=== PATIENT | female | born 2000 | race Caucasian/White ===

== ENCOUNTER 2023-05-11 11:00 | Outpatient (OUT) | payer OTHER, BC, SELFPAY ==
[2023-05-11 11:33] LABS: Basophils Percent Auto 0.6 % (0.2-2.0); Eosinophils Absolute Auto 0.1 10^3/uL (0.0-0.7); Eosinophils Percent Auto 1.7 % (0.9-7.0); Hematocrit 38.8 % (36.0-48.0); Hemoglobin 13.2 g/dL (12.0-16.0); Immature Granulocytes Abs Auto 0.01 10^3/uL (0.00-0.03); Immature Granulocytes Pct Auto 0.2 % (0.0-0.5); Lymphocytes Absolute Auto 1.8 10^3/uL (1.2-3.8); Lymphocytes Percent Auto 38.5 % (20.5-60.0); Mean Corpuscular Hemoglobin 29.9 pg (26.7-34.0); Mean Corpuscular Volume 87.8 fL (81.0-99.0); Mean Platelet Volume 8.4 fL (9.5-13.5); Monocytes Absolute Auto 0.3 10^3/uL (0.3-0.8); Monocytes Percent Auto 5.8 % (1.7-12.0); Neutrophils Absolute Auto 2.5 10^3/uL (1.4-6.5); Neutrophils Percent Auto 53.2 % (43.0-75.0); Platelet Count 237 10^3/uL (150-450); Red Blood Count 4.42 10^6/uL (4.20-5.40); Red Cell Distribution Width 11.5 % (11.0-15.0); White Blood Count 4.7 10^3/uL (4.0-11.0)
[2023-05-11 12:10] LABS: Alanine Aminotransferase 40 U/L (14-59); Albumin Globulin Ratio 0.9; Albumin Level 3.6 g/dL (3.4-5.0); Alkaline Phosphatase 73 U/L (46-116); Anion Gap 13.2; Aspartate Amino Transferase 28 U/L (15-37); BUN Creatinine Ratio 9.3; Bilirubin Total 0.3 mg/dL (0.2-1.0); Calcium 8.6 mg/dL (8.5-10.1); Carbon Dioxide 25.7 mmol/L (21.0-32.0); Chloride 104 mmol/L (98-107); Chol HDL Ratio 5.1; Cholesterol 197 mg/dL (<=200); Estimated GFR (African America >60 (>=60); Estimated GFR (Non-African Ame >60 (>=60); Free T3 3.16 pg/mL (2.18-3.98); Globulin 3.8 g/dL; Glucose 89 mg/dL (74-106); HDL Cholesterol 39 mg/dL (40-60); Potassium 3.9 mmol/L (3.5-5.1); Sodium 139 mmol/L (136-145); Thyroid Stimulating Hormone 2.091 uIU/mL (0.358-3.740); Total Protein 7.4 g/dL (6.4-8.2); Triglycerides 143 mg/dL (<=150); VLDL CHOLESTEROL 28.6 mg/dL
[2023-05-11 12:35] LABS: Free T4 0.89 ng/dL (0.76-1.46)
[2023-05-11 19:24] LABS: Estimated Average Glucose 100 mg/dL; Glycohemoglobin A1C 5.1 % (4.5-6.2)
[2023-05-12 11:08] LABS: Insulin 26.6 uIU/mL (2.6-24.9)
[2023-05-12 13:09] LABS: Thyroglobulin Antibody <1.0 IU/mL (0.0-0.9); Thyroid Peroxidase (TPO) Ab 14 IU/mL (0-34)
[2023-05-12 14:09] LABS: ANA Direct Negative (Negative)
[2023-05-15 00:07] LABS: Free Testosterone(Direct) 3.9 pg/mL (0.0-4.2); Testosterone 58 ng/dL (13-71)
== END 2023-05-11 11:01 | disposition home or self-care (01) ==
LOC: LAB 11:06
PROVIDERS: PCP Nurse Practitioner; Visit Provider Nurse Practitioner
DX: F41.9 Anxiety disorder, unspecified (principal); L65.9 Nonscarring hair loss, unspecified; G47.00 Insomnia, unspecified; E66.01 Morbid (severe) obesity due to excess calories; Z68.41 Body mass index [BMI] 40.0-44.9, adult
CPT/HCPCS: 36415; 80053; 80061; 82627; 82728; 83036; 83525; 84402; 84403; 84439; 84443; 84481; 85025; 86038; 86376; 86800

== ENCOUNTER 2023-05-17 20:42 | Emergency (ER) | payer OTHER, BC, SELFPAY ==
[2023-05-17 20:46] VITALS: BP 131/95; PULSE 114; RESP 18; TEMP 36.7; O2SAT 99; BMI 40.2
--- NOTE | 2023-05-17 21:10 | ED.GENADUL1 ---
Documented by User: Flower Grier 05/17/23 21:31 HPI - General Adult General Chief complaint: OB/Uterine Contractions Stated complaint: spotting Time Seen by Provider: 05/17/23 20:54 Mode of arrival: walk-in History of Present Illness HPI narrative: 22-year-old female presents with chief complaint of vaginal bleeding. She states she had one positive test at home. She's been spotting for the last 2-3 days. She is otherwise healthy no acute distress. She denies a history of in the past.Patient has not had a missed cycle. She is zero. Related Data Home Medications Medication Instructions Recorded Confirmed aripiprazole 10 mg tablet mg 05/17/23 mirtazapine 15 mg tablet mg 05/17/23 venlafaxine 37.5 mg mg PO 05/17/23 capsule,extended release 24 hr Allergies Allergy/AdvReac Type Severity Reaction Status Date / Time No Known Drug Allergies Allergy Verified 05/17/23 20:51 Review of Systems ROS Narrative All Systems are negative except as noted/marked.All systems reviewed and otherwise negative PFSH PFSH Social History Smoking status: Never smoker Exam Narrative Exam Narrative: Nurses note and vital signs reviewed and patient is not hypoxic. General: The patient appears well and in no apparent distress. Patient is resting comfortably on cart. Skin: Warm, dry, no pallor noted. There is no rash noted. Head: Normocephalic, atraumatic Eye: Normal conjunctiva, no drainage, EOMI. PERRL Ears, Nose, Mouth, and Throat: oral mucosa is moist. Nares patent. Mouth without vesicles. Ear canals patent. Tm's without Erythema Cardiovascular: Regular Rate and Rhythm Respiratory: Patient is in no distress, no accessory muscle use, lungs are clear to auscultation, no wheezing, rales or rhonchi Back: non-tender, no CVA tenderness bilaterally to percussion. Musculoskeletal: The patient has no evidence of calf tenderness, no pitting edema, symmetrical pulses noted bilaterally Neurological: A&O x4, normal speech Psychiatric: Cooperative Constitutional Vital Signs, click to edit/add: Last Vital Signs Temp 98.1 F 05/17/23 20:46 Pulse 114 H 05/17/23 20:46 Resp 18 05/17/23 20:46 BP 131/95 H 05/17/23 20:46 Pulse Ox 99 05/17/23 20:46 O2 Del Method Room Air 05/17/23 20:46 Course Vital Signs Vital signs: Vital Signs Temperature 98.1 F 05/17/23 20:46 Pulse Rate 114 H 05/17/23 20:46 Respiratory Rate 18 05/17/23 20:46 Blood Pressure 131/95 H 05/17/23 20:46 Pulse Oximetry 99 05/17/23 20:46 Oxygen Delivery Method Room Air 05/17/23 20:46 Temperature 98.1 F 05/17/23 20:46 Pulse Rate 114 H 05/17/23 20:46 Respiratory Rate 18 05/17/23 20:46 Blood Pressure 131/95 H 05/17/23 20:46 Pulse Oximetry 99 05/17/23 20:46 Oxygen Delivery Method Room Air 05/17/23 20:46 Medical Decision Making MDM Narrative Medical decision making narrative: Patient presented here with chief complaint of vaginal bleeding she states she had a positive presents to test at home she has not yet had a missed menses. She states she has spotting three days ago and again after having intercourse. Patient transfer care to Dr. Longoria. Patient be of be discharged home once labwork on her back. I did discuss results pending with patient. She will follow-up with Dr. Hui. Medical Records Medical records reviewed: Yes I reviewed the patient's medical records Lab Data Labs: Lab Results 05/17/23 05/17/23 Range/Units 21:05 21:27 HCG, Quant 22 mIU/mL Urine HCG, Qual Positive A (NEGATIVE) Blood Type A Positive Discharge Plan Discharge Chief Complaint: OB/Uterine Contractions Clinical Impression: Miscarriage, threatened, early Patient Disposition: Home, Self-Care Prescriptions / Home Meds: No Action venlafaxine 37.5 mg capsule,extended release 24hr PO mirtazapine 15 mg tablet aripiprazole 10 mg tablet Instructions: Threatened Miscarriage (ED) Stand Alone Forms: Portal Instructions Referrals: Ying Reid NP [Primary Care Provider] - 1 week Documented by User: Gabino Longoria MD 05/17/23 22:07 HPI - General Adult General Chief complaint: OB/Uterine Contractions Stated complaint: spotting Time Seen by Provider: 05/17/23 20:54 Related Data Home Medications Medication Instructions Recorded Confirmed aripiprazole 10 mg tablet mg 05/17/23 mirtazapine 15 mg tablet mg 05/17/23 venlafaxine 37.5 mg mg PO 05/17/23 capsule,extended release 24 hr Allergies Allergy/AdvReac Type Severity Reaction Status Date / Time No Known Drug Allergies Allergy Verified 05/17/23 20:51 PFSH PFSH Social History Smoking status: Never smoker Exam Constitutional Vital Signs, click to edit/add: Last Vital Signs Temp 98.1 F 05/17/23 20:46 Pulse 114 H 05/17/23 20:46 Resp 18 05/17/23 20:46 BP 131/95 H 05/17/23 20:46 Pulse Ox 99 05/17/23 20:46 O2 Del Method Room Air 05/17/23 20:46 Course Vital Signs Vital signs: Vital Signs Temperature 98.1 F 05/17/23 20:46 Pulse Rate 114 H 05/17/23 20:46 Respiratory Rate 18 05/17/23 20:46 Blood Pressure 131/95 H 05/17/23 20:46 Pulse Oximetry 99 05/17/23 20:46 Oxygen Delivery Method Room Air 05/17/23 20:46 Temperature 98.1 F 05/17/23 20:46 Pulse Rate 114 H 05/17/23 20:46 Respiratory Rate 18 05/17/23 20:46 Blood Pressure 131/95 H 05/17/23 20:46 Pulse Oximetry 99 05/17/23 20:46 Oxygen Delivery Method Room Air 05/17/23 20:46 Medical Decision Making MDM Narrative Medical decision making narrative: Patient presented here with chief complaint of vaginal bleeding she states she had a positive presents to test at home she has not yet had a missed menses. She states she has spotting three days ago and again after having intercourse. Patient transfer care to Dr. Longoria. Patient be of be discharged home once labwork on her back. I did discuss results pending with patient. She will follow-up with Dr. uHi. care transferred at change of shift. labs returned with positive . Patient advised of the working diagnosis of bleeding early or threatened miscarriage. 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
[2023-05-17 21:33] LABS: HCG Quantitative 22 mIU/mL
[2023-05-17 21:35] LABS: HCG Qualitative Urine* POSITIVE (NEGATIVE)
== END 2023-05-17 22:21 | disposition home or self-care (01) ==
PROVIDERS: Physician Assistant; Emergency Provider Internal Medicine; PCP Nurse Practitioner
DX: O20.0 Threatened abortion (principal); Z3A.00 Weeks of gestation of pregnancy not specified; Z79.899 Other long term (current) drug therapy
CPT/HCPCS: 36415; 84702; 84703; 86900; 86901; 99283

== ENCOUNTER 2023-05-19 15:05 | Outpatient (OUT) | payer OTHER, BC, SELFPAY ==
[2023-05-19 15:45] LABS: HCG Quantitative 47 mIU/mL
== END 2023-05-19 15:06 | disposition home or self-care (01) ==
PROVIDERS: PCP Nurse Practitioner; Visit Provider Nurse Practitioner
DX: Z32.01 Encounter for pregnancy test, result positive (principal)
CPT/HCPCS: 36415; 84702

== ENCOUNTER 2023-05-25 06:36 | Outpatient (OUT) | payer OTHER, BC, SELFPAY ==
[2023-05-25 07:43] LABS: HCG Quantitative 143 mIU/mL
== END 2023-05-25 06:37 | disposition home or self-care (01) ==
LOC: LAB 06:38
PROVIDERS: PCP Nurse Practitioner; Visit Provider Nurse Practitioner
DX: Z32.01 Encounter for pregnancy test, result positive (principal)
CPT/HCPCS: 36415; 84702

== ENCOUNTER 2023-06-01 20:52 | Emergency (ER) | payer OTHER, BC, SELFPAY ==
[2023-06-01 20:58] VITALS: BP 133/100; PULSE 91; RESP 16; TEMP 37.3; O2SAT 99; BMI 40.2
--- NOTE | 2023-06-01 21:22 | ED_ITS ---
HPI - Female Genitourinary General Chief complaint: OB/Uterine Contractions Stated complaint: 7WKS , CRAMPING, BLEEDING, FEVER Time Seen by Provider: 06/01/23 21:00 Source: patient Mode of arrival: walk-in History of Present Illness HPI Narrative: This 22-year-old female presents for evaluation of lower abdominal cramping With a small amount of spotting. The patient has been seen here recently and was told she was . She has had several beta quantitative hCGs done. She states she has had intermittent spotting since finding out that she was but today it became more red and pink. She states it is less than a menstrual period. She is also having some lower abdominal cramping. She was seen for a nurse visit at Dr. Hui office earlier today, this is her EDUCATIONAL SPECIALIST in [place]. She is scheduled for an ultrasound next week. She denies any passage of tissues. She is not having any back pain. She states she is not certain how far along she is in her because she had a menstrual period in April and then in May. She and her boyfriend then had sex and she was told that she was . This is her 1st test. She had a quantitative hCG done earlier today in [place]. Related Data Home Medications Medication Instructions Recorded Confirmed aripiprazole 10 mg tablet mg 05/17/23 mirtazapine 15 mg tablet mg 05/17/23 venlafaxine 37.5 mg mg PO 05/17/23 capsule,extended release 24 hr Allergies Allergy/AdvReac Type Severity Reaction Status Date / Time No Known Drug Allergies Allergy Verified 06/01/23 21:02 Review of Systems ROS Status of ROS 10 or more systems reviewed and unremarkable except as noted in history and below [facility] Social History Smoking status: Never smoker Exam Narrative Exam Narrative: Nurses note and vital signs reviewed and patient is not hypoxic. Blood pressure noted to be elevated at 133/100 General: The patient appears well and in no apparent distress. Patient is resting comfortably on cart. Skin: Warm, dry, no pallor noted. There is no rash noted. Head: Normocephalic, atraumatic Eye: Normal conjunctiva, no drainage, EOMI. PERRL Ears, Nose, Mouth, and Throat: oral mucosa is moist. Cardiovascular: Regular Rate and Rhythm S1S2, no murmurs, rubs or gallops Respiratory: Patient is in no distress, no accessory muscle use, lungs are clear to auscultation, no wheezing, rales or rhonchi Back: non-tender, no CVA tenderness bilaterally to percussion. GI: Obese, soft, non-distended, no rebound , guarding or rigidity - pt declines exam Musculoskeletal: The patient has no evidence of calf tenderness, no pitting edema, symmetrical pulses noted bilaterally Neurological: A&O x4, normal speech Psychiatric: Cooperative Constitutional Vital Signs, click to edit/add: Last Vital Signs Temp 99.1 F 06/01/23 20:58 Pulse 91 H 06/01/23 20:58 Resp 16 06/01/23 20:58 BP 133/100 H 06/01/23 20:58 Pulse Ox 99 06/01/23 20:58 O2 Del Method Room Air 06/01/23 20:58 Course Reevaluation(s) Reevaluation #1: Pts blood type is A+ Vital Signs Vital signs: Vital Signs Temperature 99.1 F 06/01/23 20:58 Pulse Rate 91 H 06/01/23 20:58 Respiratory Rate 16 06/01/23 20:58 Blood Pressure 133/100 H 06/01/23 20:58 Pulse Oximetry 99 06/01/23 20:58 Oxygen Delivery Method Room Air 06/01/23 20:58 Temperature 99.1 F 06/01/23 20:58 Pulse Rate 91 H 06/01/23 20:58 Respiratory Rate 16 06/01/23 20:58 Blood Pressure 133/100 H 06/01/23 20:58 Pulse Oximetry 99 06/01/23 20:58 Oxygen Delivery Method Room Air 06/01/23 20:58 MDM - Female Genitourinary MDM Narrative Medical decision making narrative: This 22-year-old female whose last menstrual period was either in April or May presents for evaluation of lower abdominal cramping and light va ginal bleeding/spotting. Been having these symptoms throughout her entire and has been told that she is at risk for a miscarriage. She has not had any passage of any tissue. She was seen yesterday at her EDUCATIONAL SPECIALIST's office by a nurse and had a beta quantitative hCG done. We were unable to get the results of the hCG and ordered one from the emergency department. Her number today is 129. This is decreased from a previous quantitative hCG that she had approximately one week ago. Her blood type is A positive. She is hemodynamically stable in emergency department. She declined a pelvic exam and we do not have any. since we do not have any ultrasound available at night she was offered an ultrasound tomorrow and will come to the hospital for a follow up US at 7am. She was encouraged to not empty her bladder when she gets up and come to registration around 6:30 for the US appointment at 7am. Clinically, as I explained to her, she is still considered to have a threatened miscarriage. Lab Data Labs: Lab Results 06/01/23 Range/Units 21:45 HCG, Quant 129 mIU/mL Discharge Plan Discharge Chief Complaint: OB/Uterine Contractions Clinical Impression: Miscarriage, threatened, early Time of Disposition Decision: 22:36 Condition: Good Prescriptions / Home Meds: No Action venlafaxine 37.5 mg capsule,extended release 24hr PO Hold Instructions: mirtazapine 15 mg tablet Hold Instructions: aripiprazole 10 mg tablet Hold Instructions: Doctor's Order Instructions: Threatened Miscarriage (ED) Additional Instructions: Follow-up tomorrow for your ultrasound at 7 AM. Please keep your bladder full prior to the ultrasound. Return to the emergency department for severe abdominal pain, heavy vaginal bleeding or other concerns. Stand Alone Forms: Portal Instructions Referrals: Ying Reid NP [Primary Care Provider] - 1 week
[2023-06-01] MEDS: ACETAMINOPHEN 325 MG TABLET 650 MG PO (21:47)
[2023-06-01 22:14] LABS: HCG Quantitative 129 mIU/mL
[2023-06-01 22:30] LABS: Bilirubin Urine NEGATIVE (NEGATIVE); Blood Urine LARGE (NEGATIVE); Clarity Urine CLEAR (CLEAR); Color Urine LT. YELLOW (YELLOW); Glucose Urine UA NEGATIVE (NEGATIVE); Ketones Urine NEGATIVE (NEGATIVE); Leukocyte Esterase Urine NEGATIVE (NEGATIVE); Nitrite Urine NEGATIVE (NEGATIVE); Protein Urine NEGATIVE (NEG/TRACE); Specific Gravity Urine >=1.030 (1.005-1.025); Urobilinogen Urine 0.2 EU/dL (0.2-1.0)
[2023-06-01 22:37] LABS: Bacteria Urine LARGE #/HPF (NONE SEEN); Cast Seen? NONE SEEN #/LPF (NONE SEEN); Crystals Seen? None Seen #/HPF (None Seen); Mucus Urine LARGE (NONE SEEN); Squamous Epithelial Cell Urine MANY #/LPF (NONE/RARE)
== END 2023-06-01 22:46 | disposition home or self-care (01) ==
PROVIDERS: Emergency Provider Emergency Medicine; PCP Nurse Practitioner
DX: O20.0 Threatened abortion (principal); Z3A.01 Less than 8 weeks gestation of pregnancy
CPT/HCPCS: 36415; 81001; 84702; 99284

== ENCOUNTER 2023-06-02 06:29 | Outpatient (OUT) | payer OTHER, BC, SELFPAY ==
--- NOTE | 2023-06-02 | US_ITS ---
[place] [id number] Patient Name: LETICIA NUGENT MRN: [id number] date: 2000 Sex: F Assigned Patient Location: RAD Current Patient Location: RAD Accession/Order Number: [id number] Exam Date: 06/02/2023 07:01 Report Date: 06/02/2023 08:06 At the request of: NON-STAFF PHYSICIAN Procedure: US OB transvaginal EXAMINATION: US OB transvaginal HISTORY: preg., vag bleeding COMPARISON: No relevant comparison available. FINDINGS: GESTATIONAL SAC: Absent YOLK SAC: Absent POLE: Absent CARDIAC: Absent UTERUS: Normal size and appearance; endometrium is homogeneous and 6 mm in thickness. OVARIES: Right: Contains 2 prominent slightly complex cysts, 4.7 cm and 3.8 cm respectively. Left: Contains a 2.4 cm slightly complex cyst. CERVIX: 3.1 cm in length and closed. CUL-DE-SAC: Normal. OTHER: None. AGE BY LMP: 8 weeks 1 day KAPIL BY LMP: 01/11/[birth year]24 AGE BY US CRL: Not applicable KAPIL BY US CRL: US/US OB transvaginal IMPRESSION: 1. No intrauterine . 2. Thin endometrium and no overtly suspicious adnexal findings to suggest ectopic . 3. Prominent bilateral ovarian cysts; consider follow-up imaging in 6 weeks to document regression. Electronically authenticated by: GISELL BARBER Date: 06/02/2023 08:06
== END 2023-06-02 06:30 | disposition home or self-care (01) ==
LOC: RAD 06:32
PROVIDERS: PCP Nurse Practitioner
DX: O20.9 Hemorrhage in early pregnancy, unspecified (principal); Z3A.08 8 weeks gestation of pregnancy
CPT/HCPCS: 76817

== ENCOUNTER 2023-09-08 00:56 | Emergency (ER) | payer OTHER, BC, SELFPAY ==
[2023-09-08 01:00] VITALS: BP 159/95; PULSE 88; RESP 16; TEMP 36.8; O2SAT 99; BMI 42.1
--- OUTSIDE RECORDS SUMMARY | 2023-09-08 01:03 | XMS_ITS | CCD ---
Author Name Unknown Address [address] [place] [address] Organization [facility] Care Team Providers Care Pulp Grinder Feeder Name Role Phone IRFAN, DHRUV Unavailable Unavailable ARCELIA FLETCHER () Unavailable Unavaila ARCELIA Baeza) Unavailable Unavaila ARCELIA Baeza) Unavailable Unavaila ble ARCELIA FLETCHER) Unavailable Unavaila ble ARCELIA FLETCHER) Unavailable Unavaila ble CARLOS OCHOA E Unavailable Unavailable IRFAN, DHRUV Unavailable Unavailable IRFAN, DHRUV Unavailable Unavailable IRFAN, DHRUV Unavailable Unavailable IRFAN, DHRUV Unavailable Unavailable Esther Beal Unavailable Crys Truong Unavailable Mitzi Obregon Unavailable KATHY RIED Attending Unavailable KATHY REID Consulting Unavailable KATHY REID Primary Care Unavailable KATHY REID Admitting Unavailable Lei Salmeron MD Primary Care Provider Jeanette DRIVER LICENSE TECHNICIAN, Ying Unavailable KELSY WALKER Attending Unavailable KELSY WALKER Referring Unavailable KELSY WALKER Attending Unavailable YING REID Attending Unavailable Medications Current Medications Medication Drug Class(es) Dates Sig (Normalized) Sig (Original) aspirin 81 mg chewable tablet (3 sources) Platelet Aggregation Inhibitor, Nonsteroidal Anti-inflammatory Drug Start: 07-16-2023 End: 07-15-2024 aspirin 81 MG chewable tablet Indications: Miscarriage Chew 1 tablet (81 mg) in the morning. 30 tablet 11 07/16/2023 07/15/2024 Active azithromycin 250 mg oral tablet (2 sources) Macrolide Antimicrobial Start: 08-18-2023 azithromycin (Zithromax) 250 MG tablet Indications: Laryngitis 2 pills day #1, 1 pill day #2-#5 6 tablet 0 08/18/2023 Active Start: 08-18-2023 azithromycin ( Zithromax) 250 MG tablet Indications: Laryngitis 2 pills day #1, 1 pill day #2-#5 6 tablet 0 08/18/2023 Active olopatadine 2 mg/ml ophthalmic solution (1 source) Histamine-1 Receptor Inhibitor Start: 12-09-2021 take 1 drop(s) into the eye(s) once daily Pataday 0.2 % 1 drop into affected eye Ophthalmic Once a day Dec, Active Completed/Discontinued Medications Medication Drug Class(es) Dates Sig (Normalized) Sig (Original) Biotin (3 sources) Biotin Not-Takin g Complete (3 sources) Complet e Not-Taking Problems Active Problems Problem Classification Problem Date Documented Da te Episodic/Chronic Adjustment disorders (3 sources) Adjustment disorder with depressed mood; Translations: [Adjustment disorder with depressed mood] Onset: 08-18-2023 08-18-2023 Chronic Anxiety disorders (3 sources) Mixed anxiety and depressive disorder; Translations: [Anxiety disorder, unspecified] Onset: 08-18-2023 08-18-2023 Chronic Disorders of teeth and jaw (3 sources) Torus palatinus; 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] Onset: 08-18-2023 08-18-2023 Episodic Menstrual disorders (3 sources) Break-through bleeding; Translations: [Excessive and frequent menstruation with irregular cycle] Onset: 08-18-2023 08-18-2023 Chronic Miscellaneous mental health disorders (1 source) Primary insomnia; Translations: [PRIMARY INSOMNIA] Onset: 08-07-2022 Chronic Mood disorders (3 sources) Mood disorder; Translations: [Unspecified mood [affective] disorder] Onset: 08-18-2023 08-18-2023 Chronic Other endocrine disorders (3 sources) Hyperinsulinism; Translations: [Other hypoglycemia] Onset: 08-18-2023 08-18-2023 Chronic Other endocrine disorders (3 sources) Polycystic ovary syndrome; Translations: [Polycystic ovarian syndrome] Onset: 08-18-2023 08-18-2023 Chronic Other nutritional; endocrine; and metabolic disorders (5 sources) Body mass index 40+ - severely obese; Translations: [Morbid (severe) obesity due to excess calories] Onset: 08-18-2023 08-18-2023 Chronic Other skin disorders (3 sources) Alopecia; Translations: [Nonscarring hair loss, unspecified] Onset: 08-18-2023 08-18-2023 Episodic Other upper respiratory disease (1 source) Allergic rhinitis, unspecified Onset: 12-09-2021 Resolved: 12-09-2021 Chronic Other upper respiratory disease (3 sources) Allergic rhinitis; Translations: [Allergic rhinitis, unspecified] Onset: 08-18-2023 08-18-2023 Chronic Other upper respiratory infections (4 sources) Laryngitis; Translations: [Acute laryngitis] Onset: 08-18-2023 08-18-2023 Episodic Residual codes; unclassified (4 sources) Obstructive sleep apnea (adult) (pediatric); Translations: [OBSTRUCTIVE SLEEP APNEA] Onset: 08-05-2022 Chronic Residual codes; unclassified (3 sources) Insomnia; Translations: [Insomnia, unspecified] Onset: 08-18-2023 08-18-2023 Episodic Unclassified (1 source) Unknown / UNK(Unknown) Onset: 01-02-2017 Viral infection (4 sources) COVID-19; Translations: [Other specified viral infection] Onset: 06-19-2022 08-18-2023 Episodic Past or Other Problems Problem Classification Problem Date Documented Da te Episodic/Chronic Immunizations and screening for infectious disease (3 sources) Contact with and (suspected) exposure to other viral communicable diseases; Translations: [Encounter for screening for other viral diseases] Onset: 05-16-2021 Resolved: 12-09-2021 Episodic Inflammation; infection of eye (except that caused by tuberculosis or sexually transmitteddisease) (1 source) Acute atopic conjunctivitis, right eye Onset: 12-09-2021 Resolved: 12-09-2021 Episodic Viral infection (1 source) COVID-19 Onset: 05-16-2021 Resolved: 05-16-2021 Results Test Name Value Interpretation Reference Range Facility COVID Quick Testingon 2021 Result Negative [facility] Other Quick Fluon 12-09-2021 FLUAV Ab CF (S) [Titer] Negative [facility] Other FLUBV Ab CF (S) [Titer] Negative [facility] Other COVID Quick Testingon 2021 Result Negative [facility] Other COVID Quick Testingon 2020 Result Positive [facility] Other CNOVon 07-24-2017 CNOV Office Visit (DERMMN) -JOVANNASHANEKA ALBERTS ([id number]) 4 FDate Time Provider Department07/24/17 2:25 PM DHRUV DICKERSON DERMMN During your visit today, we recorded the following information about you: Blood pressure Weight 112/60 86.7 kgMapablito Dickerson MD, MD 07/24/2017 9:00 PM SignedHistory of Present Illness:Shaneka Nugent is a 17 year old female seen today for follow-up evaluationof alopecia. Here today with mom and sibling.Interim Course: slight improvement/regrowthAreas of hair loss: scalpPattern: patchyAssociated Symptoms: Pruritis and Poor self esteem, pain after injections,scabs after injectionsCurrent Treatments: ILK injection, Biotin, Minoxidil, clobetasolAlopecia Medication Compliance: Not using topical and systemic medications asprescribed at last visitSide effects from Treatments: pain and scabbing after injectionsInterim Test Results: noneALLERGIESNo Known AllergiesCurrent Outpatient Prescriptions:cholecalciferol (VITAMIN D3) 5,000 unit tab Take 5,000 Units by mouth oncedaily. Disp: Rfl:triamcinolone acetonide (KENALOG 10) 10 mg/mL injection Intralesional kenalog 5mg/ml up to 3 ml to areas of hair loss. May repeat every 4-6 weeks. Disp: 3 mLRfl: 4spironolactone (ALDACTONE) 50 mg tablet Take 1 tablet by mouth once daily.Disp: 30 tablet Rfl: 5PNV NO.115/IRON FUMARATE/FA ( #277-[id number] ACID ORAL) Take 1 tabletby mouth once daily. Disp: Rfl:Clobetasol Propionate (TEMOVATE) 0.05 % external solution Apply 8-10 dropsdaily to the scalp Disp: 1 Bottle Rfl: 1biotin 5,000 mcg ODT Take 2 capsules by mouth once daily. Disp: Rfl:Minoxidil 5 % soln Apply once daily to scalp Disp: 1 Bottle Rfl: 2No current facility-administered medications for this visit.Review of systems:GENERAL: No fevers or irritability.Normal sleep, appetite and activitySKIN: See HPIPhysical Exam:Wt 86.7 kg (191 lb 3.2 oz) BMI 34.74 kg/r2Jjtncvq appearance: well appearing, alert, in no acute distressMood/Affect:PleasantS calp:Over the frontal hairline, vertex and crown is a patch of diffusealopecia with hairs of several different lengths withinAdditional Diagnostic Testing performed during Exam: NoneImpression and Plan:Trichotillomania- Mother does not think patient is causing the hair loss herself but thepatient has some insight into this- We at length discussed the things in her life causing her stress: fatheralways working, grandmother relationship, school friends, school work. Shanekais seeing a psychologist and has seen her twice so far. She will continueworking on this- Continue multivtamin, vit D, biotin forte- Restart clobetasol solution once dailyPatient Education: 60 minutes of total visit spent face to face with patientand family. Greater than 50% of the time was spent on counseling andcoordination of care, discussing diagnosis, typical progression, treatmentoptions, side effects and recommendations.Follow-up: 3 monthsCLARK Philippe spent 45 minutes in the visit, with more than 50% of the total fowr-lo-xlxggwin of the visit in counseling / coordination of care.I have seen and examined Ms. Nugent. I have discussed the case and themanagement of this patient's care with the Resident.I also have reviewed and agree with the assessment and plan as stated above andagree with all of its relevant components.There were no procedures performed during this patient?s visit.Antony Alaniz MD 07/24/2017 3:33 PM Signed- Retart Clobetasol Propionate (TEMOVATE) 0.05 % external solution; Apply8-10 drops daily to the scalp- Continue multivtamin, Vitamin D, and biotin forte- Cont counselingReferring Provider: DHRUV DICKERSON [[id number]]Allergies As of Date: 07/24/2017(No Known Allergies)Date Reviewed: 06/25/2017Reviewed by: Rosa Fair LPN - Fully AssessedReason for Visit: Hair Loss [933]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]Prescriptions as of 07/24/2017 Sig: CHOLECALCIFEROL (VITAMIN D3) * Take 5,000 Units by mouth onc* TRIAMCINOLONE ACETONIDE 10 MG* Intralesional kenalog 5 mg/ml* SPIRONOLACTONE 50 MG TABLET Take 1 tablet by mouth once d* #605-NAUB-DFAQO ACID* Take 1 tablet by mouth once d* CLOBETASOL 0.05 % SCALP SOLUT* Apply 8-10 drops daily to the* BIOTIN 5,000 MCG DISINTEGRATI* Take 2 capsules by mouth once* MINOXIDIL 5 % TOPICAL SOLUTION Apply once daily to scalpMedication notes this encounter BIOTIN 5,000 MCG DISINTEGRATING TABLET >> Nora Gonzalez LPN 07/24/2017 2:18 PM >> NORA GONZALEZ LPN Fri Jul 24, 2017 2:18 PM Not takingProblem List As Of Date: 07/24/2017(None) Other instructions from your clinician: - Retart Clobetasol Propionate (TEMOVATE) 0.05 % external solution; Apply 8-10 drops daily to the scalp - Continue multivtamin, Vitamin D, and biotin forte - Cont counselingDisposition: Return in about 3 months (around 10/22/2017).Follow-up and Disposition History RecordedEncounter Number: [id number] Status:Closed by DHRUV DICKERSON MD on 07/24/17 Normal [facility] PROGRESSon 07-24-2017 PROGRESS HNO ID: [id number] thor: Yonis Alanizice: (none)Author Type: PhysicianType: Progress NotesFiled: 07/24/2017 9:00 PMNote Text:History of Present Illness:Shaneka Nugent is a 17 year old female seen today for follow-upevaluation of alopecia. Here today with mom and sibling.Interim Course: slight improvement/regrowthAreas of hair loss: scalpPattern: patchyAssociated Symptoms: Pruritis and Poor self esteem, pain after injections,scabs after injectionsCurrent Treatments: ILK injection, Biotin, Minoxidil, clobetasolAlopecia Medication Compliance: Not using topical and systemic medicationsas prescribed at last visitSide effects from Treatments: pain and scabbing after injectionsInterim Test Results: noneALLERGIESNo Known AllergiesCurrent Outpatient Prescriptions:cholecalciferol (VITAMIN D3) 5,000 unit tab Take 5,000 Units by mouth oncedaily. Disp: Rfl:triamcinolone acetonide (KENALOG 10) 10 mg/mL injection Intralesionalkenalog 5 mg/ml up to 3 ml to areas of hair loss. May repeat every 4-6weeks. Disp: 3 mL Rfl: 4spironolactone (ALDACTONE) 50 mg tablet Take 1 tablet by mouth once daily.Disp: 30 tablet Rfl: 5PNV NO.115/IRON FUMARATE/FA ( #388-BSKC-QZLAY ACID ORAL) Take 1tablet by mouth once daily. Disp: Rfl:Clobetasol Propionate (TEMOVATE) 0.05 % external solution Apply 8-10 dropsdaily to the scalp Disp: 1 Bottle Rfl: 1biotin 5,000 mcg ODT Take 2 capsules by mouth once daily. Disp: Rfl:Minoxidil 5 % soln Apply once daily to scalp Disp: 1 Bottle Rfl: 2No current facility-administered medications for this visit.Review of systems:GENERAL: No fevers or irritability.Normal sleep, appetite and activitySKIN: See HPIPhysical Exam:Wt 86.7 kg (191 lb 3.2 oz) BMI 34.74 kg/z2Vazdvhn appearance: well appearing, alert, in no acute distressMood/Affect:PleasantS calp:Over the frontal hairline, vertex and crown is a patch of diffusealopecia with hairs of several different lengths withinAdditional Diagnostic Testing performed during Exam: NoneImpression and Plan:Trichotillomania- Mother does not think patient is causing the hair loss herself but thepatient has some insight into this- We at length discussed the things in her life causing her stress: fatheralways working, grandmother relationship, school friends, school work.Shaneka is seeing a psychologist and has seen her twice so far. She willcontinue working on this- Continue multivtamin, vit D, biotin forte- Restart clobetasol solution once dailyPatient Education: 60 minutes of total visit spent face to face withpatient and family. Greater than 50% of the time was spent on counselingand coordination of care, discussing diagnosis, typical progression,treatment options, side effects and recommendations.Follow-up: 3 monthsCLARK Philippe spent 45 minutes in the visit, with more than 50% of the jcarvimjb-bo-rubt time of the visit in counseling / coordination of care.I have seen and examined Ms. Nugent. I have discussed the case and themanagement of this patient's care with the Resident.I also have reviewed and agree with the assessment and plan as statedabove and agree with all of its relevant components.There were no procedures performed during this patient?s visit.Dhruv Dickerson MD [facility] PROGRESS HNO ID: [id number] thor: Hilaria (Rd) SchneeService: (none)Author Type: Registered DietitianType: Progress NotesFiled: 08/23/2017 8:32 PMNote Text:REASSESSMENT VISITPEDIATRIC NUTRITIONSERVICE DATE: 07/24/2017SERVICE TIME: 1:45 PMDate of last nutrition encounter 04/24/17.Reason for reassessment: obesity as dx by Arcelia Fletcher MD on04/24/17Nutrition Assessment:Shaneka Nugent presents presents today with a weight gain of 4 kg overthe past 2 months which fails to meet weight loss goal. BMI/age remains >95th%ile, indicating obese status; z-score shows no evidence ofmalnutrition. BMI indicates Class II obesity as plotted on the Extreme BMIGrowth Charts at 120-140% of the 95th%ile. Current diet remains excessivein total energy intake, specifically from refined carbohydrates and addedsugars. Pt is mostly sedentary. Patient/parent agreeable torecommendations made for diet and lifestyle changes.Likelihood of Adherence: ModerateNutritional status: In the context of Chronic Illness based on:Z score: BMI for age above normative standardsWeight loss: no weight lossIntake: excessive energy intakeMUAC: deferred, pt well nourishedBody fat: adequate body fatMuscle mass: adequate muscle massFluid accumulation categorized as no fluid accumulationFunctional capacity no changeRECOMMEND DIAGNOSIS: NO MALNUTRITION IDENTIFIEDNutrition Diagnosis:Obesity related to excessive energy intake and inadequate physicalactivity as evidenced by BMI/age >95th%ile.Nutrition Interventions:1. Goal to have breakfast daily: Mix 1 cup milk (whole Is ok if that isall that is available at home) with carnation instant breakfast.2. Lunch: Look at school lunch menu and make a calendar marking what daysyou will not each school lunch.Ideally, goal to pack at least 3 days per week1 serving grain: 1 sl whole wheat bread, or 2 sl low calorie bread1 fruit: 1 small apple, 1/2 banana, 1 serving dried fruit1 veggie: celery, carrots, pepper, cucumbers1 protein: deli meat, 2 TBSP peanut butter, ecuadorean yogurt1 dairy: milk, string cheese, ecuadorean yogurt3. Dinner: Follow the healthy plate method at dinner: 1/2 platenon-starchy veggies, 1/4 plate protein, 1/4 plate starch (includes corn,peas, potatoes) Remember, protein and veggies should be the focus of the meal.If still hungry after first helping at dinner, wait 20 minutes, drink anentire glass of water, ask yourself: Am I really hungry? If yes, ok togo back for more protein or veggies.Nutrition Monitoring and Evaluation: weight loss no >2 lb/wk until BMI/age<85th%ile; adherence to nutrition related recommendationsCriteria: labs/vitals; patient and parent reportRD to follow up x 6-8 weeks months for attainment of goals. Shaneka Nugent is a 17 year old female, who presents with mother todayto discuss interval weight and nutritional intake changes since last visiton 04/24/17. Mother reports pt could be eating better and moving more, ptagrees.Previous Recommendations:1. Reinforced previous recommendations2. Goal to have a minimum of 1 vegetable each day + 1 fruit each day - notmet3. Continue the exercise - at least 30-60 minutes of walking each - notmet, weather and she would rather sleepNutrition Progression: Oral:Breakfast: sometimes - poptart (usually skips breakfast, she would rathersleep)AM Snacks: noneLunch: sometimes gets it at school, sometimes doesn't eat (doesn't likethe options or doesn't feel like eating)PM Snacks: salad w/ cheese + ranch OR a single serving bag of chipsDinner: chicken rcoio + broccoli + salad; spaghetti squash w/ meatballs+ salad; chicken (hernandez seared or baked) w/ ketchup + rice + broccoli Goes back for second helpings at dinner.HS Snacks: ice creamBeverages: water, vanilla milk at school, sometimes whole milk at homeSweets: 3-4 days per week, occ brownies/cake, cookies (mom tries to avoidbuying)Dining out: trying to cut back, now at 1-2 days per week - fast food,pizzaSupplements/Medicat ions: nonePhysical activity level: Sedentary (no activity outside of activities ofdaily living)Estimated needs:15-20 kcal/kg (EER and obesity coefficients)0.85 g pro/kg (DRI)Maintenance fluids: 2400+ ml/dayAnthropometrics: CDC growth chartWeight: 86.7 kg Percentile: > 97thZ score: 2.05Z score trends:1.95 (04/24/17)Previous Weight: 82.7 kg (04/24/17)Height: 158 cm Percentile: 27thZ score: -0.61Z score trends:-0.62 (04/24/17)Previous Height: 157.6cm (04/24/17)BMI/age: 34.73 kg/m2 Percentile: > 97thZ score: 2.21Z score trends:2.13 (04/24/17)Previous BMI/age: 33.29 kg/m2IBW/height @85th%ile: 59.9 kg%IBW/height: 145%Extreme BMI CDC growth chart: 120-130th%ile of the 95th%ileMUAC: deferred, pt visibly well nourishedNutrition Significant Lab Values: no new nutrition related labs for reviewNutrition Focused Physical Exam:Subcutaneous Fat Loss: Orbital:No fat loss Upper Body: No fat loss Lower Body: No fat lossMuscle Loss Locations:Temporalis: No muscle lossUpper Body: No muscle lossLower Body: No muscle lossAssessment of functional status: No functional impairment, normal with nolimitationsAscites: NoEdema: NoPotential micronutrient deficiency revealed in No deficiency identifiedPotential Signs of Inflammation: no identifiable sourcesEducation:READINESS TO LEARNCognitive Ability: Alert and orientedMotivation to Learn: EagerInterestedFamily Support: High - Very involved in pt careInstruction Provided to: Patient and MotherPatient Learns Best by: Unable to AssessFactors Affecting Learning: NonePhysical Limitations Affecting Learning: NoneSupplemental Material Provided to Patient: NoneFood related allergies: Review of patient's allergies indicates no knownallergies.Is the patient having any pain that is interfering with oral/enteralintake: NoTime Spent: 30 minutesSIGNATURE: Hilaria Gutierrez, MS, RD, CSP, LD PATIENT NAME: Shaneka Gannon LippertDATE: July 24, 2017 : 1:45 PM PAGER: [phone] Normal [facility] PROGRESSon 07-21-2017 PROGRESS HNO ID: [id number] thor: Rosa Fair LPNService: (none)Author Type: (none)Type: Progress NotesFiled: 07/21/2017 2:25 PMNote Text:>> Rosa Fair LPN 06/25/2017 3:58 PMKenalog given as prescribed. Dose count: 3 of 4Dose: 10mg/ml; Administered 5mg/ml to total 2 ml intralesional; Site:ScalpPatient tolerated well Normal [facility] CNOVon 06-25-2017 CNOV Office Visit (DERMIN) -JOVANNASHANEKA ([id number]) 4 FDate Time Provider Lecgycyptw64/21/17 2:20 PM NURSE DERM [facility] INDP DERMIN During your visit today, we recorded the following information about you:Rosa Fair LPN 07/21/2017 2:25 PM SignedANDgt;ANDgt; Rosa Fair LPN 06/25/2017 3:58 PMKenalog given as prescribed. Dose count: 3 of 4Dose: 10mg/ml; Administered 5mg/ml to total 2 ml intralesional; Site: ScalpPatient tolerated wellReferring Provider: DHRUV DICKERSON [[id number]]Allergies As of Date: 06/25/2017(No Known Allergies)Date Reviewed: 06/25/2017Reviewed by: Rosa Fair LPN - Fully AssessedReason for Visit: Hair Loss [933]Primary Visit Diagnosis:Alopecia areata [L63.9]Prescriptions as of 06/25/2017 Sig: CHOLECALCIFEROL (VITAMIN D3) * Take 5,000 Units by mouth onc* TRIAMCINOLONE ACETONIDE 10 MG* Intralesional kenalog 5 mg/ml* SPIRONOLACTONE 50 MG TABLET Take 1 tablet by mouth once d* BIOTIN 5,000 MCG DISINTEGRATI* Take 2 capsules by mouth once* #024-SSEI-FYFRV ACID* Take 1 tablet by mouth once d* MINOXIDIL 5 % TOPICAL SOLUTION Apply once daily to scalp CLOBETASOL 0.05 % SCALP SOLUT* Apply 8-10 drops daily to the*Problem List As Of Date: 06/25/2017(None) Status:Closed by ROSA FAIR LPN on 07/21/17 [facility] PROGRESSon 06-17-2017 PROGRESS HNO ID: [id number] thor: Rosa TOVARervice: (none)Author Type: (none)Type: Progress NotesFiled: 06/17/2017 1:30 PMNote Text:Kenalog given as prescribed. Dose count: 2 of 4Dose: 10mg/ml; Administered 5mg/ml to total 2 ml intralesional; Site:ScalpPatient tolerated wellRosa Fair LPN Normal [facility] 06-08-2017 [facility] Get Medical Advic e (DERMMN) -SHANEKA NUGENT ([id number]) 4 FDate Time Provider Vrjzzfqsqv66/4/17 DHRUV DICKERSON During your visit today, we recorded the following information about you:Rachid Arguello LPN 06/12/2017 4:31 PM SignedDrMoira Dickerson,Please read the letter below. ok to fax to the parent?To Whom it May Concern:Shaneka Nugent is diagnosis with Alopecia areata. This is a conditionassociated with hair loss and baldness. Please allow Shaneka to wear a hat tocover her head to avoid embarrassment and being questioned from her schoolmates. The hat gives Shaneka self- confidence. at school.Please call the office for any questions or concerns.Sincerely,Dr. Dhruv Arguello LPN 06/12/2017 5:11 PM SignedLetter generated and faxed to [phone] As of Date: 06/08/2017(No Known Allergies)Date Reviewed: 05/27/2017Reviewed by: Rosa Fair LPN - Fully AssessedPrescriptions as of 06/08/2017 Sig: CHOLECALCIFEROL (VITAMIN D3) * Take 5,000 Units by mouth onc* TRIAMCINOLONE ACETONIDE 10 MG* Intralesional kenalog 5 mg/ml* SPIRONOLACTONE 50 MG TABLET Take 1 tablet by mouth once d* BIOTIN 5,000 MCG DISINTEGRATI* Take 2 capsules by mouth once* #268-SIBG-SHRLV ACID* Take 1 tablet by mouth once d* MINOXIDIL 5 % TOPICAL SOLUTION Apply once daily to scalp CLOBETASOL 0.05 % SCALP SOLUT* Apply 8-10 drops daily to the*Problem List As Of Date: 06/08/2017(None)Letter TextDrMoira Ness [address] [phone] it May Concern:Shaneka Nugent is diagnosis with Alopecia areata. This is a conditionassociated with hair loss and baldness. Please allow Shaneka to wear a hatto cover her head to avoid embarrassment and being questioned from her schoolmates. The hat gives Shaneka self- confidence at school.Please call the office for any questions or concerns.Sincerely,Dr. Dhruv Yang Dhruv[address] [phone] 2016Whom it May Concern:Shaneka Nugent is diagnosis with Alopecia areata. This is a conditionassociated with hair loss and baldness. Please allow Shaneka to wear a hatto cover her head to avoid embarrassment and being questioned from her schoolmates. The hat gives Shaneka self- confidence at school.Please call the office for any questions or concerns.Sincerely,Electronic ally signedDhruv Dickerson MDEncounter Number: [id number] Status:Closed by RACHID ARGUELLO LPN on 06/12/17 [facility] CNOVon 05-27-2017 CNOV Office Visit (DERMIN) -SHANEKA NUGENT ([id number]) [facility] Vsyyojozsw89/22/17 1:00 PM NURSE DERM [facility] INDP DERMIN During your visit today, we recorded the following information about you:Rosa Fair LPN 06/17/2017 1:30 PM SignedKenalog given as prescribed. Dose count: 2 of 4Dose: 10mg/ml; Administered 5mg/ml to total 2 ml intralesional; Site: ScalpPatient tolerated wellRosa Fair LPNReferring Provider: DHRUV DICKERSON [[id number]]Allergies As of Date: 05/27/2017(No Known Allergies)Date Reviewed: 05/27/2017Reviewed by: Rosa Fair LPN - Fully AssessedPrimary Visit Diagnosis:Alopecia areata [L63.9]Prescriptions as of 05/27/2017 Sig: CHOLECALCIFEROL (VITAMIN D3) * Take 5,000 Units by mouth onc* TRIAMCINOLONE ACETONIDE 10 MG* Intralesional kenalog 5 mg/ml* SPIRONOLACTONE 50 MG TABLET Take 1 tablet by mouth once d* BIOTIN 5,000 MCG DISINTEGRATI* Take 2 capsules by mouth once* #[id number] ACID* Take 1 tablet by mouth once d* MINOXIDIL 5 % TOPICAL SOLUTION Apply once daily to scalp CLOBETASOL 0.05 % SCALP SOLUT* Apply 8-10 drops daily to the*Problem List As Of Date: 05/27/2017(None) Status:Closed by ROSA FAIR LPN on 06/17/17 [facility] Randa 05-22-2017 KATHY Telephone (DERMIN) -SHANEKA NUGENT ([id number]) 02 FDate Time Provider Qqwlfbmcsi17/17/17 DHRUV DICKERSON During your visit today, we recorded the following information about you:Maria De Jesus Johnston Psr 05/22/2017 2:33 PM SignedAppointment scheduled per below requestI spoke with Mother who agrees to an appointment on May 27 with the dermnurse for intralesional injections to the scalp at 1 pm.?Dr Dickerson patient.?Kashif Cruz RNFormerly [facility] Centerember 2016 2:16 PM?Rosa Fishers AIR CONTROL ELECTRONICS OPERATOR 05/22/2017 2:46 PM AddendumAllergies As of Date: 05/22/2017(No Known Allergies)Date Reviewed: 04/24/2017Reviewed by: Nora Gonzalez AIR CONTROL ELECTRONICS OPERATOR - Fully AssessedReason for Visit: intralesional kenalog [Other]Prescriptions as of 05/22/2017 Sig: CHOLECALCIFEROL (VITAMIN D3) * Take 5,000 Units by mouth onc* TRIAMCINOLONE ACETONIDE 10 MG* Intralesional kenalog 5 mg/ml* SPIRONOLACTONE 50 MG TABLET Take 1 tablet by mouth once d* BIOTIN 5,000 MCG DISINTEGRATI* Take 2 capsules by mouth once* #[id number] ACID* Take 1 tablet by mouth once d* MINOXIDIL 5 % TOPICAL SOLUTION Apply once daily to scalp CLOBETASOL 0.05 % SCALP SOLUT* Apply 8-10 drops daily to the*Problem List As Of Date: 05/22/2017(None) Status:Closed by KASHIF CRUZ RN on 05/26/17 Normal [facility] PROGRESSon 05-07-2017 PROGRESS HNO ID: [id number] thor: Arcelia Oliveros) NarasimhanService: (none)Author Type: PhysicianType: Progress NotesFiled: 05/07/2017 9:15 AMNote Text:[facility] SPRINGFIELDDivision of Pediatrics CLINIC NOTEPediatric and Adolescent EndocrinologyName: Shaneka LippertDate of Service: Apr 24, 2017Follow up for hair loss, PCOS.My final recommendations will be communicated back to the requestingphysician by way of shared Medical record or letter to requestingphysician via US mail.History of Present Illness :History Given By: Nico had the pleasure of seeing Shaneka, a 16 year old 10 month oldfemale, in our Pediatric Endocrinology Clinic for follow up. She was lastevaluated in December 2016.Growth charts, records and laboratory studies from [facility] labwere reviewed at this visit.Prior Hx: Shaneka is otherwise healthy female with hx of hairloss and breakage for the past two years now. Initially saw Jordyn Liu in September 2015, who diagnosed her with PCOS based on labs drawn inj2015. Treated with Metformin, Spironolactone and BCP. Pt followed upwith Endo there but not much effect from the meds. [facility] and injection starting today.Puberty: started breast development at 9-10 years of age, menarche at 12years of age. Periods have always been regular. Has no hx of facialhair/hair around the nipples.Weight: Has gained weight in the past two years. Has never seen adietician. Tries to get as much exercise as possible. 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 Being followed for alopecia areata. Prior labs were not c/wPCOS. She will meet with button spindler today. Continues on Spironolactone.Menses are regular. LMP 04/20/2017Had labs drawn recently.Shaneka denies headache, vision change, polyuria, polydipsia, nausea,vomiting, diarrhea, constipation, weakness, incoordination, swelling orredness of joints, change in skin or hair texture, heat or coldintolerance, change in pigmentation, or general appearance.Current Outpatient Prescriptions:cholecalciferol (VITAMIN D3) 5,000 unit tab Take 5,000 Units by mouth oncedaily. Disp: Rfl:spironolactone (ALDACTONE) 50 mg tablet Take 1 tablet by mouth once daily.Disp: 30 tablet Rfl: 5biotin 5,000 mcg ODT Take 2 capsules by mouth once daily. Disp: Rfl:PNV NO.115/IRON FUMARATE/FA ( #[id number] ACID ORAL) Take 1tablet by mouth once daily. Disp: Rfl:triamcinolone acetonide (KENALOG 10) 10 mg/mL injection Intralesionalkenalog 5 mg/ml up to 3 ml to areas of hair loss. May repeat every 4-6weeks. Disp: 3 mL Rfl: 4Minoxidil 5 % soln Apply once daily to scalp Disp: 1 Bottle Rfl: 2Clobetasol Propionate (TEMOVATE) 0.05 % external solution Apply 8-10 dropsdaily to the scalp Disp: 1 Bottle Rfl: 1No current facility-administered medications for this visit.No past medical history on file.No family history on file.Social History: Lives with momReview of [facility] CenterGENERAL: Negative for malaise, significant weight loss and feverNECK: Negative for lumps, goiter and painRESPIRATORY: Negative for cough, wheezing or shortness of breathCARDIOVASCULAR: Negative for chest pain and leg swellingGI: Negative for abdominal discomfort and change in bowel habitsGU: No history of dysuria or frequencyMUSCULOSKELETAL: Negative for joint pain or swellingSKIN: Negative for lesions and rashPSYCH: Negative for sleep disorder or mood disorderENDOCRINE: Negative for cold or heat intolerance, polyuria and polydipsiaPhysical ExaminationBP 100/60 Pulse 76 Ht 5' 2.047 (1.58m) Wt 182 lb 4.8 oz (82.7kg) LMP 04/20/2017 BMI 33.29 kg/(m2). Body surface area is 1.9 meterssquared.Last 2 Encounter Wt Readings: Date: Wt: 04/24/2017 82.7 kg (182 lb 4.8 oz) (97 %, Z= 1.95)* 01/02/2017 82.5 kg (181 lb 12.8 oz) (98 %, Z= 1.98)*General appearance: NAD, conversantEyes: anicteric sclerae, moist conjunctivae; no lid-lag; PERRLAHENT: Atraumatic; oropharynx clear with moist mucous membranes and nomucosal ulcerations; normal hard and soft palateNeck: Trachea midline; FROM, supple, no thyromegaly or lymphadenopathyLungs: CTA, with normal respiratory effort and no intercostal retractionsCV: RRR, no MRGsAbdomen: Soft, non-tender; no masses or HSMExtremities: No peripheral edema or extremity lymphadenopathySkin: Normal temperature, turgor and texture; no rash, alopecia notedPsych: Appropriate affect, alert and oriented to person, place and timePubertal Status:Pubic Hair- Dagoberto 5Axillary Hair: fully establishedAcne: noneGU: Normal female, dagoberto 5Laboratory Data 07/18/2015 at [facility]:Free T4: 1.08 ng/dl; TSH 3.53 uIU/mlFSH: 2.9 mIU/ml; LH 13.7 mIU/mlTestosterone 24 ng/dl; Free Testosterone 3.1 pg/mlLABS DONE [facility]ucose 98 mg/dlInsulin 27.7 uIU/mlLH 3.16 mIU/ml; FSH 2.1 mIU/mlTestosterone 38 ng/dlFree Testosterone 9.9 pg/ml; % Free Testosterone 2.6 %TSH 0.73 uIU/ml; Free T4 1.18 ng/xvVbR6D 4.8%LDL 116 mg/dlHDL 36 mg/dlImaging: n/aImpression: Shaneka is a 16 year 10 month old female with hx of hairloss, obesity. Hair loss most likely d/t alopecia areata. Labs are not c/wPCOS.Labs drawn prior to starting combination estrogen/progestin pills showNORMAL testosterone, elevated LH: FSH ratio. Her menses were regular andshe did not have significant acne/ hirsuitism.Labs done recently (04/20/2017) off BCPs reviewed with patient and parent.Not C/W PCOS.Discussed weight gain and the relationship between obesity, Insulinresistance and PCOS.Recc continue dietary and lifestyle changes to control weight.I would like to see Shaneka again in endocrine clinic in about 6 months- 1year.Thank you for the opportunity to participate in Shaneka's care. Pleasedon't hesitate to call with any questions or concerns.Sincerely,Arcelia Fletcher M.D.Pediatric and Adolescent EndocrinologyCC:Walker Avalos MD[address] [facility] [phone] The Parents of:Shaneka Hanleypert[address] [facility] [address] [facility] CNOVon 04-24-2017 CNOV Office Visit (DERMMN) -JOVANNASHANEKA ALBERTS ([id number]) 02 FDate Time Provider Uyuxlndjys97/20/17 1:20 PM CARLOS OCHOA During your visit today, we recorded the following information about you:Carlos Ochoa DO 04/25/2017 7:58 AM SignedHPI:Shaneka Nugent is a 16 year old year old female who presents today withMother.Patient presents with:Hair LossParent and/or pt feel pt has initially improved but past two week has becomeworse.All medications used for this condition: Rogaine , Biotin, Clobetasol, ILKinjectionHow long does it take for you to go through a tube? Still using originalprescriptionBath/Show er: Treseme soap: none moisturizer: Every day times per week.Location: scalpDuration: 2 yearsSeverity:10 being the worst:9/10 as reported by: momAssociated Symptoms:tendernessGoals for this appointment : Would like to pursue scalp injections-Patient returns for follow up of hair loss-Reports that the clobetasol and minoxidil hurt her scalp-ILK injections have helped significantly in the pastThere were no vitals taken for this visit.No prescriptions on file.Allergies:Review of patient's allergies indicates no known allergies.Past Medical History:No past medical history on file.No past surgical history on file.Review of Systems:GENERAL: No fevers or irritability.Normal sleep, appetite and activitySKIN: See HPIPhysical Examination:General appearance: well appearing, alert, in no acute distressMood/Affect:PleasantS calp: Over the frontal hairline, vertex and crown is a patch of diffusealopecia with hairs of several different lengths withinFace/Head: clearEyes: clearOral: clearEncounter Diagnosis ICD-10-CM1. 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 Dickerson in 3-4 months or sooner if any concernsHernan Daniel MDOctober 2016DERMATOLOGY STAFF NOTEI have seen and examined this patient. I have discussed the case and themanagement of this patient's care with the Resident, family and/or patient.I also have reviewed and agree with the assessment and plan as stated aboveandagree with all of its relevant components. The resident's note was annotated byme as needed to reflect my direct input .15 minutes in this visit, with more than 50% of the time devoted to patientcounseling.Hyacinth Harding MD 04/24/2017 2:17 PM SignedAssessment/Plan:(1) Alopecia- Intralesional kenalog injections in the office today- [facility] may be an option for you to follow with closer to homefor injections every 4-6 weeks- Follow up with Dr. Dickerson in 3-4 months or sooner if any concernsHernan Daniel MDApril 24, 2017Carlos Ochoa DO 04/25/2017 7:58 AM SignedNURSING CLINIC VISIT / HAIR LOSSVisit #: 1 of 4 PAIN ASSESSMENT:Is the patient having any pain? No 0 on a scale of 0 to 10 Vital Signs: LMP 04/20/2017S: Patient Responding fair to treatment. Some new areas of involvement notedby patient.As per patient, Responding fair to treatment. No new areas noted in any scalp.Response to previous injected areas noted as fair. Atrophy Not noted inpreviously treated scalp.New Stresses noted: No.Procedure:No applied topically prior to injections.ILK 5mg/cc injected to site(s): Total of 2cc's injected.Total injections: ANDlt;/= 7.Patient tolerated the procedure well. No complaints offered. All questions wereanswered.Plan: To return to clinic in 4-6 weeks with nurse for injectionsRosa Fair LPNReferring Provider: SELF [[id number]]Allergies As of Date: 04/24/2017(No Known Allergies)Date Reviewed: 04/24/2017Reviewed by: Nora Gonzalez LPN - Fully AssessedReason for Visit: Hair Loss [933]Visit Diagnosis:Alopecia areata [L63.9]Order(s):triamcinolone acetonide (KENALOG 10) 10 mg/mL injectionIntralesional kenalog 5 mg/ml up to 3 ml to areas of hair loss. May repeat every 4-6 weeks.Disp: 3 mLRfl: 4Prescriptions as of 04/24/2017 Sig: CHOLECALCIFEROL (VITAMIN D3) * Take 5,000 Units by mouth onc* SPIRONOLACTONE 50 MG TABLET Take 1 tablet by mouth once d* BIOTIN 5,000 MCG DISINTEGRATI* Take 2 capsules by mouth once* #284-[id number] ACID* Take 1 tablet by mouth once d* MINOXIDIL 5 % TOPICAL SOLUTION Apply once daily to scalp CLOBETASOL 0.05 % SCALP SOLUT* Apply 8-10 drops daily to the* TRIAMCINOLONE ACETONIDE 10 MG* Intralesional kenalog 5 mg/ml*Medication notes this encounter TRIAMCINOLONE ACETONIDE 10 MG/ML SUSPENSION FOR INJECTION >> Rosa Fair LPN 04/24/2017 2:46 PM >> ROSA FAIR LPN Fri Apr 24, 2017 2:46 PM Kenalog given as prescribed. Dose count: Single dose Dose: 10mg/ml; Administered intralesional; Site: Scalp Patient tolerated wellProblem List As Of Date: 04/24/2017(None) Other instructions from your clinician: Assessment/Plan: (1) Alopecia - Intralesional kenalog injections in the office today - [facility] may be an option for you to follow with closer to home for injections every 4-6 weeks - Follow up with Dr. Dickerson in 3-4 months or sooner if any concerns Hernan Daniel MD April 24, 2017Prescriptions ordered this encounter Disp Refills Start End TRIAMCINOLONE ACETONIDE 10 MG/ML DIEGO* 3 mL 2 04/24/2017 04/24/2017 Class: In Office Sig: Intralesional kenalog 5 mg/ml up to 3 ml to areas of hair loss. TRIAMCINOLONE ACETONIDE 10 MG/ML DIEGO* 3 mL 4 04/24/2017 Sig: Intralesional kenalog 5 mg/ml up to 3 ml to areas of hair loss. May repeat every 4-6 weeks.Medications Discontinued During This Encounter triamcinolone acetonide (KENALOG 10)* 3 mL 2 04/24/2017 04/24/2017 Class: In Office Sig: Intralesional kenalog 5 mg/ml up to 3 ml to areas of hair loss. Disc: Reason for discontinue is not on file.Disposition: Return in about 3 months (around 07/25/2017).Follow-up and Disposition History RecordedEncounter Number: [id number] Status:Closed by CARLOS OCHOA DO on 04/25/17 Normal [facility] CNOV Office Visit (PENDMN) -JOVANNASHANEKA ALBERTS Teressa ([id number]) 02 FDate Time Provider Dzjaumsxvt06/20/17 1:00 PM ARCELIA FLETCHER) PENDMN During your visit today, we recorded the following information about you: Pulse Blood pressure Weight Height 76/minute 100/60 82.7 kg 1.576 m Last Period 04/20/17Sushaun Fletcher MD 05/07/2017 9:15 AM SignedTHE [facility]ALTH SPRINGFIELDDivision of Pediatrics CLINIC NOTEPediatric and Adolescent EndocrinologyName: Shaneka DayanpertDate of Service: Apr 24, 2017Follow up for hair loss, PCOS.My final recommendations will be communicated back to the requesting physicianby way of shared Medical record or letter to requesting physician via [place] mail.History of Present Illness :History Given By: Nico had the pleasure of seeing Shaneka, a 16 year old 10 month old female,in our Pediatric Endocrinology Clinic for follow up. She was last evaluated inJ2016.Growth charts, records and laboratory studies from [facility] lab werereviewed at this visit.Prior Hx: Shaneka is otherwise healthy female with hx of hair lossand breakage for the past two years now. Initially saw Jordyn Barrios at [facility] inSeptember 2015, who diagnosed her with PCOS based on labs drawn in jul 2015.Treated with Metformin, Spironolactone and BCP. Pt followed up with Sophie therebut not much effect from the meds. Started seeing Derm at [facility], who recc topicalcreams and injection starting today.Puberty: started breast development at 9-10 years of age, menarche at 12 yearsof age. Periods have always been regular. Has no hx of facial hair/hair aroundthe nipples.Weight: Has gained weight in the past two years. Has never seen a button spindler.Tries to get as much exercise as possible. Is in [place] a week and plans [employer] starting end of January.Since last visit, she has met with dermatology and received scalp injections.Being followed for alopecia areata. Prior labs were not c/w PCOS. She will meetwith button spindler today. Continues on Spironolactone.Menses are regular. LMP 04/20/2017Had labs drawn recently.Shaneka denies headache, vision change, polyuria, polydipsia, nausea, vomiting,diarrhea, constipation, weakness, incoordination, swelling or redness ofjoints, change in skin or hair texture, heat or cold intolerance, change inpigmentation, or general appearance.Current Outpatient Prescriptions:cholecalciferol (VITAMIN D3) 5,000 unit tab Take 5,000 Units by mouth oncedaily. Disp: Rfl:spironolactone (ALDACTONE) 50 mg tablet Take 1 tablet by mouth once daily.Disp: 30 tablet Rfl: 5biotin 5,000 mcg ODT Take 2 capsules by mouth once daily. Disp: Rfl:PNV NO.115/IRON FUMARATE/FA ( #355-[id number] ACID ORAL) Take 1 tabletby mouth once daily. Disp: Rfl:triamcinolone acetonide (KENALOG 10) 10 mg/mL injection Intralesional kenalog 5mg/ml up to 3 ml to areas of hair loss. May repeat every 4-6 weeks. Disp: 3 mLRfl: 4Minoxidil 5 % soln Apply once daily to scalp Disp: 1 Bottle Rfl: 2Clobetasol Propionate (TEMOVATE) 0.05 % external solution Apply 8-10 dropsdaily to the scalp Disp: 1 Bottle Rfl: 1No current facility-administered medications for this visit.No past medical history on file.No family history on file.Social History: Lives with momReview of SystemsGENERAL: Negative for malaise, significant weight loss and feverNECK: Negative for lumps, goiter and painRESPIRATORY: Negative for cough, wheezing or shortness of breathCARDIOVASCULAR: Negative for chest pain and leg swellingGI: Negative for abdominal discomfort and change in bowel habitsGU: No history of dysuria or frequencyMUSCULOSKELETAL: Negative for joint pain or swellingSKIN: Negative for lesions and rashPSYCH: Negative for sleep disorder or mood disorderENDOCRINE: Negative for cold or heat intolerance, polyuria and polydipsiaPhysical ExaminationBP 100/60 Pulse 76 Ht 5' 2.047ANDquot; (1.58m) Wt 182 lb 4.8 oz (82.7kg) LMP 04/20/2017 BMI 33.29 kg/(m2). Body surface area is 1.9 meters squared.Last 2 Encounter Wt Readings: Date: Wt: 04/24/2017 82.7 kg (182 lb 4.8 oz) (97 %, Z= 1.95)* 01/02/2017 82.5 kg (181 lb 12.8 oz) (98 %, Z= 1.98)*General appearance: NAD, conversantEyes: anicteric sclerae, moist conjunctivae; no lid-lag; PERRLAHENT: Atraumatic; oropharynx clear with moist mucous membranes and no mucosalulcerations; normal hard and soft palateNeck: Trachea midline; FROM, supple, no thyromegaly or lymphadenopathyLungs: CTA, with normal respiratory effort and no intercostal retractionsCV: RRR, no MRGsAbdomen: Soft, non-tender; no masses or HSMExtremities: No peripheral edema or extremity lymphadenopathySkin: Normal temperature, turgor and texture; no rash, alopecia notedPsych: Appropriate affect, alert and oriented to person, place and timePubertal Status:Pubic Hair- Dagoberto 5Axillary Hair: fully establishedAcne: noneGU: Normal female, dagoberto 5Laboratory Data 07/18/2015 at [facility]:Free T4: 1.08 ng/dl; TSH 3.53 uIU/mlFSH: 2.9 mIU/ml; LH 13.7 mIU/mlTestosterone 24 ng/dl; Free Testosterone 3.1 pg/mlLABS DONE [facility]2017 [facility]Glucose 98 mg/dlInsulin 27.7 uIU/mlLH 3.16 mIU/ml; FSH 2.1 mIU/mlTestosterone 38 ng/dlFree Testosterone 9.9 pg/ml; % Free Testosterone 2.6 %TSH 0.73 uIU/ml; Free T4 1.18 ng/qwQgW5A 4.8%LDL 116 mg/dlHDL 36 mg/dlImaging: n/aImpression: Shaneka is a 16 year 10 month old female with hx of hair loss,obesity. Hair loss most likely d/t alopecia areata. Labs are not c/w PCOS.Labs drawn prior to starting combination estrogen/progestin pills show NORMALtestosterone, elevated LH: FSH ratio. Her menses were regular and she did nothave significant acne/ hirsuitism.Labs done recently (04/20/2017) off BCPs reviewed with patient and parent. NotC/W PCOS.Discussed weight gain and the relationship between obesity, Insulin resistanceand PCOS.Recc continue dietary and lifestyle changes to control weight.I would like to see Shaneka again in endocrine clinic in about 6 months- 1year.Thank you for the opportunity to participate in Shaneka's care. Please don'thesitate to call with any questions or concerns.Sincerely,Arcelia Fletcher M.D.Pediatric and Adolescent EndocrinologyCC:Walker Avalos MD[address] [facility] [phone] The Parents of:Shaneka Gannon Mgxlkwh[address] [facility] [place] [address]Ucxkaltoo Provider: ARCELIA FLETCHER) [[id number]]Allergies As of Date: 04/24/2017(No Known Allergies)Date Reviewed: 04/24/2017Reviewed by: Nora Gonzalez LPN - Fully AssessedReason for Visit: Follow Up [171]Primary Visit Diagnosis:Weight gain, abnormal [R63.5]Prescriptions as of 04/24/2017 Sig: CHOLECALCIFEROL (VITAMIN D3) * Take 5,000 Units by mouth onc* SPIRONOLACTONE 50 MG TABLET Take 1 tablet by mouth once d* BIOTIN 5,000 MCG DISINTEGRATI* Take 2 capsules by mouth once* #536-[id number] ACID* Take 1 tablet by mouth once d* MINOXIDIL 5 % TOPICAL SOLUTION Apply once daily to scalp CLOBETASOL 0.05 % SCALP SOLUT* Apply 8-10 drops daily to the*Medication notes this encounter MINOXIDIL 5 % TOPICAL SOLUTION >> Stacia Arita LPN, LPN 04/24/2017 11:27 AM >> STACIA ARITA ThuApr 24, 2017 11:27 AM rarely CLOBETASOL 0.05 % SCALP SOLUTION >> Stacia Arita LPN, LPN 04/24/2017 11:26 AM >> STACIA ARITA ThuApr 24, 2017 11:26 AM uses once in a whileProblem List As Of Date: 04/24/2017(None)Medications Discontinued During This Encounter cyanocobalamin (VITAMIN B-12) 500 mc* 04/24/2017 Class: Historical Med Route: ORAL Sig: Take 1 tablet by mouth once daily. Disc: Discontinued by Patient metFORMIN (GLUCOPHAGE) 500 mg tablet 04/24/2017 Class: Historical Med Route: ORAL Sig: Take 500 mg by mouth once daily. Disc: Discontinued by another Health Care Provider norgestimate 0.25 mg-ethinyl estradi* 04/24/2017 Class: Historical Med Route: ORAL Sig: Take 1 tablet by mouth once daily. Disc: Discontinued by another Health Care Provider triamcinolone acetonide (KENALOG 10)* 3 mL 2 01/02/2017 04/24/2017 Class: In Office Sig: Intralesional kenalog 5 mg/ml up to 3 ml to areas of hair loss. Disc: Course of therapy completed cholecalciferol (VITAMIN D) 1,000 un* 04/24/2017 Class: Historical Med Route: ORAL Sig: Take 2,000 Units by mouth once daily. Disc: Dosage adjustmentEncounter Number: [id number] Status:Closed by ARCELIA FLETCHER MD on 05/07/17 Normal [facility] CNOV Office Visit (PEDNTR) -SHANEKA NUGENT ([id number]) 02 FDate Time Provider Alpfajlbrp41/20/17 11:30 AM INLAYER A120 PEDS MAIN PEDNTR During your visit today, we recorded the following information about you: Weight Height 82.7 kg 1.576 Arianna Willoughby, RD 04/28/2017 12:56 PM Signed[facility] Children'sPediatric Nutrition Support TeamProgress NotePatient Name: Shaneka NugentMRN: [id number] Care Physician: MEGAN Chaseate of : 2000 Age: [age] year old Sex: femaleNutrition Progress: Weight has increased 0.6 lbs over the past 9.75 months,which fails to meet goal of weight loss. BMI/age continues to be ANDgt;95th%ile,indicating obesity.Nutrition update: Patient presents to visit with mother - mom reports trying tomake new things (spaghetti squash; heavy veg dishes), however Shaneka hasn'tbeen very agreeable with trying these new things. She is picking the salad barmore at school, otherwise there is no vegetable she will consistently eat.Previous Recommendations:1. Recommend a total overall daily intake of 6-8 servings grains with at leasthalf being whole, 2.5-3 servings vegetables, 1.5-2 servings fruits, 5 servingslean meats/proteins, 3 servings non fat dairy not met2. ANDquot;Healthy plateANDquot; at meals - 1/2 plate vegetables, 1/4 plate leanprotein, 1/4 plate whole grains partially met- decreasing starches some, but noveggies3. Recommend the following adjustments to meals: Breakfast -1 bowl of cereal (try cheerios, mini wheats,rice krispies, special K), then add a protein (hard boiled egg, meat roll ups,string cheese, small handful nuts or small spoon peanut butter) No sugar on cereal! Switch toStevia, but even wean off of this Lunch - swap out chips for veggies and fruit; add 1 cuppopcorn (Skinny pop or light butter) Dinner - reduce grains, always have handful of proteinand all the veggies you want.4. Avoid all beverages with sugar. Water is the best choice or low fat [place]k partially met - drinking chocolate milk5. Exercise: add 30 minutes of walking, baton twirling, dancing, etc most daysof the week mostly met?Exercise: walking home from school 3-4 x/week, 40 minute walk; majorettepracticeNutrition Diagnosis: Overweight/Obesity related to physical inactivity andexcessive energy intake as evidenced by BMI above normative standards for ageNutritional Intervention:1. Reinforced previous recommendations2. Goal to have a minimum of 1 vegetable each day + 1 fruit each day3. Continue the exercise - at least 30-60 minutes of walking each dayNutrition Monitoring and Evaluation: weight loss 0.5 lb/week; adherence tonutrition related recommendations;Criteria: labs/vitals; patient and parent report; Estimated needs:19 kcal/kg EER and obesity coefficients0.85 g pro/kg DRIMaintenance fluids: 2750 ml/day?Weight Status: 82.691 kgPrevious weight: 82.4 kg (01/02/17)Allergies: NKFAPain:Is the patient having any pain that is interfering with oral/enteral intake: NoTime: [address], CSP, LDPager: [id number] 201611:[address] 04/24/2017 12:05 PM AddendumHave a vegetable at both lunch and dinner each day. Veggies any time of the day!Try to have one fruit each day.?Breakfast -1 bowl of cereal (try cheerios, mini wheats, rice krispies, specialK), then add a protein (hard boiled egg, meat roll ups, string cheese, smallhandful nuts or small spoon peanut butter) No sugar on cereal! Switch to Stevia, but even wean offof this? Apple with a string cheese PB sandwich - make the night before?Dinner - reduce grains, always have handful of protein and all the veggies youwant.??Continue mostly sugar free drinks! Water is the best choice.?Healthy Snack Options:Veggies (cucumber, peppers, celery) and ranch dip yogurtPlain ecuadorean yogurt Add PB and 1/2 TBSP chocolate chips Vanilla extract + a few berriesDeli meat roll-ups with 1 piece cheeseGranola bars: look for less than 10 gm of sugarEdamameHummus + veggies or pretzels, crackers3 cups air popped popcornApple with 1 scoop of PBContinue the exercise - at least 30-60 minutes of walking each dayCheri Willoughby RD, CSP, [phone] Provider: ARCELIA FLETCHER) [[id number]]Allergies As of Date: 04/24/2017(No Known Allergies)Date Reviewed: 04/24/2017Reviewed by: Nora Gonzalez AIR CONTROL ELECTRONICS OPERATOR - Fully AssessedReason for Visit: Reassessment [674]Primary Visit Diagnosis:Symptoms concerning nutrition, metabolism, and development [R63.8] Other Visit Diagnoses:Body mass index, pediatric, greater than or equal to 95th percentile for age [Z68.54] Dietary counseling and surveillance [Z71.3]Prescriptions as of 04/24/2017 Sig: SPIRONOLACTONE 50 MG TABLET Take 1 tablet by mouth once d* BIOTIN 5,000 MCG DISINTEGRATI* Take 2 capsules by mouth once* #[id number] ACID* Take 1 tablet by mouth once d* MINOXIDIL 5 % TOPICAL SOLUTION Apply once daily to scalp CLOBETASOL 0.05 % SCALP SOLUT* Apply 8-10 drops daily to the*Problem List As Of Date: 04/24/2017(None) Other instructions from your clinician: Have a vegetable at both lunch and dinner each day. Veggies any time of the day! Try to have one fruit each day. ? Breakfast -1 bowl of cereal (try cheerios, mini wheats, rice krispies, special K), then add a protein (hard boiled egg, meat roll ups, string cheese, small handful nuts or small spoon peanut butter) No sugar on cereal! Switch to Stevia, but even wean off of this ? Apple with a string cheese PB sandwich - make the night before ? Dinner - reduce grains, always have handful of protein and all the veggies you want. ?? Continue mostly sugar free drinks! Water is the best choice. ? Healthy Snack Options: Veggies (cucumber, peppers, celery) and ranch dip yogurt Plain ecuadorean yogurt Add PB and 1/2 TBSP chocolate chips Vanilla extract + a few berries Deli meat roll-ups with 1 piece cheese Granola bars: look for less than 10 gm of sugar Edamame Hummus + veggies or pretzels, crackers 3 cups air popped popcorn Apple with 1 scoop of PB Continue the exercise - at least 30-60 minutes of walking each day Cheri Willoughby RD, [facility], [place] [phone] Number: [id number] Status:Closed by CHERI WILLOUGHBY on 04/28/17 [facility] PROGRESSon 04-24-2017 PROGRESS HNO ID: [id number] thor: Carlos Kitchenrvice: (none)Author Type: PhysicianType: Progress NotesFiled: 04/25/2017 7:58 AMNote Text:NURSING CLINIC VISIT / HAIR LOSSVisit #: 1 of 4 PAIN ASSESSMENT:Is the patient having any pain? No 0 on a scale of 0 to 10 Vital Signs: LMP 10/16/2017S: Patient Responding fair to treatment. Some new areas of involvementnoted by patient.As per patient, Responding fair to treatment. No new areas noted in anyscalp. Response to previous injected areas noted as fair. Atrophy Notnoted in previously treated scalp.New Stresses noted: No.Procedure:No applied topically prior to injections.ILK 5mg/cc injected to site(s): Total of 2cc's injected.Total injections: [facility] PROGRESS HNO ID: [id number] thor: Carlos Kitchenrvice: (none)Author Type: PhysicianType: Progress NotesFiled: 04/25/2017 7:58 AMNote Text:HPI:Shaneka Nugent is a 16 year old year old female who presents today withMother.Patient presents with:Hair LossParent and/or pt feel pt has initially improved but past two week hasbecome worse.All medications used for this condition: Rogaine , Biotin, Clobetasol, ILKinjectionHow long does it take for you to go through a tube? Still using originalprescriptionBath/Show er: Treseme soap: none moisturizer: Every day times per week.Location: scalpDuration: 2 yearsSeverity:10 being the worst:9/10 as reported by: momAssociated Symptoms:tendernessGoals for this appointment : Would like to pursue scalp injections-Patient returns for follow up of hair loss-Reports that the clobetasol and minoxidil hurt her scalp-ILK injections have helped significantly in the pastThere were no vitals taken for this visit.No prescriptions on file.Allergies:Review of patient's allergies indicates no known allergies.Past Medical History:No past medical history on file.No past surgical history on file.Review of Systems:GENERAL: No fevers or irritability.Normal sleep, appetite and activitySKIN: See HPIPhysical Examination:General appearance: well appearing, alert, in no acute distressMood/Affect:PleasantS calp: Over the frontal hairline, vertex and crown is a patch of diffusealopecia with hairs of several different lengths withinFace/Head: clearEyes: clearOral: clearEncounter Diagnosis ICD-10-CM1. 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 Dickerson in 3-4 months or sooner if any concernsHernan Daniel MDOctober 2016DERMATOLOGY STAFF NOTEI have seen and examined this patient. I have discussed the case and themanagement of this patient's care with the Resident, family and/orpatient.I also have reviewed and agree with the assessment and plan as statedaboveand agree with all of its relevant components. The resident's notewas annotated by me as needed to reflect my direct input .15 minutes in this visit, with more than 50% of the time devoted topatient counseling.Carlos Ochoa, DO Normal [facility] PROGRESS HNO ID: [id number] thor: Cheri (Joseph) aJmes: (none)Author Type: Registered DietitianType: Progress NotesFiled: 04/28/2017 12:56 PMNote Text:[facility] Children'sPediatric Nutrition Support TeamProgress NotePatient Name: Shaneka Gannon JovannaMRN: [id number] Care Physician: Walker Avalos MDDate of : 2000 Age: [age] year old Sex: femaleNutrition Progress: Weight has increased 0.6 lbs over the past 9.75months, which fails to meet goal of weight loss. BMI/age continues to be>95th%ile, indicating obesity.Nutrition update: Patient presents to visit with mother - mom reportstrying to make new things (spaghetti squash; heavy veg dishes), howeverMadison hasn't been very agreeable with trying these new things. She ispicking the salad bar more at school, otherwise there is no vegetable shewill consistently eat.Previous Recommendations:1. Recommend a total overall daily intake of 6-8 servings grains with atleast half being whole, 2.5-3 servings vegetables, 1.5-2 servings fruits,5 servings lean meats/proteins, 3 servings non fat dairy not met2. Healthy plate at meals - 1/2 plate vegetables, 1/4 plate leanprotein, 1/4 plate whole grains partially met- decreasing starches some,but no veggies3. Recommend the following adjustments to meals: Breakfast -1 bowl of cereal (try cheerios, miniwheats, rice krispies, special K), then add a protein (hard boiled egg,meat roll ups, string cheese, small handful nuts or small spoon peanutbutter) No sugar on cereal! Switch toStevia, but even wean off of this Lunch - swap out chips for veggies and fruit; add 1cup popcorn (Skinny pop or light butter) Dinner - reduce grains, always have handful ofprotein and all the veggies you want.4. Avoid all beverages with sugar. Water is the best choice or low fatwhite milk partially met - drinking chocolate milk5. Exercise: add 30 minutes of walking, baton twirling, dancing, etc mostdays of the week mostly met?Exercise: walking home from school 3-4 x/week, 40 minute walk; majorettepracticeNutrition Diagnosis: Overweight/Obesity related to physical inactivityand excessive energy intake as evidenced by BMI above normative standardsfor ageNutritional Intervention:1. Reinforced previous recommendations2. Goal to have a minimum of 1 vegetable each day + 1 fruit each day3. Continue the exercise - at least 30-60 minutes of walking each dayNutrition Monitoring and Evaluation: weight loss 0.5 lb/week; adherence tonutrition related recommendations;Criteria: labs/vitals; patient and parent report; Estimated needs:19 kcal/kg EER and obesity coefficients0.85 g pro/kg DRIMaintenance fluids: 2750 ml/day?Weight Status: 82.691 kgPrevious weight: 82.4 kg (01/02/17)Allergies: NKFAPain:Is the patient having any pain that is interfering with oral/enteralintake: NoTime: 15 minutesJennifer JOSEPH Willoughby, CSP, LDPager: [phone] 201611:53 AM Normal [facility] CNOVon 02-25-2017 CNOV Office Visit (DERMMN) -SHANEKA NUGENT ([id number]) 02 FDate Time Provider Department02/25/17 2:00 PM NURSE CLINICAL DERMMN During your visit today, we recorded the following information about you:Blane Ayala LPN, CONSTANCE 02/25/2017 2:29 PM SignedNURSING CLINIC VISIT / HAIR LOSSVisit #: 09/05 PAIN ASSESSMENT:Is the patient having any pain? No 0 on a scale of 0 to 10 Vital Signs: There were no vitals taken for this visit.S: Patient Responding fair to treatment. No new areas of involvement noted bypatient.O-As per patient, Responding fair to treatment. No new areas noted in any scalp.Response to previous injected areas noted as fair. Atrophy Not noted inpreviously treated scalp.New Stresses noted: No.Procedure:none applied topically prior to injections.ILK 5mg/cc injected to site(s): Total of 3.0cc's injected.Total injections: ANDgt;7.Patient tolerated the procedure well. No complaints offered. All questions wereanswered.Plan: To return to clinic to see physician for follow GENE Rowleyeferring Provider: SELF [200]Allergies As of Date: 02/25/2017(No Known Allergies)Date Reviewed: 02/25/2017Reviewed by: Blane Telles) CONSTANCE Ayala - Fully AssessedReason for Visit: Injection (Intralesional) [1129]Primary Visit Diagnosis:Alopecia areata [L63.9]Prescriptions as of 02/25/2017 Sig: TRIAMCINOLONE ACETONIDE 10 MG* Intralesional kenalog 5 mg/ml* BIOTIN 5,000 MCG DISINTEGRATI* Take 2 capsules by mouth once* NORGESTIMATE 0.25 MG-ETHINYL * Take 1 tablet by mouth once d* METFORMIN 500 MG TABLET Take 500 mg by mouth once eugenia* SPIRONOLACTONE 50 MG TABLET Take 50 mg by mouth once sabra* CHOLECALCIFEROL (VITAMIN D3) * Take 2,000 Units by mouth onc* CYANOCOBALAMIN (VIT B-12) 500* Take 1 tablet by mouth once d* #[id number] ACID* Take 1 tablet by mouth once d* MINOXIDIL 5 % TOPICAL SOLUTION Apply once daily to scalp CLOBETASOL 0.05 % SCALP SOLUT* Apply 8-10 drops daily to the*Medication notes this encounter TRIAMCINOLONE ACETONIDE 10 MG/ML SUSPENSION FOR INJECTION >> Blane Ayala LPN, LPN 02/25/2017 2:27 PM >> BLANE AYALA ThuFeb 25, 2017 2:27 PM Kenalog 5mg/cc given as prescribed. Dose count: 3 of 3 Dose: 3.0cc; Administered intralesional; Site: Scalp Patient tolerated wellProblem List As Of Date: 02/25/2017(None) Status:Closed by BLANE AYALA on 02/25/17 [facility] PROGRESSon 02-25-2017 PROGRESS HNO ID: [id number] thor: Blane (Constance) GUY Ayalaervice: (none)Author Type: LICENSED NURSEType: Progress NotesFiled: 02/25/2017 2:29 PMNote Text:NURSING CLINIC VISIT / HAIR LOSSVisit #: 09/05 PAIN ASSESSMENT:Is the patient having any pain? No 0 on a scale of 0 to 10 Vital Signs: There were no vitals taken for this visit.S: Patient Responding fair to treatment. No new areas of involvement notedby patient.O-As per patient, Responding fair to treatment. No new areas noted in anyscalp. Response to previous injected areas noted as fair. Atrophy Notnoted in previously treated scalp.New Stresses noted: No.Procedure:none applied topically prior to injections.ILK 5mg/cc injected to site(s): Total of 3.0cc's injected.Total injections: >7.Patient tolerated the procedure well. No complaints offered. All questionswere answered.Plan: To return to clinic to see physician for follow Leeann Ayala LPN [facility] Dru 01-28-2017 CELIA Office Visit (DERMMN) -SHANEKA NUGENT ([id number]) 02 FDate Time Provider Department01/28/17 2:00 PM NURSE CLINICAL DERMMN During your visit today, we recorded the following information about you:Nati Uribe LPN 01/28/2017 2:29 PM SignedNURSING CLINIC VISIT / HAIR LOSSVisit #: 1 of 3 PAIN ASSESSMENT:Is the patient having any pain? No 0 on a scale of 0 to 10 Vital Signs: LMP 01/01/2017S: Patient Responding well to treatment. No new areas of involvement noted bypatient.O-As per patient, Responding well to treatment. No new areas noted in scalp.Response to previous injected areas noted as good. Atrophy Not noted inpreviously treated scalp.New Stresses noted: No.Procedure:Nothing applied topically prior to injections.ILK 5mg/cc injected to site(s): Total of 3.0cc's injected.Total injections: ANDgt;7.Patient tolerated the procedure well. No complaints offered. All questions wereanswered.Plan: To return to clinic in 4-6 weeks with nurse for injectionsChanabell Uribe LPNReferring Provider: SELF [200]Allergies As of Date: 01/28/2017(No Known Allergies)Date Reviewed: 01/28/2017Reviewed by: Nati Uribe LPN - Fully AssessedReason for Visit: Hair Loss [933]Primary Visit Diagnosis:Alopecia areata [L63.9]Prescriptions as of 01/28/2017 Sig: TRIAMCINOLONE ACETONIDE 10 MG* Intralesional kenalog 5 mg/ml* BIOTIN 5,000 MCG DISINTEGRATI* Take 2 capsules by mouth once* SPIRONOLACTONE 50 MG TABLET Take 50 mg by mouth once sabra* CHOLECALCIFEROL (VITAMIN D3) * Take 2,000 Units by mouth onc* CYANOCOBALAMIN (VIT B-12) 500* Take 1 tablet by mouth once d* #[id number] ACID* Take 1 tablet by mouth once d* MINOXIDIL 5 % TOPICAL SOLUTION Apply once daily to scalp CLOBETASOL 0.05 % SCALP SOLUT* Apply 8-10 drops daily to the* NORGESTIMATE 0.25 MG-ETHINYL * Take 1 tablet by mouth once d* METFORMIN 500 MG TABLET Take 500 mg by mouth once eugenia*Medication notes this encounter TRIAMCINOLONE ACETONIDE 10 MG/ML SUSPENSION FOR INJECTION >> Nati Uribe LPN 01/28/2017 2:27 PM >> NATI URIBE LPN ThuJan 28, 2017 2:27 PM Kenalog given as prescribed. Dose count: 1 of 3 Dose: 5mg/ml a total of 3.0cc's; Administered intralesional; Site: Scalp Patient tolerated well NORGESTIMATE 0.25 MG-ETHINYL ESTRADIOL 35 MCG TABLET >> Nati Uribe LPN 01/28/2017 2:10 PM >> NATI URIBE LPN ThuJan 28, 2017 2:10 PM not using METFORMIN 500 MG TABLET >> Nati Uribe LPN 01/28/2017 2:10 PM >> NATI URIBE LPN ThuJan 28, 2017 2:10 PM stoppedProblem List As Of Date: 01/28/2017(None) Status:Closed by NATI URIBE LPN on 01/28/17 [facility] PROGRESSon 01-28-2017 PROGRESS HNO ID: [id number] thor: Nati TOVARervice: (none)Author Type: (none)Type: Progress NotesFiled: 01/28/2017 2:29 PMNote Text:NURSING CLINIC VISIT / HAIR LOSSVisit #: 1 of 3 PAIN ASSESSMENT:Is the patient having any pain? No 0 on a scale of 0 to 10 Vital Signs: LMP 01/01/2017S: Patient Responding well to treatment. No new areas of involvement notedby patient.O-As per patient, Responding well to treatment. No new areas noted inscalp. Response to previous injected areas noted as good. Atrophy Notnoted in previously treated scalp.New Stresses noted: No.Procedure:Nothing applied topically prior to injections.ILK 5mg/cc injected to site(s): Total of 3.0cc's injected.Total injections: >7.Patient tolerated the procedure well. No complaints offered. All questionswere answered.Plan: To return to clinic in 4-6 weeks with nurse for injectionsNati Uribe LPN Normal [facility] SURGICAL PATHOLOGYon 017 SURGICAL PATHOLOGY Specimen #: [id number]*Submitting Physician: DHRUV DICKERSON FINAL DIAGNOSISA. Skin, right upper scalp, punch biopsy ([id number], 06/14/15) -Pauciinflammatory non-scarring alopecia (see comment).MP/keegan/01/27/17 COMMENTSections reveal an overall decreased number of hair follicles withminiaturization. Two catagen hairs are noted. Trichomalacia and pigmentcasts are present within dilated follicular ostia. Peribulbar hemorrhage ispresent around one hair follicle, but damir-bulbar inflammation is notidentified. The overlying epidermis and stratum corneum are unremarkable. Overall, these findings are those of a pauciinflammatory non-scarringalopecia. The presence of increased catagen hairs, miniaturization,trichomalacia and pigment casts can be seen in alopecia areata andtrichotillomania. The presence of peribulbar hemorrhage suggests acomponent of trichotillomania. Clinical correlation is essential. Deborah Paulino M.D.(Electronic Signature) SPECIMEN SUBMITTEDA: 5 SLIDES ([id number]; 3, 5, 7, 9, 10) CLINICAL DATANone provided. of Report: 01/27/2017Date of Procedure: 01/27/2017Date of Receipt: 01/27/2017Submitted by: DHRUV DICKERSONLocation: D95Pstzzuecee interpretation performed at [facility], [address],[facility] [address]. Normal [facility] Comment on above: Performed By: #### PATHS ####[facility] [place], [place] [phone] CNOVon 01-02-2017 CNOV Office Visit (PENDMN) -SHANEKA NUGENT ([id number]) 4 FDate Time Provider Department01/02/17 11:30 AM ARCELIA FLETCHER) PENDMN During your visit today, we recorded the following information about you: Pulse Blood pressure Weight Height 76/minute 108/68 82.4 kg 1.573 m Last Period 01/01/17Stacia Arita LPN, CONSTANCE 01/02/2017 11:52 AM SignedPatient is here with mother today. Time required to prepare patient andparent/s for examination greater than 5 mins.Arcelia Fletcher MD 01/08/2017 11:56 AM SignedTHE KET[facility] HEALTH SPRINGFIELDDivision of Pediatrics CLINIC NOTEPediatric and Adolescent EndocrinologyName: Shaneka NugentDate of Service: January 02, 2017Consultation requested by mom for an opinion regarding hair loss, r/o PCOS. Myfinal recommendations will be communicated back to the requesting physician byway of shared Medical record or letter to requesting physician via US mail.History of Present Illness :History Given By: Nico had the pleasure of [facility] Shaneka, a 16 year old 6 month [facility] female[facility]. The consultation wasrequested by mom.Growth charts, records and laboratory studies provided by Walker Avalos MDwere reviewed at this visit.Shaneka is otherwise healthy female with hx of hair loss and breakagefor the past two years now. Initially saw Jordyn Barrios at [facility] in September 2015, whodiagnosed her with PCOS based on labs drawn in jul 2015. Treated withMetformin, Spironolactone and BCP. Pt followed up with Sophie there but not mucheffect from the meds. Started seeing Derm at [facility], who recc topical creams andinjection starting today.Puberty: started breast development at 9-10 years of age, menarche at 12 yearsof age. Periods have always been regular. Has no hx of facial hair/hair aroundthe nipples.Weight: Has gained weight in the past two years. Has never seen a button spindler.Tries to get as much exercise as possible. 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 Disp: 3 mL Rfl: 2biotin 5,000 mcg ODT Take 2 capsules by mouth once daily. Disp: Rfl:norgestimate 0.25 mg-ethinyl estradiol 35 mcg (MONO-LINYAH) 0.25-35 mg-mcg pertablet Take 1 tablet by mouth once daily. Disp: Rfl:metFORMIN (GLUCOPHAGE) 500 mg tablet Take 500 mg by mouth once daily. Disp:Rfl:spironolactone (ALDACTONE) 50 mg tablet Take 50 mg by mouth once daily. Disp:Rfl:cholecalciferol (VITAMIN D) 1,000 unit tab tablet Take 2,000 Units by mouthonce daily. Disp: Rfl:cyanocobalamin (VITAMIN B-12) 500 mcg tab Take 1 tablet by mouth once daily.Disp: Rfl:PNV NO.115/IRON FUMARATE/FA ( #[id number] ACID ORAL) Take 1 tabletby mouth once daily. Disp: Rfl:Minoxidil 5 % soln Apply once daily to scalp Disp: 1 Bottle Rfl: 2Clobetasol Propionate (TEMOVATE) 0.05 % external solution Apply 8-10 dropsdaily to the scalp Disp: 1 Bottle Rfl: 1No current facility-administered medications for this visit.No past medical history on file.No family history on file.Social History: Lives with momReview of SystemsGENERAL: Negative for malaise, significant weight loss and feverNECK: Negative for lumps, goiter and painRESPIRATORY: Negative for cough, wheezing or shortness of breathCARDIOVASCULAR: Negative for chest pain and leg swellingGI: Negative for abdominal discomfort and change in bowel habitsGU: No history of dysuria or frequencyMUSCULOSKELETAL: Negative for joint pain or swellingSKIN: Negative for lesions and rashPSYCH: Negative for sleep disorder or mood disorderENDOCRINE: Negative for cold or heat intolerance, polyuria and polydipsiaPhysical ExaminationBP 108/68 Pulse 76 Ht 5' 1.929ANDquot; (1.57m) Wt 181 lb 10.5 oz (82.4kg) LMP 01/01/2017 BMI 33.30 kg/(m2). Body surface area is 1.9 meters squared.27 %ile (Z= -0.61) based on CDC 2-20 Years ebhxzua-aut-ugv data using vitalsfrom 01/02/2017.98 %ile (Z= 1.98) based on CDC 2-20 Years zyxszn-pcw-cjo data using vitals from01/02/2017.98 %ile (Z= 2.16) based on CDC 2-20 Years BMI-for-age data using vitals from01/02/2017.General appearance: NAD, conversantEyes: anicteric sclerae, moist conjunctivae; no lid-lag; PERRLAHENT: Atraumatic; oropharynx clear with moist mucous membranes and no mucosalulcerations; normal hard and soft palateNeck: Trachea midline; FROM, supple, no thyromegaly or lymphadenopathyLungs: CTA, with normal respiratory effort and no intercostal retractionsCV: RRR, no MRGsAbdomen: Soft, non-tender; no masses or HSMExtremities: No peripheral edema or extremity lymphadenopathySkin: Normal temperature, turgor and texture; no rash, alopecia notedPsych: Appropriate affect, alert and oriented to person, place and timePubertal Status:Pubic Hair- Dagoberto 5Axillary Hair: fully establishedAcne: noneGU: Normal female, dagoberto 5Laboratory Data reviewed with patient07/18/2015 at [facility]:Free T4: 1.08 ng/dl; TSH 3.53 uIU/mlFSH: 2.9 mIU/ml; LH 13.7 mIU/mlTestosterone 24 ng/dl; Free Testosterone 3.1 pg/mlImaging: n/aImpression: Shaneka is a 16 year old 6 month old female with hx of hair lossand question about PCOS.Labs drawn prior to starting combination estrogen/progestin pills show NORMALtestosterone, elevated LH: FSH ratio. Her menses were regular and she did nothave significant acne/ hirsuitism.I am not convinced she fits criteria for PCOS.I discussed PCOS diagnosis, criteria etc with mom and with patient today. Theywould like to re-address the treatment and try to manage with fewer medicationsif possible. She is having trouble tolerating the Metformin.Discussed weight gain and the relationship between obesity, Insulin resistanceand PCOS.Recc to stop Metformin and Spironolactone, continue with BCP for now. Institutediet and lifestyle changes. In 4-6 months, have labs done (fasting) to includeglucose, insulin, HbA1C, FSH, LH, Total and Free Testosterone levels.Review in 6 monthsI would like to see Shaneka again in endocrine clinic in about 6 months.Thank you for the opportunity to participate in Shaneka's care. Please don'thesitate to call with any questions or concerns.Sincerely,Arcelia Fletcher M.D.Pediatric and Adolescent EndocrinologyI spent 60 with this patient, more than 50% was on counseling and coordinationof care.CC:Walker Avalos MD433 [facility] [phone] The Parents of:Shaneka Gannon [address] [address]Ujdvxcshaun Fletcher MD 01/02/2017 1:05 PM Signed1. Stop Metformin and Control Pill2. Weight Loss efforts3. See me in 6 monthsReferring Provider: SELF [200]Allergies As of Date: 01/02/2017(No Known Allergies)Date Reviewed: 01/02/2017Reviewed by: Nora Gonzalez AIR CONTROL ELECTRONICS OPERATOR - Fully AssessedReason for Visit: Consult [502]Primary Visit Diagnosis:Weight gain, abnormal [R63.5] Other Visit Diagnosis:Alopecia [L65.9]Order(s):GLUCOSE FASTING BLD [SQGLF] Order #: [id number] FUTURE INSULIN ASSAY BLOOD [SQINSULN] Order #: [id number] FUTURE LIPID PANEL BASIC [SQLIPB] Order #: [id number] FUTURE HGB A1C [CGBCM7R] Order #: [id number] FUTURE T4 FREE/FREE THYROX [SQFT4] Order #: [id number] FUTURE TSH BLD [SQTSH] Order #: [id number] FUTURE TESTOSTERONE, FREE AND TOTAL [SQFTESTO] Order #: [id number] FUTURE LUTEINIZING HORMONE [SQLH] Order #: [id number] FUTURE FSH BLD [SQFSH] Order #: [id number] FUTUREPrescriptions as of 01/02/2017 Sig: TRIAMCINOLONE ACETONIDE 10 MG* Intralesional kenalog 5 mg/ml* BIOTIN 5,000 MCG DISINTEGRATI* Take 2 capsules by mouth once* NORGESTIMATE 0.25 MG-ETHINYL * Take 1 tablet by mouth once d* METFORMIN 500 MG TABLET Take 500 mg by mouth once eugenia* SPIRONOLACTONE 50 MG TABLET Take 50 mg by mouth once sabra* CHOLECALCIFEROL (VITAMIN D3) * Take 2,000 Units by mouth onc* CYANOCOBALAMIN (VIT B-12) 500* Take 1 tablet by mouth once d* #[id number] ACID* Take 1 tablet by mouth once d* MINOXIDIL 5 % TOPICAL SOLUTION Apply once daily to scalp CLOBETASOL 0.05 % SCALP SOLUT* Apply 8-10 drops daily to the*Problem List As Of Date: 01/02/2017(None) Other instructions from your clinician: 1. Stop Metformin and Control Pill 2. Weight Loss efforts 3. See me in 6 monthsVisit Notes:>> Stacia ([facility]) LylaCONSTANCE ThuJan 02, 2017 11:52 AM Status: SignedPatient is here with mother today. Time required to prepare patient andparent/s for examination greater than 5 mins.Medications Discontinued During This Encounter biotin 5 mg caspule 01/02/2017 Class: Historical Med Route: ORAL Sig: Take 5 mg by mouth once daily. Disc: Dosage adjustmentLetter Ezls9800 [facility]/[address] [address]Amwsyi: [phone] Dkwegnzwmcbc: [phone]/ [phone]-[phone]([id number])January 08, 2017Walker Avalos MD[address] [place], [place] [address]Rxrnk: [phone]: [phone]: Shaneka Gannon DayanpertDOB: 2000DATE OF SERVICE: 01/02/2017Dear Dr. Avalos:I had the pleasure of seeing your patient, Shaneka Nugent on 01/02/2017.Enclosed please find my encounter note.If you have any questions or concerns, please do not hesitate to contact [facility] [phone] .Very truly yours,Electronically signed by Arcelia Fletcher M.D.[place] for Pediatric EndocrinologyEncl (Encounter note)THE [facility] SPRINGFIELDDivision of PediatricsCLINIC NOTEPediatric and Adolescent EndocrinologyName: Shaneka DayanpertDate of Service: January 02, 2017Consultation requested by mom for an opinion regarding hair loss, r/o PCOS.My final recommendations will be communicated back to the requestingphysician by way of shared Medical record or letter to requesting physicianvia US mail.History of Present Illness :History Given By: Nico had the pleasure of seeing Shaneka, a 16 year old 6 month old female,in our Pediatric Endocrinology Clinic for possible PCOS. The consultation wasrequested by mom.Growth charts, records and laboratory studies provided by Walker Avalos MDwere reviewed at this visit.Shaneka is otherwise healthy female with hx of hair loss andbreakage for the past two years now. [facility] her with PCOS based on labs drawn in jul 2015.Treated with Metformin, Spironolactone and BCP. Pt followed up with Endothere but not much effect from the meds. Started seeing Derm at [facility], who recctopical creams and injection starting today.Puberty: started breast development at 9-10 years of age, menarche at 12years of age. Periods have always been regular. Has no hx of facial hair/hairaround the nipples.Weight: Has gained weight in the past two years. Has never seen a button spindler.Tries to get as much exercise as possible. 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 Disp: 3 mL Rfl: 2biotin 5,000 mcg ODT Take 2 capsules by mouth once daily. Disp:Rfl:norgestimate 0.25 mg-ethinyl estradiol 35 mcg (MONO-LINYAH) 0.25-35 mg-mcgper tablet Take 1 tablet by mouth once daily. Disp: Rfl:metFORMIN (GLUCOPHAGE) 500 mg tablet Take 500 mg by mouth once daily.Disp: Rfl:spironolactone (ALDACTONE) 50 mg tablet Take 50 mg by mouth once daily.Disp: Rfl:cholecalciferol (VITAMIN D) 1,000 unit tab tablet Take 2,000 Units bymouth once daily. Disp: Rfl:cyanocobalamin (VITAMIN B-12) 500 mcg tab Take 1 tablet by mouth oncedaily. Disp: Rfl:PNV NO.115/IRON FUMARATE/FA ( #[id number] ACID ORAL) Take 1tablet by mouth once daily. Disp: Rfl:Minoxidil 5 % soln Apply once daily to scalp Disp: 1 Bottle Rfl: 2Clobetasol Propionate (TEMOVATE) 0.05 % external solution Apply 8-10 dropsdaily to the scalp Disp: 1 Bottle Rfl: 1No current facility-administered medications for this visit.No past medical history on file.No family history on file.Social History: Lives with momReview of SystemsGENERAL: Negative for malaise, significant weight loss and feverNECK: Negative for lumps, goiter and painRESPIRATORY: Negative for cough, wheezing or shortness of breathCARDIOVASCULAR: Negative for chest pain and leg swellingGI: Negative for abdominal discomfort and change in bowel habitsGU: No history of dysuria or frequencyMUSCULOSKELETAL: Negative for joint pain or swellingSKIN: Negative for lesions and rashPSYCH: Negative for sleep disorder or mood disorderENDOCRINE: Negative for cold or heat intolerance, polyuria and polydipsiaPhysical ExaminationBP 108/68 Pulse 76 Ht 5' 1.929 (1.57m) Wt 181 lb 10.5 oz (82.4kg) LMP 01/01/2017 BMI 33.30 kg/(m2). Body surface area is 1.9 meters squared.27 %ile (Z= -0.61) based on [facility] 2-20 Years vnhndfc-nkj-msp data using vitalsfrom 01/02/2017.98 %ile (Z= 1.98) based on CDC 2-20 Years svkiim-tcu-tev data using vitalsfrom 01/02/2017.98 %ile (Z= 2.16) based on CDC 2-20 Years BMI-for-age data using vitals from01/02/2017.General appearance: NAD, conversantEyes: anicteric sclerae, moist conjunctivae; no lid-lag; PERRLAHENT: Atraumatic; oropharynx clear with moist mucous membranes and no mucosalulcerations; normal hard and soft palateNeck: Trachea midline; FROM, supple, no thyromegaly or lymphadenopathyLungs: CTA, with normal respiratory effort and no intercostal retractionsCV: RRR, no MRGsAbdomen: Soft, non-tender; no masses or HSMExtremities: No peripheral edema or extremity lymphadenopathySkin: Normal temperature, turgor and texture; no rash, alopecia notedPsych: Appropriate affect, alert and oriented to person, place and timePubertal Status:Pubic Hair- Dagoberto 5Axillary Hair: fully establishedAcne: noneGU: Normal female, dagoberto 5Laboratory Data reviewed with patient07/18/2015 at [facility]:Free T4: 1.08 ng/dl; TSH 3.53 uIU/mlFSH: 2.9 mIU/ml; LH 13.7 mIU/mlTestosterone 24 ng/dl; Free Testosterone 3.1 pg/mlImaging: n/aImpression: Shaneka is a 16 year old 6 month old female with hx of hairloss and question about PCOS.Labs drawn prior to starting combination estrogen/progestin pills show NORMALtestosterone, elevated LH: FSH ratio. Her menses were regular and she did nothave significant acne/ hirsuitism.I am not convinced she fits criteria for PCOS.I discussed PCOS diagnosis, criteria etc with mom and with patient today.They would like to re-address the treatment and try to manage with fewermedications if possible. She is having trouble tolerating the Metformin.Discussed weight gain and the relationship between obesity, Insulinresistance and PCOS.Recc to stop Metformin and Spironolactone, continue with BCP for now.Welches diet and lifestyle changes. In 4-6 months, have labs done (fasting)to include glucose, insulin, HbA1C, FSH, LH, Total and Free Testosteronelevels.Review in 6 monthsI would like to see Shaneka again in endocrine clinic in about 6 months.Thank you for the opportunity to participate in Shaneka's care. Please don'thesitate to call with any questions or concerns.Sincerely,Arcelia Fletcher M.D.Pediatric and Adolescent EndocrinologyI spent 60 with this patient, more than 50% was on counseling andcoordination of care.CC:Walker Avalos MD433 [facility] [phone] The Parents of:Shaneka Nugent[address] [address]Sxyguooji Number: [id number] Status:Closed by ARCELIA FLECTHER MD on 01/08/17 Normal [facility] CNOV Office Visit (PEDNTR) -SHANEKA NUGENT ([id number]) 02 FDate Time Provider Department01/02/17 11:00 AM INLAYER A120 PEDS MAIN PEDNTR During your visit today, we recorded the following information about you:Stacia Arita LPN, AIR CONTROL ELECTRONICS OPERATOR 01/02/2017 12:28 PM SignedIntake information documented in the prior visit with Dr. Fletcher today.Cheri Willoughby RD 01/02/2017 4:08 PM SignedINITIAL ASSESSMENT VISITPEDIATRIC NUTRITIONSERVICE DATE: 01/02/2017SERVICE TIME: 12:35 PMReason for visit/diagnosis: weight managementDiagnosed/Consulted by: Dr Monteroutrition Assessment:Shaneka Nugent presents today with a BMI/age ANDgt;95th%ile, indicatingobesity; z-score shows no evidence of malnutrition. BMI 120% of the 95th%ileon the extreme BMI growth charts, which is borderline Class II obesity.Current diet is excessive in total energy, primarily from carbohydates. Dietinadequate in lean protein and vegetables. Physical activity is inadequate tosupport weight loss. No labs to review. Patient/parent highly agreeable torecommendations made for diet and lifestyle changesLikelihood of Adherence: HighNutritional status: In the context of Chronic Illness based on:Z score: BMI for age Z score above normative standardsWeight loss: no weight lossIntake: adequate energy intake/excessiveMUAC: deferred, pt well nourishedBody fat: adequate body fat/excessiveMuscle mass: adequate muscle massFluid accumulation categorized as no fluid accumulationFunctional capacity no changeRECOMMEND DIAGNOSIS: NO MALNUTRITION IDENTIFIEDNutrition Diagnosis:Overweight/Obesity related to physical inactivity and excessive energy intakeas evidenced by BMI above normative standards for ageNutrition Interventions:1. Recommend a total overall daily intake of 6-8 servings grains with at leasthalf being whole, 2.5-3 servings vegetables, 1.5-2 servings fruits, 5 servingslean meats/proteins, 3 servings non fat dairy2. ANDquot;Healthy plateANDquot; at meals - 1/2 plate vegetables, 1/4 plate leanprotein, 1/4 plate whole grains3. Recommend the following adjustments to meals: Breakfast -1 bowl of cereal (try cheerios, mini wheats, rice krispies, specialK), then add a protein (hard boiled egg, meat roll ups, string cheese, smallhandful nuts or small spoon peanut butter) No sugar on cereal! Switch to Stevia, but even wean off of this Lunch - swap out chips for veggies and fruit; add 1 cup popcorn (Skinny pop orlight butter) Dinner - reduce grains, always have handful of protein and all the veggies youwant.4. Avoid all beverages with sugar. Water is the best choice or low fat whitemilk5. Exercise: add 30 minutes of walking, baton twirling, dancing, etc most daysof the weekNutrition Monitoring and Evaluation: weight loss 0.5 lb/week; adherence tonutrition related recommendations;Criteria: labs/vitals; patient and parent report;RD to follow up x 2 months for attainment of goals. Shaneka Gannon Jovanna is a 16 year old female, who presents with mother today forweight management. Patient seeing endocrinology today for second opinion onPCOS. Patient has never met with a dietitian before.Nutrition Progress: Oral:Breakfast: cereal (cinnamon toast crunch) with milk, eats multiple bowlsSnack am: noneLunch: sandwich (ham/cheese) + chips OR can spaghettios and chipsSnack pm: noneDinner: tuna helper and broccoli; a lot of pasta - not into meat (onlyhamburger, some chicken, tuna occ) Not always vegetableSnack hs: popsicleBeverages: crystal light pure, water, occ Sprite, occ milk, occ juiceSupplements/Medications: , biotin, vitamin B12, vitamin DPhysical activity level: Sedentary (no activity outside of activities of dailyliving) - Low Active. Baton twirling once per week, will start band campEstimated needs:19 kcal/kg EER and obesity coefficients0.85 g pro/kg DRIMaintenance fluids: 2750 ml/dayAnthropometrics: CDC growth chartWeight: 82.4 kg Percentile: ANDgt; 97thZ score: 1.98Height: 157.3 cm Percentile: 27%Z score: -0.61BMI/age: 33.3 kg/m2 Percentile: ANDgt; 97thZ score: 2.16IBW/height BMI 85th%ile: 58.9 kg%IBW/height: 140%MUAC: deferred, pt visibly well nourishedNutrition Significant Lab Values: None to assessNutrition Focused Physical Exam:Subcutaneous Fat Loss: Orbital: No fat loss Upper body: No fat loss Lower body: No fat lossMuscle Loss Locations:Temporalis: No muscle lossUpper body: No muscle lossLower body: No muscle lossAssessment of functional status: No functional impairment, normal with nolimitationsAscites: NoEdema: NoPotential micronutrient deficiency revealed in no deficiency identifiedPotential Signs of Inflammation: no identifiable sourcesEDUCATIONREADINESS TO LEARNCognitive Ability: Alert and orientedMotivation to Learn: InterestedFamily Support: High - Very involved in pt careInstruction Provided to: Patient and MotherPatient Learns Best by: Multiple MethodsFactors Affecting Learning: NonePhysical Limitations Affecting Learning: NoneSupplemental Material Provided to Patient: General Healthy Eating for Kids andHealthy PlateFood related allergies: Review of patient's allergies indicates no knownallergies.Is the patient having any pain that is interfering with oral/enteral intake: NoTime Spent: 30 minutesSIGNATURE: Cheri Willoughby RD, CSP, LD PATIENT NAME: Shaneka Gannon LippertDATE: January 02, 2017 : 12:35 PM PAGER: [phone] Willoughby RD 01/02/2017 12:58 PM SignedHave a vegetable at both lunch and dinner each day. Veggies any time of the day!Try to have one fruit each day.Breakfast -1 bowl of cereal (try cheerios, mini wheats, rice krispies, specialK), then add a protein (hard boiled egg, meat roll ups, string cheese, smallhandful nuts or small spoon peanut butter) No sugar on cereal! Switch to Stevia, but even wean off of thisLunch - swap out chips for veggies and fruit; add 1 cup popcorn (Skinny pop orlight butter)Dinner - reduce grains, always have handful of protein and all the veggies youwant.Continue mostly sugar free drinks! Water is the best choice.Exercise: add 30 minutes of walking, baton twirling, dancing, etc most days ofthe weekCheri Willoughby RD, [facility], [phone] Provider: ARCELIA FLETCHER) [[id number]]Allergies As of Date: 01/02/2017(No Known Allergies)Date Reviewed: 01/02/2017Reviewed by: Nora Gonzalez LPN - Fully AssessedReason for Visit: Nutrition Assessment [1591]Primary Visit Diagnosis:Obesity, unspecified obesity severity, unspecified obesity type [E66.9] Other Visit Diagnoses:Body mass index, pediatric, greater than or equal to 95th percentile for age [Z68.54] Dietary counseling and surveillance [Z71.3]Prescriptions as of 01/02/2017 Sig: TRIAMCINOLONE ACETONIDE 10 MG* Intralesional kenalog 5 mg/ml* BIOTIN 5,000 MCG DISINTEGRATI* Take 2 capsules by mouth once* NORGESTIMATE 0.25 MG-ETHINYL * Take 1 tablet by mouth once d* METFORMIN 500 MG TABLET Take 500 mg by mouth once eugenia* SPIRONOLACTONE 50 MG TABLET Take 50 mg by mouth once sabra* CHOLECALCIFEROL (VITAMIN D3) * Take 2,000 Units by mouth onc* CYANOCOBALAMIN (VIT B-12) 500* Take 1 tablet by mouth once d* #763-[id number] ACID* Take 1 tablet by mouth once d* MINOXIDIL 5 % TOPICAL SOLUTION Apply once daily to scalp CLOBETASOL 0.05 % SCALP SOLUT* Apply 8-10 drops daily to the*Problem List As Of Date: 01/02/2017(None) Other instructions from your clinician: Have a vegetable at both lunch and dinner each day. Veggies any time of the day! Try to have one fruit each day. Breakfast -1 bowl of cereal (try cheerios, mini wheats, rice krispies, special K), then add a protein (hard boiled egg, meat roll ups, string cheese, small handful nuts or small spoon peanut butter) No sugar on cereal! Switch to Stevia, but even wean off of this Lunch - swap out chips for veggies and fruit; add 1 cup popcorn (Skinny pop or light butter) Dinner - reduce grains, always have handful of protein and all the veggies you want. Continue mostly sugar free drinks! Water is the best choice. Exercise: add 30 minutes of walking, baton twirling, dancing, etc most days of the week Cheri Willoughby, RD, CSP, LD [phone] Notes:>> Stacia (Constance) CONSTANCE Arita ThuJan 02, 2017 12:28 PM Status: SignedIntake information documented in the prior visit with Dr. Augustin. Status:Closed by CHERI WILLOUGHBY on 01/02/17 [facility] CNOV Office Visit (DERMMN) -JOVANNASHANEKA Gannon ([id number]) 02 [facility] Time Provider Department01/02/17 10:20 AM DHRUV DICKERSON DERMMN During your visit today, we recorded the following information about you: Weight 82.5 kgDhruv Dickerson MD, 01/02/2017 4:06 PM SignedHistory of Present Illness:Shaneka Nugent is a 16 year old female seen today for follow-up evaluationof alopecia, likely alopecia areata. Here today with mom.Interim Course: Stable- Every few months patches of hair fall out; despite using both therapies- Noticing that frontal scalp hair does not grow past a certain length -compared to occipital/back of head hair which needs cutting- Left scalp patch improvedAreas of hair loss: scalpPattern: diffuseAssociated Symptoms: Pain and Poor self esteemCurrent Treatments:minoxidil 5%clobetasol 0.05% to scalpBiotin 5mg BID- also on medication for PCOS (OCPs, metformin)Alopecia Medication Compliance: Using all topical and systemic medications asprescribed at last visitSide effects from Treatments: noneInterim Test Results: noneALLERGIESNo Known AllergiesCurrent Outpatient Prescriptions:norgestimate 0.25 mg-ethinyl estradiol 35 mcg (MONO-LINYAH) 0.25-35 mg-mcg pertablet Take 1 tablet by mouth once daily. Disp: Rfl:metFORMIN (GLUCOPHAGE) 500 mg tablet Take 500 mg by mouth twice daily withmeals. Disp: Rfl:spironolactone (ALDACTONE) 50 mg tablet Take 50 mg by mouth once daily. Disp:Rfl:cholecalciferol (VITAMIN D) 1,000 unit tab tablet Take 1,000 Units by mouthonce daily. Disp: Rfl:biotin 5 mg caspule Take 5 mg by mouth once daily. Disp: Rfl:cyanocobalamin (VITAMIN B-12) 500 mcg tab Take by mouth once daily. Disp:Rfl:PNV NO.115/IRON FUMARATE/FA ( #[id number] ACID ORAL) Take bymouth. Disp: Rfl:Minoxidil 5 % soln Apply once daily to scalp Disp: 1 Bottle Rfl: 2Clobetasol Propionate (TEMOVATE) 0.05 % external solution Apply 8-10 dropsdaily to the scalp Disp: 1 Bottle Rfl: 1No current facility-administered medications for this visit.Review of systems:GENERAL: No fevers or irritability.Normal sleep, appetite and activitySKIN: See HPIPhysical Exam:Wt 82.5 kg (181 lb 12.8 oz)General appearance: well appearing, alert, in no acute distressMood/Affect:PleasantS calp:- Areas of thinning hair in crown region especially left and right parietalareas (RANDgt;L). [place] hair distribution very thin with small excoriated lesionseen. Larger alopecic patches on left parietal scalp and right temporo-parietalscalp both with regrowthFace/Head: thinning lateral eyebrows bilaterallyEyes: clearOral: not examinedNeck: clearTrunk/Chest: not examinedBack: not examinedButtock/Groin/Genital ia: not examinedRUE: not examinedLUE: not examinedRLE: not examinedLLE: not examinedNAILS: clear, no pittingAdditional Diagnostic Testing performed during Exam: NoneImpression and Plan:Shaneka was seen today for hair loss.Diagnoses and all orders for this visit:Alopecia areata- Triamcinolone acetonide (KENALOG 10) 10 mg/mL injection; Intralesionalkenalog 5 mg/ml up to 3 ml to areas of hair loss. WIll do this q4-6 weeks for 3total injections- Repeat ILK every 4 to 6 weeks for 3 total injections- Consent for release signed by patient/parent [facility]- Continue topical minoxidil ANDamp; clobetasol daily; biotin 5mg dailyFollow-up: 3 monthsPRABHJOT Bluntediatric Resident PGY-2CSt. [facility]'s11:22 AM, 01/02/17I have seen and examined Ms. Nugent. I have discussed the case and themanagement of this patient's care with the Resident.I also have reviewed and agree with the assessment and plan as stated above andagree with all of its relevant components.There were no procedures performed during this patient?s visit.Eugene Alaniz Provider: SELF [200]Allergies As of Date: 01/02/2017(No Known Allergies)Date Reviewed: 01/02/2017Reviewed by: Nora Gonzalez LPN - Fully AssessedReason for Visit: Hair Loss [933]Primary Visit Diagnosis:Alopecia areata [L63.9]Order(s):triamcinolone acetonide (KENALOG 10) 10 mg/mL injectionIntralesional kenalog 5 mg/ml up to 3 ml to areas of hair loss.Disp: 3 mLRfl: 2Prescriptions as of 01/02/2017 Sig: NORGESTIMATE 0.25 MG-ETHINYL * Take 1 tablet by mouth once d* METFORMIN 500 MG TABLET Take 500 mg by mouth once eugenia* SPIRONOLACTONE 50 MG TABLET Take 50 mg by mouth once sabra* CHOLECALCIFEROL (VITAMIN D3) * Take 2,000 Units by mouth onc* CYANOCOBALAMIN (VIT B-12) 500* Take 1 tablet by mouth once d* #296-MEKI-EQVLX ACID* Take 1 tablet by mouth once d* MINOXIDIL 5 % TOPICAL SOLUTION Apply once daily to scalp CLOBETASOL 0.05 % SCALP SOLUT* Apply 8-10 drops daily to the*X BIOTIN 5 MG CAPSULE Take 5 mg by mouth once daily. TRIAMCINOLONE ACETONIDE 10 MG* Intralesional kenalog 5 mg/ml*Problem List As Of Date: 01/02/2017(None)Prescriptions ordered this encounter Disp Refills Start End TRIAMCINOLONE ACETONIDE 10 MG/ML DIEGO* 3 mL 2 01/02/2017 Class: In Office Sig: Intralesional kenalog 5 mg/ml up to 3 ml to areas of hair loss. Status:Closed by DHRUV DICKERSON MD on 01/02/17 Normal [facility] PROGRESSon 01-02-2017 PROGRESS HNO ID: [id number] thor: Cheri (Joseph) WilloughbyService: (none)Author Type: Registered DietitianType: Progress NotesFiled: 01/02/2017 4:08 PMNote Text:INITIAL ASSESSMENT VISITPEDIATRIC NUTRITIONSERVICE DATE: 01/02/2017SERVICE TIME: 12:35 PMReason for visit/diagnosis: weight managementDiagnosed/Consulted by: Dr Monteroutrition Assessment:Shaneka Nugent presents today with a BMI/age >95th%ile, indicatingobesity; z-score shows no evidence of malnutrition. BMI 120% of mde97ao%ile on the extreme BMI growth charts, which is borderline Class IIobesity. Current diet is excessive in total energy, primarily fromcarbohydates. Diet inadequate in lean protein and vegetables. Physicalactivity is inadequate to support weight loss. No labs to review.Patient/parent highly agreeable to recommendations made for diet andlifestyle changesLikelihood of Adherence: HighNutritional status: In the context of Chronic Illness based on:Z score: BMI for age Z score above normative standardsWeight loss: no weight lossIntake: adequate energy intake/excessiveMUAC: deferred, pt well nourishedBody fat: adequate body fat/excessiveMuscle mass: adequate muscle massFluid accumulation categorized as no fluid accumulationFunctional capacity no changeRECOMMEND DIAGNOSIS: NO MALNUTRITION IDENTIFIEDNutrition Diagnosis:Overweight/Obesity related to physical inactivity and excessive energyintake as evidenced by BMI above normative standards for ageNutrition Interventions:1. Recommend a total overall daily intake of 6-8 servings grains with atleast half being whole, 2.5-3 servings vegetables, 1.5-2 servings fruits,5 servings lean meats/proteins, 3 servings non fat dairy2. Healthy plate at meals - 1/2 plate vegetables, 1/4 plate leanprotein, 1/4 plate whole grains3. Recommend the following adjustments to meals: Breakfast -1 bowl of cereal (try cheerios, mini wheats, rice krispies,special K), then add a protein (hard boiled egg, meat roll ups, stringcheese, small handful nuts or small spoon peanut butter) No sugar on cereal! Switch to Stevia, but even wean off of this Lunch - swap out chips for veggies and fruit; add 1 cup popcorn (Skinnypop or light butter) Dinner - reduce grains, always have handful of protein and all theveggies you want.4. Avoid all beverages with sugar. Water is the best choice or low fatwhite milk5. Exercise: add 30 minutes of walking, baton twirling, dancing, etc mostdays of the weekNutrition Monitoring and Evaluation: weight loss 0.5 lb/week; adherence tonutrition related recommendations;Criteria: labs/vitals; patient and parent report;RD to follow up x 2 months for attainment of goals. Shaneka Teressa Nugent is a 16 year old female, who presents with mother todayfor weight management. Patient seeing endocrinology today for secondopinion on PCOS. Patient has never met with a dietitian before.Nutrition Progress: Oral:Breakfast: cereal (cinnamon toast crunch) with milk, eats multiple bowlsSnack am: noneLunch: sandwich (ham/cheese) + chips OR can spaghettios and chipsSnack pm: noneDinner: tuna helper and broccoli; a lot of pasta - not into meat (onlyhamburger, some chicken, tuna occ) Not always vegetableSnack hs: popsicleBeverages: crystal light pure, water, occ Sprite, occ milk, occ juiceSupplements/Medications: , biotin, vitamin B12, vitamin DPhysical activity level: Sedentary (no activity outside of activities ofdaily living) - Low Active. Baton twirling once per week, will start bandcampEstimated needs:19 kcal/kg EER and obesity coefficients0.85 g pro/kg DRIMaintenance fluids: 2750 ml/dayAnthropometrics: CDC growth chartWeight: 82.4 kg Percentile: > 97thZ score: 1.98Height: 157.3 cm Percentile: 27%Z score: -0.61BMI/age: 33.3 kg/m2 Percentile: > 97thZ score: 2.16IBW/height BMI 85th%ile: 58.9 kg%IBW/height: 140%MUAC: deferred, pt visibly well nourishedNutrition Significant Lab Values: None to assessNutrition Focused Physical Exam:Subcutaneous Fat Loss: Orbital: No fat loss Upper body: No fat loss Lower body: No fat lossMuscle Loss Locations:Temporalis: No muscle lossUpper body: No muscle lossLower body: No muscle lossAssessment of functional status: No functional impairment, normal with nolimitationsAscites: NoEdema: NoPotential micronutrient deficiency revealed in no deficiency identifiedPotential Signs of Inflammation: no identifiable sourcesEDUCATIONREADINESS TO LEARNCognitive Ability: Alert and orientedMotivation to Learn: InterestedFamily Support: High - Very involved in pt careInstruction Provided to: Patient and MotherPatient Learns Best by: Multiple MethodsFactors Affecting Learning: NonePhysical Limitations Affecting Learning: NoneSupplemental Material Provided to Patient: General Healthy Eating for Kidsand Healthy PlateFood related allergies: Review of patient's allergies indicates no knownallergies.Is the patient having any pain that is interfering with oral/enteralintake: NoTime Spent: 30 minutesSIGNATURE: Cheri Willoughby RD, CSP, LD PATIENT NAME: Shaneka CurryertDATE: January 02, 2017 : 12:35 PM PAGER: [phone] Normal [facility] PROGRESS HNO ID: [id number] thor: Arcelia Oliveros) RadhamesasimhanService: (none)Author Type: PhysicianType: Progress NotesFiled: 01/08/2017 11:56 AMNote Text:[facility] SPRINGFIELDDivision of Pediatrics CLINIC NOTEPediatric and Adolescent EndocrinologyName: Shaneka LippertDate of Service: January 02, 2017Consultation requested by mom for an opinion regarding hair loss, r/oPCOS. My final recommendations will be communicated back to therequesting physician by way of shared Medical record or letter torequesting physician via US mail.History of Present Illness :History Given By: momMaico had the pleasure of seeing Shaneka, a 16 year old 6 month old female, in our Pediatric Endocrinology Clinic for possible PCOS. The consultationwas requested by mom.Growth charts, records and laboratory studies provided by Walker Avalos MD were reviewed at this visit.Shaneka is otherwise healthy female with hx of hair loss andbreakage for the past two years now. [facility] her with [facility] based on labs drawn in jul 2015.Treated with Metformin, Spironolactone and BCP. Pt followed up with Endothere but not much effect from the meds. [facility].Puberty: started breast development at 9-10 years of age, menarche at 12years of age. Periods have always been regular. Has no hx of facialhair/hair around the nipples.Weight: Has gained weight in the past two years. Has never seen adietician. Tries to get as much exercise as possible. 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 Disp: 3 mL Rfl: 2biotin 5,000 mcg ODT Take 2 capsules by mouth once daily. Disp: Rfl:norgestimate 0.25 mg-ethinyl estradiol 35 mcg (MONO-LINYAH) 0.25-35 mg-mcgper tablet Take 1 tablet by mouth once daily. Disp: Rfl:metFORMIN (GLUCOPHAGE) 500 mg tablet Take 500 mg by mouth once daily.Disp: Rfl:spironolactone (ALDACTONE) 50 mg tablet Take 50 mg by mouth once daily.Disp: Rfl:cholecalciferol (VITAMIN D) 1,000 unit tab tablet Take 2,000 Units bymouth once daily. Disp: Rfl:cyanocobalamin (VITAMIN B-12) 500 mcg tab Take 1 tablet by mouth oncedaily. Disp: Rfl:PNV NO.115/IRON FUMARATE/FA ( #186-HWSL-GELOV ACID ORAL) Take 1tablet by mouth once daily. Disp: Rfl:Minoxidil 5 % soln Apply once daily to scalp Disp: 1 Bottle Rfl: 2Clobetasol Propionate (TEMOVATE) 0.05 % external solution Apply 8-10 dropsdaily to the scalp Disp: 1 Bottle Rfl: 1No current facility-administered medications for this visit.No past medical history on file.No family history on file.Social History: Lives with momReview of SystemsGENERAL: Negative for malaise, significant weight loss and feverNECK: Negative for lumps, goiter and painRESPIRATORY: Negative for cough, wheezing or shortness of breathCARDIOVASCULAR: Negative for chest pain and leg swellingGI: Negative for abdominal discomfort and change in bowel habitsGU: No history of dysuria or frequencyMUSCULOSKELETAL: Negative for joint pain or swellingSKIN: Negative for lesions and rashPSYCH: Negative for sleep disorder or mood disorderENDOCRINE: Negative for cold or heat intolerance, polyuria and polydipsiaPhysical ExaminationBP 108/68 Pulse 76 Ht 5' 1.929 (1.57m) Wt 181 lb 10.5 oz (82.4kg) LMP 01/01/2017 BMI 33.30 kg/(m2). Body surface area is 1.9 meterssquared.27 %ile (Z= -0.61) based on CDC 2-20 Years qatnmxp-itt-oad data usingvitals from 01/02/2017.98 %ile (Z= 1.98) based on CDC 2-20 Years yyjavi-enj-pfl data using vitalsfrom 01/02/2017.98 %ile (Z= 2.16) based on CDC 2-20 Years BMI-for-age data using vitalsfrom 01/02/2017.General appearance: NAD, conversantEyes: anicteric sclerae, moist conjunctivae; no lid-lag; PERRLAHENT: Atraumatic; oropharynx clear with moist mucous membranes and nomucosal ulcerations; normal hard and soft palateNeck: Trachea midline; FROM, supple, no thyromegaly or lymphadenopathyLungs: CTA, with normal respiratory effort and no intercostal retractionsCV: RRR, no MRGsAbdomen: Soft, non-tender; no masses or HSMExtremities: No peripheral edema or extremity lymphadenopathySkin: Normal temperature, turgor and texture; no rash, alopecia notedPsych: Appropriate affect, alert and oriented to person, place and timePubertal Status:Pubic Hair- Dagoberto 5Axillary Hair: fully establishedAcne: noneGU: Normal female, dagoberto 5Laboratory Data reviewed with patient07/18/2015 at [facility]:Free T4: 1.08 ng/dl; TSH 3.53 uIU/mlFSH: 2.9 mIU/ml; LH 13.7 mIU/mlTestosterone 24 ng/dl; Free Testosterone 3.1 pg/mlImaging: n/aImpression: Shaneka is a 16 year old 6 month old female with hx of hairloss and question about PCOS.Labs drawn prior to starting combination estrogen/progestin pills showNORMAL testosterone, elevated LH: FSH ratio. Her menses were regular andshe did not have significant acne/ hirsuitism.I am not convinced she fits criteria for PCOS.I discussed PCOS diagnosis, criteria etc with mom and with patient today.They would like to re-address the treatment and try to manage with fewermedications if possible. She is having trouble tolerating the Metformin.Discussed weight gain and the relationship between obesity, Insulinresistance and PCOS.Recc to stop Metformin and Spironolactone, continue with BCP for now.Welches diet and lifestyle changes. In 4-6 months, have labs done(fasting) to include glucose, insulin, HbA1C, FSH, LH, Total and FreeTestosterone levels.Review in 6 monthsI would like to see Shaneka again in endocrine clinic in about 6 months.Thank you for the opportunity to participate in Shaneka's care. Pleasedon't hesitate to call with any questions or concerns.Sincerely,Arcelia Fletcher M.D.Pediatric and Adolescent EndocrinologyI spent 60 with this patient, more than 50% was on counseling andcoordination of care.CC:Walker Avalos MD[address] [facility] [phone] The Parents of:Shaneka Nugent[address] [place] [id number] Normal [facility] PROGRESS HNO ID: [id number] thor: KEVIN Alanizervice: (none)Author Type: PhysicianType: Progress NotesFiled: 01/02/2017 4:06 PMNote Text:History of Present Illness:Shaneka Nugent is a 16 year old female seen today for follow-upevaluation of alopecia, likely alopecia areata. Here today with mom.Interim Course: Stable- Every few months patches of hair fall out; despite using both therapies- Noticing that frontal scalp hair does not grow past a certain length -compared to occipital/back of head hair which needs cutting- Left scalp patch improvedAreas of hair loss: scalpPattern: diffuseAssociated Symptoms: Pain and Poor self esteemCurrent Treatments:minoxidil 5%clobetasol 0.05% to scalpBiotin 5mg BID- also on medication for PCOS (OCPs, metformin)Alopecia Medication Compliance: Using all topical and systemic medicationsas prescribed at last visitSide effects from Treatments: noneInterim Test Results: noneALLERGIESNo Known AllergiesCurrent Outpatient Prescriptions:norgestimate 0.25 mg-ethinyl estradiol 35 mcg (MONO-LINYAH) 0.25-35 mg-mcgper tablet Take 1 tablet by mouth once daily. Disp: Rfl:metFORMIN (GLUCOPHAGE) 500 mg tablet Take 500 mg by mouth twice daily withmeals. Disp: Rfl:spironolactone (ALDACTONE) 50 mg tablet Take 50 mg by mouth once daily.Disp: Rfl:cholecalciferol (VITAMIN D) 1,000 unit tab tablet Take 1,000 Units bymouth once daily. Disp: Rfl:biotin 5 mg caspule Take 5 mg by mouth once daily. Disp: Rfl:cyanocobalamin (VITAMIN B-12) 500 mcg tab Take by mouth once daily. Disp: Rfl:PNV NO.115/IRON FUMARATE/FA ( #524-TCVM-SUORF ACID ORAL) Take bymouth. Disp: Rfl:Minoxidil 5 % soln Apply once daily to scalp Disp: 1 Bottle Rfl: 2Clobetasol Propionate (TEMOVATE) 0.05 % external solution Apply 8-10 dropsdaily to the scalp Disp: 1 Bottle Rfl: 1No current facility-administered medications for this visit.Review of systems:GENERAL: No fevers or irritability.Normal sleep, appetite and activitySKIN: See HPIPhysical Exam:Wt 82.5 kg (181 lb 12.8 oz)General appearance: well appearing, alert, in no acute distressMood/Affect:PleasantS calp:- Areas of thinning hair in crown region especially left and rightparietal areas (R>L). [place] hair distribution very thin with smallexcoriated lesion seen. Larger alopecic patches on left parietal scalp andright temporo-parietal scalp both with regrowthFace/Head: thinning lateral eyebrows bilaterallyEyes: clearOral: not examinedNeck: clearTrunk/Chest: not examinedBack: not examinedButtock/Groin/Genital ia: not examinedRUE: not examinedLUE: not examinedRLE: not examinedLLE: not examinedNAILS: clear, no pittingAdditional Diagnostic Testing performed during Exam: NoneImpression and Plan:Shaneka was seen today for hair loss.Diagnoses and all orders for this visit:Alopecia areata- Triamcinolone acetonide (KENALOG 10) 10 mg/mL injection; Intralesionalkenalog 5 mg/ml up to 3 ml to areas of hair loss. WIll do this q4-6 weeksfor 3 total injections- Repeat ILK every 4 to 6 weeks for 3 total injections- Consent for release signed by patient/parent [facility]- Continue topical minoxidil AND clobetasol daily; biotin 5mg dailyFollow-up: 3 monthsPRABHJOT Bluntediatric Resident PGY-2CSt. [facility]11:22 AM, 01/02/17I have seen and examined Ms. Nugent. I have discussed the case and themanagement of this patient's care with the Resident.I also have reviewed and agree with the assessment and plan as statedabove and agree with all of its relevant components.There were no procedures performed during this patient?s visit.Dhruv Dickerson MD [facility] Vital Signs Date Time Vital Sign Value Performing Clinician Facility 08-18-2023 09:25-0500 Body height 157.5 cm Yingel Whiteholz DRIVER LICENSE TECHNICIAN Work Phone: [facility] 08-18-2023 09:25-0500 Body mass index (BMI) [Ratio] 44.34 kg/m2 Ying Aichholz DRIVER LICENSE TECHNICIAN Work Phone: [facility] 08-18-2023 09:25-0500 Body temperature 97.5 [degF] Ying Aichholz DRIVER LICENSE TECHNICIAN Work Phone: [facility] 08-18-2023 09:25-0500 Body weight 109.95 kg Ying Aichholz DRIVER LICENSE TECHNICIAN Work Phone: [facility] 08-18-2023 09:25-0500 Diastolic blood pressure 86 mm[Hg] Ying Aichholz DRIVER LICENSE TECHNICIAN Work Phone: [facility] 08-18-2023 09:25-0500 Heart rate 103 /min Ying Aichholz DRIVER LICENSE TECHNICIAN Work Phone: [facility] 08-18-2023 09:25-0500 Respiratory rate 19 /min Ying Aichholz DRIVER LICENSE TECHNICIAN Work Phone: [facility] 08-18-2023 09:25-0500 SaO2% (BldA) [Mass fraction] 98 % Ying Aichholz DRIVER LICENSE TECHNICIAN Work Phone: [facility] 08-18-2023 09:25-0500 Systolic blood pressure 122 mm[Hg] Ying Aichholz DRIVER LICENSE TECHNICIAN Work Phone: [facility] 12-09-2021 18:25-0400 Body height 157.48 cm Mitzi Obregon Other [facility] Other 12-09-2021 18:25-0400 Body mass index (BMI) [Ratio] 40.23 kg/m2 Mitzi Obregon Other [facility] Other 12-09-2021 18:25-0400 Body temperature 98 [degF] Mitzi Obregon Other [facility] Other 12-09-2021 18:25-0400 Body weight 99.79 kg Mitzi Obregon Other [facility] Other 12-09-2021 18:25-0400 Respiratory rate 18 /min Mitzi Obregon Other [facility] Other 12-09-2021 18:25-0400 SaO2% (BldA) [Mass fraction] 98 % Mitzi Obregon Other [facility] Other 05-16-2021 15:45-0500 Body height 185.42 cm Esther Ginty Other [facility] Other 05-16-2021 15:45-0500 Body mass index (BMI) [Ratio] 23.09 kg/m2 Esther Ginty Other [facility] Other 05-16-2021 15:45-0500 Body temperature 98.7 [degF] Esther Ginty Other [facility] Other 05-16-2021 15:45-0500 Body weight 79.38 kg Esther Ginty Other [facility] Other 05-16-2021 15:45-0500 Respiratory rate 18 /min Esther Ginty Other [facility] Other 05-16-2021 15:45-0500 SaO2% (BldA) [Mass fraction] 96 % Esther Lian Other [facility] Other Encounters Encounter Date Encounter Type Care Provider Facility Start: 08-18-2023 Bamboo flowsheet Ying Reid DRIVER LICENSE TECHNICIAN Work Phone: [facility] Start: 08-18-2023 Bamboo flowsheet Ying Whiterasalfonso DRIVER LICENSE TECHNICIAN Work Phone: [facility] Start: 08-18-2023 End: 08-18-2023 ambulatory YING WHITERASAlfonso Not Available Start: 08-18-2023 End: 08-18-2023 Office outpatient visit 15 minutes Ying Whiterasalfonso DRIVER LICENSE TECHNICIAN Work Phone: [facility] Comment on above: Laryngitis (Primary Dx); Morbid obesity with BMI of 40.0-44.9, adult (CMS/[facility]); COVID-19 virus detected Start: 07-16-2023 End: 07-16-2023 ambulatory PENOLA P WALKER Not Available Start: 07-09-2023 End: 07-09-2023 ambulatory PENOLA P WALKER Not Available Start: 06-01-2023 End: 06-01-2023 ambulatory PENOLA WALKER Not Available Start: 08-05-2022 End: 08-06-2022 ambulatory BINDERY CUTTER OPERATOR YING BAYLEECarleyOMERO Facility: Start: 12-09-2021 End: 12-09-2021 ambulatory Mitzi Obregon Other [facility] Other Start: 12-09-2021 Office outpatient visit 15 minutes Mitzi Obregon [facility] Start: 07-15-2021 End: 07-15-2021 ambulatory Crys Truong Other [facility] Other Start: 07-15-2021 Office outpatient visit 5 minutes Crys Truong [facility] Start: 05-16-2021 End: 05-16-2021 ambulatory Esther Beal Other [facility] [employer] Other Start: 05-16-2021 Office outpatient visit 15 minutes Esther Beal [facility] Start: 07-24-2017 End: 07-24-2017 Ambulatory [facility] Start: 06-25-2017 End: 06-25-2017 Ambulatory [facility] Start: 05-27-2017 End: 05-27-2017 Ambulatory [facility] Start: 04-24-2017 End: 04-24-2017 Ambulatory CARLOS OCHOA [facility] Start: 04-24-2017 End: 04-24-2017 [facility]: 02-25-2017 End: 02-25-2017 Ambulatory [facility] Start: 01-28-2017 End: 01-28-2017 Ambulatory [facility] Start: 01-02-2017 End: 01-02-2017 [facility] Start: 01-02-2017 End: 01-07-2017 Ambulatory [facility] Plan of Treatment Date Care Activity Detail Author Start: 08-18-2023 End: 08-18-2023 Patient encounter procedure 08/18/2023 9:20 AM EST Office Visit [facility] [address] [place] [address] Ying Reid NP [address] [place] [address] Arrived [facility] Comment on above: Arrived Start: 03-06-2023 Influenza vaccination [facility] Immunization Date Immunization Notes Care Provider Fa cility 04-06-2019 hepatitis A vaccine, pediatric/adolescent dosage, 2 dose schedule Ying Reid DRIVER LICENSE TECHNICIAN Work Phone: [facility] 11-04-2018 meningococcal B vacc ine, fully recombinant Ying Reid DRIVER LICENSE TECHNICIAN Work Phone: [facility] 10-05-2018 hepatitis A vaccine, pediatric/adolescent dosage, 2 dose schedule Ying Jeanette DRIVER LICENSE TECHNICIAN Work Phone: [facility] 10-05-2018 meningococcal B vacc ine, fully recombinant Ying Jeanette DRIVER LICENSE TECHNICIAN Work Phone: [facility] 10-05-2018 meningococcal polysaccharide (groups A, C, Y and W-135) diphtheria toxoid conjugate vaccine (MCV4P) Ying Jeanette DRIVER LICENSE TECHNICIAN Work Phone: [facility] 02-08-2015 diphtheria, tetanus toxoids and acellular pertussis vaccine Ying Jeanette DRIVER LICENSE TECHNICIAN Work Phone: [facility] 02-24-2008 diphtheria, tetanus toxoids and acellular pertussis vaccine Ying Jeanette DRIVER LICENSE TECHNICIAN Work Phone: [facility] 02-24-2008 measles, mumps and r ubella virus vaccine Ying Jeanette DRIVER LICENSE TECHNICIAN Work Phone: [facility] 02-24-2008 poliovirus vaccine, inactivated Ying Jeanette DRIVER LICENSE TECHNICIAN Work Phone: [facility] 02-24-2008 varicella virus vaccine Ying Jeanette DRIVER LICENSE TECHNICIAN Work Phone: [facility] 10-30-2003 varicella virus vaccine Ying Jeanette DRIVER LICENSE TECHNICIAN Work Phone: [facility] 07-14-2003 measles, mumps and r ubella virus vaccine Ying Jeanette DRIVER LICENSE TECHNICIAN Work Phone: [facility] 03-01-2003 diphtheria, tetanus toxoids and acellular pertussis vaccine Ying Jeanette DRIVER LICENSE TECHNICIAN Work Phone: [facility] 03-01-2003 haemophilus influenz ae type b vaccine, PRP-OMP conjugate Ying Reid DRIVER LICENSE TECHNICIAN Work Phone: [facility] 03-01-2003 hepatitis B vaccine, adult dosage Ying Reid DRIVER LICENSE TECHNICIAN Work Phone: [facility] 03-01-2003 pneumococcal conjuga te vaccine, 13 valent Ying Aichholz DRIVER LICENSE TECHNICIAN Work Phone: [facility] 03-01-2003 poliovirus vaccine, inactivated Ying Aichholz DRIVER LICENSE TECHNICIAN Work Phone: [facility] 2002 diphtheria, tetanus toxoids and acellular pertussis vaccine Ying Aichholz DRIVER LICENSE TECHNICIAN Work Phone: [facility] 2002 haemophilus influenz ae type b vaccine, PRP-OMP conjugate Ying Aichholz DRIVER LICENSE TECHNICIAN Work Phone: [facility] 2002 hepatitis B vaccine, adult dosage Ying Aichholz DRIVER LICENSE TECHNICIAN Work Phone: [facility] 2002 pneumococcal conjuga te vaccine, 13 valent Ying Aichholz DRIVER LICENSE TECHNICIAN Work Phone: [facility] 2002 poliovirus vaccine, inactivated Ying Aichholz DRIVER LICENSE TECHNICIAN Work Phone: [facility] 2002 diphtheria, tetanus toxoids and acellular pertussis vaccine Ying Aichholz DRIVER LICENSE TECHNICIAN Work Phone: [facility] 2002 haemophilus influenz ae type b vaccine, PRP-OMP conjugate Ying Aichholz DRIVER LICENSE TECHNICIAN Work Phone: [facility] 2002 hepatitis B vaccine, adult dosage Ying Aichholz DRIVER LICENSE TECHNICIAN Work Phone: [facility] 2002 pneumococcal conjuga te vaccine, 13 valent Ying Aichholz DRIVER LICENSE TECHNICIAN Work Phone: [facility] 2002 poliovirus vaccine, inactivated Ying Aichholz DRIVER LICENSE TECHNICIAN Work Phone: [facility] Payers Date Payer Category Payer Private Health Insurance [id number] 2022 Unknown BCBS BCBS [id number] 2022-[facility] [phone] [address] [place] [address] [id number] 2002 Unknown [id number] 2002 Unknown [id number] 2002 Unknown [id number] 2002 Unknown [id number] 2002 Unknown [id number] 2002 Unknown [id number] 1959 Unknown [id number] Private Health Insurance [id number] Unknown [id number] Social History Date Type Detail Facility Start: 08-04-2023 End: 08-18-2023 Sex Assigned At [facility] Start: 11-26-2022 Tobacco smoking status [facility] Never sm oked tobacco [facility] Start: 11-26-2022 Tobacco use and exposure Smoke less tobacco non-user [facility] Start: 08-18-2023 Alcohol intake Lifetime non-d lorena (finding) [facility] Start: 08-04-2023 End: 08-18-2023 [facility] Within the last year , have you been afraid of your partner or ex-partner? No [facility] Are you now , , , , never or living with a partner? Living with partner [facility] How often to you hav e a drink containing alcohol? 2-4 times a month [facility] How many standard dr inks containing alcohol do you have on a typical day? 1 or 2 [facility] How often do you hav e 6 or more drinks on 1 occasion? Less than monthly [facility] How hard is it for y ou to pay for the very basics like food, housing, medical care, and heating Very hard [facility] Do you feel stress - tense, restless, nervous, or anxious, or unable to sleep at night because your mind is troubled all the time - these days [OSQ] To some extent [facility] (I/We) worried wheth er (my/our) food would run out before (I/we) got money to buy more. Often true [facility] In the past 12 month s, has lack of transportation kept you from medical appointments or from getting medications? No [facility] Start: 06-27-2023 Alcohol Comment caffeine intak e: occasional [facility] Start: 2000 Sex Assigned At Female [facility] Start: 11-19-2022 Gender identity Identifies as female gender (finding) [facility] Start: 11-19-2022 Sexual orientation Heterosexual (fin yayo) [facility] History of Present illness Narrative 08-18-2023 Ying Reid NP - 08/18/2023 9:53 AM Bonny Reid NP - 08/18/2023 9:52 AM HEMANTH MORALES - 08/18/2023 9:20 AM Bonny Reid NP - 08/18/2023 9:20 AM EST Note Date & Type Note Facility 08-18-2023 History of Presen t illness Narrative Associated Problem(s): Laryngitis Tylenol, motrin prn Warm salt water gargles Add zithromax Fu if not better Associated Problem(s): COVID-19 virus detected + at home test in last 14 days Feeling better still with laryngitis Pt had covid 2 weeks ago. Has dry cough. Lost voice about 1 1/2 weeks ago. Pt is having a little bit of SOB Images from the original note were not included. Shaneka Nugent is a 23 y.o. female presents with chief complaint of No chief complaint on file. HPI: Had COVID about 10-12 days ago, 5 days in developed laryngitis, still persisting, mild sore throat, no sinus congestion, no ear pain No fever, chills SUBJECTIVE: MEDICATIONS: Current Outpatient Medications Medication Instructions aspirin 81 mg, Oral, Daily azithromycin (Zithromax) 250 MG tablet 2 pills day #1, 1 pill day #2-#5 ALLERGIES: No Known Allergies REVIEW OF SYMPTOMS: Review of Systems Constitutional: Negative for appetite change, chills and fever. HENT: Negative for congestion, ear pain and sore throat. Laryngitis Eyes: Negative for pain, discharge, redness and visual disturbance. Respiratory: Negative for cough, shortness of breath and wheezing. Cardiovascular: Negative for chest pain, palpitations and leg swelling. Gastrointestinal: Negative for abdominal pain, blood in stool, constipation, diarrhea, nausea and vomiting. Genitourinary: Negative for difficulty urinating, dysuria and frequency. Musculoskeletal: Negative for arthralgias, back pain, joint swelling and myalgias. Skin: Negative for rash and wound. Neurological: Negative for dizziness, tremors, seizures, syncope and headaches. Psychiatric/Behavioral: Negative for behavioral problems, self-injury and suicidal ideas. The patient is not nervous/anxious. Hematological: Does not bruise/bleed easily. Endocrine: Negative for polydipsia, polyphagia and polyuria. Allergic/Immunologic: Negative for environmental allergies and food allergies. PAST MEDICAL HISTORY Past Medical History: Diagnosis Date Allergic rhinitis 08/18/2023 Alopecia 08/18/2023 Anxiety and depression (CMS/HCC) 08/18/2023 meds in the past: sertraline, fluoxetine, trazodone, abilify Breakthrough bleeding on Nexplanon COVID-19 virus detected 06/19/2022 tested positive Depression (CMS/HCC) 08/18/2023 Hyperinsulinemia Insomnia Mood disorder (CMS/HCC) Morbid obesity with BMI of 40.0-44.9, adult (CMS/HCC) Polycystic ovary syndrome Torus palatinus Polycystic Ovarian Disease; pt had seen durability engineer and not a confirmed dx at this time. Past Surgical History: Procedure Laterality Date NO PAST SURGERIES OTHER SURGICAL HISTORY 08/2019 Nexplanon inserted (Dr Houston) family history includes Hypertension in her mother; No Known Problems in her father, maternal grandfather, paternal grandfather, paternal grandmother, and sister; Ovarian cancer in her maternal grandmother; blood clots in an other family member. OBJECTIVE: Visit Vitals BP 122/86 (BP Location: Left arm, Patient Position: Sitting, BP Cuff Size: Large adult long) Pulse 103 Temp 97.5 F (Temporal) Resp 19 Ht 5' 2 Wt 242 lb 6.4 oz SpO2 98% BMI 44.34 kg/m OB Status Recent Smoking Status Never BSA 2.19 m Physical Exam Vitals reviewed. Constitutional: General: She is not in acute distress. Appearance: Normal appearance. HENT: Head: Normocephalic and atraumatic. Right Ear: Tympanic membrane, ear canal and external ear normal. Left Ear: Tympanic membrane, ear canal and external ear normal. Nose: Nose normal. Mouth/Throat: Mouth: Mucous membranes are moist. Pharynx: No oropharyngeal exudate or posterior oropharyngeal erythema. Eyes: Extraocular Movements: Extraocular movements intact. Conjunctiva/sclera: Conjunctivae normal. Cardiovascular: Rate and Rhythm: Normal rate and regular rhythm. Pulses: Normal pulses. Heart sounds: Normal heart sounds. Pulmonary: Effort: Pulmonary effort is normal. Breath sounds: Normal breath sounds. Abdominal: General: Bowel sounds are normal. There is no distension. Palpations: Abdomen is soft. There is no mass. Tenderness: There is no abdominal tenderness. Musculoskeletal: General: Normal range of motion. Cervical back: Normal range of motion and neck supple. Skin: General: Skin is warm and dry. Capillary Refill: Capillary refill takes 2 to 3 seconds. Findings: No rash. Neurological: General: No focal deficit present. Mental Status: She is alert and oriented to person, place, and time. Psychiatric: Mood and Affect: Mood normal. Behavior: Behavior normal. Thought Content: Thought content normal. Judgment: Judgment normal. ASSESSMENT AND PLAN: No follow-ups on file. Problem List Items Addressed This Visit Morbid obesity with BMI of 40.0-44.9, adult (CMS/HCC) COVID-19 virus detected + at home test in last 14 days Feeling better still with laryngitis Laryngitis - Primary Tylenol, motrin prn Warm salt water gargles Add zithromax Fu if not better Relevant Medications azithromycin (Zithromax) 250 MG tablet documented in this encounter [facility] Evaluation note 12-09-2021 Note Date & Type Note Facility 12-09-2021 Evaluation note Encounter Date Diagnosis Assessment Notes Dec, Contact with and (suspected) exposure to other viral communicable diseases (ICD-10 - Z20.828) Dec, Allergic conjunctivitis of right eye (ICD-10 - H10.11) Use the eyedrops as prescribed until your symptoms improve. Continue take Zyrtec and DayQuil for your symptoms. Follow-up with your family physician if no improvement in 2 to 3 days. Dec, Allergic rhinitis, unspecified (ICD-10 - J30.9) Dec, Other Additional time spent conducting pre-visit phone call, screening for symptoms, instructions on social distancing, application and removal of PPE, and cleaning of examination room, equipment and supplies was preformed. Patient education given for testing methodology and results. Patient care instructions given in writting by [facility] document. [facility] Other Evaluation note 07-15-2021 Note Date & Type Note Facility 07-15-2021 Evaluation note Encounter Date Diagnosis Assessment Notes Jul, Encounter for screening for other viral diseases (ICD-10 - Z11.59) Jul, Other Additional time spent conducting pre-visit phone call, screening for symptoms, instructions on social distancing, application and removal of PPE, and cleaning of examination room, equipment and supplies was preformed. Patient education given for testing methodology and results. Patient care instructions given in writting by [facility] document. Additional time spent conducting pre-visit phone call, screening for symptoms, instructions on social distancing, application and removal of PPE, and cleaning of examination room, equipment and supplies was preformed. Patient education given for testing methodology and results. Patient care instructions given in writting by [facility] document. [facility] Other Evaluation note 05-16-2021 Note Date & Type Note Facility 05-16-2021 Evaluation note Encounter Date Diagnosis Assessment Notes May, Contact with and (suspected) exposure to other viral communicable diseases (ICD-10 - Z20.828) May, COVID-19 (ICD-10 - U07.1) Rapid COVID test performed in office today. Advised patient that test was positive. Instructed patient to isolate per CDC guidelines for 10 days from symptom onset. May return to work/activities outside home after isolation period as long as symptoms are improving and has been afebrile for 24 hours without use of antipyretic. Advised patient that health dept. will be in contact as results are reported to them. Advised patient that treatment of COVID is with viral supportive care. OTC cold medications as directed, Offered rx to help with cough, patient declines at this time. May call into UC if she changes her mind for rx. Tylenol/Motrin as needed for body aches/fever. Increase fluids and rest. Encouraged use of cool mist humidifier. Follow-up with PCP to advise of positive result and further management need. Immediate eval for SOB, difficulty, chest pain, fevers that do not break with antipyretic or any other concerning symptoms as reviewed on patient education handout. Patient verbalizes understanding and is agreeable to treatment plan. Patient left in stable condition May, Other Additional time spent conducting pre-visit phone call, screening for symptoms, instructions on social distancing, application and removal of PPE, and cleaning of examination room, equipment and supplies was preformed. Patient education given for testing methodology and results. Patient care instructions given in writting by [facility] document [facility] Other Evaluation note Note Date & Type Note Facility Evaluation note Diagnosis Laryngitis- Primary Acute laryngitis, without mention of obstruction Morbid obesity with BMI of 40.0-44.9, adult ([facility]) COVID-19 virus detected documented in this encounter [facility] History general Narrative - Reported Note Date & Type Note Facility History general Narrative - Reported Type Medical History PCOS (polycystic ovarian syndrom e) Surgical History wisdom teeth extract 2020 [facility] Other Summary Purpose Family History No Family History Records FoundNo Family History Records FoundNo Family History Records Found Advance Directives No Advanced Directives Records FoundNo Advanced Directives Records FoundNo Advanced Directives Records Found Additional Source Comments INFORMATION SOURCE (unrecogn ized section and content) DATE CREATED AUTHOR 12/25/2017 [facility] DATE CREATED AUTHOR AUTHOR'S ORGANIZ ATION 09/26/2022 [facility] DATE CREATED AUTHOR AUTHOR'S ORGANIZ ATION 08/19/2023 [facility] EPIC REASON FOR VISIT (unrecogniz ed section and content) #24 loss of taste and smell, sore throat, cough#7 ORANGE DODGE DART, EXPOSED, COVID Nurse Visit- Self PayB.LUE AVENGER, SINUS CONGESTION, COUGH, EYE IRRITATION Care Teams (unrecognized sec tion and content) Pulp Grinder Feeder Relationship Specialty Start Date End Date Lei Salmeron MD [address] [place] [phone] PCP - General Family Medicine 08/18/23 Ying Reid NP [address] [place] [phone] Nurse Practitioner Family Medicine 08/18/23 Pulp Grinder Feeder Relationship Specialty Start Date End Date Lei Salmeron MD [address] [place] [phone] PCP - General Family Medicine 08/18/23 Ying Reid NP [address] [place] [phone] Nurse Practitioner Family Medicine 08/18/23 FOR RECORDS PERTAINING TO PATIENTS WHO ARE OR HAVE BEEN ENROLLED IN A CHEMICAL DEPENDENCY/SUBSTANCEABUSE PROGRAM, SOME INFORMATION MAY BE OMITTED. This clinical summary was aggregated from multiple sources. Caution should be exercised in using it in the provision of clinical care. This summary normalizes information from multiple sources, and as a consequence, information in this document may materially change the coding, format and clinical context of patient data. In addition, data may be omitted in some cases. CLINICAL DECISIONS SHOULD BE BASED ON THE PRIMARY CLINICAL RECORDS. [facility]. provides no warranty or guarantee of the accuracy or completeness of information in this document.
[2023-09-08 01:49] LABS: Bilirubin Urine NEGATIVE (NEGATIVE); Blood Urine MODERATE (NEGATIVE); Clarity Urine CLEAR (CLEAR); Color Urine LT. YELLOW (YELLOW); Glucose Urine UA NEGATIVE (NEGATIVE); Ketones Urine NEGATIVE (NEGATIVE); Leukocyte Esterase Urine NEGATIVE (NEGATIVE); Nitrite Urine NEGATIVE (NEGATIVE); Protein Urine NEGATIVE (NEG/TRACE); Specific Gravity Urine <=1.005 (1.005-1.025); Urobilinogen Urine 0.2 EU/dL (0.2-1.0)
[2023-09-08 01:50] LABS: HCG Qualitative Urine* NEGATIVE (NEGATIVE)
[2023-09-08 02:00] LABS: Bacteria Urine NONE SEEN #/HPF (NONE SEEN); RBC Urine 0-2 #/HPF (0-2); WBC Urine 0-2 #/HPF (NONE SEEN)
[2023-09-08 02:01] LABS: Cast Seen? NONE SEEN #/LPF (NONE SEEN); Crystals Seen? Seen #/HPF (None Seen); Mucus Urine NONE SEEN (NONE SEEN); Squamous Epithelial Cell Urine FEW #/LPF (NONE/RARE); Uric Acid Crystals Urine FEW
--- NOTE | 2023-09-08 02:07 | ED_ITS ---
HPI - Abdominal Pain General Chief Complaint: Abdominal Pain Stated Complaint: CRAMPING Time Seen by Provider: 09/08/23 01:09 Source: patient Mode of arrival: walk-in Limitations: no limitations History of Present Illness HPI narrative: This 23-year-old female who had a miscarriage Last May presents for evaluation of lower abdominal/pelvic pain and cramping. She states she is lightly spotting. She started having cramping in her lower abdomen left greater than right earlier this evening. It has subsided somewhat at this point. She took an ibuprofen before coming to the emergency department. She doubts the possibility of . Her MAGNET MAKER is Dr. Hui. I reviewed her ultrasound from last May and it showed ovarian cyst with recommendation for close follow-up to resolution. He denies any heavy no bleeding. She is not having any dysuria. She is not on any control. Related Data Allergies Allergy/AdvReac Type Severity Reaction Status Date / Time No Known Drug Allergies Allergy Verified 09/08/23 01:03 Review of Systems ROS Status of ROS 10 or more systems reviewed and unremark able except as noted in history and below PFSH PFS Social History Smoking status: Never smoker Exam Narrative Exam Narrative: Nurses note and vital signs reviewed and patient is not hypoxic. Blood pressure is noted to be elevated 159/95 General: Overweight female resting comes when the stretcher, no respiratory distress she appears comfortable Skin: Warm, dry, no pallor noted. There is no rash noted. Head: Normocephalic, atraumatic Eye: Normal conjunctiva, no drainage, EOMI. PERRL Cardiovascular: Regular Rate and Rhythm S1S2, pulses are brisk and equal bilaterally Respiratory: Patient is in no distress, no accessory muscle use, lungs are clear to auscultation, no wheezing, rales or rhonchi Back: non-tender, no CVA tenderness bilaterally to percussion. GI: Obese, soft, nondistended, no reproducible tenderness in the right lower quadrant, over the bladder or in the left lower quadrant Musculoskeletal: The patient has no evidence of calf tenderness, no pitting edema, symmetrical pulses noted bilaterally Neurological: A&O x4, normal speech Psychiatric: Cooperative Constitutional Vital Signs, click to edit/add: Last Vital Signs Temp 98.2 F 09/08/23 01:00 Pulse 88 09/08/23 01:00 Resp 16 09/08/23 01:00 BP 159/95 H 09/08/23 01:00 Pulse Ox 99 09/08/23 01:00 O2 Del Method Room Air 09/08/23 01:00 Course Vital Signs Vital signs: Vital Signs Temperature 98.2 F 09/08/23 01:00 Pulse Rate 88 09/08/23 01:00 Respiratory Rate 16 09/08/23 01:00 Blood Pressure 159/95 H 09/08/23 01:00 Pulse Oximetry 99 09/08/23 01:00 Oxygen Delivery Method Room Air 09/08/23 01:00 Temperature 98.2 F 09/08/23 01:00 Pulse Rate 88 09/08/23 01:00 Respiratory Rate 16 09/08/23 01:00 Blood Pressure 159/95 H 09/08/23 01:00 Pulse Oximetry 99 09/08/23 01:00 Oxygen Delivery Method Room Air 09/08/23 01:00 MDM - Abdominal Pain MDM Narrative Medical decision making narrative: This 23-year-old female with a history of polycystic ovarian syndrome who was noted to have ovarian cysts and an ultrasound last May when she had a miscarriage presents for evaluation of lower abdominal cramping/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 She started her menstrual period with some light spotting earlier today. She denies any nausea or vomiting. She took an ibuprofen prior to coming emergency department and feels less pain. She states when she is having the pain it is greatest on the left side. She doubts the possibility of however to be certain prior to giving her medications a urine test was ordered and is negative. She was medicated in emergency department with IM Toradol, Zofran and 1 [place]. Due to her history of ovarian cysts and this pain she will be referred for an ultrasound later this morning. She has agreed to come back to the hospital around 7 AM for a follow-up ultrasound. The requisition recommends referral back to the emergency department for any sign of ovarian torsion or ovarian cyst. Patient and her boyfriend are in agreement with this plan. She was medicated wish to be discharged home so she could get a few hours asleep prior to coming back to the hospital for the ultrasound. Lab Data Attestation: I reviewed the patient's lab results. Labs: Lab Results 09/08/23 Range/Units 01:33 Urine Color Lt. yellow (YELLOW) Urine Clarity Clear (CLEAR) Urine pH 6.0 (5.0-9.0) Ur Specific [place] <=1.005 A (1.005-1.025) Urine Protein Negative (NEG/TRACE) mg/dL Urine Glucose (UA) Negative (NEGATIVE) mg/dL Urine Ketones Negative (NEGATIVE) mg/dL Urine Occult Blood Moderate A (NEGATIVE) Urine Nitrite Negative (NEGATIVE) Urine Bilirubin Negative (NEGATIVE) Urine Urobilinogen 0.2 (0.2-1.0) EU/dL Ur Leukocyte Esterase Negative (NEGATIVE) Urine RBC 0-2 (0-2) #/HPF Urine WBC 0-2 A (NONE SEEN) #/HPF Ur Squamous Epith Cells Few A (NONE/RARE) #/LPF Urine Crystals Seen A (None Seen) #/HPF Uric Acid Crystals Few Urine Bacteria None seen (NONE SEEN) #/HPF Urine Casts None seen (NONE SEEN) #/LPF Urine Mucus None seen (NONE SEEN) Urine HCG, Qual Negative (NEGATIVE) Discharge Plan Discharge Chief Complaint: Abdominal Pain Clinical Impression: Ovarian cyst, Dysmenorrhea Patient Disposition: Home, Self-Care Time of Disposition Decision: 01:59 Condition: Good Instructions: Ovarian Cyst (ED), Pelvic Pain (ED) Additional Instructions: Follow-up later this morning at 7 AM for an ultrasound. Drink plenty of fluids and do not empty her bladder prior to coming in for the ultrasound. Referrals: Ying Reid NP [Primary Care Provider] - 1 week Stand Alone Forms: Portal Instructions
[2023-09-08] MEDS: HYDROCODONE/ACET 5-325 MG TABLET 1 TAB PO (02:11)
[2023-09-08] MEDS: KETOROLAC TROMETHAMINE 60 MG/2 ML VIAL IM (02:11)
[2023-09-08] MEDS: ONDANSETRON 4 MG RAPDIS TABLET SL (02:11)
[2023-09-08 02:16] VITALS: BP 131/88; PULSE 92; RESP 18; O2SAT 98
== END 2023-09-08 02:16 | disposition home or self-care (01) ==
PROVIDERS: Emergency Provider Emergency Medicine; PCP Nurse Practitioner
DX: Z87.898 Personal history of other specified conditions (principal); N83.01 Follicular cyst of right ovary; N83.02 Follicular cyst of left ovary; N94.6 Dysmenorrhea, unspecified
CPT/HCPCS: 76830; 81001; 84703; 93975; 96372; 99284

== ENCOUNTER 2023-09-08 12:48 | Outpatient (OUT) | payer BC, SELFPAY ==
--- NOTE | 2023-09-08 12:53 | US_ITS ---
[place] [id number] Patient Name: LETICIA NUGENT MRN: [id number] date: 2000 Sex: F Assigned Patient Location: [facility] Current Patient Location: [facility] Accession/Order Number: [id number] Exam Date: 09/08/2023 13:00 Report Date: 09/08/2023 13:53 At the request of: KELLE MARKER Procedure: US pelvis transvaginal EXAMINATION: US pelvis transvaginal, US vas organ single comp HISTORY: Ovarian Cyst COMPARISON: No relevant comparison available. FINDINGS: The uterus is normal in size, contour and echotexture measuring 7.9 x 4.9 x 3.0 cm. Normal color Doppler flow. The uterus is anteflexed. Endometrium measures 6.8 mm, normal. The right ovary is normal measuring 3.0 x 2.1 1.8 cm. Normal color and Doppler flow. Multiple peripheral subcentimeter follicles The left ovary is normal in size, contour and echotexture measuring 2.7 x 1.8 x 1.4 cm. Normal color Doppler flow. Multiple peripheral subcentimeter follicles No free fluid US/US pelvis transvaginal IMPRESSION: Bilateral peripheral subcentimeter follicles, consider polycystic ovarian morphology Electronically authenticated by: PRAVIN ZHENG Date: 09/08/2023 13:53
--- NOTE | 2023-09-08 13:00 | US_ITS ---
[place] [id number] Patient Name: LETICIA NUGENT MRN: [id number] date: 2000 Sex: F Assigned Patient Location: [facility] Current Patient Location: [facility] Accession/Order Number: [id number] Exam Date: 09/08/2023 13:00 Report Date: 09/08/2023 13:53 At the request of: KELLE MARKER Procedure: US vas organ single comp EXAMINATION: US pelvis transvaginal, US vas organ single comp HISTORY: Ovarian Cyst COMPARISON: No relevant comparison available. FINDINGS: The uterus is normal in size, contour and echotexture measuring 7.9 x 4.9 x 3.0 cm. Normal color Doppler flow. The uterus is anteflexed. Endometrium measures 6.8 mm, normal. The right ovary is normal measuring 3.0 x 2.1 1.8 cm. Normal color and Doppler flow. Multiple peripheral subcentimeter follicles The left ovary is normal in size, contour and echotexture measuring 2.7 x 1.8 x 1.4 cm. Normal color Doppler flow. Multiple peripheral subcentimeter follicles No free fluid US/US vas organ single comp IMPRESSION: Bilateral peripheral subcentimeter follicles, consider polycystic ovarian morphology Electronically authenticated by: PRAVIN ZHENG Date: 09/08/2023 13:53
--- OUTSIDE RECORDS SUMMARY | 2023-09-08 13:07 | XMS_ITS | CCD ---
Author Name Unknown Address [address] [place] [address] Organization [facility] Care Team Providers Care Machine Setter Name Role Phone IRFAN, DHRUV Unavailable Unavailable ARCELIA FLETCHER () Unavailable Unavaila ARCELIA Baeza) Unavailable Unavaila ARCELIA Baeza) Unavailable Unavaila ble ARCELIA FLETCHER) Unavailable Unavaila ble ARCELIA FLETCHER) Unavailable Unavaila ble CARLOS OCHOA E Unavailable Unavailable IRFAN, DHRUV Unavailable Unavailable IRFAN, DHRUV Unavailable Unavailable IRFAN, DHRUV Unavailable Unavailable IRFAN, DHRUV Unavailable Unavailable Esther Beal Unavailable Crys Truong Unavailable Mitzi Obregon Unavailable KATHY REID Attending Unavailable KATHY REID Consulting Unavailable KATHY REID Primary Care Unavailable KATHY REID Admitting Unavailable Lei Salmeron MD Primary Care Provider [phone] Jeanette DOG RACES MANAGER, Ying Unavailable KELSY WALKER Attending Unavailable KELSY [...] Facility COVID Quick Testingon 2021 Result Negative [facility] Other Quick Fluon 12-09-2021 FLUAV Ab CF (S) [Titer] Negative [facility] Other FLUBV Ab CF (S) [Titer] Negative [facility] Other COVID Quick Testingon 2021 Result Negative [facility] Other COVID Quick Testingon 2020 Result Positive [facility] Other CNOVon 07-24-2017 CNOV Office Visit (DERMMN) -JOVANNASHANEKA ALBERTS ([id number]) 4 FDate Time Provider Department07/24/17 2:25 PM [...] 30 tablet Rfl: 5PNV NO.115/IRON FUMARATE/FA ( #040-RUMG-WRSWW ACID ORAL) Take 1 tabletby mouth once [...] kg (191 lb 3.2 oz) BMI 34.74 kg/b1Wrwwimd appearance: well appearing, alert, in no acute [...] with more than 50% of the total xoku-bm-cwdwgtbl of the visit in counseling / coordination [...] biotin forte- Cont counselingReferring Provider: DHRUV DICKERSON [[id number]]Allergies As of Date: 07/24/2017(No Known Allergies)Date Reviewed: 06/25/2017Reviewed by: Rosa Fair LPN - Fully AssessedReason for Visit: Hair Loss [933]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]Prescriptions as of 07/24/2017 Sig: CHOLECALCIFEROL (VITAMIN D3) * Take 5,000 Units by mouth onc* TRIAMCINOLONE ACETONIDE 10 MG* Intralesional kenalog 5 mg/ml* SPIRONOLACTONE 50 MG TABLET Take 1 tablet by mouth once d* #272-AHDU-GUZHU ACID* Take 1 tablet by mouth once [...] (around 10/22/2017).Follow-up and Disposition History RecordedEncounter Number: [id number] Status:Closed by DHRUV DICKERSON MD on 07/24/17 Normal [facility] PROGRESSon 07-24-2017 PROGRESS HNO ID: [id number] thor: Yonis Alanizice: (none)Author Type: PhysicianType: Progress [...] 30 tablet Rfl: 5PNV NO.115/IRON FUMARATE/FA ( #730-VTPB-ONRUY ACID ORAL) Take 1tablet by mouth once [...] kg (191 lb 3.2 oz) BMI 34.74 kg/f3Gcnglvp appearance: well appearing, alert, in no acute [...] visit, with more than 50% of the fbluazvhf-kr-tmhd time of the visit in counseling / coordination of care.I have seen and examined Ms. Nugent. I have discussed the case and themanagement of this patient's care with the Resident.I also have reviewed and agree with the assessment and plan as statedabove and agree with all of its relevant components.There were no procedures performed during this patient?s visit.Dhruv Dicekrson MD [facility] PROGRESS HNO ID: [id number] thor: Hilaria (Rd) SchneeService: (none)Author Type: Registered [...] protein: deli meat, 2 TBSP peanut butter, ivorian yogurt1 dairy: milk, string cheese, ivorian yogurt3. Dinner: Follow the healthy plate method [...] a single serving bag of chipsDinner: chicken rocio + broccoli + salad; spaghetti squash w/ [...] July 24, 2017 : 1:45 PM PAGER: [phone] Normal [facility] PROGRESSon 07-21-2017 PROGRESS HNO ID: [id number] thor: Rosa Fair LPNService: (none)Author Type: (none)Type: Progress NotesFiled: 07/21/2017 2:25 PMNote Text:>> Rosa Fair LPN 06/25/2017 3:58 PMKenalog given as prescribed. Dose count: 3 of 4Dose: 10mg/ml; Administered 5mg/ml to total 2 ml intralesional; Site:ScalpPatient tolerated well Normal [facility] CNOVon 06-25-2017 CNOV Office Visit (DERMIN) -JOVANNASHANEKA ([id number]) 02 FDate Time Provider Fxpcihvzsa43/21/17 2:20 PM NURSE DERM [facility] INDP DERMIN During your visit today, we recorded the following information about you:Rosa Fair LPN 07/21/2017 2:25 PM SignedANDgt;ANDgt; Rosa Fair LPN 06/25/2017 3:58 PMKenalog given as prescribed. Dose count: 3 of 4Dose: 10mg/ml; Administered 5mg/ml to total 2 ml intralesional; Site: ScalpPatient tolerated wellReferring Provider: DHRUV DICKERSON [[id number]]Allergies As of Date: 06/25/2017(No Known Allergies)Date Reviewed: [...] DISINTEGRATI* Take 2 capsules by mouth once* #149-WFCJ-KRCZD ACID* Take 1 tablet by mouth once d* MINOXIDIL 5 % TOPICAL SOLUTION Apply once daily to scalp CLOBETASOL 0.05 % SCALP SOLUT* Apply 8-10 drops daily to the*Problem List As Of Date: 06/25/2017(None) Status:Closed by ROSA FAIR LPN on 07/21/17 [facility] PROGRESSon 06-17-2017 PROGRESS HNO ID: [id number] thor: Rosa TOVARervice: (none)Author Type: (none)Type: Progress NotesFiled: 06/17/2017 1:30 PMNote Text:Kenalog given as prescribed. Dose count: 2 of 4Dose: 10mg/ml; Administered 5mg/ml to total 2 ml intralesional; Site:ScalpPatient tolerated wellRosa Fair LPN Normal [facility] 06-08-2017 [facility] Get Medical Advic e (DERMMN) -SHANEKA NUGENT ([id number]) 02 FDate Time Provider Ecgquwzjuw45/4/17 DHRUV DICKERSON During your visit today, we [...] 5:11 PM SignedLetter generated and faxed to [phone] As of Date: 06/08/2017(No Known Allergies)Date Reviewed: 05/27/2017Reviewed by: Rosa Fair LPN - Fully AssessedPrescriptions as of 06/08/2017 Sig: CHOLECALCIFEROL (VITAMIN D3) * Take 5,000 Units by mouth onc* TRIAMCINOLONE ACETONIDE 10 MG* Intralesional kenalog 5 mg/ml* SPIRONOLACTONE 50 MG TABLET Take 1 tablet by mouth once d* BIOTIN 5,000 MCG DISINTEGRATI* Take 2 capsules by mouth once* #983-RCON-KUIMY ACID* Take 1 tablet by mouth once d* MINOXIDIL 5 % TOPICAL SOLUTION Apply once daily to scalp CLOBETASOL 0.05 % SCALP SOLUT* Apply 8-10 drops daily to the*Problem List As Of Date: 06/08/2017(None)Letter TextDrMoira Ness [address] [phone] it May Concern:Shaneka Nugent is diagnosis with Alopecia areata. This is a conditionassociated with hair loss and baldness. Please allow Shaneka to wear a hatto cover her head to avoid embarrassment and being questioned from her schoolmates. The hat gives Shaneka self- confidence at school.Please call the office for any questions or concerns.Sincerely,Dr. Dhruv Yang Dhruv[address] [phone] 2016Whom it May Concern:Shaneka Nugent is diagnosis with Alopecia areata. This is a conditionassociated with hair loss and baldness. Please allow Shaneka to wear a hatto cover her head to avoid embarrassment and being questioned from her schoolmates. The hat gives Shaneka self- confidence at school.Please call the office for any questions or concerns.Sincerely,Electronic ally signedDhruv Dickerson MDEncounter Number: [id number] Status:Closed by RACHID ARGUELLO LPN on 06/12/17 [facility] CNOVon 05-27-2017 CNOV Office Visit (DERMIN) -SHANEKA NUGENT ([id number]) [facility] Ylbovtwdal00/22/17 1:00 PM NURSE DERM [facility] INDP DERMIN During your visit today, we recorded the following information about you:Rosa Fair LPN 06/17/2017 1:30 PM SignedKenalog given as prescribed. Dose count: 2 of 4Dose: 10mg/ml; Administered 5mg/ml to total 2 ml intralesional; Site: ScalpPatient tolerated wellRosa Fair LPNReferring Provider: DHRUV DIKCERSON [[id number]]Allergies As of Date: 05/27/2017(No Known Allergies)Date Reviewed: 05/27/2017Reviewed by: Rosa Fair LPN - Fully AssessedPrimary Visit Diagnosis:Alopecia areata [L63.9]Prescriptions as of 05/27/2017 Sig: CHOLECALCIFEROL (VITAMIN D3) * Take 5,000 Units by mouth onc* TRIAMCINOLONE ACETONIDE 10 MG* Intralesional kenalog 5 mg/ml* SPIRONOLACTONE 50 MG TABLET Take 1 tablet by mouth once d* BIOTIN 5,000 MCG DISINTEGRATI* Take 2 capsules by mouth once* #940-GOKV-HECSX ACID* Take 1 tablet by mouth once d* MINOXIDIL 5 % TOPICAL SOLUTION Apply once daily to scalp CLOBETASOL 0.05 % SCALP SOLUT* Apply 8-10 drops daily to the*Problem List As Of Date: 05/27/2017(None) Status:Closed by ROSA FAIR LPN on 06/17/17 [facility] Randa 05-22-2017 KATHY Telephone (DERMIN) -SHANEKA NUGENT ([id number]) 02 FDate Time Provider Hyuojuqdbu86/17/17 DHRUV DICKERSON During your visit today, we recorded the following information about you:Maria De Jesus Johnston Psr 05/22/2017 2:33 PM SignedAppointment scheduled per below requestI spoke with Mother who agrees to an appointment on May 27 with the dermnurse for intralesional injections to the scalp at 1 pm.?Dr Dickerson patient.?Kashif Cruz RNNovant Health Thomas[facility] Medical Centerember 2016 2:16 PM?Rosa Fishers INSTRUCTIONAL DESIGN SPECIALIST 05/22/2017 2:46 PM AddendumAllergies As of Date: 05/22/2017(No Known Allergies)Date Reviewed: 04/24/2017Reviewed by: Nora Gonzalez INSTRUCTIONAL DESIGN SPECIALIST - Fully AssessedReason for Visit: intralesional kenalog [Other]Prescriptions as of 05/22/2017 Sig: CHOLECALCIFEROL (VITAMIN D3) * Take 5,000 Units by mouth onc* TRIAMCINOLONE ACETONIDE 10 MG* Intralesional kenalog 5 mg/ml* SPIRONOLACTONE 50 MG TABLET Take 1 tablet by mouth once d* BIOTIN 5,000 MCG DISINTEGRATI* Take 2 capsules by mouth once* #387-WTKB-KVJQZ ACID* Take 1 tablet by mouth once d* MINOXIDIL 5 % TOPICAL SOLUTION Apply once daily to scalp CLOBETASOL 0.05 % SCALP SOLUT* Apply 8-10 drops daily to the*Problem List As Of Date: 05/22/2017(None) Status:Closed by KASHIF CRUZ RN on 05/26/17 Normal [facility] PROGRESSon 05-07-2017 PROGRESS HNO ID: [id number] thor: Arcelia Oliveros) NarasimhanService: (none)Author Type: PhysicianType: Progress NotesFiled: 05/07/2017 9:15 AMNote Text:[facility]CARE SYSTEMDivision of Pediatrics CLINIC NOTEPediatric and Adolescent EndocrinologyName: [...] 2016.Growth charts, records and laboratory studies from [facility] labwere reviewed at this visit.Prior [...] were not c/wPCOS. She will meet with family resource coordinator today. Continues on Spironolactone.Menses are regular. LMP [...] once daily. Disp: Rfl:PNV NO.115/IRON FUMARATE/FA ( #899-RKHL-MFHBF ACID ORAL) Take 1tablet by mouth once [...] on file.Social History: Lives with momReview of [place] HealthGENERAL: Negative for malaise, significant weight loss and [...] Normal female, dagoberto 5Laboratory Data 07/18/2015 at [facility]:Free T4: 1.08 ng/dl; TSH 3.53 uIU/mlFSH: 2.9 mIU/ml; LH 13.7 mIU/mlTestosterone 24 ng/dl; Free Testosterone 3.1 pg/mlLABS DONE [facility]/2017 [facility] 98 mg/dlInsulin 27.7 uIU/mlLH 3.16 mIU/ml; FSH 2.1 mIU/mlTestosterone 38 ng/dlFree Testosterone 9.9 pg/ml; % Free Testosterone 2.6 %TSH 0.73 uIU/ml; Free T4 1.18 ng/qqGpI3X 4.8%LDL 116 mg/dlHDL 36 mg/dlImaging: n/aImpression: Shaneka [...] Fletcher M.D.Pediatric and Adolescent EndocrinologyCC:Walker Avalos MD[address] [facility] [phone] The Parents of:Shaneka Hanleypert12[address] [facility] [address] [facility] CNOVon 04-24-2017 CNOV Office Visit (DERMMN) -JOVANNASHANEKA ALBERTS ([id number]) 02 FDate Time Provider Vlsxqdxjew98/20/17 1:20 PM CARLOS OCHOA During your visit [...] DISINTEGRATI* Take 2 capsules by mouth once* #328-EAEJ-JXYXM ACID* Take 1 tablet by mouth once [...] (around 07/25/2017).Follow-up and Disposition History RecordedEncounter Number: [id number] Status:Closed by CARLOS OCHOA DO on 04/25/17 Normal [facility] CNOV Office Visit (PENDMN) -JOVANNASHANEKA ALBERTS Teressa ([id number]) 02 FDate Time Provider Wzwxcxaucf49/20/17 1:00 PM ARCELIA FLETCHER) PENDMN During your visit today, we recorded the following information about you: Pulse Blood pressure Weight Height 76/minute 100/60 82.7 kg 1.576 m Last Period 04/20/17Sushaun Fletcher MD 05/07/2017 9:15 AM SignedTHE [facility] HEALTHCARE SYSTEMDivision of Pediatrics CLINIC NOTEPediatric and Adolescent EndocrinologyName: [...] inJ2016.Growth charts, records and laboratory studies from [facility] lab werereviewed at this visit.Prior Hx: Shaneka is otherwise healthy female with hx of hair lossand breakage for the past two years now. Initially saw Jordyn Barrios at [facility] inSeptember 2015, who diagnosed her with PCOS based on labs drawn in jul 2015.Treated with Metformin, Spironolactone and BCP. Pt followed up with Sophie therebut not much effect from the meds. Started seeing Derm at [facility], who recc topicalcreams and injection starting today.Puberty: started breast development at 9-10 years of age, menarche at 12 yearsof age. Periods have always been regular. Has no hx of facial hair/hair aroundthe nipples.Weight: Has gained weight in the past two years. Has never seen a family resource coordinator.Tries to get as much exercise as possible. [place] and plans [employer] starting end of January.Since last visit, she has met with dermatology and received scalp injections.Being followed for alopecia areata. Prior labs were not c/w PCOS. She will meetwith family resource coordinator today. Continues on Spironolactone.Menses are regular. LMP [...] once daily. Disp: Rfl:PNV NO.115/IRON FUMARATE/FA ( #286-EKKA-HEDDJ ACID ORAL) Take 1 tabletby mouth once [...] Normal female, dagoberto 5Laboratory Data 07/18/2015 at [facility]:Free T4: 1.08 ng/dl; TSH 3.53 uIU/mlFSH: 2.9 mIU/ml; LH 13.7 mIU/mlTestosterone 24 ng/dl; Free Testosterone 3.1 pg/mlLABS DONE 04/20/2017 [facility] 98 mg/dlInsulin 27.7 uIU/mlLH 3.16 mIU/ml; FSH 2.1 mIU/mlTestosterone 38 ng/dlFree Testosterone 9.9 pg/ml; % Free Testosterone 2.6 %TSH 0.73 uIU/ml; Free T4 1.18 ng/lkYoS4O 4.8%LDL 116 mg/dlHDL 36 mg/dlImaging: n/aImpression: Shaneka [...] Fletcher M.D.Pediatric and Adolescent EndocrinologyCC:Walker Avalos MD[address] [facility] [phone] The Parents of:Shaneka Gannon Xbceejt[address] [facility] [place] [address]Voiijxnzt Provider: ARCELIA FLETCHER) [[id number]]Allergies As of Date: 04/24/2017(No Known Allergies)Date Reviewed: 04/24/2017Reviewed by: Nora Gonzalez LPN - Fully AssessedReason for Visit: Follow Up [171]Primary Visit Diagnosis:Weight gain, abnormal [R63.5]Prescriptions as of 04/24/2017 Sig: CHOLECALCIFEROL (VITAMIN D3) * Take 5,000 Units by mouth onc* SPIRONOLACTONE 50 MG TABLET Take 1 tablet by mouth once d* BIOTIN 5,000 MCG DISINTEGRATI* Take 2 capsules by mouth once* #413-YKQN-JGDHC ACID* Take 1 tablet by mouth once [...] mouth once daily. Disc: Dosage adjustmentEncounter Number: [id number] Status:Closed by ARCELIA FLETCHER MD on 05/07/17 Normal [facility] CNOV Office Visit (PEDNTR) -SHANEKA NUGENT ([id number]) 02 FDate Time Provider Inquveyeff36/20/17 11:30 AM ARCHITECTURAL ENGINEERING TEACHER A120 PEDS MAIN PEDNTR During your visit today, we recorded the following information about you: Weight Height 82.7 kg 1.576 Arianna Willoughby, RD 04/28/2017 12:56 PM SignedTr[facility]ull [facility] Children'sPediatric Nutrition Support TeamProgress NotePatient Name: Shaneka NugentMRN: [id number] Care Physician: MEGAN Chaseate of : 2000 [...] NoTime: [address], CSP, LDPager: [phone] 201611:[address] 04/24/2017 12:05 PM [...] (cucumber, peppers, celery) and ranch dip yogurtPlain ivorian yogurt Add PB and 1/2 TBSP chocolate chips Vanilla extract + a few berriesDeli meat roll-ups with 1 piece cheeseGranola bars: look for less than 10 gm of sugarEdamameHummus + veggies or pretzels, crackers3 cups air popped popcornApple with 1 scoop of PBContinue the exercise - at least 30-60 minutes of walking each dayCheri Willoughby RD, CSP, [phone] Provider: ARCELIA FLETCHER) [[id number]]Allergies As of Date: 04/24/2017(No Known Allergies)Date Reviewed: 04/24/2017Reviewed by: Nora Gonzalez INSTRUCTIONAL DESIGN SPECIALIST - Fully AssessedReason for Visit: Reassessment [674]Primary Visit Diagnosis:Symptoms concerning nutrition, metabolism, and development [R63.8] Other Visit Diagnoses:Body mass index, pediatric, 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 PROGRESSon 04-24-2017 PROGRESS HNO ID: [id number] thor: Carlos Kitchenrvice: (none)Author Type: PhysicianType: Progress [...] site(s): Total of 2cc's injected.Total injections: [facility] PROGRESS HNO ID: [id number] thor: Carlos Kitchenrvice: (none)Author Type: PhysicianType: Progress [...] time devoted topatient counseling.Carlos Ochoa, DO Normal [facility] PROGRESS HNO ID: [id number] thor: Cheri (Joseph) James: (none)Author Type: Registered DietitianType: Progress NotesFiled: 04/28/2017 12:56 PMNote Text:[facility] Children'sPediatric Nutrition Support TeamProgress NotePatient Name: Shaneka Gannon JovannaMRN: [id number] Care Physician: Walker Avalos MDDate of : [...] NoTime: 15 minutesJennifer JOSEPH Willoughby, CSP, LDPager: [phone] 201611:53 AM Normal [facility] CNOVon 02-25-2017 CNOV Office Visit (DERMMN) -SHANEKA NUGENT ([id number]) 02 FDate Time Provider Department02/25/17 2:00 PM [...] Take 1 tablet by mouth once d* #856-RJPV-NNMOI ACID* Take 1 tablet by mouth once [...] 02/25/2017(None) Status:Closed by BLANE AYALA on 02/25/17 [facility] PROGRESSon 02-25-2017 PROGRESS HNO ID: [id number] thor: Blane (Constance) GUY Ayalaervice: (none)Author Type: [...] see physician for follow Leeann Ayala LPN [facility] Dru 01-28-2017 CELIA Office Visit (DERMMN) -SHANEKA NUGENT ([id number]) 02 FDate Time Provider Department01/28/17 2:00 PM [...] Take 1 tablet by mouth once d* #392-CSVF-WQBFW ACID* Take 1 tablet by mouth once [...] Status:Closed by NATI URIBE LPN on 01/28/17 [facility] PROGRESSon 01-28-2017 PROGRESS HNO ID: [id number] thor: Nati TOVARervice: (none)Author Type: (none)Type: Progress [...] with nurse for injectionsNati Uribe LPN Normal [facility] SURGICAL PATHOLOGYon 017 SURGICAL PATHOLOGY Specimen #: [id number]*Submitting Physician: DHRUV DICKERSON FINAL DIAGNOSISA. Skin, right upper scalp, punch biopsy ([id number], 06/14/15) -Pauciinflammatory non-scarring alopecia (see comment).MP/keegan/01/27/17 COMMENTSections [...] Paulino M.D.(Electronic Signature) SPECIMEN SUBMITTEDA: 5 SLIDES ([id number]; 3, 5, 7, 9, 10) CLINICAL DATANone provided. of Report: 01/27/2017Date of Procedure: 01/27/2017Date of Receipt: 01/27/2017Submitted by: DHRUV DICKERSONLocation: W47Lcpzcbpsup interpretation performed at [facility], [address],[facility] [address]. Normal [facility] Comment on above: Performed By: #### PATHS ####[facility] [place], [place] [phone] CNOVon 01-02-2017 CNOV Office Visit (PENDMN) -SHANEKA NUGENT ([id number]) 02 FDate Time Provider Department01/02/17 11:30 AM [...] mins.Arcelia Fletcher MD 01/08/2017 11:56 AM SignedTHE [facility]ALTHCARE SYSTEMDivision of Pediatrics CLINIC NOTEPediatric and Adolescent EndocrinologyName: [...] 16 year old 6 month old female, [facility] for possible PCOS. The consultation wasrequested by mom.Growth charts, records and laboratory studies provided by Walker Avalos MDwere reviewed at this visit.Shaneka is otherwise healthy female with hx of hair loss and breakagefor the past two years now. Initially saw Jordyn Barrios at [facility] in September 2015, whodiagnosed her with PCOS based on labs drawn in jul 2015. Treated withMetformin, Spironolactone and BCP. Pt followed up with Sophie there but not mucheffect from the meds. Started seeing Derm at [facility], who recc topical creams andinjection starting today.Puberty: started breast development at 9-10 years of age, menarche at 12 yearsof age. Periods have always been regular. Has no hx of facial hair/hair aroundthe nipples.Weight: Has gained weight in the past two years. Has never seen a family resource coordinator.Tries to get as much exercise as possible. [...] mouth once daily.Disp: Rfl:PNV NO.115/IRON FUMARATE/FA ( #623-LLHT-MJYPN ACID ORAL) Take 1 tabletby mouth once [...] (Z= -0.61) based on CDC 2-20 Years licgkym-zzv-hvz data using vitalsfrom 01/02/2017.98 %ile (Z= 1.98) based on CDC 2-20 Years ldwswi-lrr-eax data using vitals from01/02/2017.98 %ile (Z= 2.16) [...] dagoberto 5Laboratory Data reviewed with patient07/18/2015 at [facility]:Free T4: 1.08 ng/dl; TSH 3.53 [...] on counseling and coordinationof care.CC:Walker Avalos MD[address] [facility] [phone] The Parents of:Shaneka Gannon Bhjvemk23[address] [address]Ezvpuwshaun Fletcher MD 01/02/2017 1:05 PM Signed1. Stop Metformin and Control Pill2. Weight Loss efforts3. See me in 6 monthsReferring Provider: SELF [[id number]]Allergies As of Date: 01/02/2017(No Known Allergies)Date Reviewed: 01/02/2017Reviewed by: Nora Gonzalez INSTRUCTIONAL DESIGN SPECIALIST - Fully AssessedReason for Visit: Consult [502]Primary Visit Diagnosis:Weight gain, abnormal [R63.5] Other Visit Diagnosis:Alopecia [L65.9]Order(s):GLUCOSE FASTING BLD [SQGLF] Order #: [id number] FUTURE INSULIN ASSAY BLOOD [SQINSULN] Order #: [id number] FUTURE LIPID PANEL BASIC [SQLIPB] Order #: [id number] FUTURE HGB A1C [MXEMC7C] Order #: [id number] FUTURE T4 FREE/FREE THYROX [SQFT4] Order #: [id number] FUTURE TSH BLD [SQTSH] Order #: [id number] FUTURE TESTOSTERONE, FREE AND TOTAL [SQFTESTO] Order #: [id number] FUTURE LUTEINIZING HORMONE [SQLH] Order #: [id number] FUTURE FSH BLD [SQFSH] Order #: [id number] FUTUREPrescriptions as of 01/02/2017 Sig: TRIAMCINOLONE ACETONIDE [...] Take 1 tablet by mouth once d* #856-YWGH-FSPUQ ACID* Take 1 tablet by mouth once d* MINOXIDIL 5 % TOPICAL SOLUTION Apply once daily to scalp CLOBETASOL 0.05 % SCALP SOLUT* Apply 8-10 drops daily to the*Problem List As Of Date: 01/02/2017(None) Other instructions from your clinician: 1. Stop Metformin and Control Pill 2. Weight Loss efforts 3. See me in 6 monthsVisit Notes:>> Stacia (Organ Recovery Coordinator) LylaCNOSTANCE ThuJan 02, 2017 11:52 AM Status: SignedPatient is here with mother today. Time required to prepare patient andparent/s for examination greater than 5 mins.Medications Discontinued During This Encounter biotin 5 mg caspule 01/02/2017 Class: Historical Med Route: ORAL Sig: Take 5 mg by mouth once daily. Disc: Dosage adjustmentLetter Jtli[address] [facility]/[address] [address]Rsjgrk: [phone] Ynpkoxzjyhxh: 850/ 373-KIDS(0120)January 08, 2017Walker Avalos MD[address] [place], [place] [address]Jebbx: [phone]: [phone]: Shaneka Gannon DayanpertDOB: 2000DATE OF SERVICE: 01/02/2017Dear Dr. Avalos:I had the pleasure of seeing your patient, Shaneka Nugent on 01/02/2017.Enclosed please find my encounter note.If you have any questions or concerns, please do not hesitate to contact [facility] [phone] .Very truly yours,Electronically signed by Arcelia Fletcher M.D.[place] for Pediatric EndocrinologyEncl (Encounter note)THE [facility]ALTHCARE SYSTEMDivision of PediatricsCLINIC NOTEPediatric and Adolescent EndocrinologyName: Shaneka [...] years now. [facility], who diagnosed her with PCOS based on labs drawn in jul 2015.Treated with Metformin, Spironolactone and BCP. Pt followed up with Endothere but not much effect from the meds. Started seeing Derm at [facility], who recctopical creams and injection starting today.Puberty: started breast development at 9-10 years of age, menarche at 12years of age. Periods have always been regular. Has no hx of facial hair/hairaround the nipples.Weight: Has gained weight in the past two years. Has never seen a family resource coordinator.Tries to get as much exercise as possible. [...] mouth oncedaily. Disp: Rfl:PNV NO.115/IRON FUMARATE/FA ( #907-DOIQ-LHZBQ ACID ORAL) Take 1tablet by mouth once [...] meters squared.27 %ile (Z= -0.61) based on [facility] NAMED [facility] 2-20 Years ozewvuq-wyu-rdk data using vitalsfrom 01/02/2017.98 %ile (Z= 1.98) based on CDC 2-20 Years rddznj-pbt-peu data using vitalsfrom 01/02/2017.98 %ile (Z= 2.16) [...] dagoberto 5Laboratory Data reviewed with patient07/18/2015 at [facility]:Free T4: 1.08 ng/dl; TSH 3.53 [...] Metformin and Spironolactone, continue with BCP for now.[place] diet and lifestyle changes. In 4-6 months, [...] on counseling andcoordination of care.CC:Walker Avalos MD433 [facility] [place] [phone] The Parents of:Shaneka Nugent[address] Che BrownCentral [facility] Medical Centerjon [place] [address]Mpudkqqnp Number: [id number] Status:Closed by ARCELIA FLETCHER MD on 01/08/17 Normal [facility] CNOV Office Visit (PEDNTR) -SHANEKA NUGENT ([id number]) 02 FDate Time Provider Department01/02/17 11:00 AM ARCHITECTURAL ENGINEERING TEACHER A120 PEDS MAIN PEDNTR During your visit today, we recorded the following information about you:Stacia Arita LPN, INSTRUCTIONAL DESIGN SPECIALIST 01/02/2017 12:28 PM SignedIntake information documented in [...] January 02, 2017 : 12:35 PM PAGER: [phone] 01/02/2017 12:58 PM SignedHave a [...] etc most days ofthe weekCheri Willoughby RD, [facility], [phone] Provider: ARCELIA FLETCHER) [[id number]]Allergies As of Date: 01/02/2017(No Known Allergies)Date Reviewed: [...] Take 1 tablet by mouth once d* #025-CNDM-MBWKT ACID* Take 1 tablet by mouth once [...] the week Cheri Willoughby, RD, CSP, LD [phone] Notes:>> Stacia (Constance) CONSTANCE Arita ThuJan 02, 2017 12:28 PM Status: SignedIntake information documented in the prior visit with Dr. Augustin. Status:Closed by CHERI WILLOUGHBY on 01/02/17 [facility] CNOV Office Visit (DERMMN) -JOVANNASHANEKA Gannon ([id number]) 02 [facility] Time Provider Department01/02/17 10:20 AM DHRUV DICKERSON [...] mouth once daily. Disp:Rfl:PNV NO.115/IRON FUMARATE/FA ( #247-JEVJ-AIMRU ACID ORAL) Take bymouth. Disp: Rfl:Minoxidil 5 [...] region especially left and right parietalareas (RANDgt;L). Whately hair distribution very thin with small excoriated [...] signed by patient/parent to [facility] Senior Brand Manager- Continue topical minoxidil ANDamp; clobetasol daily; biotin 5mg dailyFollow-up: 3 monthsPRABHJOT Bluntediatric Resident PGY-2CSouthern [facility]11:22 AM, 01/02/17I have seen [...] Take 1 tablet by mouth once d* #965-LKGM-GBGYL ACID* Take 1 tablet by mouth once [...] by DHRUV DICKERSON MD on 01/02/17 Normal [facility] PROGRESSon 01-02-2017 PROGRESS HNO ID: [id number] thor: Cheri (Joseph) WilloughbyService: (none)Author Type: Registered DietitianType: Progress NotesFiled: 01/02/2017 4:08 PMNote Text:INITIAL ASSESSMENT VISITPEDIATRIC NUTRITIONSERVICE DATE: 01/02/2017SERVICE TIME: 12:35 PMReason for visit/diagnosis: weight managementDiagnosed/Consulted by: Dr Monteroutrition Assessment:Shaneka Nugent presents today with a BMI/age >95th%ile, indicatingobesity; z-score shows no evidence of malnutrition. BMI 120% of deo08hy%ile on the extreme BMI growth charts, which [...] January 02, 2017 : 12:35 PM PAGER: [phone] Normal [facility] PROGRESS HNO ID: [id number] thor: Arcelia Oliveros) RadhamesasimhanService: (none)Author Type: PhysicianType: Progress NotesFiled: 01/08/2017 11:56 AMNote Text:THE [facility]ALTHCARE SYSTEMDivision of Pediatrics CLINIC NOTEPediatric and Adolescent EndocrinologyName: [...] years now. [facility], who diagnosed her with PCOS based on labs drawn in jul 2015.Treated with Metformin, Spironolactone and BCP. Pt followed up with Endothere but not much effect from the meds. Started seeing Derm at [facility] topical creams and injection starting today.Puberty: [...] mouth oncedaily. Disp: Rfl:PNV NO.115/IRON FUMARATE/FA ( #741-PJAR-WWONU ACID ORAL) Take 1tablet by mouth once [...] (Z= -0.61) based on CDC 2-20 Years elqlijx-wnh-ihi data usingvitals from 01/02/2017.98 %ile (Z= 1.98) based on CDC 2-20 Years znklan-llc-eca data using vitalsfrom 01/02/2017.98 %ile (Z= 2.16) [...] dagoberto 5Laboratory Data reviewed with patient07/18/2015 at [facility]:Free T4: 1.08 ng/dl; TSH 3.53 [...] Metformin and Spironolactone, continue with BCP for now.[place] diet and lifestyle changes. In 4-6 months, [...] on counseling andcoordination of care.CC:Walker Avalos MD433 [facility] [phone] The Parents of:Shaneka Nug[address] [place] [address] Normal [facility] PROGRESS HNO ID: [id number] thor: KEVIN Alanizervice: (none)Author Type: PhysicianType: Progress [...] once daily. Disp: Rfl:PNV NO.115/IRON FUMARATE/FA ( #141-ZYMK-LWPEZ ACID ORAL) Take bymouth. Disp: Rfl:Minoxidil 5 [...] region especially left and rightparietal areas (R>L). Whately hair distribution very thin with smallexcoriated lesion [...] signed by patient/parent to [facility] Senior Brand Manager- Continue topical minoxidil AND clobetasol daily; biotin 5mg dailyFollow-up: 3 monthsPRABHJOT Bluntediatric Resident PGY-2CSouthern [facility] Children[facility]11:22 AM, 01/02/17I have seen and examined Ms. Nugent. I have discussed the case and themanagement of this patient's care with the Resident.I also have reviewed and agree with the assessment and plan as statedabove and agree with all of its relevant components.There were no procedures performed during this patient?s visit.Dhruv Dickerson MD [facility] Vital Signs Date Time Vital Sign Value Performing Clinician Facility 08-18-2023 09:25-0500 Body height 157.5 cm Yingel Whiteholz DOG RACES MANAGER Work Phone: [facility] 08-18-2023 09:25-0500 Body mass index (BMI) [Ratio] 44.34 kg/m2 Ying Aichholz DOG RACES MANAGER Work Phone: [facility] 08-18-2023 09:25-0500 Body temperature 97.5 [degF] Ying Aichholz DOG RACES MANAGER Work Phone: [facility] 08-18-2023 09:25-0500 Body weight 109.95 kg Ying Aichholz DOG RACES MANAGER Work Phone: [facility] 08-18-2023 09:25-0500 Diastolic blood pressure 86 mm[Hg] Ying Aichholz DOG RACES MANAGER Work Phone: [facility] 08-18-2023 09:25-0500 Heart rate 103 /min Ying Aichholz DOG RACES MANAGER Work Phone: [facility] 08-18-2023 09:25-0500 Respiratory rate 19 /min Ying Aichholz DOG RACES MANAGER Work Phone: [facility] 08-18-2023 09:25-0500 SaO2% (BldA) [Mass fraction] 98 % Ying Aichholz DOG RACES MANAGER Work Phone: [facility] 08-18-2023 09:25-0500 Systolic blood pressure 122 mm[Hg] Ying Aichholz DOG RACES MANAGER Work Phone: [facility] 12-09-2021 18:25-0400 Body height 157.48 cm Mitzi Obregon Other [facility] Other 12-09-2021 18:25-0400 Body mass index (BMI) [Ratio] 40.23 kg/m2 Mitzi Obregon Other [facility] Other 12-09-2021 18:25-0400 Body temperature 98 [degF] Mitzi Obregon Other [facility] Other 12-09-2021 18:25-0400 Body weight 99.79 kg Mitzi Obregon Other [facility] Other 12-09-2021 18:25-0400 Respiratory rate 18 /min Mitzi Obregon Other [facility] [employer] Other 12-09-2021 18:25-0400 SaO2% (BldA) [Mass fraction] 98 % Mitzi Obregon Other [facility] Other 05-16-2021 15:45-0500 Body height 185.42 cm Esther Ginty Other [facility] Other 05-16-2021 15:45-0500 Body mass index (BMI) [Ratio] 23.09 kg/m2 Esther Ginty Other [facility] Other 05-16-2021 15:45-0500 Body temperature 98.7 [degF] Esther Ginty Other [facility] Other 05-16-2021 15:45-0500 Body weight 79.38 kg Esther Ginty Other [facility] Other 05-16-2021 15:45-0500 Respiratory rate 18 /min Esther Ginty Other [facility] Other 05-16-2021 15:45-0500 SaO2% (BldA) [Mass fraction] 96 % Esther Lian Other [facility] [employer] Other Encounters Encounter Date Encounter Type Care Provider Facility Start: 08-18-2023 Bamboo flowsheet Ying Reid DOG RACES MANAGER Work Phone: [facility] Start: 08-18-2023 Bamboo flowsheet Ying Whiterasalfonso DOG RACES MANAGER Work Phone: [facility] Start: 08-18-2023 End: 08-18-2023 ambulatory YING WHITERASAlfonso Not Available Start: 08-18-2023 End: 08-18-2023 Office outpatient visit 15 minutes Ying Whiterasalfonso DOG RACES MANAGER Work Phone: [facility] Comment on above: Laryngitis (Primary Dx); Morbid obesity with BMI of 40.0-44.9, adult (CMS/[facility]); COVID-19 virus detected Start: 07-16-2023 End: 07-16-2023 ambulatory PENOLA P WALKER Not Available Start: 07-09-2023 End: 07-09-2023 ambulatory PENOLA P WALKER Not Available Start: 06-01-2023 End: 06-01-2023 ambulatory PENOLA WALKER Not Available Start: 08-05-2022 End: 08-06-2022 ambulatory LEAD QUALITY TECHNICIAN YING BAYLEECarleyOMERO Facility: Start: 12-09-2021 End: 12-09-2021 ambulatory Mitzi Obregon Other [employer] Other Start: 12-09-2021 Office outpatient visit 15 minutes Mitzi Obregon [facility] Start: 07-15-2021 End: 07-15-2021 ambulatory Crys Truong Other [employer] Other Start: 07-15-2021 Office outpatient visit 5 minutes Crys Truong [facility] Start: 05-16-2021 End: 05-16-2021 ambulatory Esther Beal Other [facility] [employer] Other Start: 05-16-2021 Office outpatient visit 15 minutes Esther Beal [facility] Start: 07-24-2017 End: 07-24-2017 Ambulatory [facility] Start: 06-25-2017 End: 06-25-2017 Ambulatory [facility] Start: 05-27-2017 End: 05-27-2017 Ambulatory [facility] Start: 04-24-2017 End: 04-24-2017 Ambulatory CARLOS OCHOA [facility] Start: 04-24-2017 End: 04-24-2017 [facility] Start: 02-25-2017 End: 02-25-2017 Ambulatory [facility] Start: 01-28-2017 End: 01-28-2017 Ambulatory [facility] Start: 01-02-2017 End: 01-02-2017 [facility] Start: 01-02-2017 End: 01-07-2017 Ambulatory [facility] Plan of Treatment Date Care Activity Detail Author Start: 08-18-2023 End: 08-18-2023 Patient encounter procedure 08/18/2023 9:20 AM EST Office Visit [facility] [address] [place] [address] Ying Reid NP [address] [place] [address] Arrived [facility] Comment on above: Arrived Start: 03-06-2023 Influenza [facility] Immunization Date Immunization Notes Care Provider Fa cility 04-06-2019 hepatitis A vaccine, pediatric/adolescent dosage, 2 dose schedule Ying Reid DOG RACES MANAGER Work Phone: [facility] 11-04-2018 meningococcal B vacc ine, fully recombinant Ying Reid DOG RACES MANAGER Work Phone: [facility] 10-05-2018 hepatitis A vaccine, pediatric/adolescent dosage, 2 dose schedule Ying Jeanette DOG RACES MANAGER Work Phone: [facility] 10-05-2018 meningococcal B vacc ine, fully recombinant Ying Jeanette DOG RACES MANAGER Work Phone: [facility] 10-05-2018 meningococcal polysaccharide (groups A, C, Y and W-135) diphtheria toxoid conjugate vaccine (MCV4P) Ying Jeanette DOG RACES MANAGER Work Phone: [facility] 02-08-2015 diphtheria, tetanus toxoids and acellular pertussis vaccine Ying Jeanette DOG RACES MANAGER Work Phone: [facility] 02-24-2008 diphtheria, tetanus toxoids and acellular pertussis vaccine Ying Jeanette DOG RACES MANAGER Work Phone: [facility] 02-24-2008 measles, mumps and r ubella virus vaccine Ying Jeanette DOG RACES MANAGER Work Phone: [facility] 02-24-2008 poliovirus vaccine, inactivated Ying Jeanette DOG RACES MANAGER Work Phone: [facility] 02-24-2008 varicella virus vaccine Ying Jeanette DOG RACES MANAGER Work Phone: [facility] 10-30-2003 varicella virus vaccine Ying Jeanette DOG RACES MANAGER Work Phone: [facility] 07-14-2003 measles, mumps and r ubella virus vaccine Ying Jeanette DOG RACES MANAGER Work Phone: [facility] 03-01-2003 diphtheria, tetanus toxoids and acellular pertussis vaccine Ying Jeanette DOG RACES MANAGER Work Phone: [facility] 03-01-2003 haemophilus influenz ae type b vaccine, PRP-OMP conjugate Ying Reid DOG RACES MANAGER Work Phone: [facility] 03-01-2003 hepatitis B vaccine, adult dosage Ying Reid DOG RACES MANAGER Work Phone: [facility] 03-01-2003 pneumococcal conjuga te vaccine, 13 valent Ying Aichholz DOG RACES MANAGER Work Phone: [facility] 03-01-2003 poliovirus vaccine, inactivated Ying Aichholz DOG RACES MANAGER Work Phone: [facility] 2002 diphtheria, tetanus toxoids and acellular pertussis vaccine Ying Aichholz DOG RACES MANAGER Work Phone: [facility] 2002 haemophilus influenz ae type b vaccine, PRP-OMP conjugate Ying Aichholz DOG RACES MANAGER Work Phone: [facility] 2002 hepatitis B vaccine, adult dosage Ying Aichholz DOG RACES MANAGER Work Phone: [facility] 2002 pneumococcal conjuga te vaccine, 13 valent Ying Aichholz DOG RACES MANAGER Work Phone: [facility] 2002 poliovirus vaccine, inactivated Ying Aichholz DOG RACES MANAGER Work Phone: [facility] 2002 diphtheria, tetanus toxoids and acellular pertussis vaccine Ying Aichholz DOG RACES MANAGER Work Phone: [facility] 2002 haemophilus influenz ae type b vaccine, PRP-OMP conjugate Ying Aichholz DOG RACES MANAGER Work Phone: [facility] 2002 hepatitis B vaccine, adult dosage Ying Aichholz DOG RACES MANAGER Work Phone: [facility] 2002 pneumococcal conjuga te vaccine, 13 valent Ying Aichholz DOG RACES MANAGER Work Phone: [facility] 2002 poliovirus vaccine, inactivated Ying Aichholz DOG RACES MANAGER Work Phone: [facility] Payers Date Payer Category Payer Private Health Insurance [id number] 2022 Unknown BCBS BCBS [id number] 2022-[facility] [phone] [address] [place] [address] [id number] 2002 Unknown [id number] 2002 Unknown [id number] .1259 2002 Unknown [id number] .1259 2002 Unknown [id number] .1259 2002 Unknown [id number] .1259 2002 Unknown [id number] .1259 1959 Unknown [id number] Private Health Insurance [id number] Unknown [id number] Social History Date Type Detail Facility Start: 08-04-2023 End: 08-18-2023 Sex Assigned At [facility] Start: 11-26-2022 Tobacco smoking status [facility] Never sm oked tobacco [facility] Start: [...] palatinus Polycystic Ovarian Disease; pt had seen tortilla maker and not a confirmed dx at this [...] 250 MG tablet documented in this encounter [facility] Evaluation note 12-09-2021 Note Date [...] Patient care instructions given in writting by [employer] [facility] document. [employer] Other Evaluation note 07-15-2021 Note Date & [...] Patient care instructions given in writting by [employer] [facility] document. Additional time spent conducting pre-visit phone call, screening for symptoms, instructions on social distancing, application and removal of PPE, and cleaning of examination room, equipment and supplies was preformed. Patient education given for testing methodology and results. Patient care instructions given in writting by [employer] [facility] document. [employer] Other Evaluation note 05-16-2021 Note Date & [...] Patient care instructions given in writting by [facility] Care At Home document [employer] Other Evaluation note Note Date & Type Note Facility Evaluation note Diagnosis Laryngitis- Primary Acute laryngitis, without mention of obstruction Morbid obesity with BMI of 40.0-44.9, adult ([facility]) COVID-19 virus detected documented in this encounter [facility] History general Narrative - Reported Note Date & Type Note Facility History general Narrative - Reported Type Medical History PCOS (polycystic ovarian syndrom e) Surgical History wisdom teeth extract 2020 [employer] Other Summary Purpose Family History No Family History Records FoundNo Family History Records FoundNo Family History Records Found Advance Directives No Advanced Directives Records FoundNo Advanced Directives Records FoundNo Advanced Directives Records Found Additional Source Comments INFORMATION SOURCE (unrecogn ized section and content) DATE CREATED AUTHOR 12/25/2017 [facility] DATE CREATED AUTHOR AUTHOR'S ORGANIZ ATION 09/26/2022 [facility] DATE CREATED AUTHOR AUTHOR'S ORGANIZ ATION 08/19/2023 [facility]ists EPIC REASON FOR VISIT (unrecogniz ed section and content) #24 loss of taste and smell, sore throat, cough#7 ORANGE DODGE DART, EXPOSED, COVID Nurse Visit- Self PayB.LUE AVENGER, SINUS CONGESTION, COUGH, EYE IRRITATION Care Teams (unrecognized sec tion and content) Machine Setter Relationship Specialty Start Date End Date Lei Salmeron MD [address] [place] [phone] PCP - General Family Medicine 08/18/23 Ying Reid NP [address] [place] [phone] Nurse Practitioner Family Medicine 08/18/23 Machine Setter Relationship Specialty Start Date End Date Lei Salmeron MD [address] [place] [phone] PCP - General Family Medicine 08/18/23 Ying Reid NP [address] [place] [phone] Nurse Practitioner Family Medicine 08/18/23 FOR RECORDS [...] BE BASED ON THE PRIMARY CLINICAL RECORDS. [facility]. provides no warranty or guarantee of the accuracy or completeness of information in this document.
== END 2023-09-08 12:49 | disposition home or self-care (01) ==
LOC: RAD 12:49
PROVIDERS: PCP Nurse Practitioner; Visit Provider Emergency Medicine
DX: Z87.898 Personal history of other specified conditions (principal); N83.01 Follicular cyst of right ovary; N83.02 Follicular cyst of left ovary
CPT/HCPCS: 76830; 93975

== ENCOUNTER 2023-11-20 10:53 | Emergency (ER) | payer OTHER, BC, MEDICAID, SELFPAY ==
[2023-11-20 10:58] VITALS: BP 137/98; PULSE 81; TEMP 36.8; O2SAT 98; BMI 40.2
--- NOTE | 2023-11-20 13:09 | ED.EAR1 ---
HPI - Ear Problem General Chief complaint: Ear Stated complaint: EAR PAIN Time Seen by Provider: 11/20/23 13:05 Source: patient Mode of arrival: walk-in Limitations: no limitations History of Present Illness HPI Narrative: Patient is a 23-year-old female presents to the ER with concerns of bilateral ear fullness, itching that has been present for several weeks. Patient notes when she bends forward she feels lightheaded dizzy and is lately felt nauseous. Patient is seeing a wood processing worker for an androgen condition. States her periods are irregular and she has been experiencing urinary frequency but took a negative test yesterday. She reports no fever or chills, no nasal congestion or sore throat. Patient has not tried any [id number] medication other than Zyrtec which provided no relief. Patient appears nontoxic in no acute distress. MD Complaint: Denies ear pain (Denies Pain notes fullness. ) Location: bilateral Associated symptoms ear: Denies fever, decreased hearing or tinnitus Related Data Home Medications ?Medication ?Instructions ?Recorded ?Confirmed No Known Home Medications 11/20/23 11/20/23 Previous Rx's ?Medication ?Instructions ?Recorded fluticasone propionate 50 2 spray intranasal DAILY 14 days 11/20/23 mcg/actuation nasal #16 grams spray,suspension (Flonase Allergy Relief) loratadine 5 mg-pseudoephedrine ER 1 tab PO DAILY PRN allergy 11/20/23 120 mg tablet,extended symptoms #14 tabs release,12hr (Claritin-D 12 Hour) ondansetron HCl 4 mg tablet 4 mg PO Q6H PRN nausea and 11/20/23 vomiting #12 tabs Allergies Allergy/AdvReac Type Severity Reaction Status Date / Time No Known Drug Allergies Allergy Verified 09/08/23 01:03 Review of Systems ROS Constitutional Denies: fever or chills Eyes Denies: change in vision Ears, nose, mouth, and throat Denies: throat pain or neck pain Cardiovascular Denies: chest pain or palpitations Respiratory Denies: shortness of breath or cough Gastrointestinal Reports: nausea; Denies: abdominal pain or vomiting Genitourinary Reports: urinary frequency and urinary urgency; Denies: painful urination Musculoskeletal Denies: back pain, neck pain, extremity pain or extremity swelling Integumentary/Breast Denies: rash Neurological Denies: headache or numbness in extremities Psychiatric Denies: anxiety PFSH PFS Social History Smoking status: Never smoker Exam Narrative Exam Narrative: Nurses notes and vital signs reviewed and patient is not hypoxic. General: The patient appears well and in no apparent distress. Patient is resting comfortably on cart. Skin: Warm, dry, no pallor noted. no evidence of rash. Head: Normocephalic, atraumatic Neck: Supple, trachea mid-line, no tenderness, no lymphadenopathy Eye: Pupils are equal, round and reactive to light, EOMI Ears, Nose, Mouth, and Throat: TM are clear, normal light reflex, oral mucosa is moist, + congestion noted in turbinates. breathes easily both nares. no posterior oropharynx erythema or hypertrophy, uvula is mid-line Cardiovascular: Regular Rate and Rhythm Respiratory: Patient is in no distress, no accessory muscle use, lungs are clear to auscultation, no wheezing, rales or rhonchi. Chest Wall: no tenderness Musculoskeletal: normal ROM, no tenderness, no swelling GI: Normal bowel sounds, no tenderness to palpation, no masses appreciated. No rebound, guarding, or rigidity noted. Neurological: A&O x4 Psychiatric: Cooperative Constitutional Vital Signs, click to edit/add: Last Vital Signs Temp 98.3 F 11/20/23 10:58 Pulse 81 11/20/23 10:58 Resp 18 11/20/23 10:58 BP 137/98 H 11/20/23 10:58 Pulse Ox 98 11/20/23 10:58 O2 Del Method Room Air 11/20/23 10:58 Course Vital Signs Vital signs: Vital Signs Temperature 98.3 F 11/20/23 10:58 Pulse Rate 81 11/20/23 10:58 Respiratory Rate 18 11/20/23 10:58 Blood Pressure 137/98 H 11/20/23 10:58 Pulse Oximetry 98 11/20/23 10:58 Oxygen Delivery Method Room Air 11/20/23 10:58 Temperature 98.3 F 11/20/23 10:58 Pulse Rate 81 11/20/23 10:58 Respiratory Rate 18 11/20/23 10:58 Blood Pressure 137/98 H 11/20/23 10:58 Pulse Oximetry 98 11/20/23 10:58 Oxygen Delivery Method Room Air 11/20/23 10:58 Medical Decision Making MDM Narrative Medical decision making narrative: Patient without evidence of infection, we discussed likely eustachian tube dysfunction. She has no headache or visual disturbance. She was given Zofran for nausea, urinalysis obtained with urgency and frequency, given irregular periods will check for as well. We discussed trialing Flonase nasal spray, allergy medication with decongestant for symptoms and follow-up to family doctor for reevaluation. Patient educated on the use of Flonase and that it may take several days before she gets relief. Patient denies any room spinning for dizziness and does not appear to be having any vertigo like symptoms, and no tinnitus. The patient is to followup with primary care physician in next 2-3 days or to return to the emergency department should any of the signs or symptoms worsen or new symptoms develop. Patient had questions answered. The patient agrees with the following Diagnosis and Treatment plan and the patient will be discharged home. Lab Data Lab results reviewed: Yes I reviewed the patient's lab results Lab results narrative: test negative, urinalysis unremarkable. Discharge Plan Discharge Stand Alone Forms: Portal Instructions Chief Complaint: Ear Clinical Impression: Ear fullness, Eustachian tube dysfunction Patient Disposition: Home, Self-Care Time of Disposition Decision: 13:48 Condition: Good Prescriptions / Home Meds: New fluticasone propionate [Flonase Allergy Relief] 50 mcg/actuation spray,suspension 2 spray intranasal DAILY 14 Days Qty: 16 0RF Rx Instructions: administer into each nostril Claritin-D 12 Hour 5-120 mg tablet extended release 12 hr 1 tab PO DAILY PRN (Reason: allergy symptoms) Qty: 14 0RF ondansetron HCl 4 mg tablet 4 mg PO Q6H PRN (Reason: nausea and vomiting) Qty: 12 0RF No Action No Known Home Medications Print Language: Romanian Instructions: Earache (ED) Additional Instructions: If not improving, ask PCP about referral to ENT. Referrals: Ivana Quijano MD [Physician] - As needed Ying Reid NP [Primary Care Provider] - 1 week Discharge Date/Time: 11/20/23 14:02
[2023-11-20 13:40] LABS: Bilirubin Urine NEGATIVE (NEGATIVE); Blood Urine NEGATIVE (NEGATIVE); Clarity Urine CLEAR (CLEAR); Color Urine LT. YELLOW (YELLOW); Glucose Urine UA NEGATIVE (NEGATIVE); Ketones Urine NEGATIVE (NEGATIVE); Leukocyte Esterase Urine NEGATIVE (NEGATIVE); Nitrite Urine NEGATIVE (NEGATIVE); Protein Urine NEGATIVE (NEG/TRACE); Urobilinogen Urine 0.2 EU/dL (0.2-1.0)
[2023-11-20 13:41] LABS: Urine Microscopic Indicated NO
[2023-11-20 13:42] LABS: HCG Qualitative Urine* NEGATIVE (NEGATIVE)
[2023-11-20] MEDS: ONDANSETRON 4 MG RAPDIS TABLET SL (13:57)
== END 2023-11-20 14:02 | disposition home or self-care (01) ==
PROVIDERS: Personal Emergency Response Attendant; Emergency Provider Emergency Medicine; PCP Nurse Practitioner
DX: H93.8X3 Other specified disorders of ear, bilateral (principal); H69.83 Other specified disorders of Eustachian tube, bilateral
CPT/HCPCS: 81003; 84703; 99283

== ENCOUNTER 2023-12-04 23:26 | Emergency (ER) | payer BC, MEDICAID, SELFPAY ==
[2023-12-04 23:31] VITALS: BP 130/97; PULSE 92; TEMP 37.2; O2SAT 99; BMI 43.9
[2023-12-04 23:34] VITALS: PULSE 83
--- NOTE | 2023-12-04 23:43 | XR_ITS ---
[facility] [place] [id number] Patient Name: LETICIA NUGENT MRN: [id number] date: 2000 Sex: F Assigned Patient Location: ER Current Patient Location: ER Accession/Order Number: [id number] Exam Date: 12/04/2023 23:58 Report Date: 12/05/2023 00:55 At the request of: STEPHEN CHAVEZ Procedure: XR chest 1V CXR - 1 VIEW HISTORY: Shortness of breath COMPARISON: None. TECHNIQUE: Single frontal view of the chest is submitted for review. FINDINGS: Interstitial opacities in the lungs. The lungs are adequately expanded without evidence of acute infiltrate or effusion. The cardiac silhouette measures within normal. Pulmonary vascularity is mildly prominent Osseous structures are within normal limits for age. XR/XR chest 1V IMPRESSION: Interstitial opacities in the lungs. Please correlate for viral etiology versus early fluid overload. Electronically authenticated by: CHUCKY CAMERON Date: 12/05/2023 00:55
--- NOTE | 2023-12-04 23:43 | ECG_ITS ---
[facility] Test Date: 2023-12-04 Pat Name: LETICIA NUGENT Department: Room: - Gender: Female [place] Hand: : 2000 Requested By: NE DOUGLAS Order Number: [id number] Reading MD: PATRICIO MANZANARES Measurements Intervals [place] Rate: 83 P: 32 [place]: 174 QRS: 84 QRSD: 78 T: 29 QT: 362 QTc: 401 Interpretive Statements 1100 Sinus rhythm 9110 normal ECG No previous ECG available for comparison Electronically Signed On 12-06-2023 8:08:08 EDT by PATRICIO MANZANARES
--- NOTE | 2023-12-04 23:50 | ED_ITS ---
HPI - Chest Pain General Chief Complaint: Chest Pain Stated Complaint: CHEST PAIN, SOB Time Seen by Provider: 12/04/23 23:39 Source: patient Mode of arrival: Wheelchair Limitations: no limitations History of Present Illness HPI narrative: 23-year-old female presents for chest pain and shortness of breath. This started this afternoon when she was climbing a small incline after fishing. She did not fall and there was no injury. She does not have a history of asthma or other breathing issues. It has been continuous since then. She does not complain of back pain or radiation. Related Data Home Medications ?Medication ?Instructions ?Recorded ?Confirmed lamotrigine 25 mg tablet mg 12/04/23 metformin 500 mg tablet mg 12/04/23 Allergies Allergy/AdvReac Type Severity Reaction Status Date / Time No Known Drug Allergies Allergy Verified 12/04/23 23:31 Review of Systems ROS Narrative A ten point review of systems is negative except as noted above. PFSH PFSH Social History Smoking status: Never smoker Exam Narrative Exam Narrative: Nurses note and vital signs reviewed and patient is not hypoxic. General: The patient appears well and in no apparent distress. Patient is resting comfortably on cart. Skin: Warm, dry, no pallor noted. There is no rash noted. Head: Normocephalic, atraumatic Eye: Normal conjunctiva, no drainage Ears, Nose, Mouth, and Throat: oral mucosa is moist. Nares patent. Cardiovascular: Regular Rate and Rhythm Respiratory: Patient is in no distress, no accessory muscle use, lungs are clear to auscultation, no wheezing, rales or rhonchi Back: non-tender GI: Soft and nontender Musculoskeletal: The patient has no evidence of calf tenderness, no pitting edema, symmetrical pulses noted bilaterally Neurological: A&O, normal speech Psychiatric: Cooperative Constitutional Vital Signs, click to edit/add: Last Vital Signs Temp 98.9 F 12/04/23 23:31 Pulse 92 H 12/05/23 00:28 Resp 22 H 12/05/23 00:28 BP 155/98 H 12/05/23 00:28 Pulse Ox 97 12/05/23 00:28 O2 Del Method Room Air 12/05/23 00:28 Course Vital Signs Vital signs: Vital Signs Temperature 98.9 F 12/04/23 23:31 Pulse Rate 92 H 05/31/24 23:31 Respiratory Rate 18 12/04/23 23:31 Blood Pressure 130/97 H 12/04/23 23:31 Pulse Oximetry 99 12/04/23 23:31 Oxygen Delivery Method Room Air 12/04/23 23:31 Temperature 98.9 F 12/04/23 23:31 Pulse Rate 92 H 12/05/23 00:28 Respiratory Rate 22 H 12/05/23 00:28 Blood Pressure 155/98 H 12/05/23 00:28 Pulse Oximetry 97 12/05/23 00:28 Oxygen Delivery Method Room Air 12/05/23 00:28 MDM - Chest Pain MDM Narrative Medical decision making narrative: Her workup is essentially negative. Troponin and D-dimer are negative. Chest x-ray per radiologist suggested some opacities. She has no respiratory symptoms. No fever or cough and she is not short of breath and her vital signs including her pulse ox are normal. She did have COVID twice previously and this finding could be a result of that issue. Nonetheless she is able to be discharged home and she will have her blood pressure rechecked this week by her PCP. Treatment diagnosis and follow-up were discussed with the patient. I have no clinical suspicion of fluid overload Differential Diagnosis Differential diagnosis: Likely pneumothorax, unstable angina pectoris, atypical chest pain, st elevation myocardial infarction, costochondritis and chest pain Lab Data Attestation: I reviewed the patient's lab results. Labs: Lab Results 12/04/23 Range/Units 23:58 WBC 7.0 (4.0-11.0) 10^3/uL RBC 4.48 (4.20-5.40) 10^6/uL Hgb 13.4 (12.0-16.0) g/dL Hct 39.0 (36.0-48.0) % MCV 87.1 (81.0-99.0) fL MCH 29.9 (26.7-34.0) pg MCHC 34.4 (29.9-35.2) g/dL RDW 11.7 (11.0-15.0) % Plt Count 277 (150-450) 10^3/uL MPV 8.5 L (9.5-13.5) fL Neut % (Auto) 50.6 (43.0-75.0) % Lymph % (Auto) 36.0 (20.5-60.0) % [place] % (Auto) 8.9 (1.7-12.0) % Eos % (Auto) 4.0 (0.9-7.0) % Baso % (Auto) 0.4 (0.2-2.0) % Neut # (Auto) 3.5 (1.4-6.5) 10^3/uL Lymph # (Auto) 2.5 (1.2-3.8) 10^3/uL [place] # (Auto) 0.6 (0.3-0.8) 10^3/uL Eos # (Auto) 0.3 (0.0-0.7) 10^3/uL Baso # (Auto) 0.0 (0.0-0.1) 10^3/uL Abs Immat Gran (auto) 0.01 (0.00-0.03) 10^3/uL Imm/Tot Granulo (auto) 0.1 (0.0-0.5) % D-Dimer 0.26 (<=0.59) mg/L FEU Sodium 137 (136-145) mmol/L Potassium 3.8 (3.5-5.1) mmol/L Chloride 101 (98-107) mmol/L Carbon Dioxide 27.7 (21.0-32.0) mmol/L Anion Gap 12.1 BUN 11.0 (7.0-18.0) mg/dL Creatinine 0.77 (0.55-1.02) mg/dL Est GFR ( Amer) >60 (>=60) Est GFR (Non-Af Amer) >60 (>=60) BUN/Creatinine Ratio 14.3 Glucose 101 (74-106) mg/dL Calcium 9.3 (8.5-10.1) mg/dL Troponin I High Sens <4.0 L (4.0-51.3) pg/mL ECG Data Attestation: I personally reviewed and interpreted this ECG as follows: (EKG on my interpretation shows normal sinus rhythm without acute change) Heart Score History: Slightly/Non-Suspicious ECG: Normal Age: <45 years Risk Factors: No Risk Factors Troponin: <Normal Limit Total Heart Score Recommendations & Risks:: 0 Discharge Plan Discharge Stand Alone Forms: Portal Instructions Chief Complaint: Chest Pain Clinical Impression: Chest pain Patient Disposition: Home, Self-Care Time of Disposition Decision: :04 Condition: Good Mode of Transportation: Private Vehicle Prescriptions / Home Meds: No Action metformin 500 mg tablet lamotrigine 25 mg tablet Print Language: Mohawk Instructions: Chest Pain (ED) Referrals: Ying Reid NP [Primary Care Provider] - 1 week
[2023-12-05 00:04] LABS: Basophils Percent Auto 0.4 % (0.2-2.0); Eosinophils Absolute Auto 0.3 10^3/uL (0.0-0.7); Hemoglobin 13.4 g/dL (12.0-16.0); Immature Granulocytes Abs Auto 0.01 10^3/uL (0.00-0.03); Immature Granulocytes Pct Auto 0.1 % (0.0-0.5); Lymphocytes Absolute Auto 2.5 10^3/uL (1.2-3.8); Mean Corpuscular HGB Conc 34.4 g/dL (29.9-35.2); Mean Corpuscular Hemoglobin 29.9 pg (26.7-34.0); Mean Corpuscular Volume 87.1 fL (81.0-99.0); Mean Platelet Volume 8.5 fL (9.5-13.5); Monocytes Absolute Auto 0.6 10^3/uL (0.3-0.8); Monocytes Percent Auto 8.9 % (1.7-12.0); Neutrophils Absolute Auto 3.5 10^3/uL (1.4-6.5); Neutrophils Percent Auto 50.6 % (43.0-75.0); Platelet Count 277 10^3/uL (150-450); Red Blood Count 4.48 10^6/uL (4.20-5.40); Red Cell Distribution Width 11.7 % (11.0-15.0)
[2023-12-05 00:22] LABS: Anion Gap 12.1; BUN Creatinine Ratio 14.3; Calcium 9.3 mg/dL (8.5-10.1); Carbon Dioxide 27.7 mmol/L (21.0-32.0); Chloride 101 mmol/L (98-107); Estimated GFR (African America >60 (>=60); Estimated GFR (Non-African Ame >60 (>=60); Glucose 101 mg/dL (74-106); Potassium 3.8 mmol/L (3.5-5.1); Sodium 137 mmol/L (136-145); Troponin I High Sensitivity <4.0 pg/mL (4.0-51.3)
[2023-12-05 00:28] VITALS: BP 155/98; PULSE 92; O2SAT 97
[2023-12-05 00:45] LABS: D Dimer 0.26 mg/L FEU (<=0.59)
[2023-12-05 01:11] VITALS: BP 142/91; PULSE 90; O2SAT 99
== END 2023-12-05 01:14 | disposition home or self-care (01) ==
PROVIDERS: Emergency Provider Emergency Medicine; PCP Nurse Practitioner
DX: R07.9 Chest pain, unspecified (principal); Z86.16 Personal history of COVID-19
CPT/HCPCS: 36415; 71045; 80048; 84484; 85025; 85378; 93005; 99285

== ENCOUNTER 2025-06-04 00:03 | Emergency (ER) | payer OTHER, MEDICAID, SELFPAY ==
--- OUTSIDE RECORDS SUMMARY | 2025-04-27 07:36 | XMS_ITS | Continuity of Care Document ---
Author Organization [facility] Address [address] [place] [address] Phone Care Team Providers Care Bond Analyst Name Role Phone Loretta Hernandez DDS Unavailable Unavailable Allergies, Adverse Reactions, Alerts Substance Reaction Status Criticality lamotrigine Active No Information Medications Medication Instructions Dosage Effective Dates (start - stop) Status Comments Eulexin 125 mg capsule take 2 capsule by oral route every 8 hours 250 MG - Active Aplenzin 174 mg tablet,extended release take 1 tablet by oral route every day in the morning 174 MG - Active Lotrexone 1.5 mg capsule - Active Altace 1.25 mg capsule take 1 capsule by oral route every day 1.25 MG - Active prednisolone 15 mg/5 mL oral solution take 5 milliliter by oral route every day with food 15 MG - Active Procedures Procedure Date Oral Hygiene Instruction Limited Oral Eval Oral Hygiene Instruction Resin Composite 2s; Posterior Oral Hygiene Instruction Removal Of Impacted Tooth - Soft Tissue Extraction Surgical/erupt Tooth 021 Removal Of Impacted Tooth - Soft Tissue Removal Of Impacted Tooth - Soft Tissue Nutrit Couns For Control Of Ralph Dis Mar Oral Hygiene Instruction Panoramic Film Limited Oral Eval Nutrit Couns For Control Of Ralph Dis Feb Oral Hygiene Instruction Resin Composite 2s; Posterior 1 Resin Composite 2s; Posterior 1 Oral Hygiene Instruction Resin Composite 2s; Posterior 1 Resin Composite 2s; Posterior 1 Oral Hygiene Instruction Resin Composite 2s; Posterior 1 Resin Composite 1s; Posterior 1 Prophylaxis Adult Oral Hygiene Instruction Nutrit Couns For Control Of Ralph Dis Oct Comp Oral Eval New/estab Patient 2020 [employer] Advance Directives Directive Yes / No Effective Date File Name No Information Encounters Encounter Description Practice Location Reason(s) For Visit Diagnoses Date Provider Providers Copied on Encounter [facility], [address] [place] [address], [id number], [place] tel:[phone] Dental Clinic dl (chief complaint) Encounter for screening for dental disorders aMry Burgos. . tel:[phone] [facility], [address] [place] [address], [id number], [place] tel:[phone] Dental Clinic Fill (chief complaint) Encounter for screening for dental disorders Demetrio Rea. [address] [place] [address], [id number], [place]. tel:[phone] [facility], [address] [place] [address], [id number], [place] tel:[phone] Dental Clinic extraction (chief complaint) Encounter for screening for dental disorders Demetrio Rea. [address] [place], [place], [id number], [place]. tel:[phone] [facility], [address] [place] [address], [id number], [place] tel:[phone] Dental Clinic Filling (chief complaint) Encounter for screening for dental disorders Demetrio Rea. [address] [place] [address], [id number], [place]. tel:[phone] [facility], [address], [place], [id number], [place] tel:[phone] Dental Clinic Filling (chief complaint) Encounter for screening for dental disorders Demetrio Rea. [address], [place], [id number], [place]. tel:[phone] [facility], [address], [place], [id number], [place] tel:[phone] Dental Clinic filling (chief complaint) Encounter for screening for dental disorders Demetrio Rea. [address], [place], [id number], [place]. tel:[phone] [facility], [address], [place], [id number], [place] tel:[phone] Dental Clinic filling (chief complaint) Encounter for screening for dental disorders Demetrio Rea. [address], [place], [id number], [place]. tel:[phone] [facility], [address] [place] [address], [id number], [place] tel:[phone] Dental Clinic prophy (chief complaint) Encounter for screening for dental disorders Demetrio Rea. [address], [place], [id number], [place]. tel:[phone] [facility], [address], [place], [id number], [place] tel:[phone] Dental Clinic DN (chief complaint) Encounter for screening for dental disorders Demetrio Rea. [address], [place], [id number], [place]. tel:[phone] Family History Family Member Type Diagnosis Age At Onset Mother Problem Alive and well Father Problem Alive and well Payers Payer name Insurance type Covered libertarian ID Lanette parekh(s) D [facility] CI [id number] D Anthem Medicaid [employer] [facility] [id number] D Medicaid [facility] [id number] Social History Type Description Quantity Date Captured Comments Alcohol Use Details Unknown Caffeine Use Details Unknown Tobacco Use Status Current non-smoker Smoking Status Never smoker Sex Female Sexual Orientation Straight or heterosexual Gender Identity Female Chief Complaint And Reason For Visit From encounter dated '04/27/2025 12:36'. dl (chief complaint). Description: dl Reason For Referral Reason For Referral No Information Plan Of Treatment Date Type Action Status Goal RLP. Due on due Goal Influenza vaccine. Due on Oc due Goal Tdap. Due on due Goal Depression screening. Due on due Goal Hep A. Due on du e Goal PRAPARE ASSESSMENT. Due on O ct due Goal Hepatitis C screening. Due o n due Goal PAP. Due on due Goal Unhealthy drug use screening . Due on due Goal Tdap Vaccine. Due on 2024 due History Of Present Illness Encounter Date Complaint History Of Prese nt Illness dl dl Fill extraction Continue with tr eatment Filling Filling Filling Filling filling filling filling filling prophy prophy DN DN Functional Status Date Functional Assessmen t No Information Instructions Date Instruction Additional Infor mation No Information Assessments Type Assessment Date No Information Patient Care Teams Name Effective Dates (start - stop) Status Members No Information
--- OUTSIDE RECORDS SUMMARY | 2025-05-31 10:02 | XMS_ITS | Continuity of Care Document ---
Author Organization [facility] Address [address] [place] [address] Phone Care Team Providers Care Water Pollution Control Inspector Name Role Phone Ying Reid PARTS FACILITATOR-C Primary Care Provider Ying Reid PARTS FACILITATOR-C Attending Provider Esther Harris APRN Attending Provider Care Teams Patient Care Team Team Status: Active Member Role/Relationship Status Dates Ying Reid , PARTS FACILITATOR-C Primary Care Provider Active Visit Care Team Team Status: Inactive Member Role/Relationship Status Dates Ying Reid , PARTS FACILITATOR-C Primary Care Provider Active Start: March 22, 2025 End: March 22, 2025Ying Reid PARTS FACILITATOR-CAttending ProviderActiveStart: March 22, 2025 End: March 22, 2025 Visit Care Team Team Status: Inactive Member Role/Relationship Status Dates Ying Reid PARTS FACILITATOR-C Primary Care Provider Active Start: April 18, 2025 End: April 18Shorty Carbajal ProviderActiveStart: April 18, 2025 End: April 18, 2025 Visit Care Team Team Status: Inactive Member Role/Relationship Status Dates Ying Reid , PARTS FACILITATOR-C Primary Care Provider Active Start: April 20, 2025 End: April 20, 2025Ying Reid PARTS FACILITATOR-CAttending ProviderActiveStart: April 20, 2025 End: April 20, 2025 Patient Care Team Team Status: Inactive Member Role/Relationship Status Dates Ying AIDA HarringtonC Primary Care Provider Active Start: May 31, 2025 End: May 31, 2025Ying Reid NP-CAttending ProviderActiveStart: May 31, 2025 End: May 31, 2025 Chief Complaint and Reason for Visit Chief Complaint Admit Date Established Patient March 22, 2025 5:58pm lower back pain April 18, 2025 4 :05pm Meds not agreeing with her April 20, 2025 3:20pm 6W May 31, 2025 1:58pm Reason for Visit Admit Date ANGEL (generalized anxiety disorder) Patience mber 2024 5:58pm Major depression, recurrent March 222024 5:58pm Obesity, morbid, BMI 40.0-49.9 March 22, 2025 5:58pm Strain of lumbar region April 18 4:05pm Anxiety and depression April 20 3:20pm Insomnia April 20, 2025 3 :20pm Obesity, morbid, BMI 40.0-49.9 April 052024 3:20pm Anxiety and depression May 31 1:58pm Insomnia May 31, 2025 1:58pm Obesity, morbid, BMI 40.0-49.9 May 31, 2025 1:58pm Allergies, Adverse Reactions, Alerts Allergen Type Severity Reaction Last Updated Verified Status lamotrigine Allergy Unknown rash April 18, 2025 3:07pm Ye s Active lomitapide Allergy Unknown Rash April 18, 2025 3:07pm Yes Active Social History Smoking Status Status Start Date End Date Date of Observa tion Never smoked tobacco (finding) January 01, 2025 6:57am Observation Status Observation Response Date of Response Legal Sex Female (finding) [facility] Family History Relationship Condition Age at Onset Recorded Date/T orion Not Specified No pertinent family history Unknown fatherAcute Crohn's diseaseUnknown Problems Active Problems Problem Diagnosis/Recorded Date Onset Date Stat us Breakthrough bleeding on Nexplanon March 21 12:35pm Unknown Active Hyperinsulinemia March 21, 2025 12:36pm Unknown Active Tetrahydrocannabinol (THC) dependence March 21, 2025 12:34pm Unknown Active Major depression, recurrent March 21, 2025 12:35 pm Unknown Active Insomnia March 21, 2025 12:36pm Unknown Active ANGEL (generalized anxiety disorder) March 21 12:34pm Unknown Active anemia January 03, 2025 10:53am Unknown Active Mood disorder March 21, 2025 12:36pm Unknown Active Paresthesia of foot, bilateral March 21, 2025 12 :36pm Unknown Active Anxiety and depression March 21, 2025 12:35pm Un known Active 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, 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 Unknown Active Obesity, morbid, BMI 40.0-49.9 March 21, 2025 12 :36pm Unknown Active Allergic rhinitis March 21, 2025 12:35pm Unknown Active Contact dermatitis February 03, 2025 11:11am Unknown Active Inactive/Resolved Problems Problem Diagnosis/Recorded Date Onset Date Stat us UTI (urinary tract infection) August 29, 2024 4:03 am Unknown Resolved Vaginal discharge August 29, 2024 4:03am Unknown Resolved Status post vaginal delivery January 02, 2025 9:08am Un known Resolved Medications Medication Status Dose Units Route Directions Qty Days Refills S tart Date Stop Date End Date Reason(s) Instructions Adherence Venlafaxine (Effexor Xr) 37. 5 mg capsule,extended release 24hr Discontinued 75 MG PO Daily 60 1Sept2024 7:45pmSept2024 12:59pmGeneralized anxiety disorder Recurrent major depressive disorder Generalized anxiety disorder Major depressive disorder, recurrent, unspecified1 pill daily for 7 days, then increase to 2pills dailyVenlafaxine (Effexor Xr) 37.5 mg capsule,extended release 61waYbjgyekgvxyr09ERNHDvdjn435Wotwfbteh 29th, 2025 12:59pmOctober 2024 3:31pmGeneralized anxiety disorder Recurrent major depressive disorder Generalized anxiety disorder Major depressive disorder, recurrent, unspecifiedTrazodone 50 mg tablet Htdgdrrretlo64VMUXUpppk at mdykgja844Cboyvpdz2024 4:17pmMay 15, 2025 4:41pmInsomnia Insomnia, unspecifiedTrazodone 50 mg gldqtqTtrsbx95LXQKYamaa at zdwpgsa622 May 15, 2025 4:41pmInsomnia Insomnia, unspecifiedUnknownFluoxetine 20 mg vjomocxTiqmps05BRESJwmzk808Gnpyfjpq 2024 1:02pmAnxiety and depression Anxiety disorder, unspecified Depression, unspecifiedUnknownCephalexin 500 mg chjqvukEonpvitfanlh083ZDZXGnmvf amwhz1938Jxscgmhp 2024 12:00amMay 2024 11:51pmFerrous Sulfate 325 mg (65 mg iron) nrrjetLvbipz255WCZKMgosi50065Lxvv 2024 11:00pmUnknownDocusate Sodium (Colace) 100 mg tjhssnwCwzilyjfyfqv731BMKXNgxuz553Tlwf 2024 11:00pm February 03, 2025 9:52amIbuprofen 600 mg pceoxrFuaxgmbhncaz874EZLFYdbua 6 hours as needed for tzis897Tnuf 2024 11:00pmAugust 2024 9:52amdo not exceed 4 doses in a 24 hour periodLamotrigine (Lamictal) 25 mg vcgazuGuxfnyiizipd16BFCF DailyMay 2023 11:00pmMay 2024 11:51pmMetformin 500 mg tablet Szglgdsxsjsx746DCYGZhltu dailyMay 2023 11:00pmMay 2024 11:51pm Magnesium Oxide 400 mg (241.3 mg magnesium) asoudrZmcxwwxlhfbx716EJOHEyezpMhv 2024 11:00pmJuly 2024 10:51amAspirin 81 mg tablet,chewable Ozlnsvoelvhh6JCAFOCasjwKzp 19th, 2025 11:00pmJuly 2024 10:51am Docosahexaenoic Acid ( Dha) 200 mg lpdsalrHvmbkdvjjleb302MMLWWwjvpIrf 2024 11:00pmAugust 2024 9:52amCephalexin 500 mg capsuleDiscontinued 500MGPOFour times dailyJune 2024 11:00pmJune 2024 9:25amMagnesium Oxide 400 mg (241.3 mg magnesium) tabletDiscontinuedMGPOJuly 2024 11:00pm February 03, 2025 9:52amAspirin 81 mg tablet,chewableDiscontinuedPOJuly 2024 11:00pmAugust 2024 9:52amPrednisone 20 mg xuleleWywgfbxnufyp29VVVG .WIVUVSM590Pree 2024 11:00pmSept2024 7:18amTake 3 tabs po daily x 3 days, then take 2 tabs po daily x 3 days, then take 1 tab po daily x 3 days.Bupropion Hcl 100 mg zrwfamDjhhnxwmufru305DGJVAwuom dailySept2024 11:00pmSept2024 5:39pmVenlafaxine (Effexor Xr) 37.5 mg capsule,extended release 22daDecwptvdegva63.8OKJOJwhpv720Ntmgqcbrh 2024 11:00pmSept2024 7:46pmGeneralized anxiety disorder Recurrent major depressive disorder Generalized anxiety disorder Major depressive disorder, recurrent, unspecified1 pill daily for 7 days, then increase to 2pills dailyFluoxetine 20 mg dtgzxehUwfggtmdtlam84SPKYJarkqErekase 2024 11:00pmOctbreckinridge memorial hospital 2024 3:32pmFluoxetine 20 mg capsuleDiscontinued 92BPBUYvxan662Ysbbqmg 2024 3:31pmNovember 2024 1:02pmAnxiety and depression Anxiety disorder, unspecified Depression, unspecifiedTrazodone 50 mg exxgwbRjuqoedxhlcs13ETXULabff at bedtime 301October 2024 11:00pmNov2024 4:17pmInsomnia Insomnia, unspecifiedLevonorgestrel-Ethinyl Estrad (Altavera (28)) 0.15-0.03 mg tabletActiveTABPOOctober 2024 11:00pmUnknownBupropion Hcl 100 mg tablet DiscontinuedMGPOOctbreckinridge memorial hospital 2024 11:00pmOctbreckinridge memorial hospital 2024 3:12pm Cyclobenzaprine 10 mg iwkmjdWirbno61YVUGAbbfk times tncvo5630Sqjjrfk 2024 11:00pmUnknownPrednisone 20 mg sroemmAauwzincczby16VKFHVaxmt ndhen0215Qjiyhjk 2024 11:00pmNov2024 6:47am Vital Signs Vital Reading Result Reference Range Collection Date/Time Height 61 [in_i] March 22, 2025 5:88rbKztwdb508.62 kgSeptember 2024 5:08pmBody Unlvmfohfte72.1 [degF]97.6-99.0Sept2024 5:08pmHeart Rate99 /min 60-100Sept2024 5:08pmRespiratory rate18 /jnt36-10Iyfepbckd 17th, 2025 5:08pmOxygen saturation by Pulse thvnqhut93 %95-100Sept2024 5:08pmBP Fdszqbyt225 mm[Hg]100-140Sept2024 5:08pmBP Vxhhwfoyj21 mm[Hg]60-100Sept2024 5:08pmBMI (Body Mass Index)42.7 kg/z6Yopsniriv2024 5:50keLzygnt86 [in_i]April 18, 2025 3:42lhKcajie296.05 kgOctbreckinridge memorial hospital 2024 3:12pmBody Hhlfanuwixz02.5 [degF]97.6-99.0Octbreckinridge memorial hospital 2024 3:12pm Heart Rate84 /hmg08-957SdklpoxApril 18, 2025 3:12pmRespiratory rate18 /vdl17-99 April 18, 2025 3:12pmOxygen saturation by Pulse ahyezjeu43 %95-100Octbreckinridge memorial hospital 2024 3:12pmBP Simjhufe732 mm[Hg]100-140Oct2024 3:12pmBP Yiwhlunyw48 mm[Hg]60-100October 2024 3:12pmBMI (Body Mass Index)41.1 kg/m2 April 18, 2025 3:30pmJqajhk43 [in_i]April 20, 2025 2:60zaAkuxcm128.51 kg April 20, 2025 2:42pmBody Entugnavzgd21.1 [degF]97.6-99.0October 2024 2:42pmHeart Xelz739 /tzf59-462AefcxsgApril 20, 2025 2:42pmRespiratory rate18 /min 12-24Oct2024 2:42pmOxygen saturation by Pulse cfnkerbm96 %95-100 April 20, 2025 2:42pmBP Duztitgp090 mm[Hg]100-140[facility] 2024 2:42pmBP Ryvaejqup25 mm[Hg]60-100Octbreckinridge memorial hospital 2024 2:42pmBMI (Body Mass Index)41.3 kg/b9Bulzulg 2024 2:14gyXfpphj45 [in_i]May 31, 2025 2:19pmWeight 101.71 [facility] 2024 2:19pmBody Yatbunkivcf99.3 [degF]97.6-99.0[facility] 2024 2:19pmHeart Rate83 /gzd20-962Gbfyitbr 2024 2:19pmRespiratory rate16 /oif94-49Npnldxlq 26th, 2025 2:19pmOxygen saturation by Pulse %95-100[facility] 2024 2:19pmBP Aohsjebf293 mm[Hg]100-140[facility] 2024 2:19pmBP Hilliflbu55 mm[Hg]60-100[facility] 2024 2:19pmBMI (Body Mass Index)41.0 kg/n3Cvaeumob 2024 2:19pm Advance Directives Advance Directive Response Recorded Date/ Time Advance Directives No December 03 10:02pm Insurance Providers Guarantor Shaneka Jones Address [address] [place] [id number] Info.Home Phone: Coverage Status Update:2024 Payer Group Member ID Coverage Type Subscriber Relationship to Subscriber Effective Date Expiration Date MMO Id: [id number] R Lippert Id: [id number] [address] [place] [id number] Home Phone: Email: [email or web address] ALONSO/BS Id: [id number] R Lippert Id: [id number] [address] [place] [id number] Home Phone: Email: Encounters Encounter Location(s) Arrival/Admit Date Discharge/Departure Date Discharge/Departure Disposition Provider(s) Departed Physician/ Provider Office Visit -[facility] March 22, 2025 5:58pm March 22, 2025 6:37pm Discharged to home care or self care (routine discharge) ANNABELLE Amanda Departed Physician/ Provider Office Visit -[facility] [place] April 18, 2025 4:05pm April 18, 2025 4:33pm Discharged to home care or self care (routine discharge) Esther Harirs APRN Departed Physician/ Provider Office Visit -[facility] April 20, 2025 3:20pm April 20, 2025 4:19pm Discharged to home care or self care (routine discharge) ANNABELLE Amanda Departed Physician/ Provider Office Visit -[facility] May 31, 2025 1:58pm May 31, 2025 3:01pm Discharged to home care or self care (routine discharge) ANNABELLE Amanda Recent Diagnosis Onset Date Admit Date ANGEL (generalized anxiety disorder) Unknown March 22, 2025 5:58pm Major depression, recurrent Unknown Mar 5:58pm Obesity, morbid, BMI 40.0-49.9 Unknown S eptember 2024 5:58pm Strain of lumbar region Unknown April 18, 2025 4:05pm Anxiety and depression Unknown April 052024 3:20pm Insomnia Unknown April 20 3:20pm Obesity, morbid, BMI 40.0-49.9 Unknown O ctober 2024 3:20pm Anxiety and depression Unknown May 31, 2025 1:58pm Insomnia Unknown May 31 1:58pm Obesity, morbid, BMI 40.0-49.9 Unknown N ovember 2024 1:58pm Assessments Diagnosis Onset Date Resolution Status Admit Date ANGEL (generalized anxiety disorder) acuteSeptember 2024 5:58pmMajor depression, recurrentacuteSeptember 2024 5:58pmObesity, morbid, BMI 40.0-49.9acuteSeptember 2024 5:58pmStrain of lumbar regionnoneactiveOctober 2024 4:05pmAnxiety and depressionacute October 2024 3:20pmInsomniaacuteOctober 2024 3:20pmObesity, morbid, BMI 40.0-49.9acuteOctober 2024 3:20pmAnxiety and depressionacuteNovember 2024 1:58pmInsomniaacuteNovember 2024 1:58pmObesity, morbid, BMI 40.0-49.9acuteNovember 2024 1:58pm Plan of Treatment Author Ying Reid [facility] CenterAuthoredSeptember 2024 5:45pmlast appt started on wellbutrin now is not helping, in the past has trialed: sertraline, fluoxetine, effexor, abilify, remeron sounds like effexor did help will start with effexor xr 37.5mg daily for 7 days, then increase to 2 pills daily while doing this she is instructed to cut buproprion down to 1 daily for 5 days, then every other day for 5 doses then stop fu in 6 weeks Take medication only as directed. This medication will take approximately 4-6 weeks to become effective. If any suicidal thoughts, thoughts of hurting others, or hallucinations contact the office or proceed to the Emergency Room for mental health evaluation. This medication can cause dry mouth, dizziness, and in some cases worsening in depression symptoms. Please contact the office if these occur. Discussed with patient their BMI (actual vs recommended). We have discussed lifestyle modifications: attempts to perform phsyical activity as chronic conditions allow, monitor dietary intake: increasing protein/fruits/veggies and lowering carb intake (unless contraindicated). Limit sodas, juices, sugary drinks, as well as alcohol consumption. last appt started on wellbutrin now is not helping, in the past has trialed: sertraline, fluoxetine, effexor, abilify, remeron sounds like effexor did help will start with effexor xr 37.5mg daily for 7 days, then increase to 2 pills daily while doing this she is instructed to cut buproprion down to 1 daily for 5 days, then every other day for 5 doses then stop fu in 6 weeks Take medication only as directed. This medication will take approximately 4-6 weeks to become effective. If any suicidal thoughts, thoughts of hurting others, or hallucinations contact the office or proceed to the Emergency Room for mental health evaluation. This medication can cause dry mouth, dizziness, and in some cases worsening in depression symptoms. Please contact the office if these occur. Author Ying [facility]meagan [facility] HospitalhoredNovb[facility] rehabilitation [facility] 2024 2:42pmcurrent meds: fluoxetine 04/20/25: ANGEL 7=7 PHQ 9= 10 05/31/25 ANGEL 7=13 PHQ 9= 6 Discussed with patient their BMI (actual vs recommended). We have discussed lifestyle modifications: attempts to perform phsyical activity as chronic conditions allow, monitor dietary intake: increasing protein/fruits/veggies and lowering carb intake (unless contraindicated). Limit sodas, juices, sugary drinks, as well as alcohol consumption. trazodone Author Ying [facility] healthcaremeagan [facility] 2024 3:35pmDiscussed with patient their BMI (actual vs recommended). We have discussed lifestyle modifications: attempts to perform phsyical activity as chronic conditions allow, monitor dietary intake: increasing protein/fruits/veggies and lowering carb intake (unless contraindicated). Limit sodas, juices, sugary drinks, as well as alcohol consumption. current meds: effexor xr, will wean off effexor: start with 37.5mg pill every day for 5 days, then every other day for 5 doses, then every 3rd day for 3 doses then stop. also while doing this she is to start her fluoxetine 20mg daily. she is also starting on buproprion an naltraxone with endo Take medication only as directed. This medication will take approximately 4-6 weeks to become effective. If any suicidal thoughts, thoughts of hurting others, or hallucinations contact the office or proceed to the Emergency Room for mental health evaluation. This medication can cause dry mouth, dizziness, and in some cases worsening in depression symptoms. Please contact the office if these occur. will provide trazodone for sleep Author Esther Harris [facility] HospitalOct[facility] 2024 4:18pmDiscussed diagnosis with patient. Patient is not currently . Advised patient to take medications as directed. Use muscle relaxer at night time as it may cause drowsiness. May use OTC Tylenol and icy hot application for additional relief. Encouraged warm compresses, light stretches, and massage may also help with pain. Avoid strenuous activity, perform activity as tolerated, do not stay stationary for long periods of time as it might make symptoms worse. Follow up with PCP in 1 week if symptoms do not improve. Immediate eval for??chest pain, shortness of breath, fever, numbness or tingling, loss of bowel or bladder control, pain becomes severe, difficulty moving neck, back, arms or legs, dizziness, headache, or if any other new or concerning symptoms arise. Patient verbalizes understanding and is agreeable to treatment plan. Future Tests Future scheduled test information is unavailable Pending Tests Pending diagnostic test information is unavailable Future Visits Future appointment information is unavailable Future Procedures Future procedure information is unavailable Future Medications Future medication information is unavailable Patient Instructions Patient instructions are unavailable
[2025-06-04 00:05] VITALS: BP 133/90; PULSE 91; TEMP 36.9; O2SAT 97; BMI 41.2
--- OUTSIDE RECORDS SUMMARY | 2025-06-04 00:21 | XMS_ITS | Clinical Summary ---
Author Organization [employer] s tem Address [id number] [address] [place] [address] Care Team Providers Care Heater [place] Name Role Phone Unavailable Primary Care Provider Unavailabl e Allergies Active AllergyReactionsCriticalityNoted KmkpWhnzmibsYtgxkvyusaiQlrkGka09/21/2025 Medications MedicationSigDispense QuantityRefillsLast FilledStart DateEnd DateStatus CEPHalexin (KEFLEX) 500 mg capsule Take 1 capsule (500 mg total) by mouth in the morning and 1 capsule (500 mg total) at noon and 1 capsule (500 mg total) in the evening and 1 capsule (500 mg total) before bedtime.Active progesterone (ENDOMETRIN) 100 mg vaginal insert Insert 2 tablets (200 mg total) into the vagina in the morning and 2 tablets (200 mg total) before bedtime.Active Active Problems ProblemNoted DateDiagnosed DatePolyhydramnios affecting efijhfawn93/21/2025 Obesity affecting , /21/5526Dofkpscokiulsilj62/21/2025 Immunizations ImmunizationAdministration DatesNext UstWDxG7902/08/2015,02/24/2008,03/01/2003, 2002,2002Hep A, 2 Dose04/06/2019,10/05/2018Hepatitis B003/01/2003, 2002,2002Hib (PRP-OMP)03/01/2003,2002,2002IPV02/24/2008, 03/01/2003,2002,2002MMR02/24/2008,07/14/2003Meningococcal B, Jjtzbqtcfnn82/02/2019,10/05/2018Meningococcal FVR1E4510/05/2018Pneumococcal Conjugate 13-Zzcoie7203/01/2003,2002,09/16/20025553Vzmjwgktk36/21/2008, 10/30/2003 Family History Medical HistoryRelationNameCommentsCrohn's diseaseFatherDepressionFatherCancer Maternal GrandmotherGoutMotherHypertensionMotherDepressionPaternal GrandmotherNo Known ProblemsSisterRelationNameStatusCommentsFatherAliveMaternal Grandmother MotherAlivePaternal GrandmotherSisterAlive Social History Tobacco UseTypesPacks/DayYears UsedDateSmoking Tobacco: NeverSmokeless Tobacco: NeverChildcareAnswerDate WkqvkqqiZnhrzalbfHblntnq84/12/2019EmploymentAnswerDate VufilxhvCpuwsnfxkxZhfgwrx44/12/2019Purpose - LifeAnswerDate RecordedPurpose and direction in xabqBsczmwl43/11/2021CommentsNoSex and Gender Information ValueDate RecordedSex Assigned at BirthNot on fileLegal FmuYmmhqd71/06/2015 12:05 PM EDTGender IdentityNot on fileSexual OrientationNot on file Last Filed Vital Signs Vital SignReadingTime TakenCommentsBlood Imbmrlct596/60010/19/2018 10:39 AM EDT Lhndk262010/19/2018 10:39 AM YJALodlpkgjkbi84.9 ??C (98.4 ??F)10/19/2018 10:39 AM EDTRespiratory Hcef351610/19/2018 10:39 AM EDTOxygen Saturation--Inhaled Oxygen Concentration--Zbvnky42.2 kg (207 lb 9.6 oz)10/19/2018 10:39 AM TTGSmdcti891.1 cm (5' 2.25 )10/05/2018 8:44 AM EDTBody Mass Index-- Plan of Treatment Health MaintenanceDue DateLast DoneCommentsDepression Zuktnehbk51/24/2014Tobacco Eemnpjwny21/24/2014Adult BMI Wthnezdfa34/24/2020Pap Smear3DTaP,Tdap and Td Vaccines (6 - Tdap)/12/2014, 02/08/2015, 02/24/2008, Additional history existsInfluenza Euwltpk8103/06/2025 Medical Devices Not on file Insurance
--- OUTSIDE RECORDS SUMMARY | 2025-06-04 00:21 | XMS_ITS | CCD ---
Author Organization [facility] Care Team Providers Care Supervisor Yard Name Role Phone Esther Beal Unavailable DionneCrys Unavailable Mitzi Obregon Unavailable KATHY REID Attending Unavailable KATHY REID Consulting Unavailable KATHY REID Primary Care Unavailable KATHY REID YING Admitting Unavailable Lei Salmeron MD Primary Care Provider [phone] Jeanette COAL BRIQUETTE MACHINE OPERATOR, Ying Unavailable Ying Reid Primary Care Provider DO Milo Pineda Emergency Provider Nicole Fraga Primary Care Provider [phone] Jeanette YARD ASSOCIATE, Ying [place] Unavailable NICOLE FRAGA Primary Care Unavaila KAMERON Loyola Referring Unavailable Flakito CAMPO, Nicole Ang Primary Care Provider Jeanette COAL BRIQUETTE MACHINE OPERATOR, Ying Unavailable Jeanette COAL BRIQUETTE MACHINE OPERATOR, Ying Unavailable Dea-Nossek CAN OPERATOR-FUEL STORAGE TECHNICIAN, Emerald M Unavailable Ying Reid Primary Care Provider [phone] Willam Martinez DO Emergency Provider Brock Garrido MD Attending Provider Shyay Juan DO Attending Provider Yayo CAMPO, Unique Primary Care Provider Ying Reid Primary Care Provider Megan Walker MD Attending Provider [phone] NON STAFF Primary Care Provider UnavailBrock Lunsford MD Admit Provider Brock Trejo MD Attending Provider [phone] Yojana Schaeffer MD Attending Provider Ying Reid Primary Care Unavailable Walker, Penola P Admitting Unavailable Walker, Penola P Attending Unavailable Denise, Penola P Referring Unavailable Sylwia, Brock Admitting Unavailable Sylwia Brock Attending Unavailable NON STAFF Primary Care Unavailable Rinkes Shayy Attending Unavailable NON STAFF Primary Care Unavailable Rinkes, Shayy Admitting Unavailable Printmelida, Brock Admitting Unavailable Brock Trejo Attending Unavailable Ying Reid Primary Care Unavailable Ying Reid Primary Care Unavailable Denise, Penola P Attending Unavailable Denise Penola P Admitting Unavailable Ying Reid Primary Care Unavailable Walker, Penola P Attending Unavailable Walker, Penola P Admitting Unavailable Yessica Shayy Attending Unavailable Ying Reid Primary Care Unavailable Rinkes, Shayy Admitting Unavailable Yessica, Shayy Attending Unavailable Ying Reid Primary Care Unavailable Rinkes, Shayy Admitting Unavailable NON STAFF Primary Care Unavailable Walker, Penola P Attending Unavailable Denise, Penola P Admitting Unavailable Ying Reid Primary Care Unavailable Willam Martinez Admitting Unavailable Willam Martinez Attending Unavailable Walker, Penola P Attending Unavailable Walker, Penola P Admitting Unavailable NON STAFF Primary Care Unavailable Laury, Yojana Admitting Unavailable Laury, Yojana Attending Unavailable Laury, Yojana Attending Unavailable NON STAFF Primary Care Unavailable Laury, Yojana Admitting Unavailable Charly KATHY Noemi CHAVEZ Unavailable Unavaila ble Ying Reid Primary Care Provider Shayy Juan DO Attending Provider [phone] Rosa Lal APRN Attending Provider Nicole Fraga MD Primary Care Provider Yessica ROSA Shayy Attending Provider Megan Walker MD Attending Provider Jeanette COAL BRIQUETTE MACHINE OPERATOR-C, Ying Gannon Primary Care Provider Jeanette COAL BRIQUETTE MACHINE OPERATOR-C, Ying Gannon Attending Provider [phone] MALDONAL, BRANDON Attending Unavailable MALGERDAE, BRANDON Referring Unavailable FLAKITO, TEMPLE GRICEL Primary Care Unavaila ble MALSHSergio, BRANDON Attending Unavailable PROVIDER, INSULATION MANAGER TRANSCRIBE Referring Unav ailable FLAKITO, TEMPLE GRICEL Primary Care Unavaila ble BOBULA, DARNELL Attending Unavailable BRANDI, BETH Referring Unavailable FLAKITO, TEMPLE GRICEL Primary Care Unavaila ble FLAKITO, TEMPLE GRICEL Primary Care Unavaila ble BINDUKUMARI SURESHKARASH, CAROLE Attending Unavailable FLAKITO, TEMPLE GRICEL Primary Care Unavaila ble FLAKITO, TEMPLE GRICEL Primary Care Unavaila ble BINDUKUMARI SURESHKUMAR, CAROLE Attending Unavailable FLAKITO, TEMPLE GRICEL Primary Care Unavaila ble Steven CAN OPERATOREsther Ballard L Attending Provider Mary ESPINAL, Loretta Attending Unavailable Lei Salmeron MD Primary Care Provider [phone] Jeanette COAL BRIQUETTE MACHINE OPERATOR, Ying Unavailable Jeanette COAL BRIQUETTE MACHINE OPERATOR, Ying Unavailable [facility], Liudmila L Unavailable DENISE, MEGAN P Attending Unavailable DENISE, PENOLA P Attending Unavailable WALKER, PENOLA P Attending Unavailable WALKER, PENOLA P Attending Unavailable WALKER, PENOLA P Attending Unavailable WALKER, PENOLA P Attending Unavailable WALKER, PENOLA P Attending Unavailable WALKER, PENOLA P Attending Unavailable WALKER, PENOLA P Attending Unavailable DENISE, PENOLA P Attending Unavailable DENISE, PENOLA P Attending Unavailable YING REID Attending Unavailable DENISE, PENOLA P Attending Unavailable JOSE BARROW Attending Unavaildomingo e YING REID Attending Unavailable DENISE, PENOLA P Attending Unavailable Mary ESPINAL, Loretta Unavailable Unavailable Allergies Allergy ClassificationReported Allergen(s)Allergy TypeDate of OnsetReaction(s) Facility (17 sources)lamoTRIgine; Translations: [LAMOTRIGINE]Drug Xktfdih54-81-8269[facility] (20 sources)LamotriginePropensity to adverse adjvtvctd15-15-8351VtxrZOPV [facility] Work Phone: (20 sources)lomitapideDrug Mkszigo20-94-3493VzuugUGWA [facility] (1 source)lomitapideDrug Kubquom65-37-0421OqifdkrtzC[facility] (3 sources)metFORMIN; Translations: [METFORMIN]Drug Zwvfleo47-56-0664Tgvdyknf [facility] Medications Current Medications MedicationDrug Class(es)DatesSig (Normalized)Sig (Original)azithromycin 500 mg oral tablet (13 sources)Macrolide AntimicrobialStart: 12-10-2024 End: 47-05-9232xnqh 1 tablet by mouth once dailyazithromycin (Zithromax) 500 MG tablet Indications: Acute vaginitis Take 1 tablet (500 mg) by mouthDaily for 10 days 10 tablet 1 12/10/2024 12/20/2024 ActiveStart: 09-15-2024 End: 02-92-5214zuzd 1 tablet by mouth once dailyazithromycin (Zithromax) 500 MG tablet Indications: Acute vaginitis Take 1 tablet (500 mg) by mouthDaily for 10 days 10 tablet 1 09/15/2024 09/25/2024 ActiveStart: 05-48-7127ovviijmjvfdb (Zithromax) 250 MG tablet Indications: Laryngitis 2 pills day #1, 1 pill day #2- #5 6 tablet 0 08/18/2023 ActiveStart: 70-62-7555cucyblmllnea (Zithromax) 250 MG tablet Indications: Laryngitis 2 pills day #1, 1 pill day #2-#5 6 tablet 0 08/18/2023 Activecyclobenzaprine hydrochloride 10 mg oral tablet (2 sources)Muscle RelaxantStart: 16-07-0751iogp 1 tablet by mouth three times dailydexamethasone 1 mg oral tablet (1 source)CorticosteroidStart: 02-02-2024 End: 00-08-0273qyjBIQBCplmlx (DECADRON) 1 mg tablet Indications: Elevated testosterone level Take 1 tablet by mouth one time only for 1 dose. At 11:00pm, then get blood test the next morning at 8:00am 1 tablet 0 02/02/2024 02/02/2024 ActiveLevonorgestrel-Ethinyl Estrad (6 sources)Progestin, Estrogen, Progestin-containing Intrauterine DeviceStart: 06-01-3595Dirux: 19-66-9667Wrdsekpsszutaf-Ethinyl Estrad (Altavera (28)) 0.15- 0.03 mg tablet Active TAB PO April 18, 2025 12:00am Complies with drug therapyStart: 10-04-4503bbke 1 tablet by mouth once dailylevonorgestrel-ethinyl estradiol 0.15-0.03 mg per tab Take 1 tablet by mouth once daily. 84 tablet 1 03/01/2025 Activelevonorgestrel-ethinyl estradiol (Nordette) 0.15-30 MG-MCG tablet Take 1 tablet by mouth Daily Activeferrous sulfate 325 mg delayed release oral tablet (17 sources)Start: 01-03-2025 End: 76-88-4738bure 1 tablet by mouth at mealtimeferrous sulfate (Fe Tabs) 325 (65 Fe) MG EC tablet Indications: Iron deficiency anemia, unspecifiediron deficiency anemia type Take 1 tablet (325 mg) by mouth in the morning. Take with meals. Do notcrush, chew, or split. 30 tablet 11 01/30/2025 01/30/2026 Active Start: 39-06-2807knle 1 tablet by mouth once dailyFLUoxetine 20 mg oral capsule (2 sources)Serotonin Reuptake Inhibitortake 1 capsule by mouth once daily FLUoxetine (PROzac) 20 MG capsule Take 20 mg by mouth Daily Activeflutamide 125 mg oral capsule (1 source)Androgen Receptor Inhibitortake 2 capsules by mouth every eight hours Eulexin 125 mg capsule take 2 capsule by oral route every 8 hours 250 MG - Activeiv contrast (will be provided with radiology test) (1 source)Start: 02-02-2024 End: 02-91-0137qw contrast (will be provided with radiology test) Indications: Elevated testosterone level CT Adrenal/Pel WO/W Inject, intravenously, once for 1 dose.No IV access, insert saline lock prior to the beginning of sedation, infusion, injection of imaging exam. Discontinue saline lock post exam. If Pt. h as a central line or IVAD, may access for administration according to line specific nursing protocol. Once exam is complete flush line and de-access according to line specific nursing protocol in theCT contrast administration guidelines link 1 Each 0 02/02/2024 02/03/2024 ActiveMagnesium (11 sources)Start: 08-17-2024 End: 30-37-6453haps 1 capsule by mouth at bedtimeMagnesium 400 MG capsule Indications: Nonintractable headache, unspecified chronicity pattern, unspe cified headache type Take 1 capsule by mouth at bedtime 30 capsule 11 08/17/2024 09/16/2024 Activenaltrexone hydrochloride 50 mg oral tablet (13 sources)Opioid AntagonistStart: 05-10-2024 End: 99-63-3086adnxudmbpi 50 mg tablet Indications: Obesity, Class III, BMI 40- 49.9 (morbid obesity) (HCC) Take 1/2 tablet twice daily 30 tablet 2 05/10/2024 ActiveStart: 04-14-2024 End: 32-26-3844tkjfojmfsp 50 mg tablet Indications: Obesity, Class III, BMI 40- 49.9 (morbid obesity) (HCC) Take 1/4 tablet every night for 7 days, then increase to 1/2 tablet every night 15 tablet 2 04/14/2024 05/10/2024 DiscontinuedLotrexone 1.5 mg capsule - Activenaproxen 500 mg oral tablet (3 sources)Nonsteroidal Anti-inflammatory DrugStart: 05-17-2024 End: 00-98-7305rmbi 1 tablet by mouth in the morningnaproxen (Naprosyn) 500 MG tablet Indications: Strain of thoracic back region Take 1 tablet (500 mg) by mouth in the morning and 1 tablet (500 mg) before bedtime. Do all this for 15 days. Take with food. 30 tablet 05/17/2024 06/06/2024 DiscontinuedNIFEdipine 30 mg osmotic 24 hr extended release oral tablet (20 sources)Dihydropyridine Calcium Channel BlockerStart: 12-22-2024 End: 68-05-3564uxvr 1 tablet by mouth once dailyNIFEdipine XL (Procardia XL) 30 MG 24 hr tablet Indications: Uterine contractions (HHS-HCC) Take 1 tablet (30 mg) by mouth Daily Do not crush, chew, or split. 5 tablet 12/22/2024 12/22/2025 Activeolopatadine 2 mg/ml ophthalmic solution (1 source)Histamine-1 Receptor InhibitorStart: 31-94-9317jsey 1 drop(s) into the eye(s) once dailyPataday 0.2 % 1 drop into affected eye Ophthalmic Once a day Dec, Activeondansetron 4 mg oral tablet (13 sources)Serotonin-3 Receptor AntagonistStart: 11-20-2023 End: 02-56-2534yhjf 1 tablet by mouth every six hours as needed for nausea and vomitingondansetron (Zofran) 4 MG tablet Take 4 mg by mouth every 6 (six) hours if needed for nausea or vomiting 11/20/2023 06/06/2024 Discontinuedpramoxine hydrochloride 10 mg/ml rectal foam (5 sources)Start: 09-07-2024 End: 32-45-8606rveoccpgh (Proctofoam) 1 % foam Indications: Hemorrhoids, unspecified hemorrhoid type Insert into the rectum every 2 (two) hours if needed for hemorrhoids for up to 10 days 15 g 09/07/2024 5ActiveprednisoLONE 3 mg/ml oral solution (1 source)Corticosteroidtake 5 mL by mouth once daily at mealtimeprednisolone 15 mg/5 mL oral solution take 5 milliliter by oral route every day with food 15 MG - ActivepredniSONE 20 mg oral tablet (8 sources)Start: 76-27-5435tvbl 1 tablet by mouth twice dailyStart: 02-03-2025 take 1 tablet by mouth twice dailypredniSONE (DELTASONE) 20 mg tablet Take 20 mg by mouth two times a day. 02/03/2025 ActiveStart: 02-03-2025 End: 55-28-3787gnhx 3 tablets by mouth once daily, then take 2 tablets by mouth once daily, then take 1 tablet by mouth once dailyPrednisone 20 mg tablet Discontinued 20 MG PO .COMPLEX 18 February 03, 2025 12:00am March 22, 2025 8:18am Take 3 tabs po daily x 3 days, then take 2 tabs po daily x 3 days, then take 1 tab po daily x 3 days.progesterone 100 mg vaginal insert (1 source)Progesteroneprogesterone (ENDOMETRIN) 100 mg vaginal insert Insert 2 tablets (200 mg total) into the vagina in the morning and 2 tablets (200 mg total) before bedtime. ActiveProgesterone 200 MG suppository (20 sources)Start: 89-98-4674Zlkycadhfakl 200 MG suppository Indications: Miscarriage ([facility]) Insert 200 mg into the vagina atbedtime 30 suppository 2 05/19/2024 ActiveStart: 35-64-2732Sttjlrldougx 200 MG suppository Indications: Miscarriage Insert 200 mg into the vagina at bedtime 30 suppository 2 05/19/2024 Activeramipril 1.25 mg oral capsule (1 source)Angiotensin Converting Enzyme Inhibitortake 1 capsule by mouth once dailyAltace 1.25 mg capsule take 1 capsule by oral route every day 1.25 MG - Activesemaglutide, weight loss, (WEGOVY) 0.25 mg/0.5 mL pen injector (3 sources)Start: 56-51-4297undzny 0.25 mg by subcutaneous injection every week semaglutide, weight loss, (WEGOVY) 0.25 mg/0.5 mL pen injector Inject 0.25 mg subcutaneously one time a week. 2 mL 1 03/01/2025 ActiveStart: 04-08-2024 End: 79-61-3668xrcthx 0.5 mL by subcutaneous injection every weeksemaglutide, weight loss, (WEGOVY) 0.25 mg/0.5 mL pen injector Indications: Obesity, Class III, RHU14-51.9 (morbid obesity) ([facility]) Inject 0.5 mL subcutaneously one time a week for 28 days. 2 mL 04/08/2024 05/06/2024 Activesemaglutide, weight loss, (WEGOVY) 0.5 mg/0.5 mL pen injector (1 source)Start: 05-09-2024 End: 01-67-0188bgxxhmpoess, weight loss, (WEGOVY) 0.5 mg/0.5 mL pen injector Indications: Obesity, Class III, BMI 40-49.9 (morbid obesity) ([facility]) Inject 0.5 mL subcutaneously one time a week. Start after completing 0.25mg dose. Patient should start on May 09, 2024. 2 mL 2 05/09/2024 08/01/2024 Active tirzepatide, weight loss (ZEPBOUND) 5 mg/0.5 mL pen injector (3 sources)Start: 05-09-2024 End: 40-76-9557kdjvwqnssmb, weight loss (ZEPBOUND) 5 mg/0.5 mL pen injector Indications: Obesity, Class III, BMI 40-49.9 (morbid obesity) ([facility]) Inject 5 mg subcutaneously one time a week. Start after completing 2.5mg dose. Patient should start on May 09, 2024. 2 mL 2 05/09/2024 04/08/2024 Discontinued (Cost of medication)tiZANidine 4 mg oral tablet (3 sources)Central alpha-2 Adrenergic AgonistStart: 05-17-2024 End: 83-58-6274yvQOBwvklb (Zanaflex) 4 MG tablet Indications: Strain of thoracic back region Take 1 tablet (4 mg) by mouth as needed at bedtime for muscle spasms for up to 7 days 7 tablet 05/17/2024 06/06/2024 DiscontinuedtraZODone hydrochloride 50 mg oral tablet (2 sources)Serotonin Reuptake Inhibitortake 1 tablet by mouth at bedtime traZODone (Desyrel) 50 MG tablet Take 50 mg by mouth at bedtime Active Completed/Discontinued Medications MedicationDrug Class(es)DatesSig (Normalized)Sig (Original)aspirin 81 mg chewable tablet (20 sources)Platelet Aggregation Inhibitor, Nonsteroidal Anti-inflammatory Drug Start: 02-03-2025 End: 24-15-3563Qqmbyxx 81 mg tablet,chewable Discontinued PO February 03, 2025 12:00am February 03, 2025 10:52amStart: 07-16-2023 End: 43-96-3975fetakzk 81 MG chewable tablet Indications: Miscarriage (HHS-HCC) Chew 1 tablet (81 mg) Daily 30 tablet 11 05/18/2024 05/18/2025 Activebiotin 5 mg disintegrating oral tablet (4 sources) End: 16-33-2241kxut 2 capsules by mouth once dailybiotin 5,000 mcg ODT Take 2 capsules by mouth once daily. 0 01/28/2024 DiscontinuedBiotin Not-Taking buPROPion hydrochloride 100 mg oral tablet (20 sources)AminoketoneStart: 04-18-2025 End: 35-66-0290Arybyyueh Hcl 100 mg tablet Discontinued MG PO April 18, 2025 12:00am April 18, 2025 4:12pmStart: 02-13-2025 End: 92-47-6308nprt 1 tablet by mouth twice dailyBupropion Hcl 100 mg tablet Discontinued 100 MG PO Twice daily March 22, 2025 12:00am March 22, 2025 6:39pmStart: 02-13-2025 End: 02-48-9487uonu 1 tablet by mouth three times dailybuPROPion (WELLBUTRIN) 100 mg tablet Take 100 mg by mouth three times a day. 02/13/2025 ActiveStart: 04-14-2024 End: 58-46-0532mqKVRZgyc (WELLBUTRIN) 75 mg tablet Indications: Obesity, Class III, BMI 40-49.9 (morbid obesity) (HCC) Take one tablet one daily for 7 days, then increase to one tablet twice daily. 60 tablet 2 04/14/2024 Activetake 1 tablet by mouth once daily in the morningAplenzin 174 mg tablet,extended release take 1 tablet by oral route every day in the morning 174 MG- Activecephalexin 500 mg oral capsule (20 sources)Cephalosporin AntibacterialStart: 12-22-2024 End: 19-55-0375ahay 1 capsule by mouth four times dailyCephalexin 500 mg capsule Discontinued 500 MG PO Four times daily December 27, 2024 12:00am December 31, 2024 10:25amStart: 08-29-2024 End: 36-51-5712birz 1 capsule by mouth twice dailyCephalexin 500 mg capsule Discontinued 500 MG PO Twice daily 14 7 August 29, 2024 1:00am November 22, 2024 12:51amcholecalciferol 0.125 mg oral tablet (1 source)Vitamin D End: 64-61-2904pezo 1 tablet by mouth once dailycholecalciferol (VITAMIN D3) 5,000 unit tab Take 5,000 Units by mouth once daily. 0 01/28/2024 Discontinued clobetasol propionate 0.5 mg/ml topical solution (1 source)CorticosteroidStart: 10-02-2016 End: 24-73-6268Pivfcawmeb Propionate (TEMOVATE) 0.05 % external solution Indications: Alopecia areata Apply 8-10 drops daily to the scalp 1 Bottle 1 10/02/2016 01/28/2024 Discontinueddocosahexaenoic acid 200 mg oral capsule (7 sources)Start: 11-22-2024 End: 90-17-4485cerm 1 capsule by mouth once dailyDocosahexaenoic Acid ( Dha) 200 mg capsule Discontinued 200 MG PO Daily November 22, 2024 12:00am February 03, 2025 10:52amdocusate sodium 100 mg oral capsule (7 sources)Start: 01-03-2025 End: 79-17-9149wiiy 1 capsule by mouth once dailyDocusate Sodium (Colace) 100 mg capsule Discontinued 100 MG PO Daily January 03, 2025 12:00am February 03, 2025 10:52amibuprofen 600 mg oral tablet (7 sources)Nonsteroidal Anti-inflammatory DrugStart: 01-03-2025 End: 87-98-0316quwg 4 tablets by mouth every twenty-four hours for painIbuprofen 600 mg tablet Discontinued 600 MG PO Every 6 hours as needed for pain January 03, 2025 12:00am February 03, 2025 10:52am do not exceed 4 doses in a 24 hour periodlamoTRIgine 25 mg oral tablet (11 sources)Mood Stabilizer, Anti-epileptic AgentStart: 12-04-2023 End: 19-40-8807erbn 1 tablet by mouth once dailyLamotrigine (Lamictal) 25 mg tablet Discontinued 25 MG PO Daily December 04, 2023 12:00am November 22, 2024 12:51am magnesium oxide 400 mg oral tablet (20 sources)Start: 02-03-2025 End: 31-82-1102Udjxmbymj Oxide 400 mg (241.3 mg magnesium) tablet Discontinued MG PO February 03, 2025 12:00am February 03, 2025 10:52amStart: 10-12-2024 End: 79-83-3290carq 1 tablet by mouth at bedtimemagnesium oxide (Mag-Ox) 400 (240 Mg) MG tablet Take 400 mg by mouth at bedtime 11/10/2024 Aifycu21 hr metFORMIN hydrochloride 500 mg extended release oral tablet (20 sources)BiguanideStart: 01-28-2024 End: 20-92-8905kepi 1 tablet by mouth every twenty-four hours in the morning metFORMIN XR (Glucophage-XR) 500 MG 24 hr tablet Take 1,000 mg by mouth in the morning and 1,000 mgin the evening. Take with meals. 01/28/2024 05/17/2024 Discontinued (Side effects)Start: 01-28-2024 End: 75-73-5233zqkk 2 tablets by mouth twice daily at mealtimemetFORMIN ER (GLUCOPHAGE XR) 500 mg 24 hr tablet Indications: Irregular periods Take 2 tablets by mouth two times a day with meals. 120 tablet 11 01/28/2024 04/10/2024 Discontinued (Side Effects)Start: 12-04-2023 End: 94-60-4180tieu 1 tablet by mouth twice dailyMetformin 500 mg tablet Discontinued 500 MG PO Twice daily December 04, 2023 12:00am November 22, 2024 12:51am minoxidil 50 mg/ml topical spray (1 source)Arteriolar VasodilatorStart: 10-02-2016 End: 48-39-3220Dxcwwpvif 5 % soln Indications: Alopecia areata Apply once daily to scalp 1 Bottle 2 10/02/2016 01/28/2024 DiscontinuedPNV NO.115/IRON FUMARATE/FA ( #[id number] ACID ORAL) (1 source) End: 23-06-2781ywku 1 tablet by mouth once dailyPNV NO.115/IRON FUMARATE/FA ( #[id number] ACID ORAL) Indications: Alopecia areata Take 1 tablet by mouth once daily. 0 01/28/2024 DiscontinuedPrenatal Complete (3 sources) Complete Not-Takingsertraline 50 mg oral tablet (9 sources)Serotonin Reuptake InhibitorStart: 02-25-2024 End: 70-65-6990nami 1 tablet by mouth once dailysertraline (Zoloft) 50 MG tablet Indications: Moderate episode of recurrent major depressive disorder (CMS/HCC) Take 1 tablet (50 mg) by mouth Daily 90 tablet 03/18/2024 05/17/2024 Discontinued (Therapy completed)spironolactone 50 mg oral tablet (1 source)Aldosterone AntagonistStart: 02-26-2017 End: 51-24-3783uehi 1 tablet by mouth once dailyspironolactone (ALDACTONE) 50 mg tablet Indications: Alopecia areata Take 1 tablet by mouth once daily. 30 tablet 5 02/26/2017 01/28/2024 Discontinuedtirzepatide, weight loss (ZEPBOUND) 2.5 mg/0.5 mL pen injector (3 sources)Start: 04-08-2024 End: 67-12-2726zcsicg 2.5 mg by subcutaneous injection every weektirzepatide, weight loss (ZEPBOUND) 2.5 mg/0.5 mL pen injector Indications: Obesity, Class III, JWB63-95.9 (morbid obesity) (HCC) Inject 2.5 mg subcutaneously one time a week. 2 mL 04/08/2024 04/08/2024 Discontinued (Cost of medication)triamcinolone acetonide 10 mg/ml injectable suspension (1 source)CorticosteroidStart: 04-24-2017 End: 58-23-1431nzvmzczujzvtz acetonide (KENALOG 10) 10 mg/mL injection Indications: Alopecia areata Intralesional kenalog 5 mg/ml up to 3 ml to areas of hair loss. May repeat every 4-6 weeks. 3 mL 4 04/24/2017 01/28/2024 Pnkxsdvtjprp75 hr venlafaxine 37.5 mg extended release oral capsule (6 sources)Serotonin and Norepinephrine Reuptake InhibitorStart: 03-22-2025 End: 37-66-4709smut 1 capsule by mouth once daily, then take 2 capsules by mouth once dailyVenlafaxine (Effexor Xr) 37.5 mg capsule,extended release 24hr Discontinued 75 MG PO Daily 60 March 23, 2025 8:45pm April 03, 2025 1:59pm 1 pill daily for 7 days, then increase to 2pills daily Problems Active Problems Problem ClassificationProblemDateDocumented DateEpisodic/ChronicAdjustment disorders (3 sources)Adjustment disorder with depressed mood; Translations: [Adjustment disorder with depressed mood]Onset: 186728-97-4370Vvwiazz Administrative/social admission (4 sources)Patient encounter status; Translations: [Dietary counseling and surveillance]52-45-7451EvovnmyhPytrotax reactions (6 sources)Contact dermatitis; Translations: [Unspecified contact dermatitis, unspecified cause]28-41-7131WgqjwbdvZfwhfro disorders (20 sources)Mixed anxiety and depressive disorder; Translations: [Anxiety disorder, unspecified]Onset: 500396-66-9511YmuxlalAmfowa of cervix (2 sources)Cervical intraepithelial neoplasia grade 1; Translations: [Low grade squamous intraepithelial lesion on cytologic smear of cervix (LGSIL)]07-14-2024 EpisodicDeficiency and other anemia (1 source)Iron deficiency anemia; Translations: [Iron deficiency anemia, unspecified]22-36-2877TcmksfvsNleyzipi mellitus without complication (1 source)Impaired fasting glycemia; Translations: [Impaired fasting glucose] 18-40-4710TczqpgvzIidck or threatened labor (6 sources)Uterine contractions present; Translations: [False labor, unspecified]Onset: 629386-33-1999QnfoxlzmUahqzbujyvdkt symptoms and ill- defined conditions (2 sources)Leukocytes in urine; Translations: [Other abnormal findings in urine] 91-58-7523KpktfkvfQmwytscg; including migraine (18 sources)Headache; Translations: [Nonintractable headache, unspecified chronicity pattern, unspecified headache type]39-17-7466PqtcxueqYegjhmmutrd (18 sources)Hemorrhoids; Translations: [Unspecified hemorrhoids]09-07-2024 EpisodicImmunizations and screening for infectious disease (5 sources)Contact with and (suspected) exposure to other viral communicable diseases; Translations: [Encounter for screening for other viral diseases]Onset: 05-16-2021 Resolved: 59-63-4605RpwrqtczSbhigzzsrjyl diseases of female pelvic organs (2 sources)Acute vaginitis; Translations: [Acute vaginitis]53-42-5691Zpshwwgt Menstrual disorders (20 sources)Break-through bleeding; Translations: [Excessive and frequent menstruation with irregular cycle]Onset: hronic Miscellaneous mental health disorders (1 source)Primary insomnia; Translations: [PRIMARY INSOMNIA]Onset: 08-07-2022 ChronicMood disorders (20 sources)Mood disorder; Translations: [Unspecified mood [affective] disorder] Onset: 566436-53-9501KqdejfvLbfgq complications of ; puerperium affecting management of mother (12 sources)Anemia during the puerperium; Translations: [Anemia of the puerperium]29-58-1035FydrpqnWyxti complications of (1 source)Maternal obesity complicating , childbirth and the puerperium, antepartum; Translations: [Obesity complicating , unspecified trimester]Onset: 525754-00-5462BogaekpImjkj complications of (10 sources)Low maternal weight gain; Translations: [Low weight gain in , second trimester]57-80-1130IgejtzwmCuovk complications of (1 source)Maternal care for abnormalities of the heart rate or rhythm, third trimester, not applicable or unspecified; Translations: [Maternal care for abnormalities of the heart rate or rhythm, third trimester, not applicable or unspecified]Onset: 57-48-4876NikfyipzDlequ connective tissue disease (2 sources)Pain in left foot; Translations: [Pain in left foot]05-04-2025 EpisodicOther endocrine disorders (20 sources)Hyperinsulinism; Translations: [Other hypoglycemia]Onset: 08-18-2023 48-28-8262AkifonbSnmlj endocrine disorders (20 sources)Polycystic ovary syndrome; Translations: [Polycystic ovarian syndrome]Onset: 765417-92-7033JfpghtxKvzhi endocrine disorders (3 sources)Polycystic ovarian syndrome; Translations: [PCOS (polycystic ovarian syndrome)]Onset: 52-74-7826GjwpudtSezxw female genital disorders (12 sources)Vaginal discharge; Translations: [Other specified noninflammatory disorders of vagina]57-10-8606AmdhluukBbiys nutritional; endocrine; and metabolic disorders (20 sources)Body mass index 40+ - severely obese; Translations: [Morbid (severe) obesity due to excess calories]Onset: 503720-35-1611AkyniupIadtq nutritional; endocrine; and metabolic disorders (1 source)Severe obesity; Translations: [Morbid (severe) obesity due to excess calories]56-04-5565PgqrgerVlcer nutritional; endocrine; and metabolic disorders (1 source)Morbid (severe) obesity due to excess calories; Translations: [Obesity, Class III, BMI 40-49.9 (morbid obesity) ([facility])]Onset: 00-51-6915Mppxnoi Other nutritional; endocrine; and metabolic disorders (20 sources)Abnormal weight loss; Translations: [Abnormal weight loss]08-18-2024 EpisodicOther and delivery including normal (20 sources)Normal ; Translations: [Encounter for supervision of normal first , first trimester]Onset: 988416-76-4290HjkmacziEqwrg screening for suspected conditions (not mental disorders or infectious disease) (17 sources)Increased testosterone level; Translations: [Other specified abnormal findings of blood chemistry]Onset: 625300-18-5900CoepshpcDvymf skin disorders (2 sources)Ingrowing toenail; Translations: [Ingrowing nail]28-04-6026Lizzpuvj Other upper respiratory disease (1 source)Allergic rhinitis, unspecifiedOnset: 12-09-2021 Resolved: 90-14-0502IeexskfYpeax upper respiratory disease (20 sources)Allergic rhinitis; Translations: [Allergic rhinitis, unspecified] Onset: 926393-94-9914JcrxuisPspwcnxq codes; unclassified (4 sources)Obstructive sleep apnea (adult) (pediatric); Translations: [OBSTRUCTIVE SLEEP APNEA]Onset: 67-65-6344DnahuctWczfgkzq codes; unclassified (2 sources)Insomnia; Translations: [Other insomnia]20-13-8707BlipkkuCozxcnky codes; unclassified (1 source)Disturbance in sleep behavior; Translations: [Sleep disorder, unspecified]89-44-1586NbpbnxokVucpomcx codes; unclassified (2 sources)Gestation period, 12 weeks; Translations: [12 weeks gestation of ]22-34-7618ZbmxhrfsJhahyzid codes; unclassified (2 sources)Gestation period, 17 weeks; Translations: [17 weeks gestation of ]66-45-2362EbgjxxhpHqfwgbmw codes; unclassified (2 sources)Gestation period, 19 weeks; Translations: [19 weeks gestation of ]84-34-2752RffoygrzBgwubqdu codes; unclassified (4 sources)Gestation period, 20 weeks; Translations: [20 weeks gestation of ]72-57-0214SkpopnpkKqzhmams codes; unclassified (2 sources)Gestation period, 24 weeks; Translations: [24 weeks gestation of ]33-29-4654VithwrfqUhphfkpy codes; unclassified (2 sources)Gestation period, 25 weeks; Translations: [25 weeks gestation of ]88-88-4795ZqzqwsglCxpcywje codes; unclassified (2 sources)Gestation period, 29 weeks; Translations: [29 weeks gestation of ]21-05-6952XnajtnugMpxpwyez codes; unclassified (2 sources)Gestation period, 32 weeks; Translations: [32 weeks gestation of ]07-37-3183PbaljyfvVnriuror codes; unclassified (2 sources)Gestation period, 33 weeks; Translations: [33 weeks gestation of ]93-41-5635JowlqjqoLutblaay codes; unclassified (3 sources)Gestation period, 34 weeks; Translations: [34 weeks gestation of ]79-11-8904FuolkoisTpitnfjs codes; unclassified (3 sources)Gestation period, 35 weeks; Translations: [35 weeks gestation of ]96-17-9078AqgjpnerNyipywxm codes; unclassified (3 sources)Gestation period, 36 weeks; Translations: [36 weeks gestation of ]38-57-0711PzktlopkWzniwmrs codes; unclassified (12 sources)History of past delivery; Translations: [Personal history of other genital system and obstetric disorders]52-90-4174UneiitbuPmxnlrhfk-related disorders (20 sources)Cannabis abuse; Translations: [Cannabis abuse, uncomplicated]Onset: 381034-55-7266PqlnkpqUownwgjdfzgl (6 sources)Keep MFM appointment. 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] Onset: 007719-68-6213KkegmevrLdbyjzsntcjf; infection of eye (except that caused by tuberculosis or sexually transmitteddisease) (1 source)Acute atopic conjunctivitis, right eyeOnset: 12-09-2021 Resolved: 36-85-7054VgjlrzigYgtj disorders (20 sources)Mood disordersOnset: 663533-14-4398Nmsbotgfdzi chest pain (20 sources)Chest pain; Translations: [Other chest pain]Onset: 12-10-2023 64-06-2519YyubycitUdgom complications of (1 source)Decreased movements, second trimester, not applicable or unspecified; Translations: [Decreased movements, second trimester, not applicable or unspecified]Onset: 20-17-7933FuiqyfdyUrwty complications of (1 source)Other specified related conditions, second trimester; Translations: [Other specified related conditions, second trimester] Onset: 53-86-4810GmzqkjziUjwpi nervous system disorders (20 sources)Paresthesia of foot ; Translations: [Paresthesia of skin]Onset: 501277-03-6256CeepjpcfTeueq skin disorders (20 sources)Alopecia; Translations: [Nonscarring hair loss, unspecified]Onset: 449217-31-5672SovwbhvpVsoqn skin disorders (20 sources)Eruption; Translations: [Rash and other nonspecific skin eruption] Onset: 188733-13-8271TgahqrvcIujfi upper respiratory disease (20 sources)Bleeding from nose; Translations: [Epistaxis]Onset: 11-24-2023 60-27-1149OxgwjtveQokgh upper respiratory infections (20 sources)Laryngitis; Translations: [Acute laryngitis]Onset: 08-18-2023 88-73-5058ScuoxsywYgraxyozfrxrcm and other problems of amniotic cavity (19 sources)Polyhydramnios; Translations: [Polyhydramnios, second trimester, not applicable or unspecified]Onset: 599079-83-8732PsldatkeNjpavrqc codes; unclassified (20 sources)Insomnia; Translations: [Insomnia, unspecified]Onset: 08-18-2023 07-28-4933CrjoqhvvOgxjfdt and strains (20 sources)Strain of thoracic region; Translations: [Strain of muscle and tendon of back wall of thorax, initial encounter]Onset: 677884-32-0954 EpisodicUnclassified (1 source)dl (chief complaint)Onset: 31-01-0741Hwdec infection (20 sources)COVID-19; Translations: [Other specified viral infection]Onset: 016735-74-2250HmgbxjpwEjbxj infection (1 source)COVID-19Onset: 05-16-2021 Resolved: 33-25-8531KTFVCRU: Highlighted row has been ruled out!Unclassified (3 sources)No known active -05-3528 Results Test NameValueInterpretationReference RangeFacilityGLUCOSE 1 HOURon 04-10-2025 Glucose 1 Hr post Unsp challenge [Mass/Vol]112 mg/dLNormalSee CommentOhioHealth Shelby Hospital on above:Order Comment: Specimen Type: BLOOD SPECIMEN Ordering Facility: [facility] Address: [address] [place], [place] [id number] Comment: A diagnostic cutoff for this time point is not established, and should be clinically determined. [place] [employer] guidelines state a diabetes mellitus diagnosis is preliminarily made when the fasting plasma glucose meets or exceeds 126 mg/dL and/or the 2 hr glucose tolerance meets or exceeds 200 mg/dL. In the absence of unequivocal hyperglycemia, results should be confirmed with repeat testing. Patients are at increased risk for diabetes mellitus (prediabetes) when the fasting glucose is 100 to 125 mg/dL or the 2 hr glucose tolerance result is 140 to 199 mg/dL.Performed By: #### GLU60 #### [facility] CLIA [id number] [address] [place] [address] STATES OF AMERICAGLUCOSE, 0 HOURon 04-10-2025 Glucose baseline [Mass/Vol]95 mg/rHOkrtjv34-26RkombsbspOhioHealth Shelby Hospital on above:Order Comment: Specimen Type: BLOOD SPECIMEN Ordering Facility: [facility] Address: [address] [place], [place] [id number] Comment: [place] [employer] guidelines state a diabetes mellitus diagnosis is preliminarily made when the fasting plasma glucose meets or exceeds 126 mg/dL and/or the 2 hr glucose tolerance meets or exceeds 200 mg/dL. In the absence of unequivocal hyperglycemia, results should be confirmed with repeat testing. Patients are at increased risk for diabetes mellitus (prediabetes) when the fasting glucose is 100 to 125 mg/dL or the 2 hr glucose tolerance result is 140 to 199 mg/dL. Performed By: #### GT0 #### [facility] CLIA [id number] [address] [place] [address] [place] AMERICAGLUCOSE, 2 HOURon 04-10-2025 Glucose 2 Hr post Unsp challenge [Mass/Vol]90 mg/eTXisqnt34-571HfmpgsledOhioHealth Shelby Hospital on above:Order Comment: Specimen Type: BLOOD SPECIMEN Ordering Facility: [facility] Address: [address] [place], [place] [address]Result Comment: [place] [employer] guidelines state a diabetes mellitus diagnosis is preliminarily made when the fasting plasma glucose meets or exceeds 126 mg/dL and/or the 2 hr glucose tolerance meets or exceeds 200 mg/dL. In the absence of unequivocal hyperglycemia, results should be confirmed with repeat testing. Patients are at increased risk for diabetes mellitus (prediabetes) when the fasting glucose is 100 to 125 mg/dL or the 2 hr glucose tolerance result is 140 to 199 mg/dL. Performed By: #### GT2 #### [facility] CLIA [id number] [address] [place] [address] STATES OF AMERICACNPNon 31-48-5965GWER Telephone (EMQ) SHANEKA NUGENT ([id number]) 4 F Date Time Provider Department 03/13/25 [facility] During your visit today, we recorded the following information about you: Nadeem Saeed 03/13/2025 11:32 AM Signed Wegovy 0.25mg- NDC Not Payable Allergies As of Date: 03/13/2025 Noted Allergy Reaction METFORMIN 02/06/2025 6 - Diarrhea LAMOTRIGINE 01/12/2024 2 - Rash Date Reviewed: 02/06/2025 Reviewed by: Juany Larsen MA - Fully Assessed Reason for Visit: Medication Preauthorization [914] Cmt: Wegovy 0.25mg- Not covered Prescriptions as of 03/13/2025 - buPROPion (WELLBUTRIN) 100 mg tablet Take 100 mg by mouth three times a day. - levonorgestrel-ethinyl estradiol 0.15-0.03 mg per tab Take 1 tablet by mouth once daily. - semaglutide, weight loss, (WEGOVY) 0.25 mg/0.5 mL pen injector Inject 0.25 mg subcutaneously one time a week. - predniSONE (DELTASONE) 20 mg tablet Take 20 mg by mouth two times a day. - ferrous sulfate 325 mg (65 mg iron) EC tablet Take 325 mg by mouth once daily. - aspirin 81 mg chewable tablet chew 1 tablet (81 mg) daily - magnesium oxide (MAG-OX) 400 mg (241.3 mg magnesium) tablet Take 1 tablet by mouth daily at bedtime. - naltrexone 50 mg tablet Take 1/2 tablet twice daily - buPROPion (WELLBUTRIN) 75 mg tablet Take one tablet one daily for 7 days, then increase to one tablet twice daily. Problem List As Of Date: 03/13/2025 (None) Encounter Status:Closed by NADEEM SAEED on 03/13/25[facility] [id number] Visit (ENDOMN) SHANEKA NUGENT ([id number]) 4 F Date Time Provider Department 03/01/25 2:00 PM [facility] ROLLINS During your visit today, we recorded the following information about you: Pulse Blood pressure Weight 102/minute 114/79 101.2 kg Carole Rollins MD 03/01/2025 2:57 PM Addendum - Begin a combined oral contraceptive pill (1 tablet daily) to manage your PCOS and provide effective contraception. - After you have taken the pill for 1 month, we will plan to start spironolactone 25 mg daily; have your potassium checked before you begin. - Continue your bupropion (Wellbutrin); contact the provider who prescribed it to confirm you should be taking 100 mg three times a day (300 mg total) as intended. - Initiate once-weekly semaglutide (Wegovy) injections at 0.25 mg; your prescription has been sent to [facility]. Plan to increase the dose every 4 weeks as tolerated to enhance weight-loss effects. . - Gradually increase your physical activity at home with walking and light resistance exercises. - Plan a virtual follow-up in 1 month to review your contraceptive use and begin spironolactone. - Arrange a brief virtual check-in in about 1 week to discuss insurance approval for the weight-loss medication and determine next steps. Thank you for choosing the [facility] Department of Endocrinology, Diabetes and Metabolism. Did you know that you need to call 48 hours in advance of your scheduled visit, if you are unable to make your appointment? The End[facility]inology and Metabolism [place] thanks you for your commitment, because patients not showing to their appointment results in a lost opportunity for patients to receive world class health care at the [facility]. To Cancel an appointment, please choose one of the following: - Call the Appointment Call Center at [phone] - From [employer], Go to Appointments - Cancel Appts If cancelling, consider your need to reschedule to prevent further delays in your care. To Schedule an appointment, please choose one of the following: - Call the Appointment Call Center at [phone] - From [employer], Go to Appointments - Request an Appt Nakul Ruby MD 03/02/2025 4:48 AM Signed [facility] POLY[facility] OVARIAN SYNDROME FOLLOW UP NOTE HPI: Shaneka Nugent is a 24 year old female presenting for follow up of PCOS. PRO: 02/06/25 Endocrine history: (copied from prior notes and updated) - Diagnosed with PCOS at age 15; diagnosis was later retracted and then confirmed again around 2022. - Menarche at age 11; initially regular menses, became irregular around age 14-15. - Reports oligomenorrhea, with 9-10 periods per year during adolescence- - Experienced amenorrhea for up to 3 months at a time after age 20. - Reports alopecia with phases of thinning and thickening hair. - Hirsutism-minimal mustache and abdominal hair. - Infertility- Difficulty conceiving; took 2 years to conceive child. h/o miscarriage in May 2023. Current child- approx 7 weeks NIH Criteria oligo/arovulation: yes, no evidence of hyperandrogenism: hirsutism and established biochemical evidence of hyperandrogenism other causes excluded: yes Weight Gain: - Significant weight gain over the past 4-5 years. - High school weight: 180-190 lbs; highest weight: 245 lbs. - Current weight: 221 lbs. - Lost 20 lbs between February and April of last year. - Weight fluctuated during ; lowest weight during was 210 lbs, highest was 230 lbs. - Reports weight gain after decreased milk production. - Tried various diets and increased physical activity with minimal success in weight loss. - Previously took Wellbutrin and naltrexone for weight loss with good results; stopped taking them after becoming . Interval history: - Previously attempted but switched to formula feeding recently - Expresses interest in starting oral contraceptive pills; previously used an unknown brand during teenage years. - Also expressed interest in starting weight loss medications, and spironolactone. - Recently diagnosed with depression and was started on Wellbutrin 100 BD ROS: No chest pain, palpitations History: PAST MEDICAL HISTORY: No past medical history on file. PAST SURGICAL HISTORY: No past surgical history on file. FAMILY HISTORY: No family history on file. SOCIAL HISTORY: Social History Tobacco Use Smoking status: Never MEDICATIONS: Current Outpatient Medications on File Prior to Visit Medication Sig aspirin 81 mg chewable tablet chew 1 tablet (81 mg) daily magnesium oxide (MAG-OX) 400 mg (241.3 mg magnesium) tablet Take 1 tablet by mouth daily at bedtime. naltrexone 50 mg tablet Take 1/2 tablet twice daily buPROPion (WELLBUTRIN) 75 (more content not included)...NormalUniversity Hospitals St. [facility] 15-46-7333GJOW-S [Mass/Vol]452.2 ug/vBQxbs073.0-407.0 [facility] on above:Order Comment: Specimen Type: BLOOD SPECIMEN Ordering Facility: [facility] Address: [address] [place], [place] [id number] Comment: Reference ranges are age and gender specific. For additional information, referencerange tables can be found in the laboratory test directory. The normal values are based on the following source: Dehydroepiandrosterone sulfate (DHEA S) [package insert V 17.0 [place]ese]. [facility], [place], [place]: February 2013.Performed By: #### 3016-3, DHEAS #### [facility] CLIA [id number] [address] [place] [address] [place] CWFERFZZbK2c (Bld)on 02-14-2025 Average glucose Estimated from glycated hemoglobin (Bld) [Mass/Vol]88 mg/dL NormalOhioHealth Shelby Hospital on above:Order Comment: Specimen Type: BLOOD SPECIMEN Ordering Facility: [facility] Address: [address] [place] [id number] Comment: eAG: (Estimated average glucose) is a calculated value from HgbA1c and is corporate sales representative of the average blood glucose level in the last 2-3 month period.Performed By: #### 3016-3, DHEAS #### [facility] CLIA [id number] [address] [place] [address] [place] OF YPMZFDKCnH3i (Bld) [Mass fraction] 4.7 %Normal4.3-5.6CK[facility] on above:Order Comment: Specimen Type: BLOOD SPECIMEN Ordering Facility: [facility] Address: [address] [place] [id number] Comment: [place] [employer] guidelines indicate that patients with HgbA1c in the range 5.7-6.4% are at increased risk for development of diabetes, and intervention by lifestyle modification may be beneficial. HgbA1c greater or equal to 6.5% is considered diagnostic of diabetes.Performed By: #### 3016-3, DHEAS #### [facility] CLIA [id number] [address] [place] [address] STATES OF [facility] YOUNGSTOWNTESTOSTERONE, FREE AND TOTAL, BY EQUILIBRIUM DIALYSIS AND MASS SPECTROMETRYon 03-43-5583Mbgadtrvdypj [Mass/Vol]20.2 ng/dLNormal8.0-60.0[facility] on above: Order Comment: Specimen Type: BLOOD SPECIMEN Ordering Facility: [facility] Address: [address] [place], [place] [address]Result Comment: Testing performed by Liquid Chromatography-Tandem Mass Spectrometry (LC-MS/MS). This test was developed, and its performance characteristics determined by the [facility] Department of Pathology and Laboratory Medicine. It has not been cleared or approved by the FDA. The [facility] Pathology and Laboratory Medicine is regulated under CLIA as qualified to perform high-complexity testing. This test is used for clinical purposes. It should not be regarded as investigational or for research.Performed By: #### 3016-3, DHEAS #### [facility] CLIA [id number] [address] [place] [address] STATES OF [facility] YOUNGSTOWNTestosterone Free [Mass/Vol] 0.20 ng/dLNormal<=0.43[facility] on above:Order Comment: Specimen Type: BLOOD SPECIMEN Ordering Facility: [facility] Address: [address] [place], [place] [address]Result Comment: Testing performed by equilibrium dialysis (ED) and Liquid Chromatography-Tandem Mass Spectrometry (LC-MS/MS). This test was developed, and its performance characteristics determined by the [facility] Department of Pathology and Laboratory Medicine. It has not been cleared or approved by the FDA. The [facility] of Pathology and Laboratory Medicine is regulated under CLIA as qualified to perform high-complexity testing. This test is used for clinical purposes. It should not be regarded as investigational or for research.Performed By: #### 3016-3, DHEAS #### [facility] CLIA [id number] [address] [place] [address] OF [facility] YOUNGSTOWNTS SerPl-aCncon 02-14-2025 TSH Qn1.210 m[IU]/LNormal0.270-4.200[facility] on above: Order Comment: Specimen Type: BLOOD SPECIMEN Ordering Facility: [facility] Address: [address] [place], [place] [id number] Comment: If the patient is , TSH reference range varies by gestational period: First Trimester (weeks 9-12): 0.180-2.990 mIU/L Second Trimester: 0.110-3.980 mIU/L Third Trimester: 0.480-4.710 mIU/L Andrae Brice et al. A Practical Approach for the Verifications and Determination of Site- and Trimester-Specific Reference Intervals for Thyroid Function tests in . Thyroid, 2019:29:3:412-420.Anthony E, et al. 2017 Guidelines of the [place] Thy[employer] Association for the Diagnosis and Management of Thyroid Disease during and the . Thyroid, 2017:27:3:315-389. Performed By: #### 3016-3, DHEAS #### [facility] CLIA [id number] [address] [place] [address] OF [facility] YOUNGSTOWNCNOVon 15-77-8001QTSTXbrofk Visit (ENDOMN) SHANEKA NUGENT ([id number]) 4 F Date Time Provider Department 02/06/25 11:00 AM [facility] ROLLINS During your visit today, we recorded the following information about you: Pulse Blood pressure Weight 85/minute 120/83 100.6 kg Carole Rollins MD 02/06/2025 11:52 AM Addendum - Obtain the following blood tests before your next visit, using the enclosed lab orders: fasting total, free testosterone, DHEA-S (dehydroepiandrosterone sulfate), thyroid-stimulating hormone (TSH), and hemoglobin A1c. You may take these orders to the [facility] or another facility of your choice--please bring the results with you. - A referral to our endocrine dietitian has been placed. Contact their office to schedule a video or in-person visit for personalized dietary and lifestyle guidance. - Plan to return for an endocrinology follow-up at the end of March to review your lab results and discuss weight management strategies, including potential medication options once you?ve decided on how long you wish to breastfeed. - Continue routine and follow-up with your reimbursement spec as needed for milk-production support. Thank you for choosing the [facility] [facility] Department of Endocrinology, Diabetes and Metabolism. Did you know that you need to call 48 hours in advance of your scheduled visit, if you are unable to make your appointment? The [facility]inology [facility] Metabolism [place] thanks you for your commitment, because patients not showing to their appointment results in a lost opportunity for patients to receive [facility] care at the [facility]. To Cancel an appointment, please choose one of the following: - Call the Appointment Call Center at [phone] - From [employer], Go to Appointments - Cancel Appts If cancelling, consider your need to reschedule to prevent further delays in your care. To Schedule an appointment, please choose one of the following: - Call the Appointment Call Center at [phone] - From [employer], Go to Appointments - Request an Appt Carole Rollins MD 02/06/2025 12:25 PM Addendum [facility] POLYCYSTIC OVARIAN SYNDROME INITIAL CONSULT Consultation requested by Beth Alilson APRN.YARD ASSOCIATE HPI: Shaneka Nugent is a 24 year old female presenting as a new patient to me for evaluation of hyperandrogenism. Elevated Testosterone and DHEAS: - Last blood work was last year. - Elevated testosterone and DHEAS levels noted. - Denies significant hirsutism; minimal mustache and abdominal hair. - No significant acne. - Family history of thyroid cancer (maternal aunt) and ovarian cancer (maternal grandmother). PCOS: - Diagnosed with PCOS at age 15; diagnosis was later retracted and then confirmed again within the last 2 years. - Menarche at age 11; initially regular menses, became irregular around age 14-15. - Reports oligomenorrhea, with 9-10 periods per year during adolescence- - Experienced amenorrhea for up to 3 months at a time after age 20. - No ultrasounds performed for PCOS diagnosis as per patient - Reports alopecia with phases of thinning and thickening hair. - History of using oral contraceptive pills and Nexplanon for control; currently not using any contraception. - Denies current desire for another . Infertility: - Difficulty conceiving; took 2 years to conceive current child. - One miscarriage in May 2023. - Conceived naturally. Recent and : - Gave 5 weeks ago. - Initially had good milk production, now producing less than 1 oz every 2 hours. Weight Gain: - Significant weight gain over the past 4-5 years. - High school weight: 180-190 lbs; highest weight: 245 lbs. - Current weight: 221 lbs. - Lost 20 lbs between February and April of last year. - Weight fluctuated during ; lowest weight during was 210 lbs, highest was 230 lbs. - Reports weight gain after decreased milk production. - Tried various diets and increased physical activity with minimal success in weight loss. - Previously took Wellbutrin and naltrexone for weight loss with good results; stopped taking them after becoming . - Planning to join a gym and lose weight through lifestyle changes and medication if necessary. NIH Criteria oligo/arovulation: yes, no evidence of hyperandrogenism: hirsutism and established biochemical evidence of hyperandrogenism other causes excluded: yes ROS: Core Review of Systems (Submitted on 02/04/2025) Fever : No Night sweats: No Recent unintentional weight change: No Nasal Congestion: No Hearing Loss: No Vision Disturbance: No A cough: No Difficulty Breathing?: No Chest pain: No Irregular heartbeat: No Leg Swelling: No Nausea: No (more content not included)...NormalTrinity Health System East CampusRPR W/RFX TO QUANT & TP ABS ([facility])on 11-59-9219GFN INTERPRETATIONComment.NOMS HealthcareComment on above:Syphilis: RPR with Reflex to RPR Titer and Treponemal Antibodies, Traditional Screening and Diagnosis Algorithm Treponemal RPR RPR, Qn Ab Final Interpretation -------- --------- Non N/A N/A No laboratory evidence Reactive of syphilis. Retest in 2-4 weeks if recent exposure is suspected. -------- --------- Reactive >/=1:1 Non Nontreponemal antibodies Reactive detected. Syphilis unlikely; biological false positive possible. Retest in 2-4 weeks if recent exposure is suspected. -------- --------- Reactive >/=1:1 Reactive Treponemal and nontreponemal antibodies detected. Consistent with past or current (potential early) syphilis. Performed at: [facility] Lab[address] [id number] Psychiatric Social Worker Supervisor: Terrance Valdez PhD, Phone: [phone] RPR, RFX QUANT RPRNon-ReactiveNon ReactiveNOMS HealthcareNOMS Healthcare Basophils [#/volume] in Blood by Automated countOrdered By: BROCK TREJO on 39-34-8851Gnwbervhl (Bld) [#/Vol]0.0 10*3/uL0.0-0.2FBethesda North HospitalComment on above:Order Comment: Comment Draw at 630 amResult Comment: PERFORMED BY: [facility] [address] [place] [address] PATHOLOGIST CLOTH BALE HEADER MOLLY TAYLOR M.D.Performed By: #### AMOL BUTCHER #### [place] [address] USABasophils/100 leukocytes in Blood by Automated count Ordered By: BROCK TREJO on 00-70-7607Zmpmzvjvu/100 WBC (Bld)0.1 %.[facility]st HospitalComment on above:Order Comment: Comment Draw at 630 am Performed By: #### AMOL BUTCHER #### [facility] [address] [place] [id number] [facility] W Auto Differential panel (Bld)on 31-51-0382Uwnzcdsee (Bld) [#/Vol]0 10*3/uL0.0 - 0.2 10*3/uLNOMS HealthcareBasophils/100 WBC Manual cnt (Syn fld)0.1 %.[facility] HealthcareEosinophils (Bld) [#/Vol]0.1 10*3/uL0.0 - 0.45 10*3/uLNOMS HealthcareEosinophils/100 WBC Manual cnt (Syn fld)0.8 %.[facility] HealthcareErythrocyte distribution width (RBC) [Ratio]12.5 %11.9 - 15.3 %[facility] HealthcareHematocrit (Bld) [Volume fraction]30.6 %Low34.0 - 46.4 %[facility] HealthcareHemoglobin (Bld) [Mass/Vol]10.4 g/dLLow11.8 - 15.4 g/dLThree Rivers Healthcare Interpretation and review of laboratory resultsAbnormalThree Rivers Healthcare Lymphocytes (Bld) [#/Vol]1.7 10*3/uL1.00 - 4.8 10*3/uLNOMS Healthcare Lymphocytes/100 WBC Manual cnt (Syn fld)12.8 %.[facility] CenterH (RBC) [Entitic mass]30.2 pg24.7 - 34.3 pgSaint Francis Medical CenterHC (RBC) [Mass/Vol]33.9 g/dL32.0 - 35.0 g/dLSaint Francis Medical CenterV (RBC) [Entitic vol]88.9 fL80 - 100 fLCEDAR CITY HOSPITAL Healthcare Monocytes (Bld) [#/Vol]1 10*3/uLHigh0.0 - 0.8 10*3/uLNOMS Healthcare Monocytes+Macrophages/100 WBC Manual cnt (Syn fld)7.5 %.[facility] Neutrophils (Bld) [#/Vol]10.6 10*3/uLHigh1.8 - 7.7 10*3/uLNOMS Healthcare Neutrophils/100 WBC Manual cnt (Syn fld)78.8 %.NOMS HealthcareNRBC0 /100{WBC}0 - 0.5 /100{WBC}NOMS HealthcarePlatelet mean volume (Bld) [Entitic vol]8.4 fL6.3 - 10.7 fLNOMS HealthcarePlatelets (Bld) [#/Vol]188 10*3/uL150 - 450 10*3/uLNOMS HealthcareRBC LM.HPF (Urine sed) [#/Area]3.44 10*6/uLLow3.60 - 5.00 10*6/uLNOMS HealthcareWBC (Bld) [#/Vol]13.5 10*3/uLHigh3.8 - 11.6 10*3/uLNOMS HealthcareWBC LM.HPF (Urine sed) [#/Area]13.5 [CFU]/mLHigh3.8 - 11.6 [CFU]/mLNOMS Healthcare Comment Draw at 630 [facility] N[facility] ValleyComplete Blood Count Auto Diffon 24-11-3363Rfqk Corpuscular HGB Conc33.9 g/rEGmltwz91.0-35.0The [facility] Physician GroupComment on above:Order Comment: Comment Draw at 630 amPerformed By: #### HADLEY, CUU #### [facility] [address] [place] [address] USANRBC%0.0 /100{WBC}Normal0-0.5The [facility] Physician Group Comment on above:Order Comment: Comment Draw at 630 amPerformed By: #### HADLEY, CUU #### [facility] [address] [place] [id number] USAWhite Blood Count13.5 [CFU]/mLHigh3.8-11.6The [facility] Physician GroupComment on above:Order Comment: Comment Draw at 630 amPerformed By: #### ERISPLUS, CUU #### [facility] [address] [place] [address] USAEosinophils [#/volume] in Blood by Automated countOrdered By: BROCK TREJO on 12-67-8549Kxfugkcubzq (Bld) [#/Vol]0.1 10*3/uL0.0-0.45 [facility] HospitalComment on above:Order Comment: Comment Draw at 630 amPerformed By: #### ADDONUAPLUS, CUU #### [place] [id number] USAEosinophils/100 leukocytes in Blood by Automated count Ordered By: BROCK TREJO on 87-10-5052Odoeuexyyvu/100 WBC (Bld)0.8 %.[facility] HospitalComment on above:Order Comment: Comment Draw at 630 am Performed By: #### ADDONUAPLUS, CUU #### [place] [id number] USAErythrocyte distribution width [Ratio] by Automated count Ordered By: BROCK TREJO on 82-34-4300Aqtejsgakwd distribution width (RBC) [Ratio]12.5 %11.9-15.3FBethesda North HospitalComment on above:Order Comment: Comment Draw at 630 amPerformed By: #### ADDONUAPLUS, CUU #### [place] [id number] USAErythrocytes [#/volume] in Blood by Automated countOrdered By: BROCK TREJO on 65-57-8921UWZ (Bld) [#/Vol]3.44 10*6/uLLow3.60-5.00 [facility] HospitalComment on above:Order Comment: Comment Draw at 630 amPerformed By: #### ADDONUAPLUS, CUU #### [place] [id number] USAHematocrit [Volume Fraction] of Blood by Automated count Ordered By: BROCK TREJO on 51-14-0392Ssawrjfyid (Bld) [Volume fraction]30.6 % Low34.0-46.4FBethesda North HospitalComment on above:Order Comment: Comment Draw at 630 amPerformed By: #### ADDONUAPLUS, CUU #### [place] [id number] USAHemoglobin [Mass/volume] in BloodOrdered By: BROCK TREJO on 75-07-1882Emgbfwgbcr (Bld) [Mass/Vol]10.4 g/dLLow11.8-15.4FBethesda North HospitalComment on above:Order Comment: Comment Draw at 630 amPerformed By: #### AMOL BUTCHER #### [facility] [address] [place] [address] [facility] 01-01-2025 Specimen: [id number] Received: 01/02/25 Status: MICK Francisarabella Num: [id number] Spec Type: Surgical Subm Dr: BROCK TREJO MD Tissues: A Placenta - 3rd Trimester (Greater than 28 weeks) (PLACENTA) Procedures: Marjorie POSEY/Enedina Gunderson Age/ Patient Sex Location Account Attending Physician Shaneka Nugent 24/ [id number] BROCK TREJO MD SPEC NUM: [id number] RECD: 01/02/25 STATUS: MICK ARREOLA NUM: [id number] BEATRIZ: 01/01/25-[address] [facility] [address]: BROCK TREJO MD ENTERED: 01/02/25 [facility] DR: CATALINO TYPE: Surgical DEPT: S ENTERED BY: [id number] RECV BY: [id number] ORDERED: HE/3, Gross/Micro L5 ORDERED: HE/3, Gross/Micro L5 Pathological Diagnosis A. Placenta (vaginal delivery): Large for gestational age placenta (greater than 75th percentile by weight and dates) Term third trimester placenta and three-vessel umbilical cord Clinical Information 36w 5d vaginal delivery, poly Gross Description A. The specimen is received in a formalin filled container labeled with the patient's name, date of and designated as placenta . It consists of a hudson placenta with attached membranes and umbilical cord measuring 16.9 x 16.1 x 2.6 cm and weighing 576.6 g (formalin fixed). The marginally inserted damon-pink, glistening and opaque membranes are ruptured eccentrically. The 36.6 cm in length by 1.0 cm in diameter umbilical cord is eccentrically inserted, 6.8 cm from the nearest disc edge, displays a segmented pattern and 3 vessels upon sectioning. The surface is blue-montanez, smooth, glistening with a uniform and radial distribution of vessels. The maternal surface is comprised of complete and intact red-brown cotyledons. No areas of hemorrhage or calcification are identified. Sectioning demonstrates spongy red-brown cut surfaces with no nodules or areas of hemorrhage or abnormality identified. Breakfast Attendant sections are submitted in cassettes A1?A3 as follows: A1: Membrane roll, proximal and distal umbilical cord A2?A3: Random full-thickness placenta (3, representatively submitted, ) Specimen: [id number] Received: 01/02/25 Status: XIOMARAAdolfo Arreola Num: [id number] Spec Type: Surgical Subm Dr: BROCK TREJO MD Tissues: A Placenta - 3rd Trimester (Greater than 28 weeks) (PLACENTA) Procedures: GIGI/Shar, Gross/Micro L5 Patient: Shaneka Nugent [id number] (Continued) Specimen: Received: 01/02/25 (Continued) Signed (signature on file) Nelson Prajapati Jr., MD 01/05/25 1539 Specimen: [id number] Received: 01/02/25 Status: XIOMARAAdolfo Arreola Num: [id number] Spec Type: Surgical Subm Dr: BROCK TREJO MD Tissues: A Placenta - 3rd Trimester (Greater than 28 weeks) (PLACENTA) Procedures: HE/3, Gross/Micro L5 Patient: Shaneka Nugent Teressa [id number] (Continued) Specimen: [id number] Received: 01/02/25 (Continued) CPT Codes 34365 Specimen: [id number] Received: 01/02/25 Status: MICK Arreola Num: [id number] Spec Type: Surgical Subm Dr: BROCK TREJO MD Tissues: A Placenta - 3rd Trimester (Greater than 28 weeks) (PLACENTA) Procedures: Gross/Micro L5 Patient: Shaneka Nugent [id number] (Continued) Signed (signature on file) Nelson Prajapati Jr., MD 01/05/[address] [place] [address] Physician GroupLeukocytes [#/volume] corrected for nucleated erythrocytes in Blood by Automated counOrdered By: BROCK TREJO on 24-56-8695TGH corrected for nucl RBC Auto (Bld) [#/Vol]13.5 10*3/uLHigh3.8-11.6 [facility] HospitalLeukocytes [#/volume] in Blood by Automated countOrdered By: BROCK TREJO on 67-68-0503KGD (Bld) [#/Vol]13.5 10*3/uLHigh 3.8-11.6FBethesda North HospitalComment on above:Order Comment: Comment Draw at 630 amPerformed By: #### HADLEY, CUU #### [facility] [address] [place] [address] USALymphocytes [#/volume] in Blood by Automated countOrdered By: BROCK TREJO on 26-05-5633Hoipolysumj (Bld) [#/Vol]1.7 10*3/uL1.00-4.8 [facility] HospitalComment on above:Order Comment: Comment Draw at 630 amPerformed By: #### HADLEY, CUU #### [facility] [address] [place] [address] USALymphocytes/100 leukocytes in Blood by Automated count Ordered By: BROCK TREJO on 20-10-0626Kmqxlisxmdd/100 WBC (Bld)12.8 %.[facility] HospitalComment on above:Order Comment: Comment Draw at 630 am Performed By: #### HADLEY, CUU #### [facility] [address] [place] [id number] [facility] [Entitic mass] by Automated countOrdered By: BROCK TREJO on 71-85-7689CSE (RBC) [Entitic mass]30.2 pg24.7-34.3FBethesda North HospitalComment on above:Order Comment: Comment Draw at 630 amPerformed By: #### HADLEY, CUU #### [place] [id number] [facility] Auto (RBC) [Mass/Vol]Ordered By: BROCK TREJO on 33-05-0625RDEV (RBC) [Mass/Vol]33.9 g/dL32.0-35.0[facility] HospitalMCV [Entitic volume] by Automated countOrdered By: BROCK TREJO on 20-66-9318MPM (RBC) [Entitic vol]88.9 eC49-994FhinsuhlyCleveland Clinic Hillcrest Hospital Comment on above:Order Comment: Comment Draw at 630 amPerformed By: #### HADLEY CUU #### [facility] [address] [place] [id number] USAMonocytes [#/volume] in Blood by Automated countOrdered By: BROCK TREJO on 74-19-1792Jclpmbmtz (Bld) [#/Vol]1.0 10*3/uLHigh0.0-0.8 [facility] HospitalComment on above:Order Comment: Comment Draw at 630 amPerformed By: #### HADLEY, CUU #### [address] [address] USAMonocytes/100 leukocytes in Blood by Automated count Ordered By: BROCK TREJO on 92-85-0808Lpzsahqxq/100 WBC (Bld)7.5 %.[facility] HospitalComment on above:Order Comment: Comment Draw at 630 am Performed By: #### HADLEY, CUU #### [facility] [address] [place] [address] USANeutrophils [#/volume] in Blood by Automated countOrdered By: BROCK TREJO on 49-48-6481Dpvpvgzwdjn (Bld) [#/Vol]10.6 10*3/uLHigh1.8-7.7 [facility] HospitalComcorewell health gerber hospital on above:Order Comment: Comment Draw at 630 amPerformed By: #### HADLEY, CUU #### [facility] [address] [place] [id number] USANeutrophils/100 leukocytes in Blood by Automated count Ordered By: BROCK TREJO on 32-01-3498Lepnvllvfms/100 WBC (Bld)78.8 %.[facility] HospitalComment on above:Order Comment: Comment Draw at 630 am Performed By: #### HADLEY, CUU #### [facility] [address] [place], [place] [address] USANucleated erythrocytes [Presence] in Blood by Automated countOrdered By: BROCK TREJO on 69-66-5985Ouhrbnuuf RBC Auto Ql (Bld)0.0 /100{WBC}0-0.5FBethesda North HospitalPlatelet mean volume [Entitic volume] in Blood by Automated countOrdered By: BROCK TREJO on 01-01-2025 Platelet mean volume (Bld) [Entitic vol]8.4 fL6.3-10.7FBethesda North HospitalComment on above:Order Comment: Comment Draw at 630 amPerformed By: #### LACIONUAPLUS, CUU #### [facility] [address] [place] [id number] USAPlatelets [#/volume] in Blood by Automated countOrdered By: BROCK TREJO on 14-20-2095Lldfbwaxm (Bld) [#/Vol]188 10*3/eW484-431IeocbnbnnCleveland Clinic Hillcrest HospitalComment on above:Order Comment: Comment Draw at 630 am Performed By: #### LACIONUAPLUS, CUU #### [facility] [address] [place] [address] USAABO/Rh Retypeon 03-39-2989LLU/RH Recheck ResultPositive NormalThe [facility] Physician GroupComment on above:Result Comment: PERFORMED BY: [address] [address] PATHOLOGIST CLOTH BALE HEADER MOLLY TYALOR M.D.AMNISURE(PAMG-1)on 21-57-5038IRFRMUWPVtbsugzjZmujsplmATVU HealthcareComment For suspected repture of membranesFIRELANDSNOAL Healthcare Amnisure(Pamg-1)on 49-70-2169UzvigrtnNrpbziopGgqhiaDpjddizvWut [facility] Physician GroupComment on above:Order Comment: Comment For suspected repture of membranesResult Comment: PERFORMED BY: [address] [address] PATHOLOGIST CLOTH BALE HEADER MOLLY TAYLOR M.D.Performed By: #### HADLEY, CUU #### [facility] [address] [place] [address] USAAmphetamine Screen Ql (U)Ordered By: BROCK TREJO on 05-87-8778Wxcaxvdmvilt Ql (U)[facility] Appearance of UrineOrdered By: BROCK TREJO on 77-18-2184Mxywrmnmtc (U)Cloudy AbnormalCleSouthwest General Health CenterComment on above:Order Comment: Comment c/o urinary symptoms or increased blood pressure Name Collection Type:: Clean-Voided MidstreamPerformed By: #### CUU, ADDONUAPLUS, AMNISURE- #### [facility] [address] [place] [address] USABacteria [Presence] in Urine by AutomatedOrdered By: BROCK TREJO on 25-84-3752Vkkhdzmo Auto Ql (U)Rare [HPF]None SeenCleveland Clinic Hillcrest HospitalBarbiturates [Presence] in Urine by Screen methodOrdered By: BROCK TREJO on 54-41-3064Wkkbpsjxkipn Screen Ql (U)NegativeNegKindred Hospital LimaBenzodiazepines Screen Ql (U)Ordered By: BROCK TREJO on 51-30-7713Qtruxpltimxdpbd Ql (U)NegativeNegKindred Hospital LimaBenzoylecgonine [Presence] in Urine by Screen methodOrdered By: BROCK TREJO on 34-28-8889Uyvajrylkktvdzs Screen Ql (U)NegativeNegKindred Hospital LimaBilirubin Test strip Ql (U)Ordered By: BROCK TREJO on 80-62-0970Gngmfwbwk Ql (U)NegativeNegKindred Hospital LimaCBC W Auto Differential panel (Bld)on 48-92-7133Kbepfpjqu (Bld) [#/Vol]0 10*3/uL0.0 - 0.2 10*3/uLNOMS HealthcareBasophils/100 WBC Manual cnt (Syn fld)0.3 %.NOMS HealthcareEosinophils (Bld) [#/Vol]0.1 10*3/uL0.0 - 0.45 10*3/uLNOMS Healthcare Eosinophils/100 WBC Manual cnt (Syn fld)1 %.NOMS HealthcareErythrocyte distribution width (RBC) [Ratio]12.4 %11.9 - 15.3 %NOMS HealthcareHematocrit (Bld) [Volume fraction]33.6 %Low34.0 - 46.4 %NOMS HealthcareHemoglobin (Bld) [Mass/Vol]11.5 g/dLLow11.8 - 15.4 g/dLNOMS HealthcareInterpretation and review of laboratory resultsAbnormalNOAL HealthcareLymphocytes (Bld) [#/Vol]1.7 10*3/uL 1.00 - 4.8 10*3/uLNOMS HealthcareLymphocytes/100 WBC Manual cnt (Syn fld)17.8 %. NOMS HealthcareMCH (RBC) [Entitic mass]30.2 pg24.7 - 34.3 pgNOMS HealthcareMCHC (RBC) [Mass/Vol]34.2 g/dL32.0 - 35.0 g/dLNOBarnes-Jewish Saint Peters HospitalMCV (RBC) [Entitic vol] 88.3 fL80 - 100 fLNOAL HealthcareMonocytes (Bld) [#/Vol]0.6 10*3/uL0.0 - 0.8 10*3/uLNOMS HealthcareMonocytes+Macrophages/100 WBC Manual cnt (Syn fld)6.4 %. NOMS HealthcareNeutrophils (Bld) [#/Vol]7 10*3/uL1.8 - 7.7 10*3/uLNOMS HealthcareNeutrophils/100 WBC Manual cnt (Syn fld)74.5 %.NOMS HealthcareNRBC0.1 /100{WBC}0 - 0.5 /100{WBC}NOMS HealthcarePlatelet mean volume (Bld) [Entitic vol]8.4 fL6.3 - 10.7 fLNOMS HealthcarePlatelets (Bld) [#/Vol]205 10*3/uL150 - 450 10*3/uLNOMS HealthcareRBC LM.HPF (Urine sed) [#/Area]3.81 10*6/uL3.60 - 5.00 10*6/uLNOMS HealthcareWBC (Bld) [#/Vol]9.4 10*3/uL3.8 - 11.6 10*3/uLNOMS HealthcareWBC LM.HPF (Urine sed) [#/Area]9.4 [CFU]/mL3.8 - 11.6 [CFU]/mLNOMS HealthcareNOMS HealthcareColor of Urine by AutoOrdered By: BROCK TREJO on 98-83-0012Fqmvu (U)Light-yellowMcCullough-Hyde Memorial HospitalComment on above:Order Comment: Comment c/o urinary symptoms or increased blood pressure Name Collection Type:: Clean-Voided MidstreamPerformed By: #### CUU, ADDONUAPLUS, AMNISURE- #### [place] [address] USAComplete Blood Count Auto Diffon 46-07-6418Rntpqexid (Bld) [#/Vol]0.0 10*3/uLNormal0.0-0.2The [facility] Physician GroupComment on above: Result Comment: PERFORMED BY: [place] [address] PATHOLOGIST CLOTH BALE HEADER MOLLY TAYLOR M.D.Performed By: #### ADDONUAPLUS, CUU #### [place] [address] USABasophils/100 WBC (Bld)0.3 %Normal.The [facility] Physician GroupComment on above:Performed By: #### ADDONUAPLUS, CUU #### [place] [address] USAEosinophils (Bld) [#/Vol]0.1 10*3/uLNormal0.0-0.45The [facility] Physician GroupComment on above:Performed By: #### ADDONUAPLUS, CUU #### [place] [address] USAEosinophils/100 WBC (Bld)1.0 %Normal.The [facility] Physician GroupComment on above:Performed By: #### ADDONUAPLUS, CUU #### [place] [address] USAErythrocyte distribution width (RBC) [Ratio]12.4 %Normal 11.9-15.3The [facility] Physician GroupComment on above:Performed By: #### ADDONUAPLUS, CUU #### [place] [address] USAHematocrit (Bld) [Volume fraction]33.6 %Low34.0-46.4The [facility] Physician GroupComment on above:Performed By: #### ADDONUAPLUS, CUU #### [place] [address] USAHemoglobin (Bld) [Mass/Vol]11.5 g/dLLow11.8-15.4The [facility] Physician GroupComment on above:Performed By: #### ADDONUAPLUS, CUU #### [place] [address] USALymphocytes (Bld) [#/Vol]1.7 10*3/uLNormal1.00-4.8The [facility] Physician GroupComment on above:Performed By: #### ADDONUAPLUS, CUU #### [place] [id number] USALymphocytes/100 WBC (Bld)17.8 %Normal.The [facility] Physician GroupComment on above:Performed By: #### HADLEY, CUU #### [place] [address] USAH (RBC) [Entitic mass]30.2 ibEbozqh95.7-34.3The [facility] Physician GroupComment on above:Performed By: #### ERISPLUS, CUU #### [place] [address] USAV (RBC) [Entitic vol]88.3 wNDiydba59-122Mak [facility] Physician GroupComment on above:Performed By: #### HADLEY, CUU #### [place] [address] USAMean Corpuscular HGB Conc34.2 g/jSSjnmjx73.0-35.0The [facility] Physician GroupComment on above:Performed By: #### ADDONUAPLUS, CUU #### [facility] [address] [place] [address] USAMonocytes (Bld) [#/Vol]0.6 10*3/uLNormal0.0-0.8The [facility] Physician GroupComment on above:Performed By: #### ADDONUAPLUS, CUU #### [place] [address] USAMonocytes/100 WBC (Bld)6.4 %Normal.The [facility] Physician GroupComment on above:Performed By: #### ADDONUAPLUS, CUU #### [place] [address] USANeutrophils (Bld) [#/Vol]7.0 10*3/uLNormal1.8-7.7The [facility] Physician GroupComment on above:Performed By: #### ADDONUAPLUS, CUU #### [place] [address] USANeutrophils/100 WBC (Bld)74.5 %Normal.The [facility] Physician GroupComment on above:Performed By: #### HADLEY CUU #### [facility] [address] [place] [address] USANRBC%0.1 /100{WBC}Normal0-0.5The [facility] Comment on above:Performed By: #### HADLEY CUU #### [place] [address] USAPlatelet mean volume (Bld) [Entitic vol]8.4 fLNormal 6.3-10.7The [facility] Physician GroupComment on above:Performed By: #### HADLEY CUU #### [place] [address] USAPlatelets (Bld) [#/Vol]205 10*3/rNCabjvr979-910Vqo [facility] GroupComment on above:Performed By: #### HADLEY CUU #### [place] [address] USARBC (Bld) [#/Vol]3.81 10*6/uLNormal3.60-5.00The [facility]ician GroupComment on above:Performed By: #### HADLEY CUU #### [place] [address] USAWBC (Bld) [#/Vol]9.4 10*3/uLNormal3.8-11.6The [facility] GroupComment on above:Performed By: #### HADLEY CUU #### [place] [address] USAWhite Blood Count9.4 [CFU]/mLNormal3.8-11.6The [facility] Physician GroupComment on above:Performed By: #### HADLEY, CUU #### [place] [address] USACrystals.amorphous [Presence] in Urine by Computer assisted methodOrdered By: BROCK TREJO on 80-17-5896Rgspocfp.amorphous Computer assisted Ql (U)1+ [HPF][facility]st HospitalDipstick and Microscopicon 16-46-1614Mgcpmkexj Crystal,Urine1+ [HPF]NormalBroward Health Medical Center Physician GroupComment on above:Order Comment: Comment c/o urinary symptoms or increased blood pressure Name Collection Type:: Clean-Voided MidstreamPerformed By: #### CUU, ADDONUAPLUS, AMNISURE- #### [place] [address] USABacteria,UrineRareNormalNone SeenThe [facility] Physician GroupComment on above:Order Comment: Comment c/o urinary symptoms or increased blood pressure Name Collection Type:: Clean-Voided MidstreamPerformed By: #### CUU, ADDONUAPLUS, AMNISURE- #### [place] [address] USABilirubin,UrineNegativeNormalNegativeBroward Health Medical Center Physician GroupComment on above:Order Comment: Comment c/o urinary symptoms or increased blood pressure Name Collection Type:: Clean-Voided MidstreamPerformed By: #### CUU, ADDONUAPLUS, AMNISURE- #### [place] [address] USAGlucose Ql (U)NormalNormalNormalThe [facility]ician GroupComment on above:Order Comment: Comment c/o urinary symptoms or increased blood pressure Name Collection Type:: Clean-Voided MidstreamPerformed By: #### CUU, ADDONUAPLUS, AMNISURE- #### [place] [address] USAHyaline Casts,UrineNoneNormal0-8The [facility]ician GroupComment on above:Order Comment: Comment c/o urinary symptoms or increased blood pressure Name Collection Type:: Clean-Voided MidstreamResult Comment: PERFORMED BY: [place] [address] PATHOLOGIST CLOTH BALE HEADER MOLLY TAYLOR M.D.Performed By: #### CUU, ADDONUAPLUS, AMNISURE- #### [place] [address] USANitrite,UrineNegativeNormalNegativeThe [facility]ician GroupComment on above:Order Comment: Comment c/o urinary symptoms or increased blood pressure Name Collection Type:: Clean-Voided MidstreamPerformed By: #### CUU, ADDONUAPLUS, AMNISURE- #### [place] [address] USAOccult Blood,Urine1+NormalNegativeThe [facility] GroupComment on above:Order Comment: Comment c/o urinary symptoms or increased blood pressure Name Collection Type:: Clean-Voided MidstreamResult Comment: PERFORMED BY: [place] [address] PATHOLOGIST CLOTH BALE HEADER MOLLY TAYLOR M.D.Performed By: #### CUU, ADDONUAPLUS, AMNISURE- #### [place] [address] USARBC,Xuppn79-44Uokktm8-7Kaj [facility] Comment on above:Order Comment: Comment c/o urinary symptoms or increased blood pressure Name Collection Type:: Clean-Voided MidstreamPerformed By: #### CUU, ADDONUAPLUS, AMNISURE- #### [place] [address] USASpecificy [place],Urine1.768Pysyhd5.001-1.030The [facility]ician GroupComment on above:Order Comment: Comment c/o urinary symptoms or increased blood pressure Name Collection Type:: Clean-Voided MidstreamPerformed By: #### CUU, ADDONUAPLUS, AMNISURE- #### [place] [address] USASquamous Epithelial Cell,Qijgz32-02Gonnbw5-0Ayt [facility] GroupComment on above:Order Comment: Comment c/o urinary symptoms or increased blood pressure Name Collection Type:: Clean-Voided MidstreamPerformed By: #### CUU, ADDONUAPLUS, AMNISURE- #### [place] [address] USAUrobilinogen,UrineNormalNormalNormalThe [facility] GroupComment on above:Order Comment: Comment c/o urinary symptoms or increased blood pressure Name Collection Type:: Clean-Voided MidstreamPerformed By: #### CUU, ADDONUAPLUS, AMNISURE- #### [facility] [address] [place] [address] USAWBC,Zlvoj75-80Pdjdrn9-2Rlr [facility] Comment on above:Order Comment: Comment c/o urinary symptoms or increased blood pressure Name Collection Type:: Clean-Voided MidstreamPerformed By: #### CUU, ADDONUAPLUS, AMNISURE- #### [facility] [address] [place] [address] USAEpithelial cells.squamous [#/area] in Urine sediment by Automated countOrdered By: BROCK TREJO on 18-90-9672Gizxelohbp cells.squamous Auto (Urine sed) [#/Area]20-49 [HPF]High0-2FBethesda North Hospital Erythrocytes [#/area] in Urine sediment by Automated countOrdered By: BROCK TREJO on 35-32-5264GOR Auto (Urine sed) [#/Area]20-49 [HPF]High0-4FBethesda North HospitalGlucose [Mass/volume] in Urine by Test stripOrdered By: BROCK TREJO on 99-00-3075Swadzjm Test strip (U) [Mass/Vol]Normal mg/dLNormal [facility] HospitalHemoglobin Test strip Ql (U)Ordered By: BROCK TREJO on 66-09-9177Fmdskzgsdf Ql (U)1+HighNegKindred Hospital LimaHyaline casts [#/area] in Urine sediment by Automated countOrdered By: BROCK TREJO on 08-66-3116Ykxeakc casts Auto (Urine sed) [#/Area]None [LPF]0-8 [facility] HospitalKetones [Presence] in Urine by Test strip Ordered By: BROCK TREJO on 39-41-3626Vsoakpw Ql (U)NegativeNegKindred Hospital LimaComment on above:Order Comment: Comment c/o urinary symptoms or increased blood pressure Name Collection Type:: Clean-Voided MidstreamPerformed By: #### CUU, ADDONUAPLUS, AMNISURE- #### [facility] [address] [place] [address] USALeukoReduced RBCon 37-58-6470LlgpxChdeljs RBCREADYNormal The [facility]ician GroupLeukocyte esterase [Presence] in Urine by Test stripOrdered By: BROCK TREJO on 85-74-6030Faiacuagm esterase Test strip Ql (U) NegativeNegKindred Hospital LimaComment on above:Order Comment: Comment c/o urinary symptoms or increased blood pressure Name Collection Type:: Clean-Voided MidstreamPerformed By: #### CUU, ADDONUAPLUS, AMNISURE- #### [facility] [address] [place] [address] USALeukocytes [#/area] in Urine sediment by Automated count Ordered By: BROCK TREJO on 69-21-9230TUL Auto (Urine sed) [#/Area]10-19 [HPF] High0-4FBethesda North HospitalNitrite Test strip Ql (U)Ordered By: BROCK TREJO on 16-32-8769Sycppsa Ql (U)NegativeNegKindred Hospital LimaNo Panel InformationOrdered By: BROCK TREJO on 51-73-2360Jnmqhdua InterpretationComment.[facility] HospitalComment on above: Syphilis: RPR with Reflex to RPR Titer and Treponemal Antibodies, Traditional Screening and Diagnosis Algorithm TreponemalRPR RPR, Qn Ab Final Interpretation-------- --------- Non N/A N/A No laboratory evidenceReactive of syphilis. Retest in 2-4 weeks if recent exposure is suspected.-------- --------- -- -------- Reactive >/=1:1 Non Nontreponemal antibodies Reactive detected.Syphilis unlikely; biological false positive possible. Retest in 2-4 weeks if recent exposure is suspected.-------- --------- Reactive >/=1:1 Reactive Treponemaland nontreponemal antibodies detected. Consistent with past or current (potential early) syphilis.Performed at: - [facility] [id number] Director: Terrance Valdez PhD, Phone: [phone] Membranes Rupture (PAMG-1)PositiveHighNegativeCleveland Clinic Hillcrest HospitalOB URINE DRUG SCREEN (NO THC)on 64-90-3781GDBSEXAOYXI SCREEN,URINENegativeNegativeNOMS HealthcareBARBITURATE SCREEN,URINENegativeNegativeNOMS HealthcareBENZODIAZEPINES SCREEN,URINENegativeNegativeNOMS HealthcareCOCAINE SCREEN,URINENegativeNegative NOMS HealthcareOPIATE SCREEN,URINENegativeNegativeNOMS HealthcarePHENCYCLIDINE SCREEN, URINENegativeNegativeNOMS HealthcareComment on above:These are unconfirmed results and should not be used for legal purposes. Drug Cut-Off Concentration: AMPH 1000 ng/mL VERO 200 ng/mL KALE 200 ng/mL COCM 300 ng/mL OP 300 ng/mL PCP 25 ng/mL NOMS HealthcareOB Urine Drug Screen (NO THC)on 56-81-9637Nmoevwlxbrs Screen,UrineNegativeNormalNegativeBroward Health Medical Center Physician GroupComment on above: Performed By: #### ADDONUAPLUS, CUU #### [facility] [address] [place] [address] USABarbiturate Screen,UrineNegativeNormalNegativeBroward Health Medical Center Physician GroupComment on above:Performed By: #### ADDONUAPLUS, CUU #### [facility] [address] [place] [address] USABenzodiazepines Screen,UrineNegativeNormalNegativeBroward Health Medical Center Physician GroupComment on above:Performed By: #### ADDONUAPLUS, CUU #### [facility] [address] [place] [address] USACocaine Screen,UrineNegativeNormalNegativeThe [facility]ician GroupComment on above:Performed By: #### BRENTUAPLUS, CUU #### [facility] [address] [place] [address] USAOpiate Screen,UrineNegativeNormalNegativeThe [facility]ician GroupComment on above:Performed By: #### LACIONUAPLUS, CUU #### [place] [address] USAPhencyclidine Screen, UrineNegativeNormalNegativeBroward Health Medical Center Physician GroupComment on above:Result Comment: These are unconfirmed results and should not be used for legal purposes. Drug Cut-Off Concentration: AMPH 1000 ng/mL VERO 200 ng/mL KALE 200 ng/mL COCM 300 ng/mL OP 300 ng/mL PCP 25 ng/mL PERFORMED BY: [place] [address] PATHOLOGIST CLOTH BALE HEADER OMLLY TAYLOR M.D.Performed By: #### HADLEY, CUU #### [place] [address] USAOpiates [Presence] in Urine by Screen methodOrdered By: BROCK TREJO on 83-05-1081Rqjubqr Screen Ql (U)NegativeNegKindred Hospital LimaPhencyclidine Screen Ql (U)Ordered By: BROCK TREJO on 39-67-2017Wmkdvpquyppiq Ql (U)NegativeNegKindred Hospital Lima Comment on above:These are unconfirmed results and should not be used for legal purposes. Drug Cut-Off Concentration: AMPH 1000 ng/mL VERO 200 ng/mL KALE 200 ng/mL COCM 300 ng/mL OP 300 ng/mL PCP 25 ng/mLProtein [Mass/volume] in Urine by Test stripOrdered By: BROCK TREJO on 57-79-7472Pztotxa (U) [Mass/Vol]100 mg/dL HighBucyrus Community HospitalComment on above:Order Comment: Comment c/o urinary symptoms or increased blood pressure Name Collection Type:: Clean-Voided MidstreamPerformed By: #### CUU, ADDONUAPLUS, AMNISURE- #### [facility] [address] [place] [address] USARPR w/rfx to Quant TP Abson 01-88-0092EJK Interpretation CommentNormal.The [facility] GroupComment on above:Result Comment: Syphilis: RPR with Reflex to RPR Titer and Treponemal Antibodies, Traditional Screening and Diagnosis Algorithm Treponemal RPR RPR, Qn Ab Final Interpretation -------- --------- Non N/A N/A No laboratory evidence Reactive of syphilis. Retest in 2-4 weeks if recent exposure is suspected. -------- --------- Reactive >/=1:1 Non Nontreponemal antibodies Reactive detected. Syphilis unlikely; biological false positive possible. Retest in 2-4 weeks if recent exposure is suspected. -------- --------- Reactive >/=1:1 Reactive Treponemal and nontreponemal antibodies detected. Consistent with past or current (potential early) syphilis. Performed at: [facility] [address] [id number] Psychiatric Social Worker Supervisor: Terrance Valdez PhD, Phone: [phone] PERFORMED BY: [facility] [address] [place] [address] PATHOLOGIST CLOTH BALE HEADER MOLLY TAYLOR M.D.Performed By: #### HADLEY, CUU #### [facility] [address] [place] [id number] USARPR, Rfx Quant RPRNon-ReactiveNormalNon ReactiveThe [facility] HospitalComment on above:Performed By: #### HADLEY, CUU #### [facility] [address] [place] [id number] USASerum RPR testOrdered By: BROCK TREJO on 56-07-3710Sozzkj Ab RPR Ql (S)Non-ReactiveNon ReactiveDayton Children's Hospitalpecific gravity Test strip (U) [Rel density]Ordered By: BROCK TREJO on 12-31-2024 Specific gravity (U) [Rel density]1.0071.001-1.030[facility] HospitalType and Screenon 80-87-2441VFV and Rh group Nom (Bld)Blood group A Rh(D) positiveNoParkview Healthe [facility] Physician GroupComment on above:Result Comment: PERFORMED BY: [place] [address] PATHOLOGIST CLOTH BALE HEADER MOLLY TAYLOR M.D.Urinalysis complete panel (U)on 55-28-9000Mkvgataycj (U) CloudyCritically abnormalClearNOMS HealthcareBILIRUBIN,URINENegativeNegativeNOMS HealthcareColor (U)Light-YellowYellowNOMS HealthcareGlucose Ql (U)NormalNormal mg/dLNOAL HealthcareInterpretation and review of laboratory resultsAbnormalNOMS HealthcareKetones Ql (U)NegativeNegativeNOMS HealthcareLeukocyte esterase Test strip Ql (U)NegativeNegativeNOMS HealthcareNITRITE,URINENegativeNegativeNOMS HealthcareOCCULT BLOOD,URINE1+NegativeNOMS HealthcarepH (U)7.5 [pH]5.0 - 9.0NOMS HealthcareProtein (U) [Mass/Vol]100 mg/dLNegativeNOMS HealthcareSPECIFICY GRAVITY,URINE1.0071.001 - 1.030NOMS HealthcareUROBILINOGEN,URINENormalNormal mg/dLNOMS HealthcareComment c/o urinary symptoms or increased blood pressure Name Collection Type:: Clean-Voided MidstreamMercy Health Perrysburg Hospital Urobilinogen Test strip (U) [Mass/Vol]Ordered By: BROCK TREJO on 12-31-2024 Urobilinogen (U) [Mass/Vol]Normal mg/dLNormSt. John of God HospitalpH of Urine by Test stripOrdered By: BROCK TREJO on 16-94-6933bM (U)7.5 [pH] 5.0-9.0[facility] HospitalComment on above:Order Comment: Comment c/o urinary symptoms or increased blood pressure Name Collection Type:: Clean-Voided MidstreamPerformed By: #### CUU, ADDONUAPLUS, AMNISURE- #### [place] [address] USAUS OB biophysical profileon 09-75-5403AT OB biophysical profileADENA PIKE [facility] [address] [place] [address] Ultrasound Report Signed Patient: Shaneka Nugent MR#: [id number] : 2000 Acct:[id number] Age/Sex: 24 / F ADM Date: 12/27/24 Loc: E3 Room: Type: [facility] Attending Dr: Megan Walker MD Ordering Provider: GAYATRI Leger Date of Service: 12/27/24 US/US OB biophysical profile: non-reactive NST at officec Copies to: GAYATRI Leger US OB biophysical profile 12/27/2024 1:01 PM SIGNS AND SYMPTOMS: S.br non-reactive NST at officec COMPARISON: None. TECHNIQUE: Limited pelvic ultrasound using transvesical sonography. FINDINGS: An intrauterine is identified. The visualized pole has an estimated gestational age of 36 weeks and 2 days. A heart rate is identified at 156 bpm. A normal amount of amniotic fluid is present. There is no evidence for placenta previa or subchorionic hemorrhage. Estimated weight is 6 lbs. 5 oz. Biophysical profile: tone: 2/2 Gross body movements: 2/2 breathing movements: 2/2 Amniotic fluid volume: 2/2 Pelvic survey reveals no gross abnormalities. US/ OB biophysical profile IMPRESSION: Single live IUP with an estimated gestational age of 36w2d weeks/days with an estimated date of delivery of 01/22/2025 and normal heart rate. Biophysical profile score: 8/8 Impression dictated by: Walker Lieberman M.D. 12/27/2024 1:21 PM Dictation Location: [place] [address] Tech: Meghna Amy Transcribed By: ARIA 12/27/24 1321 Dictated By: Walker Lieberman II, MD 12/27/24 1319 Signed By: 12/27/24 1321[facility] Physician GroupUrinalysis macro (dipstick) panel (U)Ordered By: Rosangela Keys on 18-31-5956Qdwogwjky, UANegativeNegative - 4(70) +++ mg/dLNOMS HealthcareBlood, UANegativeNegative - 50 Reji/mcLNOMS HealthcareClarity, UAClearNOMS HealthcareColor, UAYellowNOMS HealthcareGlucose, UANegativeNegative - 2000(110) ++++ mg/dLNOMS HealthcareInterpretation and review of laboratory resultsNormalNOMS HealthcareKetones, UANegativeNegative - 160(16) ++++ mg/dLNOMS HealthcareLeukocytes, UANegativeNegative - 500+++ Sal/mcL NOMS HealthcareNitrite, UANegativeNegative - PositiveNOMS HealthcarepH, UA55 - 9 NOMS HealthcareProtein, UANegativeNegative - 2000(20) ++++ mg/dLNOMS Healthcare Spec Grav, UA11 - 1.03NOMS HealthcareUrobilinogen, UA0.20.2 - 12 mg/dLNOMS HealthcareNOMS HealthcareAmphetamine Screen Ql (U)Ordered By: Shayy Juan on 93-64-6249Gfmrnohbzamo Ql (U)NegativeNegativeCleveland Clinic Hillcrest Hospital Appearance of Urineon 66-68-9284Dlfkptluvh (U)CloudyAbnormalClearNOAL Healthcare Comment on above:Order Comment: Comment c/o urinary symptoms or increased blood pressure Name Collection Type:: Clean-Voided MidstreamPerformed By: #### CUU, ADDONUAPLUS, AMNISURE- #### [facility] [address] [place] [address] USABacteria [Presence] in Urine by AutomatedOrdered By: Shayypooja uJan on 15-18-3392Dlsekuiu Auto Ql (U)2+ [HPF]HighNone SeenCleveland Clinic Hillcrest HospitalBarbiturates [Presence] in Urine by Screen methodOrdered By: Shayy Yessica on 00-90-3271Vswzxtncnobw Screen Ql (U)NegativeNegative [facility] HospitalBenzodiazepines Screen Ql (U)Ordered By: Shayy Juan on 60-74-2547Qhltmwykmnjmjvr Ql (U)NegativeNegKindred Hospital LimaBenzoylecgonine [Presence] in Urine by Screen method Ordered By: Shayy Yessica on 38-96-8879Tgnkjytllbtjovj Screen Ql (U)Negative NegativeCleveland Clinic Hillcrest HospitalBilirubin Test strip Ql (U)Ordered By: Shayypooja Juan on 67-15-0644Oaazvrzmh Ql (U)NegativeNegKindred Hospital LimaColor of Urine by Autoon 97-49-0139Dhslq (U)YellowYellowNOMS HealthcareComment on above:Order Comment: Comment c/o urinary symptoms or increased blood pressure Name Collection Type:: Clean-Voided MidstreamPerformed By: #### CUU, ADDONUAPLUS, AMNISURE- #### [place] [address] USADipstick and Microscopicon 08-47-3352UXUYEFAVG,URINE NegativeNormalNegativeNOMS HealthcareComment on above:Order Comment: Comment c/o urinary symptoms or increased blood pressure Name Collection Type:: Clean-Voided MidstreamPerformed By: #### CUU, ADDONUAPLUS, AMNISURE- #### [place] [address] USAGlucose Ql (U)NormalNormalNormalNOMS HealthcareComment on above:Order Comment: Comment c/o urinary symptoms or increased blood pressure Name Collection Type:: Clean-Voided MidstreamPerformed By: #### CUU, ADDONUAPLUS, AMNISURE- #### [place] [address] USANITRITE,URINENegativeNormalNegativeNOMS HealthcareComment on above:Order Comment: Comment c/o urinary symptoms or increased blood pressure Name Collection Type:: Clean-Voided MidstreamPerformed By: #### CUU, ADDONUAPLUS, AMNISURE- #### [place] [address] USAOCCULT BLOOD,URINETraceNormalNegativeNOMS Healthcare Comment on above:Order Comment: Comment c/o urinary symptoms or increased blood pressure Name Collection Type:: Clean-Voided MidstreamResult Comment: PERFORMED BY: [place] [address] PATHOLOGIST CLOTH BALE HEADER MOLLY TAYLOR M.D.Performed By: #### CUU, ADDONUAPLUS, AMNISURE- #### [place] [address] USASPECIFICY GRAVITY,URINE1.013Qlgctk6.001-1.030NOMS HealthcareComment on above:Order Comment: Comment c/o urinary symptoms or increased blood pressure Name Collection Type:: Clean-Voided MidstreamPerformed By: #### CUU, ADDONUAPLUS, AMNISURE- #### [place] [address] USAUROBILINOGEN,URINE2 mg/dLNormalNormalNOMS Healthcare Comment on above:Order Comment: Comment c/o urinary symptoms or increased blood pressure Name Collection Type:: Clean-Voided MidstreamPerformed By: #### CUU, ADDONUAPLUS, AMNISURE- #### [place] [address] USABacteria,Urine2+ [HPF]NormalNone SeenThe [facility] Physician GroupComment on above:Order Comment: Comment c/o urinary symptoms or increased blood pressure Name Collection Type:: Clean-Voided MidstreamPerformed By: #### CUU, ADDONUAPLUS, AMNISURE- #### [place] [address] USAHyaline Casts,Hearv9-9Llzsmp3-2Kpi [facility] Physician GroupComment on above:Order Comment: Comment c/o urinary symptoms or increased blood pressure Name Collection Type:: Clean-Voided MidstreamPerformed By: #### CUU, ADDONUAPLUS, AMNISURE- #### [address] [address] USAMucus,Urine3+ [LPF]Critically abnormalThe [facility] Physician GroupComment on above:Order Comment: Comment c/o urinary symptoms or increased blood pressure Name Collection Type:: Clean-Voided MidstreamResult Comment: PERFORMED BY: [place] [address] PATHOLOGIST CLOTH BALE HEADER MOLLY TAYLOR M.D.Performed By: #### CUU, ADDONUAPLUS, AMNISURE- #### [place] [address] USARBC,Ruvfw23-68Afjmvw5-4Zoq [facility] Comment on above:Order Comment: Comment c/o urinary symptoms or increased blood pressure Name Collection Type:: Clean-Voided MidstreamPerformed By: #### CUU, ADDONUAPLUS, AMNISURE- #### [place] [id number] USASquamous Epithelial Cell,Pzecy2-9Teizab9-9Vak [facility] Physician GroupComment on above:Order Comment: Comment c/o urinary symptoms or increased blood pressure Name Collection Type:: Clean-Voided MidstreamPerformed By: #### CUU, ADDONUAPLUS, AMNISURE- #### [address] [address] USAWBC,Dhbot40-89Ffahjn5-5Gfr [facility] Comment on above:Order Comment: Comment c/o urinary symptoms or increased blood pressure Name Collection Type:: Clean-Voided MidstreamPerformed By: #### CUU, ADDONUAPLUS, AMNISURE- #### [address] [address] USAEpithelial cells.squamous [#/area] in Urine sediment by Automated countOrdered By: Shayy Juan on 57-17-1846Yxfwlfckxw cells.squamous Auto (Urine sed) [#/Area]5-9 [HPF]High0-2FBethesda North HospitalErythrocytes [#/area] in Urine sediment by Automated countOrdered By: Shayypooja Juan on 66-09-4703AAV Auto (Urine sed) [#/Area]10-19 [HPF]High0-4 [facility] HospitalGlucose [Mass/volume] in Urine by Test strip Ordered By: Shayy Juan on 72-17-4794Mxtrfwr Test strip (U) [Mass/Vol]Normal mg/dLNormSt. John of God HospitalHemoglobin Test strip Ql (U)Ordered By: Shayy Juan on 55-96-4784Iavidnldrw Ql (U)TraceHighNegKindred Hospital LimaHyaline casts [#/area] in Urine sediment by Automated countOrdered By: Shayy Juan on 94-24-1515Gsqerum casts Auto (Urine sed) [#/Area]0-8 [LPF]0-8[facility] HospitalKetones [Presence] in Urine by Test stripon 72-74-1628Lbungkh Ql (U)TraceHighNegativeNOMS HealthcareComment on above:Order Comment: Comment c/o urinary symptoms or increased blood pressure Name Collection Type:: Clean-Voided MidstreamPerformed By: #### CUU, ADDONUAPLUS, AMNISURE- #### [facility] [address] [place] [address] USALeukocyte esterase [Presence] in Urine by Test stripon 50-46-8466Eragkrejn esterase Test strip Ql (U)1+HighNegativeNOMS Healthcare Comment on above:Order Comment: Comment c/o urinary symptoms or increased blood pressure Name Collection Type:: Clean-Voided MidstreamPerformed By: #### CUU, ADDONUAPLUS, AMNISURE- #### [facility] [address] [place] [id number] USALeukocytes [#/area] in Urine sediment by Automated count Ordered By: Shayy Juan on 61-06-3240AUJ Auto (Urine sed) [#/Area]10-19 [HPF]High0-4FBethesda North HospitalMucus [Presence] in Urine by AutomatedOrdered By: Shayy Juan on 08-10-7461Vbmpx Auto Ql (U)3+ [LPF] AbnormalCleveland Clinic Hillcrest HospitalNitrite Test strip Ql (U)Ordered By: Shayy Juan on 22-04-0880Gfgohcp Ql (U)NegativeNegativeCleveland Clinic Hillcrest HospitalOB URINE DRUG SCREEN (NO THC)on 70-22-3887Voeoszs s/s of acute impairmentMercy Health Perrysburg HospitalOB Urine Drug Screen (NO THC)on 12-22-2024 AMPHETAMINE SCREEN,URINENegativeNormalNegativeNOMS HealthcareComment on above: Order Comment: Comment c/o urinary symptoms or increased blood pressure Name Collection Type:: Clean-Voided MidstreamPerformed By: #### CUU, ADDONUAPLUS, AMNISURE- #### [place] [address] USABARBITURATE SCREEN,URINENegativeNormalNegativeNOMS HealthcareComment on above:Order Comment: Comment c/o urinary symptoms or increased blood pressure Name Collection Type:: Clean-Voided MidstreamPerformed By: #### CUU, ADDONUAPLUS, AMNISURE- #### [place] [address] USABENZODIAZEPINES SCREEN,URINENegativeNormalNegativeNOMS HealthcareComment on above:Order Comment: Comment c/o urinary symptoms or increased blood pressure Name Collection Type:: Clean-Voided MidstreamPerformed By: #### CUU, ADDONUAPLUS, AMNISURE- #### [place] [id number] USACOCAINE SCREEN,URINENegativeNormalNegativeNOMS Healthcare Comment on above:Order Comment: Comment c/o urinary symptoms or increased blood pressure Name Collection Type:: Clean-Voided MidstreamPerformed By: #### CUU, ADDONUAPLUS, AMNISURE- #### [place] [address] USAOPIATE SCREEN,URINENegativeNormalNegativeNOMS Healthcare Comment on above:Order Comment: Comment c/o urinary symptoms or increased blood pressure Name Collection Type:: Clean-Voided MidstreamPerformed By: #### CUU, ADDONUAPLUS, AMNISURE- #### [facility] [address] [place] [id number] USAPHENCYCLIDINE SCREEN, URINENegativeNormalNegativeNOMS HealthcareComment on above:These are unconfirmed results and should not be used for legal purposes. Drug Cut-Off Concentration: AMPH 1000 ng/mL VERO 200 ng/mL KALE 200 ng/mL COCM 300 ng/mL OP 300 ng/mL PCP 25 ng/mL Order Comment: Comment c/o urinary symptoms or increased blood pressure Name Collection Type:: Clean-Voided MidstreamResult Comment: These are unconfirmed results and should not be used for legal purposes. Drug Cut-Off Concentration: AMPH 1000 ng/mL VERO 200 ng/mL KALE 200 ng/mL COCM 300 ng/mL OP 300 ng/mL PCP 25 ng/mL PERFORMED BY: [place] [address] PATHOLOGIST CLOTH BALE HEADER MOLLY TAYLOR M.D.Performed By: #### CUU, ADDONUAPLUS, AMNISURE- #### [place] [id number] USAOpiates [Presence] in Urine by Screen methodOrdered By: Shayy Juan on 12-94-0539Vzlugxc Screen Ql (U)NegativeNegKindred Hospital LimaPhencyclidine Screen Ql (U)Ordered By: Shayy Juan on 78-00-1832Trtwbkybueeqw Ql (U)NegativeBucyrus Community Hospital Comment on above:These are unconfirmed results and should not be used for legal purposes. Drug Cut-Off Concentration: AMPH 1000 ng/mL VERO 200 ng/mL KALE 200 ng/mL COCM 300 ng/mL OP 300 ng/mL PCP 25 ng/mLProtein [Mass/volume] in Urine by Test stripon 37-00-7031Qfxheje (U) [Mass/Vol]30 mg/dLHighNegativeNOMS Healthcare Comment on above:Order Comment: Comment c/o urinary symptoms or increased blood pressure Name Collection Type:: Clean-Voided MidstreamPerformed By: #### CUU, ADDONUAPLUS, AMNISURE- #### [facility] [address] [place] [address] USASpecific gravity Test strip (U) [Rel density]Ordered By: Shayy Juan on 72-72-6802Lrrrjkwb gravity (U) [Rel density]1.0281.001-1.030 [facility] HospitalUrinalysis complete panel (U)on 12-22-2024 Interpretation and review of laboratory resultsAbnormalNOMS HealthcarepH (U)6 [pH]5.0 - 9.0NOMS HealthcareComment c/o urinary symptoms or increased blood pressure Name Collection Type:: Clean-Voided MidstreamFIRBryn Mawr Rehabilitation HospitalUrinalysis macro (dipstick) panel (U)Ordered By: Rosangela Keys on 14-01-8211Ttaejqmyg, UA NegativeNegative - 4(70) +++ mg/dLNOMS HealthcareBlood, UANegativeNegative - 50 Reji/mcLNOMS HealthcareClarity, UAClearNOMS HealthcareColor, UAYellowNOMS HealthcareGlucose, UA1+Negative - 2000(110) ++++ mg/dLNOMS Healthcare Interpretation and review of laboratory resultsAbnormalNOAL HealthcareKetones, UANegativeNegative - 160(16) ++++ mg/dLNOMS HealthcareLeukocytes, UA1+Negative - 500+++ Sal/mcLNOMS HealthcareNitrite, UANegativeNegative - PositiveNOMS HealthcarepH, UA65 - 9NOMS HealthcareProtein, UANegativeNegative - 2000(20) ++++ mg/dLNOMS HealthcareSpec Grav, UA11 - 1.03NOMS HealthcareUrobilinogen, UA0.20.2 - 12 mg/dLNOMS HealthcareNOMS HealthcareUrine Cultureon 71-66-2274Ookpdmpz identified Cx Nom (U)No Growth 2 Days PERFORMED BY: [address]Mo[address] [place] [id number] PATHOLOGIST CLOTH BALE HEADER MOLLY TAYLOR M.D.NormalThe [facility] Physician GroupComment on above: Performed By: #### CUU, ADDONUAPLUS, AMNISURE- #### [facility] [address] [place] [id number] USAUrine cultureOrdered By: Shayy Juan on 12-22-2024 Bacteria identified Cx Nom (U)No Growth 2 DaysC[facility] Urobilinogen Test strip (U) [Mass/Vol]Ordered By: Shayy Juan on 12-22-2024 Urobilinogen (U) [Mass/Vol]2 mg/dLTeays Valley Cancer CenterNoOhioHealth Nelsonville Health CenterpH of Urine by Test stripOrdered By: Shayy Juan on 33-94-2202mR (U)6.0 [pH] 5.0-9.0[facility] HospitalComment on above:Order Comment: Comment c/o urinary symptoms or increased blood pressure Name Collection Type:: Clean-Voided MidstreamPerformed By: #### CUU ADDONUAPLUS, AMNISURE- #### [facility]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 PERFORMED BY: [place] [address] PATHOLOGIST CLOTH BALE HEADER JACKI MINOR M.D.NormalThe [facility] Physician GroupComment on above: Performed By: #### CUU, ADDONUAPLUS, AMNISURE- #### [place] [address] USAUrine cultureOrdered By: Shayy Juan on 11-22-2024 Bacteria identified Cx Nom (U)2 DaysC[facility] Clinic Hillcrest Hospital Urobilinogen Test strip (U) [Mass/Vol]Ordered By: Shayy Juan on 11-22-2024 Urobilinogen (U) [Mass/Vol]Normal mg/dLNormSt. John of God Hospital Yeast.budding [Presence] in Urine by Computer assisted methodOrdered By: Shayy Juan on 46-98-5926Ebwfq.budding Computer assisted Ql (U)1+ [HPF]High None SeenCleveland Clinic Hillcrest HospitalpH of Urine by Test stripOrdered By: Shayy Juan on 11-57-0953qN (U)6.0 [pH]5.0-9.0[facility] HospitalComment on above:Order Comment: Comment c/o urinary symptoms or increased blood pressure Name Collection Type:: Clean-Voided MidstreamPerformed By: #### CUU, ADDONUAPLUS, AMNISURE- #### [facility] [address] [place] [address] USAUrinalysis macro (dipstick) panel (U)Ordered By: Rosangela Keys on 46-46-2014Letwpai, UANegativeNegative - 1999(110) ++++ mg/dLNOMS HealthcareInterpretation and review of laboratory resultsNormalNOBarnes-Jewish Saint [facility] Hospital Protein, UANegativeNegative - 1999(20) ++++ mg/dLNOAL HealthcareNOAL Healthcare Examination level ultrasoundon 10-17-2024 Indication Detailed anatomic survey. Maternal obesity, BMI >30 Impression The patient is referred for a detailed anatomic survey. - Single, live, intrauterine . - biometry is consistent with the established gestational age. - No malformations were visualized on a detailed anatomic survey, although some anatomical structures were suboptimally seen as detailed below. - The amniotic fluid volume is normal amount. - stomach was visualized - The placenta is anterior. - The Transabdominal cervical length measures 42.3 mm with no evidence of funneling or other dynamic changes. - Not all structural malformations can be detected by ultrasound examination. Recommendations Consider follow up growth in 4-5w Maternal Assessment Height 160 cm Height (ft) 5 ft Height (in) 3 in Physical Exam Initial weight (lb) 223 lb Initial BMI 39.50 kg/m Method Transabdominal ultrasound examination. View: Suboptimal view: limited by position. Suboptimal view: limited by maternal body habitus [place] . Number of fetuses: 1 Dating GA by prior assessment 25 w + 6 d KAPIL by prior assessment: 01/24/2025 Ultrasound examination on: 10/17/2024 GA by U/S based upon: AC, BPD, Femur, HC GA by U/S 27 w + 1 d KAPIL by U/S: 01/15/2025 Assigned: based on stated KAPIL, selected on 10/17/2024 Assigned GA 25 w + 6 d Assigned KAPIL: 01/24/2025 General Evaluation Cardiac activity present. FHR 159 bpm. movements: present. Presentation: cephalic Placenta: Placental site: anterior Umbilical cord: Cord vessels: 3 vessel cord Amniotic fluid: Amount of AF: normal amount. MVP 6.7 cm. LILO 22.7 cm. Q1 6.0 cm, Q2 6.0 cm, Q3 6.7 cm, Q4 4.1 cm Growth Overview Exam date GA BPD (mm) HC (mm) AC (mm) FL (mm) HL (mm) EFW (g) 10/17/2024 25w 6d 67.8 85% 246.1 65% 237.9 94% 49.3 86% 40.6 10% 1066 93% Biometry Standard BPD 67.8 mm 27w 2d 85% Hadlock OFD 84.5 mm 25w 3d 47% Nicolaides HC 246.1 mm 26w 3d 65% Tim Cerebellum tr 29.1 mm 25w 3d 38% Hill AC 237.9 mm 28w 1d 94% Hadlock Femur 49.3 mm 26w 5d 86% Tim Humerus 40.6 mm 24w 4d 10% Tim EFW 1,066 g 27w 0d 93% Hadlock EFW (lb) 2 lb EFW (oz) 6 oz EFW by: Hadlock (HC-AC-FL) Extended Assistant Athletic Trainer 5.3 mm CM 2.7 mm <1% Nicolaides Extremities / Bony Struc FL / HC 0.20 Other Structures FHR 159 bpm Anatomy Cranium: normal Lateral ventricles: normal Choroid plexus: normal Midline falx: normal Cavum septi pellucidi: normal Cerebellum: normal Cisterna magna: normal Head / Neck Vermis: normal Neck: suboptimally visualized Nuchal fold: normal Lips: normal Profile: suboptimally visualized Nose: normal Face Maxilla: suboptimally visualized Mandible: suboptimally visualized Orbits: normal Lens: normal 4-chamber view: normal RVOT view: suboptimally visualized LVOT view: suboptimally visualized 3-vessel view: suboptimally visualized 4-iszqwk-elpsizh view: normal Heart / Thorax Situs: situs solitus (normal) Aortic arch view: suboptimally visualized SVC: normal IVC: normal Cardiac axis: normal Rt lung: normal Lt lung: normal Diaphragm: normal Cord insertion: normal Stomach: normal Kidneys: normal Bladder: normal Genitals: visualized Abdomen Abdom. wall: normal Cervical spine: normal Thoracic spine: normal Lumbar spine: normal Sacral spine: suboptimally visualized Arms: normal Legs: normal Rt upper arm: normal Rt forearm: normal Rt hand: normal Rt fingers: normal Lt upper arm: normal Lt forearm: normal Lt hand: normal Lt fingers: normal Rt upper leg: normal Rt lower leg: normal Rt foot: normal Lt upper leg: normal Lt lower leg: normal Lt foot: normal sex: male sex: normal Wants to know sex: yes Maternal Structures Uterus / Cervix Uterus: Visualized Cervix: Visualized Approach: Transabdominal Cervical length 42.3 mm Other: Patient declined transvaginal ultrasound for cervical length. Ovaries / Tubes / Adnexa Rt ovary: Not visualized Lt ovary: Not visualized Performed By: Jackie Garcia RDMS Read By: Brandon Amos M.D.MATERNAL MEDICINESelect Medical [facility]health Rehabilitation HospitalRadiology Study observation (narrative)[facility] HospitalCNPNon [id number] (OBGYF2) SHANEKA NUGENT ([id number]) 4 F Date Time Provider Department 10/12/24 OB [facility] OBGYF2 During your visit today, we recorded the following information about you: Rosa Jefferson MA 10/12/2024 12:05 PM Signed Called pt regarding referral from [facility]. Verified name and . Referral for polyhydramnios: amount of AF: mildly increased - 23.1 cm . Pt had missed AB No h/o HTN. 1hr GTT WNL at 105. Meds: asa, magnesium, pnv ZdxvapwA73 WNL Pt offered and accepted appts at 345 on 10/17 starting with anatomy at 2 pm and followed by consult at 3 pm. No questions/concerns at this time. Instructions on how to get to office given. Rosa Jefferson MA Allergies As of Date: 10/12/2024 Noted Allergy Reaction LAMOTRIGINE 01/12/2024 2 - Rash Date Reviewed: 04/08/2024 Reviewed by: Beth Allison APRN.YARD ASSOCIATE - Fully Assessed Reason for Visit: Appointment [186] Prescriptions as of 10/12/2024 - naltrexone 50 mg tablet Take 1/2 tablet twice daily - buPROPion (WELLBUTRIN) 75 mg tablet Take one tablet one daily for 7 days, then increase to one tablet twice daily. Problem List As Of Date: 10/12/2024 (None) Encounter Status:Closed by ROSA JEFFERSON on 10/12/24[facility] HospitalGlucose tolerance, 1 houron 16-48-0791Wkygdyu 1 Hr post 50 g glucose PO [Mass/Vol]105 mg/dL70 - 139 mg/dLNOMS HealthcareComment on above:According to ADA, a glucose threshold of >139 mg/dL after 50-gram load identifies approximately 80% of women with gestational diabetes mellitus, while the sensitivity is further increased to approximately 90% by a threshold of >129 mg/dL. Performed at: [facility] LabAlan [place] [id number] Psychiatric Social Worker Supervisor: Terrance Valdez PhD, Phone: [phone] Langone Orthopedic Hospital Urinalysis macro (dipstick) panel (U)Ordered By: Rosangela Keys on 10-10-2024 Glucose, UANegativeNegative - 1999(110) ++++ mg/dLNOMS HealthcareInterpretation and review of laboratory resultsNormalNOAL HealthcareProtein, UANegativeNegative - 1999(20) ++++ mg/dLNOMS HealthcareNOMS HealthcareAMNISURE(PAMG-1)on 72-30-9926YEXJMSCQElkvnlikHjvduvthOLRQ HealthcareComment For suspected repture of membranesFIRELANDSNOMS HealthcareAmnisure(Pamg-1)on 54-64-2270Digklgzv NegativeNormalNegativeThe [facility] Physician GroupComment on above:Order Comment: Comment For suspected repture of membranesResult Comment: PERFORMED BY: [place] [address] [place] [address] PATHOLOGIST CLOTH BALE HEADER JACKI MINOR M.D.Performed By: #### AMNISURE-, ADDONUAPLUS, CUU, OBUDS #### [facility] [address] [place] [address] USAAmphetamine Screen Ql (U)Ordered By: BROCK TREJO on 95-48-9077Wldipytgeybf Ql (U)Amphetamines screenNegKindred Hospital LimaAppearance of UrineOrdered By: BROCK TREJO on 09-28-2024 Appearance (U)Urine appearanceAbnormalClearCleveland Clinic Hillcrest Hospital Bacteria [Presence] in Urine by AutomatedOrdered By: BROCK TREJO on 09-28-2024 Bacteria Auto Ql (U)Bacteria [Presence] in Urine by AutomatedHighNone Seen [facility] HospitalBarbiturates [Presence] in Urine by Screen methodOrdered By: BROCK TREJO on 35-94-2357Nswxfyitmddi Screen Ql (U) Barbiturates [Presence] in Urine by Screen methodNegKindred Hospital LimaBenzodiazepines Screen Ql (U)Ordered By: BROCK TREJO on 00-87-6713Wxmvvmwuebivkxk Ql (U)Benzodiazepines [Presence] in Urine by Screen methodNegKindred Hospital LimaBenzoylecgonine [Presence] in Urine by Screen methodOrdered By: BROCK TREJO on 34-31-6780Klzkrnhcmnhmmtq Screen Ql (U)Benzoylecgonine [Presence] in Urine by Screen methodNegative [facility] HospitalBilirubin Test strip Ql (U)Ordered By: BROCK TREJO on 52-44-5705Mijdaridd Ql (U)Bilirubin.total [Presence] in Urine by Test stripNegativeCleveland Clinic Hillcrest HospitalColor Auto (U)Ordered By: BROCK TREJO on 71-45-3710Jlbkt (U)Color of Urine by AutoYellowCleveland Clinic Hillcrest HospitalDipstick and Microscopicon 96-15-2443Hznzxstbdu (U)Cloudy Critically abnormalClearThe [facility] Physician GroupComment on above:Order Comment: Comment c/o urinary symptoms or increased blood pressure Name Collection Type:: Clean-Voided MidstreamPerformed By: #### AMNISURE-, ADDONUAPLUS, CUU, OBUDS #### [facility] [address] [place] [address] USABacteria,Urine2+HighNone SeenBroward Health Medical Center Physician Group Comment on above:Order Comment: Comment c/o urinary symptoms or increased blood pressure Name Collection Type:: Clean-Voided MidstreamPerformed By: #### AMNISURE-, ADDONUAPLUS, CUU, OBUDS #### [facility] [address] [place] [address] USABilirubin,UrineNegativeNormalNegativeBroward Health Medical Center Physician GroupComment on above:Order Comment: Comment c/o urinary symptoms or increased blood pressure Name Collection Type:: Clean-Voided MidstreamPerformed By: #### AMNISURE-, ADDONUAPLUS, CUU, OBUDS #### [facility] [address] [place] [address] USAColor (U)Light-YellowNormalYellowThe [facility] Physician GroupComment on above:Order Comment: Comment c/o urinary symptoms or increased blood pressure Name Collection Type:: Clean-Voided MidstreamPerformed By: #### AMNISURE-, ADDONUAPLUS, CUU, OBUDS #### [facility] [address] [place] [address] USAGlucose Ql (U)NormalNormalNormalThe [facility] Physician GroupComment on above:Order Comment: Comment c/o urinary symptoms or increased blood pressure Name Collection Type:: Clean-Voided MidstreamPerformed By: #### AMNISURE-, ADDONUAPLUS, CUU, OBUDS #### [facility] [address] [place], [place] [address] USAHyaline Casts,Hyizp9-9Pzxvun2-2Byr [facility] Physician GroupComment on above:Order Comment: Comment c/o urinary symptoms or increased blood pressure Name Collection Type:: Clean-Voided MidstreamPerformed By: #### AMNISURE-, ADDONUAPLUS, CUU, OBUDS #### [facility] [address] [place], [place] [address] USAKetones Ql (U)NegativeNormalNegativeThe [facility] Physician GroupComment on above:Order Comment: Comment c/o urinary symptoms or increased blood pressure Name Collection Type:: Clean-Voided MidstreamPerformed By: #### AMNISURE-, ADDONUAPLUS, CUU, OBUDS #### [place] [address] USALeukocyte esterase Test strip Ql (U)2+HighNegativeThe [facility] Physician GroupComment on above:Order Comment: Comment c/o urinary symptoms or increased blood pressure Name Collection Type:: Clean-Voided MidstreamPerformed By: #### AMNISURE-, ADDONUAPLUS, CUU, OBUDS #### [place] [address] USAMucus,UrineRareNormalThe [facility] Physician GroupComment on above:Order Comment: Comment c/o urinary symptoms or increased blood pressure Name Collection Type:: Clean-Voided MidstreamResult Comment: PERFORMED BY: [place] [address] PATHOLOGIST CLOTH BALE HEADER JACKI MINOR M.D.Performed By: #### AMNISURE-, ADDONUAPLUS, CUU, OBUDS #### [place] [address] USANitrite,UrineNegativeNormalNegativeThe [facility] Physician GroupComment on above:Order Comment: Comment c/o urinary symptoms or increased blood pressure Name Collection Type:: Clean-Voided MidstreamPerformed By: #### AMNISURE-, ADDONUAPLUS, CUU, OBUDS #### [facility] [address] [place] [address] USAOccult Blood,UrineNegativeNormalNegativeThe [facility] Physician GroupComment on above:Order Comment: Comment c/o urinary symptoms or increased blood pressure Name Collection Type:: Clean-Voided MidstreamResult Comment: PERFORMED BY: [place] [address] PATHOLOGIST CLOTH BALE HEADER JACKI MINOR M.D.Performed By: #### AMNISURE-, ADDONUAPLUS, CUU, OBUDS #### [place] [address] USApH (U)6.5 [pH]Normal5.0-9.0The [facility] Comment on above:Order Comment: Comment c/o urinary symptoms or increased blood pressure Name Collection Type:: Clean-Voided MidstreamPerformed By: #### AMNISURE-, ADDONUAPLUS, CUU, OBUDS #### [place] [address] USAProtein,UrineTraceHighNegativeThe [facility] Physician GroupComment on above:Order Comment: Comment c/o urinary symptoms or increased blood pressure Name Collection Type:: Clean-Voided MidstreamPerformed By: #### AMNISURE-, ADDONUAPLUS, CUU, OBUDS #### [place] [address] USARBC,Bknhq5-6Xzqeuz3-1Kxg [facility] Physician GroupComment on above:Order Comment: Comment c/o urinary symptoms or increased blood pressure Name Collection Type:: Clean-Voided MidstreamPerformed By: #### AMNISURE-, ADDONUAPLUS, CUU, OBUDS #### [place] [address] USASpecificy [place],Urine1.364Xtebdu5.001-1.030The [facility] Physician GroupComment on above:Order Comment: Comment c/o urinary symptoms or increased blood pressure Name Collection Type:: Clean-Voided MidstreamPerformed By: #### AMNISURE-, ADDONUAPLUS, CUU, OBUDS #### [place] [address] USASquamous Epithelial Cell,Wexvg68-82Jgoi4-1Hpj [facility] Physician GroupComment on above:Order Comment: Comment c/o urinary symptoms or increased blood pressure Name Collection Type:: Clean-Voided MidstreamPerformed By: #### AMNISURE-, ADDONUAPLUS, CUU, OBUDS #### [place] [address] USAUrobilinogen,UrineNormalNormalNormalThe [facility] Physician GroupComment on above:Order Comment: Comment c/o urinary symptoms or increased blood pressure Name Collection Type:: Clean-Voided MidstreamPerformed By: #### AMNISURE-, ADDONUAPLUS, CUU, OBUDS #### [facility] [address] [place] [address] USAWBC,Ogydu8-0Tedj4-6Szc [facility] Physician GroupComment on above:Order Comment: Comment c/o urinary symptoms or increased blood pressure Name Collection Type:: Clean-Voided MidstreamPerformed By: #### AMNISURE-, ADDONUAPLUS, CUU, OBUDS #### [facility] [address] [place] [address] USAEpithelial cells.squamous [#/area] in Urine sediment by Automated countOrdered By: BROCK TREJO on 39-60-5673Kvwhcsonic cells.squamous Auto (Urine sed) [#/Area]Epithelial cells.squamous [#/area] in Urine sediment by Automated countHigh02FBethesda North HospitalErythrocytes [#/area] in Urine sediment by Automated countOrdered By: BROCK TREJO on 46-13-4985CEG Auto (Urine sed) [#/Area]Erythrocytes [#/area] in Urine sediment by Automated count 04FBethesda North HospitalGlucose [Mass/volume] in Urine by Test strip Ordered By: BROCK TREJO on 33-43-9876Omirpyb Test strip (U) [Mass/Vol]Glucose [Mass/volume] in Urine by Test stripNormSt. John of God Hospital Hemoglobin Test strip Ql (U)Ordered By: BROCK TREJO on 97-47-5807Xqscpnhixa Ql (U)Hemoglobin [Presence] in Urine by Test stripNegativeCleveland Clinic Hillcrest HospitalHyaline casts [#/area] in Urine sediment by Automated countOrdered By: BROCK TREJO on 40-88-3708Okgbjkv casts Auto (Urine sed) [#/Area]Hyaline casts [#/area] in Urine sediment by Automated count0-8[facility] Hillcrest HospitalKetones Test strip Ql (U)Ordered By: BROCK TREJO on 44-31-5914Skafrus Ql (U)Ketones [Presence] in Urine by Test stripNegKindred Hospital LimaLeukocyte esterase [Presence] in Urine by Test stripOrdered By: BROCK TREJO on 73-57-7736Rzzyovdke esterase Test strip Ql (U)Leukocyte esterase [Presence] in Urine by Test stripHighNegKindred Hospital Lima Leukocytes [#/area] in Urine sediment by Automated countOrdered By: BROCK TREJO on 34-66-7316DQM Auto (Urine sed) [#/Area]Leukocytes [#/area] in Urine sediment by Automated countTeays Valley Cancer Center002 Estrada StreetMucus [Presence] in Urine by AutomatedOrdered By: BROCK TREJO on 42-29-8635Nsaeo Auto Ql (U)Mucus [Presence] in Urine by AutomatedCleveland Clinic Hillcrest HospitalNitrite Test strip Ql (U)Ordered By: BROCK TREJO on 95-83-3157Lphpteu Ql (U)Nitrite [Presence] in Urine by Test stripNegKindred Hospital LimaNo Panel InformationOrdered By: BROCK TREJO on 11-59-9510Jqqfp Membranes Rupture (PAMG-1)NegativeNegKindred Hospital LimaOB URINE DRUG SCREEN (NO THC)on 62-26-1829VMXDSOMZHYC SCREEN,URINENegativeNegativeNOMS Healthcare BARBITURATE SCREEN,URINENegativeNegativeNOMS HealthcareBENZODIAZEPINES SCREEN,URINENegativeNegativeNOMS HealthcareCOCAINE SCREEN,URINENegativeNegative NOMS HealthcareOPIATE SCREEN,URINENegativeNegativeNOMS HealthcarePHENCYCLIDINE SCREEN, URINENegativeNegativeNOMS HealthcareComment on above:These are unconfirmed results and should not be used for legal purposes. Drug Cut-Off Concentration: AMPH 1000 ng/mL VERO 200 ng/mL KALE 200 ng/mL COCM 300 ng/mL OP 300 ng/mL PCP 25 ng/mL Comment s/s of acute impairmentFIRWORCESTER CITY HOSPITAL HealthcareOB Urine Drug Screen (NO THC)on 35-71-0420Dyqxsvnzmwk Screen,UrineNegativeNormalNegativeBroward Health Medical Center Physician GroupComment on above:Order Comment: Comment s/s of acute impairment Performed By: #### AMNISURE-, ADDONUAPLUS, CUU, OBUDS #### [facility] [address] [place] [address] USABarbiturate Screen,UrineNegativeNormalNegativeThe [facility] Physician GroupComment on above:Order Comment: Comment s/s of acute impairmentPerformed By: #### AMNISURE-, ADDONUAPLUS, CUU, OBUDS #### [place] [address] USABenzodiazepines Screen,UrineNegativeNormalNegativeThe [facility] Physician GroupComment on above:Order Comment: Comment s/s of acute impairmentPerformed By: #### AMNISURE-, ADDONUAPLUS, CUU, OBUDS #### [place] [address] USACocaine Screen,UrineNegativeNormalNegativeThe [facility] Physician GroupComment on above:Order Comment: Comment s/s of acute impairment Performed By: #### AMNISURE-, ADDONUAPLUS, CUU, OBUDS #### [place] [address] USAOpiate Screen,UrineNegativeNormalNegativeThe [facility] Physician GroupComment on above:Order Comment: Comment s/s of acute impairment Performed By: #### AMNISURE-, ADDONUAPLUS, CUU, OBUDS #### [place] [address] USAPhencyclidine Screen, UrineNegativeNormalNegativeThe [facility] Physician GroupComment on above:Order Comment: Comment s/s of acute impairmentResult Comment: These are unconfirmed results and should not be used for legal purposes. Drug Cut-Off Concentration: AMPH 1000 ng/mL VERO 200 ng/mL KALE 200 ng/mL COCM 300 ng/mL OP 300 ng/mL PCP 25 ng/mL PERFORMED BY: [place] [address] PATHOLOGIST CLOTH BALE HEADER JACKI MINOR M.D.Performed By: #### AMNISURE-, ADDONUAPLUS, CUU, OBUDS #### [address] [place] [address] USAOpiates [Presence] in Urine by Screen methodOrdered By: BROCK TREJO on 46-84-4369Jrqraoq Screen Ql (U)Opiates [Presence] in Urine by Screen methodNegKindred Hospital LimaPhencyclidine Screen Ql (U)Ordered By: BROCK TREJO on 62-55-4827Pmnjcenyumekv Ql (U)Phencyclidine [Presence] in Urine by Screen methodNegKindred Hospital Lima Comment on above:These are unconfirmed results and should not be used for legal purposes. Drug Cut-Off Concentration: AMPH 1000 ng/mL VERO 200 ng/mL KALE 200 ng/mL COCM 300 ng/mL OP 300 ng/mL PCP 25 ng/mLProtein Test strip (U) [Mass/Vol] Ordered By: BROCK TREJO on 46-16-3052Zrytyup (U) [Mass/Vol]Protein [Mass/volume] in Urine by Test stripTeays Valley Cancer CenterNegProtestant Deaconess Hospitalpecific gravity Test strip (U) [Rel density]Ordered By: BROCK TREJO on 53-10-2938Lajgurie gravity (U) [Rel density]Specific gravity of Urine by Test strip1.001-1.030[facility]st HospitalUrinalysis complete panel (U)on 92-81-7358Lhxaprgevy (U)CloudyCritically abnormalClearNOMS Healthcare BILIRUBIN,URINENegativeNegativeNOMS HealthcareColor (U)Light-YellowYellowNOMS HealthcareGlucose Ql (U)NormalNormalNOMS HealthcareInterpretation and review of laboratory resultsAbnormalNOMS HealthcareKetones Ql (U)NegativeNegativeNOMS HealthcareLeukocyte esterase Test strip Ql (U)2+HighNegativeNOMS Healthcare NITRITE,URINENegativeNegativeNOMS HealthcareOCCULT BLOOD,URINENegativeNegative NOMS HealthcarepH (U)6.5 [pH]5.0 - 9.0NOMS HealthcarePROTEIN,URINETraceHigh NegativeNOMS HealthcareSPECIFICY GRAVITY,URINE1.0181.001 - 1.030[facility] UROBILINOGEN,URINENormalNormalNOMS HealthcareComment c/o urinary symptoms or increased blood pressure Name Collection Type:: Clean-Voided MidstreamATRIUM HEALTH STEELE CREEKELANDSNOMS HealthcareUrine Cultureon 55-88-0997Sdjyonzs identified Cx Nom (U)20,000 colonies/ml mixed bacterial skin contaminants 2 Days PERFORMED BY: [facility] [address] [place] [address] PATHOLOGIST CLOTH BALE HEADER JACKI MINOR M.D.NormalBroward Health Medical Center Physician GroupComment on above: Performed By: #### AMNISURE-, ADDONUAPLUS, CUU, OBUDS #### [place] [address] USAUrine cultureOrdered By: BROCK TREJO on 09-28-2024 Bacteria identified Cx Nom (U)Urine cultureCleveland Clinic Hillcrest Hospital Urobilinogen Test strip (U) [Mass/Vol]Ordered By: BROCK TREJO on 09-28-2024 Urobilinogen (U) [Mass/Vol]Urobilinogen [Mass/volume] in Urine by Test strip NormalCleveland Clinic Hillcrest HospitalpH Test strip (U)Ordered By: BROCK TREJO on 42-98-8364lK (U)pH of Urine by Test strip5.0-9.0[facility] HospitalUrinalysis macro (dipstick) panel (U)Ordered By: Winifred Reyes on 25-34-3885Rlwvilbcv, UANegativeNegative - 4(70) +++ mg/dLNOMS HealthcareBlood, UANegativeNegative - 50 Reji/mcLNOMS HealthcareClarity, UAClearNOMS Healthcare Color, UAYellowNOMS HealthcareGlucose, UANegativeNegative - 2000(110) ++++ mg/dL NOMS HealthcareInterpretation and review of laboratory resultsNormalNOMS HealthcareKetones, UANegativeNegative - 160(16) ++++ mg/dLNOMS Healthcare Leukocytes, UANegativeNegative - 500+++ Sal/mcLNOMS HealthcareNitrite, UA NegativeNegative - PositiveNOMS HealthcarepH, UA75 - 9NOMS HealthcareProtein, UA NegativeNegative - 2000(20) ++++ mg/dLNOMS HealthcareSpec Grav, UA1.0151 - 1.03 NOMS HealthcareUrobilinogen, UA1.00.2 - 12 mg/dLNOMS HealthcareNOMS Healthcare Urinalysis macro (dipstick) panel (U)Ordered By: Winifred Reyes on 09-07-2024 Bilirubin, UANegativeNegative - 4(70) +++ mg/dLNOMS HealthcareBlood, UANegative Negative - 50 Reji/mcLNOMS HealthcareClarity, UAClearNOMS HealthcareColor, UA YellowNOMS HealthcareGlucose, UANegativeNegative - 2000(110) ++++ mg/dLNOAL HealthcareInterpretation and review of laboratory resultsNormalNOAL Healthcare Ketones, UANegativeNegative - 160(16) ++++ mg/dLNOAL HealthcareLeukocytes, UA NegativeNegative - 500+++ Sal/mcLNOMS HealthcareNitrite, UANegativeNegative - PositiveNOMS HealthcarepH, UA75 - 9NOMS HealthcareProtein, UANegativeNegative - 2000(20) ++++ mg/dLNOAL HealthcareSpec Grav, UA1.0151 - 1.03NOAL Healthcare Urobilinogen, UA1.00.2 - 12 mg/dLNOAL HealthcareNOAL HealthcareAmnisure(Pamg-1) on 12-59-5287WerydjatZejurlsaBdbeltVbpidsuxFxl [facility] Physician GroupComment on above:Result Comment: PERFORMED BY: [place] [address] PATHOLOGIST CLOTH BALE HEADER JACKI MINOR M.D.Performed By: #### HADLEY, CUU #### [facility] [address] [place] [id number] USABand form neutrophils/100 WBC Manual cnt (Bld)Ordered By: Willam Martinez on 39-50-3931Ujvh form neutrophils/100 WBC (Bld)Peripheral white blood cell differential % bands, microscopic exam0-5FBethesda North HospitalBasic Metabolic Panelon 33-85-6040Hmwqq gap [Moles/Vol]10.6 mmol/L Normal6.0-15.0The [facility] Physician GroupComment on above:Performed By: #### CUU, ADDONUAPLUS, AMNISURE- #### [facility] [address] [id number] USACalcium [Mass/Vol]9.4 mg/dLNormal8.6-10.3The [facility] Physician GroupComment on above:Performed By: #### CULeyla ADDONUAPLUS, AMNISURE- #### [facility] [address] [place] [address] USAChloride [Moles/Vol]104 mmol/DQscvzr47-683Zxi [facility] Physician GroupComment on above:Performed By: #### CULeyla, ADDONUAPLUS, AMNISURE- #### [facility] [address] [place] [address] USACO2 [Moles/Vol]23.1 mmol/QLaiqiu69.0-31.0The [facility] Physician GroupComment on above:Performed By: #### AMOL ADDONUAPLUS, AMNISURE- #### [place] [address] USACreatinine [Mass/Vol]0.44 mg/dLLow0.60-1.20The [facility] Physician GroupComment on above:Performed By: #### AMOL, ADDONUAPLUS, AMNISURE- #### [place] [address] USACreatinine Clr Calc Jmhcxsac703.71NormalThe [facility] Physician GroupComment on above:Result Comment: PERFORMED BY: [place] [address] PATHOLOGIST CLOTH BALE HEADER JACKI MINOR M.D.Performed By: #### CULeyla, ADDONUAPLUS, AMNISURE- #### [place] [address] USAGFR/1.73 sq M.predicted MDRD (S/P/Bld) [Vol rate/Area] mL/min/{1.73_m2}NormalThe [facility] Physician GroupComment on above:Performed By: #### CUU, ADDONUAPLUS, AMNISURE- #### [facility] [address] [place] [address] USAGlucose [Mass/Vol]89 mg/pMRtholp79-483Gay [facility] Physician GroupComment on above:Result Comment: Random Glucose Reference Range is dependent on time and content of last meal. Glucose of more than 200 mg/dL in a nonstressed, ambulatory subject supports the diagnosis of Diabetes Mellitus. ADA recommended reference rangePerformed By: #### CUU, ADDONUAPLUS, AMNISURE- #### [facility] [address] [place] [address] USAPotassium [Moles/Vol]3.7 mmol/LNormal3.5-5.1The [facility] Physician GroupComment on above:Performed By: #### CUU, ADDONUAPLUS, AMNISURE- #### [facility] [address] [place] [address] USASodium [Moles/Vol]134 mmol/FWkz993-539Ohs [facility] Physician GroupComment on above:Performed By: #### CUU, ADDONUAPLUS, AMNISURE- #### [facility] [address] [place] [address] USAUrea nitrogen [Mass/Vol]7 mg/dLNormal7-25The [facility] Physician GroupComment on above:Performed By: #### CUU, ADDONUAPLUS, AMNISURE- #### [facility] [address] [place] [address] USABasophils Auto (Bld) [#/Vol]Ordered By: Willam Martinez on 36-01-0242Hqmspvjpw (Bld) [#/Vol]Automated basophil countCleveland Clinic Hillcrest HospitalBasophils/100 WBC Auto (Bld)Ordered By: Willam Martinez on 44-90-9246Vnpgfbzra/100 WBC (Bld)Automated basophil %[facility] HospitalBlood toxic granulation detection by light microscopyOrdered By: Willam Martinez on 65-44-7773Yfbvg granules LM Ql (Bld)Blood toxic granulation detection by light microscopyCleveland Clinic Hillcrest HospitalCalcium [Mass/volume] in Serum or PlasmaOrdered By: Willam Martinez on 08-29-2024 Calcium [Mass/Vol]Calcium [Mass/volume] in Serum or Plasma8.6-10.3FBethesda North HospitalCarbon dioxide, total [Moles/volume] in Serum or Plasma Ordered By: Willam Martinez on 49-55-1439FX3 [Moles/Vol]Carbon dioxide, total [Moles/volume] in Serum or Atovnd26.0-31.0[facility] Chlamydia/GC Amplificationon 58-79-7660Tovgvsrtf Trachomotis, NAANegativeNormal NegativeThe [facility] Physician GroupComment on above:Order Comment: Comment c/o urinary symptoms or increased blood pressure Name Collection Type:: Clean-Voided MidstreamPerformed By: #### CUU, ADDONUAPLUS, AMNISURE- #### [facility] [address] [place] [address] USANeisseria Gonorrhoeae, NAANegativeNormalNegativeThe [facility] Physician GroupComment on above:Order Comment: Comment c/o urinary symptoms or increased blood pressure Name Collection Type:: Clean-Voided MidstreamResult Comment: Performed at: =[facility] [id number] Psychiatric Social Worker Supervisor: Alba Bahena MD, Phone: [phone] PERFORMED BY: [facility] [address] [facility] [place] [address] PATHOLOGIST CLOTH BALE HEADER JACKI MINOR M.D.Performed By: #### CUU, ADDONUAPLUS, AMNISURE- #### [facility] [address] [place] [address] USAChloride [Moles/volume] in Serum or PlasmaOrdered By: Willam Martinez on 01-42-4106Xbgalseb [Moles/Vol]Chloride [Moles/volume] in Serum or Vzcnzr35-665DcvngodklCleveland Clinic Hillcrest HospitalCreatinine [Mass/volume] in Serum or PlasmaOrdered By: Willam Martinez on 25-19-1819Arqeljieaz [Mass/Vol]Creatinine [Mass/volume] in Serum or PlasmaLow0.60-1.20[facility] HospitalDiff and CBCon 74-46-5491Dlnt form neutrophils/100 WBC (Bld)1 %Normal0-5The [facility] Physician GroupComment on above:Performed By: #### CUU, ADDONUAPLUS, AMNISURE- #### [place] [address] USAEosinophils/100 WBC (Bld)1 %Normal1-3The [facility] Physician GroupComment on above:Performed By: #### CUU, ADDONUAPLUS, AMNISURE- #### [place] [address] USAErythrocyte distribution width (RBC) [Ratio]12.7 %Normal 11.9-15.3The [facility] Physician GroupComment on above:Performed By: #### CUU, ADDONUAPLUS, AMNISURE- #### [place] [address] USAGiant Platelet Tally1 /100{WBC}NormalThe [facility] Physician GroupComment on above:Result Comment: PERFORMED BY: [place] [address] PATHOLOGIST CLOTH BALE HEADER JACKI MINOR M.D.Performed By: #### CUU, ADDONUAPLUS, AMNISURE- #### [place] [address] USAHematocrit (Bld) [Volume fraction]34.4 %Kyontd50.0-46.4The [facility] Physician GroupComment on above:Performed By: #### CUU, ADDONUAPLUS, AMNISURE- #### [place] [address] USAHemoglobin (Bld) [Mass/Vol]11.9 g/oPIkytsw58.8-15.4The [facility] Physician GroupComment on above:Performed By: #### CUU, ADDONUAPLUS, AMNISURE- #### [place] [address] USALymphocytes/100 WBC (Bld)22 %Llhwik89-15Jud [facility] Physician GroupComment on above:Performed By: #### CUU, ADDONUAPLUS, AMNISURE- #### [place] [address] USAMCH (RBC) [Entitic mass]30.4 pzXqgsnt27.7-34.3The [facility] Physician GroupComment on above:Performed By: #### CULeyla ADDONUAPLUS, AMNISURE- #### [place] [address] USAMCV (RBC) [Entitic vol]87.7 pWFezkrd28-467Clp [facility] Physician GroupComment on above:Performed By: #### CULeyla ADDONUAPLUS, AMNISURE- #### [place] [address] USAMean Corpuscular HGB Conc34.7 g/sMXcreji68.0-35.0The [facility] Physician GroupComment on above:Performed By: #### AMOL ADDONUAPLUS, AMNISURE- #### [place] [address] USAMonocytes/100 WBC (Bld)26.45 %High0.00-20.00The [facility] Physician GroupComment on above:Result Comment: For adults in ED, MDW > 20.0 may be associated with a higher risk of sepsis during the first 12 hrs of hospital admission The predictive value of MDW for identifying sepsis in patients with hematological abnormalities has not been establishedPerformed By: #### AMOL ADDONUAPLUS, AMNISURE- #### [place] [address] USAMonocytes/100 WBC (Bld)7 %Normal2-11The [facility] Physician GroupComment on above:Performed By: #### CULeyla ADDONUAPLUS, AMNISURE- #### [place] [address] USAPlatelet EstimateNormalNormalNormalThe [facility] Physician GroupComment on above:Performed By: #### CULeyla ADDONUAPLUS, AMNISURE- #### [place] [address] USAPlatelet mean volume (Bld) [Entitic vol]7.0 fLNormal 6.3-10.7The [facility] Physician GroupComment on above:Performed By: #### CUU, ADDONUAPLUS, AMNISURE- #### [place] [address] USAPlatelet MorphologyNormalNormHCA Florida [facility]ied[facility] Physician GroupComment on above:Result Comment: PERFORMED BY: [place] [address] PATHOLOGIST CLOTH BALE HEADER JACKI MINOR M.D.Performed By: #### CUU, ADDONUAPLUS, AMNISURE- #### [place] [address] USAPlatelets (Bld) [#/Vol]257 10*3/bOPvchvs345-368Zdf [facility] Physician GroupComment on above:Performed By: #### CUU, ADDONUAPLUS, AMNISURE- #### [place] [address] USARBC (Bld) [#/Vol]3.92 10*6/uLNormal3.60-5.00The [facility] Physician GroupComment on above:Performed By: #### CUU, ADDONUAPLUS, AMNISURE- #### [place] [address] USARBC morphology finding Nom (Bld)NormalJackson Memorial Hospital Physician GroupComment on above:Performed By: #### CUU, ADDONUAPLUS, AMNISURE- #### [place] [address] USASegmented neutrophils/100 WBC (Bld)69 %Jbrmji04-18Umf [facility] Physician GroupComment on above:Performed By: #### CUU, ADDONUAPLUS, AMNISURE- #### [place] [address] USAToxic GranulationSlightNoCount includes the [facility] Physician Group Comment on above:Performed By: #### CUU, ADDONUAPLUS, AMNISURE- #### [place] [address] USAWBC (Bld) [#/Vol]11.2 10*3/uLNormal3.8-11.6The [facility] Physician GroupComment on above:Performed By: #### CUU, ADDONUAPLUS, AMNISURE- #### [facility] [address] [place] [address] USAEosinophils Auto (Bld) [#/Vol]Ordered By: Willam Martinez on 71-20-0150Tdwplbrhqpl (Bld) [#/Vol]Automated eosinophil countCleveland Clinic Hillcrest HospitalEosinophils/100 WBC Auto (Bld)Ordered By: Willam Martinez on 00-16-2634Nibrpeiamze/100 WBC (Bld)Automated eosinophil %[facility] HospitalEosinophils/100 WBC Manual cnt (Bld)Ordered By: Willam Martinez on 90-64-6615Qwkczxkknvi/100 WBC (Bld)Eosinophils/100 leukocytes in Blood by Manual count1-3FBethesda North HospitalErythrocyte distribution width Auto (RBC) [Ratio]Ordered By: Willam Martinez on 08-29-2024 Erythrocyte distribution width (RBC) [Ratio]Erythrocyte distribution width [Ratio] by Automated count11.9-15.3FBethesda North HospitalErythrocyte morphology finding [Identifier] in BloodOrdered By: Willam Martinez on 64-35-8566VTQ morphology finding Nom (Bld)RBC morphologyNormalCleveland Clinic Hillcrest HospitalFungal Smearon 23-63-3754Vgtnwz SmearFungus Smear Results No Yeast Like Elements Seen Trichomonas Screen No Trichomonas Seen Trich Reference Reference range = None Seen PERFORMED BY: [place] [address] PATHOLOGIST CLOTH BALE HEADER JACKI MINOR M.D.NormalThe [facility] Physician GroupComment on above: Performed By: #### CUU, ADDONUAPLUS, AMNISURE- #### [facility] [address] [place] [address] [place] [address] USAFungal smearOrdered By: Willam Martinez on 08-29-2024 Fungus identified Fungus stain Nom (Unsp spec)Fungal smearCleveland Clinic Hillcrest HospitalGenital Cultureon 07-74-2379Aoqswyw CultureGenital Results Light Normal Urogenital Lorri 2 Days No More GC Specimen not tested for Neisseria gonorrheae PERFORMED BY: [address] [place] [address] PATHOLOGIST CLOTH BALE HEADER JACKI MINOR M.D.NormalBroward Health Medical Center Physician GroupComment on above: Performed By: #### CUGEN #### [facility] [address] [place], [place] [id number] USAGenital specimen bacteria identification by aerobic cultureOrdered By: Willam Martinez on 93-09-4211Bgkdoonx identified Aer cx Nom (Genital specimen)Genital specimen bacteria identification by aerobic culture [facility] HospitalGiant platelets/100 leukocytes [Ratio] in Blood by Manual countOrdered By: Willam Martinez on 74-62-1817Novwy platelets/100 WBC Manual cnt (Bld) [Ratio]Giant platelets/100 leukocytes [Ratio] in Blood by Manual countCleveland Clinic Hillcrest HospitalGlucose [Mass/volume] in Serum or PlasmaOrdered By: Willam Martinez on 97-53-1512Woidobu [Mass/Vol]Glucose [Mass/volume] in Serum or Nlsyag87-764CyiudyqpgCleveland Clinic Hillcrest HospitalComment on above:ADA recommended reference rangeRandom Glucose Reference Range is dependent on time and content of last meal. Glucose of more than 200 mg/dL in a nonstressed, ambulatory subject supports the diagnosisof Diabetes Mellitus. Hematocrit Auto (Bld) [Volume fraction]Ordered By: Willam Martinez on 36-76-6296Hdpdczqjkh (Bld) [Volume fraction]Hematocrit [Volume Fraction] of Blood by Automated count34.0-46.4FBethesda North HospitalHemoglobin [Mass/volume] in BloodOrdered By: Willam Martinez on 50-97-0065Zsfgfrdbdk (Bld) [Mass/Vol]Hemoglobin [Mass/volume] in Blood11.8-15.4FBethesda North HospitalLaboratory - Microbiology and Antimicrobial susceptibilityOrdered By: Willam Martinez on 08-29-2024. trachomatis DNA EDDIE+probe Ql (Unsp spec) NegativeNegativeCleveland Clinic Hillcrest HospitalN. gonorrhoeae DNA EDDIE+probe Ql (Unsp spec)NegativeNegativeCleveland Clinic Hillcrest HospitalComment on above: Performed at: =[facility]co[address] [id number] Director: Alba Bahena MD, Phone: [phone] [#/volume] corrected for nucleated erythrocytes in Blood by Automated counOrdered By: Willam Martinez on 66-91-0923QMF corrected for nucl RBC Auto (Bld) [#/Vol] Leukocytes [#/volume] corrected for nucleated erythrocytes in Blood by Automated coun3.8-11.6FBethesda North HospitalLymphocytes Auto (Bld) [#/Vol] Ordered By: Willam Martinez on 12-23-9976Hzxiiipwvvf (Bld) [#/Vol]Lymphocytes [#/volume] in Blood by Automated countCleveland Clinic Hillcrest Hospital Lymphocytes/100 WBC Auto (Bld)Ordered By: Willam Martinez on 08-29-2024 Lymphocytes/100 WBC (Bld)Lymphocytes/100 leukocytes in Blood by Automated count [facility] HospitalLymphocytes/100 WBC Manual cnt (Bld)Ordered By: Willam Martinez on 39-32-9648Bexgmbubosv/100 WBC (Bld)Lymphocytes/100 leukocytes in Blood by Manual ixtrn59-42TcmcxgkloAdams County Regional Medical Center Auto (RBC) [Entitic mass]Ordered By: Willam Martinez on 31-21-4356YOH (RBC) [Entitic mass]MCH [Entitic mass] by Automated count24.7-34.3FBethesda North HospitalMCHC Auto (RBC) [Mass/Vol]Ordered By: Willam Martinez on 28-55-5007PHXE (RBC) [Mass/Vol]MCHC [Mass/volume] by Automated count32.0-35.0 [facility] HospitalMCV Auto (RBC) [Entitic vol]Ordered By: Willam Martinez on 73-72-8395RKH (RBC) [Entitic vol]MCV [Entitic volume] by Automated uqadu46-148ZpevzhfvrCleveland Clinic Hillcrest HospitalMonocyte distribution width [Entitic volume] in Blood by AutomatedOrdered By: Willam Martinez on 45-74-8036Orfljkjq distribution width Auto (Bld) [Entitic vol]Monocyte distribution width [Entitic volume] in Blood by AutomatedHigh0.00-20.00[facility] Comment on above:For adults in ED, MDW > 20.0 may be associated with a higher risk of sepsis during the first 12 hrs of hospital admissionThe predictive value of MDW for identifying sepsis in patients with hematological abnormalities has not been establishedMonocytes Auto (Bld) [#/Vol]Ordered By: Willam Martinez on 75-93-9456Duxbnmanr (Bld) [#/Vol]Automated blood monocyte countCleveland Clinic Hillcrest HospitalMonocytes/100 WBC Auto (Bld)Ordered By: Willam Martinez on 60-33-9619Wfsvlbwpy/100 WBC (Bld)Automated monocyte %[facility] HospitalMonocytes/100 WBC Manual cnt (Bld)Ordered By: Willam Martinez on 50-92-3004Lqkvrbuby/100 WBC (Bld)Monocytes/100 leukocytes in Blood by Manual count2-11[facility]crest HospitalNeutrophils Auto (Bld) [#/Vol]Ordered By: Willam Martinez on 71-35-0924Goxlgeapilm (Bld) [#/Vol]Neutrophils [#/volume] in Blood by Automated countCleveland Clinic Hillcrest Hospital Neutrophils/100 WBC Auto (Bld)Ordered By: Willam Martinez on 08-29-2024 Neutrophils/100 WBC (Bld)Automated neutrophil %[facility] No Panel InformationOrdered By: Willam Martinez on 72-84-7631Ggywf Membranes Rupture (PAMG-1)NegativeNegativeCleveland Clinic Hillcrest HospitalEstimated GFR (CKD-EPI)> 60.0 mL/MinCleveland Clinic Hillcrest HospitalPharmacy Creatinine Clearance (Gbtv784.71[facility] HospitalNucleated erythrocytes [Presence] in Blood by Automated countOrdered By: Willam Martinez on 08-29-2024 Nucleated RBC Auto Ql (Bld)Nucleated erythrocytes [Presence] in Blood by Automated countCleveland Clinic Hillcrest HospitalPlatelet adequacy [Presence] in Blood by Light microscopyOrdered By: Willam Martinez on 48-85-7838Yleuntifx LM Ql (Bld)Platelet adequacy [Presence] in Blood by Light microscopyNoOhioHealth Nelsonville Health CenterPlatelet mean volume Auto (Bld) [Entitic vol]Ordered By: Willam Martinez on 05-63-8064Uizziadj mean volume (Bld) [Entitic vol]Platelet mean volume [Entitic volume] in Blood by Automated count6.3-10.7FBethesda North HospitalPlatelet morphology finding [Identifier] in BloodOrdered By: Willam Martinez on 80-26-3335Lbkcwnmu morphology finding Nom (Bld)Platelet morphology finding [Identifier] in BloodNoOhioHealth Nelsonville Health Center Platelets Auto (Bld) [#/Vol]Ordered By: Willam Martinez on 35-28-9196Fvkbucoat (Bld) [#/Vol]Platelets [#/volume] in Blood by Automated wwouz261-626SvmtutwgxCleveland Clinic Hillcrest HospitalPotassium [Moles/volume] in Serum or PlasmaOrdered By: Willam Martinez on 34-06-7126Qyuxsjxhi [Moles/Vol]Potassium [Moles/volume] in Serum or Plasma3.5-5.1FBethesda North HospitalRBC Auto (Bld) [#/Vol] Ordered By: Willam Martinez on 48-96-1758XNH (Bld) [#/Vol]Erythrocytes [#/volume] in Blood by Automated count3.60-5.00[facility] Segmented neutrophils/100 WBC Manual cnt (Bld)Ordered By: Willam Martinez on 76-77-1878Qhrufmjrx neutrophils/100 WBC (Bld)Manual blood segmented neutrophils/100 -23FlipkzezcDayton Children's Hospitalerum or plasma anion gap determinationOrdered By: Willam Martinez on 61-96-6763Gtfhq gap [Moles/Vol]Serum or plasma anion gap determination6.0-15.0Dayton Children's Hospitalodium [Moles/volume] in Serum or PlasmaOrdered By: Willam Martinez on 46-09-6992Pnmjuu [Moles/Vol]Sodium [Moles/volume] in Serum or Plasma Cmr382-969YcaptbxcmCleveland Clinic Hillcrest HospitalTrichomonas vaginalis detection by wet preparationOrdered By: Willam Martinez on 08-29-2024T. vaginalis Wet prep Ql (Unsp spec)Trichomonas vaginalis detection by wet preparationCleveland Clinic Hillcrest HospitalUS OB limitedon 78-16-5216MW OB limitedADENA PIKE [place] [address] Ultrasound Report Signed Patient: Shaneka Nugent MR#: [id number] : 2000 Acct:[id number] Age/Sex: 24 / F ADM Date: 08/28/24 Loc: ER Room: Type: [facility] ER Attending Dr: Ordering Provider: Willam Martinez DO Date of Service: 08/29/24 US/US OB limited: green vaginal discharge, 18 weeks preg, abd pain Copies to: Willam Martinez DO US OB limited 08/29/2024 1:01 AM SIGNS AND SYMPTOMS: green vaginal discharge, 18 weeks preg, abd pain COMPARISON: 06/13/2024 TECHNIQUE: Limited pelvic ultrasound using transvesical sonography. FINDINGS: An intrauterine is identified. The visualized fetus has an estimated gestational age of 19 weeks and 0 days . A heart rate is identified at 152 bpm. A normal amount of amniotic fluid is present. There is no evidence for placenta previa or subchorionic hemorrhage. Estimated weight is 0 lbs. 9 oz. Pelvic survey reveals no gross abnormalities. The cervix measures 4 cm in length. US/US OB limited IMPRESSION: Single live IUP with an estimated gestational age of 19w0d weeks/days with an estimated date of delivery of 01/23/2025 and normal heart rate. Impression dictated by: Walker Lieberman M.D.08/29/2024 9:15 AM Dictation Location: [place] [address] Tech: Cheri Umanzor Transcribed By: ARIA 08/29/24 0915 Dictated By: Walker Lieberman II, MD 08/29/24 0914 Signed By: 08/29/24 0915[facility] Medical CenterUrea nitrogen [Mass/volume] in Serum or PlasmaOrdered By: Willam Martinez on 64-34-3810Ckkw nitrogen [Mass/Vol]Urea nitrogen [Mass/volume] in Serum or Plasma01-27[facility] HospitalWBC Auto (Bld) [#/Vol]Ordered By: Willam Martinez on 08-29-2024 WBC (Bld) [#/Vol]Leukocytes [#/volume] in Blood by Automated count3.8-11.6 [facility] HospitalAppearance of UrineOrdered By: PROVIDER TEMP on 84-14-6667Xvsnvpdbiv (U)Urine appearanceAbnormalClearCleveland Clinic Hillcrest HospitalBacteria [Presence] in Urine by AutomatedOrdered By: PROVIDER TEMP on 55-92-0307Vgdxzugl Auto Ql (U)Bacteria [Presence] in Urine by AutomatedParkwood HospitalBilirubin Test strip Ql (U)Ordered By: PROVIDER TEMP on 98-11-7456Lgjrwwlce Ql (U)Bilirubin.total [Presence] in Urine by Test stripNegativeCleveland Clinic Hillcrest HospitalCasts [Presence] in Urine by AutomatedOrdered By: PROVIDER TEMP on 36-36-1158Gfaup Auto Ql (U)Casts [Presence] in Urine by AutomatedParkwood Hospital Color Auto (U)Ordered By: PROVIDER TEMP on 84-35-8655Mciqf (U)Color of Urine by AutoYellowCleveland Clinic Hillcrest HospitalCrystals [Presence] in Urine by AutomatedOrdered By: PROVIDER TEMP on 81-01-2476Cgciadhx Auto Ql (U)Crystals [Presence] in Urine by AutomatedCleveland Clinic Hillcrest HospitalDipstick and Microscopicon 27-07-5422Qgefktihsj (U)CloudyCritically abnormalClearThe [facility] Physician GroupComment on above:Order Comment: Name Collection Type:: VoidedPerformed By: #### ADDONUAPLUS, CUU #### [facility] [address] [place] [address] USABacteria,Urine4+HighNone SeenBroward Health Medical Center Physician Group Comment on above:Order Comment: Name Collection Type:: VoidedPerformed By: #### ADDONUAPLUS, CUU #### [facility] [address] [place] [address] USABilirubin,UrineNegativeNormalNegativeBroward Health Medical Center Physician GroupComment on above:Order Comment: Name Collection Type:: Voided Performed By: #### ADDONUAPLUS, CUU #### [facility] [address] [place] [address] USAColor (U)YellowNormalYellowThe [facility]ician Group Comment on above:Order Comment: Name Collection Type:: VoidedPerformed By: #### ADDONUAPLUS, CUU #### [place] [id number] USAGlucose Ql (U)NormalNormalNormalThBoise Veterans Affairs Medical Center Physician GroupComment on above:Order Comment: Name Collection Type:: VoidedPerformed By: #### ADDONUAPLUS, CUU #### [place] [address] USAHyaline Casts,Hdkka8-0Bxphdb6-8Nfw [facility] Physician GroupComment on above:Order Comment: Name Collection Type:: VoidedPerformed By: #### ADDONUAPLUS, CUU #### [place] [id number] USAKetones Ql (U)TraceHighNegativeThe [facility] Physician GroupComment on above:Order Comment: Name Collection Type:: VoidedPerformed By: #### ADDONUAPLUS, CUU #### [facility] [address] [place], [place] [address] USALeukocyte esterase Test strip Ql (U)NegativeNormalNegative [facility] Physician GroupComment on above:Order Comment: Name Collection Type:: VoidedPerformed By: #### ADDONUAPLUS, CUU #### [place] [id number] USAMucus,Urine3+Critically abnormalThe [facility] Physician GroupComment on above:Order Comment: Name Collection Type:: VoidedPerformed By: #### ADDONUAPLUS, CUU #### [place] [id number] USANitrite,UrineNegativeNormalNegativeThe [facility] Physician GroupComment on above:Order Comment: Name Collection Type:: VoidedPerformed By: #### ADDONUAPLUS, CUU #### [place] [address] USAOccult Blood,UrineNegativeNormalNegativeThe [facility] Physician GroupComment on above:Order Comment: Name Collection Type:: Voided Result Comment: PERFORMED BY: [place] [address] PATHOLOGIST CLOTH BALE HEADER JACKI MINOR M.D.Performed By: #### ADDONUAPLUS, CUU #### [place] [address] USAOthe Crystals,Urine4+NormalThe [facility] Group Comment on above:Order Comment: Name Collection Type:: VoidedPerformed By: #### ADDONUAPLUS, CUU #### [place] [address] USAOther Casts,Urine1-2HighNone SeenThe [facility] Physician GroupComment on above:Order Comment: Name Collection Type:: VoidedPerformed By: #### ADDONUAPLUS, CUU #### [place] [address] USApH (U)6.0 [pH]Normal5.0-9.0The [facility] Physician Group Comment on above:Order Comment: Name Collection Type:: VoidedPerformed By: #### ADDONUAPLUS, CUU #### [place] [address] USAProtein (U) [Mass/Vol]30 mg/dLHighNegativeThe [facility] Physician GroupComment on above:Order Comment: Name Collection Type:: Voided Performed By: #### ADDONUAPLUS, CUU #### [place] [address] USARBC,Wyulo4-1Epycfr9-2Zqm [facility] Physician GroupComment on above:Order Comment: Name Collection Type:: VoidedPerformed By: #### ADDONUAPLUS, CUU #### [place] [address] USASpecificy [place],Urine1.947Gbob2.001-1.030The [facility] Physician GroupComment on above:Order Comment: Name Collection Type:: Voided Performed By: #### ADDTHA, CUU #### [place] [address] USASperm,Nlxks1-8Wqopxo9-5Bxn [facility] Physician Group Comment on above:Order Comment: Name Collection Type:: VoidedResult Comment: PERFORMED BY: [place] [address] PATHOLOGIST CLOTH BALE HEADER JACKI MINOR M.D.Performed By: #### HADLEY, CUU #### [place] [address] USASquamous Epithelial Cell,Oapje8-6Mnoa2-0Pwc [facility] Physician GroupComment on above:Order Comment: Name Collection Type:: Voided Performed By: #### HADLEY, CUU #### [place] [address] USAUrobilinogen,Urine2 mg/dLHighNormalThe [facility] Physician GroupComment on above:Order Comment: Name Collection Type:: VoidedPerformed By: #### HADLEY, CUU #### [place] [address] USAWBC CLUMP, UrineModerateHighNone SeenThe [facility] Physician GroupComment on above:Order Comment: Name Collection Type:: Voided Performed By: #### ADDQUINNPLUS, CUU #### [place] [address] USAWBC,Btkrk48-08Fchl8-2Wki [facility] Physician GroupComment on above:Order Comment: Name Collection Type:: VoidedPerformed By: #### ADDTRISTANUAPLUS, CUU #### [place] [address] USAEpithelial cells.squamous [#/area] in Urine sediment by Automated countOrdered By: PROVIDER TEMP on 24-01-4620Gkjujzhtxa cells.squamous Auto (Urine sed) [#/Area]Epithelial cells.squamous [#/area] in Urine sediment by Automated countTeays Valley Cancer Center02FBethesda North HospitalErythrocytes [#/area] in Urine sediment by Automated countOrdered By: PROVIDER TEMP on 80-14-2504OSS Auto (Urine sed) [#/Area]Erythrocytes [#/area] in Urine sediment by Automated count04FBethesda North HospitalGlucose [Mass/volume] in Urine by Test stripOrdered By: PROVIDER TEMP on 32-24-8117Japehjf Test strip (U) [Mass/Vol] Glucose [Mass/volume] in Urine by Test stripOhioHealth Grant Medical CenterHemoglobin Test strip Ql (U)Ordered By: PROVIDER TEMP on 08-28-2024 Hemoglobin Ql (U)Hemoglobin [Presence] in Urine by Test stripNegKindred Hospital LimaHyaline casts [#/area] in Urine sediment by Automated countOrdered By: PROVIDER TEMP on 41-90-1424Dvelnui casts Auto (Urine sed) [#/Area]Hyaline casts [#/area] in Urine sediment by Automated count0-[address] [place], [place] [address]Ketones Test strip Ql (U)Ordered By: PROVIDER TEMP on 42-61-6166Uvghztc Ql (U)Ketones [Presence] in Urine by Test stripTeays Valley Cancer CenterNegChildren's Hospital for RehabilitationLeukocyte clumps [Presence] in Urine by AutomatedOrdered By: PROVIDER TEMP on 11-98-9049Lsptylkcy clumps Auto Ql (U) Leukocyte clumps [Presence] in Urine by AutomatedParkwood HospitalLeukocyte esterase [Presence] in Urine by Test stripOrdered By: PROVIDER TEMP on 15-51-0063Txlcfihwx esterase Test strip Ql (U)Leukocyte esterase [Presence] in Urine by Test stripNegKindred Hospital LimaLeukocytes [#/area] in Urine sediment by Automated countOrdered By: PROVIDER TEMP on 24-13-2232DOD Auto (Urine sed) [#/Area]Leukocytes [#/area] in Urine sediment by Automated countTeays Valley Cancer Center04FBethesda North HospitalMucus [Presence] in Urine by AutomatedOrdered By: PROVIDER TEMP on 87-01-8178Jsyly Auto Ql (U)Mucus [Presence] in Urine by AutomatedAbMemorial Health System Selby General HospitalNitrite Test strip Ql (U)Ordered By: PROVIDER TEMP on 08-28-2024 Nitrite Ql (U)Nitrite [Presence] in Urine by Test stripNegKindred Hospital LimaProtein Test strip (U) [Mass/Vol]Ordered By: PROVIDER TEMP on 69-97-4411Ihknaok (U) [Mass/Vol]Protein [Mass/volume] in Urine by Test stripHighNegProtestant Deaconess Hospitalpecific gravity Test strip (U) [Rel density]Ordered By: PROVIDER TEMP on 33-02-2637Uxtiazib gravity (U) [Rel density]Specific gravity of Urine by Test stripHigh1.001-1.030Dayton Children's Hospitalpermatozoa [#/area] in Urine sediment by Automated count Ordered By: PROVIDER TEMP on 28-85-5559Smqjtosjosv Auto (Urine sed) [#/Area] Spermatozoa [#/area] in Urine sediment by Automated count0-2FBethesda North HospitalUrobilinogen Test strip (U) [Mass/Vol]Ordered By: PROVIDER TEMP on 82-14-4010Xivoaunprcxb (U) [Mass/Vol]Urobilinogen [Mass/volume] in Urine by Test stripMercy Health Kings Mills HospitalpH Test strip (U)Ordered By: PROVIDER TEM on 48-14-4853fV (U)pH of Urine by Test strip5.0-9.0[facility] HospitalLaboratory - Cytologyon 02-23-4047Dvzhijdccq Cyto stain Nom (Cvx/Vag) [ID]CommentNOAL HealthcareComment on above:Asia Meraz, Braid Folder (ASCP)Cytology report Cyto stain Doc (Cvx/Vag)CommentNOAL HealthcareComment on above:NEGATIVE FOR INTRAEPITHELIAL LESION OR MALIGNANCY. Cytology report Cyto stain.thin prep Doc (Cvx/Vag)CommentNOAL HealthcareComment on above:This liquid based ThinPrep(R) pap test was screened with the use of an image guided system. Statement of adequacy Cyto stain (Cvx/Vag) [Interp]CommentNOAL HealthcareComment on above:Satisfactory for evaluation. Endocervical and/or squamous metaplastic cells (endocervical component) are present. Laboratory - Microbiology and Antimicrobial susceptibilityon 63-35-0941MVT 16+18+31+33+35+39+45+51+52+56+58+59+66+68 DNA Probe+sig amp Ql (Cvx)Negative NegativeNOAL HealthcareComment on above:This nucleic acid amplification test detects fourteen high-risk HPV types (16,18,31,33,35,39,45,51,52,56,58,59,66,68) without differentiation. Microscopic observation Other stain Nom (Unsp spec).NOMS HealthcareNo Panel Informationon 57-24-5621Bindvebsr ICD code [Identifier]CommentNOBarnes-[facility] Comment on above:R87.612 Z12.4 Note:CommentNOBarnes-Jewish Saint Peters HospitalComment on above:The Pap smear is a screening test designed to aid in the detection of premalignant and malignant conditions of the uterine cervix. It is not a diagnostic procedure and should not be used as the sole means of detecting cervical cancer. Both false-positive and false-negative reports do occur. Performed at: 01 - [address] [id number] Psychiatric Social Worker Supervisor: Alba Bahena MD, Phone: [phone] Performed at: 02 - [address] [id number] Psychiatric Social Worker Supervisor: Alba Bahena MD, Phone: [phone] Specimen Comment: No. of containers..01 ThinPrep VialLABPelham Medical Center Laboratory - Specimen informationon 60-46-3249Tispcexd type Nom (Spec)swabThree Rivers HealthcareNo Panel Informationon 00-58-2718XXNIUZWNOHG DNA(PCR)NegativeNegatvie [facility] HealthcareInterpretation and review of laboratory resultsNormWilkes-Barre General [facility] HealthcareUrinalysis macro (dipstick) panel (U)Ordered By: Winifred Reyes on 13-11-1797Yregxizcy, UANegativeNegative - 4(70) +++ mg/dLNOAL HealthcareBlood, UANegativeNegative - 50 Reji/mcLNOAL HealthcareClarity, UAClear [facility] HealthcareColor, UAYellowNOAL HealthcareGlucose, UANegativeNegative - 2000(110) ++++ mg/dLCEDAR CITY HOSPITAL HealthcareInterpretation and review of laboratory resultsNormalNOMS HealthcareKetones, UANegativeNegative - 160(16) ++++ mg/dLNOMS HealthcareLeukocytes, UANegativeNegative - 500+++ Sal/mcLNOMS Healthcare Nitrite, UANegativeNegative - PositiveNOMS HealthcarepH, UA75 - 9N[facility]S Healthcare Protein, UANegativeNegative - 2000(20) ++++ mg/dLNOMS HealthcareSpec Grav, UA 1.0151 - 1.03NOMS HealthcareUrobilinogen, UA1.00.2 - 12 mg/dLNOMS HealthcareNOMS HealthcareUS OB <= 14 weeks fetuson 85-46-3673TR OB <= 14 weeks [facility] [place] [address] [place] [address] Ultrasound Report Signed Patient: Shaneka Nugent MR#: [id number] : 2000 Acct:[id number] Age/Sex: 23 / F ADM Date: 06/13/24 Loc: Room: Type: [facility] Attending Dr: Megan Walker MD Ordering Provider: GAYATRI Leger Date of Service: 06/13/24 US/US OB <= 14 weeks fetus: Z34.01 Copies to: GAYATRI Leger OB ultrasound. Reason for exam:Dating ultrasound Comparison:None Technique: Transabdominal imaging of the gravid uterus was obtained. Findings: Single live intrauterine measuring 7 weeks 1 day by CRL KAPIL 01/29/2025. heart rate 156 bpm. Small subchorionic hemorrhage is noted. Normal ovaries. No free fluid. US/US OB <= 14 weeks fetus Impression: Single live intrauterine 7 weeks 1 day by CRL, KAPIL 01/29/2025. Impression dictated by: Fabian Wakefield Jr., D.OMoira06/13/2024 3:36 PM Dictation Location: [facility] Tech: Courtney Ulloa Transcribed By: ARIA 06/13/24 1536 Dictated By: Fabian Wakefield Jr, DO 06/13/24 1535 Signed By: 06/13/24 1536[facility] Physician GroupCT ADRENAL/PELVIS WO/W IVCONon 18-99-2905VE ADRENAL/PELVIS WO/W IVCON* * *Final Report* * * DATE OF EXAM: Feb 16 2024 8:25AM [facility] 0537 - CT ADRENAL/PELVIS WO/W IVCON / PROCEDURE REASON: Elevated testosterone level * * * * Physician Interpretation * * * * EXAMINATION: CT ABDOMEN / ADRENAL GLANDS WITHOUT AND WITH IV CONTRAST CT PELVIS WITH CONTRAST CLINICAL HISTORY: Elevated testosterone TECHNIQUE: Thin section spiral imaging through the adrenal glands was performed without and with contrast using washout technique. Venous phase imaging was continued through the pelvis. Oral contrast is not administered per protocol. M: CTAdPW_2 Contrast: IV: 150 ml of Omnipaque 300 Oral Contrast: None CT Radiation dose: Integrated dose-length product (DLP) for this visit = 2860.58 mGy*cm. CT Dose Reduction Employed: Automated exposure control(AEC) and iterative recon COMPARISON: None. RESULT: Adrenal glands: Right adrenal gland: No nodules, masses or thickening. Left adrenal gland: No nodules, masses or thickening. Abdomen / Pelvis: Liver: No mass. Diffuse hypoenhancement of the liver compared to the spleen suggesting steatosis. Biliary System: No bile duct dilation. Spleen: No mass. No splenomegaly. Pancreas: No mass or duct dilation. Kidneys: Symmetric nephrograms. No hydronephrosis or nephrolithiasis. GI Tract: No dilation or wall thickening. Appendix is normal. Lymph Nodes: Several small lymph nodes present. The bowel mesentery and a few mildly prominent lymph nodes in the mesentery right lower quadrant measuring up to 1.0 cm, nonspecific. No retroperitoneal lymphadenopathy. Mesentery/Peritoneum: No ascites or mass. Vasculature: - Abdominal aorta and iliac arteries: Patent, no aneurysm. - Celiac and SMA: Patent - Portal venous system (SMV, splenic vein, portal vein and branches): Patent. - Hepatic veins: Patent. - Other: None Pelvis: No mass, ascites or fluid collection. A 1.4 cm enhancing lesion in the right adnexa likely represents a dominant follicle. Uterus and adnexa are unremarkable. Bones/Soft Tissues: No significant finding. A 0.3 cm sclerotic focus in the right pubic symphysis. The central pulmonary nodule. Lower Thorax: No consolidation or pleural effusion. Sulphate Tester (topogram) images: No additional findings. IMPRESSION: No adrenal lesion. Hepatic steatosis. No acute intra-abdominal or pelvic findings. Map Maker: RUDI Transcribe Date/Time: Feb 18 2024 1:21P Dictated by : JENARO BILLINGSLEY MD This examination was interpreted and the report reviewed and electronically signed by: JENARO BILLINGSLEY MD on Feb 18 2024 1:29PM EST [id number] Light Mayo HospitalNo Panel Information Ordered By: Radiologist Radiology on 12-29-9149WG[facility] Work Phone: No Panel Informationon 58-63-7786Wmniumsub Study observation (narrative)NOMS HealthcareUS PELVIS TRANSVAGINALon 08-71-8999[place]wx[place] [id number] Ultrasound Report Signed Patient: SHANEKA NUGENT MR#: [id number] : 2000 Acct:[id number] Age/Sex: 23 / F ADM Date: 09/08/23 Loc: RAD Attending Dr: Deborah Read M.D. Ordering Physician: Deborah Read Date of Service: 09/08/23 Procedure(s): US pelvis transvaginal Accession Number(s): [id number] cc: Ying Reid COAL BRIQUETTE MACHINE OPERATOR; Deborah Read [address] [address] Patient Name: SHANEKA NUGENT MRN: [id number] date: 2000 Sex: F Assigned Patient Location: [facility] Current Patient Location: RAD Accession/Order Number: [id number] Exam Date: 09/08/2023 13:00 Report Date: 09/08/2023 13:53 At the request of: DEBORAH READ Procedure: US pelvis transvaginal EXAMINATION: US pelvis transvaginal, US vas organ single comp HISTORY: Ovarian Cyst COMPARISON: No relevant comparison available. FINDINGS: The uterus is normal in size, contour and echotexture measuring 7.9 x 4.9 x 3.0 cm. Normal color Doppler flow. The uterus is anteflexed. Endometrium measures 6.8 mm, normal. The right ovary is normal measuring 3.0 x 2.1 1.8 cm. Normal color and Doppler flow. Multiple peripheral subcentimeter follicles The left ovary is normal in size, contour and echotexture measuring 2.7 x 1.8 x 1.4 cm. Normal color Doppler flow. Multiple peripheral subcentimeter follicles No free fluid US/US pelvis transvaginal IMPRESSION: Bilateral peripheral subcentimeter follicles, consider polycystic ovarian morphology Electronically authenticated by: PRAVIN RANDOLPH Date: 09/08/2023 13:53 Dictated By: Pravin Randolph M.D. Signed By: 09/08/23 1355 DD/ 1358 TD/TT: Map Maker:TBHRadiology, Radiologist, - 09/08/2023 [place] [address] Ultrasound Report Signed Patient: SHANEKA NUGENT MR#: [id number] : 2000 Acct:[id number] Age/Sex: 23 / F ADM Date: 09/08/23 Loc: RAD Attending Dr: Deborah Read M.D. Ordering Physician: Deborah Read Date of Service: 09/08/23 Procedure(s): US pelvis transvaginal Accession Number(s): [id number] cc: Ying Redi NP; Deborah Read [place] [id number] Patient Name: SHANEKA NUGENT MRN: [id number] date: 2000 Sex: F Assigned Patient Location: [facility] Current Patient Location: [facility] Accession/Order Number: [id number] Exam Date: 09/08/2023 13:00 Report Date: 09/08/2023 13:53 At the request of: DEBORAH READ Procedure: US pelvis transvaginal EXAMINATION: US pelvis transvaginal, US vas organ single comp HISTORY: Ovarian Cyst COMPARISON: No relevant comparison available. FINDINGS: The uterus is normal in size, contour and echotexture measuring 7.9 x 4.9 x 3.0 cm. Normal color Doppler flow. The uterus is anteflexed. Endometrium measures 6.8 mm, normal. The right ovary is normal measuring 3.0 x 2.1 1.8 cm. Normal color and Doppler flow. Multiple peripheral subcentimeter follicles The left ovary is normal in size, contour and echotexture measuring 2.7 x 1.8 x 1.4 cm. Normal color Doppler flow. Multiple peripheral subcentimeter follicles No free fluid US/US pelvis transvaginal IMPRESSION: Bilateral peripheral subcentimeter follicles, consider polycystic ovarian morphology Electronically authenticated by: PRAVIN RANDOLPH Date: 09/08/2023 13:53 Dictated By: Pravin Randolph M.D. Signed By: 09/08/23 1353 DD/ 1353 TD/TT: Map Maker: RANDA Jarrett Pelvis transvaginalon 38-11-6174[place] [address] Ultrasound Report Signed Patient: SHANEKA NUGENT MR#: [id number] : 2000 Acct:[id number] Age/Sex: 23 / F ADM Date: 09/08/23 Loc: RAD Attending Dr: Deborah Read M.D. Ordering Physician: Deborah Read Date of Service: 09/08/23 Procedure(s): US vas organ single comp Accession Number(s): [id number] cc: Ying Reid NP; Deborah Read [address] [address] Patient Name: SHANEKA NUGENT MRN: [id number] date: 2000 Sex: F Assigned Patient Location: [facility] Current Patient Location: [facility] Accession/Order Number: [id number] Exam Date: 09/08/2023 13:00 Report Date: 09/08/2023 13:53 At the request of: DEBORAH READ Procedure: US vas organ single comp EXAMINATION: US pelvis transvaginal, US vas organ single comp HISTORY: Ovarian Cyst COMPARISON: No relevant comparison available. FINDINGS: The uterus is normal in size, contour and echotexture measuring 7.9 x 4.9 x 3.0 cm. Normal color Doppler flow. The uterus is anteflexed. Endometrium measures 6.8 mm, normal. The right ovary is normal measuring 3.0 x 2.1 1.8 cm. Normal color and Doppler flow. Multiple peripheral subcentimeter follicles The left ovary is normal in size, contour and echotexture measuring 2.7 x 1.8 x 1.4 cm. Normal color Doppler flow. Multiple peripheral subcentimeter follicles No free fluid US/US vas organ single comp IMPRESSION: Bilateral peripheral subcentimeter follicles, consider polycystic ovarian morphology Electronically authenticated by: PRAVIN RANDOLPH Date: 09/08/2023 13:53 Dictated By: Pravin Randolph M.D. Signed By: 09/08/23 1268 DD/ 1043 TD/TT: Map Maker:TBHRadiology, Radiologist, MD - 09/09/2023 [place] [address] Ultrasound Report Signed Patient: SHANEKA NUGENT MR#: [id number] : 2000 Acct:[id number] Age/Sex: 23 / F ADM Date: 09/08/23 Loc: RAD Attending Dr: Deborah Read M.D. Ordering Physician: Deborah Read Date of Service: 09/08/23 Procedure(s): US vas organ single comp Accession Number(s): [id number] cc: Ying Reid COAL BRIQUETTE MACHINE OPERATOR; Deborah Read The [address] [address] Patient Name: SHANEKA NUGENT MRN: [id number] date: 2000 Sex: F Assigned Patient Location: [facility] Current Patient Location: [facility] Accession/Order Number: [id number] Exam Date: 09/08/2023 13:00 Report Date: 09/08/2023 13:53 At the request of: DEBORAH READ Procedure: US vas organ single comp EXAMINATION: US pelvis transvaginal, US vas organ single comp HISTORY: Ovarian Cyst COMPARISON: No relevant comparison available. FINDINGS: The uterus is normal in size, contour and echotexture measuring 7.9 x 4.9 x 3.0 cm. Normal color Doppler flow. The uterus is anteflexed. Endometrium measures 6.8 mm, normal. The right ovary is normal measuring 3.0 x 2.1 1.8 cm. Normal color and Doppler flow. Multiple peripheral subcentimeter follicles The left ovary is normal in size, contour and echotexture measuring 2.7 x 1.8 x 1.4 cm. Normal color Doppler flow. Multiple peripheral subcentimeter follicles No free fluid US/US vas organ single comp IMPRESSION: Bilateral peripheral subcentimeter follicles, consider polycystic ovarian morphology Electronically authenticated by: PRAVIN RANDOLPH Date: 09/08/2023 13:53 Dictated By: Pravin Randolph M.D. Signed By: 09/08/23 9304 DD/ 1352 TD/TT: Map Maker: RANDA HealthcareCOVID Quick Testingon 92-98-5728DewykaAltpzvzfTfvqc [place] [employer] Other Quick Fluon 88-10-3835EFPQX Ab CF (S) [Titer]Negative [place] [employer] Other FLUBV Ab CF (S) [Titer]NegativeSiletz [employer] Other COVID Quick Testingon 32-14-4894MmwrbnIhjtlzyrOvpkm [employer] Other COVID Quick Testingon 75-10-9814KnzcpqVvfzympiAcucb [employer] Other Vital Signs Date TimeVital SignValuePerforming IvptgctyeVlzwlmsu24-18-9670 15:42-0400Body mhblum564.48 cmLisa Aichholz COAL BRIQUETTE MACHINE OPERATOR-C Work Phone: [facility]10-16-2025 15:42-0400 Body mass index (BMI) [Ratio]41.3 kg/m2Lisa Aichholz CO[employer]QUET[employer] MACHINE OPERATOR-C Work Phone: [facility]10-16-2025 15:42-0400 Body vhtihmfcrpu18.1 [degF]Ying Larahholz CO[employer] B[employer]QUETTE MACHINE OPERATOR-C Work Phone: [facility]10-16-2025 15:42-0400 Body hnzihj548.51 kgLisa Larahholz CO[employer] BRIQUETTE MACHINE OPERATOR-C Work Phone: [facility]10-16-2025 15:42-0400 Diastolic blood cpmqxhev78 mm[Hg]Ying Aichholz COAL BRIQUETTE MACHINE OPERATOR-C Work Phone: 1(590)[address]10-16-2025 15:42-0400 Heart khhl715 /minLisa Aichholz CO[employer]QUETTE MACHINE OPERATOR-C Work Phone: 1(410)[address]10-16-2025 15:42-0400 Respiratory rate18 /minLisa Aichholz COAL BRIQUETTE MACHINE OPERATOR-C Work Phone: [phone])[address]10-16-2025 15:42-0400 SaO2% (BldA) [Mass fraction]99 %Ying Aichholz [employer]QUETTE MACHINE OPERATOR-C Work Phone: 1(228)[address]10-16-2025 15:42-0400 Systolic blood xucnzqsd334 mm[Hg]Ying Aichholz CO[employer] B[employer]QUETTE MACHINE OPERATOR-C Work Phone: 1(484)[address]10-14-2025 16:12-0400 Body fndejv590.48 cmLisa Aichholz CO[employer] BRIQUETTE MACHINE OPERATOR-C Work Phone: 1(375)[address]10-14-2025 16:12-0400 Body mass index (BMI) [Ratio]41.1 kg/m2Lisa Aichholz CO[employer] B[employer]QUETTE MACHINE OPERATOR-C Work Phone: 1(256)[address]10-14-2025 16:12-0400 Body jekpfprohuq70.5 [degF]Ying Aichholz CO[employer] BRIQUETTE MACHINE OPERATOR-C Work Phone: 1(290)[address]10-14-2025 16:12-0400 Body .05 kgLisa Aichholz CO[employer] B[employer]QUETTE MACHINE OPERATOR-C Work Phone: 1(258)726-[address] [place], [place] 4655010-14-2025 16:12-0400 Diastolic blood wzdiaicl39 mm[Hg]Ying Aichholz COAL BRIQUETTE MACHINE OPERATOR-C Work Phone: 1(396)009-[address] [place], [place] 4655010-14-2025 16:12-0400 Heart rate84 /minLisa Aichholz COAL BRIQUETTE MACHINE OPERATOR-C Work Phone: [facility]10-14-2025 16:12-0400 Respiratory rate18 /Melissa Reid COAL BRIQUETTE MACHINE OPERATOR-C Work Phone: [facility]10-14-2025 16:12-0400 SaO2% (BldA) [Mass fraction]99 %Ying Reid COAL BRIQUETTE MACHINE OPERATOR-C Work Phone: [facility]10-14-2025 16:12-0400 Systolic blood mm[Hg]Ying Reid [employer] BRIQUETTE MACHINE OPERATOR-C Work Phone: [facility]09-17-2025 18:08-0400 Body puggtb856.94 cmC[facility]09-17-2025 18:08-0400Body mass index (BMI) [Ratio]42.7 kg/y5WgdiuaxvjC[facility] Clinic [facility]09-17-2025 18:08-0400Body beajcbocfgg79.1 [degF][facility]09-17-2025 18:08-0400Body .62 kgC[facility]09-17-2025 18:08-0400Diastolic blood flrwexun72 mm[Hg][facility] 03-22-2025 18:08-0400Heart rate99 /[facility] 03-22-2025 18:08-0400Respiratory rate18 /[facility] 03-22-2025 18:08-1398RcU3% (BldA) [Mass fraction]99 %[facility]09-17-2025 18:08-0400Systolic blood knjbxaii399 mm[Hg][facility]08-27-2025 13:57-0400Body mass index (BMI) [Ratio]39.48 kg/m2 Carole Gaston MD Work Phone: [facility]08-27-2025 13:57-0400Body .2 kgCarole Gaston MD Work Phone: [facility]08-27-2025 13:57-0400Diastolic blood whpfafxc50 mm[Hg]Carole Gaston MD Work Phone: [facility]08-27-2025 13:57-0400Heart iojb372 /minCarole Gaston MD Work Phone: [facility]08-27-2025 13:57-0400Systolic blood phtaiqso166 mm[Hg]Carole Gaston MD Work Phone: [facility]08-12-2025 10:32-0400Body mass index (BMI) [Ratio]36.95 kg/p7KaqyyuMegan Walker MD Work Phone: [place] [address]Wosgsxmnxl28-64-1225 10:32-0400Body nycnyr17.63 kgMegan Walker MD Work Phone: [place] [address]Asbwlekpwe23-53-8326 10:32-0400Diastolic blood yqhypoek29 mm[Hg]Megan Walker MD Work Phone: [place] [address]Mmnxpzzzyc54-26-0704 10:32-0400Systolic blood buxchrif560 mm[Hg]Megan Walker MD Work Phone: [place] [address]Dtlmfuuswa61-88-4642 16:46-0400Body mass index (BMI) [Ratio]40.57 kg/m2Ying Reid COAL BRIQUETTE MACHINE OPERATOR Work Phone: [facility]Tzomheufpb09-89-3859 16:46-0400Body temperature 98.6 [degF]Ying Reid COAL BRIQUETTE MACHINE OPERATOR Work Phone: [place] [address]Zpxbrdxhpu86-97-3425 16:46-0400Body xorgcz961.61 kgYing Reid COAL BRIQUETTE MACHINE OPERATOR Work Phone: [place] [address]Bzmgdxggaa17-02-4351 16:46-0400Diastolic blood wzgwfaqa99 mm[Hg]Ying Reid COAL BRIQUETTE MACHINE OPERATOR Work Phone: [place] [address]Khygsuksbi43-85-6681 16:46-0400Heart rate94 /min Ying Reid COAL BRIQUETTE MACHINE OPERATOR Work Phone: [facility] HealthcareEmihvablhi86-31-9996 16:46-0400Respiratory rate18 /minLisa Aichholz COAL BRIQUETTE MACHINE OPERATOR Work Phone: [phone] HealthcareWqqwtubmoc30-83-4413 16:46-3082KoB0% (BldA) [Mass fraction]96 %Ying Aichholz COAL BRIQUETTE MACHINE OPERATOR Work Phone: [facility] HealthcareAzvxvjlsrg42-42-8291 16:46-0400Systolic blood ntainjin238 mm[Hg]Ying Aichholz COAL BRIQUETTE MACHINE OPERATOR Work Phone: [phone] HealthcareCznpmaamhx60-21-2307 10:53-0400Body ilulyp507.94 cmLisa Aichholz Work Phone: 1(295)[address]08-01-2025 10:53-0400 Body mass index (BMI) [Ratio]41.1 kg/m2Lisa Aichholz Work Phone: 1(532)[address]08-01-2025 10:53-0400 Body wdcrmgqskyk21 [degF]Ying Aichholz Work Phone: 1(317)[address]08-01-2025 10:53-0400 Body kkhkij91.88 kgLisa Aichholz Work Phone: 1(306)[address]08-01-2025 10:53-0400 Diastolic blood lfbydzlt79 mm[Hg]Ying Aichholz Work Phone: 1(242)0-[address] [place], [place] 465[address]8-01-2025 10:53-0400 Heart rate80 /minLisa Aichholz Work Phone: 1(311)[address]08-01-2025 10:53-0400 Respiratory rate18 /minLisa Aichholz Work Phone: 1(201)[address]08-01-2025 10:53-0400 SaO2% (BldA) [Mass fraction]98 %Ying Aichholz Work Phone: 1(197)[address]08-01-2025 10:53-0400 Systolic blood zuzdmyjm053 mm[Hg]Ying Aichholz Work Phone: 1(751)629-[address] [place], [place] 4655007-01-2025 09:07-0400 Body xarvotrbben58 [degF]Ying Aichholz Work Phone: 1(861)[address]07-01-2025 09:07-0400 Diastolic blood okjixaeh40 mm[Hg]Ying Aichholz Work Phone: 1(110)[address]07-01-2025 09:07-0400 Heart rate83 /minLisa Aichholz Work Phone: 1(801)[address]07-01-2025 09:07-0400 Respiratory rate18 /minLisa Aichholz Work Phone: 1(473)[address]07-01-2025 09:07-0400 SaO2% (BldA) [Mass fraction]99 %Ying Aichholz Work Phone: 1(893)[address]07-01-2025 09:07-0400 Systolic blood iyrkzvrg162 mm[Hg]Ying Aichholz Work Phone: 1(257)508-[facility]2025 10:25-0400 Body yqbisc773.48 cmLisa Aichholz Work Phone: [facility]2025 10:25-0400 Body obkqef593.77 kgLisa Aichholz Work Phone: 1(636)[address]06-24-2025 13:13-0400 Diastolic blood vdymfuss63 mm[Hg]Ying Aichholz Work Phone: 1(906)981-[facility]06-24-2025 13:13-0400 Systolic blood wtuilmxk348 mm[Hg]Ying Aichholz Work Phone: [facility]06-24-2025 12:30-0400 Body njxovm189.48 cmLisa Aichholz Work Phone: [facility]06-24-2025 12:30-0400 Body awgzzi724.59 kgLisa Aichholz Work Phone: 1(274)345-[address] [place], [place] [address]6-24-2025 11:33-0400 Body mass index (BMI) [Ratio]43.06 kg/p2EyblkrMegan Walker MD Work Phone: [facility] HealthcareCclhzaxhhk91-52-0766 11:33-0400Body .78 kgMegan Walker MD Work Phone: [facility] HealthcareNrtrafblua78-25-4179 11:33-0400Diastolic blood rnhrsyat18 mm[Hg]Megan Walker MD Work Phone: [facility] HealthcareQljuuotveg90-83-2395 11:33-0400Systolic blood tbauqrky274 mm[Hg]Megan Walker MD Work Phone: [facility] HealthcareSyhjwfuauz22-83-7179 20:33-0400Diastolic blood qgwpbuye59 mm[Hg]Ying Aichholz Work Phone: 1(216)[address]06-19-2025 20:33-0400 Heart wpsz489 /minLisa Aichholz Work Phone: 3(275)873-[address] [place], [place] 465[address]6-19-2025 20:33-0400 Respiratory rate16 /minLisa Aichholz Work Phone: 1(037)594-[address] [place], [place] 5312806-19-2025 20:33-0400 Systolic blood yclxktxe149 mm[Hg]Ying Aichholz Work Phone: 1(432)852-[address] [place], [place] 4655006-19-2025 20:20-0400 Body .48 cmLisa Aichholz Work Phone: 4(253)708-[address] [place], [place] 4655006-19-2025 20:20-0400 Body mvdwey666.77 kgLisa Aichholz Work Phone: 0(964)226-[facility]06-19-2025 19:59-0400 Body jwbxdbookbk16.9 [degF]Ying Aichholz Work Phone: [facility]06-19-2025 19:59-0400 SaO2% (BldA) [Mass fraction]99 %Ying Aichholz Work Phone: 1(869)842-[address] [place], [place] 465[address]6-16-2025 13:50-0400 Diastolic blood sdxscimv76 mm[Hg]Ying Aichholz Work Phone: 1(215)021-[address] [place], [place] 465[address]6-16-2025 13:50-0400 Heart rate96 /minLisa Aichholz Work Phone: 1(629)160-[address] [place], [place] 465[address]6-16-2025 13:50-0400 Respiratory rate16 /minLisa Aichholz Work Phone: 1(355)251-[address] [place], [place] 465[address]6-16-2025 13:50-0400 Systolic blood qihdgvxp653 mm[Hg]Ying Aichholz Work Phone: 1(919)909-[address] [place], [place] 4655006-16-2025 13:26-0400 SaO2% (BldA) [Mass fraction]98 %Ying Larahholz Work Phone: 1(586)867-[address] [place], [place] 465[address]6-16-2025 13:25-0400 Body eedhvjvefye14.5 [degF]Ying Larahholz Work Phone: 1(906)[address]06-16-2025 13:21-0400 Body .48 cmLisa Christopherholz Work Phone: 1(971)346-[address] [place], [place] 465[address]6-16-2025 13:21-0400 Body ficuzy693.77 kgLisa Larahholz Work Phone: 1(266)144-[address] [place], [place] 465[address]6-16-2025 11:15-0400 Body mass index (BMI) [Ratio]42.25 kg/n0ObwzuqMegan Walker MD Work Phone: [facility] HealthcarePbvjzniurn02-00-0422 11:15-0400Body guvipw881.78 kgMegan Walker MD Work Phone: [facility] HealthcareRdzfntoeue71-47-8440 11:15-0400Diastolic blood bbggedcw38 mm[Hg]Megan Walker MD Work Phone: [facility] HealthcareNyulyywwio79-07-3658 11:15-0400Systolic blood mm[Hg]Megan Walker MD Work Phone: [facility] HealthcareTwmrgwrwym96-84-1800 18:48-0400Respiratory rate18 /minLisa Aichholz Work Phone: 1(722)712-[address] [place], [place] 465[address]6-12-2025 17:00-0400 Diastolic blood xzszhidr32 mm[Hg]Ying Aichholz Work Phone: 1(347)[address]06-12-2025 17:00-0400 Heart rate92 /minLisa Aichholz Work Phone: 1(430)[address]06-12-2025 17:00-0400 SaO2% (BldA) [Mass fraction]98 %Ying Aichholz Work Phone: 1(316)495-[address] [place], [place] [address]6-12-2025 17:00-0400 Systolic blood otdnmpyc886 mm[Hg]Ying Aichholz Work Phone: 1(355)355-[address] [place], [place] 465[address]6-12-2025 15:00-0400 Body qlpoyucwoeo74.1 [degF]Ying Aichholz Work Phone: 1(704)[address]06-12-2025 14:35-0400 Body .48 cmLisa Aichholz Work Phone: 1(828)209-[address] [place], [place] 4655006-12-2025 14:35-0400 Body llfucu219.77 kgLisa Aichholz Work Phone: 1(904)790-[address] [place], [place] 4655006-09-2025 14:13-0400 Body mass index (BMI) [Ratio]42.25 kg/b8VtswljMegan Walker MD Work Phone: [facility] HealthcareUksnlydtzy74-43-2969 14:13-0400Body sijhax438.78 kgMegan Walker MD Work Phone: 1(419)625-[address] [place], [place] [address]Tdfskcgttg48-54-4421 14:13-0400Diastolic blood eshsknyq11 mm[Hg]Megan Walker MD Work Phone: 1(051)185-[facility] HealthcarePowoaohkcz01-36-3612 14:13-0400Systolic blood nowniwwn878 mm[Hg]Megan Walker MD Work Phone: 1(227)[facility] HealthcareAjgmdfqaxm31-99-6131 12:47-0400Body mass index (BMI) [Ratio]42.07 kg/s8MjkycvMegan Walker MD Work Phone: 1(497)[facility] [place], [place] [address]Zkxtgkaltz27-26-7350 12:47-0400Body zhhiul724.33 kgMegan Walker MD Work Phone: 1(752)[facility] [place], [place] [address]Bgmocvhzmq45-60-4156 12:47-0400Diastolic blood ddwowhgw59 mm[Hg]Megan Walker MD Work Phone: 1(121)522-[facility] HealthcareMvkhtducya01-91-1436 12:47-0400Systolic blood fyqwtkoy361 mm[Hg]Megan Walker MD Work Phone: 1(163)[facility] [place], [place] [address]Jgcyeilkhb52-78-5716 02:37-0400Diastolic blood sttefztk67 mm[Hg]Ying Jeanette Work Phone: 1(310)463-[address] [place], [place] 4655005-20-2025 02:37-0400 Heart rate87 /minLisa Aichholz Work Phone: 1(423)696-[address] [place], [place] 4655005-20-2025 02:37-0400 Respiratory rate15 /minLisa Aichholz Work Phone: 1(302)504-[address] [place], [place] 4655005-20-2025 02:37-0400 Systolic blood mrajmetq333 mm[Hg]Ying Aichholz Work Phone: 1(781)301-[address] [place], [place] 4655005-20-2025 00:48-0400 Body bzqgwftgdru97.9 [degF]Ying Larahholz Work Phone: 1(467)764-[address] [place], [place] 4655005-20-2025 00:48-0400 SaO2% (BldA) [Mass fraction]98 %Ying Larahholmeagan Work Phone: [facility]05-12-2025 12:43-0400 Body mass index (BMI) [Ratio]41.88 kg/c5NdfeveMegan Walker MD Work Phone: [facility] HealthcareQlfbyxwuuy16-34-3168 12:43-0400Body .87 kgMegan Walker MD Work Phone: [facility] HealthcareOamylkfwau34-90-0278 12:43-0400Diastolic blood vzlgcuxg41 mm[Hg]Megan Walker MD Work Phone: [facility] HealthcareJwznfouisa37-94-1486 12:43-0400Systolic blood idaszqia107 mm[Hg]Megan Walker MD Work Phone: [facility] HealthcarePxnvxdehfu40-91-2549 15:02-0400Body .1 Pinky Amos MD Work Phone: [facility]04-14-2025 15:02-0400Body mass index (BMI) [Ratio]40.3 kg/m2Brandon Amos MD Work Phone: [facility]04-14-2025 15:02-0400Body .3 kgBrandon Amos MD Work Phone: [facility]04-14-2025 15:02-0400Diastolic blood mm[Hg]Brandon Amos MD Work Phone: [facility]04-14-2025 15:02-0400Heart vmpm206 /minAmol Samir CAMPO Work Phone: [facility]04-14-2025 15:02-0400Systolic blood oooktvgg485 mm[Hg]Brandon Amos MD Work Phone: [facility]04-12-2025 14:48-0400Respiratory rate 16 /minLisa Jeanette Work Phone: [facility]04-12-2025 14:11-0400 Diastolic blood sjsteoem71 mm[Hg]Ying Jeanette Work Phone: 1(419)547-[address] [place], [place] 5312804-12-2025 14:11-0400 Heart zzxi667 /minLisa Aichholz Work Phone: 1(624)449-[address] [place], [place] 4655004-12-2025 14:11-0400 SaO2% (BldA) [Mass fraction]96 %Ying Aichholz Work Phone: [facility]04-12-2025 14:11-0400 Systolic blood opseqkhm280 mm[Hg]Ying Aichholz Work Phone: 1(105)966-[address] [place], [place] 4655004-07-2025 10:24-0400 Body mass index (BMI) [Ratio]40.79 kg/q1QyfjzoMegan Walker MD Work Phone: [facility] HealthcareLaxmrnoytr75-72-4243 10:24-0400Body .15 kgMegan Walker MD Work Phone: [facility] HealthcareKbctrlumvm03-24-3112 10:24-0400Diastolic blood yyqhjywl99 mm[Hg]Megan Walker MD Work Phone: [facility] HealthcareYpnbxdhdbq06-85-8718 10:24-0400Systolic blood ffjvywjm480 mm[Hg]Megan Walker MD Work Phone: [facility] HealthcareJoyjkmakko03-39-5023 22:13-0400Diastolic blood yxhadije73 mm[Hg]Ying Aichholz Work Phone: 1(253)342-[address] [place], [place] 4655003-26-2025 22:13-0400 Heart rate92 /minLisa Aichholz Work Phone: 1(341)192-[address] [place], [place] 4655003-26-2025 22:13-0400 Respiratory rate18 /minLisa Aichholz Work Phone: 1(328)906-[address] [place], [place] 4655003-26-2025 22:13-0400 SaO2% (BldA) [Mass fraction]97 %Ying Aichholz Work Phone: 1(487)429-[address] [place], [place] 4655003-26-2025 22:13-0400 Systolic blood mm[Hg]Ying Aichholz Work Phone: [facility]03-11-2025 13:51-0400 Body obwmvo222.48 cmLisa [facility] Work Phone: [facility]03-11-2025 13:51-0400 Body mass index (BMI) [Ratio]40.8 kg/m2Lisa [facility] Work Phone: [facility]03-11-2025 13:51-0400 Body zwqohg921.3 kgLisa [facility] Work Phone: [facility]03-10-2025 09:13-0400 Body mass index (BMI) [Ratio]40.6 kg/a7ZhjydvMegan Walker MD Work Phone: 6(904)529-[facility] HealthcareAjnqouuaqr70-06-6451 09:13-0400Body upkvtk092.7 kgMegan Walker MD Work Phone: 7(079)425-[facility] HealthcareEkhotbrvls74-93-9968 09:13-0400Diastolic blood jyvvhasw38 mm[Hg]Megan Walker MD Work Phone: 2(398)998-[facility] HealthcareLkquxzepwx45-85-0454 09:13-0400Systolic blood mm[Hg]Megan Walker MD Work Phone: 8(433)752-[facility] HealthcareIuzeozukxt47-93-6084 14:00-0500Body mass index (BMI) [Ratio]40.6 kg/e9SziwjtMegan Walker MD Work Phone: 0(277)257-[facility] HealthcareQibjeocvan61-83-0087 14:00-0500Body suwlnl240.7 kgMegan Walker MD Work Phone: [facility] HealthcareHnvpehoxnw26-71-8654 14:00-0500Diastolic blood flwmtbya24 mm[Hg]Megan Walker MD Work Phone: 0(769)398-[facility] HealthcareZleplrcxew03-48-4180 14:00-0500Systolic blood mhshacdm725 mm[Hg]Megan Walker MD Work Phone: 8(099)672-[facility] HealthcareXpwwzkbesz34-72-6691 15:33-0500Body mass index (BMI) [Ratio]40.79 kg/y2BaqlaaMegan Walker MD Work Phone: [facility] HealthcareEtfsfsxgzw99-61-1139 15:33-0500Body etwygk879.15 kgMegan Walker MD Work Phone: [facility] HealthcareQjufmvyfxt65-01-1934 15:33-0500Diastolic blood tmaschye71 mm[Hg]Megan Walker MD Work Phone: [facility] HealthcareYckqzaeguu56-07-5551 15:33-0500Systolic blood mm[Hg]Megan Walker MD Work Phone: [facility] HealthcareMlqtzvqvlm20-73-6097 03:11-0500Diastolic blood dhsodgsz31 mm[Hg]Ying Aichholz Work Phone: 1(138)[address]02-24-2025 03:11-0500 Heart rate83 /minLisa Aichholz Work Phone: 1(588)[address]02-24-2025 03:11-0500 Respiratory rate16 /minLisa Aichholz Work Phone: 1(402)249-[address] [place], [place] 4655002-24-2025 03:11-0500 SaO2% (BldA) [Mass fraction]98 %Ying Aichholz Work Phone: 1(179)824-[address] [place], [place] 4655002-24-2025 03:11-0500 Systolic blood txnkrejl801 mm[Hg]Ying Aichholz Work Phone: 1(515)756-[address] [place], [place] 4655002-23-2025 23:27-0500 Body nshubh600.48 cmLisa Aichholz Work Phone: [phone] [place], [place] 4655002-23-2025 23:27-0500 Body hmjpvzfbixp61.2 [degF]Ying Aichholz Work Phone: [phone] [place], [place] 4655002-23-2025 23:27-0500 Body .5 kgLisa Aichholz Work Phone: [phone] [place], [place] 4655002-12-2025 15:15-0500 Body mass index (BMI) [Ratio]40.79 kg/d6RonkefMegan Walker MD Work Phone: [facility]mywcqlfwq51[facility]47-9455 15:15-0500Body pqquxb653.15 Ayush Walker MD Work Phone: [facility] HealthcareLlvwyxtsbl46-62-9143 15:15-0500Diastolic blood jozdhgnw68 mm[Hg]Megan Walker MD Work Phone: [phone])779-[facility] HealthcareOnbhyipzta76-96-7165 15:15-0500Systolic blood pjfyrhxl445 mm[Hg]Megan Walker MD Work Phone: [phone])166-[facility] HealthcareIijjnpqulu81-60-1171 09:41-0500Body mass index (BMI) [Ratio]40.97 kg/h5WcnijsMegan Walker MD Work Phone: [phone] [place], [place] [address]Ofbxopxsjz93-91-2701 09:41-0500Body jmsgov083.61 kgMegan Walker MD Work Phone: [phone]-[facility] HealthcareNtqfzfggro66-70-8712 09:41-0500Diastolic blood rizdphkq90 mm[Hg]Megan Walker MD Work Phone: [facility] HealthcareBdzttospre74-73-2398 09:41-0500Systolic blood ujunrrzc523 mm[Hg]Megan Walker MD Work Phone: [facility] HealthcareWhnpldptku32-30-9369 09:38-0500Body mass index (BMI) [Ratio]42.18 kg/m2Ying Reid [employer] Work Phone: [facility] HealthcareRtbxcdlnnt23-77-6564 09:38-0500Body temperature 97.81 [degF]Ying Reid [employer] Work Phone: [facility] HealthcareLfsqxcnckr28-06-1425 09:38-0500Body rjbozu748.6 kgYing Reid [employer] OPERATOR Work Phone: [facility] HealthcareOwxsaqnjhu25-62-8928 09:38-0500Diastolic blood xvabfxng57 mm[Hg]Ying Reid COAL BRIQUETTE MACHINE OPERATOR Work Phone: [facility] HealthcareXcdrysylgx23-41-5722 09:38-0500Heart rate84 /min Ying Reid COAL BRIQUETTE MACHINE OPERATOR Work Phone: [facility] HealthcareKsutrbztaz86-97-2972 09:38-0500Respiratory rate18 /minYing Reid COAL BRIQUETTE MACHINE OPERATOR Work Phone: [facility] HealthcareGvpmxlxfab22-87-3819 09:38-9135AsD9% (BldA) [Mass fraction]99 %Ying Reid COAL BRIQUETTE MACHINE OPERATOR Work Phone: [facility] HealthcareFbzoqeousy39-02-5851 09:38-0500Systolic blood mm[Hg]Ying Reid COAL BRIQUETTE MACHINE OPERATOR Work Phone: [facility] HealthcareAquyactsnw92-51-3994 14:26-0400Body lguhfm267.1 Nelda Allison CAN OPERATOR.YARD ASSOCIATE Work Phone: [facility]10-04-2024 14:26-0400Body mass index (BMI) [Ratio]42.23 kg/m7PclhiBeth Allison APRN.YARD ASSOCIATE Work Phone: [facility]10-04-2024 14:26-0400Body paiuye138.25 kgBeth Allison APRN.YARD ASSOCIATE Work Phone: [facility]10-04-2024 14:26-0400Diastolic blood prqtdscy61 mm[Hg]Beth Allison APRN.YARD ASSOCIATE Work Phone: [facility]10-04-2024 14:26-0400Heart ldfp625 /minBeth Allison APRN.YARD ASSOCIATE Work Phone: [facility]10-04-2024 14:26-0400Systolic blood ibcfqxtp417 mm[Hg]Beth Allison APRN.YARD ASSOCIATE Work Phone: [facility]09-04-2024 14:33-0400Body mass index (BMI) [Ratio]43.71 kg/g9Kdsijqzjanell Malin-Katya CAN OPERATOR-FUEL STORAGE TECHNICIAN Work Phone: [facility] HealthcareXnviwywavo28-04-7727 14:33-0400Body uvigwi371.41 kgFelicglenn Hernandezor-Nossek CAN OPERATOR-FUEL STORAGE TECHNICIAN Work Phone: 1(419)[address] [place], [place] 3046709-04-2024 14:33-0400Diastolic blood nutdhjqd06 mm[Hg]Emerald Dea-Nossek CAN OPERATOR-FUEL STORAGE TECHNICIAN Work Phone: 1(441)[address] [place], [place] 3046709-04-2024 14:33-0400Heart rate98 /min Emerald Dea-Nossek CAN OPERATOR-FUEL STORAGE TECHNICIAN Work Phone: 1(892)[address] [place], [place] 3046709-04-2024 14:33-0400Systolic blood eiwlqzyu056 mm[Hg]Emerald Dea-Nossek CAN OPERATOR-FUEL STORAGE TECHNICIAN Work Phone: 1(725)[address] [place], [place] 3046708-22-2024 09:30-0400Body mass index (BMI) [Ratio]44.08 kg/z1Oqicsum Dea-Nossek CAN OPERATOR-FUEL STORAGE TECHNICIAN Work Phone: 1(275)[address] [place], [place] 3046708-22-2024 09:30-0400Body rwlaor196.32 kgFelicia Dea-Nossek CAN OPERATOR-FUEL STORAGE TECHNICIAN Work Phone: 1(478)[address] [place], [place] 3046708-22-2024 09:30-0400Diastolic blood skceoxts70 mm[Hg]Emerald Dea-Nossek CAN OPERATOR-FUEL STORAGE TECHNICIAN Work Phone: 1(226)[address] [place], [place] 3046708-22-2024 09:30-0400Heart rate76 /min Emerald Dea-Nossek CAN OPERATOR-FUEL STORAGE TECHNICIAN Work Phone: 1(119)[address] [place], [place] 3046708-22-2024 09:30-0400Systolic blood ahpzfseq480 mm[Hg]Emerald Dea-Nossek CAN OPERATOR-FUEL STORAGE TECHNICIAN Work Phone: 1(508)[address] [place], [place] 3046707-25-2024 12:43-0400Body zmydgc526.5 Blanca White MD Work Phone: [facility]07-25-2024 12:43-0400Body mass index (BMI) [Ratio]44.7 kg/j7WdjtqKameron White MD Work Phone: [facility]07-25-2024 12:43-0400Body cehzrd682.85 kgKameron White MD Work Phone: [facility]07-25-2024 12:43-0400Diastolic blood ikqlzfcw03 mm[Hg]Kameron White MD Work Phone: [facility]07-25-2024 12:43-0400Heart rate96 /min Kameron White MD Work Phone: [facility]07-25-2024 12:43-0400Systolic blood vbtugkyq715 mm[Hg]Kameron White MD Work Phone: [facility]05-31-2024 22:49-0400Heart rate96 /min Ying Reid Work Phone: 1(955)[address]05-31-2024 21:55-0400 Body vxiwtp808.48 cmLisa Larahrasz Work Phone: 1(468)[address]05-31-2024 21:55-0400 Body vsvbjxgvydu18.8 [degF]Ying Aichholz Work Phone: 1(391)[address]05-31-2024 21:55-0400 Body jaeslb370.86 kgLisa Aichholz Work Phone: 1(466)[address]05-31-2024 21:55-0400 Diastolic blood coyippug839 mm[Hg]Ying Aichholz Work Phone: 1(542)[address]05-31-2024 21:55-0400 Respiratory rate18 /minLisa Aichholz Work Phone: 1(744)[address]05-31-2024 21:55-0400 SaO2% (BldA) [Mass fraction]100 %Ying Aichholz Work Phone: 1(304)[address]05-31-2024 21:55-0400 Systolic blood zduecdnc286 mm[Hg]Ying Aichholz Work Phone: 1(318)[address]02-13-2024 09:25-0500 Body xcdfie422.5 cmLisa Aichholz COAL BRIQUETTE MACHINE OPERATOR Work Phone: [facility] HealthcareVnfolclige99-51-5262 09:25-0500Body mass index (BMI) [Ratio]44.34 kg/m2Ying Reid COAL BRIQUETTE MACHINE OPERATOR Work Phone: [facility] HealthcareVljxqrlmwc49-66-6927 09:25-0500Body temperature 97.5 [degF]Ying eRid COAL BRIQUETTE MACHINE OPERATOR Work Phone: [facility] HealthcareOjyimlsapn33-61-3943 09:25-0500Body .95 kgYing Reid COAL BRIQUETTE MACHINE OPERATOR Work Phone: [facility] HealthcareAdlubvbrlt84-52-8308 09:25-0500Diastolic blood qxaqqjwo36 mm[Hg]Ying Reid COAL BRIQUETTE MACHINE OPERATOR Work Phone: [facility] HealthcareRohhaahvff99-96-1644 09:25-0500Heart lksq319 /min Ying Reid COAL BRIQUETTE MACHINE OPERATOR Work Phone: [facility] HealthcareKdvcwtswqw21-51-3684 09:25-0500Respiratory rate19 /minLisa Reid COAL BRIQUETTE MACHINE OPERATOR Work Phone: [facility] HealthcareOlgyickwsd41-96-2530 09:25-3365AgO4% (BldA) [Mass fraction]98 %Ying Reid COAL BRIQUETTE MACHINE OPERATOR Work Phone: [facility]Barn[facility] HospitalQnxhadzuei82-53-9568 09:25-0500Systolic blood iwhylweg474 mm[Hg]Ying Reid COAL BRIQUETTE MACHINE OPERATOR Work Phone: [facility] HealthcareItpbcjwqbe25-93-6366 18:25-0400Body npyhqv181.48 Malinda Obregon Other [employer] Other 06-06-2022 18:25-0400Body mass index (BMI) [Ratio] 40.23 kg/m4FkrdfwMitzi Obregon Other [employer] Other 06-06-2022 18:25-0400Body gmyzrlnmugd56 [degF]Mitzi Obregon Other [employer] Other 06-06-2022 18:25-0400Body cciywx96.79 kgMitzi Obregon Other [employer] Other 06-06-2022 18:25-0400Respiratory rate18 /minMitzi Obregon Other [employer] Other 06-06-2022 18:25-5140LeQ2% (BldA) [Mass fraction]98 % Mitzi Obregon Other [employer] Other 11-11-2021 15:45-0500Body pyaefx276.42 cmAmber Ginty Other [employer] Other 11-11-2021 15:45-0500Body mass index (BMI) [Ratio] 23.09 kg/r5Rinhg Ginty Other [employer] Other 11-11-2021 15:45-0500Body plwfxoyxihg54.7 [degF]Esther Ginty Other [employer] Other 11-11-2021 15:45-0500Body zmaifl88.38 kgAmber Ginty Other [employer] Other 11-11-2021 15:45-0500Respiratory rate18 /minAmber Ginty Other [employer] Other 11-11-2021 15:45-7129AnP9% (BldA) [Mass fraction]96 % Esther Ginty Other [employer] Other Encounters Encounter DateEncounter TypeCare ProviderFacilityStart: 05-04-2025 End: 88-27-1029Nvxsoe outpatient new 30 minutesMoella Barrow DPM Work Phone: NOTG Julio PodiatryComment on above:Ingrown toenail (Primary Dx); Left foot painStart: 05-04-2025 End: 13-51-1331bscdrpprztUVGJUJ MACLEAN-BERANNot AvailableStart: 04-27-2025 End: 61-90-9859Sdlvcownw identifierMnjudi Hernandez DDS Work Phone: [facility] ClinicStart: 04-27-2025 End: 94-65-4900svpqpbc oral evaluation - problem focusedHutchings Psychiatric Centerel ChenHubbard Regional HospitalS Work Phone: [facility] DistrictStart: 04-27-2025 ambulatoryHutchings Psychiatric Centerel Hernandez [facility] DEPARTMENTStart: 04-20-2025 End: 90-55-5933ythkiglnbkDxrb J Aichholz COAL BRIQUETTE MACHINE OPERATOR-C Work Phone: [facility] Work Phone: Start: 04-20-2025 End: 63-58-3638Wormtyg encounter procedureYing Reid COAL BRIQUETTE MACHINE OPERATOR-C-[facility] Work Phone: Start: 04-18-2025 End: 78-54-8131hqwbracwngKgcf J Aichholz COAL BRIQUETTE MACHINE OPERATOR-C Work Phone: [facility] Work Phone: Start: 04-18-2025 End: 14-59-3147Hqhzjsl encounter procedureEsther Harris CAN OPERATOR-[facility] Work Phone: Start: 04-10-2025 End: 02-30-1499ctjyumikehBVSJRGUAS ARTHUR MEADEFacility:[facility] Hospitaltart: 03-22-2025 End: 72-94-2936btjfnlomqzWKV [facility] Work Phone: Start: 03-22-2025 End: 02-87-8430Lkeraqi encounter Terra Reid COAL BRIQUETTE MACHINE OPERATOR-C-[facility] Work Phone: Start: 03-13-2025 End: 01-49-8195Zgxjpizdx encounterCarole Gaston MD Work Phone: [facility] Metabolic InstituteComment on above: Medication Preauthorization (Wegovy 0.25mg- Not covered)Start: 03-01-2025 End: 01-38-1166Nhzieog encounter Fabrizio Gaston MD Work Phone: EndocrinologyComment on above:Polycystic ovarian syndromeStart: 03-01-2025 End: 50-61-6078efrhdvnkofLMIVPWQWCAROLE GASTONFacility:[facility] Hospitaltart: 02-14-2025 End: 75-05-0867krrkmdmmokIEOVAZEVD GRICEL MEAFARHATFacility:[facility] Hospitaltart: 02-14-2025 End: 26-96-5542Zgdgqwpcre care visitMegan Walker MD Work Phone: noms [place] OBGYNComment on above: care following vaginal delivery ([facility])Start: 02-13-2025 End: 03-36-7974Qesbms outpatient visit 15 Tamika Reid COAL BRIQUETTE MACHINE OPERATOR Work Phone: noMS CWM FMComment on above:Mild episode of recurrent major depressive disorder (Primary Dx); Obesity, morbid, BMI 40.0-49.9 [place]Start: 02-13-2025 End: 80-53-9914clepncwvayMRSS AICHHOLZNot AvailableStart: 02-13-2025 End: 83-12-4128Lhxupq flowsheetYing Reid COAL BRIQUETTE MACHINE OPERATOR Work Phone: noms CWM FMStart: 02-13-2025 End: 91-24-2665Qlbwbz sailajaheetYing Reid COAL BRIQUETTE MACHINE OPERATOR Work Phone: noms CWM FMStart: 02-06-2025 End: 71-90-0582akeowoqvlaJXBYONFEZahraa GASTONFacility:[facility] Hospitaltart: 02-03-2025 End: 91-13-3378kfnaszteoeZwxr J Aichholz Work Phone: [facility] Work Phone: Start: 02-03-2025 End: 13-34-9643Gwpxbon encounter procedureRosa Villarreal APRN-[facility] Work Phone: Start: 01-30-2025 End: 42-10-7192Zhacty Chava Walker MD Work Phone: [facility] [place] OBGYNComment on above:Iron deficiency anemia, unspecified iron deficiency anemia type (Primary Dx)Start: 01-16-2025 End: 84-91-4065Ooovmzvfl Cesiadiann Deana Parks [facility] Work Phone: [facility]: 01-07-2025 End: 08-25-5295dadvkdwuwvBxhy J Aichholz Work Phone: [facility] Work Phone: Start: 01-07-2025 End: 56-68-9627Bfaggln encounter procedureYojana Schaeffer MD- Visit Work Phone: Start: 01-06-2025 End: 54-52-8627ehyxpzuybkSmfk J Aichholz Work Phone: [facility] Work Phone: Start: 01-06-2025 End: 04-12-1110Mkdftrx encounter procedureYojana Schaeffer MD- Visit Work Phone: Start: 01-01-2025 End: 30-03-0017Ujvrhbhr Result EncounterBrian J Printy MD Work Phone: noms External Department UnsolicitedStart: 01-01-2025 End: 44-43-3525Ykuhyqoq Result EncounterBrock Trejo MD Work Phone: noms External Department UnsolicitedStart: 12-31-2024 End: 36-04-6736Kntvrlzs Result EncounterBrock Trejo MD Work Phone: noms External Department UnsolicitedStart: 12-31-2024 End: 37-74-6317Tjxawjfr Result EncounterBrock Trejo MD Work Phone: noms External Department UnsolicitedStart: 12-31-2024 End: 09-12-3252Pndpgtezam and management of inpatientBROCK TREJO MD-3 [facility] Work Phone: Start: 12-27-2024 End: 68-55-1531Mikmpe flowsJordi Walker MD Work Phone: noms [facility] OBStart: 12-27-2024 End: 62-94-3063Lgylrp Cece Walker MD Work Phone: noms [facility] OBStart: 12-27-2024 End: 49-85-5500Yumrjww encounter procedureMD-[facility] Megan Walker-3 [facility] Labor - O/PStart: 12-27-2024 End: 12-59-5704nzhtydxfdkXZK STAFFFacility:[facility] Start: 12-27-2024 End: 58-20-0915Yxorilsw flow Ermelinda Walker MD Work Phone: noms [facility] OBComment on above:Third trimester (HHS-HCC); 36 weeks gestation of (HHS-HCC); Hemorrhoids, unspecified hemorrhoid type; Weight loss, abnormal; Polyhydramnios affecting in third trimester (HHS-HCC); Uterine contractions (HHS-HCC); Urinary tract infection without hematuria, site unspecifiedStart: 12-27-2024 End: 00-61-6375ssvuskmpclHCSDFK P JONESNot AvailableStart: 12-27-2024 End: 66-18-5056Azekzif encounter procedureNoms Sws Ob NurseNOMS SWS OBComment on above:36 weeks gestation of (HHS-HCC); Polyhydramnios affecting in third trimester (HHS-HCC)Start: 12-22-2024 End: 28-22-2018Gttgcfx encounter procedureKatpooja Juan DO-3 [facility] Labor - O/PStart: 12-22-2024 End: 27-18-6632dfbhzodmtiZoyujzez RinkesFacility:[facility] Hospitaltart: 12-22-2024 End: 99-48-8252Sdnkibcx Result EncounterKathleen E Yessica DO Work Phone: noms External Department UnsolicitedStart: 12-22-2024 End: 09-90-9965Bruxuncn Result EncounterKathleen E Yessica DO Work Phone: noAL External Department UnsolicitedStart: 12-22-2024 End: 93-62-2395cvvsjnqoboEDSHHP P JONESNot AvailableStart: 12-22-2024 End: 60-19-1307Sdtwvdg encounter procedureNoms Sws Ob NurseNOMS SWS OBComment on above:Polyhydramnios affecting in third trimester (HHS-HCC); 35 weeks gestation of (HHS-HCC)Uterine contractions (HHS-HCC) (Primary Dx); Third trimester (HHS-HCC); 35 weeks gestation of (HHS-HCC); Hemorrhoids, unspecified hemorrhoid type; Weight loss, abnormal; Polyhydramnios affecting in third trimester (HHS-HCC); Urinary tract infection without hematuria, site unspecifiedStart: 12-22-2024 End: 92-19-9379kaclpafcarKZONXH JONESNot AvailableStart: 12-19-2024 End: 41-13-3688Mfxcdh Cece Walker MD Work Phone: NOMS SWS OBStart: 12-19-2024 End: 19-19-7792Isrfxy Cece Walker MD Work Phone: NOM[facility] OBStart: 12-19-2024 End: 11-04-5050Apgmout encounter procedureGAYATRI Garcia3 [facility] Labor - O/PStart: 12-19-2024 End: 38-90-4902vwtwzlvmbhKeeu J Aicsurgical specialty center at coordinated healthmeaganFacility:[facility] Hospitaltart: 12-19-2024 End: 40-29-2243Nfusequq ReferredGAYATRI Walker-Lab [facility] Work Phone: Start: 12-19-2024 End: 79-56-3177Wckxvgll flow Ermelinda Walker MD Work Phone: noms [facility] OBComment on above: screening for streptococcus B ([facility]-HCC); Third trimester ([facility]-HCC); 34 weeks gestation of ([facility]); Hemorrhoids, unspecified hemorrhoid type; Weight loss, abnormal; Polyhydramnios affecting in third trimester ([facility]-HCC)Start: 12-19-2024 End: 25-85-0785cghedrdbxnHwtmuf P JonesFacility:[facility] Hospitaltart: 12-19-2024 End: 37-35-4352Rnosomm encounter procedureNoms Sws Ob NurseNOMS [facility] OBComment on above:Polyhydramnios affecting in third trimester ([facility]-HCC); 34 weeks gestation of ([facility])Start: 12-15-2024 End: 82-25-6203Fptsqyr encounter procedureGAYATRI Walker-3 [facility] Labor - O/PStart: 12-15-2024 End: 20-66-9451awiwthvcxdZxba J Aicsurgical specialty center at coordinated healthmeaganFacility:[facility] Hospitaltart: 12-15-2024 End: 74-32-6781Lgxpsklq Result Robert Walker MD Work Phone: noms External Department UnsolicitedStart: 12-15-2024 End: 30-10-3409Wvsgreak Result Robert Walker MD Work Phone: noms External Department UnsolicitedStart: 12-12-2024 End: 09-85-7137Mwknkrlf flow Ermelinda Walker MD Work Phone: noms [facility] OBComment on above:Third trimester ([facility]-HCC); 33 weeks gestation of ([facility]); Nonintractable headache, unspecified chronicity pattern, unspecified headache type; Poor weight gain of , second trimester (HHS-HCC); Hemorrhoids, unspecified hemorrhoid type; Weight loss, abnormal; Polyhydramnios affecting in third trimester ([facility]-HCC); Urinary tract infection without hematuria, site unspecifiedStart: 12-12-2024 End: 54-34-3254qdzdzwqzdkQBRAFW P JONESNot AvailableStart: 12-10-2024 End: 81-57-1037Uddgcu Chava Walker MD Work Phone: noms [facility] OBComment on above:Acute vaginitis (Primary Dx)Start: 12-05-2024 End: 92-60-4023Juvado Cece Walker MD Work Phone: noms [facility] OBStart: 12-05-2024 End: 70-38-1802Zrzgnn Cece Walker MD Work Phone: noms [facility] OBStart: 12-05-2024 End: 53-36-9481Itkfvtax flow Ermelinda Walker MD Work Phone: noms [facility] OBComment on above:Third trimester ; 32 weeks gestation of ; Nonintractable headache, unspecified chronicity pattern, unspecified headache type; Hemorrhoids, unspecified hemorrhoid type; Poor weight gain of , second trimester; Weight loss, abnormal; Polyhydramnios affecting in third trimesterStart: 12-05-2024 End: 88-79-5820zkohvommsvGMZOAQ P JONESNot AvailableStart: 11-23-2024 End: 93-40-1091Hsixqaanh Robert Walker MD Work Phone: noms [facility] OBStart: 11-22-2024 End: 12-67-7812Grsarfys Result EncounterKathldaquan E Rinkes DO Work Phone: noms External Department UnsolicitedStart: 11-22-2024 End: 80-50-9384Kjftaouk Result EncounterKathleen E Rinkes DO Work Phone: noms External Department UnsolicitedStart: 11-22-2024 End: 12-40-3634Kcobgha encounter procedureShayy Juan DO-3 [facility] - O/PStart: 11-22-2024 End: 19-02-5512yvawtudibwFxrodtdn RinkesMulticare [facility]tart: 11-14-2024 End: 88-23-1884Yimxzslg flow sheetMegan Walker MD Work Phone: [facility] OBComment on above:Third trimester ; 29 weeks gestation of ; Nonintractable headache, unspecified chronicity pattern, unspecified headache type; Hemorrhoids, unspecified hemorrhoid type; Poor weight gain of , second trimester; Weight loss, abnormal; Polyhydramnios affecting in third trimesterStart: 11-14-2024 End: 21-13-1722evwaiqdxgdVLIWOQ P JONESNot AvailableStart: 10-24-2024 End: 34-58-3280Yfcgl abstractingScanning Provider ExternalMaternal- Medicine at [facility] Centertart: 10-17-2024 End: 45-45-5750pfuzzgttmnIYLU MALEFacility:[facility] Hospitaltart: 10-17-2024 End: 49-68-2284Ffgsddo encounter procedureBrandon Amos MD Work Phone: Maternal MedicineComment on above:Suspected anomaly not found (Primary Dx); Encounter for anatomic survey (HCC); 25 weeks gestation of (HCC)Suspected anomaly not found (Primary Dx); 25 weeks gestation of (HCC)Start: 10-15-2024 End: 76-17-0129Ucoeked encounter procedureYing Reid Work Phone: [facility]-3 [facility] Labor - O/P Start: 10-15-2024 End: 02-14-9336dtsoqtvcnjTgbt J Aichholz Work Phone: [facility] Work Phone: Start: 10-12-2024 End: 29-02-7691Nxkzblfia encounterFv Ob Mfm Work Phone: Maternal MedicineComment on above:Appointment Start: 10-11-2024 End: 10-64-2076Xirmeb Chava Walker MD Work Phone: noms External Department UnsolicitedStart: 10-11-2024 End: 11-93-3834Wchxersdop OrdersOb Industrial Relations Worker Transcribe ProviderMaternal MedicineStart: 10-10-2024 End: 72-65-3595Pglfsjxj flow sheetMegan Walker MD Work Phone: noms [facility] OBComment on above:Polyhydramnios in second trimester, single or unspecified fetus (Primary Dx); Second trimester ; Nonintractable headache, unspecified chronicity pattern, unspecified headache type; Hemorrhoids, unspecified hemorrhoid type; Poor weight gain of , second trimester; Weight loss, abnormal; 24 weeks gestation of pregnancyStart: 10-10-2024 End: 65-25-5481vlacucdjwlZVAFOH P JONESNot AvailableStart: 09-28-2024 End: 07-61-8642Erxqohr encounter procedureYing Reid Work Phone: [facility]-3 [facility] Labor - O/P Start: 09-28-2024 End: 50-87-6427vcnnaclcyeImfk J Aichholz Work Phone: [facility] Work Phone: Start: 09-28-2024 End: 33-43-2259Xkozdjbp Result EncounterBrock Trejo MD Work Phone: noms External Department UnsolicitedStart: 09-28-2024 End: 35-46-8139Fpukbomw Result EncounterBrock Trejo MD Work Phone: noms External Department UnsolicitedStart: 09-15-2024 End: 52-08-3358Ubunky Chava Walker MD Work Phone: noms SWS OBComment on above:Acute vaginitis (Primary Dx)Start: 09-13-2024 End: 01-14-8522rnbmzfmqwfQywe J Aichholz Work Phone: [facility] Work Phone: Start: 09-13-2024 End: 36-61-9624Limwhtl encounter procedureYing Reid Work Phone: [facility] Work Phone: Start: 09-12-2024 End: 63-45-4755Ishmnyij flow Ermelinda Walker MD Work Phone: noms [facility] OBComment on above:Poor weight gain of , second trimester (Primary Dx); 20 weeks gestation of ; Second trimester ; Weight loss, abnormal; Nonintractable headache, unspecified chronicity pattern, unspecified headache type; Hemorrhoids, unspecified hemorrhoid typeStart: 09-12-2024 End: 48-85-9722skhzqqsrskKYULYF P JONESNot AvailableStart: 09-07-2024 End: 64-29-9667Xhhesl Cece Walker MD Work Phone: noms [facility] OBStart: 09-07-2024 End: 91-74-4932Cvaflu Cece Walker MD Work Phone: noms [facility] OBStart: 09-07-2024 End: 39-47-2231Bylqtsxh flow Ermelinda Walker MD Work Phone: noms [facility] OBComment on above:Hemorrhoids, unspecified hemorrhoid type (Primary Dx); 20 weeks gestation of ; Second trimester ; Weight loss, abnormal; Nonintractable headache, unspecified chronicity pattern, unspecified headache typeStart: 09-07-2024 End: 06-84-4949cbzhyefdrtLDQWXQ P JONESNot AvailableStart: 09-05-2024 End: 02-81-1299rbyuauupbaGXRQSR JONESNot AvailableStart: 08-31-2024 End: 96-69-7003Junkhhrd manny Walker MD Work Phone: noms [facility] OBComment on above:19 weeks gestation of ; Second trimester ; Weight loss, abnormal; Nonintractable headache, unspecified chronicity pattern, unspecified headache type; Leukocytes in urine; Vaginal dischargeStart: 08-31-2024 End: 91-96-8120mwcqcwwuikFJPOWT P JONESNot AvailableStart: 08-29-2024 End: 09-43-2340Kkxwbdwvo Robert Walker MD Work Phone: NOMS SWS OBStart: 08-28-2024 End: 83-49-1009Npkofjtsh department patient visitYing Bermudezsurgical specialty center at coordinated healthmeagan Work Phone: [facility] Work Phone: Start: 08-17-2024 End: 33-72-2317ajxnqdmfzqGIAVSR P JONESNot AvailableStart: 08-17-2024 End: 14-28-0386Uqujmgcd flow Ermelinda Walker MD Work Phone: [facility] OBComment on above:Weight loss, abnormal (Primary Dx); 17 weeks gestation of ; Second trimester ; Nonintractable headache, unspecified chronicity pattern, unspecified headache typeStart: 08-17-2024 End: 01-27-9976Iiyjaj Cece Walker MD Work Phone: NOMS SWS OBStart: 08-17-2024 End: 52-71-0697Svuaqx Cece Walker MD Work Phone: [facility] SWS OBStart: 07-25-2024 End: 82-01-0684qbbwqbmliiHRWZYH JONESNot AvailableStart: 07-14-2024 End: 48-18-1158Dathkw Cece Walker MD Work Phone: [facility] SWS OBStart: 07-14-2024 End: 85-22-7848Lxbukl Cece Walker MD Work Phone: [facility] SWS OBStart: 07-14-2024 End: 30-25-0493Jakcedik flow Ermelinda Walker MD Work Phone: N[facility] OBComment on above:GA: 66q4vPlocw: 07-14-2024 End: 71-61-1123zwqavjiintOQLJGP P JONESNot AvailableStart: 06-13-2024 End: 14-57-6216lovmyfoaqzMmgx J AichholzFacility:[facility] Hospitaltart: 06-06-2024 End: 68-16-6132rgkfygjkqpAGGOFR JONESNot AvailableStart: 06-06-2024 End: 18-70-4030Bgxdtadg flow sheetNoms Sws Ob NurseNOMS SWS OBComment on above: GA: [id number]: 05-17-2024 End: 84-31-1563Obxasa flowsheetLisa Aichholz [employer] MACHINE OPERATOR Work Phone: [facility] FMStart: 05-17-2024 End: 54-85-4208Flvmgg flowsheetLisa Aichholz [employer] MACHINE OPERATOR Work Phone: [facility] FMStart: 05-17-2024 End: 96-91-9680Briifx outpatient visit 15 minutesLisa Jeanette COAL BRIQUETTE MACHINE OPERATOR Work Phone: noms CWM FMComment on above:Obesity, morbid, BMI 40.0- 49.9 (CMS/HCC) (Primary Dx); Strain of thoracic back regionStart: 05-17-2024 End: 85-32-4856hdiyeekenuUFRY AICHHOLZNot AvailableStart: 05-09-2024 End: 42-45-3491qamjcrlvytWtjth Schmid APRN.CNP Work Phone: [facility] HospitalCComment on above: MedicationStart: 04-27-2024 End: 53-43-7322bfcqzikccfJmxuc Rajesh RUIZ Work Phone: diSur[facility] Hospitals of America FHCComment on above:Obesity, Class III, BMI 40-49.9 (morbid obesity) (HCC) (Primary Dx)Start: 04-27-2024 End: 96-32-6407Zznuiwnxvuhd consultation with Vicente Mena RD Work Phone: diSur[facility] FHCStart: 04-08-2024 End: 35-54-6728Jgxacjk encounter procedureBeth Allison APRN.CNP Work Phone: [facility] HospitalCComment on above: Obesity, Class III, BMI 40-49.9 (morbid obesity) (HCC) (Primary Dx); Anxiety and depression; IFG (impaired fasting glucose); Medication management; Dietary counseling; Exercise counseling; Disturbance in sleep behaviorStart: 04-08-2024 End: 94-52-8270ytwenhrxswZjort Schmid APRN.YARD ASSOCIATE Work Phone: [facility] HospitalCComment on above: Denied medicationStart: 04-08-2024 End: 19-48-2250Udzmrkcjz encounterBeth Allison APRN.YARD ASSOCIATE Work Phone: [facility] HospitalCComment on above: Zepbound PAStart: 03-31-2024 End: 15-98-0404fblywcyczbShalp Adrien White MD Work Phone: Endadair county health systemogyComment on above:MedicationStart: 03-10-2024 End: 35-51-5334Xqoxeurpb encounterMegan Walker MD Work Phone: noms SWS OBStart: 03-09-2024 End: 12-84-8206Cndwri outpatient visit 15 minutesFelicia Phil Hernandezor-Nosseping CAN OPERATOR-FUEL STORAGE TECHNICIAN Work Phone: NOMS CI BHComment on above:Other insomnia; Moderate episode of recurrent major depressive disorder (HCC) (CMS/HCC)Start: 03-09-2024 End: 71-33-7879Hvhhad flowsheetFelicia Phil Dea-Nossek CAN OPERATOR-FUEL STORAGE TECHNICIAN Work Phone: NOMS CI BHStart: 03-09-2024 End: 56-71-6786Utckso flowsheetFelicia Phil Dea-Nossek CAN OPERATOR-FUEL STORAGE TECHNICIAN Work Phone: NOMS CI BHStart: 03-02-2024 End: 96-53-7365Sbgnty Jeanmarie Hadley [facility] Work Phone: noms SWS BHComment on above:Mood disorder (CMS/HCC) Start: 03-02-2024 End: 82-13-9777Yzccbw Adelina Hadley [facility] Work Phone: noms SWS BHStart: 03-02-2024 End: 47-08-2594Ibzsss Adelina Hadley [facility] Work Phone: noms SWS BHStart: 02-25-2024 End: 73-89-1087Tpbyvx flowsheetFelicia Phil Dea-Nossek CAN OPERATOR-FUEL STORAGE TECHNICIAN Work Phone: noMS CI BHStart: 02-25-2024 End: 63-25-1207Cdmxmi flowsheetFelicia Phil Dea-Nossek CAN OPERATOR-FUEL STORAGE TECHNICIAN Work Phone: noms CI BHStart: 02-25-2024 End: 27-62-9457Ylnczy outpatient new 60 minutesFelicia Phil Dea-Nossek CAN OPERATOR-FUEL STORAGE TECHNICIAN Work Phone: noms CI BHComment on above:Mood disorder (CMS/HCC); Moderate episode of recurrent major depressive disorder (HCC) (CMS/HCC)Start: 52-57-2762gsdwkdnuuwWWPZMOYUP GRICEL MEADEFacility:[facility] HospitalStart: 02-16-2024 End: 08-19-9063Zvcctobenv hospital visit by physicianCt [facility] Work Phone: [facility] LODI HOSPComment on above:Elevated testosterone level [R79.89]Start: 51-27-9109vqqiqepzkbZueve Arvind Patel MD Work Phone: EndocrinologyComment on above:labsStart: 66-82-8796Z- mail encounter from caregiverKameron White MD Work Phone: EndocrinologyStart: 01-28-2024 End: 22-70-4489Arkotiw encounter procedureKameron White MD Work Phone: EndocrinologyComment on above:Irregular periods (Primary Dx); Class 3 severe obesity with body mass index (BMI) of 40.0 to 44.9 in adult, unspecified obesity type, unspecified whether serious comorbidity present ([facility]) Start: 12-04-2023 End: 73-41-8788Btilqlins department patient visitYing Reid Work Phone: [facility] Work Phone: Start: 09-08-2023 End: 32-44-3750Jkfziovce Result EncounterGeneric External Data ProviderNOMS External Department UnsolicitedStart: 09-08-2023 End: 95-95-0468Jgptfrirl Result EncounterGeneric External Data ProviderNOMS External Department UnsolicitedStart: 89-90-1462Qqogwi flowsheetYing Reid COAL BRIQUETTE MACHINE OPERATOR Work Phone: noms CWM FMStart: 62-13-2321Hgrlgj flowsheetYing Reid COAL BRIQUETTE MACHINE OPERATOR Work Phone: noms CWM FMStart: 08-18-2023 End: 96-51-4415Vhogvi outpatient visit 15 minutesLisa Reid COAL BRIQUETTE MACHINE OPERATOR Work Phone: noms CWM FMComment on above:Laryngitis (Primary Dx); Morbid obesity with BMI of 40.0-44.9, adult ([facility]); COVID-19 virus detectedStart: 08-05-2022 End: 57-26-6651vzbbwiitknXDB YING REIDFacility:O5Zouch: 12-09-2021 End: 87-22-4349qllhnyqmyyNolrrn Dymond [facility] [place] Other Start: 23-70-0608Dtgeqm outpatient visit 15 minutes Mitzi ObregonFPG Urgent Care ClydeStart: 07-15-2021 End: 66-45-8541klbjmjnjpxQjzdlaivd Breault Other [facility] [place] Other Start: 50-38-0514Wfmwhq outpatient visit 5 minutes Crys TruongFPCk Urgent Care ClydeStart: 05-16-2021 End: 41-71-5895dsobsdjeexSqbsl Lian Other Nort [place] Other Start: 56-47-2176Xjejau outpatient visit 15 minutes Esther ZeeyFPG Urgent Care Tien Procedures DateProcedureProcedure DetailPerforming ClinicianStart: 04-27-2025 End: 36-11-9301zaju hygiene instructionsLoretta Hernandez DDS Work Phone: Start: 01-16-2025 End: 68-41-7925Zgyhvcms procedureSusadiann Parks WHCNP Work Phone: Start: 44-42-0194Ymkxhkos blood count with white cell differential, automatedBrock Trejo MD Work Phone: start: 91-24-5129Idlrepip screenLisa AichholzComment on above:Result Comment: PERFORMED BY: [place] [address] [place] [address] PATHOLOGIST CLOTH BALE HEADER MOLLY TAYLOR M.D.Start: 76-96-5646Qtsldkho blood count with white cell differential, automatedBrock Trejo MD Work Phone: start: 11-86-8294PIM W/RFX TO QUANT & TP ABS ([facility]) Brock Trejo MD Work Phone: start: 09-71-6246HTCETPAH(PAMG-1)Brock Trejo MD Work Phone: start: 41-55-4035XU URINE DRUG SCREEN (NO THC)Brock Trejo MD Work Phone: start: 75-50-4607Dclaq dip stick/tablet rgnt auto w/o microscopyBrock Trejo MD Work Phone: start: 60-67-2674Iesci dip stick/tablet rgnt non-auto w/o micrscpPamol Walker MD Work Phone: start: 58-31-9341Ktrmsmtftgafdpx for antepartum monitoring of fetusLisa [facility] Work Phone: Start: 37-41-3015Zhhcvkl bacterial quanttative colony count urineKataleksandareen E Rinsada DO Work Phone: start: 05-21-0473JI URINE DRUG SCREEN (NO THC)Shayy Juan DO Work Phone: start: 12-22-2024 End: 06-38-8791Myswh dip stick/tablet rgnt auto w/o microscopyKathleen E Rinsada DO Work Phone: start: 44-48-2088Fkjmq cultureLisa [facility] Work Phone: Start: 19-26-2650Wscpbxpmkiykd agalactiae cultureLisa [facility] Work Phone: Start: 88-47-5505Kwyse dip stick/tablet rgnt non-auto w/o Celina Walker MD Work Phone: start: 89-66-3666Eelwkambyr scan - obstetricLisa [facility] Work Phone: Start: 19-37-5634Fgu fibronectin cervicovag secretions semi-quanMegan Walker MD Work Phone: start: 38-97-5924Lutcexz bacterial quanttative colony count Madhav Walker MD Work Phone: start: 33-07-8873Tafhp dip stick/tablet rgnt auto w/o microscopyMegan Walker MD Work Phone: start: 25-91-6977Blzkb cultureLisa [facility] Work Phone: Start: 21-96-1470Yovys dip stick/tablet rgnt non-auto w/o micrscSanaz Walker MD Work Phone: start: 79-72-3534Czlcj dip stick/tablet rgnt non-auto w/o Celina Walker MD Work Phone: start: 68-20-5070Okaod cultureLisa Aichholz Work Phone: Start: 26-89-5674EILWYNLY(PAMG-1)Shayy Hill Rinkes DO Work Phone: start: 62-72-3078Fvoxukk bacterial quanttative colony count urineKathleen E Rinkes DO Work Phone: start: 82-49-6469Uuebf dip stick/tablet rgnt auto w/o microscopyKathleen E Rinkes DO Work Phone: start: 06-38-0888Sjnro dip stick/tablet rgnt non-auto w/o Celina Walker MD Work Phone: start: 02-87-4455Po preg uterus after 1st trimest 07/06 gestationOb Industrial Relations Worker Transcribe ProviderStart: 98-91-2389Oewixybqcht of glucose 1 hour after glucose challenge for glucose tolerance testMegan Walker MD Work Phone: start: 10-75-3676Gcfbx dip stick/tablet rgnt non-auto w/o Celina Walker MD Work Phone: start: 16-09-7256NZONNDRY(PAMG-1)Brock Trejo MD Work Phone: start: 13-20-0440Msumhph bacterial quanttative colony count urineBrock Trejo MD Work Phone: start: 81-23-9278UX URINE DRUG SCREEN (NO THC)Brock Trejo MD Work Phone: start: 18-52-7920Knsrp dip stick/tablet rgnt auto w/o microscopyBrock Trejo MD Work Phone: start: 44-58-7643Nrqvx cultureLisa Aichholz Work Phone: Start: 05-37-5064Ovcur dip stick/tablet rgnt non-auto w/o Celina Walker MD Work Phone: start: 37-81-5477Jjpfq dip stick/tablet rgnt non-auto w/o micrscpPamol Walker MD Work Phone: start: 28-46-9756Injnsmpq identification testLiSamaritan Healthcare Work Phone: Start: 91-71-2229Ocubvylinhbxy of growth of fungiLiSamaritan Healthcare Work Phone: Start: 57-81-9483Mpwxpcexjod vaginalis detectionLiSamaritan Healthcare Work Phone: Start: 81-52-8283Hskrogdahl scan - obstetricLiSamaritan Healthcare Work Phone: Start: 94-68-8191Tmdlppbgj cultureMegan Walker MD Work Phone: start: 73-04-6514Wnhsb chlamydia trachomatis amplified probe tqMegan Walker MD Work Phone: start: 12-06-2350Vgbqs dip stick/tablet rgnt non-auto w/o micrscpPamol Walker MD Work Phone: start: 99-91-9964HXU, APT HPV,RFX 16/18,45Megan Walker MD Work Phone: start: 50-06-5736HQ PELVIS TRANSVAGINALGeneric External Data ProviderStart: 64-13-0665Nv transvaginalGeneric External Data Provider Plan of Treatment DateCare ActivityDetailAuthorStart: 07-17-2025 End: 76-77-6202Wkskqgd encounter bggndunhk68/12/2026 10:00 AM EST Office Visit RANDA ANGEL [address] [place] [address] Megan Walker MD [address] [place] [address] NOMBrigido LOWENStart: 05-04-2025 End: 03-46-5791Oufwebb encounter fdsnqlkum79/30/2025 8:00 AM EDT Office Visit [facility] [address] [place] [address] Jose Barrow DPM [address] [place] [address] NOMS [facility] PodiatryStart: 97-77-1100[facility] Work Phone: Start: 04-05-2025 End: 10-71-2368hdmsvbxhvv89/01/2025 3:00 PM EDT [facility] [address] [place], [place] [id number] Carole Rollins MD [address] [place] [address] 4 wks virtualEndocrinologyComment on above:4 wks virtualStart: 03-22-2025 End: 26-25-1709Ulehiqo encounter ekmdpqijb59/17/2025 6:00 PM EDT Office Visit [facility] CWPhil [facility] [address] [place] [address] Ying Reid NP [address] [place] [address] NOMS CWM FMStart: 46-49-4389Ymtwexqou vaccinationProMedica Health SystemStart: 02-14-2025 End: 38-75-3091gpcfxiiteeNXPH SWS OBComment on above: care following vaginal delivery ([facility])Start: 02-13-2025 End: 62-43-2160Lqnjcis encounter rxfmddquw27/11/2025 4:15 PM EDT Office Visit N[facility] CWM FM [address] [place] [address] Ying Reid, CRISTINA [address] [place] [address] ArrivedNOTULSA CENTER FOR BE[facility] [place] FMComment on above:ArrivedStart: 02-08-2025 DTaP,Tdap and Td Vaccines (6 - Tdap)DTaP,Tdap and Td Vaccines (6 - Tdap) [facility] DrDoctor SystemStart: 02-54-9038Qzwee microalbumin profileDTaP,Tdap,Td Vaccine (6 - Tdap)[facility] Hospitaltart: 01-30-2025 End: 50-41-6696TZG panel - Blood by Automated countCBC Lab Routine Iron deficiency anemia, unspecified iron deficiency anemia type Expected: 01/30/2025 (Approximate), Expires: 01/30/2026NOBarn[facility] Work Phone: comment on above:Expected: 01/30/2025 (Approximate), Expires: 01/30/2026Start: 00-03-5931GyoyKeefe [facility] Hospital Work Phone: Start: 01-04-2025 End: 40-40-5567Pjrslpz encounter procedureNOMS SWS OBStart: 18-39-7199QflzuxseaDayton Children's Hospitaltart: 79-65-8279Zjyrvfdo admissionDayton Children's Hospitaltart: 97-41-4933Ufrtrtcv of Products of Conception, External ApproachDelivery of Products of Conception, External ApproachDayton Children's Hospitaltart: 27-74-8660Cwkvhproubiu of Other Therapeutic Substance into Female Reproductive, Via Natural or Artificial OpeningIntroduction of Other Therapeutic Substance into Female Reproductive, Via Natural or Artificial Open ingDayton Children's Hospitaltart: 93-77-5644Dehcjk Perineum Muscle, Open ApproachRepair Perineum Muscle, Open ApproachWvumedicine Harrison Community Hospital CenterStart: 75-87-4752UzjixtirnWvumedicine Harrison Community Hospital CenterStart: 12-31-2024 Hospital admissionDayton Children's Hospitaltart: 50-86-5673IkqrogdsjDayton Children's Hospitaltart: 12-27-2024 End: 60-52-2781Hbzdszi encounter procedureNOMS SWS OBComment on above:Third trimester (HHS-HCC); 36 weeks gestation of (HHS-HCC); Hemorrhoids, unspecified hemorrhoid type; Weight loss, abnormal; Polyhydramnios affecting in third trimester (HHS-HCC); Uterine contractions ([facility]); Urinary tract infection without hematuria, site unspecifiedStart: 12-22-2024 [facility] Hospitaltart: 83-37-0783FsbulqfxSumma Health Barberton Campustart: 12-22-2024 End: 97-73-2036Opcsdvy encounter jacmpyqbo54/19/2025 11:30 AM EDT Office Visit NOM[facility] [address] [place] [address] PCQD [facility] OBStart: 57-45-9855VomquxmebDayton Children's Hospitaltart: 12-19-2024 End: 60-62-5549Uyrgobg encounter procedureNOMS [facility] OBComment on above: screening for streptococcus B ([facility]-HCC); Third trimester ([facility]); 34 weeks gestation of ([facility]); Nonintractable headache, unspecified chronicity pattern, unspecified headache type; Poor weight gain of , second trimester (HHS-HCC); Hemorrhoids, unspecified hemorrhoid type; Weight loss, abnormal; Polyhydramnios affecting in third trimester (HHS-HCC)Start: 12-15-2024 [facility] Hospitaltart: 62-32-3556TgftpveuSumma Health Barberton Campustart: 12-12-2024 End: 70-87-1614Wwsyvpc encounter /09/2025 2:00 PM EDT Routine NOMS [facility] OB [address] [place] [phone] Megan Walker MD [address] [place] [address] NOMS SWS OBStart: 12-12-2024 End: 90-00-6193Urexcsqnoggr / ancillary services ykuxckpoqn04/09/2025 1:15 PM EDT Ancillary Procedure [facility] SWS OB [address] [place] [address] [phone] [facility] OBStart: 12-08-2024 End: 94-89-1231Syiswgh encounter cqbrqblyf16/11/2024 4:40 PM EDT [facility] Neurology Headache [facility] [address] [place] [address] [place] [address] [place] [address] consult for headaches referral in scan docsNeurology Headache [place] FHCComment on above:consult for headaches referral in scan docsStart: 12-05-2024 End: 28-88-1018Qqsspyz encounter vowifajvs30/02/2025 12:30 PM EDT Routine [facility]OM[facility] SWS OB [address] [place] [address] Megan Walker MD [address] [facility] [address] [place] [address] Third trimester ; 32 weeks gestation of ; Nonintractable headache, unspecified chronicity pattern, unspecified headache type; Hemorrhoids, unspecified hemorrhoid type; Poor weight gain of , second trimester; Weight loss, abnormal; Polyhydramnios affecting in third trimesterNOMS SWS OBComment on above:Third trimester ; 32 weeks gestation of ; Nonintractable headache, unspecified chronicity pattern, unspecified headache type; Hemorrhoids, unspecified hemorrhoid type; Poor weight gain of , second trimester; Weight loss, abnormal; Polyhydramnios affecting in third trimesterStart: 11-29-2024 End: 57-18-7507Itexvdj encounter znryyymkr15/27/2025 10:15 AM EDT Routine [facility] SWS OB [address] [place] [address] Megan Walker MD [address] [facility] [address] [place] [address] NOMS SWS OBStart: 76-34-6520WktwmrgkdDayton Children's Hospitaltart: 88-59-0548Lnfbjjnw admissionDayton Children's Hospitaltart: 11-21-2024 End: 11-40-7254Vldjxrq encounter /19/2025 12:30 PM EDT Routine [facility] SWS OB [address] [place] [address] Megan Walker MD [address] [place] [address] NOMS SWS OBStart: 11-21-2024 End: 67-88-2069Tioqboknpqrc / ancillary services nbqvmaveoz15/19/2025 11:45 AM EDT Ancillary Procedure [facility] SWS OB [address] [place] [address] FETK SWS OBStart: 10-17-2024 End: 88-42-7895Yalcegu encounter procedureMaternal MedicineComment on above:anatomyconsultStart: 87-46-6705Zdvaivoa admissionDayton Children's Hospitaltart: 10-15-2024 End: 21-00-3262NtoaenwsdDayton Children's Hospitaltart: 10-10-2024 End: 93-48-6714Udkcrmx encounter ydrpfjncz57/07/2025 10:00 AM EDT Routine [facility] OB [address] [place] [address] Megan Walker MD [address] [place] [address] NOMS SWS OBStart: 10-10-2024 End: 37-89-4710Ixrdfgqjhapl / ancillary services rxlozutkdo54/07/2025 9:30 AM EDT Ancillary Procedure [facility] SWS OB [address] [place] [address] LTVG [facility] OBStart: 17-47-2713RsyvqeeofDayton Children's Hospitaltart: 85-58-9557LefumOhioHealth Nelsonville Health Centertart: 56-36-2088Ucoqbvry admissionDayton Children's Hospitaltart: 09-28-2024 [facility] Hospitaltart: 64-20-4368Mmnfrjbg identified in Urine by [facility] Hospitaltart: 09-12-2024 End: 46-85-3870Ozqesoo encounter ydnaeiehj20/10/2025 8:45 AM EDT Routine [facility] SWS OB [address] [place] [phone] Megan Walker MD [address] [place] [address] NOMS SWS OBStart: 09-12-2024 End: 77-04-9251Gbgjjacmuemk / ancillary services rrogiywhfx25/10/2025 8:00 AM EDT Ancillary Procedure [facility] OB [address] [place] [address] TNDT SWS OBStart: 09-07-2024 End: 81-85-1823Alkegmp encounter procedureNOMS SWS OBComment on above:20 weeks gestation of ; Second trimester ; Weight loss, abnormal; Nonintractable headache, unspecified chronicity pattern, unspecified headache typeStart: 09-05-2024 End: 81-60-5240Daxqblrojvlu / ancillary services vanegnskdf86/03/2025 1:15 PM EST Ancillary Procedure [facility] SWS OB [address] [place] [address] IVAG [facility] OBStart: 08-11-2024 End: 57-09-9680Dvlocpj encounter cwsyllgkm55/06/2025 10:00 AM EST Routine [facility] S[facility] OB [address] [facility] [address] [place] [address] Megan Walker MD [address] [facility] [address] [place] [address] NOMS SWS OBStart: 07-27-2024 End: 28-58-2207Xqpypn-up kldpjhaox72/22/2025 3:00 PM EST Distance Health Diabetic Education [facility] [address] [place] [address] [place] [address] [place] [address] virtual MNT follow upDiabetic Education [facility] Rehabilitation Centeromment on above:virtual MNT follow upStart: 07-18-2024 End: 46-87-1393Mfgyckv encounter xiouvsmvc51/13/2025 3:30 PM EST Office Visit Endocrinology [facility] [address] [place] [address] Beth Allison APRN.YARD ASSOCIATE [address] [place], [place] [phone] (Work) Return in about 3 months (around 07/09/2024) for weight management.Endocrinology [facility] Centeromment on above:Return in about 3 months (around 07/09/2024) for weight management.Start: 07-14-2024 End: 62-79-5979Abtaxvbdko(R) Core PanelInheritest(R) Core Panel Lab Routine care, subsequent in first trimester Screening for genetic disease carrier status Expected: 07/14/2024 (Approximate), Expires: 07/14/2025 [facility] Work Phone: comment on above:Expected: 07/14/2024 (Approximate), Expires: 07/14/2025Start: 07-14-2024 End: 09-64-6212Qrpcvtxhp 21Maternity 21 Lab Routine care, subsequent in first trimester Screening for genetic disease carrier status Expected: 07/14/2024 (Approximate), Expires: 07/14/2025NOAL HealthcareComment on above:Expected: 07/14/2024 (Approximate), Expires: 07/14/2025Start: 07-14-2024 End: 95-28-4597vststnktolQFKJ SWS OBComment on above:12 weeks gestation of ; Encounter for supervision of normal first in first trimester; LGSIL of cervix of undetermined significance; Encounter for screening for cervical cancer; care, subsequent in first trimester; Screening for genetic disease carrier statusStart: 06-06-2024 End: 79-65-9239Yxqpfsji identified in Urine by CultureUrine culture Microbiology Routine Encounter for supervision of normal first in first trimester Expected: 06/06/2024 (Approximate), Expires: 06/06/2025[facility] HealthcareComment on above:Expected: 06/06/2024 (Approximate), Expires: 06/06/2025Start: 06-06-2024 End: 24-12-1753Evpkd type and Indirect antibody screen panel - BloodType and screen Lab Routine Encounter for supervision of normal first in first trimester Expected: 06/06/2024 (Approximate), Expires: 06/06/2025[facility] Healthcare Comment on above:Expected: 06/06/2024 (Approximate), Expires: 06/06/2025Start: 06-06-2024 End: 75-94-2577ARU W Auto Differential panel - BloodCBC and differential Lab Routine Encounter for supervision of normal first in first trimester Expected: 06/06/2024 (Approximate), Expires: 06/06/2025[facility] HealthcareComment on above:Expected: 06/06/2024 (Approximate), Expires: 06/06/2025Start: 06-06-2024 End: 09-86-9291Btrqqhaev B virus surface Ag [Presence] in Serum or Plasma by ImmunoassayHepatitis B surface antigen Lab Routine Encounter for supervision of normal first in first trimester Expected: 06/06/2024 (Approximate), Expires: 06/06/2025[facility] HealthcareComment on above:Expected: 06/06/2024 (Approximate), Expires: 06/06/2025Start: 06-06-2024 End: 54-04-5681Khclxlacq C virus Ab [Presence] in Serum or Plasma by Immunoassay Hepatitis C antibody Lab Routine Encounter for supervision of normal first in first trimester Expected: 06/06/2024 (Approximate), Expires: 06/06/2025[facility] HealthcareComment on above:Expected: 06/06/2024 (Approximate), Expires: 06/06/2025Start: 06-06-2024 End: 36-78-5564RFK-1/HIV-2 antigen/antibody combination immunoassayHIV-1 and HIV-2 antibodies Lab Routine Encounter for supervision of normal first in firsttrimester Expected: 06/06/2024 (Approximate), Expires: 06/06/2025[facility] HealthcareComment on above:Expected: 06/06/2024 (Approximate), Expires: 06/06/2025Start: 06-06-2024 End: 11-21-5885Yxtomq Ab [Presence] in Serum by RPRRPR Lab Routine Encounter for supervision of normal first in first trimester Expected: 06/06/2024 (Approximate), Expires: 06/06/2025[facility] HealthcareComment on above:Expected: 06/06/2024 (Approximate), Expires: 06/06/2025Start: 06-06-2024 End: 56-22-8185Bcndaly antibody, IgGRubella antibody, IgG Lab Routine Encounter for supervision of normal first in first trimester Expected: 06/06/2024 (Approximate), Expires: 06/06/2025[facility] HealthcareComment on above: Expected: 06/06/2024 (Approximate), Expires: 06/06/2025Start: 06-06-2024 End: 09-59-8582PPVNIEA TEST MISCELLANEOUS LABCORPSENDOUT TEST MISCELLANEOUS [facility] Lab Routine Encounter for supervision of normal first in first trimester Encounter for drug screening Expected: 06/06/2024 (Approximate), Expires: 06/06/2025[facility] HealthcareComment on above:Expected: 06/06/2024 (Approximate), Expires: 06/06/2025Start: 06-06-2024 End: 65-21-7919Fliamjghyp complete panel - UrineUrinalysis with microscopic Lab Routine Encounter for supervision of normal first in first trimester Expected: 06/06/2024 (Approximate), Expires: 06/06/2025[facility] Healthcare Work Phone: comment on above:Expected: 06/06/2024 (Approximate), Expires: 06/06/2025Start: 05-18-2024 End: 50-28-8575Exfvmax encounter /13/2024 4:30 PM EST Office Visit [facility] [address] [place] [address] Ying Reid NP [address] [place] [address] NOMS CWPhil FMStart: 04-27-2024 End: 79-39-4159tpxdcktwav89/23/2024 3:00 PM EDT [facility] Diabetic Education [facility] [address] [place], [place] [id number] [place] [address] [place], [place] [id number] Obesity, Class III, BMI 40-49.9 (morbid obesity) ([facility]) [E66.01]Diabetic Education [facility] Centeromment on above:Obesity, Class III, BMI 40-49.9 (morbid obesity) ([facility]) [E66.01]Start: 04-19-2024 End: 43-38-6249Uwlsfa Work04/19/2024 3:00 PM EDT Social Work NOMS [facility] [address] [place] [address] Liudmila Hadley, [facility] [address] [place] [address] NOMS [facility] BHStart: 04-13-2024 End: 35-42-0290Oahmbvx encounter laesdaaoc95/09/2024 2:45 PM EDT Office Visit NOMS [facility] OB [address] [place] [address] Megan Walker MD [address] [place] [address] NOMS SWS OBStart: 04-08-2024 End: 65-04-1805Tubfduk encounter procedureEndocrinology [facility] Comment on above:weight management fuanul1T/68 weight managementStart: 04-05-2024 End: 76-81-2938Hnnrkkb encounter procedureNOMS CI BHStart: 04-01-2024 End: 88-11-2103Lyiofkw encounter jwqjotlvs06/27/2024 10:40 AM EDT Office Visit Neurology [address] [place] [address] Dominguez Moreau Jr., [place] [address] [facility] [address] [place] [address] Paresthesia of foot, bilateralNeurologyComment on above:Paresthesia of foot, bilateralStart: 59-24-4551Ctpjw-19 Vaccine ( season)Covid-19 Vaccine ( season)[facility]: 39-66-2023Dnqnzrnur vaccinationInfluenza Vaccine (#1)[facility]: 03-02-2024 End: 12-12-3650Ueqqzz Work03/02/2024 3:00 PM EDT Social Work NOMS [facility] [address] [place] [address] Liudmila Hadley, [facility] [address] [place] [address] ArrivedNOMS SWS BHComment on above:ArrivedStart: 02-29-2024 End: 06-11-1421Xrwobok encounter dqlnxnbop49/26/2024 2:20 PM EDT Office Visit NOMS CWM FM [address] [place] [address] Ying Reid, CRISTINA [address] [place] [address] NOMS CWM FMStart: 02-25-2024 End: 82-70-2153Fzmwomx encounter /22/2024 9:30 AM EDT Office Visit NOMS CI BH [address] [place] [address] Emerald Cruz, CAN OPERATOR-FUEL STORAGE TECHNICIAN [address] [place] [address] Mood disorder (CMS/HCC)NOMS CI BHComment on above:Mood disorder (CMS/HCC)Start: 02-03-2024 End: 50-97-9950imyqcvejzv54/31/2024 8:15 AM EDT Results Only [facility] Laboratory [address] [place] [address] [facility] LaboratoryStart: 02-02-2024 End: 95-93-3816Qldqahla [Mass/volume] in Serum or Plasma --post dose dexamethasoneCORTISOL SUPRES POST Lab Routine Elevated testosterone level Expected: 02/02/2024, Expires: 05/03/2024leveland ClinicComment on above: Expected: 02/02/2024, Expires: 05/03/2024Start: 02-02-2024 End: 70-53-4734UCDENTOC BINDING GLOBULINCORTISOL BINDING GLOBULIN Lab Routine Elevated testosterone level Expected: 02/02/2024, Expires: 05/03/2024[facility] ClinicComment on above:Expected: 02/02/2024, Expires: 05/03/2024Start: 02-02-2024 End: 78-08-2653WVUMTZWGHKFZDOMJCRUODZTDZF Lab Routine Elevated testosterone level Expected: 02/02/2024, Expires: 05/03/2024[facility] ClinicComment on above: Expected: 02/02/2024, Expires: 05/03/2024Start: 02-01-2024 End: 36-62-9267owixojphmn83/29/2024 8:45 AM EDT Results Only [facility] [address] [place] [address] [facility]xWe[facility] LaboratoryStart: 01-28-2024 End: 67-05-4137Tzbit metabolic 2000 panel - Serum or PlasmaBASIC METABOLIC PANEL Lab Routine Irregular periods Expected: 01/28/2024, Expires: 01/27/2025 [facility] Work Phone: Comment on above:Expected: 01/28/2024, Expires: 01/27/2025Start: 01-28-2024 End: 37-30-9071Xbvfiulzgnnnp [Mass/volume] in PlasmaACTH BLD Lab Routine Irregular periods Expected: 01/28/2024, Expires: 04/28/2024[facility] Comment on above:Expected: 01/28/2024, Expires: 04/28/2024Start: 01-28-2024 End: 50-19-9080UMUH-S BLDDHEA-S BLD Lab Routine Irregular periods Expected: 01/28/2024, Expires: 01/27/2025[facility] ClinicComment on above:Expected: 01/28/2024, Expires: 01/27/2025Start: 01-28-2024 End: 92-93-7188Kgckkhwivk A1c in BloodHEMOGLOBIN A1C Lab Routine Irregular periods Expected: 01/28/2024, Expires: 01/27/2025[facility] ClinicComment on above:Expected: 01/28/2024, Expires: 01/27/2025Start: 01-28-2024 End: 76-70-7373Hkwaumlvc [Mass/volume] in Serum or PlasmaPROLACTIN Lab Routine Irregular periods Expected: 01/28/2024, Expires: 01/27/2025[facility] Comment on above:Expected: 01/28/2024, Expires: 01/27/2025Start: 01-28-2024 End: 62-06-7863Jcnmowyhttym [Mass/volume] in Serum or PlasmaTESTOSTERONE, TOTAL Lab Routine Irregular periods Expected: 01/28/2024, Expires: 01/27/2025[facility] ClinicComment on above:Expected: 01/28/2024, Expires: 01/27/2025Start: 27-78-9832Gypvd chest X-rayXR chest 2V*[facility]: 24-43-0598OlmwuqmamDayton Children's Hospitaltart: 08-18-2023 End: 30-24-3318Voljiae encounter lorjhkgzl21/13/2024 9:20 AM EST Office Visit NOMS OMID FM [address] [place] [address] Ying Reid NP [address] [place] [address] [facility] FMComment on above:ArrivedStart: 2023 Screening for malignant neoplasm of cervixGalion Community Hospitaltart: 03-06-2023 Covid-19 Vaccine ( season)Covid-19 Vaccine ( season) [facility]: 02-39-7746Frqaoshpa vaccinationInfluenza Vaccine (#1)[facility] HealthcareStart: 32-03-5435Bebul BMI ScreeningAdult BMI ScreeningUNC Health Blue Ridgetart: 42-93-1624Auzbfek ScreeningAnxiety ScreeningSelect Medical [facility] Start: 31-59-6209Sjeiimxmid ScreeningDepression ScreeningGalion Community Hospitaltart: 68-96-3220GP (Gonorrhea) Screening ()GC (Gonorrhea) Screening () [facility]: 82-59-9935Tmitoxguz C screeningHepatitis C Screening [facility]: 79-82-4971XGV screeningHIV ScreeningSelect Medical [facility]health Rehabilitation Hospital Start: 20-65-1114Ergztuaya for Chlamydia trachomatisChlamydia Screening () [facility]: 19-51-7713Tjbvltiuhhvdt B Vaccine (3 of 3 - Trumenba SCDM 3-Dose Series)Meningococcal B Vaccine (3 of 3 - Trumenba SCDM 3-Dose Series) [facility]: 57-15-1844Jgukhpngjmily B Vaccine: Consider Based On Risk (2 of 2 - Risk Trumenba 2-dose series)Meningococcal B Vaccine: Consider Based On Risk (2 of 2 - Risk Trumenba 2-dose series)[facility]: 2017 HPV Vaccine (1 - 3-dose series)HPV Vaccine (1 - 3-dose series)[facility] Start: 89-29-6825Amyo To Adult Transition Annual AssessmentPeds To Adult Transition Annual AssessmentGalion Community Hospitaltart: 22-48-5141Mgwhgsufit ScreeningDepression ScreeningUNC Health Blue Ridgetart: 09-79-2310Hdaz To Adult Transition Initial DiscussionPeds To Adult Transition Initial Discussion [facility]: 17-03-0495Biaruse ScreeningTobacco ScreeningCincinnati Children's Hospital Medical CenterAnion gap Shelby Memorial HospitalaPTT in Platelet poor plasma by Coagulation assayCleveland Clinic Hill[facility] Hospital Bacteria identified in Urine by CultureUrine culture Microbiology Routine 19 weeks gestation of Second trimester Leukocytes in urine Ordered: 08/31/2024[facility] [employer] Work Phone: comment on above:Ordered: 5Bacteria identified in Urine by CultureUrine culture Microbiology STAT 11/22/2024 12:50 AM [facility] [employer] Work Phone: bacteria identified in Urine by CultureUrine culture Microbiology STAT 12/15/2024 2:25 PM [facility] [employer] Work Phone: bacteria identified in Urine by CultureThree [facility] Healthcare Work Phone: comment on above:Ordered: 12/22/2024asophils [#/volume] in Blood by Automated [facility] Basophils/100 leukocytes in Blood by Automated [facility] End: 21-53-4653QS Adrenal gland WO and W contrast IVCT ADRENAL/PELVIS WO/W IVCON Radiology Routine Elevated testosterone level 1 Occurrences starting 02/02/2024 until 03/03/2025[facility] Work Phone: Comment on above:1 Occurrences starting 02/02/2024 until 03/03/2025T Adrenal gland WO and W contrast IVCT ADRENAL/PELVIS WO/W IVCON Radiology Routine Elevated testosterone level 02/16/2024 8:25 AM EDT [facility] Work Phone: Eosinophils/100 leukocytes in Blood by Automated count [facility]st HospitalErythrocyte distribution width [Ratio] by Automated [facility] HospitalErythrocytes [#/volume] in Blood [facility] Hill[facility]st HospitalGENITAL MYCOPLASMAS EDDIE, SWABGENITAL MYCOPLASMAS EDDIE, SWAB Pathology and Cytology Routine 19 weeks gestation of Secondtrimester Vaginal discharge Ordered: 08/31/2024[facility] HealthcareComment on above:Ordered: 08/31/2024GENITAL MYCOPLASMAS EDDIE, SWAB GENITAL MYCOPLASMAS EDDIE, SWAB Pathology and Cytology Routine 32 weeks gestation of Ordered: 12/05/2024[facility] HealthcareComment on above:Ordered: 12/05/2024Hematocrit [Volume Fraction] of BloodCleveland Clinic [facility] Hospital Hemoglobin [Mass/volume] in [facility] HospitalINR in Platelet poor plasma by Coagulation assayC[facility] Clinic Hillcrest Hospital Leukocytes [#/volume] corrected for nucleated erythrocytes in Blood by Automated counCleveland Clinic Hillcrest HospitalLeukocytes [#/volume] in BloodCleveland Clinic Hillcrest HospitalLymphocytes [#/volume] in Blood by Automated count [facility] HospitalLymphocytes/100 leukocytes in Blood by Automated countCleveland Clinic Hillcrest HospitalMCH [Entitic mass] by Automated countCleveland Clinic Hillcrest HospitalMCHC [Mass/volume] by Automated count [facility] HospitalMCV [Entitic volume] by Automated count [facility] HospitalMeasurement of glucose 1 hour after glucose challenge for glucose tolerance testGTT, 1 hour Lab Routine Second trimester 24 weeks gestation of Ordered: 10/10/2024[facility] Work Phone: comment on above:Ordered: 10/10/2024Monocytes [#/volume] in Blood by Automated countCleveland Clinic Hillcrest Hospital Monocytes/100 leukocytes in Blood by Automated [facility] HospitalNeutrophils [#/volume] in Blood by Automated [facility] HospitalNeutrophils/100 leukocytes in Blood by Automated [facility] HospitalNucleated erythrocytes [Presence] in Blood by Automated countCleveland Clinic Hillcrest HospitalNuSwab Vaginitis Plus (VG+)NuSwab Vaginitis Plus (VG+) Microbiology Routine 19 weeks gestation of Second trimester Vaginal discharge Ordered: 08/31/2024[facility] HealthcareComment on above:Ordered: 08/31/2024NuSwab Vaginitis Plus (VG+)NuSwab Vaginitis Plus (VG+) Microbiology Routine 32 weeks gestation of Ordered: 12/05/2024 [facility] Healthcare Work Phone: comment on above:Ordered: 12/05/2024Patient Education [facility] Work Phone: Patient referralUniversity Hospitals Geneva Medical Center Work Phone: Platelet mean volume [Entitic volume] in Blood by Automated [facility] HospitalPlatelets [#/volume] in Blood [facility] HospitalProthrombin time (PT)[facility]'s Hospitaltreptococcus pyogenes Ag [Presence] in Throat by Rapid immunoassayStrep B screen Microbiology Routine screening for streptococcus B ([facility]) Ordered: 12/19/2024[facility] Healthcare Work Phone: comment on above:Ordered: 12/19/2024 Immunizations Immunization DateImmunizationNotesCare AqikljybNqxrdawi61-26-8031bkkyjgvbn A vaccine, pediatric/adolescent dosage, 2 dose scheduleLisa Aichholz COAL BRIQUETTE MACHINE OPERATOR Work Phone: [facility] HealthcareCoydtjjekv60-80-1132ysmnndgxogsnd B vaccine, fully recombinantLisa Aichholz COAL BRIQUETTE MACHINE OPERATOR Work Phone: [facility] HealthcareMtvkhwrnbk50-45-6316ozifxupig A vaccine, pediatric/adolescent dosage, 2 dose scheduleLisa Aichholz COAL BRIQUETTE MACHINE OPERATOR Work Phone: [facility] HealthcareJhghurqtmt95-44-6110tlhskcaqmlwku B vaccine, fully recombinantLisa Aichholz COAL BRIQUETTE MACHINE OPERATOR Work Phone: [facility] HealthcareEkdgqaixyp71-35-0309yamzkkcoqeafn polysaccharide (groups A, C, Y and W-135) diphtheria toxoid conjugate vaccine (MCV4P)Ying Larahrasz COAL BRIQUETTE MACHINE OPERATOR Work Phone: [facility] HealthcareTeumcyjfru27-85-3052fxrbuekbfo, tetanus toxoids and acellular pertussis vaccineLisa Aichholz COAL BRIQUETTE MACHINE OPERATOR Work Phone: [facility] HealthcareHtfuokkxey70-40-9944sqrhpnwfno, tetanus toxoids and acellular pertussis vaccineLisa Aichholz COAL BRIQUETTE MACHINE OPERATOR Work Phone: [facility] HealthcareKrretawehj45-31-4415egmgfba, mumps and rubella virus vaccineLisa Aichholz COAL BRIQUETTE MACHINE OPERATOR Work Phone: [facility] HealthcareAvzsmpbbja18-33-1715nwcitonmlx vaccine, inactivatedLisa Aichholz COAL BRIQUETTE MACHINE OPERATOR Work Phone: [facility] HealthcareDjkaevkxje72-55-2096pvmjdiymh virus vaccineLisa Aichholz COAL BRIQUETTE MACHINE OPERATOR Work Phone: [facility] HealthcareTwibrbzmos60-93-2266kzoejaiko virus vaccineLisa Aichholz COAL BRIQUETTE MACHINE OPERATOR Work Phone: [facility] HealthcareKsctngrqby07-78-8901trevozl, mumps and rubella virus vaccineLisa Aichholz COAL BRIQUETTE MACHINE OPERATOR Work Phone: [facility] HealthcareWktycktdka48-44-5819blegcdpehf, tetanus toxoids and acellular pertussis vaccineLisa Aichholz COAL BRIQUETTE MACHINE OPERATOR Work Phone: [facility] HealthcareIzomxhhtda18-33-6943rpakzyjuguk influenzae type b vaccine, PRP-OMP conjugateLisa Aichholz COAL BRIQUETTE MACHINE OPERATOR Work Phone: [place] [address]Cazzydsfwa28-58-7830olghthcpi B vaccine, adult dosageLisa Aichholz COAL BRIQUETTE MACHINE OPERATOR Work Phone: [place] [address]Dtfvudbbtr48-66-6373upnjaiisw B vaccine, unspecified formulationFelicia Dea-Nossek CAN OPERATOR-FUEL STORAGE TECHNICIAN Work Phone: [place] [address]Ccnyibjmqr47-01-7185upseacxplivs conjugate vaccine, 13 valentLisa Aichholz COAL BRIQUETTE MACHINE OPERATOR Work Phone: [place] [address]Fkjlzkaezv99-59-6317auidhqmgxt vaccine, inactivatedLisa Aichholz COAL BRIQUETTE MACHINE OPERATOR Work Phone: [facility] HealthcareBtinwhaser84-47-1892trezhmuvmc, tetanus toxoids and acellular pertussis vaccineLisa Aichholz COAL BRIQUETTE MACHINE OPERATOR Work Phone: [facility] HealthcareBphafzjuqk13-01-6962bskouspbtdr influenzae type b vaccine, PRP-OMP conjugateLisa Aichholz COAL BRIQUETTE MACHINE OPERATOR Work Phone: [facility] HealthcareErqidggtac33-00-0687pcopgctxd B vaccine, adult dosageLisa Aichholz COAL BRIQUETTE MACHINE OPERATOR Work Phone: [facility] HealthcareCpllgvhmkp12-00-2890vpkzfdymm B vaccine, unspecified formulationFelicia Dea-Nossek CAN OPERATOR-FUEL STORAGE TECHNICIAN Work Phone: [facility] HealthcareQdxdgygiln42-93-1176cbyiyictijqk conjugate vaccine, 13 valentLisa Aichholz COAL BRIQUETTE MACHINE OPERATOR Work Phone: [facility] HealthcareQcwwixnbuq71-29-1530zobwkypteq vaccine, inactivatedLisa Aichholz COAL BRIQUETTE MACHINE OPERATOR Work Phone: [place] [address]Fcrkhulqkh49-87-0325huncenehkj, tetanus toxoids and acellular pertussis vaccineLisa Aichholz COAL BRIQUETTE MACHINE OPERATOR Work Phone: [facility] HealthcareWaifmxzwcg44-76-1403nfvdrmmcjed influenzae type b vaccine, PRP-OMP conjugateLisa Aichholz COAL BRIQUETTE MACHINE OPERATOR Work Phone: FTBarnes-Jewish Saint Peters HospitalOqxxgpghdg76-09-6936crqtzvecw B vaccine, adult dosageLisa Aichholz COAL BRIQUETTE MACHINE OPERATOR Work Phone: JQBarnes-Jewish Saint Peters HospitalCfxybxflyy89-83-2236uewwkruxx B vaccine, unspecified formulationFelicia Dea-Nossek CAN OPERATOR-FUEL STORAGE TECHNICIAN Work Phone: noBarnes-Jewish Saint Peters HospitalSbbtphcqar61-15-3878jmwyzkszgklc conjugate vaccine, 13 valentLisa Aichholz COAL BRIQUETTE MACHINE OPERATOR Work Phone: QMBarnes-Jewish Saint Peters HospitalAanpqchjbd78-34-3654xificfkabi vaccine, inactivatedLisa [facility] Hospitalholz COAL BRIQUETTE MACHINE OPERATOR Work Phone: [facility] Payers DatePayer CategoryPayerPolicy [id number] [id number] Managed Care - [employer] .[id number] Private Health [id number] [id number] [id number] 2024Self-pay2023[place] Blue Shield [id number].59849-82-2698Hrzwzov 1.2.840.690322.1.13.693.2.7.3.420817.93571-58-9177Evgv [facility] Managed Care - PPOANTHEM Member Subscriber Plan / Payer (Effective 2018-Present) Name: Shaneka Nugent Relation to Subscriber: Child Name: CRYSTAL NUGENT Date of : 1977 (Home) Address: [address] [place] [address] Payer ID: [id number] (NAIC) Type: Not on file Address: [facility] [address] [place] [id number] [id number] 2.0.1.437498.3.57[id number] 2.840.1.528066.3.57[id number] 2.0.1.525157.3.57[id number] 2.840.1.607206.3.57[id number] 2.840.1.566038.3.57[id number] 2.16.840.1.264175.3.57[id number] 2.16.840.1.023836.3.57[id number] 2.16.840.1.471612.3.57[id number] 2.16.840.1.952054.3.579.[id number] 2.16840.1.989552.3.57[id number] 2.16840.1.146497.3.57[id number] 2.16840.1.342669.3.57[id number] 2.16.840.1.620236.3.579.2.4[id number] 2.16840.1.657461.3.579.2.460008-96-5949Rgvqcgs4511306 2.16.840.1.592247.3.579.2.762012-93-1092Sfpnqzo0611264 2.16840.1.929247.3.579.2.384001-17-8003Ermrkud0199384 2.16.840.1.943536.3.57[id number] 2.16.840.1.868817.3.579.[id number] 2.16.840.1.590548.3.57[id number] 2.16.840.1.584708.3.579.[id number] 2..1.173328.3.579.2.590485-23-6471Osfaktz6775143 2..1.298510.3.57[id number] 2..1.160753.3.579.2.375932-83-1728Fmdejgc9625834 2..1.133243.3.579.2.514245-18-5113Wrushil6474138 2..1.707268.3.579.2.207702-46-0963Lajnplc0954206 2..1.276921.3.579.2.611790-04-6988Bgyoctb0809601 2..1.135085.3.579.2.766669-91-4799Gllqftg3087079 2..1.357850.3.579.2.766517-44-9687Nxluhgr0722227 2..1.476403.3.579.2.1259 1960UnknownAKH429M83217MedicaidParamount [id number] [id number]-[id number] Health [id number] 2..[id number] 2..1.994244.19 Hihozum92674270 2..1.552066.3.579.2.033Lpxferl52569365 2..1.6[id number] 2..1.760881.3.579.2.531 [id number] 2.16.840.1.2[id number] 2.16.840.1.4635[id number] 2.16.840.1.811477.3.579.2.531 [id number] 2.16.840.1.4[id number] 2.16.840.1.0[id number] 2.16.840.1.669679.3.579.2.531 [id number] 2.16.840.1.467898.3.579.2.870Tihnevd15536446 2.16.840.1.018527.3.579.2.021Rjbdual86971902 2.16840.1.661723.3.579.2.531 [id number] 2.16840.1.486159.3.579.2.531 Social History DateTypeDetailFacilityStart: 08-04-2023 End: 58-77-0745Vhu Assigned At BirthNOAL HealthcareStart: 11-26-2022 End: 87-95-3805Odrdqeu smoking status NHISNever smoked tobaccoNOMS Healthcare Start: 10-05-2018 End: 04-36-9256Jeiafqq use and exposureSmokeless tobacco non-userNOMS Healthcare Start: 66-71-6357Vczwuaq intakeLifetime non-drinker (finding)[facility] Start: 08-04-2023 End: 63-86-2676Ngqzfxb of Social functionNOMS HealthcareWithin the last year, have you been afraid of your partner or ex-partner?NoNOMS HealthcareAre you now , , , , never or living with a partner? Living with partnerNOMS HealthcareHow often to you have a drink containing alcohol?2-4 times a monthNOMS HealthcareHow many standard drinks containing alcohol do you have on a typical day?1 or 2NOMS HealthcareHow often do you have 6 or more drinks on 1 occasion?Less than monthlyNOMS HealthcareHow hard is it for you to pay for the very basics like food, housing, medical care, and heating Very hardNOMS HealthcareDo you feel stress - tense, restless, nervous, or anxious, or unable to sleep at night because yourmind is troubled all the time - these days [OSQ]To some extentNOMS Healthcare(I/We) worried whether (my/our) food would run out before (I/we) got money to buy more.Often trueNOMS Healthcare Start: 07-02-2015 End: 18-63-4533Fi the past 12 months, has lack of transportation kept you from medical appointments or from getting medications?NoNOMS HealthcareStart: 29-39-7686Gqoewff Commentcaffeine intake: occasionalNOMS HealthcareStart: 37-31-2571Eix Assigned At BirthFeCarney Hospital HealthcareStart: 68-61-3434Mfcwso identityIdentifies as female gender (finding)NOMS HealthcareStart: 11-19-2022 Sexual orientationHeterosexual (finding)NOMS HealthcareStart: 91-14-9494Ojw Assigned At BirthNot on fileGalion Community Hospitaltart: 02-25-2024 End: 90-85-1045Csioxbqyr beverage intakeCurrent drinker of alcohol (finding)NOMS HealthcareHow often to you have a drink containing alcohol?Monthly or lessNOMS HealthcareHow often do you have 6 or more drinks on 1 occasion?NeverNOMS HealthcareStart: 66-79-1604Yomdvej Commentcaffeine intake: daily either coffee or popNOMS HealthcareStart: 06-06-2024 End: 28-15-6126Mtzawyigp beverage intakeEx-drinker (finding)[facility] Start: 83-61-9936Zkkaqpk CommentCaffeine intake: 100 mg/dailyNOMS Healthcare Start: 63-26-2024OzdzbrpioZvvsysrtaDayton Children's Hospitaltart: 08-29-2024 Tobacco smoking status NHISSmoker (finding)[facility] Start: 02-08-2015 End: 15-28-6527JkiFzuafp (finding)[facility] Hospitaltart: 74-92-9669Infgqgl smoking status NHISUnknown if ever smokedRegional West Medical Centertart: 14-26-4528Qoncblb intakeAlcohol Use DetailsKeefe Memorial HospitalNEGATED: Highlighted rowStart: 93-93-9866Gjdxlew smoking status NHISUnknown if ever smokedKeefe Memorial HospitalNEGATED: Highlighted rowStart: 91-37-3139Zellkrx of tobacco useCurrent non-smokerKeefe Memorial Hospital Goals DatePatient GoalDesired Activity/State Functional Status NcmsYgucogqkmkRudseoIzpdnhxv63-92-8521Snqynehpjx statusPatient at Baseline [facility] Work Phone: [phone] score [AUDIT-C]1 02/25/2024 9:32 AM EDT Leslie Powers LPNNResearch Medical [id number] difficult have these problems made it for you to do your work, take care of things at home, or get along with other people?Not difficult at all 11/24/2023 10:04 AM EDT Thelma Gudino MA Not difficult at allThree Rivers [id number] Health Questionnaire 2 item (PHQ-2) [Reported][facility] Mental Status JfvyXbsliiufdkUuxmnzGyzrwzjh51-84-8243Wdjlziyxg functionCognitive Status [facility] at [facility]University [facility] Work Phone: Clinical Notes 05-16-2021 to 05-04-2025 Note Date & [id number] History of Present illness Narrative* Jose Barrow DPM - 05/04/2025 8:00 AM EDT [facility] VIS[facility] CC: Left great toe pain HPI:Shaneka Nugent is a 24 y.o. female who presents with complaint of left great toe pain of theleft foot. Patient states that pain has been present for a few weeks. Admits to increased pain withpressure to the area. + drainage and erythema noted to the area. Admits to history of ingrown toenail in the past. Denies any nausea, vomiting, fever, chills, shortness of breath, chest pain or calf pain noted. PCP: Lei Salmeron MD Medical History[1] Surgical History[2] Social History Tobacco Use Smoking status: Never Smokeless tobacco: Never Substance Use Topics Alcohol use: Not Currently Alcohol/week: 1.0 standard drink of alcohol Types: 1 Standard drinks or equivalent per week Comment: Caffeine intake: 100 mg/daily Family History[3] Current Medications[4] Lamictal [lamotrigine] Review of Systems: GENERAL: No weight loss, malaise or fevers. HEENT: Negative for frequent or significant headaches, vision changes, nose bleeds RESPIRATORY: Negative for cough, wheezing or shortness of breath. CARDIOVASCULAR: Negative for chest pain, leg swelling or palpitations. GI: Negative for abdominal discomfort, nausea, vomiting MUSCULOSKELETAL: +Left foot pain SKIN: +IGTN L Foot NEURO: Denies numbess, tingling or burning in feet Physical Exam: There were no vitals taken for this visit. Shaneka is a pleasant, cooperative, well developed 24 y.o. adult female. The patient is alert and oriented to time, place and person. She has normal affect and mood. Vascular: DP and PT pulses are palpable. CFT less than 3 seconds to all digits. Skin temperature iswarm to warm from proximal to distal. Hair growth is noted. Mild left hallux edema noted. No varicosities noted. Neuro: Light touch intact. Derm: Skin texture and turgor within normal limits. Incurvation noted to the lateral border of the 1st digit, left foot. There is serous drainage. There is no erythema beyond the immediate affected nail fold. No evidence of ascending cellulitis. Webspaces 1-4 clean, dry, intact. No rashes, subcutaneous nodules, or open lesions noted. Musculoskeletal/Orthopaedic: General foot morphology: Rectus. No gross digital deformity noted. Pain on palpation noted to the lateral border of the 1st digit, left foot. Assessment: Encounter Diagnoses Name Primary? Ingrown toenail Yes Left foot pain Plan: A comprehensive history and physical examination were performed. Patient was educated on clinical and radiographic findings, diagnosis and treatment plans. Patient states that she understands all that has been explained and all questions were answered to their apparent satisfaction. Patient was educated on possible treatment options for ingrown toenail. Patient was educated on temporary nail avulsion procedure to the left hallux lateral nail border. Patient was educated on details of procedure as well as medically reasonable risks, benefits and complications. Verbal consent was obtained. Patient elects to proceed. Please see procedure note below. Home going instructions were dispensed to patient. Follow up in 2 weeks. Jose Barrow DPM After a discussion of the options, the patient elects to proceed with a permanent nail avulsion procedure of the lateral border of the left hallux today under local digital block. The risks, benefits, potential complications, personnel present, and alternatives were discussed. The patient elected to proceed. Patient properly identified. Procedure site marked. A timeout was performed. A digital block of the left 1st digit was performed using a total of 6 cc of 1% Lidocaine plain. A tourniquet was then placed overlying the digit. After a betadine prep, a blunt elevator was used to free the offending nail border of the left 1st digit and a longitudinal sectioning was performed using an nail nipper. The offending portion of nail plate was avulsed. The nail border was then inspected to insure removal of entire offending nail plate and this was noted to be the case. Irrigation was then performed using copious amounts of alcohol. The tourniquet was then released and capillary refill to the digit was immediate. Bacitracin and dry sterile dressing was applied. Homegoing instructi ons were dispensed, including office and sheet rock installation helper contact numbers. [1] Past Medical History: Diagnosis Date Abnormal results of other endocrine function studies Allergic rhinitis 08/18/2023 Alopecia 08/18/2023 Anxiety Anxiety and depression 08/18/2023 meds in the past: sertraline, fluoxetine, trazodone, abilify Breakthrough bleeding on Nexplanon COVID-19 virus detected 06/19/2022 tested positive Depression 08/18/2023 Hirsutism Hyperinsulinemia Insomnia Mood disorder Morbid obesity with BMI of 40.0-44.9, adult ([facility]) Polycystic ovary syndrome Sleep difficulties Torus palatinus Polycystic Ovarian Disease; pt had seen home care and home health aides 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 Vitamin D deficiency [2] Past Surgical History: Procedure Laterality Date NO PAST SURGERIES OTHER SURGICAL HISTORY 08/2019 Nexplanon inserted (Dr Houston) [3] Family History Problem Relation Name Age of Onset Hypertension Mother Darby coreas Gout Mother Darby coreas Neuropathy Mother Darby coreas Depression Father J Luis Other (anxiety) Father J Luis Crohn's disease Father J Luis Hypotension Father J Luis No Known Problems Sister Ovarian cancer Maternal Grandmother Jacqui Cancer Maternal Grandmother Jacqui No Known Problems Maternal Grandfather Depression Paternal Grandmother Xena No Known Problems Paternal Grandfather Other (blood clots) Other paternal side [4] Current Outpatient Medications Medication Sig Dispense Refill buPROPion (Wellbutrin) 100 MG tablet Take 1 tablet (100 mg) by mouth in the morning and 1 tablet (100 mg) before bedtime. 60 tablet 1 FLUoxetine (PROzac) 20 MG capsule Take 20 mg by mouth Daily levonorgestrel-ethinyl estradiol (Nordette) 0.15-30 MG-MCG tablet Take 1 tablet by mouth Daily traZODone (Desyrel) 50 MG tablet Take 50 mg by mouth at bedtime aspirin 81 MG chewable tablet Chew 1 tablet (81 mg) Daily (Patient not taking: Reported on 05/04/2025) 30 tablet 11 ferrous sulfate (Fe Tabs) 325 (65 Fe) MG EC tablet Take 1 tablet (325 mg) by mouth in the morning. Take with meals. Do not crush, chew, or split. (Patient not taking: Reported on 05/04/2025) 30 tablet 11 magnesium oxide (Mag-Ox) 400 (240 Mg) MG tablet Take 400 mg by mouth at bedtime (Patient not taking: Reported on 05/04/2025) magnesium oxide (Mag-Ox) 400 MG tablet Take 1 tablet by mouth at bedtime (Patient not taking: Reported on 05/04/2025) NIFEdipine XL (Procardia XL) 30 MG 24 hr tablet Take 1 tablet (30 mg) by mouth Daily Do not crush, chew, or split. (Patient not taking: Reported on 05/04/2025) 5 tablet 0 Progesterone 200 MG suppository Insert 200 mg into the vagina at bedtime (Patient not taking: Reported on 05/04/2025) 30 suppository 2 No current facility-administered medications for this visit. documented in this [facility]10-30-2025 Instructions* Patient Instructions* Maria De Jesus Duarte MA - 05/04/2025 8:00 AM EDT POST-OPERATIVE NAIL AVULSION PATIENT INSTRUCTIONS Minimize your activity until the anesthesia wears off in about 2-8 hours. You may then increase your activity to tolerance. Avoid tight fitting shoes for the first 24-48 hours. Remove the bandage the day following surgery. If the bandage sticks to the operative site, soak the site in warm water. This should loosen the gauze and you may remove gently. Soak the operated toe in warm water and Epsom salts 2x/day for 15-20 minutes. Use 1-2 tablespoons of Epsom salts per quart of warm water. Soak daily until drainage stops. After soaking, apply antibiotic ointment to the operative area and cover with a cloth Band-Aid. If you experience pain, you may take Aspirin, Tylenol, Advil or Aleve providing that you have no allergies or intolerances to these medications. The operative toe is expected to have mild drainage and bleeding. The entire healing time varies for each patient. Average healing time is 2-4 weeks. If questions or problems arise, please call the office at [phone]. documented in this encounterThree Rivers [id number] History of Present illness Narrative* Encounter Date Complaint History Of Prese nt Illness dl dl [facility] Work Phone: [phone] Telephone encounter Note* Telephone Encounter - Nadeem Saeed - 03/13/2025 11:28 AM EDT Images from the original note were not included. Wegovy 0.25mg- NDC Not Payable [facility]09-08-2025 Miscellaneous Notes* Telephone Encounter - Nadeem Saeed - 03/13/2025 11:28 AM EDT Images from the original note were not included. Wegovy 0.25mg- NDC Not Payable documented in this encounter[facility] History of Present illness Narrative* Nakul Ruby MD - 03/01/2025 2:00 PM EDT Images from the original note were not included. [facility] POLY[facility] OVARIAN SYNDROME FOLLOW UP NOTE HPI: Shaneka Nugent is a 24 year old female presenting for follow up of PCOS. PRO: 02/06/25 Endocrine history: (copied from prior notes and updated) - Diagnosed with PCOS at age 15; diagnosis was later retracted and then confirmed again around 2022. - Menarche at age 11; initially regular menses, became irregular around age 14-15. - Reports oligomenorrhea, with 9-10 periods per year during adolescence- - Experienced amenorrhea for up to 3 months at a time after age 20. - Reports alopecia with phases of thinning and thickening hair. - Hirsutism-minimal mustache and abdominal hair. - Infertility- Difficulty conceiving; took 2 years to conceive child. h/o miscarriage in May 2023. Current child- approx 7 weeks NIH Criteria oligo/arovulation: yes, no evidence of hyperandrogenism: hirsutism and established biochemical evidence of hyperandrogenism other causes excluded: yes Weight Gain: - Significant weight gain over the past 4-5 years. - High school weight: 180-190 lbs; highest weight: 245 lbs. - Current weight: 221 lbs. - Lost 20 lbs between February and April of last year. - Weight fluctuated during ; lowest weight during was 210 lbs, highest was 230 lbs. - Reports weight gain after decreased milk production. - Tried various diets and increased physical activity with minimal success in weight loss. - Previously took Wellbutrin and naltrexone for weight loss with good results; stopped taking them after becoming . Interval history: - Previously attempted but switched to formula feeding recently - Expresses interest in starting oral contraceptive pills; previously used an unknown brand during teenage years. - Also expressed interest in starting weight loss medications, and spironolactone. - Recently diagnosed with depression and was started on Wellbutrin 100 BD ROS: No chest pain, palpitations History: PAST MEDICAL HISTORY: No past medical history on file. PAST SURGICAL HISTORY: No past surgical history on file. FAMILY HISTORY: No family history on file. SOCIAL HISTORY: Social History Tobacco Use Smoking status: Never MEDICATIONS: Current Outpatient Medications on File Prior to Visit Medication Sig aspirin 81 mg chewable tablet chew 1 tablet (81 mg) daily magnesium oxide (MAG-OX) 400 mg (241.3 mg magnesium) tablet Take 1 tablet by mouth daily at bedtime. naltrexone 50 mg tablet Take 1/2 tablet twice daily buPROPion (WELLBUTRIN) 75 mg tablet Take one tablet one daily for 7 days, then increase to one tablet twice daily. No current facility-administered medications on file prior to visit. ALLERGIES: ALLERGIES Allergen Reactions Metformin Diarrhea Lamotrigine Rash Metformin Physical Exam: [facility] 04/20/2017 03/01/25 1357 BP: 114/79 Pulse: 102 Weight: 101.2 kg (223 lb 1.7 oz) General: Awake, Alert, in no acute distress RS: No acute respi distress Neuro: AAOx3,no focal motor deficits or tremors Data: Diagnostic tests reviewed for today's visit: Latest Ref Rng 02/01/2024 Prolactin 4.5 - 26.8 ng/mL 23.8 Latest Ref Rn 02/01/2024 8.50 am Testosterone <40 ng/dL 75 (H) Latest Ref Rn 02/01/2024 DHEA-S 148.0 - 407.0 ug/dL 613.1 (H) Latest Ref Rng 02/01/2024 ACTH 7.2 - 63.3 pg/mL 31.1 Latest Ref Rng 02/03/2024 Cortisol,ON DEX,Post <1.8 ug/dL 0.4 Latest Ref Rng 02/03/2024 Dexamethasone ng/dL 315.4 Latest Ref Rng 02/03/2024 Cortisol Bind Glob, Serum 1.9 - 4.5 mg/dL 2.7 Component Ref Range & Units 10/05/18 TSH 0.37 - 6.00 uIU/mL 2.05 Resulting Agency [facility] 17-Hydroxyprogesterone (10/13/2023 3:04 PM EDT) Lab Results - 17-Hydroxyprogesterone (10/13/2023 3:04 PM EDT) 17-HYDROXYPROGESTERONE 33 ng/dL [facility] Imaging: Ct abd/pelvis 02/18/24 IMPRESSION: No adrenal lesion. Hepatic steatosis. No acute intra-abdominal or pelvic findings. Pelvis: No mass, ascites or fluid collection. A 1.4 cm enhancing lesion in the right adnexa likely represents a dominant follicle. Uterus and adnexa are unremarkable US pelvis/ transvaginal 09/08/23 FINDINGS: The uterus is normal in size, contour and echotexture measuring 7.9 x 4.9 x 3.0 cm. Normal color Doppler flow. The uterus is anteflexed. Endometrium measures 6.8 mm, normal. The right ovary is normal measuring 3.0 x 2.1 1.8 cm. Normal color and Doppler flow. Multiple peripheral subcentimeter follicles The left ovary is normal in size, contour and echotexture measuring 2.7 x 1.8 x 1.4 cm. Normal color Doppler flow. Multiple peripheral subcentimeter follicles Ferriman- Gallwey score Body Area Score (Dropdown: 0-4) Upper lip 2 Chin 0 Chest 0 Upper back 0 Lower back 0 Upper abdomen 0 Lower abdomen 2 Upper arms 0 Thighs 0 Total Score 4 Latest Reference Range & Units 02/14/25 11:26 Hemoglobin A1C 4.3 - 5.6 % 4.7 Estimated Average Glucose mg/dL 88 TSH 0.270 - 4.200 mIU/L 1.210 DHEA-S 148.0 - 407.0 ug/dL 452.2 (H) Testosterone, Total by MS 8.0 - 60.0 ng/dL 20.2 Testosterone, Free by ED-MS <=0.43 ng/dL 0.20 (H): Data is abnormally high Impression/Recommendations: Shaneka Nugent is a 24 year old female presenting today for follow up of PCOS 1. Polycystic ovarian syndrome (E28.2) - Diagnosis confirmed based on history of oligomenorrhea, hyperandrogenism (Ferriman-Gallwey score 4), elevated total testosterone (70 ng/dL). Also US findings of multiple ovarian follicles (images not reviewed), is consistent with this. Elevated DHEAS is most likely secondary to PCOS -Explained the multifaceted nature of PCOS and that, throughout a woman's life, each aspect needs to be addressed based on her concerns and goals. Her biggest concern was weight gain. - Discussed treatment options for hyperandrogenism (OCPs, spironolactone) and weight management; patient has h/o metformin intolerance. She would like to do pharmacological treatment for her weight management. Plan: - Start oral contraceptive pill to address unopposed estrogen and provide contraception. - Discussed prior use of spironolactone for hirsutism; advised to wait at least 1 month after starting OCP before resuming due to teratogenic risk. - Discussed weight management options: bupropion/naltrexone combination, phentermine/topiramate, and GLP-1 agonists (Wegovy, Zepbound); explained expected weight loss percentages, side effects. Not acandidate for phentermine/topiramate as this point as topiramate will worsen depression, and is teratogenic (will have to do double contraception if starting it). Recently started on Bupropion, so will wait before adding new medications. - Will start wegovy. No family h/o MEN or pancreatitis. - Will plan to get a glucose tolerance test to assess for prediabetes or diabetes at next visit. - Encouraged gradual increase in physical activity and continuation of healthy eating habits. RTC: Follow-up in 1 month to reassess and consider spironolactone initiation. Discussed with Attending Staff, Dr Elliott. Addendum to follow. Carole Gaston MD Clinical Fellow Endocrinology and Metabolism [place] [facility] STAFF PHYSICIAN NOTE OF PERSONAL INVOLVEMENT IN CARE I have reviewed the progress note obtained and documented by the fellow and I personally participated in the beverly components. I have discussed the case and management of the patient's care. The following comments revise or confirm relevant beverly components of their note. SIGNATURE: Nakul Pederson MD DATE of SERVICE: March 01, 2025 TIME of SERVICE: 2:47 PM documented in this encounter[facility]25 NoteHNO ID: [id number] Author: NAKUL RUBY MD Service: ? Author Type: Physician Type: Progress Notes Filed: 03/02/2025 04:48 Note Text: [facility] POLYCYST[facility] OVARIAN SYNDROME FOLLOW UP NOTE HPI: Shaneka Nugent is a 24 year old female presenting for follow up of PCOS. PRO: 02/06/25 Endocrine history: (copied from prior notes and updated) - Diagnosed with PCOS at age 15; diagnosis was later retracted and then confirmed again around 2022. - Menarche at age 11; initially regular menses, became irregular around age 14-15. - Reports oligomenorrhea, with 9-10 periods per year during adolescence- - Experienced amenorrhea for up to 3 months at a time after age 20. - Reports alopecia with phases of thinning and thickening hair. - Hirsutism-minimal mustache and abdominal hair. - Infertility- Difficulty conceiving; took 2 years to conceive child. h/o miscarriage in May 2023. Current child- approx 7 weeks NIH Criteria oligo/arovulation: yes, no evidence of hyperandrogenism: hirsutism and established biochemical evidence of hyperandrogenism other causes excluded: yes Weight Gain: - Significant weight gain over the past 4-5 years. - High school weight: 180-190 lbs; highest weight: 245 lbs. - Current weight: 221 lbs. - Lost 20 lbs between February and April of last year. - Weight fluctuated during ; lowest weight during was 210 lbs, highest was 230 lbs. - Reports weight gain after decreased milk production. - Tried various diets and increased physical activity with minimal success in weight loss. - Previously took Wellbutrin and naltrexone for weight loss with good results; stopped taking them after becoming . Interval history: - Previously attempted but switched to formula feeding recently - Expresses interest in starting oral contraceptive pills; previously used an unknown brand during teenage years. - Also expressed interest in starting weight loss medications, and spironolactone. - Recently diagnosed with depression and was started on Wellbutrin 100 BD ROS: No chest pain, palpitations History: PAST MEDICAL HISTORY: No past medical history on file. PAST SURGICAL HISTORY: No past surgical history on file. FAMILY HISTORY: No family history on file. SOCIAL HISTORY: Social History Tobacco Use Smoking status: Never MEDICATIONS: Current Outpatient Medications on File Prior to Visit Medication Sig aspirin 81 mg chewable tablet chew 1 tablet (81 mg) daily magnesium oxide (MAG-OX) 400 mg (241.3 mg magnesium) tablet Take 1 tablet by mouth daily at bedtime. naltrexone 50 mg tablet Take 1/2 tablet twice daily buPROPion (WELLBUTRIN) 75 mg tablet Take one tablet one daily for 7 days, then increase to one tablet twice daily. No current facility-administered medications on file prior to visit. ALLERGIES: ALLERGIES Allergen Reactions Metformin Diarrhea Lamotrigine Rash Metformin Physical Exam: LMP 04/20/2017 03/01/25 1357 BP: 114/79 Pulse: 102 Weight: 101.2 kg (223 lb 1.7 oz) General: Awake, Alert, in no acute distress RS: No acute respi distress Neuro: AAOx3,no focal motor deficits or tremors Data: Diagnostic tests reviewed for today's visit: Latest Ref Rng 02/01/2024 Prolactin 4.5 - 26.8 ng/mL 23.8 Latest Ref Rng 02/01/2024 8.50 am Testosterone <40 ng/dL 75 (H) Latest Ref Rng 02/01/2024 DHEA-S 148.0 - 407.0 ug/dL 613.1 (H) Latest Ref Rng 02/01/2024 ACTH 7.2 - 63.3 pg/mL 31.1 Latest Ref Rng 02/03/2024 Cortisol,ON DEX,Post <1.8 ug/dL 0.4 Latest Ref Rng 02/03/2024 Dexamethasone ng/dL 315.4 Latest Ref Rng 02/03/2024 Cortisol Bind Glob, Serum 1.9 - 4.5 mg/dL 2.7 Component Ref Range AND Units 10/05/18 TSH 0.37 - 6.00 uIU/mL 2.05 Resulting Agency [facility] 17-Hydroxyprogesterone (10/13/2023 3:04 PM EDT) Lab Results - 17-Hydroxyprogesterone (10/13/2023 3:04 PM EDT) 17-HYDROXYPROGESTERONE 33 ng/dL [facility] Imaging: Ct abd/pelvis 02/18/24 IMPRESSION: No adrenal lesion. Hepatic steatosis. No acute intra-abdominal or pelvic findings. Pelvis: No mass, ascites or fluid collection. A 1.4 cm enhancing lesion in the right adnexa likely represents a dominant follicle. Uterus and adnexa are unremarkable US pelvis/ transvaginal 09/08/23 FINDINGS: The uterus is normal in size, contour and echotexture measuring 7.9 x 4.9 x 3.0 cm. Normal color Doppler flow. The uterus is anteflexed. Endometrium measures 6.8 mm, normal. The right ovary is normal measuring 3.0 x 2.1 1.8 cm. Normal color and Doppler flow. Multiple peripheral subcentimeter follicles The left ovary is normal in size, contour and echotexture measuring 2.7 x 1.8 x 1.4 cm. Normal color Doppler flow. Multiple peripheral subcentimeter follicles Conrad (more content not included)...[facility]08-27-2025 Instructions* Patient Instructions* Carole Rollins MD - 03/01/2025 1:55 PM EDT - Begin a combined oral contraceptive pill (1 tablet daily) to manage your PCOS and provide effective contraception. - After you have taken the pill for 1 month, we will plan to start spironolactone 25 mg daily; haveyour potassium checked before you begin. - Continue your bupropion (Wellbutrin); contact the provider who prescribed it to confirm you should be taking 100 mg three times a day (300 mg total) as intended. - Initiate once-weekly semaglutide (Wegovy) injections at 0.25 mg; your prescription has been sent to [facility]. Plan to increase the dose every 4 weeks as tolerated to enhance weight-loss effects. . - Gradually increase your physical activity at home with walking and light resistance exercises. - Plan a virtual follow-up in 1 month to review your contraceptive use and begin spironolactone. - Arrange a brief virtual check-in in about 1 week to discuss insurance approval for the weight-loss medication and determine next steps. Thank you for choosing the [facility] Department of Endocrinology, Diabetes and Metabolism. Did you know that you need to call 48 hours in advance of your scheduled visit, if you are unable to make your appointment? The Endocrinology and Metabolism [place] thanks you for your commitment, because patients not showing to their appointment results in a lost opportunity for patients to receive world class health care at the [facility]. To Cancel an appointment, please choose one of the following: - Call the Appointment Call Center at [phone] - From [email or web address], Go to Appointments - Cancel Appts If cancelling, consider your need to reschedule to prevent further delays in your care. To Schedule an appointment, please choose one of the following: - Call the Appointment Call Center at [phone] - From [facility], Go to Appointments - Request an Appt documented in this encounter[facility]08-[facility]-2025 History of Present illness Narrative* Megan Walker MD - 02/14/2025 10:15 AM EDT Images from the original note were not included. Megan Walker MD Obstetrics and Gynecology Patient: Shaneka Nugent : 2000 (24 y.o.) Yearly Wellness Exam Date: 02/14/2025 Shaneka Nugent is a 24 y.o. female who presents for a visit. She is 6 weeks and 2 days following a spontaneous vaginal delivery. I have fully reviewed the and intrapartum course. The delivery was at 36 gestational weeks and 5 days. Anesthesia: epidural. Baby is feeding by bottle - neosure. Bleeding moderate lochia. Bowel function is normal. Bladder function is normal. Patient is not sexually active. Contraception method is none. depression screening: positive. Pap 07/2024 History of Present Illness History of Present Illness Karen is a patient who is currently six weeks and recently stopped due to stress. She presents for follow-up and discussion of control options. The patient reports stopping about a week ago due to stress. She mentions having a lot of stress at home, . This situation appears to be causing significant distress and may be contributing to her current mental health status. Her depression score is noted to be high, although she states, I'm okay. Regarding her medical history, the patient was previously taking bupropion and naltrexone to help with weight loss, which she reports worked well. She is currently not on any control and is awaiting blood work to check her hormone levels, particularly testosterone. The patient has a history of an abnormal Pap smear. The patient denies wanting to see a therapist at this time. She mentions an upcoming appointment with an home care and home health aides teacher. Gynecologic History Patient's last menstrual period was 04/19/2024. Contraception: none Last Pap: 07/14/24 Results: normal History of abnormal Pap smear: yes - LGSIL 09/14/23 Last Mammogram: No history /na Obstetric History : 2 Para: 1 AB: 1 1 LMP 04/19/2024 Review of Systems All other systems reviewed and are negative. Current Outpatient Medications: aspirin 81 MG chewable tablet, Chew 1 tablet (81 mg) Daily, Disp: 30 tablet, Rfl: 11 ferrous sulfate (Fe Tabs) 325 (65 Fe) MG EC tablet, Take 1 tablet (325 mg) by mouth in the morning.Take with meals. Do not crush, chew, or split., Disp: 30 tablet, Rfl: 11 magnesium oxide (Mag-Ox) 400 (240 Mg) MG tablet, Take 400 mg by mouth at bedtime, Disp: , Rfl: magnesium oxide (Mag-Ox) 400 MG tablet, Take 1 tablet by mouth at bedtime, Disp: , Rfl: NIFEdipine XL (Procardia XL) 30 MG 24 hr tablet, Take 1 tablet (30 mg) by mouth Daily Do not crush,chew, or split., Disp: 5 tablet, Rfl: 0 Progesterone 200 MG suppository, Insert 200 mg into the vagina at bedtime, Disp: 30 suppository, Rfl: 2 Allergies Allergen Reactions Lomitapide Other Lamictal [Lamotrigine] Rash Social History Tobacco Use Smoking Status Never Smokeless Tobacco Never Objective Physical Exam Constitutional: Appearance: Normal appearance. HENT: Head: Normocephalic and atraumatic. Neurological: Mental Status: She is alert and oriented to person, place, and time. Psychiatric: Mood and Affect: Mood normal. Behavior: Behavior normal. Assessment/Plan Diagnoses and all orders for this visit: care following vaginal delivery ([facility]) 44 day exam. Pap smear not done at today's visit. 1. Contraception: none per Endocrinology on 02/13 2. Endocrinology will Rx control and weight loss drug 3. Follow up in: 6 weeks or as needed. 1. Depression Assessment: Patient reports high stress levels at home, particularly related to clxzzk-hm-cek issues. Depression screening score is elevated, raising concerns about the severity of her depressive symptoms. Patient denies need for immediate intervention, attributing symptoms to current life stressors. Plan: - Offered referral to therapist, which patient declined at this time - Recommend close monitoring of depressive symptoms - Encourage patient to prioritize self-care 2. Contraception Assessment: Patient is 6 weeks and seeking control options. Currently menstruating, which may affect the timing of contraception initiation. Patient's weight (>200 lbs) impacts efficacy of certain methods. Previously used bupropion and naltrexone for weight loss with good results. Plan: - Discussed various contraceptive options: - Depo-Provera (noted potential for weight gain) - Contraceptive patch (less effective for patients >200 lbs) - Vaginal ring (monthly insertion) - Advised to start control while menstruating for immediate effectiveness - Will send additional contraceptive information via lightt - Defer final decision pending endocrinology consultation and hormone level results 3. Abnormal Pap Smear Assessment: Patient has a history of abnormal Pap smear, requiring follow-up. Plan: - Schedule follow-up Pap smear in July OC prescription per Endo Assessment & Plan documented in this encounterThree Rivers [id number] History of Present illness Narrative* Ying Reid NP - 02/13/2025 5:24 PM EDTAssociated Problem(s): Obesity, morbid, BMI 40.0-49.9 (CMS-HCC) Discussed with patient their BMI (actual, verses recommended). We have also discussed lifestyle modifications: attempts to perform physical activity as chronic conditions allow, also to monitor dietary intake: increasing protein/fruits/veggies and lowering carb intake (unless contraindicated). Limit sodas, juices, and sugary drinks. * Ying Reid NP - 02/13/2025 5:23 PM EDTAssociated Problem(s): Major depression, recurrent Hx of depression/anxiety, has been off meds for a bit Recent new born approx 6 weeks ago She denies SI/HI Feels she would like to get back on something, would like wellbutrin as she will be going back to endo to hopefully start contrave again Would like to start on wellbutrin Is no longer Take medication only as directed. This medication will take approximately 4-6 weeks to become effective. If any suicidal thoughts, thoughts of hurting others, or hallucinations contact the office or proceed to the Emergency Room for mental health evaluation. Medication may cause dry mouth, dizziness, and in some cases worsening in depression symptoms. Please contact the office if these occur. * THELMA GUDINO - 02/13/2025 4:15 PM EDT Itchiness in areas constantly fluctuating areas started about 3 days ago * Ying Reid NP - 02/13/2025 4:15 PM EDT Images from the original note were not included. Shaneka Nugent is a 24 y.o. female presents with chief complaint of Care (depression) HPI: Depression Visit Type: follow-up Patient presents with the following symptoms: anhedonia, depressed mood, excessive worry, fatigue, irritability and nervousness/anxiety. Patient is not experiencing: palpitations, shortness of breath, suicidal ideas, suicidal planning, thoughts of , weight gain and weight loss. Frequency of symptoms: most days Severity: moderate Sleep quality: fair SUBJECTIVE: MEDICATIONS: Current Outpatient Medications Medication Instructions aspirin 81 mg, Oral, Daily ferrous sulfate (FE TABS) 325 mg, Oral, Daily with breakfast, Do not crush, chew, or split. magnesium oxide (Mag-Ox) 400 MG tablet 1 tablet, Nightly magnesium oxide (MAG-OX) 400 mg, Nightly NIFEdipine XL (PROCARDIA XL) 30 mg, Oral, Daily, Do not crush, chew, or split. Progesterone 200 mg, Vaginal, Nightly ALLERGIES: Allergies Allergen Reactions Lomitapide Other Lamictal [Lamotrigine] Rash REVIEW OF SYMPTOMS: Review of Systems Constitutional: Positive for irritability. Negative for appetite change, chills, fever, weight gainand weight loss. HENT: Negative for congestion, ear pain and sore throat. Eyes: Negative for pain, discharge, redness and [...] dizziness, tremors, seizures, syncope and headaches. Psychiatric/Behavioral: Positive for depression. Negative for behavioral problems, self-injury and suicidal ideas. Agitation: depression.The patient is nervous/anxious. Hematological: Does not bruise/bleed easily. Endocrine: Negative for polydipsia, polyphagia and polyuria. Allergic/Immunologic: Negative for environmental allergies and food allergies. PAST MEDICAL HISTORY Past Medical History: Diagnosis Date Abnormal results of other endocrine function studies Allergic rhinitis 08/18/2023 Alopecia 08/18/2023 Anxiety Anxiety and depression 08/18/2023 meds in the past: sertraline, fluoxetine, trazodone, abilify Breakthrough bleeding on Nexplanon COVID-19 virus detected 06/19/2022 tested positive Depression 08/18/2023 Hirsutism Hyperinsulinemia Insomnia Mood disorder Morbid obesity with BMI of 40.0-44.9, adult ([facility]) Polycystic ovary syndrome Sleep difficulties Torus palatinus Polycystic Ovarian Disease; pt had seen home care and home health aides 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 Vitamin D deficiency Past Surgical History: Procedure Laterality Date NO PAST SURGERIES OTHER SURGICAL HISTORY 08/2019 Nexplanon inserted (Dr Houston) family history includes Cancer in her maternal grandmother; Crohn's disease in her father; Depression in her father and paternal grandmother; Gout in her mother; Hypertension in her mother; Hypotension in her father; Neuropathy in her mother; No Known Problems in her maternal grandfather, paternal grandfather, and sister; Ovarian cancer in her maternal grandmother; anxiety in her father; blood clots in an other family member. OBJECTIVE: Visit Vitals BP 118/88 (BP Location: Left arm, Patient Position: Sitting, BP Cuff Size: Adult long) Pulse 94 Temp 98.6 F (Temporal) Resp 18 Wt 221 lb 12.8 oz LMP 04/19/2024 SpO2 96% BMI 40.57 kg/m OB Status Smoking Status Never BSA 2.1 m Physical Exam Vitals and nursing note reviewed. Constitutional: General: She is not in acute distress. Appearance: Normal appearance. HENT: Head: Normocephalic and atraumatic. Right Ear: External ear normal. Left Ear: External ear normal. Nose: Nose normal. Mouth/Throat: Mouth: Mucous membranes are moist. Eyes: Extraocular Movements: Extraocular movements intact. Conjunctiva/sclera: [...] Normal range of motion and neck supple. Right lower leg: No edema. Left lower leg: No edema. Skin: General: Skin is warm and dry. [...] file. Problem List Items Addressed This Visit Obesity, morbid, BMI 40.0-49.9 ([facility]) Discussed with patient their BMI (actual, verses recommended). We have also discussed lifestyle modifications: attempts to perform physical activity as chronic conditions allow, also to monitor dietary intake: increasing protein/fruits/veggies and lowering carb intake (unless contraindicated). Limit sodas, juices, and sugary drinks. Major depression, recurrent - Primary Hx of depression/anxiety, has been off meds for a bit Recent new born approx 6 weeks ago She denies SI/HI Feels she would like to get back on something, would like wellbutrin as she will be going back to endo to hopefully start contrave again Would like to start on wellbutrin Is no longer Take medication only as directed. This medication will take approximately 4-6 weeks to become effective. If any suicidal thoughts, thoughts of hurting others, or hallucinations contact the office or proceed to the Emergency Room for mental health evaluation. Medication may cause dry mouth, dizziness, and in some cases worsening in depression symptoms. Please contact the office if these occur. Relevant Medications buPROPion (Wellbutrin) 100 MG tablet documented in this [facility]08-11-2025 Instructions* Patient Instructions* Ying Reid NP - 02/13/2025 4:15 PM EDT Start with buproprion 100mg twice a day Take medication only as directed. This medication will take approximately 4-6 weeks to become effective. If any suicidal thoughts, thoughts of hurting others, or hallucinations contact the office or proceed to the Emergency Room for mental health evaluation. Medication may cause dry mouth, dizziness, and in some cases worsening in depression symptoms. Please contact the office if these occur. documented in this [facility]08-04-2025 NoteHNO ID: [id number] Author: ALL BELL MD Service: ? Author Type: Fellow Type: Progress Notes Filed: 02/10/2025 12:57 Note Text: [facility] POLYCYSTIC OVARIAN SYNDROME INITIAL CONSULT Consultation requested by Beth Allison APRN.YARD ASSOCIATE HPI: Shaneka Nugent is a 24 year old female presenting as a new patient to me for evaluation of hyperandrogenism. Elevated Testosterone and DHEAS: - Last blood work was last year. - Elevated testosterone and DHEAS levels noted. - Denies significant hirsutism; minimal mustache and abdominal hair. - No significant acne. - Family history of thyroid cancer (maternal aunt) and ovarian cancer (maternal grandmother). PCOS: - Diagnosed with PCOS at age 15; diagnosis was later retracted and then confirmed again within the last 2 years. - Menarche at age 11; initially regular menses, became irregular around age 14-15. - Reports oligomenorrhea, with 9-10 periods per year during adolescence- - Experienced amenorrhea for up to 3 months at a time after age 20. - No ultrasounds performed for PCOS diagnosis as per patient - Reports alopecia with phases of thinning and thickening hair. - History of using oral contraceptive pills and Nexplanon for control; currently not using any contraception. - Denies current desire for another . Infertility: - Difficulty conceiving; took 2 years to conceive current child. - One miscarriage in May 2023. - Conceived naturally. Recent and : - Gave 5 weeks ago. - Initially had good milk production, now producing less than 1 oz every 2 hours. Weight Gain: - Significant weight gain over the past 4-5 years. - High school weight: 180-190 lbs; highest weight: 245 lbs. - Current weight: 221 lbs. - Lost 20 lbs between February and April of last year. - Weight fluctuated during ; lowest weight during was 210 lbs, highest was 230 lbs. - Reports weight gain after decreased milk production. - Tried various diets and increased physical activity with minimal success in weight loss. - Previously took Wellbutrin and naltrexone for weight loss with good results; stopped taking them after becoming . - Planning to join a gym and lose weight through lifestyle changes and medication if necessary. NIH Criteria oligo/arovulation: yes, no evidence of hyperandrogenism: hirsutism and established biochemical evidence of hyperandrogenism other causes excluded: yes ROS: Core Review of Systems (Submitted on 02/04/2025) Fever : No Night sweats: No Recent unintentional weight change: No Nasal Congestion: No Hearing Loss: No Vision Disturbance: No A cough: No Difficulty Breathing?: No Chest pain: No Irregular heartbeat: No Leg Swelling: No Nausea: No Diarrhea: No Black tarry stools: No Difficulty Urinating?: No Awaken at Night More Than Once to Urinate?: Yes Joint pain or stiffness: No Muscle aches: No Leg or Foot Discomfort at Night?: No A rash: No Dizziness: No Headaches: Yes Memory Loss: No Seizures: No History: PAST MEDICAL HISTORY: No past medical history on file. PAST SURGICAL HISTORY: No past surgical history on file. FAMILY HISTORY: No family history on file. SOCIAL HISTORY: Social History Tobacco Use Smoking status: Never MEDICATIONS: Current Outpatient Medications on File Prior to Visit Medication Sig aspirin 81 mg chewable tablet chew 1 tablet (81 mg) daily magnesium oxide (MAG-OX) 400 mg (241.3 mg magnesium) tablet Take 1 tablet by mouth daily at bedtime. naltrexone 50 mg tablet Take 1/2 tablet twice daily buPROPion (WELLBUTRIN) 75 mg tablet Take one tablet one daily for 7 days, then increase to one tablet twice daily. No current facility-administered medications on file prior to visit. ALLERGIES: ALLERGIES Allergen Reactions Metformin Diarrhea Lamotrigine Rash Metformin Physical Exam: BP 120/83 Pulse 85 Wt 100.6 kg (221 lb 12.5 oz) Unknown BMI 39.25 kg/m? General: Awake, Alert, in no acute distress RS: No acute respi distress Abdomen: no purplish striae >1 cm Neuro: AAOx3,no focal motor deficits or tremors Skin: warm to touch Data: Diagnostic tests reviewed for today's visit: Latest Ref Rng 02/01/2024 Prolactin 4.5 - 26.8 ng/mL 23.8 Latest Ref Rng 02/01/2024 8.50 am Testosterone <40 ng/dL 75 (H) Latest Ref Rn 02/01/2024 DHEA-S 148.0 - 407.0 ug/dL 613.1 (H) Latest Ref Rng 02/01/2024 ACTH 7.2 - 63.3 pg/mL 31.1 Latest Ref Rng 02/03/2024 Cortisol,ON DEX,Post <1.8 ug/dL 0.4 Latest Ref Rng 02/03/2024 Dexamethasone ng/dL 315.4 Latest Ref Rng 02/03/2024 Cortisol Bind Glob, Serum 1.9 - 4.5 mg/dL 2.7 Component Ref Range AND Units 10/05/18 TSH 0.37 - 6.00 uIU/mL 2.05 Resulting Agency [facility] 17-Hydroxyprogesterone (10/13/2023 3:04 PM EDT) Lab Results - 17-Hydroxyprogeste (more content not included)...[facility]08-01-2025 Evaluation note* Diagnosis Onset Date Resolution Status Admit Date Contact dermatitis acuteAugust 2024 10:34amGAD (generalized anxiety disorder)acuteSeptember 2024 5:58pmMajor depression, recurrentacuteSeptember 2024 5:58pm Obesity, morbid, BMI 40.0-49.9acuteSeptember 2024 5:58pm [facility] Work Phone: 1(673) 823-879908-01-2025 Evaluation note* Diagnosis Onset Date Resolution Status Admit Date Contact dermatitis acuteAugust 2024 10:34amGAD (generalized anxiety disorder)acuteSeptember 2024 5:58pmMajor depression, recurrentacuteSeptember 2024 5:58pm Obesity, morbid, BMI 40.0-49.9acuteSeptember 2024 5:58pmStrain of lumbar regionnoneactiveOctober 2024 4:05pmAnxiety and depressionacuteOctober 2024 3:20pmObesity, morbid, BMI 40.0-49.9acuteOctober 2024 3:20pm [facility] Work Phone: 1(538) 778-843407-28-2025 History of Present illness Narrative* Megan Walker MD - 01/30/2025 5:03 PM EDT Requests [id number] documented in this encounterThree Rivers [id number] [place] [address] GENETICS NURSE Progress Note Signed Patient: Shaneka Nugent MR#: [id number] : 2000 Acct:[id number] Age/Sex: 24 / F Adm Date: 5 Loc: Room: [address] [place] [address] Type: ADM IN Attending Dr: Brock Trejo MD Copies to: ~ Date of Service: 01/03/2025 OB - PN: Subj Subjective Post Delivery Day #: Day 2 Patient comments: no complaints [place] baby status: doing well feeding status: pumping and bottle feeding OB - PN: Obj Exam Physical Exam Vital signs: Vital Signs - 8 hr 01/03/25 09:07 Temperature 98.0 F Pulse Rate 83 Respiratory Rate 18 Blood Pressure 124/75 02 Sat by Pulse Oximetry 99 Oxygen Delivery Method Room Air Constitutional Constitutional: no acute distress and cooperative HEENT Exam Head: Present normocephalic and atraumatic ENT: Present mucous membranes moist Respiratory Exam Respiratory: Present CTA bilaterally; Absent accessory muscle use Cardiovascular Exam Cardiovascular: Present RRR, S1 and S2; Absent murmur Abdominal Exam Abdominal: Present soft; Absent distended or guarding Fundus: Present firm (U=0) Extremities Exam Extremities: Present edema (2+ lower extremity pitting edema bilaterally); Absent cyanosis, palpable cord or Obdulia's sign Skin Exam Skin: Present intact, dry and warm; Absent rash Neurological Exam Neurological: Present alert, oriented X3 and normal speech Psychiatric Exam Psychiatric: Present normal affect Urinary Catheter Management Urethral (Alvarado): Cath placed during this visit: no OB - PN: Obj Data Labs 01/01/25 07:07 Labs: 12/31/24 11:20: RPR w/Rflx to Titer Non reactive, Syphilis Interpret Comment Assessment/Plan Assessment (1) Status post vaginal delivery: Plan: See discharge instruction sheet (2) anemia: Plan: Rx ferrous sulfate 3 and 25 mg once daily along with her vitamin Plan day: 2 Vaginal delivery plan (if applicable): routine care, discharge home and follow up 6 weeks Documented By: Tevin Gregg DO 01/03/25 1152 Signed By: 01/03/25 1154 [facility]06-30-2025 Progress note Author Shayy Juan [facility] HospitalNote Date/TimeJune 2024 10:[address] [place] [address] GENETICS NURSE Progress Note Signed Patient: Shaneka Nugent MR#: [id number] : 2000 Acct:[id number] Age/Sex: 24 / F Adm Date: 5 Loc: Room: [address] [place] [address] Type: ADM IN Attending Dr: Brock Trejo MD Copies to: ~ Date of Service: 01/02/2025 OB - PN: Subj Subjective Post Delivery Day #: Day 1 Interval history: Patient doing well, no concerns. Bleeding slowing, pain minimal. Voiding withoutdifficulty. Patient comments: no complaints [place] baby status: doing well OB - PN: Obj Exam Constitutional Constitutional: no acute distress Respiratory Exam Respiratory: Absent accessory muscle use Cardiovascular Exam Cardiovascular: Present RRR Abdominal Exam Abdominal: Present soft; Absent tenderness, distended or rebound Fundus: Present firm Extremities Exam Extremities: Present full ROM; Absent cyanosis Urinary Catheter Management Urethral (Alvarado): Cath placed during this visit: no OB - PN: Obj Data Labs 01/01/25 07:07 Assessment/Plan Assessment (1) Status post vaginal delivery: Plan Continue care Plan day: 1 Vaginal delivery plan (if applicable): routine care Documented By: Shayy Juan DO 01/02/25 10 07 Signed By: <Electronically signed by Shayy Juan, DO> 01/02/[address] [place] [address] Work Phone: 1(338) 641-516406-30-2025 [place] [address] GENETICS NURSE Progress Note Signed Patient: Shaneka Nugent MR#: [id number] : 2000 Acct:[id number] Age/Sex: 24 / F Adm Date: 5 Loc: Room: [address] [place] [address] Type: ADM IN Attending Dr: Brock Trejo MD Copies to: ~ Date of Service: 01/02/2025 OB - PN: Subj Subjective Post Delivery Day #: Day 1 Interval history: Patient doing well, no concerns. Bleeding slowing, pain minimal. Voiding withoutdifficulty. Patient comments: no complaints [place] baby status: doing well OB - PN: Obj Exam Constitutional Constitutional: no acute distress Respiratory Exam Respiratory: Absent accessory muscle use Cardiovascular Exam Cardiovascular: Present RRR Abdominal Exam Abdominal: Present soft; Absent tenderness, distended or rebound Fundus: Present firm Extremities Exam Extremities: Present full ROM; Absent cyanosis Urinary Catheter Management Urethral (Alvarado): Cath placed during this visit: no OB - PN: Obj Data Labs 01/01/25 07:07 Assessment/Plan Assessment (1) Status post vaginal delivery: Plan Continue care Plan day: 1 Vaginal delivery plan (if applicable): routine care Documented By: Shayy Juan DO 01/02/25 10 07 Signed By: 01/02/[address] [place], [place] 6676206-29-2025 [place] [id number] OB Delivery Note Signed Patient: Shaneka Nugent MR#: [id number] : 2000 Acct:[id number] Age/Sex: 24 / F Adm Date: 5 Loc: 3E Room: 1A6973-0 Type: ADM IN Attending Dr: Brock Trejo MD Copies to: NON STAFF BROCK TREJO MD~ OB: Delivery DATE/TIME OF PROCEDURE Date of Service: 01/01/2025 Time of Service: 00:23 PRE OP DIAGNOSIS 36 week healthy primigravida PROM POST OP DIAGNOSIS same SURGEON Brock Trejo MD PROCEDURE PERFORMED Type of Delivery: Vaginal ANESTHESIA Anesthesia Type: Epidural EBL 300cc GROSS FINDINGS viable male PROCEDURE DISCUSSION 36 week healthy primigravida with PROM....cytotec ind of labor....pit aug....epidural.......2nddeg vag/perineal lac with repair....1st deg periurethral lac w/ repair....placenta spont/whole/intact Documented By: BROCK TREJO MD 01/01/2522 Signed By: 01/01/2524 [facility]2025 Evaluation note* Diagnosis Onset Date Resolution Status Admit Date anemia acuteJune 2024 10:17amStatus post vaginal deliveryacuteJune 2024 10:17am [facility] Work Phone: 1(711) 760-946206-28-2025 Evaluation note* Diagnosis Onset Date Resolution Status Admit Date anemia acuteJune 2024 10:17amStatus post vaginal deliveryresolvedJune 2024 10:17am [facility] Work Phone: 1(333) 439-377806-28-2025 Evaluation note* Diagnosis Onset Date Resolution Status Admit Date anemia acuteJune 2024 10:17amStatus post vaginal deliveryresolvedJune 2024 10:17amContact dermatitisacuteAugust 2024 10:34amMajor depression, recurrentacuteSeptember 2024 5:58pmObesity, morbid, BMI 40.0-49.9acute March 22, 2025 5:58pm [facility] Work Phone: 1(403) 554-741006-24-2025 History of Present illness Narrative* Megan Walker MD - 12/27/2024 10:45 AM EDT Subjective Shaneka Nugent is a 24 y.o. at 36w0d with a working estimated date of delivery of 01/24/2025, by Last Menstrual Period who presents for a routine visit. She denies vaginal bleeding, leakage of fluid, decreased movements, or contractions. Her is complicated by: VD Polyhydramnios History of Present Illness Objective Physical Exam: Expected Total Weight Gain: 11 lb-19 lb Pregravid BMI: 41.87 Labs Urine Dip: Lab Results Component Value Date KETONESU Negative 12/22/2024 PROTEINUR Negative 06/06/2024 GLUCOSEUR 1+ 12/22/2024 LEUKOCYTESUR 1+ 12/22/2024 Lab Results Component Value Date HGB 11.7 11/01/2024 HCT 34.7 11/01/2024 LABANTI Negative 06/06/2024 LABRPR Non Reactive 06/06/2024 HEPBSAG Negative 06/06/2024 RUBELLAIGGQT 5.65 06/06/2024 Assessment/Plan Diagnoses and all orders for this visit: Third trimester ([facility]) - POCT urinalysis dipstick manually resulted 36 weeks gestation of ([facility] [facility]) - POCT urinalysis dipstick manually resulted Polyhydramnios affecting in third trimester ([facility]) Urinary tract infection without hematuria, site unspecified Continue vitamin. LIG Expected mode of delivery VD Follow up in 1 week for a routine visit. GBS- NSTNR To L&D for BPP/NST Assessment & Plan documented in this encounterThree Rivers [id number] History of Present illness Narrative* Delia Olson MA - 12/27/2024 10:30 AM EDT Non-Stress Test heart variability: moderate Heart Rate decelerations: none acoustic stimulator: no Heart Rate accelerations: yes Baseline FHR: 145 per minute Non-stress Test: nonreactive Uterine irritability: yes Uterine contractions: none Diagnosis Plan 1. 36 weeks gestation of ([facility]) 2. Polyhydramnios affecting in third trimester ([facility]) documented in this encounterThree Rivers [id number] History of Present illness Narrative* Megan Walker MD - 12/22/2024 12:30 PM EDT Subjective Shaneka Nugent is a 24 y.o. at 35w2d with a working estimated date of delivery of 01/24/2025, by Last Menstrual Period who presents for a routine visit. She denies vaginal bleeding, leakage of fluid, decreased movements, or contractions. Her is complicated by: VD Polyhydramnios Weight loss GBS today History of Present Illness Objective Physical Exam: Expected Total Weight Gain: 11 lb-19 lb Pregravid BMI: 41.87 Labs Urine Dip: Lab Results Component Value Date KETONESU Negative 12/19/2024 PROTEINUR Negative 06/06/2024 GLUCOSEUR Negative 12/19/2024 LEUKOCYTESUR Negative 12/19/2024 Lab Results Component Value Date HGB 11.7 11/01/2024 HCT 34.7 11/01/2024 LABANTI Negative 06/06/2024 LABRPR Non Reactive 06/06/2024 HEPBSAG Negative 06/06/2024 RUBELLAIGGQT 5.65 06/06/2024 No results found for: PAPPA , AFP , HCG , ESTRIOL , INHBA No results found for: GLUF , GLUT1 , [id number] , [id number] Imaging The most recent ultrasound was performed on The most recent ultrasound study is not finalized with a study GA of The most recent ultrasound study is not finalized and EFW of The most recent ultrasound study is not finalized. The most recent ultrasound study is not finalized The most recent ultrasound study is not finalized Assessment/Plan Continue vitamin. Labs reviewed. GBS taken. Expected mode of delivery VD Follow up in 1 week for a routine visit. Assessment & Plan L&D * Megan Walker MD - 12/22/2024 12:30 PM EDT Breast and pelvic exam performed. Pap obtained. documented in this [facility]06-19-2025 History of Present illness Narrative* Delia Olson MA - 12/22/2024 11:30 AM EDT Non-Stress Test heart variability: moderate Heart Rate decelerations: variable acoustic stimulator: no Heart Rate accelerations: yes Baseline FHR: 150 per minute Non-stress Test: reactive Uterine irritability: yes Uterine contractions: irregular, every 3 -4.5 minutes Diagnosis Plan 1. Polyhydramnios affecting in third trimester ([facility]) 2. 35 weeks gestation of ([facility]) documented in this encounterThree Rivers [id number] History of Present illness Narrative* Megan Walker MD - 12/19/2024 11:00 AM EDT Subjective Shaneka Nugent is a 24 y.o. at 34w6d with a working estimated date of delivery of 01/24/2025, by Last Menstrual Period who presents for a routine visit. She denies vaginal bleeding, leakage of fluid, decreased movements, or contractions. NST nonreactive Her is complicated by: VD Polyhydramnios Weight loss GBS today History of Present Illness Objective Physical Exam: Expected Total Weight Gain: 11 lb-19 lb Pregravid BMI: 41.87 Labs Urine Dip: Lab Results Component Value Date KETONESU Negative 12/13/2024 PROTEINUR Negative 06/06/2024 GLUCOSEUR Negative 12/13/2024 LEUKOCYTESUR Negative 12/13/2024 Lab Results Component Value Date HGB 11.7 11/01/2024 HCT 34.7 11/01/2024 LABANTI Negative 06/06/2024 LABRPR Non Reactive 06/06/2024 HEPBSAG Negative 06/06/2024 RUBELLAIGGQT 5.65 06/06/2024 Assessment/Plan Diagnoses and all orders for this visit: screening for streptococcus B ([facility]) - Strep B screen Third trimester ([facility]) - POCT urinalysis dipstick manually resulted 34 weeks gestation of ([facility]) - POCT urinalysis dipstick manually resulted Nonintractable headache, unspecified chronicity pattern, unspecified headache type Poor weight gain of , second trimester ([facility]) Hemorrhoids, unspecified hemorrhoid type Weight loss, abnormal Polyhydramnios affecting in third trimester ([facility]) Continue vitamin. GBS today Expected mode of delivery VD Follow up in 1 week for a routine visit. NST/BPP tp at [facility] for NR NST [facility] Assessment & Plan documented in this [facility]06-16-2025 History of Present illness Narrative* Delia Olson MA - 12/19/2024 10:30 AM EDT Non-Stress Test heart variability: moderate Heart Rate decelerations: variable acoustic stimulator: yes Heart Rate accelerations: no Baseline FHR: 140 per minute Non-stress Test: nonreactive Uterine irritability: yes Uterine contractions: none Diagnosis Plan 1. Polyhydramnios affecting in third trimester ([facility]) 2. 34 weeks gestation of ([facility]) documented in this [facility]06-09-2025 History of Present illness Narrative* Megan Walker MD - 12/12/2024 2:00 PM EDT Subjective Shaneka Nugent is a 24 y.o. at 33w6d with a working estimated date of delivery of 01/24/2025, by Last Menstrual Period who presents for a routine visit. She denies vaginal bleeding, leakage of fluid, decreased movements, or contractions. Her is complicated by: VD Polyhydramnios Weight loss History of Present Illness The patient presents for evaluation of elevated amniotic fluid levels. She reports that her amniotic fluid level was recorded as 19 cms during her last visit. The patient, Shaneka, is and presents for a routine follow-up visit. She reports no significant complaints or concerns at this time. Shaneka is currently at 33 weeks gestation. Tiffanie denies any contractions, leakage of fluid, or vaginal bleeding. She states that if she is on her feet for extended periods, she experiences swelling. Her weight has increased by one pound since the last visit. The patient's amniotic fluid levels were reported as good during a recent assessment. She has been advised to monitor movement using an maci called [employer] to track daily kicks. Shaneka reports regular movement. The patient is scheduled for weekly NST (Non-Stress Test) and Biophysical Profile. She has been instructed to monitor kicks daily using the [employer] maci. In terms of social history, Shaneka mentions involvement in a bike league as a hobby. The review of systems is negative for vaginal bleeding and leakage of fluid. It is positive for swelling when the patient is on her feet for extended periods. Objective Physical Exam: Expected Total Weight Gain: 11 lb-19 lb Pregravid BMI: 41.87 Labs Urine Dip: Lab Results Component Value Date KETONESU Negative 12/05/2024 PROTEINUR Negative 06/06/2024 GLUCOSEUR Negative 12/05/2024 LEUKOCYTESUR Negative 12/05/2024 Lab Results Component Value Date HGB 11.7 11/01/2024 HCT 34.7 11/01/2024 LABANTI Negative 06/06/2024 LABRPR Non Reactive 06/06/2024 HEPBSAG Negative 06/06/2024 RUBELLAIGGQT 5.65 06/06/2024 Assessment/Plan Diagnoses and all orders for this visit: Third trimester ([facility]) - POCT urinalysis dipstick manually resulted 33 weeks gestation of ([facility]) - POCT urinalysis dipstick manually resulted Nonintractable headache, unspecified chronicity pattern, unspecified headache type Poor weight gain of , second trimester ([facility]) Hemorrhoids, unspecified hemorrhoid type Weight loss, abnormal Polyhydramnios affecting in third trimester ([facility]) Urinary tract infection without hematuria, site unspecified Continue vitamin. Labs reviewed. GBS taken. Expected mode of delivery VD Follow up in 1 week for a routine visit. Assessment & Plan 1. Elevated amniotic fluid levels.Nst reactive 1. with increased amniotic fluid: - Assessment: a) Elevated amniotic fluid levels noted last week (level 19) s good g) Patient has gained one pound since last visit - Plan: a) Continue weekly visits b) Perform weekly non-stress test (NST) and biophysical profile c) Conduct weekly ultrasound to assess amniotic fluid levels d) Monitor movement using [employer] maci daily e) Patient to report any contractions, leakage of fluid, or vaginal bleeding f) Follow-up in one week for next visit] documented in this [facility]06-07-2025 History of Present illness Narrative* Megan Walker MD - 12/10/2024 5:29 PM EDT Positive culture documented in this [facility]06-02-2025 History of Present illness Narrative* Megan Walker MD - 12/05/2024 12:30 PM EDT Subjective Shaneka Nugent is a 24 y.o. at 32w6d with a working estimated date of delivery of 01/24/2025, by Last Menstrual Period who presents for a routine visit. She denies vaginal bleeding, leakage of fluid, decreased movements, or contractions. Her is complicated by: VD History of Present Illness The patient is a woman presenting for a routine visit. She reports recent episodes of spotting and smoldering. The patient describes the spotting was mild. She mentions experiencingsome smoldering in her hands as well. The patient has been taking it easy, limiting her physical activity to only necessary walking. She denies any burning sensation on her nails or scratching. The patient's current is characterized by some spotting, and her cervix is closed. No specific details are provided about previous pregnancies. The patient reports fatigue and has limited her physical activity to necessary walking only. Objective Physical Exam: Expected Total Weight Gain: 11 lb-19 lb Pregravid BMI: 41.87 Labs Urine Dip: Lab Results Component Value Date KETONESU Negative 09/12/2024 PROTEINUR Negative 06/06/2024 GLUCOSEUR Negative 11/14/2024 LEUKOCYTESUR Negative 09/12/2024 Lab Results Component Value Date HGB 11.7 11/01/2024 HCT 34.7 11/01/2024 LABANTI Negative 06/06/2024 LABRPR Non Reactive 06/06/2024 HEPBSAG Negative 06/06/2024 RUBELLAIGGQT 5.65 06/06/2024 Assessment/Plan Diagnoses and all orders for this visit: Third trimester - POCT urinalysis dipstick manually resulted 32 weeks gestation of - POCT urinalysis dipstick manually resulted - NuSwab Vaginitis Plus (VG+) - GENITAL MYCOPLASMAS EDDIE, SWAB Nonintractable headache, unspecified chronicity pattern, unspecified headache type Hemorrhoids, unspecified hemorrhoid type Poor weight gain of , second trimester Weight loss, abnormal Polyhydramnios affecting in third trimester Continue vitamin. . Expected mode of delivery VD Follow up in 1 week for a routine visit. Assessment & Plan 1. Vaginal spotting during : - Assessment: Patient reports recent spotting. On examination, the cervix is closed, which is reassuring. However, given the presence of spotting, further evaluation is warranted to ensure well-being and rule out any placental issues. - Plan: a) Perform limited ultrasound to assess placental status and cervical length. b) Patient to return for follow-up appointment on Thursday. c) Instruct patient to go to labor and delivery or call if any more bleeding occurs, even if minimal. d) Weekly follow-ups to begin in 4 weeks. 2. Hand discomfort: - Assessment: Patient reports smoldering sensation in hands. This could be related to fluid retention or edema common in . - Plan: a) Advise patient to remove all rings to prevent constriction. b) Monitor symptoms. documented in this encounterThree Rivers [id number] Telephone encounter Note* Telephone Encounter - Megan Walker MD - 11/23/2024 7:53 AM EDT UTI Prescription sent [facility] [id number] Miscellaneous Notes* Telephone Encounter - Megan Walker MD - 11/23/2024 7:53 AM EDT UTI Prescription sent documented in this encounterNOBarnes-[facility] [id number] History of Present illness Narrative* Megan Walker MD - 11/14/2024 12:30 PM EDT Subjective Shaneka Nugent is a 24 y.o. at 29w6d with a working estimated date of delivery of 01/24/2025, by Last Menstrual Period who presents for a routine visit. She denies vaginal bleeding, leakage of fluid, decreased movements, or contractions. Her is complicated by: VD History of Present Illness The patient presents for evaluation of . She reports experiencing significant pressure, which she attributes to her . She is currently at 24 weeks' gestation and expresses concern about the possibility of polyhydramnios. She confirms that she can perceive movements. Additionally, she notes edema in her feet, which she manages by elevating them slightly. She also mentions that her hands are in a normal state. OBSTETRICAL HISTORY: 2, Para 1 Gestational age: 24 weeks The patient, who is , presents for a follow-up visit with concerns about pressure in the upper abdominal region. She reports experiencing a lot of pressure in the upper abdominal area, though she seems to have a relaxed attitude about it, stating I consider it's gonna do what it wants todo anyway. Objective Physical Exam: Expected Total Weight Gain: 11 lb-19 lb Pregravid BMI: 41.87 Labs Urine Dip: Lab Results Component Value Date KETONESU Negative 09/12/2024 PROTEINUR Negative 06/06/2024 GLUCOSEUR Negative 10/10/2024 LEUKOCYTESUR Negative 09/12/2024 Lab Results Component Value Date HGB 11.7 11/01/2024 HCT 34.7 11/01/2024 LABANTI Negative 06/06/2024 LABRPR Non Reactive 06/06/2024 HEPBSAG Negative 06/06/2024 RUBELLAIGGQT 5.65 06/06/2024 Assessment/Plan Diagnoses and all orders for this visit: Third trimester 29 weeks gestation of - POCT urinalysis dipstick manually resulted Nonintractable headache, unspecified chronicity pattern, unspecified headache type resolved Hemorrhoids, unspecified hemorrhoid type asymptomatic Poor weight gain of , second trimester resolved Weight loss, improved Polyhydramnios affecting in third trimester Assessment & Plan 1. . The ultrasound results were satisfactory, with the fetus exhibiting active movement. Weight has increased from the 66th percentile to the 69th percentile since 09/2024. Reports experiencing pressure and swelling in the feet, which improves with elevation. Advised to maintain adequate hydration to help with the swelling. A referral to a chiropractor in [place] will be provided via [employer]. A follow-up ultrasound is scheduled for 2 weeks from now. - Maintain adequate hydration - Referral to chiropractor in [place] via light - Follow-up ultrasound in 2 weeks Follow-up Follow up in 2 weeks. 1. Abdominal pressure: - Assessment: - Patient reports experiencing a lot of pressure in the upper abdominal region - Exact cause and duration not specified - Plan: a) Reassess in 2 weeks 2. -related concerns: - Assessment: - Patient is with concerns about potential complications - Clinician provided education on warning signs - Plan: a) Patient educated on warning signs: - Contractions more than 4 an hour - Bleeding greater than a typical menstrual period Leakage of fluid b) Follow-up as scheduled or sooner if warning signs occur documented in this encounterThree Rivers [id number] NoteHNO ID: [id number] Author: BRANDON AMOS MD Service: ? Author Type: Physician Type: Progress Notes Filed: 10/17/2024 16:00 Note Text: OBSTETRICS MATERNAL MEDICINE CONSULT SERVICE DATE: October 17, 2024 SERVICE TIME: 1400 REQUESTING PROVIDER: Dr. Megan Walker Subjective HISTORY OF THE PRESENT ILLNESS: Many thanks for referring Ms. Shaneka Nugent who is a 24 year old female, , who is at 25w6d with an KAPIL of 01/24/2025, by Ultrasound dating method who presents for suspected polyhydramnios HISTORY REVIEW PAST MEDICAL HISTORY No past medical history on file. PAST SURGICAL HISTORY No past surgical history on file. FAMILY HISTORY No family history on file. SOCIAL HISTORY Social History Tobacco Use Smoking status: Never Obstetric History T0 L0 SAB1 IAB0 Ectopic0 Multiple0 Live Births0 Name of Baby 1: Not recorded Date: 2022 GA: Not recorded Type: Not recorded Apgar1: Not recorded Apgar5: Not recorded Living: Not recorded Name of Baby 2: Not recorded Date: Not recorded GA: Not recorded Type: Not recorded Apgar1: Not recorded Apgar5: Not recorded Living: Not recorded There are no active non-hospital problems to display for this patient. ALLERGIES ALLERGIES Allergen Reactions Lamotrigine Rash PRIOR TO ADMISSION MEDICATIONS: Cannot display prior to admission medications because the patient has not been admitted in this contact. Objective LAST VITALS: Pulse BP Resp O2 Sat Temp Pain HT/WT/BMI: Height Weight BMI LABS Diagnostic tests reviewed for today's visit: Pertinent Labs Reviewed The patient is referred for a detailed anatomic survey. - Single, live, intrauterine . - biometry is consistent with the established gestational age. - No malformations were visualized on a detailed anatomic survey, although some anatomical structures were suboptimally seen as detailed below. - The amniotic fluid volume is normal amount. - stomach was visualized - The placenta is anterior. - The Transabdominal cervical length measures 42.3 mm with no evidence of funneling or other dynamic changes. - Not all structural malformations can be detected by ultrasound examination As per Moira Shaneka Gannon Karen her Glucose screen was negative Impression/Recommendations 24 year old EGA:25w6d. Problem List Amniotic Fluid Ms. Shaneka Nugent was referred for increased amniotic fluid. On today's imaging the amniotic fluid measures 22.7cm and is within normal parameters. The stomach is visualized. There is good movement. The EFW is at the 93% with AC 94%. But her glucose screen is within normal limits (as per Ms. Shaneka Gannon Karen). The results were discussed with Ms. Shaneka Nugent. I explained that the amniotic fluid was within normal parameters. I explained that the baby was measuring large but explained that this could be constitutional or could be undiagnosed gestational diabetes. Based on this I have recommended a follow up growth in 4-5w and repeating the glucose screen. Many thanks for this interesting consult. Consultation requested by Dr. Walker for an opinion regarding suspected polyhydramnios. My final recommendations will be communicated back to the requesting physician by way of shared Medical record or letter to requesting physician via US mail. Brandon Amos Staff Physician, Division of Maternal Medicine, [facility] I spent a total of 30 minutes on the date of the service which included preparing to see the patient, [id number] patient care, completing clinical documentation, counseling and educating the patient/family/caregiver, and communicating with other HCPs (not separately reported).[facility]04-14-2025 History of Present illness Narrative* Brandon Amos MD - 10/17/2024 3:59 PM EDT Images from the original note were not included. OBSTETRICS MATERNAL MEDICINE CONSULT SERVICE DATE: October 17, 2024 SERVICE TIME: 1400 REQUESTING PROVIDER: Dr. Megan Walker Subjective HISTORY OF THE PRESENT ILLNESS: Many thanks for referring Ms. Shaneka Nugent who is a 24 year old female, , who is at 25w6d with an KAPIL of 01/24/2025, by Ultrasound dating method who presents for suspected polyhydramnios HISTORY REVIEW PAST MEDICAL HISTORY No past medical history on file. PAST SURGICAL HISTORY No past surgical history on file. FAMILY HISTORY No family history on file. SOCIAL HISTORY Social History Tobacco Use Smoking status: Never Obstetric History T0 L0 SAB1 IAB0 Ectopic0 Multiple0 Live Births0 Name of Baby 1: Not recorded Date: 2022 GA: Not recorded Type: Not recorded Apgar1: Not recorded Apgar5: Not recorded Living: Not recorded Name of Baby 2: Not recorded Date: Not recorded GA: Not recorded Type: Not recorded Apgar1: Not recorded Apgar5: Not recorded Living: Not recorded There are no active non-hospital problems to display for this patient. ALLERGIES ALLERGIES Allergen Reactions Lamotrigine Rash PRIOR TO ADMISSION MEDICATIONS: Cannot display prior to admission medications because the patient has not been admitted in this contact. Objective LAST VITALS: Pulse BP Resp O2 Sat Temp Pain HT/WT/BMI: Height Weight BMI LABS Diagnostic tests reviewed for today's visit: Pertinent Labs Reviewed The patient is referred for a detailed anatomic survey. - Single, live, intrauterine . - biometry is consistent with the established gestational age. - No malformations were visualized on a detailed anatomic survey, although some anatomical structures were suboptimally seen as detailed below. - The amniotic fluid volume is normal amount. - stomach was visualized - The placenta is anterior. - The Transabdominal cervical length measures 42.3 mm with no evidence of funneling or other dynamic changes. - Not all structural malformations can be detected by ultrasound examination As per Ms. Shaneka Nugent her Glucose screen was negative Impression/Recommendations 24 year old EGA:25w6d. Problem List Amniotic Fluid Ms. Shaneka Nugent was referred for increased amniotic fluid. On today's imaging the amniotic fluid measures 22.7cm and is within normal parameters. The stomach is visualized. There is good movement. The EFW is at the 93% with AC 94%. But her glucose screen is within normal limits (as per Ms. Shaneka Nugent). The results were discussed with Ms. Shaneka Nugent. I explained that the amniotic fluid was within normal parameters. I explained that the baby was measuring large but explained that this could beconstitutional or could be undiagnosed gestational diabetes. Based on this I have recommended a follow up growth in 4-5w and repeating the glucose screen. Many thanks for this interesting consult. Consultation requested by Dr. Walker for an opinion regarding suspected polyhydramnios. My final recommendations will be communicated back to the requesting physician by way of shared Medical record or letter to requesting physician via US mail. Brandon Amos Staff Physician, Division of Maternal Medicine, [facility] I spent a total of 30 minutes on the date of the service which included preparing to see the patient, [id number] patient care, completing clinical documentation, counseling and educating the patient/family/caregiver, and communicating with other HCPs (not separately reported). documented in this encounter[facility]-20[facility] Telephone encounter Note * Telephone Encounter - Rosa Jefferson MA - 10/12/2024 12:00 PM EDT Called pt regarding referral from [facility]. Verified name and . Referral for polyhydramnios: amountof AF: mildly increased - 23.1 cm . Pt had missed AB No h/o HTN. 1hr GTT WNL at 105. Meds: asa, magnesium, pnv [id number] WNL Pt offered and accepted appts at [facility] on 10/17 starting with anatomy at 2 pm and followed by consult at 3 pm. No questions/concerns at this time. Instructions on how to get to office given. Rosa Jefferson MA [facility]04-09-2025 Miscellaneous Notes* Telephone Encounter - Rosa Jefferson MA - 10/12/2024 12:00 PM EDT Called pt regarding referral from [facility]. Verified name and . Referral for polyhydramnios: amountof AF: mildly increased - 23.1 cm . Pt had missed AB No h/o HTN. 1hr GTT WNL at 105. Meds: asa, magnesium, pnv [id number] WNL Pt offered and accepted appts at [facility] on 10/17 starting with anatomy at 2 pm and followed by consult at 3 pm. No questions/concerns at this time. Instructions on how to get to office given. Rosa Jefferson MA documented in this [facility] History of Present illness Narrative* Megna Walker MD - 10/10/2024 10:00 AM EDT Subjective Shaneka Nugent is a 24 y.o. at 24w2d with a working estimated date of delivery of 01/24/2025, by Last Menstrual Period who presents for a routine visit. She denies vaginal bleeding, leakage of fluid, decreased movements, or contractions. AUS normal Her is complicated by: VD Objective Physical Exam weight: 223 lb Expected Total Weight Gain: 11 lb-19 lb Pregravid BMI: 41.87 BP: 116/74 Labs Urine dip: Lab Results Component Value Date KETONESU Negative 09/12/2024 PROTEINUR Negative 06/06/2024 GLUCOSEUR Negative 10/10/2024 LEUKOCYTESUR Negative 09/12/2024 Lab Results Component Value Date HGB 13.9 06/06/2024 HCT 40.8 06/06/2024 LABANTI Negative 06/06/2024 LABRPR Non Reactive 06/06/2024 HEPBSAG Negative 06/06/2024 RUBELLAIGGQT 5.65 06/06/2024 Assessment/Plan Diagnoses and all orders for this visit: Polyhydramnios in second trimester, single or unspecified fetus Second trimester - GTT, 1 hour - POCT urinalysis dipstick manually resulted Nonintractable headache, unspecified chronicity pattern, unspecified headache type Hemorrhoids, unspecified hemorrhoid type Poor weight gain of , second trimester Weight loss, abnormal 24 weeks gestation of - GTT, 1 hour - POCT urinalysis dipstick manually resulted Continue vitamin. Labs reviewed. A+ GTT Order in. Assessment & Plan 1. Increased amniotic fluid. The ultrasound revealed a slight increase in amniotic fluid. This could be due to gestational diabetes or gastrointestinal issues affecting the baby's ability to process the fluid. A referral to a high-risk management consultant in [place] has been made for further evaluation. The patient will undergo a glucose tolerance test earlier than the standard 26-28 weeks due to the increased fluid. An ultrasound will be scheduled in 6 weeks, which can be canceled if the high-risk management consultant recommends more frequent ultrasounds. 2. Allergies. She is experiencing sneezing, runny nose, and watery eyes. She has been advised to continue taking Zyrtec for symptom relief. 3. Round ligament pain. She reports pain in the buttock area, likely due to round ligament pain. Tramadol has been recommended for pain management. 4. Breast leakage. She has been informed that early breast leakage can occur and is normal unless the fluid is bloody.She has been advised not to stimulate her breasts to avoid causing contractions. If the fluid is clear, she can collect and store it. Follow-up The patient will follow up in 4 weeks. Follow up in 4weeks for a routine visit. documented in this encounterThree Rivers [id number] History of Present illness Narrative* Megan Walker MD - 09/15/2024 12:16 PM EDT UP documented in this encounterThree Rivers [id number] History of Present illness Narrative* Megan Walker MD - 09/12/2024 8:45 AM EDT Subjective Shaneka Nugent is a 24 y.o. at 20w6d with a working estimated date of delivery of 01/24/2025, by Last Menstrual Period who presents for a routine visit. She denies vaginal bleeding, leakage of fluid, decreased movements, or contractions. Her is complicated by: VD The patient reports decreased appetite and difficulty maintaining adequate nutrition. She states she is just not hungry and has been struggling to consume protein drinks, even when trying various methods such as drinking them slowly or over ice. The patient mentions she has attempted to drink as many as she can, but sometimes experiences burping if she drinks them too quickly. The patient's weight has been a concern, with the baby reportedly The patient has been using scales at home, typically measuring her weight first thing in the She reports her weight has been consistently between 222 to 224 since July. The patient appears to have anxiety, as indicated by the statement she's a very anxious woman . Review of Systems: - Gastrointestinal: Not hungry, difficulty drinking protein drinks, burping when drinking too fast - Constitutional: Reports feeling anxious Objective Physical Exam weight: 222 lb Expected Total Weight Gain: 11 lb-19 lb Pregravid BMI: 41.87 BP: 110/70 Labs Urine dip: Lab Results Component Value Date KETONESU Negative 09/12/2024 PROTEINUR Negative 06/06/2024 GLUCOSEUR Negative 09/12/2024 LEUKOCYTESUR Negative 09/12/2024 Lab Results Component Value Date HGB 13.9 06/06/2024 HCT 40.8 06/06/2024 LABANTI Negative 06/06/2024 LABRPR Non Reactive 06/06/2024 HEPBSAG Negative 06/06/2024 RUBELLAIGGQT 5.65 06/06/2024 Assessment/Plan Diagnoses and all orders for this visit: 20 weeks gestation of - Urine dip Second trimester Weight loss, abnormal Nonintractable headache, unspecified chronicity pattern, unspecified headache type Hemorrhoids, unspecified hemorrhoid type Continue vitamin. Labs reviewed. Rhogam no---A positive GTT to be ordered at a later date. Follow up in 2 weeks for a routine visit. 1. with poor weight gain: - Patient reports: - Difficulty with appetite - Consuming adequate nutrition, including protein drinks - Feeling full quickly - Occasional nausea - Clinician concerned about potential impact on development - Plan: a) Refer to dispatch clerk for dietary counseling and support b) Schedule follow-up ultrasound in 4 weeks to assess growth c) Continue monitoring weight at home, particularly in the morning d) Encourage patient to attempt consuming protein drinks over ice or sipping slowly e) Schedule follow-up appointment to review dispatch clerk recommendations and ultrasound results documented in this encounterThree Rivers [id number] History of Present illness Narrative* Megan Walker MD - 09/07/2024 1:30 PM EST Subjective Shaneka Nugent is a 24 y.o. at 20w1d with a working estimated date of delivery of 01/24/2025, by Last Menstrual Period who presents for a routine visit. She denies vaginal bleeding, leakage of fluid, decreased movements, or contractions. Her is complicated by: VD Would like yo go over US done on 09/05/24. Leaking resolved lilo 13.2 Cervix 32.4 mm The patient is a 20-week woman who previously reported leaking fluid, but states this symptom has largely resolved. She denies current constipation but reports experiencing hemorrhoids. The patient was previously working but has recently stopped due to her boyfriend's mother moving in to help with the and household responsibilities. She is not currently spending significant time on her feet. The patient has a history of hemorrhoids. 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 Her living situation has changed with her boyfriend's mother moving in with the patient and her boyfriend. The boyfriend's mother is described assupportive and excited about the baby. In the review of systems, the patient reports hemorrhoids in the gastrointestinal system. Hyperventilation is mentioned in the respiratory system. Objective Physical Exam Expected Total Weight Gain: 11 lb-19 lb Pregravid BMI: 41.87 Labs Urine dip: Lab Results Component Value Date KETONESU Negative 07/14/2024 PROTEINUR Negative 06/06/2024 GLUCOSEUR Negative 07/14/2024 LEUKOCYTESUR Negative 07/14/2024 Lab Results Component Value Date HGB 13.9 06/06/2024 HCT 40.8 06/06/2024 LABANTI Negative 06/06/2024 LABRPR Non Reactive 06/06/2024 HEPBSAG Negative 06/06/2024 RUBELLAIGGQT 5.65 06/06/2024 Assessment/Plan Diagnoses and all orders for this visit: Hemorrhoids, unspecified hemorrhoid type - pramoxine (Proctofoam) 1 % foam; Insert into the rectum every 2 (two) hours if needed for hemorrhoids for up to 10 days 20 weeks gestation of - Urine dip Second trimester Weight loss, abnormal Nonintractable headache, unspecified chronicity pattern, unspecified headache type Continue vitamin. Labs reviewed. Rhogam A positive GTT to be ordered at a later date. Follow up in 2 weeks for a routine visit. 1. at 20 weeks gestation: - Ultrasound findings: a) Cervical length: 32.4 mm (good) b) Adequate amniotic fluid - Plan: a) Continue routine care b) No full blood work required at anatomy scan 2. Hemorrhoids: - Patient reports hemorrhoids - Denies constipation - Not currently working or standing for prolonged periods - Plan: a) Clinician to send prescription for hemorrhoid treatment 3. Neurology referral: - Previous referral to neurologist in [place] not pursued - Plan: a) Clinician to resend neurology consult to a specific provider as per patient's preference (patient to provide name) documented in this encounterThree Rivers [id number] History of Present illness Narrative* Megan Walker MD - 08/31/2024 3:30 PM EST Subjective Shaneka Nugent is a 24 y.o. at 19w1d with a working estimated date of delivery of 01/24/2025, by Last Menstrual Period who presents for a routine visit. She denies vaginal bleeding, leakage of fluid, decreased movements, or contractions. Her is complicated by: VD Patient was in the ER on 08/28/24 and was treated for a UTI, had complaints of vaginal discharge. Pt stating that last wed she noticed her underwear were super wet, and noticed 2 times she had green discharge, noticed fluid leaking when she is more active. Denies color or odor, went to ER due to leaking fluid, denies pain. Was concerned about the amount of fluid that was leaking. Was treated for a UTI, denies any symptoms, stating very minimal fluid leaking since she left hospital US 08/29 LILO normal by US and Amnisure - Slight leukocytes in urine, culture sent The patient presents with concerns about vaginal wetness. She reports noticing that her underwear becomes soaked, particularly when she is working or very active. The patient initially sought care atan after-hours clinic, where she was advised to go to the Emergency Room due to uncertainty about her condition. In the ER, she underwent an ultrasound, though the results were not communicated to her. The patient also underwent a pelvic examination, which she describes as painful, causing her to yell out. The examining physician had to repeat the exam as he did not perform a specific test duringthe initial examination. The patient is currently over 20 weeks . The patient reports wet underwear, especially when active or at work, as part of her genitourinary symptoms. She also experienced pain during the pelvic exam in the Emergency Room. Objective Physical Exam Expected Total Weight Gain: 11 lb-19 lb Pregravid BMI: 41.87 Nitrazine- Pool- Labs Urine dip: Lab Results Component Value Date KETONESU Negative 07/14/2024 PROTEINUR Negative 06/06/2024 GLUCOSEUR Negative 07/14/2024 LEUKOCYTESUR Negative 07/14/2024 Lab Results Component Value Date HGB 13.9 06/06/2024 HCT 40.8 06/06/2024 LABANTI Negative 06/06/2024 LABRPR Non Reactive 06/06/2024 HEPBSAG Negative 06/06/2024 RUBELLAIGGQT 5.65 06/06/2024 Assessment/Plan Diagnoses and all orders for this visit: 19 weeks gestation of - Urine culture Second trimester - Urine culture Weight loss, abnormal Nonintractable headache, unspecified chronicity pattern, unspecified headache type Leukocytes in urine - Urine culture Continue vitamin. Labs reviewed. A positive GTT to be ordered at a later date. Follow up in 2 weeks for a routine visit. 1. Possible amniotic fluid leakage: - Patient reports wet underwear, particularly noticeable when active or at work - Patient is over 20 weeks gestation - ER visit: a) Ultrasound performed, results unknown b) Physical exam conducted, patient found it painful in ER - Plan: a) Obtain results of previous ER ultrasound and other tests b) Schedule early ultrasound for further evaluation c) Instruct patient to go to Labor and Delivery if underwear becomes wet again, bringing the wet underwear for examination d) Follow-up ultrasound scheduled for September 12 documented in this encounterThree Rivers [id number] Telephone encounter Note* Telephone Encounter - Chhaya Schwarz - 08/30/2024 10:47 AM EST Yes, I'll send her a mychart message to get her scheduled! [facility] [id number] Miscellaneous Notes* Telephone Encounter - Chhaya Schwarz - 08/30/2024 10:47 AM EST Yes, I'll send her a mychart message to get her scheduled! * Telephone Encounter - Shaneka Canales RN - 08/30/2024 10:31 AM EST Patient returned call and lm. States she is at work and if easier to send mychart message that is fine. * Telephone Encounter - Megan Walker MD - 08/29/2024 1:46 PM EST yes * Telephone Encounter - Chhaya Schwarz - 08/29/2024 10:50 AM EST Patient called to make a follow up apt with . The patient was seen in the ER at [facility] last night for fluid discharge. The patient was told everything looks fine but she has an UTI and to follow up with her OB. documented in this encounterThree Rivers [id number] Telephone encounter Note* Telephone Encounter - Shaneka Canales RN - 08/30/2024 10:31 AM EST Patient returned call and lm. States she is at work and if easier to send Outbox message that is fine. [facility] [id number] Telephone encounter Note* Telephone Encounter - Megan Walker MD - 08/29/2024 1:46 PM EST yes [facility] [id number] Telephone encounter Note* Telephone Encounter - Chhaya Schwarz - 08/29/2024 10:50 AM EST Patient called to make a follow up apt with . The patient was seen in the ER at [facility] last night for fluid discharge. The patient was told everything looks fine but she has an UTI and to follow up with her OB. [facility] [id number] History of Present illness Narrative* Megan Walker MD - 08/17/2024 3:00 PM EST Subjective Shaneka Nugent is a 24 y.o. at 17w1d with a working estimated date of delivery of 01/24/2025, by Last Menstrual Period who presents for a routine visit. She denies vaginal bleeding, leakage of fluid, decreased movements, or contractions. Pt stating that she is waking up with headaches everyday and is having a hard time keeping them away. Her is complicated by: VD The patient reports weight loss of approximately 10 pounds since becoming . She states difficulty eating full meals and primarily consumes snacks. The patient expresses inability to eat much despite attempts. She inquires about using meal replacements and protein drinks to supplement her diet. The patient also mentions experiencing headaches, for which magnesium has been suggested. The patient is currently taking baby aspirin for BMI 40 Regarding her social history, the patient reports difficulty eating full meals and prefers snacks. She weighs herself daily upon waking. In the review of systems, the patient reports constitutional symptoms of weight loss, gastrointestinal issues including difficulty eating and being unable to eat much, and neurological symptoms of headaches. Objective Physical Exam Expected Total Weight Gain: 11 lb-19 lb Pregravid BMI: 41.87 Labs Urine dip: Lab Results Component Value Date KETONESU Negative 07/14/2024 PROTEINUR Negative 06/06/2024 GLUCOSEUR Negative 07/14/2024 LEUKOCYTESUR Negative 07/14/2024 Lab Results Component Value Date HGB 13.9 06/06/2024 HCT 40.8 06/06/2024 LABANTI Negative 06/06/2024 LABRPR Non Reactive 06/06/2024 HEPBSAG Negative 06/06/2024 RUBELLAIGGQT 5.65 06/06/2024 Assessment/Plan Diagnoses and all orders for this visit: 17 weeks gestation of Second trimester Continue vitamin. Labs reviewed. A positive GTT Glucose will be ordered to be completed around 27 weeks gestation.. Follow up in 2 weeks for a routine visit. 1. with weight loss: - Patient reports weight loss of approximately 10 pounds since becoming - Describes difficulty eating full meals and instead consumes frequent snacks - Plan: a) Schedule appointment with dispatch clerk for dietary counseling b) Patient to return in 10 days for weight check c) Regular visit in 3 weeks with anatomy scan ultrasound d) Recommend minimum caloric intake of 4418-8375 calories per day e) Consider meal replacement options such as protein drinks f) Explore possibility of prescribing Ensure or WIC nutritional supplements 2. Headaches: - Patient reports experiencing headaches - Plan: a) Trial of magnesium supplementation b) Referral to neurologist for evaluation 3. Routine care: - Patient is receiving routine care - Reports compliance with baby aspirin as prescribed - Plan: a) Early glucose screening test to be performed b) Anatomy scan ultrasound scheduled c) Continue baby aspirin documented in this encounterThree Rivers [id number] History of Present illness Narrative* Megan Walker MD - 07/14/2024 9:00 AM EST Subjective Shaneka Nugent is a 24 y.o. at 12w2d with a working estimated date of delivery of 01/24/2025, by Last Menstrual Period who presents for a routine visit. She denies vaginal bleeding, leakage of fluid, decreased movements, or contractions. The patient reports that nausea has improved and is no longer experiencing any issues with it. She mentions having tinnitus at home. The patient had a period of severe nausea and dry heaving for two weeks, but it has since resolved. She denies any current use of medications for vomiting. The patient has not experienced any vaginal bleeding or spotting and reports no other concerns or symptoms. She had an ultrasound done at a pharmacy, which revealed a subchorionic hemorrhage. The patient is considering genetic testing and has a due date of 01-24, as determined by the ultrasound. Objective Physical Exam weight: 224 lb Expected Total Weight Gain: Could not be calculated Pregravid BMI: Could not be calculated BP: 120/78 Labs Urine dip: Lab Results Component Value Date KETONESU Negative 07/14/2024 PROTEINUR Negative 06/06/2024 GLUCOSEUR Negative 07/14/2024 LEUKOCYTESUR Negative 07/14/2024 Lab Results Component Value Date HGB 13.9 06/06/2024 HCT 40.8 06/06/2024 LABANTI Negative 06/06/2024 LABRPR Non Reactive 06/06/2024 HEPBSAG Negative 06/06/2024 RUBELLAIGGQT 5.65 06/06/2024 Assessment/Plan Diagnoses and all orders for this visit: 12 weeks gestation of - Urine dip Encounter for supervision of normal first in first trimester LGSIL of cervix of undetermined significance - IGP, APT HPV,RFX 16/18,45 Encounter for screening for cervical cancer - IGP, APT HPV,RFX 16/18,45 care, subsequent in first trimester - Inheritest(R) Core Panel; Future - Maternity 21; Future Screening for genetic disease carrier status - Inheritest(R) Core Panel; Future - Maternity 21; Future Screen for STD (sexually transmitted disease) - CEPHEID CT/NG Continue vitamin. Follow up in 2 weeks for a routine visit. A positive Neg drug screen Immune Pap 09/14/23- LSIL Colpo 10/13/23 Genetic testing ordered and given to patient. 1. : - Gestational age: Approximately 12 weeks - Estimated due date: 01-24 - Weight gain: Advised to gain 15-25 pounds during - Plan: a) Continue care. b) Follow up in 4 weeks. c) Schedule 20-week ultrasound. 2. Nausea and vomiting in : - Resolved, no current treatment needed - Plan: a) Monitor symptoms. b) Patient to contact the provider if symptoms worsen or new concerns arise. 4. CMV virus prevention: - Plan: a) Wear gloves when changing diapers of adults with children. 5. Listeria prevention: - Plan: a) Heat cold cuts and hotdogs to 350 degrees. b) Avoid uncooked sushi, raw eggs, and unpasteurized milk. 6. Indigestion: - Plan: a) Tums as needed. 7. Subchorionic hemorrhage: - No current spotting - Plan: a) Monitor for vaginal bleeding or cramping. b) Patient to contact the provider if symptoms occur. 8. Genetic testing: - Maternity 21 chromosome test scheduled for next week - Plan: a) Follow up on test results. b) Discuss during the next appointment. 9. heart rate monitoring: - Plan: a) Patient may purchase a Doppler on [employer] for home monitoring. 10. Next appointment: - Plan: a) Follow up in 4 weeks. AUS 8 weeks b) Discuss ultrasound results and genetic testing. c) Address any new concerns or questions. documented in this encounterThree Rivers [id number] History of Present illness Narrative* Laureen Prakash RN - 06/06/2024 11:15 AM EST Name: Shaneka Nugent Date/Time of Service:06/06/2024 11:42 AM :2000 Age: 23 y.o. Chief Complaint Chief Complaint Patient presents with Initial Visit Shaneka Nugent is a 23 y.o. at 6w6d with a working estimated date of delivery of 01/24/2025, by Last Menstrual Period who presents for an initial visit. OB History Para Term AB Living 2 0 0 0 1 0 SAB IAB Ectopic Multiple Live Births 1 0 0 0 0 # Outcome Date GA Lbr Juarez/2nd Weight Sex Type Anes PTL Lv 2 Current 1 SAB 2022 Past Medical / Surgical History Past Medical History: Diagnosis Date Allergic rhinitis 08/18/2023 Alopecia 08/18/2023 Anxiety and depression (CMS/HCC) 08/18/2023 meds in the past: sertraline, fluoxetine, trazodone, abilify Breakthrough bleeding on Nexplanon COVID-19 virus detected 06/19/2022 tested positive Depression (CMS/HCC) 08/18/2023 Hyperinsulinemia Insomnia Mood disorder ([facility]) Morbid obesity with BMI of 40.0-44.9, adult (CMS/[facility]) Polycystic ovary syndrome Sleep difficulties Torus palatinus Polycystic Ovarian Disease; pt had seen home care and home health aides 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 Past Surgical History: Procedure Laterality Date NO PAST SURGERIES OTHER SURGICAL HISTORY 08/2019 Nexplanon inserted (Dr Houston) Family History Family History Problem Relation Name Age of Onset Hypertension Mother Darby lyudmila Depression Father J Luis Other (anxiety) Father J Luis Crohn's disease Father J Luis Hypotension Father J Luis No Known Problems Sister Ovarian cancer Maternal Grandmother Jacqui No Known Problems Maternal Grandfather Depression Paternal Grandmother Xena No Known Problems Paternal Grandfather Other (blood clots) Other paternal side Social History reports that she has never smoked. She has never used smokeless tobacco. She reports that she does not currently use alcohol after a past usage of about 1.0 standard drink of alcohol per week. She reports that she does not currently use drugs after having used the following drugs: Marijuana. Frequency: 1.00 time per week. Social History Tobacco Use Smoking Status Never Smokeless Tobacco Never MEDICATIONS: Current Outpatient Medications on File Prior to Visit Medication Sig Dispense Refill aspirin 81 MG chewable tablet Chew 1 tablet (81 mg) Daily 30 tablet 11 Progesterone 200 MG suppository Insert 200 mg into the vagina at bedtime 30 suppository 2 [DISCONTINUED] buPROPion (Wellbutrin) 75 MG tablet Take 75 mg by mouth in the morning and 75 mg in the evening and 75 mg before bedtime. [DISCONTINUED] naltrexone (Depade) 50 MG tablet Take 0.5 tablets by mouth in the morning and 0.5 tablets before bedtime. [DISCONTINUED] naproxen (Naprosyn) 500 MG tablet Take 1 tablet (500 mg) by mouth in the morning and1 tablet (500 mg) before bedtime. Do all this for 15 days. Take with food. 30 tablet 0 [DISCONTINUED] ondansetron (Zofran) 4 MG tablet Take 4 mg by mouth every 6 (six) hours if needed for nausea or vomiting [DISCONTINUED] tiZANidine (Zanaflex) 4 MG tablet Take 1 tablet (4 mg) by mouth as needed at bedtimefor muscle spasms for up to 7 days 7 tablet 0 No current facility-administered medications on file prior to visit. Allergies Allergies Allergen Reactions Lamictal [Lamotrigine] Rash Patient reports nausea and no vomiting. Discussed smaller meals, gianna products, OTC Vitamin B6 50mg BID and Unisom 25mg BID Patient reports taking daily vitamins. Genetic and Chromosomal testing discussed. Last PAP: 09/14/23 LSIL ASSESSMENT / PLAN Labs Ordered. Patient handed printed copy of orders to take with her to [facility] to have drawn today. Appointments scheduled for 07/14 with [facility] 06/06/2024 11:42 AM documented in this encounterThree Rivers [id number] History of Present illness Narrative* Ying Reid NP - 05/17/2024 10:14 AM ESTAssociated Problem(s): Strain of thoracic back region Ice to affected area 4 times daily for 20 minutes Add NSAID, and cont tylenol as well Fu if not better * THELMA GUDINO - 05/17/2024 9:40 AM EST Left shoulder blade pain- possibly pinch nerve. Pain started Thursday night after being rowdy wheredonal had slipped with her arms up and felt a tight pull on the left shoulder plain. She has been taking tylenol and using a rub on cooling salve on the area for some pain relief. Pt believes that this is what she could have had during the summer when she went to the er for chest pain. * Ying Reid NP - 05/17/2024 9:40 AM EST Images from the original note were not included. Shaneka Nugent is a 23 y.o. female presents with chief complaint of No chief complaint on file. HPI: Here for shoulder blade discomfort Had injury where she hyperextended, immediately after pain to left should blade: Sharp, intermittent, worse w certain movements, and w deep breath Tylenol helps some, tigerbalm some help as well SUBJECTIVE: MEDICATIONS: Current Outpatient Medications Medication Instructions buPROPion (WELLBUTRIN) 75 mg, 3 times daily naltrexone (Depade) 50 MG tablet 0.5 tablets, 2 times daily naproxen (NAPROSYN) 500 mg, Oral, 2 times daily, Take with food ondansetron (ZOFRAN) 4 mg, Every 6 hours PRN tiZANidine (ZANAFLEX) 4 mg, Oral, Nightly PRN ALLERGIES: Allergies Allergen Reactions Lamictal [Lamotrigine] Rash REVIEW OF SYMPTOMS: Review of Systems Constitutional: Negative for appetite change, chills and fever. HENT: Negative for congestion, ear pain and sore throat. Eyes: Negative for pain, discharge, redness and visual disturbance. Respiratory: Negative for cough, shortness of breath and wheezing. Cardiovascular: Negative for chest pain, palpitations and leg swelling. Gastrointestinal: Negative for abdominal pain, blood in stool, constipation, diarrhea, nausea and vomiting. Genitourinary: Negative for difficulty urinating, dysuria and frequency. Musculoskeletal: Negative for arthralgias, back pain, joint swelling and myalgias. Shoulder blade pain Skin: Negative for rash and wound. Neurological: [...] rhinitis 08/18/2023 Alopecia 08/18/2023 Anxiety and depression ([facility]/HCC) 08/18/2023 meds in the past: sertraline, fluoxetine, trazodone, abilify Breakthrough bleeding on Nexplanon COVID-19 virus detected 06/19/2022 tested positive Depression ([facility]/HCC) 08/18/2023 Hyperinsulinemia Insomnia Mood disorder ([facility]) Morbid obesity with BMI of 40.0-44.9, adult ([facility]) Polycystic ovary syndrome Sleep difficulties Torus palatinus Polycystic Ovarian Disease; pt had seen home care and home health aides 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 Past Surgical History: Procedure Laterality Date NO PAST SURGERIES OTHER SURGICAL HISTORY 08/2019 Nexplanon inserted (Dr Houston) family history includes Crohn's disease in her father; Depression in her father and paternal grandmother; Hypertension in her mother; No Known Problems in her maternal grandfather, paternal grandfather, and sister; Ovarian cancer in her maternal grandmother; anxiety in her father; blood clots in another family member. OBJECTIVE: Visit Vitals BP 118/82 (BP Location: Left arm, Patient Position: Sitting, BP Cuff Size: Adult long) Pulse 84 Temp 97.8 F (Temporal) Resp 18 Wt 230 lb 9.6 oz SpO2 99% BMI 42.18 kg/m OB Status Having periods Smoking Status Never BSA 2.14 m Physical Exam Vitals and nursing note reviewed. Constitutional: General: She is not in acute distress. Appearance: Normal appearance. HENT: Head: Normocephalic and atraumatic. Right Ear: External ear normal. Left Ear: External ear normal. Nose: Nose normal. Mouth/Throat: Mouth: Mucous membranes are moist. Eyes: Extraocular Movements: Extraocular movements intact. Conjunctiva/sclera: Conjunctivae normal. Cardiovascular: Rate and Rhythm: Normal rate and regular rhythm. Pulses: Normal pulses. Heart sounds: Normal heart sounds. Pulmonary: Effort: Pulmonary effort is normal. Breath sounds: Normal breath sounds. No wheezing or rales. Abdominal: General: Bowel sounds are normal. There is no distension. Palpations: Abdomen is soft. There is no mass. Tenderness: There is no abdominal tenderness. Musculoskeletal: Cervical back: Normal range of motion and neck supple. Right lower leg: No edema. Left lower leg: No edema. Comments: Tenderness to sub scapular region, no rash to suggest zoster No midline point tenderness to thoracic spine Left shoulder near full ROM, mild pain to shoulder blade region w cross arm abduction Neg empty can test, rotator cuff strength 5/5 bilat Left sub scapular pain with rotation of the thoracic spine to the right Skin: General: Skin is warm and dry. Capillary Refill: Capillary refill takes 2 to 3 seconds. Findings: No rash. Neurological: General: No focal deficit present. Mental Status: She is alert and oriented to person, place, and time. Psychiatric: Mood and Affect: Mood normal. Behavior: Behavior normal. Thought Content: Thought content normal. Judgment: Judgment normal. ASSESSMENT AND PLAN: Follow up if symptoms worsen or fail to improve. Problem List Items Addressed This Visit Obesity, morbid, BMI 40.0-49.9 (CMS/HCC) - Primary Strain of thoracic back region Ice to affected area 4 times daily for 20 minutes Add NSAID, and cont tylenol as well Fu if not better Relevant Medications naproxen (Naprosyn) 500 MG tablet tiZANidine (Zanaflex) 4 MG tablet documented in this [facility]11-12-2024 Instructions* Patient Instructions* Ying Reid NP - 05/17/2024 9:40 AM EST Ice to affected area 4 times daily for 20 minutes each Naproxen 500mg twice a day for up to 14 days, take with food: will help with inflammation Tizanidine 4mg may take 1/2 pill or 1 pill at bedtime for muscle relaxer, it may make you drowsy Follow up if not better documented in this [facility]11-05-2024 Telephone encounter Note* Telephone Encounter - Beth Allison APRN.CNP - 05/10/2024 12:32 PM EST The following approved medication requests have been transmitted electronically. Requested Prescriptions Signed Prescriptions Disp Refills naltrexone 50 mg tablet 30 tablet 2 Sig: Take 1/2 tablet twice daily Beth Allison APRN.CNP [facility]11-05-2024 Miscellaneous Notes* Telephone Encounter - Beth Allison APRN.CNP - 05/10/2024 12:32 PM EST The following approved medication requests have been transmitted electronically. Requested Prescriptions Signed Prescriptions Disp Refills naltrexone 50 mg tablet 30 tablet 2 Sig: Take 1/2 tablet twice daily Beth Allison APRN.CNP * Telephone Encounter - Kasey Bernal RN - 05/10/2024 10:37 AM EST PRO 04/08/2024 (Beth) 07/18/2024 (Beth) Patient taking bupropion 75mg twice a day and Naltrexone 25mg daily. C/O that medication are not doing what they should . I still feel very hungry and have cravings! Current weight 229.6lb (has lost 8.4lb since the last visit in 04/08/2024). Please advise [facility] Telephone encounter Note * Telephone Encounter - Kasey Bernal RN - 05/10/2024 10:37 AM EST PRO 04/08/2024 (Beth) 07/18/2024 (Beth) Patient taking bupropion 75mg twice a day and Naltrexone 25mg daily. C/O that medication are not doing what they should . I still feel very hungry and have cravings! Current weight 229.6lb (has lost 8.4lb since the last visit in 04/08/2024). Please advise [facility]10-23-2024 NoteHNO ID: [id number] Author: DARNELL MENA RD Service: ? Author Type: Registered Dietitian Type: Progress Notes Filed: 04/27/2024 15:36 Note Text: [facility] Medical Nutrition Therapy Visit Type: Virtual: I have discussed the nature of this visit with the patient which will occur via [facility] (Phone, Virtual Visit) and she agrees to proceed with this interaction . I have communicated my name and active licensure. The patient's identity and physical location were verified at the time of this visit. Either the patient or their legal corporate sales representative has been informed of the risks and benefits of -- and alternatives to -- treatment through a remote evaluation and consents to proceed with the evaluation remotely. Patient states reason for visit: Weight Management Initial DEMOGRAPHICS: Co-Morbidities: No past medical history on file. Activity: Do you do a regular exercise No Symptoms: Patient's symptoms are as follows: Weight Concerns: failure to lose weight How many hours of sleep on average? 2-3 hours on some nights d/t insomnia or 6-7 hours on a good night. Diet History: Work at [employer] 6 days/week (1 day/week work somewhere else and tend to not eat until getting home.) Breakfast: 10am: egg and cheese wake up wrap Drink coffee throughout the day (small to medium iced coffee with vanilla and butter pecan) Snack: 3pm: bite of leftovers or chips Dinner: 5-6pm: mostly made at home for the last 2 months; chunky chicken gravy and mashed potatoes and macaroni and cheese prior to that was a lot of restaurant food Snack: sometimes may have chips or fruit Yesterday only had one medium freeman from [employer] and that was the only food. Fluids: water (one large iced water 32 oz at work) 32 oz. Cup at home x2 home. Occasionally a sprite or HiC ETOH on occasion Dining/eating out? 1x/week for dinner, but daily at work Allergies: No Food Allergy Patient / Provider Comments: Wellbutrin 75 mg BID and Naltrexone 1/2 tablet at night - for 3-4 weeks Cannot eat for the last week. Nothing sounds good, but do physiologically feel hungry. Medications: Current Outpatient Medications Medication Sig buPROPion (WELLBUTRIN) 75 mg tablet Take one tablet one daily for 7 days, then increase to one tablet twice daily. naltrexone 50 mg tablet Take 1/4 tablet every night for 7 days, then increase to 1/2 tablet every night No current facility-administered medications for this visit. Labs: Lab Results Component Value Date HBA1C 4.8 02/01/2024 No results found for: CHOL , HDL , LDL , TG Glucose (mg/dL) Date Value 02/01/2024 104 Potassium (mmol/L) Date Value 02/01/2024 4.1 Sodium (mmol/L) Date Value 02/01/2024 143 Chloride (mmol/L) Date Value 02/01/2024 107 CO2 (mmol/L) Date Value 02/01/2024 24 Creatinine (mg/dL) Date Value 02/01/2024 0.76 BUN (mg/dL) Date Value 02/01/2024 10 Anion Gap (mmol/L) Date Value 02/01/2024 12 Calcium, Total (mg/dL) Date Value 02/01/2024 9.7 ANTHROPOMETRICS Height: Last 1 Encounter Ht Readings: Date: Ht: 04/08/2024 160.1 cm (5' 3.03 ) Current weight: Last 3 Encounter Wt Readings: Date: Wt: 04/08/2024 108.3 kg (238 lb 10.4 oz) 01/28/2024 110.9 kg (244 lb 6.1 oz) 07/24/2017 86.7 kg (191 lb 2.2 oz) (98%, Z= 2.05)* BMI: 42.23 5% -10% Weight loss: 12-23 lbs. Last Wt 04/08/24 : 108.3 kg (238 lb 10.4 oz) 5% weight loss = 227 lbs, 10% weight loss = 215 lbs READINESS TO LEARN Cognitive ability: Alert and oriented Motivation to learn: Interested Family support: Unable to assess - Family not present Instruction provided to: Patient Patient learns best by: Multiple Methods Factors affecting learning: None Physical limitations affecting learning: None Stage of Change: Precontemplation Nutrition Diagnosis: Overweight Obesity, related to; disordered eating pattern, as evidenced by BMI above normative standard for age and gender Calories Needed for Current Weight: Resting Metabolic Rate: 1817 Nutrition Intervention: Discussed the following nutrition topics today at the appointment: --importance of adequate caloric consumption and meal timing for healthy metabolism --carbohydrate and protein sources and effect on weight management, blood sugar regulation and metabolism --concepts of the Mediterranean diet for healthy carb choices --reviewed a sample carb controlled Mediterranean style menu --benefits of fiber in foods and effect on satiety --increase fruit/vegetable carbohydrates --portion sizes for commonly eaten carbohydrate foods --avoiding regular soda, juice, and sugary beverages --Plate Method: at least 1/2 plate filled with low carb vegetables, 1/4 plate with a protein food that is not fried, 1/4 plate high fiber starch/carb --Encouraged increased water/fluid consumption to promote healthy hydration to decrease food cravings Education Mater (more content not included)...[facility] 04-27-2024 History of Present illness Narrative* BrandinDarnell jackson, RD - 04/27/2024 2:56 PM EDT [facility] Medical Nutrition Therapy Visit Type: Virtual: I have discussed the nature of this visit with the patient which will occur via [facility] (Phone, Virtual Visit) and she agrees to proceed with this interaction . I have communicated my name and active licensure. The patient's identity and physical location wereverified at the time of this visit. Either the patient or their legal corporate sales representative has been informed of the risks and benefits of -- and alternatives to -- treatment through a remote evaluation andconsents to proceed with the evaluation remotely. Patient states reason for visit: Weight Management Initial DEMOGRAPHICS: Co-Morbidities: No past medical history on file. Activity: Do you do a regular exercise No Symptoms: Patient's symptoms are as follows: Weight Concerns: failure to lose weight How many hours of sleep on average? 2-3 hours on some nights d/t insomnia or 6-7 hours on a good night. Diet History: Work at [employer] 6 days/week (1 day/week work somewhere else and tend to not eat until gettinghome.) Breakfast: 10am: egg and cheese wake up wrap Drink coffee throughout the day (small to medium iced coffee with vanilla and butter pecan) Snack: 3pm: bite of leftovers or chips Dinner: 5-6pm: mostly made at home for the last 2 months; chunky chicken gravy and mashed potatoes and macaroni and cheese prior to that was a lot of restaurant food Snack: sometimes may have chips or fruit Yesterday only had one medium freeman from [employer] and that was the only food. Fluids: water (one large iced water 32 oz at work) 32 oz. Cup at home x2 home. Occasionally a sprite or [employer] ETOH on occasion Dining/eating out? 1x/week for dinner, but daily at work Allergies: No Food Allergy Patient / Provider Comments: Wellbutrin 75 mg BID and Naltrexone 1/2 tablet at night - for 3-4 weeks Cannot eat for the last week. Nothing sounds good, but do physiologically feel hungry. Medications: Current Outpatient Medications Medication Sig buPROPion (WELLBUTRIN) 75 mg tablet Take one tablet one daily for 7 days, then increase to one tablet twice daily. naltrexone 50 mg tablet Take 1/4 tablet every night for 7 days, then increase to 1/2 tablet every night No current facility-administered medications for this visit. Labs: Lab Results Component Value Date HBA1C 4.8 02/01/2024 No results found for: CHOL , HDL , LDL , TG Glucose (mg/dL) Date Value 02/01/2024 104 Potassium (mmol/L) Date Value 02/01/2024 4.1 Sodium (mmol/L) Date Value 02/01/2024 143 Chloride (mmol/L) Date Value 02/01/2024 107 CO2 (mmol/L) Date Value 02/01/2024 24 Creatinine (mg/dL) Date Value 02/01/2024 0.76 BUN (mg/dL) Date Value 02/01/2024 10 Anion Gap (mmol/L) Date Value 02/01/2024 12 Calcium, Total (mg/dL) Date Value 02/01/2024 9.7 ANTHROPOMETRICS Height: Last 1 Encounter Ht Readings: Date: Ht: 04/08/2024 160.1 cm (5' 3.03 ) Current weight: Last 3 Encounter Wt Readings: Date: Wt: 04/08/2024 108.3 kg (238 lb 10.4 oz) 01/28/2024 110.9 kg (244 lb 6.1 oz) 07/24/2017 86.7 kg (191 lb 2.2 oz) (98%, Z= 2.05)* BMI: 42.23 5% -10% Weight loss: 12-23 lbs. Last Wt 04/08/24 : 108.3 kg (238 lb 10.4 oz) 5% weight loss = 227 lbs, 10% weight loss = 215 lbs READINESS TO LEARN Cognitive ability: Alert and oriented Motivation to learn: Interested Family support: Unable to assess - Family not present Instruction provided to: Patient Patient learns best by: Multiple Methods Factors affecting learning: None Physical limitations affecting learning: None Stage of Change: Precontemplation Nutrition Diagnosis: Overweight Obesity, related to; disordered eating pattern, as evidenced by BMIabove normative standard for age and gender Calories Needed for Current Weight: Resting Metabolic Rate: 1817 Nutrition Intervention: Discussed the following nutrition topics today at the appointment: --importance of adequate caloric consumption and meal timing for healthy metabolism --carbohydrate and protein sources and effect on weight management, blood sugar regulation and metabolism --concepts of the Mediterranean diet for healthy carb choices --reviewed a sample carb controlled Mediterranean style menu --benefits of fiber in foods and effect on satiety --increase fruit/vegetable carbohydrates --portion sizes for commonly eaten carbohydrate foods --avoiding regular soda, juice, and sugary beverages --Plate Method: at least 1/2 plate filled with low carb vegetables, 1/4 plate with a protein food that is not fried, 1/4 plate high fiber starch/carb --Encouraged increased water/fluid consumption to promote healthy hydration to decrease food cravings Education Materials: Thriving with the Mediterranean Lifestyle Nutrition Monitoring & Evaluation: Dietitian Goals: Weight Reduction of 5-10% within 6 months Criteria: Weight Patient Stated Goals at today's visit: Add protein shake into coffee at work Try to consume a carb and protein snack in the afternoon Increase vegetables at the dinner meal Adherence Potential to Goals: Good Need for Follow up: f/u with RDN Referred by: Beth Allison APRN.YARD ASSOCIATE Darnell Mena RD Consult Billing Type/Increments: Initial Assessment/15 minutes, 2 increment(s), 30 minutes Start time: 3:00pm End time: 3:34pm My final report will be communicated back to the requesting physician by way of shared medical record. Signed by: Darnell Mena RD documented in this encounterCleveland [id number] Telephone encounter Note * Telephone Encounter - Kasey Bernal RN - 04/08/2024 4:24 PM EDT Zepbound is not covered. [facility]10-04-2024 Miscellaneous Notes* Telephone Encounter - Kasey Bernal RN - 04/08/2024 4:24 PM EDT Zepbound is not covered. [facility] this [facility] Telephone encounter Note * Telephone Encounter - Kasey Bernal RN - 04/08/2024 4:17 PM EDT Zepbound CoverMyMeds [place]: [id number] This request cannot be processed due to the medication is not covered by the plan. [facility]10-04-2024 Miscellaneous Notes* Telephone Encounter - Kasey Bernal RN - 04/08/2024 4:17 PM EDT Zepbound CoverMyMeds [place]: [id number] This request cannot be processed due to the medication is not covered by the plan. documented in this [facility]10-04-2024 Instructions* Patient Instructions* Beth Allison APRN.KATHY - 04/08/2024 3:23 PM EDT Start Zepbound 2.5 mg once weekly x 4 weeks, then increase to 5 mg once weekly - Notify the office if you have side effects such as nausea, vomiting, bloating, diarrhea, or abdominal pain that does not subside. When you feel full, just stop eating, or you may get sick. - Zepbound can decrease efficacy of control when initiating medication and with subsequent dose increases. If sexually active and there is a chance of , it is recommended to use a backup form of contraception for the first month after starting and for a month after every dose increase. Zepbound should not be used when . - Will help with prandial control, improve insulin resistance, and aid weight loss - We discussed the side effects (GI upset, N/V/D, & abdominal bloating). They deny any personalhistory of pancreatitis or any personal or family history of medullary thyroid cancer or multiple endocrine neoplasia type 2. For more information on the medication, including instructions on how to administer the medication,visit [employer] Follow up in 3 months Recommend appointment with dietitian, endocrine psychology, and sleep clinic Appointment Center: [phone] Please call this number to make your follow up appointment Dietitian: [phone], option # 3 Please call this number to make your appointment. You can be see one of our providers in person or virtually. Psychology (Dr. Christianson or Dr. Nicolas)-Please call or [phone] to schedule this appointment. If you are having any difficulty scheduling, tell them you want to schedule an appointment with the ENDOCRINE psychologist. Sleep Clinic: [phone] Recommend starting probiotic to help promote healthy gut microbiome -- PB8 is an example of one on [employer] General recommendations: - Healthy diet, routine exercise, good sleep hygiene and stress management are all important for weight loss, in addition to any medications that may be prescribed. - Recommend a daily probiotic (such as Culturelle or Align, or similar) for healthy gut biome - Weigh yourself at least once per week to keep track of progress - Recommend diet/nutrition trackers (food log, MyFitnessPal) and activity trackers (smart watch, etc) - Adequate, good quality sleep is an important part of weight management. We recommend 7-8 hours ofsleep nightly and routine sleep schedules when possible. - For females of child-bearing age: it is not recommended to become while taking medications for weight loss. Please contact our office if you become . *If you are scheduled for a virtual appointment, please have current weight, blood pressure and heart rate available. Blood pressure cuffs can typically be obtained over the counter at any retail pharmacy ([facility], [facility], etc.). Mediterranean Diet: (more than a diet - a lifestyle) Has been shown to reduce arthrosclerotic cardiovascular disease risk and aid weight loss. A Mediterranean diet has been shown to improve glycemic control when compared with control diets (low fat, nonrestricted calorie, low carbohydrate, high carbohydrate, usual diet). Focus on: - olive oil as main source of fat - vegetables, fruits, legumes, whole grains, nuts, and seeds - moderate consumption of seafood, fermented dairy products (less sugar italian yogurt and cheese), poultry, and eggs - moderate intake of red wine Limit / Avoid: - High amounts of red meat, meat products - Ultra processed carbohydrates - Saturated fats - butter, lard - Trans fats PRACTICAL SUGGESTIONS TO INCORPORATE MEDITERRANEAN DIET CATEGORY CONSUME AVOID Fruits and vegetables Wide variety of whole fruits and vegetables; try for at least 7-10 servings per day Vegetables prepared in butter or cream sauce High-fiber breads, cereals, and pasta Whole grain bread and cereal, bran, brown rice Sweets, white bread, biscuits, breadsticks, and other refined carbohydrates Protein that is low in saturated fat Lean cuts of meat (fat trimmed) or poultry (no skin); low-fat dairy foods (skim mild, yogurt) [place], sausage, other processed or high-fat meat, milk or cheese that is not low-fat, ice cream Fish or other source of omega-3 fatty acids, at least 1 or 2 times per week [place], trout, willis,water-packed tuna, mackerel (or fish oil supplement); flaxseed, spinach, walnuts Fried fish ( except when hernandez fried in olive oil) Healthy oils for cooking, salad dressing, and other uses Extra-virgin olive oil, canola oil, flaxseed oil ( high-oleic sunflower or safflower oil may also be an option) [place]-6 oils, (corn, sunflower, safflower, soybean, peanut) Peas, beans, legumes, and nuts Soybeans, lentils, or any kind of peas, beans, or legumes; tree nuts(eg. Almonds,pecans, walnuts, [place]llo nuts) Heavily salted or honey-roasted nuts; stale or rancid nuts Alcohol One 5-oz glass of wine, a 12-oz beer, or a 1.5oz drink containing distilled spirits with the evening meal Limit to no more than 1 drink daily for women, 2 drinks daily for men Fat Emphasize whole, natural foods as above; look for 'trans-fatty acid -free margarine and snack foods Fast food, fried food, margarine, chips, crackers, baked goods, doughnuts, any processed food made with partially hydrogenated oil documented in this [facility] History of Present illness Narrative* Beth Allison APRN.KATHY - 04/08/2024 2:45 PM EDT Images from the original note were not included. [facility] NEW PATIENT VISIT HISTORY OF PRESENT ILLNESS CC: medical weight loss Age: [age] year old female PMH: obesity, anxiety and depression, IFG, PCOS, irregular periods (following with Endocrine - Dr. White), sleep disturbance Referred by: Kameron White MD Consultation requested for an opinion regarding weight management and my final recommendations willbe communicated back to the requesting physician by way of shared medical record or letter via US mail. 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 Poor quality, unrestful sleep: yes Medications may be associated with weight gain: none Diet: 24 hour recall: () B: 6 inch sub from [employer] L: chicken nuggets and fries D: chicken salad pouch, boom mojgan pop popcorn S: cheese Typically day over the last month has been snacking throughout the day Typical beverages: a few glasses lemonade with berries, coffee with cream and sugar Sugar-containing beverages: lemonade, sweetened coffee EtOH: infrequent Eating out/take out: 3x per week (previously was more frequent) -- lost 10 lbs over the last 2 months by reducing this Feel hungry frequently: no Takes more food than average to feel full: yes Feels hungry quickly after eating a meal: yes Eat when not hungry (boredom, stress/emotional): yes d/t any emotion, occurs daily Frequent cravings or preoccupation with food: no Frequently overeating or binge eating: yes, a few times per month Portion control: issues with poriton control Late night or middle of night eating: snack after dinner before bed Exercise/activity level: No structured exercise Sleep: 6-7 hours / night + fatigue Issues with sleep initiation and sleep maintenance + snoring THOMAS: had completed 2 years ago, does not recall results STOP BANG Questionnaire 1. Snoring Do you snore loudly (louder than talking or loud enough to be heard through closed doors)? YES 2. Tired Do you often feel tired, fatigued, or sleepy during daytime? YES 3. Observed Has anyone observed you stop breathing during your sleep? NO 4. Blood Pressure Do you have or are you being treated for high blood pressure? NO 5. BMI BMI more than 35 kg/m2? YES 6. Age Age over 50 yr old? NO 7. Neck circumference Neck circumference greater than 40 cm? YES 8. Gender Gender male? NO * Neck circumference is measured by staff High risk of THOMAS: answering yes to three or more items Low risk of THOMAS: answering yes to less than three items Mood, stress: High stress, sometimes not managable To manage stress will sleep or clean Describes herself as nice Previously on Zoloft for 2 weeks, but was eating marijuana edibles at the same time so discontinuedZoloft d/t side effects Social: Employment: works at [employer] Substance use: shawnee Previous experience with weight loss medications: Bupropion/naltrexone: no Phentermine: no Topiramate: no GLP-1: no Metformin: started 01/2024 for PCOS, but discontinued 04/05 due to side effects (diarrhea) Previous experience with weight loss treatments: History of bariatric surgery or interest in bariatric surgery: thought about it in the past, but initially wants to try lifestyle modifications Participation in a comprehensive weight management program within the last 6 months: no Medical history pertaining to weight loss medications: History of pancreatitis or gallstones: no History of kidney stones: no History of seizures: no Current opiate use: no History of glaucoma: no History of CAD or uncontrolled HTN: no Personal/family history of MEN2, MTC: no History of diabetic retinopathy: no Method of contraception if woman of child bearing age: no Review Of Systems Per HPI MEDICAL, FAMILY, and SOCIAL HISTORY (reviewed and updated in chart) There is no problem list on file for this patient. Current Outpatient Medications on File Prior to Visit Medication Sig metFORMIN ER (GLUCOPHAGE XR) 500 mg 24 hr tablet Take 2 tablets by mouth two times a day with meals. No current facility-administered medications on file prior to visit. PHYSICAL EXAM: BP 127/85 (BP Site: Right Arm, BP Position: Sitting, BP Cuff Size: Regular Adult) Pulse 108 Ht 160.1 cm (5' 3.03 ) Wt 108.3 kg (238 lb 10.4 oz) LMP 04/20/2017 BMI 42.23 kg/m The physical exam listed below was completed and confirmed in its entirety today, 04/08/2024 General: well appearing Neck: supple, no LAD CV: RRR, no murmur Respiratory: breathing comfortably, symmetric chest rise, lungs are CTAB Neuro: speech and language are normal, no obvious deficits Extremities: no edema, warm and well perfused PERTINENT LABORATORY AND IMAGING: All pertinent laboratory / test results were reviewed. Latest Ref Rng 02/01/2024 02/03/2024 Glucose 74 - 99 mg/dL 104 (H) BUN 7 - 21 mg/dL 10 Creatinine 0.58 - 0.96 mg/dL 0.76 Sodium 136 - 144 mmol/L 143 Potassium 3.7 - 5.1 mmol/L 4.1 Chloride 98 - 107 mmol/L 107 CO2 22 - 30 mmol/L 24 Anion Gap 8 - 15 mmol/L 12 Calcium 8.5 - 10.2 mg/dL 9.7 eGFR >=60 mL/min/1.73m 114 Hemoglobin A1C 4.3 - 5.6 % 4.8 Estimated Average Glucose mg/dL 91 Cortisol,ON DEX,Post <1.8 ug/dL 0.4 Dexamethasone ng/dL 315.4 Cortisol Bind Glob, Serum 1.9 - 4.5 mg/dL 2.7 Legend: (H) High Component Ref Range & Units 10/05/18 Cholesterol 150 - 200 mg/dL 152 Triglycerides 27 - 150 mg/dL 187 High HDL Cholesterol >39 mg/dL 29 Low Comment: HDL <40 mg/dL - High Risk HDL > or = 40mg/dL- Desirable HDL >60 mg/dL - Negative Risk VLDL 0 - 30 mg/dL 37 High LDL (calc) <130 mg/dL 86 Comment: LDL <100 mg/dL - Desirable LDL >160 mg/dL - High Risk Cholesterol:HDL Ratio 1.0 - 5.0 5.2 High Component Ref Range & Units 10/05/18 TSH 0.37 - 6.00 uIU/mL 2.05 Component Ref Range & Units 10/05/18 T4, free 0.61 - 1.60 ng/dL 0.82 Component Ref Range & Units 10/05/18 Sodium 134 - 146 mmol/L 140 Potassium 3.5 - 5.0 mmol/L 4.0 Chloride 98 - 109 mmol/L 104 Carbon Dioxide 22 - 32 mmol/L 26 Anion Gap 4 - 12 mmol/L 10 BUN 5 - 23 mg/dL 13 Creatinine 0.30 - 1.00 mg/dL 0.69 Comment: METHOD TRACEABLE TO IDMS STANDARD Glucose 65 - 99 mg/dL 99 Calcium 8.5 - 10.5 mg/dL 10.2 Total Protein 6.0 - 8.0 g/dL 7.7 Albumin 3.2 - 5.3 g/dL 4.5 Alkaline Phosphatase 39 - 130 U/L 65 AST 0 - 41 U/L 18 ALT 0 - 31 U/L 20 Total bilirubin 0.3 - 1.2 mg/dL 0.3 ASSESSMENT: (E66.01) Obesity, Class III, BMI 40-49.9 (morbid obesity) (HCC) (primary encounter diagnosis) (F41.9, F32.A) Anxiety and depression (R73.01) IFG (impaired fasting glucose) (Z79.899) Medication management (Z71.3) Dietary counseling (Z71.82) Exercise counseling - Patient comes today for treatment of overweight/obesity and its comorbidities. Patient has a BMI of 42.23 that is consistent with OBESITY CLASS III. - Patient tried different weight loss modalities in the past including self directed diet and exercise programs. - Pertinent co-morbidities of obesity include anxiety and depression, IFG, PCOS, irregular periods (following with Endocrine - Dr. White), sleep disturbance. - Patient's health and quality of life are compromised due to current weight and patient is motivated for weight loss. Our goal is to treat obesity to decrease long-term medical complications, comorbidities and improve lifestyle. PLAN: - Reviewed principles of energy metabolism, caloric intake and expenditure - Goals: -- 5-10% weight loss over 6 months is reasonable -- At least 6-month commitment to losing weight - Diet: risk factors for overweight/obesity include: irregular eating pattern, eating out frequently (>1 x per week), calorie-dense foods, processed foods, sugary beverages, low fiber diet, emotional/stress eating, and disordered eating behavioirs -- Will refer to endo dietitian to discuss nutrition and identify the best approach and the individualized nutritional plan--low carb mediterranean -- Portion control -- No skipping meals--helps to avoid severe hunger, which can contribute to larger portions, overeating, less healthy dietary choices, etc. - Pharmacotherapy: -- I have reviewed with the patient the possibility of using weight loss medications and the various options available. -- Recommend starting Zepbound 2.5mg weekly x4 weeks. If tolerating, increase Zepbound to 5mg weekly. Patient aware that prior authorization may be required. If not approved by insurance, patient agreeable to trying Wegovy or Saxenda if Zepbound not available. If GLP-1 not covered by insurance, canconsider starting phentermine or Contrave. Use phentermine with caution due to anxiety. Reviewed r/b/a of medication and risks of possibility of weight regain should medication be stopped. There is no personal or family history of MTC, MEN2. No personal history of pancreatitis or active gallbladderdisease. -- Recommend starting probiotic to help promote healthy gut microbiome. -- Reviewed that there are no contraindications to the above medications; discussed expectations and common side effects of the prescribed medications. -- In women of child-bearing age, we reviewed that is not recommended while taking weightloss medications. -- Current weight-promoting medications: none -- Exercise: sedentary -- Discussed basic exercise recommendations, the role of exercise on weight loss and maintenance. Discussed the combination of aerobic and resistance exercise. -- Many patients benefit from a personalized exercise program. Will defer endocrine bonbon cream warmer at this time and patient will focus on self directed exercise routine. -- Recommend gradual increase in exercise. Goal is 150 minutes moderate- intensity exercise per week+ strength training/resistance exercise 2 days per week. -- Sleep: poor, + fatigue, + snoring -- Discussed the importance of sleep hygiene -- Recommend 7-8 hours sleep per night -- Recommend consultation to sleep medicine to rule out THOMAS based on StopBang criteria -- Behavioral: -- Will refer to endocrine psychologist and general psychology. -- Discussed the effect of stress and its relationship with weight gain. Stress management is very important. -- Self monitoring: suggest home weigh-ins at least 1x/week, food journals / trackers (Food log, MyFitness Pal), activity journals / trackers ([place] watch, Fit Bit, ShowMe vivofit, Striiv). Orders placed: Orders Placed This Encounter CONSULT TO PSYCHOLOGY Standing Status: Future Standing Expiration Date: 04/08/2025 Order Specific Question: Does consulting provider have [facility] Epic access? Answer: Yes ENDOCRINOLOGY DIETITIAN VISIT (MNT) Standing Status: Future Standing Expiration Date: 04/08/2025 Scheduling Instructions: Appointment type requested: Mediterranean - low carb This order is valid for 12 months from the date of order. PLEASE SCHEDULE THIS VISIT IN YOUR [employer] ACCOUNT, OR CALL TO SCHEDULE FOLLOWS: [facility] [phone] ALL OTHER [facility] LOCATIONS [phone] Order Specific Question: Does consulting provider have [facility] Epic access? Answer: Yes CONSULT TO SLEEP MEDICINE - ADULT Standing Status: Future Standing Expiration Date: 04/08/2025 Order Specific Question: Does consulting provider have [facility] Epic access? Answer: Yes CONSULT TO ENDOCRINE PSYCHOLOGY (WEIGHT MANAGEMENT) Order Specific Question: Does consulting provider have [facility] Epic access? Answer: Yes DISCONTD: tirzepatide, weight loss (ZEPBOUND) 2.5 mg/0.5 mL pen injector Sig: Inject 2.5 mg subcutaneously one time a week. Dispense: 2 mL Refill: 0 DISCONTD: tirzepatide, weight loss (ZEPBOUND) 5 mg/0.5 mL pen injector Sig: Inject 5 mg subcutaneously one time a week. Start after completing 2.5mg dose. Patient should start on May 09, 2024. Dispense: 2 mL Refill: 2 I have reviewed the ROS/Questionnaire with patient and recommend the following: Pt will follow-up with PCP for chronic health issues and preventive health screenings. Follow-up in 3 months Medical Decision Making: Problems: Moderate: 1+ chronic illnesses with change Data: Unique source(s) for external note(s) reviewed: 3+ Unique test result(s) reviewed: 3+ Risk: Moderate: Drug management Medical Decision Making Level: 4 - Moderate All questions answered today. Beth Allison APRN.KATHY documented in this encounter[facility]09-[facility] Telephone encounter Note * Telephone Encounter - Jackie Espinoza MA - 03/10/2024 3:12 PM EDT Per PPJ, she will No Charge the appointment- she can call [facility] to see if they have a financial assist or can do a payment plan [facility] [id number] Miscellaneous Notes* Telephone Encounter - Jackie Espinoza MA - 03/10/2024 3:12 PM EDT Per PPJ, she will No Charge the appointment- she can call [facility] to see if they have a financial assist or can do a payment plan * Telephone Encounter - Megan Walker MD - 03/10/2024 2:18 PM EDT nc * Telephone Encounter - Terri Mcrae MA - 03/10/2024 2:04 PM EDT Spoke to pt. Highly encouraged to keep appt for repeat pap to make sure result does not progress. Pt states she is currently having trouble with [facility] financial assistance and can't afford a copay at this time. Pt would also be billed from [facility] for the processing of the pap. Advised would discuss with PPJ- but plan to keep appt as scheduled for now. * Telephone Encounter - Emilio Calderon - 03/10/2024 1:52 PM EDT Pt called and wanted to know if she needed her repeat pap or if she could cancel it documented in this encounterThree Rivers [id number] Telephone encounter Note* Telephone Encounter - Megan Walker MD - 03/10/2024 2:18 PM EDT nc [facility] Work Phone: [phone] 496-834209-05-2024 Telephone encounter Note* Telephone Encounter - Terri Mcrae MA - 03/10/2024 2:04 PM EDT Spoke to pt. Highly encouraged to keep appt for repeat pap to make sure result does not progress. Pt states she is currently having trouble with [facility] financial assistance and can't afford a copay at this time. Pt would also be billed from [facility] for the processing of the pap. Advised would discuss with PPJ- but plan to keep appt as scheduled for now. [facility] [id number] Telephone encounter Note* Telephone Encounter - Emilio Calderon - 03/10/2024 1:52 PM EDT Pt called and wanted to know if she needed her repeat pap or if she could cancel it [facility] [id number] History of Present illness Narrative* Emerald Phil Aldana, CAN OPERATOR-FUEL STORAGE TECHNICIAN - 03/09/2024 2:30 PM EDT Images from the original note were not included. Shaneka Nugent is a 23 y.o. female presents for Medication Management. HPI: Patient is here for medication follow up. Patient states she was feeling weird and patient called in. Started two weeks ago zoloft. Had a edible marijuana Fri and felt high and weird and missed Thu and Thursday of work. Discussed risks of using cannabis and taking medications. This am felt a little odd. Was talking and didn't know if was talking or not. Mood is reported as depressed and rates 7 (10worst). Anxiety is 2 (10worst). Sleep varies. I 've always had trouble sleeping. Medication compliant. reported side effects suspect combination of zolfot and cannabis. . Denies abuse of substances. Medical problems since last visit. Psychosocial stressors include financial. SUBJECTIVE: PAST MEDICAL HISTORY: Past Medical History: Diagnosis Date Allergic rhinitis 08/18/2023 Alopecia 08/18/2023 Anxiety and depression (CMS/HCC) 08/18/2023 meds in the past: sertraline, fluoxetine, trazodone, abilify Breakthrough bleeding on Nexplanon COVID-19 virus detected 06/19/2022 tested positive Depression (CMS/HCC) 08/18/2023 Hyperinsulinemia Insomnia Mood disorder (CMS/HCC) Morbid obesity with BMI of 40.0-44.9, adult (CMS/HCC) Polycystic ovary syndrome Sleep difficulties Torus palatinus Polycystic Ovarian Disease; pt had seen home care and home health aides 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 ALLERGIES: Allergies Allergen Reactions Lamictal [Lamotrigine] Rash SURGICAL HISTORY: Past Surgical History: Procedure Laterality Date NO PAST SURGERIES OTHER SURGICAL HISTORY 08/2019 Nexplanon inserted (Dr Houston) FAMILY HISTORY: Family History Problem Relation Name Age of Onset Hypertension Mother Darby lyudmila Depression Father Other (anxiety) Father Crohn's disease Father No Known Problems Sister No Known Problems Maternal Grandfather Ovarian cancer Maternal Grandmother Jacqui No Known Problems Paternal Grandfather Depression Paternal Grandmother Other (blood clots) Other paternal side SOCIAL HISTORY: Social History Tobacco Use Smoking status: Never Smokeless tobacco: Never Vaping Use Vaping status: Never Used Substance Use Topics Alcohol use: Yes Alcohol/week: 1.0 standard drink of alcohol Types: 1 Standard drinks or equivalent per week Comment: caffeine intake: daily either coffee or pop Drug use: Yes Types: Marijuana Comment: Occasionally Depression: Not at risk (11/24/2023) PHQ-2 PHQ-2 Score: 2 REVIEW OF SYMPTOMS - MENTAL STATUS EXAM Appearance Appearance: Casual dress, normal grooming and hygiene Attitude Attitude: Cooperative, conversant, engaged, and with good eye contact. Behavior Cooperative, conversant, engaged, and with good eye contact. Speech Normal, clear, regular rate, rhythm and volume Affect full affect appropriate with mood Mood Depressed and Anxious Thought Process Organized and Clear Thought Content No Suicidal Ideation and No Homicidal ideation Perception No perceptual abnormalities noted Orientation Appropriate to age, Person, Place, and Time Memory/Concentration Short term intact and senior living intact Insight/Judgement Fair OBJECTIVE: Visit Vitals OB Status Having periods Smoking Status Never Lab Results Component Value Date TSH 1.53 09/29/2023 Lab Results Component Value Date GLU 104 (H) 02/01/2024 CALCIUM 9.7 02/01/2024 CO2 24 02/01/2024 BUN 10 02/01/2024 CREATININE 0.76 02/01/2024 Lab Results Component Value Date WBC 6.0 10/05/2018 No results found for: CHOL No results found for: HDL No results found for: LDLCALC Lab Results Component Value Date TRIG 187 (H) 10/05/2018 ASSESSMENT AND PLAN: Assessment/Plan Major depression, recurrent, moderate General Anxiety Disorder Cannabis abuse Insomnia R/O dysthymia Psych Medication List zoloft 50mg po daily -patient has taken in past. Recommend no cannabis Consider starting trazodone next visit to target difficulty with sleep Psychotherapy-Would like to continue with Pedrito Hadley May have note to excuse from work for 03/06-03/07/24 Note: Hx of rash after lamictal increased Patient was seen Face to Face, Reviewed chart documents and documentation, Visit time : 21min F/U 4 weeks documented in this encounterThree Rivers [id number] History of Present illness Narrative* Liudmila Hadley, [facility] - 03/02/2024 3:00 PM EDT Updated assessment, client is previous patient. Problem: Client was joined in session with her boyfriend to help explain her up and down moods and irritations. Client reports she feels like she has ashort fuse and is often irritable. Client reports she does not like it when something does not go the way she thought it would. Client reports she struggles with being able to talk about her emotionsand feelings. Client reports growing up she never learned from her parents how to process and handle emotions well and there were a lo of conflicts and yelling in her house. Client reports she feels like she often shuts down and does not want to say anything mean or hurtful in the moment. Client's boyfriend reports that he likes to talk about things right away and she needs time to process them when they disagree with one another. He reports she often gets agitated at him and can get angry quickly. Client reports she had a miscarriage and was very sad and upset about it. Client reports she has also had daniel finance stressors and job stressors. She reports she was working at [employer] and left there and worked at [employer] for a week and then recently got a job at [employer]. She reports it is fine for now but does not really enjoy it. Client reports she and her boyfriend recently [place]a [place] the same park as her family and hr other often comes down, which bothers client at times. Client reports she struggles with boundaries. Client denies suicidal ideations. Client reports she recently started taking medication to help manager location her moods and it has only been a week of taking them but no side effects. Client reports she does not have many friends and she mainly is with lauraienmary. Living Situation: Lives with her boyfriend Family: Mother, father, little sister Occupation: [employer] Medical Conditions: Refer to medical chart Medications: Refer to chart Drug/Alcohol: Denies Social Supports: Boyfriend, mother Depression: Feels down at times, withdrawn, sad, loss of energy and motivation Sleep Pattern: Difficult to fall asleep at times Appetite: Average Hygiene: Good Anger/Aggression: Irritable easily Hyperactivity/Attention: Denies Goals for Counseling: Work on managing moods and communication Mental Health Status Exam Appearance: Well groomed, appropriate eye contact. Behavior: cooperative Affect: Euthymic, full-range Hallucination: no Judgement: Appropriate to age Knowledge: Fair Language: Appropriate to age Orientation: Appropriate to age Speech: Coherent and Regular rate, rhythm, volume and articulation Thought Associations: No loose thoughts Thought Process: Abstract reasoning appropriate to age Thought Content: Within normal limits Sleep: has difficulty falling asleep Perception: No perceptual abnormalities noted Delusions: none Insight: Age appropriate Mood: within normal limits Suicidality: none Homicide: No significant risk factors identified on screening Diagnosis: Client has been diagnosed with a mood disorder by her prescribing physician due to periods of feeling very low, very irritable, withdrawn, lack of energy and motivation, and cycling of moods and can be triggered very easily and have intense anger. documented in this encounterThree Rivers [id number] History of Present illness Narrative* Emerald Morgan, CAN OPERATOR-FUEL STORAGE TECHNICIAN - 02/25/2024 9:30 AM EDT NEW PATIENT PSYCHIATRIC EVALUATION HPI This is a 23-year-old female who was referred by her primary care physician for medication management of depression and anxiety. Patient reports, I've tried different depression meds and they havent't worked. Patient then proceeded to say that she had tried as long as she could not take medications as she was hoping to get . She felt she was now at the point where she felt that she needed something for her mood. Feels easily angered and will yell. Hx of Previously being diagnosed with a mood disorder by PCP. She had also received counseling from the ages of 16 through approximately 20 years of age by Jessica. Med trials Effexor and abilify worked, but then got . Prozac which she felt initially had helped Then stopped working. She had also tried Zoloft felt it helped at 1st and then it stopped working. She had also taken Effexor and Abilify she had stopped due to . She does report havinga rash from Lamictal. Currently she is not taking any psychotropic medications. Denies hx of Psychiatric hospitalizations. Sleeping 2-10 hours. Slept 3 hours last night due to fight with boyfriend. Mind often races at night. Endorses, Anxiety and rates a 7 (10 is worst). Symptoms of anxiety include:excessive worry, restlessness, on edge, poor concentration, mind going blank, irritability, muscle tension, sleep disturbance Hx of having one panic attack and went to ER - chest pain, difficulty breathing. No further panic attacks. Patient states her depression has never remitted and currently rates a 9(10 worst). First episode of depression was age 16 received counseling, but Wasn't medicated til age 20. Symptoms of depression include: Sad mood, anhedonia, isolation, poor sleep, difficulty falling asleep, staying asleep, appetite fluctuates, poor concentration, irritability, Fatigue, worthlessness, guilt, hopeless, helpless, decrease sex drive, crying spells, suicidal ideation no plan, or intent I have an 8 yr old sister I couldn't do that to her. No previous attempts. Triggers: not known Denies rashmi or hypomania. Denies PTSD. Endorses Social anxiety. Feels anxious when in a group of people and feels like othersare judging her.Does not like going places. Has to have house in order. Denies symptoms that meet criteria for OCD. Denies Psychotic Symptoms. Denies hx ADHD. Reports that in school she had a C average. In HS slept thru some classes. Patient stated family psychiatric history includes: Pgrandmother -Bipolar Disorder. Father suffers from depression and anxiety and she thinks he is taking sertraline. Mother has mood swings, easily agitated. Sister who is 8 yrs old is diagnosed withADHD. Denies Hx of Substance abuse Frequency of Alcohol once a month 1-2 drinks. Marijuana use is once a week. From dispensary. No legal hx Patient is single and has a significant other. Boyfriend is in school. Just moved into their mobilehome. Hx of miscarriage last May 2023. Has been trying to have children with her boyfriend. Dx PCOS She was trying not to take medications because of this. Now states that she would like to start medication again as she has found her symptoms to be unbearable. Works at [employer]. Has been there two weeks. Lives with boyfriend and family lives close. Main stressors are: financial. Review of Systems/ Mental Status exam APPEARANCE: groomed, neatly dressed Abnormal body movements: none ATTITUDE: cooperative Attention: good focus and concentration BEHAVIOR: Appropriate with good eye contact. MOTOR ACTIVITY: No psychomotor agitation SPEECH: clear, regular rate, rhythm, volume MOOD: depressed and anxious AFFECT: Full range THOUGHT PROCESS: organized, clear THOUGHT CONTENT: Denies suicidal or homicidal ideation. No preoccuppations THOUGHT PERCEPTION: Denies a/v hallucinations, no evidence of delusions. COGNITION: Alert and oriented x3 MEMORY:No deficit in recent and remote memory INSIGHT:Good.Patient recognizes symptoms of illness and need for recommended treatments JUDGEMENT: Able to make decisions about ordinary activities of daily living. Impression This is a 23-year-old female who was referred by her primary care physician for medication management of depression and anxiety. Patient reports, I've tried different depression meds and they havent't worked. Patient then proceeded to say that she had tried as long as she could not take medications as she was hoping to get . She felt she was now at the point where she felt that she needed something for her mood. Med trials Effexor and abilify worked, but then got . Prozac which she felt initially had helped Then stopped working. She had also tried Zoloft felt it helped initially then it stopped working. She had also taken Effexor and Abilify she had stopped due to . She does report having a rash from Lamictal. Discussed medication safety if patient becomes . Diagnosis Major depression, recurrent, moderate General Anxiety Disorder R/O dysthymia Plan Medications Start zoloft 50mg po daily -patient has taken in past. Psychotherapy-Would like to continue with [facility] Note: Hx of rash after lamictal increased F/U 5 weeks to assess response to zoloft Minutes in Direct clinical care and documentation 80min F/U 5 weeks documented in this encounterThree Rivers [id number] History of Present illness Narrative* Renita Cristobal RT(R) - 02/16/2024 8:00 AM EDT Radiology Service Progress Note DATE OF SERVICE: February 16, 2024 TIME: 9:22 AM PATIENT IDENTITY VERIFICATION COMPLETED USING TWO (2) STANDARD IDENTIFIERS: Name and Date of confirmed by patient verbally. FALL SCREENING: Has the patient had 2 falls in the last year or 1 fall with injury or currently using an Ambulatory Assistive Device (Walker, Cane, Wheelchair, Crutches, etc.)? No PATIENT GENDER DATA: Female. status: : No status: NO. PATIENT RELEVANT IMPLANT DATA REVIEWED: Yes PATIENT PRESENTS WITH AN IMPLANTABLE OR ATTACHED SOFTWARE DESIGNER: No ALLERGIES: Reviewed and unchanged CONTRAST ALLERGY: NO. EXAM: CT -CONTRAST INDUCED NEPHROPATHY RISK FACTORS: Not applicable CREATININE: Creatinine Date Value Ref Range Status 02/01/2024 0.76 0.58 - 0.96 mg/dL Final Estimated Glomerular Filtration Rate Date Value Ref Range Status 02/01/2024 114 >=60 mL/min/1.73m Final Comment: Estimated Glomerular Filtration Rate (eGFR) is calculated using the 2020 CKD-EPI creatinine equation. This equation utilizes serum creatinine, sex, and age as parameters. The creatinine assay has traceable calibration to isotope dilution- mass spectrometry. Refer to KDIGO guidelines for clinical interpretation. In patients with unstable renal function, e.g. those with acute kidney injury, the eGFRmay not accurately reflect actual GFR. P.O.C.T. RESULTS: POC done: Yes, See Lab Tab February 16, 2024 TREATMENT: N/A PERIPHERAL IV DATA: Ambulatory: A peripheral IV was started in the Right antecubital site with a Angio cath: 20 gauge. RADIOLOGY DEPARTMENT: CT; Exam(s) Completed: Adrenal SIGNATURE: RT Cindy(Kassidy) PATIENT NAME: Shaneka Nugent DATE: February 16, 2024 TIME: 9:22 AM documented in this encounterSelect [facility]24 NoteHNO ID: [id number] Author: RENITA CRISTOBAL RT(R) Service: Radiology Author Type: Machine Stapler Type: Progress Notes Filed: 02/16/2024 09:23 Note Text: Radiology Service Progress Note DATE OF SERVICE: February 16, 2024 TIME: 9:22 AM PATIENT IDENTITY VERIFICATION COMPLETED USING TWO (2) STANDARD IDENTIFIERS: Name and Date of confirmed by patient verbally. FALL SCREENING: Has the patient had 2 falls in the last year or 1 fall with injury or currently using an Ambulatory Assistive Device (Walker, Cane, Wheelchair, Crutches, etc.)? No PATIENT GENDER DATA: Female. status: : No status: NO. PATIENT RELEVANT IMPLANT DATA REVIEWED: Yes PATIENT PRESENTS WITH AN IMPLANTABLE OR ATTACHED SOFTWARE DESIGNER: No ALLERGIES: Reviewed and unchanged CONTRAST ALLERGY: NO. EXAM: CT -CONTRAST INDUCED NEPHROPATHY RISK FACTORS: Not applicable CREATININE: Creatinine Date Value Ref Range Status 02/01/2024 0.76 0.58 - 0.96 mg/dL Final Estimated Glomerular Filtration Rate Date Value Ref Range Status 02/01/2024 114 >=60 mL/min/1.73m? Final Comment: Estimated Glomerular Filtration Rate (eGFR) is calculated using the 2020 CKD-EPI creatinine equation. This equation utilizes serum creatinine, sex, and age as parameters. The creatinine assay has traceable calibration to isotope dilution-mass spectrometry. Refer to KDIGO guidelines for clinical interpretation. In patients with unstable renal function, e.g. those with acute kidney injury, the eGFR may not accurately reflect actual GFR. P.O.C.T. RESULTS: POC done: Yes, See Lab Tab February 16, 2024 TREATMENT: N/A PERIPHERAL IV DATA: Ambulatory: A peripheral IV was started in the Right antecubital site with a Angio cath: 20 gauge. RADIOLOGY DEPARTMENT: CT; Exam(s) Completed: Adrenal SIGNATURE: RT Cindy(R) PATIENT NAME: Shaneka Nugent DATE: February 16, 2024 TIME: 9:22 [facility]07-25-2024 Instructions* Patient Instructions* Kameron White MD - 01/28/2024 1:09 PM EDT Start Metformin Extended Release 500mg - 1 tablet after dinner for 1 week, then if feeling ok increase to 1 tablet after breakfast and 1 tablet after dinner for 1 week, then if tolerating increase to1 tablet after breakfast and 2 tablets after dinner for 1 week, then if tolerating increase to 2 tablets after breakfast and 2 tablets after dinner -if you have upset stomach, nausea, or diarrhea that does not go away after a week, go back to the previous dose that you could tolerate and stay on that dose Please get fasting 8am blood test documented in this encounterSelect [facility]07-25-2024 History of Present illness Narrative* Kameron White MD - 01/28/2024 12:30 PM EDT Shaneka Nugent is a 23 year old female, referred by Dr Walker for evaluation of hyperandrogenism Has been trying to get , had miscarriage in May. Had a blood test that showed high DHEA-S. Tried metformin IR but has N/V/D. Had Nexplanon but removed 11/25, used to take spironolactone for hair loss but not since 2017. Notes periods were fairly regular until 5 months ago, since then notes her periods start with brown spotting and then 2-3 days of light bleeding, though still monthly. Hirsutism: a little bit on belly, nothing new Acne: a little worse last couple years but not too bad Hair loss: going on for years Irregular Menses: see above OCP: No Metformin: as above Spironolactone: No Menarche: age 12-15yo Voice Change: No Skin changes: No Easy bruising: No Proximal weakness: No Sweats: occasional Galactorrhea: No Infertility Hx: Yes, was trying to get for almost a year before she was and had miscarriage at 4-6 weeks, since then sexually active but no control Hx of Obesity: in early 2022 she was 210 lbs, so up about 30-35 lbs Herbal preparations: inositil and NAC for a couple weeks, then stopped Mineral Supplements: No All other Review of Systems reviewed and are negative. Family History of Hirsutism, Thyroid or Adrenal Disorders: PGM had pituitary issue and maternal aunt had thyroid cancer No past medical history on file. No family history on file. Social History Tobacco Use Smoking status: Never No outpatient medications have been marked as taking for the 01/28/24 encounter (Office Visit) with Kameron White MD. Lives with boyfriend and his mother, works at [employer], no tobacco, rare EtOH OBJECTIVE: BP 130/75 Pulse 96 Ht 157.5 cm (5' 2 ) Wt 110.9 kg (244 lb 6.1 oz) LMP 04/20/2017 BMI 44.70 kg/m Last 3 Encounter Wt Readings: Date: Wt: 01/28/2024 110.9 kg (244 lb 6.1 oz) 07/24/2017 86.7 kg (191 lb 2.2 oz) (98%, Z= 2.05)* 07/24/2017 86.7 kg (191 lb 3.2 oz) (98%, Z= 2.05)* Gen - pleasant, NAD, mildly cushingoid, Yes obesity HEENT - No male-pattern balding, no thyromegaly, no SC/DC fat pads, Yes acanthosis CVS - RRR no murmurs Abd - +BS, soft, nt/nd, +pink striae (new in last month per pt) MSK - 5/ UE proximal muscle strength Neuro - normal relaxation phase of UE DTRs, no tremor Skin - mild facial acne, no bruising noted, normal temp/texture, No skin tags Hair - no observed hirsutism OSH Labs: 10/13/23 at 3pm - Cortisol 21.2, DHEA-S 337, 17-OH progesterone 33 09/29/23 at 2pm - Cortisol 12.5, DHEA-S 411, TSH 1.53, Testosterone 33, Free Testosterone 4.5, Estradiol 114, Estrone 86, SHBG 40, LH 2.1, FSH 3.5 10/05/18 - TSH 2.05, FT4 0.82 US Pelvis 09/08/23: The uterus is normal in size, contour and echotexture measuring 7.9 x 4.9 x 3.0cm. Normal color Doppler flow. The uterus is anteflexed. Endometrium measures 6.8 mm, normal. The right ovary is normal measuring 3.0 x 2.1 1.8 cm. Normal color and Doppler flow. Multiple peripheral subcentimeter follicles The left ovary is normal in size, contour and echotexture measuring 2.7 x 1.8 x 1.4 cm. Normal color Doppler flow. Multiple peripheral subcentimeter follicles No free fluid US/US pelvis transvaginal IMPRESSION: Bilateral peripheral subcentimeter follicles, consider polycystic ovarian morphology Shaneka was seen today for new pt. Diagnoses and all orders for this visit: Irregular periods -likely has PCOS due to underlying insulin resistance but also has some possible cushingoid features -check fasting 8am labs for further evaluation -after that will plan 1mg dexamethasone suppression test to r/o [place]'s syndrome -unable to tolerate regular metformin but will try metformin ER as this could improve fertility chances in PCOS and improve insulin resistance and weight; start metformin ER 500mg daily x 1 week, then increase by 500mg/day weekly as tolerated until at max dose of 1000mg BID -referral to weight management as below, as weight loss would also improve underlying insulin resistance - BASIC METABOLIC PANEL; Future - HEMOGLOBIN A1C; Future - PROLACTIN; Future - TESTOSTERONE, TOTAL; Future - DHEA-S BLD; Future - metFORMIN ER (GLUCOPHAGE XR) 500 mg 24 hr tablet; Take 2 tablets by mouth two times a day with meals. - ACTH BLD; Future Class 3 severe obesity with body mass index (BMI) of 40.0 to 44.9 in adult, unspecified obesity type, unspecified whether serious comorbidity present (HCC) -will request consultation at the obesity and medical weight management center for their special expertise, to determine the best approach for management of this condition - ENDOCRINE MEDICAL WEIGHT MANAGEMENT; Future F/u prn The assessment and benefits/risks of the plan were discussed with the patient who expressed understanding and was agreeable to that which is noted above. This consult note is being shared with the referring provider via fax documented in this encounterSelect [facility]02-13-2024 History of Present illness Narrative* Ying Reid NP - 08/18/2023 9:53 AM ESTAssociated Problem(s): Laryngitis Tylenol, motrin prn Warm salt water gargles Add zithromax Fu if not better * Ying Reid NP - 08/18/2023 9:52 AM ESTAssociated Problem(s): COVID-19 virus detected + at home test in last 14 days Feeling better still with laryngitis * THELMA GUDINO - 08/18/2023 9:20 AM EST Pt had covid 2 weeks ago. Has dry cough. Lost voice about 1 1/2 weeks ago. Pt is having a little bit of SOB * Ying Reid NP - 08/18/2023 9:20 AM EST Images from the original note were not included. Shaneka Nugent is a 23 y.o. female presents with chief complaint of No chief complaint on file. HPI: Had COVID about 10-12 days ago, 5 days in developed laryngitis, still persisting, mild sore throat,no sinus congestion, no ear pain No fever, [...] rhinitis 08/18/2023 Alopecia 08/18/2023 Anxiety and depression ([facility]/HCC) 08/18/2023 meds in the past: sertraline, fluoxetine, trazodone, abilify Breakthrough bleeding on Nexplanon COVID-19 virus detected 06/19/2022 tested positive Depression (CMS/HCC) 08/18/2023 Hyperinsulinemia Insomnia Mood disorder ([facility]) Morbid obesity with BMI of 40.0-44.9, adult ([facility]) Polycystic ovary syndrome Torus palatinus Polycystic Ovarian Disease; pt had seen home care and home health aides teacher and not a confirmed dx at this [...] Morbid obesity with BMI of 40.0-44.9, adult ([facility]) COVID-19 virus detected + at home test in last 14 days Feeling better still with laryngitis Laryngitis - Primary Tylenol, motrin prn Warm salt water gargles Add zithromax Fu if not better Relevant Medications azithromycin (Zithromax) 250 MG tablet documented in this encounterThree Rivers [id number] Evaluation note* Encounter Date Diagnosis Assessment Notes Treatment Notes Treatment Clinical Notes Dec, Contact with and (bartlett spected) exposure to other viral communicable diseases (ICD-10 - Z20.828) Dec,llergic conjunctivitis of right eye (ICD-10 - H10.11)Use the eyedrops as prescribed until your symptoms improve. Continue take Zyrtec and DayQuil for your symptoms. Follow-up with your family physician if no improvement in 2 to 3 days. Dec,llergic rhinitis, unspecified (ICD-10 - J30.9) Dec,therAdditional time spent conducting pre-visit phone call, screening for symptoms, instructions on social distancing, application and removal of PPE, and cleaning of examination room, equipment and supplies was preformed. Patient education given for testing methodology and results. Patient care instructions given in writting by [facility] document. [employer] Other 01-10-2022 Evaluation note* Encounter Date Diagnosis Assessment Notes Treatment Notes Treatment Clinical Notes Jul, Encounter for screening for othe r viral diseases (ICD-10 - Z11.59) Jul,2Other Additional time spent conducting pre-visit phone call, screening for symptoms, instructions on social distancing, application and removal of PPE, and cleaning of examination room, equipment and supplies was preformed. Patient education given for testing methodology and results. Patient care instructions given in writting by [employer] [facility] document. Additional time spent conducting pre-visit phone call, screening for symptoms, instructions on social distancing, application and removal of PPE, and cleaning of examination room, equipment and supplies was preformed. Patient education given for testing methodology and results. Patient care instructions given in writting by [employer] [facility] document. [employer] Other 11-11-2021 Evaluation note* Encounter Date Diagnosis Assessment Notes Treatment Notes Treatment Clinical Notes May, Contact with and (bartlett spected) exposure to other viral communicable diseases (ICD-10 - Z20.828) May,OVID-19 (ICD-10 - U07.1) Rapid COVID test performed [...] she changes her mind for rx. Tylenol/Motrin asneeded for body aches/fever. Increase fluids and rest. [...] treatment plan. Patient left in stable condition May,OtherAdditional time spent conducting pre-visit phone call, screening for symptoms, instructions on social distancing, application and removal of PPE, and cleaning of examination room, equipment and supplies was preformed. Patient education given for testing methodology and results. Patient care instructions given in writting by [employer] [facility] document [employer] Other Consult note* Clinical Note Date No Information [facility] Work Phone: Discharge summary* Clinical Note Date No Information [facility] Work Phone: Evaluation note* Diagnosis Laryngitis- Primary Acute laryngitis, without mention of obstruction Morbid obesity with BMI of 40.0-44.9, adult ([facility]) COVID-19 virus detected documented [facility] noteNo assessment information availableUniversity [facility]als [facility] Work Phone: Evaluation note* Diagnosis Irregular periods- Primary Irregular menstrual cycle Class 3 severe obesity with body mass index (BMI) of 40.0 to 44.9 in adult, unspecified obesity type, unspecified whether serious comorbidity present ([facility]) documented in this encounter [facility]* Diagnosis Elevated testosterone level- Primary [facility]* Diagnosis Elevated testosterone level documented in this encounter [facility] note* Diagnosis Obesity, Class III, BMI 40-49.9 (morbid obesity) ([facility])- Primary Morbid obesity [facility]* Diagnosis Obesity, Class III, BMI 40-49.9 (morbid obesity) ([facility])- Primary Morbid obesity Anxiety and depression Dysthymic disorder IFG (impaired fasting glucose) Impaired fasting glucose Medication management Encounter for long-term (current) use of other medications Dietary counseling Dietary surveillance and counseling Exercise counseling Disturbance in sleep behavior Sleep disturbance, unspecified documented in this encounter [facility] note* Diagnosis Obesity, Class III, BMI 40-49.9 (morbid obesity) ([facility])- Primary Morbid obesity documented in this encounter [facility] note* Diagnosis Obesity, Class III, BMI 40-49.9 (morbid obesity) ([facility]) Morbid obesity documented in this encounter [facility] note* Diagnosis Laryngitis- Primary Acute laryngitis, without mention of obstruction Morbid obesity with BMI of 40.0-44.9, adult ([facility]/HCC) COVID-19 virus detected Insomnia, unspecified type- Primary Anxiety and depression ([facility]) Morbid obesity with BMI of 40.0-44.9, adult ([facility]) Mood disorder ([facility])- Primary Unspecified episodic mood disorder Obesity, morbid, BMI 40.0-49.9 ([facility]) Frequent nosebleeds Other chest pain- Primary Morbid obesity with BMI of 40.0-44.9, adult ([facility]/HCC) Anxiety and depression (CMS/HCC) Mood disorder (CMS/HCC)- Primary Unspecified episodic mood disorder Other chest pain Obesity, morbid, BMI 40.0-49.9 (CMS/HCC) Polycystic ovary syndrome Polycystic ovaries Rash and nonspecific skin eruption- Primary Rash and other nonspecific skin eruption Obesity, morbid, BMI 40.0-49.9 (CMS/HCC) Mood disorder (CMS/HCC) Unspecified episodic mood disorder Paresthesia of foot, bilateral Anxiety and depression (CMS/HCC)- Primary Hyperinsulinemia Obesity, morbid, BMI 40.0-49.9 (CMS/HCC) Mood disorder (CMS/HCC) Unspecified episodic mood disorder Obesity, morbid, BMI 40.0-49.9 (CMS/HCC)- Primary Strain of thoracic back region documented in this encounter [facility]* Diagnosis Laryngitis- Primary Acute laryngitis, without mention of obstruction Morbid obesity with BMI of 40.0-44.9, adult ([facility]) COVID-19 virus detected Insomnia, unspecified type- Primary Anxiety and depression (CMS/HCC) Morbid obesity with BMI of 40.0-44.9, adult ([facility]) Mood disorder (CMS/HCC)- Primary Unspecified episodic mood disorder Obesity, morbid, BMI 40.0-49.9 (CMS/HCC) Frequent nosebleeds Other chest pain- Primary Morbid obesity with BMI of 40.0-44.9, adult ([facility]/HCC) Anxiety and depression (CMS/HCC) Mood disorder (CMS/HCC)- Primary Unspecified episodic mood disorder Other chest pain Obesity, morbid, BMI 40.0-49.9 (CMS/HCC) Polycystic ovary syndrome Polycystic ovaries Rash and nonspecific skin eruption- Primary Rash and other nonspecific skin eruption Obesity, morbid, BMI 40.0-49.9 (CMS/HCC) Mood disorder (CMS/HCC) Unspecified episodic mood disorder Paresthesia of foot, bilateral Anxiety and depression (CMS/HCC)- Primary Hyperinsulinemia Obesity, morbid, BMI 40.0-49.9 (CMS/HCC) Mood disorder (CMS/HCC) Unspecified episodic mood disorder Obesity, morbid, BMI 40.0-49.9 (CMS/HCC)- Primary Strain of thoracic back region Encounter for supervision of normal first in first trimester Encounter for drug screening documented in this encounter [facility]* Diagnosis Mood disorder (CMS/HCC) Unspecified episodic mood disorder Moderate episode of recurrent major depressive disorder (HCC) (CMS/HCC) documented in this encounter [facility]* Diagnosis Other insomnia Moderate episode of recurrent major depressive disorder (HCC) (CMS/HCC) documented [facility]* Diagnosis Mood disorder (CMS/HCC) Unspecified episodic mood disorder [facility]* Diagnosis Laryngitis- Primary Acute laryngitis, without mention of obstruction Morbid obesity with BMI of 40.0-44.9, adult ([facility]) COVID-19 virus detected Insomnia, unspecified type- Primary Anxiety and depression (CMS/HCC) Morbid obesity with BMI of 40.0-44.9, adult ([facility]/HCC) Mood disorder (CMS/HCC)- Primary Unspecified episodic mood disorder Obesity, morbid, BMI 40.0-49.9 (CMS/HCC) Frequent nosebleeds Other chest pain- Primary Morbid obesity with BMI of 40.0-44.9, adult (CMS/HCC) Anxiety and depression (CMS/HCC) Mood disorder (CMS/HCC)- Primary Unspecified episodic mood disorder Other chest pain Obesity, morbid, BMI 40.0-49.9 (CMS/HCC) Polycystic ovary syndrome Polycystic ovaries Rash and nonspecific skin eruption- Primary Rash and other nonspecific skin eruption Obesity, morbid, BMI 40.0-49.9 (CMS/HCC) Mood disorder (CMS/HCC) Unspecified episodic mood disorder Paresthesia of foot, bilateral Anxiety and depression (CMS/HCC)- Primary Hyperinsulinemia Obesity, morbid, BMI 40.0-49.9 (CMS/HCC) Mood disorder (CMS/HCC) Unspecified episodic mood disorder Obesity, morbid, BMI 40.0-49.9 (CMS/HCC)- Primary Strain of thoracic back region 12 weeks gestation of Encounter for supervision of normal first in first trimester LGSIL of cervix of undetermined significance Encounter for screening for cervical cancer care, subsequent in first trimester Screening for genetic disease carrier status Screen for STD (sexually transmitted disease) Screening examination for venereal disease documented in this encounter [facility]* Diagnosis Laryngitis- Primary Acute laryngitis, without mention of obstruction Morbid obesity with BMI of 40.0-44.9, adult ([facility]) COVID-19 virus detected Insomnia, unspecified type- Primary Anxiety and depression (CMS/HCC) Morbid obesity with BMI of 40.0-44.9, adult ([facility]) Mood disorder ([facility]/HCC)- Primary Unspecified episodic mood disorder Obesity, morbid, BMI 40.0-49.9 ([facility]/HCC) Frequent nosebleeds Other chest pain- Primary Morbid obesity with BMI of 40.0-44.9, adult ([facility]) Anxiety and depression (CMS/HCC) Mood disorder (CMS/HCC)- Primary Unspecified episodic mood disorder Other chest pain Obesity, morbid, BMI 40.0-49.9 (CMS/HCC) Polycystic ovary syndrome Polycystic ovaries Rash and nonspecific skin eruption- Primary Rash and other nonspecific skin eruption Obesity, morbid, BMI 40.0-49.9 ([facility]/HCC) Mood disorder ([facility]/HCC) Unspecified episodic mood disorder Paresthesia of foot, bilateral Anxiety and depression ([facility]/HCC)- Primary Hyperinsulinemia Obesity, morbid, BMI 40.0-49.9 ([facility]/HCC) Mood disorder ([facility]/HCC) Unspecified episodic mood disorder Obesity, morbid, BMI 40.0-49.9 ([facility]/HCC)- Primary Strain of thoracic back region Weight loss, abnormal- Primary 17 weeks gestation of Second trimester state, incidental Nonintractable headache, unspecified chronicity pattern, unspecified headache type documented in this encounter [facility]* Diagnosis Laryngitis- Primary Acute laryngitis, without mention of obstruction Morbid obesity with BMI of 40.0-44.9, adult ([facility]) COVID-19 virus detected Insomnia, unspecified type- Primary Anxiety and depression ([facility]/HCC) Morbid obesity with BMI of 40.0-44.9, adult ([facility]) Mood disorder ([facility]/HCC)- Primary Unspecified episodic mood disorder Obesity, morbid, BMI 40.0-49.9 ([facility]/HCC) Frequent nosebleeds Other chest pain- Primary Morbid obesity with BMI of 40.0-44.9, adult ([facility]) Anxiety and depression ([facility]/HCC) Mood disorder ([facility]/HCC)- Primary Unspecified episodic mood disorder Other chest pain Obesity, morbid, BMI 40.0-49.9 ([facility]/HCC) Polycystic ovary syndrome Polycystic ovaries Rash and nonspecific skin eruption- Primary Rash and other nonspecific skin eruption Obesity, morbid, BMI 40.0-49.9 (CMS/[facility]) Mood disorder ([facility]) Unspecified episodic mood disorder Paresthesia of foot, bilateral Anxiety and depression ([facility])- Primary Hyperinsulinemia Obesity, morbid, BMI 40.0-49.9 ([facility]) Mood disorder ([facility]) Unspecified episodic mood disorder Obesity, morbid, BMI 40.0-49.9 ([facility])- Primary Strain of thoracic back region 19 weeks gestation of Second trimester state, incidental Weight loss, abnormal Nonintractable headache, unspecified chronicity pattern, unspecified headache type Leukocytes in urine Other nonspecific finding on examination of urine Vaginal discharge Leukorrhea, not specified as infective documented in this encounter [facility]* Diagnosis Laryngitis- Primary Acute laryngitis, without mention of obstruction Morbid obesity with BMI of 40.0-44.9, adult ([facility]) COVID-19 virus detected Insomnia, unspecified type- Primary Anxiety and depression ([facility]) Morbid obesity with BMI of 40.0-44.9, [place] [place] disorder [place])- Primary Unspecified episodic mood disorder Obesity, morbid, BMI 40.0-49.9 ([facility]) Frequent nosebleeds Other chest pain- Primary Morbid obesity with BMI of 40.0-44.9, adult ([facility]) Anxiety and depression ([facility] Mood disorder ([facility])- Primary Unspecified episodic mood disorder Other chest pain Obesity, morbid, BMI 40.0-49.9 ([facility]) Polycystic ovary syndrome Polycystic ovaries Rash and nonspecific skin eruption- Primary Rash and other nonspecific skin eruption Obesity, morbid, BMI 40.0-49.9 ([facility]) Mood disorder ([facility]) Unspecified episodic mood disorder Paresthesia of foot, bilateral Anxiety and depression ([facility])- Primary Hyperinsulinemia Obesity, morbid, BMI 40.0-49.9 ([facility]) Mood disorder ([facility]) Unspecified episodic mood disorder Obesity, morbid, BMI 40.0-49.9 ([facility])- Primary Strain of thoracic back region Hemorrhoids, unspecified hemorrhoid type- Primary 20 weeks gestation of Second trimester state, incidental Weight loss, abnormal Nonintractable headache, unspecified chronicity pattern, unspecified headache type documented in this encounter [facility]* Diagnosis Laryngitis- Primary Acute laryngitis, without mention of obstruction Morbid obesity with BMI of 40.0-44.9, adult ([facility]) COVID-19 virus detected Insomnia, unspecified type- Primary Anxiety and depression ([facility]/HCC) Morbid obesity with BMI of 40.0-44.9, adult ([facility]) Mood disorder ([facility]/HCC)- Primary Unspecified episodic mood disorder Obesity, morbid, BMI 40.0-49.9 ([facility]) Frequent nosebleeds Other chest pain- Primary Morbid obesity with BMI of 40.0-44.9, adult ([facility]) Anxiety and depression (CMS/HCC) Mood disorder ([facility]/HCC)- Primary Unspecified episodic mood disorder Other chest pain Obesity, morbid, BMI 40.0-49.9 ([facility]) Polycystic ovary syndrome Polycystic ovaries Rash and nonspecific skin eruption- Primary Rash and other nonspecific skin eruption Obesity, morbid, BMI 40.0-49.9 ([facility]) Mood disorder ([facility]/HCC) Unspecified episodic mood disorder Paresthesia of foot, bilateral Anxiety and depression ([facility])- Primary Hyperinsulinemia Obesity, morbid, BMI 40.0-49.9 ([facility]/HCC) Mood disorder ([facility]) Unspecified episodic mood disorder Obesity, morbid, BMI 40.0-49.9 ([facility]/HCC)- Primary Strain of thoracic back region Poor weight gain of , second trimester- Primary 20 weeks gestation of Second trimester state, incidental Weight loss, abnormal Nonintractable headache, unspecified chronicity pattern, unspecified headache type Hemorrhoids, unspecified hemorrhoid type documented in this encounter [facility]* Diagnosis Laryngitis- Primary Acute laryngitis, without mention of obstruction Morbid obesity with BMI of 40.0-44.9, adult ([facility]) COVID-19 virus detected Insomnia, unspecified type- Primary Anxiety and depression ([facility]/HCC) Morbid obesity with BMI of 40.0-44.9, adult ([facility]) Mood disorder ([facility]/HCC)- Primary Unspecified episodic mood disorder Obesity, morbid, BMI 40.0-49.9 ([facility]) Frequent nosebleeds Other chest pain- Primary Morbid obesity with BMI of 40.0-44.9, adult ([facility]) Anxiety and depression ([facility]) Mood disorder ([facility]/HCC)- Primary Unspecified episodic mood disorder Other chest pain Obesity, morbid, BMI 40.0-49.9 ([facility]/HCC) Polycystic ovary syndrome Polycystic ovaries Rash and nonspecific skin eruption- Primary Rash and other nonspecific skin eruption Obesity, morbid, BMI 40.0-49.9 ([facility]) Mood disorder ([facility]) Unspecified episodic mood disorder Paresthesia of foot, bilateral Anxiety and depression ([facility])- Primary Hyperinsulinemia Obesity, morbid, BMI 40.0-49.9 ([facility]) Mood disorder ([facility]) Unspecified episodic mood disorder Obesity, morbid, BMI 40.0-49.9 ([facility])- Primary Strain of thoracic back region Acute vaginitis- Primary Unspecified vaginitis and vulvovaginitis documented in this encounter [facility]* Diagnosis Laryngitis- Primary Acute laryngitis, without mention of obstruction Morbid obesity with BMI of 40.0-44.9, adult ([facility]) COVID-19 virus detected Insomnia, unspecified type- Primary Anxiety and depression ([facility]) Morbid obesity with BMI of 40.0-44.9, adult ([facility]) Mood disorder ([facility])- Primary Unspecified episodic mood disorder Obesity, morbid, BMI 40.0-49.9 ([facility]) Frequent nosebleeds Other chest pain- Primary Morbid obesity with BMI of 40.0-44.9, adult ([facility]) Anxiety and depression ([facility] Mood disorder ([facility])- Primary Unspecified episodic mood disorder Other chest pain Obesity, morbid, BMI 40.0-49.9 ([facility]) Polycystic ovary syndrome Polycystic ovaries Rash and nonspecific skin eruption- Primary Rash and other nonspecific skin eruption Obesity, morbid, BMI 40.0-49.9 ([facility]/HCC) Mood disorder ([facility]/HCC) Unspecified episodic mood disorder Paresthesia of foot, bilateral Anxiety and depression ([facility])- Primary Hyperinsulinemia Obesity, morbid, BMI 40.0-49.9 ([facility]) Mood disorder ([facility]/HCC) Unspecified episodic mood disorder Obesity, morbid, BMI 40.0-49.9 ([facility])- Primary Strain of thoracic back region Polyhydramnios in second trimester, single or unspecified fetus- Primary Second trimester state, incidental Nonintractable headache, unspecified chronicity pattern, unspecified headache type Hemorrhoids, unspecified hemorrhoid type Poor weight gain of , second trimester Weight loss, abnormal 24 weeks gestation of documented in this encounter [facility]* Diagnosis Suspected anomaly not found- Primary Encounter for anatomic survey ([facility]) Encounter for anatomic survey 25 weeks gestation of ([facility]) state, incidental documented in this encounter [facility]* Diagnosis Suspected anomaly not found- Primary 25 weeks gestation of ([facility]) state, incidental documented in this encounter [facility] note* Diagnosis Laryngitis- Primary Acute laryngitis, without mention of obstruction Morbid obesity with BMI of 40.0-44.9, adult ([facility]) COVID-19 virus detected Insomnia, unspecified type- Primary Anxiety and depression ([facility]) Morbid obesity with BMI of 40.0-44.9, [place] Mood disorder ([facility])- Primary Unspecified episodic mood disorder Obesity, morbid, BMI 40.0-49.9 ([facility]) Frequent nosebleeds Other chest pain- Primary Morbid obesity with BMI of 40.0-44.9, adult ([facility]) Anxiety and depression ([facility] Mood disorder ([facility])- Primary Unspecified episodic mood disorder Other chest pain Obesity, morbid, BMI 40.0-49.9 ([facility]) Polycystic ovary syndrome Polycystic ovaries Rash and nonspecific skin eruption- Primary Rash and other nonspecific skin eruption Obesity, morbid, BMI 40.0-49.9 ([facility]) Mood disorder ([facility]) Unspecified episodic mood disorder Paresthesia of foot, bilateral Anxiety and depression ([facility])- Primary Hyperinsulinemia Obesity, morbid, BMI 40.0-49.9 ([facility]) Mood disorder ([facility]) Unspecified episodic mood disorder Obesity, morbid, BMI 40.0-49.9 ([facility])- Primary Strain of thoracic back region Third trimester state, incidental 29 weeks gestation of Nonintractable headache, unspecified chronicity pattern, unspecified headache type Hemorrhoids, unspecified hemorrhoid type Poor weight gain of , second trimester Weight loss, abnormal Polyhydramnios affecting in third trimester documented in this encounter [facility]* Diagnosis Laryngitis- Primary Acute laryngitis, without mention of obstruction Morbid obesity with BMI of 40.0-44.9, adult ([facility]) COVID-19 virus detected Insomnia, unspecified type- Primary Anxiety and depression (CMS/HCC) Morbid obesity with BMI of 40.0-44.9, adult ([facility]) Mood disorder (CMS/HCC)- Primary Unspecified episodic mood disorder Obesity, morbid, BMI 40.0-49.9 (CMS/HCC) Frequent nosebleeds Other chest pain- Primary Morbid obesity with BMI of 40.0-44.9, adult ([facility]) Anxiety and depression (CMS/HCC) Mood disorder (CMS/HCC)- Primary Unspecified episodic mood disorder Other chest pain Obesity, morbid, BMI 40.0-49.9 (CMS/HCC) Polycystic ovary syndrome Polycystic ovaries Rash and nonspecific skin eruption- Primary Rash and other nonspecific skin eruption Obesity, morbid, BMI 40.0-49.9 (CMS/HCC) Mood disorder (CMS/HCC) Unspecified episodic mood disorder Paresthesia of foot, bilateral Anxiety and depression (CMS/HCC)- Primary Hyperinsulinemia Obesity, morbid, BMI 40.0-49.9 ([facility]/HCC) Mood disorder (CMS/HCC) Unspecified episodic mood disorder Obesity, morbid, BMI 40.0-49.9 (CMS/HCC)- Primary Strain of thoracic back region Urinary tract infection without hematuria, site unspecified- Primary documented in this encounter [facility]* Diagnosis Laryngitis- Primary Acute laryngitis, without mention of obstruction Morbid obesity with BMI of 40.0-44.9, adult ([facility]) COVID-19 virus detected Insomnia, unspecified type- Primary Anxiety and depression ([facility]/HCC) Morbid obesity with BMI of 40.0-44.9, adult ([facility]) Mood disorder ([facility]/HCC)- Primary Unspecified episodic mood disorder Obesity, morbid, BMI 40.0-49.9 (CMS/HCC) Frequent nosebleeds Other chest pain- Primary Morbid obesity with BMI of 40.0-44.9, adult ([facility]) Anxiety and depression (CMS/HCC) Mood disorder (CMS/HCC)- Primary Unspecified episodic mood disorder Other chest pain Obesity, morbid, BMI 40.0-49.9 (CMS/HCC) Polycystic ovary syndrome Polycystic ovaries Rash and nonspecific skin eruption- Primary Rash and other nonspecific skin eruption Obesity, morbid, BMI 40.0-49.9 ([facility]/HCC) Mood disorder (CMS/HCC) Unspecified episodic mood disorder Paresthesia of foot, bilateral Anxiety and depression ([facility]/HCC)- Primary Hyperinsulinemia Obesity, morbid, BMI 40.0-49.9 ([facility]) Mood disorder ([facility]) Unspecified episodic mood disorder Obesity, morbid, BMI 40.0-49.9 ([facility])- Primary Strain of thoracic back region Third trimester state, incidental 32 weeks gestation of Nonintractable headache, unspecified chronicity pattern, unspecified headache type Hemorrhoids, unspecified hemorrhoid type Poor weight gain of , second trimester Weight loss, abnormal Polyhydramnios affecting in third trimester documented in this encounter [facility]* Diagnosis Laryngitis- Primary Acute laryngitis, without mention of obstruction Morbid obesity with BMI of 40.0-44.9, adult ([facility]) COVID-19 virus detected Insomnia, unspecified type- Primary Anxiety and depression ([facility]) Morbid obesity with BMI of 40.0-44.9, adult ([facility]) Mood disorder ([facility])- Primary Unspecified episodic mood disorder Obesity, morbid, BMI 40.0-49.9 ([facility]) Frequent nosebleeds Other chest pain- Primary Morbid obesity with BMI of 40.0-44.9, adult ([facility]) Anxiety and depression ([facility] Mood disorder ([facility])- Primary Unspecified episodic mood disorder Other chest pain Obesity, morbid, BMI 40.0-49.9 ([facility]) Polycystic ovary syndrome Polycystic ovaries Rash and nonspecific skin eruption- Primary Rash and other nonspecific skin eruption Obesity, morbid, BMI 40.0-49.9 ([facility]) Mood disorder ([facility]) Unspecified episodic mood disorder Paresthesia of foot, bilateral Anxiety and depression ([facility])- Primary Hyperinsulinemia Obesity, morbid, BMI 40.0-49.9 ([facility]/HCC) Mood disorder ([facility]/HCC) Unspecified episodic mood disorder Obesity, morbid, BMI 40.0-49.9 ([facility])- Primary Strain of thoracic back region Acute vaginitis- Primary Unspecified vaginitis and vulvovaginitis Third trimester state, incidental 33 weeks gestation of Nonintractable headache, unspecified chronicity pattern, unspecified headache type Poor weight gain of , second trimester Hemorrhoids, unspecified hemorrhoid type Weight loss, abnormal Polyhydramnios affecting in third trimester Urinary tract infection without hematuria, site unspecified documented in this encounter [facility]* Diagnosis Laryngitis- Primary Acute laryngitis, without mention of obstruction Morbid obesity with BMI of 40.0-44.9, [place] [place] COVID-19 virus detected Insomnia, unspecified type- Primary Anxiety and depression Morbid obesity with BMI of 40.0-44.9, adult [place] Mood disorder- Primary Unspecified episodic mood disorder Obesity, morbid, BMI 40.0-49.9 [place] Frequent nosebleeds Other chest pain- Primary Morbid obesity with BMI of 40.0-44.9, adult [place] Anxiety and depression Mood disorder- Primary Unspecified episodic mood disorder Other chest pain Obesity, morbid, BMI 40.0-49.9 [place] Polycystic ovary syndrome Polycystic ovaries Rash and nonspecific skin eruption- Primary Rash and other nonspecific skin eruption Obesity, morbid, BMI 40.0-49.9 [place] Mood disorder Unspecified episodic mood disorder Paresthesia of foot, bilateral Anxiety and depression- Primary Hyperinsulinemia Obesity, morbid, BMI 40.0-49.9 [place] Mood disorder Unspecified episodic mood disorder Obesity, morbid, BMI 40.0-49.9 ([facility] Primary Strain of thoracic back region Third trimester ([facility]) state, incidental 33 weeks gestation of ([facility]) Nonintractable headache, unspecified chronicity pattern, unspecified headache type Poor weight gain of , second trimester ([facility]) Hemorrhoids, unspecified hemorrhoid type Weight loss, abnormal Polyhydramnios affecting in third trimester ([facility]) Urinary tract infection without hematuria, site unspecified screening for streptococcus B ([facility]) screening for Streptococcus B Third trimester ([facility]) state, incidental 34 weeks gestation of ([facility]) Nonintractable headache, unspecified chronicity pattern, unspecified headache type Poor weight gain of , second trimester ([facility]) Hemorrhoids, unspecified hemorrhoid type Weight loss, abnormal Polyhydramnios affecting in third trimester ([facility]) documented in this encounter [facility]* Diagnosis Laryngitis- Primary Acute laryngitis, without mention of obstruction Morbid obesity with BMI of 40.0-44.9, adult ([facility] COVID-19 virus detected Insomnia, unspecified type- Primary Anxiety and depression Morbid obesity with BMI of 40.0-44.9, adult ([facility] Mood disorder- Primary Unspecified episodic mood disorder Obesity, morbid, BMI 40.0-49.9 ([facility] Frequent nosebleeds Other chest pain- Primary Morbid obesity with BMI of 40.0-44.9, adult ([facility] Anxiety and depression Mood disorder- Primary Unspecified episodic mood disorder Other chest pain Obesity, morbid, BMI 40.0-49.9 ([facility] Polycystic ovary syndrome Polycystic ovaries Rash and nonspecific skin eruption- Primary Rash and other nonspecific skin eruption Obesity, morbid, BMI 40.0-49.9 ([facility] Mood disorder Unspecified episodic mood disorder Paresthesia of foot, bilateral Anxiety and depression- Primary Hyperinsulinemia Obesity, morbid, BMI 40.0-49.9 ([facility] Mood disorder Unspecified episodic mood disorder Obesity, morbid, BMI 40.0-49.9 ([facility] Primary Strain of thoracic back region Polyhydramnios affecting in third trimester ([facility]) 34 weeks gestation of ([facility]) documented in this encounter [facility]* Diagnosis Laryngitis- Primary Acute laryngitis, without mention of obstruction Morbid obesity with BMI of 40.0-44.9, adult ([facility] COVID-19 virus detected Insomnia, unspecified type- Primary Anxiety and depression Morbid obesity with BMI of 40.0-44.9, adult ([facility] Mood disorder- Primary Unspecified episodic mood disorder Obesity, morbid, BMI 40.0-49.9 ([facility] Frequent nosebleeds Other chest pain- Primary Morbid obesity with BMI of 40.0-44.9, adult ([facility] Anxiety and depression Mood disorder- Primary Unspecified episodic mood disorder Other chest pain Obesity, morbid, BMI 40.0-49.9 ([facility] Polycystic ovary syndrome Polycystic ovaries Rash and nonspecific skin eruption- Primary Rash and other nonspecific skin eruption Obesity, morbid, BMI 40.0-49.9 ([facility] Mood disorder Unspecified episodic mood disorder Paresthesia of foot, bilateral Anxiety and depression- Primary Hyperinsulinemia Obesity, morbid, BMI 40.0-49.9 ([facility] Mood disorder Unspecified episodic mood disorder Obesity, morbid, BMI 40.0-49.9 ([facility] Primary Strain of thoracic back region screening for streptococcus B ([facility]) screening for Streptococcus B Third trimester ([facility]) state, incidental 34 weeks gestation of ([facility]) Hemorrhoids, unspecified hemorrhoid type Weight loss, abnormal Polyhydramnios affecting in third trimester ([facility]) documented in this encounter [facility]* Diagnosis Laryngitis- Primary Acute laryngitis, without mention of obstruction Morbid obesity with BMI of 40.0-44.9, adult ([facility] COVID-19 virus detected Insomnia, unspecified type- Primary Anxiety and depression Morbid obesity with BMI of 40.0-44.9, adult ([facility] Mood disorder- Primary Unspecified episodic mood disorder Obesity, morbid, BMI 40.0-49.9 ([facility] Frequent nosebleeds Other chest pain- Primary Morbid obesity with BMI of 40.0-44.9, adult ([facility] Anxiety and depression Mood disorder- Primary Unspecified episodic mood disorder Other chest pain Obesity, morbid, BMI 40.0-49.9 ([facility] Polycystic ovary syndrome Polycystic ovaries Rash and nonspecific skin eruption- Primary Rash and other nonspecific skin eruption Obesity, morbid, BMI 40.0-49.9 ([facility] Mood disorder Unspecified episodic mood disorder Paresthesia of foot, bilateral Anxiety and depression- Primary Hyperinsulinemia Obesity, morbid, BMI 40.0-49.9 ([facility] Mood disorder Unspecified episodic mood disorder Obesity, morbid, BMI 40.0-49.9 ([facility] Primary Strain of thoracic back region Polyhydramnios affecting in third trimester ([facility]) 35 weeks gestation of ([facility]) documented in this encounter [facility]* Diagnosis Laryngitis- Primary Acute laryngitis, without mention of obstruction Morbid obesity with BMI of 40.0-44.9, adult ([facility] COVID-19 virus detected Insomnia, unspecified type- Primary Anxiety and depression Morbid obesity with BMI of 40.0-44.9, adult ([facility] Mood disorder- Primary Unspecified episodic mood disorder Obesity, morbid, BMI 40.0-49.9 ([facility] Frequent nosebleeds Other chest pain- Primary Morbid obesity with BMI of 40.0-44.9, adult ([facility] Anxiety and depression Mood disorder- Primary Unspecified episodic mood disorder Other chest pain Obesity, morbid, BMI 40.0-49.9 ([facility] Polycystic ovary syndrome Polycystic ovaries Rash and nonspecific skin eruption- Primary Rash and other nonspecific skin eruption Obesity, morbid, BMI 40.0-49.9 ([facility] Mood disorder Unspecified episodic mood disorder Paresthesia of foot, bilateral Anxiety and depression- Primary Hyperinsulinemia Obesity, morbid, BMI 40.0-49.9 ([facility] Mood disorder Unspecified episodic mood disorder Obesity, morbid, BMI 40.0-49.9 ([facility] Primary Strain of thoracic back region 36 weeks gestation of ([facility]) Polyhydramnios affecting in third trimester ([facility]) documented in this encounter [facility]* Diagnosis Laryngitis- Primary Acute laryngitis, without mention of obstruction Morbid obesity with BMI of 40.0-44.9, adult ([facility] COVID-19 virus detected Insomnia, unspecified type- Primary Anxiety and depression Morbid obesity with BMI of 40.0-44.9, adult ([facility] Mood disorder- Primary Unspecified episodic mood disorder Obesity, morbid, BMI 40.0-49.9 ([facility] Frequent nosebleeds Other chest pain- Primary Morbid obesity with BMI of 40.0-44.9, adult ([facility] Anxiety and depression Mood disorder- Primary Unspecified episodic mood disorder Other chest pain Obesity, morbid, BMI 40.0-49.9 ([facility] Polycystic ovary syndrome Polycystic ovaries Rash and nonspecific skin eruption- Primary Rash and other nonspecific skin eruption Obesity, morbid, BMI 40.0-49.9 ([facility] Mood disorder Unspecified episodic mood disorder Paresthesia of foot, bilateral Anxiety and depression- Primary Hyperinsulinemia Obesity, morbid, BMI 40.0-49.9 ([facility] Mood disorder Unspecified episodic mood disorder Obesity, morbid, BMI 40.0-49.9 ([facility] Primary Strain of thoracic back region Third trimester ([facility]) state, incidental 36 weeks gestation of ([facility]) Hemorrhoids, unspecified hemorrhoid type Weight loss, abnormal Polyhydramnios affecting in third trimester ([facility]) Uterine contractions ([facility]) Urinary tract infection without hematuria, site unspecified [facility] in [facility] encounter [facility]* Diagnosis Laryngitis- Primary Acute laryngitis, without mention of obstruction Morbid obesity with BMI of 40.0-44.9, adult ([facility] COVID-19 virus detected Insomnia, unspecified type- Primary Anxiety and depression Morbid obesity with BMI of 40.0-44.9, adult ([facility] Mood disorder- Primary Unspecified episodic mood disorder Obesity, morbid, BMI 40.0-49.9 ([facility] Frequent nosebleeds Other chest pain- Primary Morbid obesity with BMI of 40.0-44.9, adult ([facility] Anxiety and depression Mood disorder- Primary Unspecified episodic mood disorder Other chest pain Obesity, morbid, BMI 40.0-49.9 ([facility] Polycystic ovary syndrome Polycystic ovaries Rash and nonspecific skin eruption- Primary Rash and other nonspecific skin eruption Obesity, morbid, BMI 40.0-49.9 ([facility] Mood disorder Unspecified episodic mood disorder Paresthesia of foot, bilateral Anxiety and depression- Primary Hyperinsulinemia Obesity, morbid, BMI 40.0-49.9 ([facility] Mood disorder Unspecified episodic mood disorder Obesity, morbid, BMI 40.0-49.9 ([facility] Primary Strain of thoracic back region Uterine contractions ([facility])- Primary Third trimester ([facility]) state, incidental 35 weeks gestation of ([facility]) Hemorrhoids, unspecified hemorrhoid type Weight loss, abnormal Polyhydramnios affecting in third trimester ([facility]) Urinary tract infection without hematuria, site unspecified documented in this encounter [facility]* Type Assessment Date No Information [facility] Work Phone: Evaluation note* Diagnosis Laryngitis- Primary Acute laryngitis, without mention of obstruction Morbid obesity with BMI of 40.0-44.9, adult [place] COVID-19 virus detected Insomnia, unspecified type- Primary Anxiety and depression Morbid obesity with BMI of 40.0-44.9, adult ([facility] Mood disorder- Primary Unspecified episodic mood disorder Obesity, morbid, BMI 40.0-49.9 ([facility] Frequent nosebleeds Other chest pain- Primary Morbid obesity with BMI of 40.0-44.9, adult ([facility] Anxiety and depression Mood disorder- Primary Unspecified episodic mood disorder Other chest pain Obesity, morbid, BMI 40.0-49.9 ([facility] Polycystic ovary syndrome Polycystic ovaries Rash and nonspecific skin eruption- Primary Rash and other nonspecific skin eruption Obesity, morbid, BMI 40.0-49.9 ([facility] Mood disorder Unspecified episodic mood disorder Paresthesia of foot, bilateral Anxiety and depression- Primary Hyperinsulinemia Obesity, morbid, BMI 40.0-49.9 ([facility] Mood disorder Unspecified episodic mood disorder Obesity, morbid, BMI 40.0-49.9 ([facility] Primary Strain of thoracic back region Iron deficiency anemia, unspecified iron deficiency anemia type- Primary documented in this encounter [facility]* Diagnosis Laryngitis- Primary Acute laryngitis, without mention of obstruction Morbid obesity with BMI of 40.0-44.9, adult ([facility] COVID-19 virus detected Insomnia, unspecified type- Primary Anxiety and depression Morbid obesity with BMI of 40.0-44.9, adult ([facility] Mood disorder- Primary Unspecified episodic mood disorder Obesity, morbid, BMI 40.0-49.9 ([facility] Frequent nosebleeds Other chest pain- Primary Morbid obesity with BMI of 40.0-44.9, adult ([facility] Anxiety and depression Mood disorder- Primary Unspecified episodic mood disorder Other chest pain Obesity, morbid, BMI 40.0-49.9 ([facility] Polycystic ovary syndrome Polycystic ovaries Rash and nonspecific skin eruption- Primary Rash and other nonspecific skin eruption Obesity, morbid, BMI 40.0-49.9 ([facility] Mood disorder Unspecified episodic mood disorder Paresthesia of foot, bilateral Anxiety and depression- Primary Hyperinsulinemia Obesity, morbid, BMI 40.0-49.9 ([facility] Mood disorder Unspecified episodic mood disorder Obesity, morbid, BMI 40.0-49.9 ([facility] Primary Strain of thoracic back region Mild episode of recurrent major depressive disorder- Primary Obesity, morbid, BMI 40.0-49.9 ([facility] care following vaginal delivery ([facility]) documented in this encounter [facility]* Diagnosis Laryngitis- Primary Acute laryngitis, without mention of obstruction Morbid obesity with BMI of 40.0-44.9, adult ([facility] COVID-19 virus detected Insomnia, unspecified type- Primary Anxiety and depression Morbid obesity with BMI of 40.0-44.9, adult ([facility] Mood disorder- Primary Unspecified episodic mood disorder Obesity, morbid, BMI 40.0-49.9 ([facility] Frequent nosebleeds Other chest pain- Primary Morbid obesity with BMI of 40.0-44.9, adult ([facility] Anxiety and depression Mood disorder- Primary Unspecified episodic mood disorder Other chest pain Obesity, morbid, BMI 40.0-49.9 ([facility] Polycystic ovary syndrome Polycystic ovaries Rash and nonspecific skin eruption- Primary Rash and other nonspecific skin eruption Obesity, morbid, BMI 40.0-49.9 ([facility] Mood disorder Unspecified episodic mood disorder Paresthesia of foot, bilateral Anxiety and depression- Primary Hyperinsulinemia Obesity, morbid, BMI 40.0-49.9 ([facility] Mood disorder Unspecified episodic mood disorder Obesity, morbid, BMI 40.0-49.9 ([facility] Primary Strain of thoracic back region Mild episode of recurrent major depressive disorder- Primary Obesity, morbid, BMI 40.0-49.9 ([facility] care following vaginal delivery ([facility]) documented in this encounter [facility]* Diagnosis Polycystic ovarian syndrome Polycystic ovaries [facility] Diagnosis Laryngitis- Primary Acute laryngitis, without mention of obstruction Morbid obesity with BMI of 40.0-44.9, adult ([facility] COVID-19 virus detected Insomnia, unspecified type- Primary Anxiety and depression Morbid obesity with BMI of 40.0-44.9, adult ([facility] Mood disorder- Primary Unspecified episodic mood disorder Obesity, morbid, BMI 40.0-49.9 ([facility] Frequent nosebleeds Other chest pain- Primary Morbid obesity with BMI of 40.0-44.9, adult ([facility] Anxiety and depression Mood disorder- Primary Unspecified episodic mood disorder Other chest pain Obesity, morbid, BMI 40.0-49.9 ([facility] Polycystic ovary syndrome Polycystic ovaries Rash and nonspecific skin eruption- Primary Rash and other nonspecific skin eruption Obesity, morbid, BMI 40.0-49.9 ([facility] Mood disorder Unspecified episodic mood disorder Paresthesia of foot, bilateral Anxiety and depression- Primary Hyperinsulinemia Obesity, morbid, BMI 40.0-49.9 ([facility] Mood disorder Unspecified episodic mood disorder Obesity, morbid, BMI 40.0-49.9 ([facility] Primary Strain of thoracic back region Mild episode of recurrent major depressive disorder- Primary Obesity, morbid, BMI 40.0-49.9 ([facility]) Ingrown toenail- Primary Ingrowing nail Left foot pain Pain in soft tissues of limb documented in [facility] encounter [facility]* Clinical Note Date No Information [facility] Work Phone: History general Narrative - Reported* Type Description Date Medical History PCOS (polycystic ovarian syndrom e) Surgical Historywisdom teeth [id number] [place] Other History of Past illness Narrative* Condition Effective Dates (start - stop) O utcome No Information [facility] Work Phone: History of Present illness Narrative* Encounter Date Complaint History Of Prese nt Illness No Information [facility] Work Phone: Hospital Discharge instructions Additional Instructions Daily Kick Counts Perform kick count during baby's most common active time of the day. Lay on your back slightly tilted to one side. Place both hands on sides of abdomen. Turn down lights and distractions. Count movements for 1 hour. If you do not have 10 movements in 1 hour, try a cold or sugary drink or a warm bath. Be sure to have eaten before counting. If you do not have 10 movements in the second hour, call physician's office or come to Labor and Delivery to be evaluated. [facility] Work Phone: InstructionsNot on filedocumented in this encounter [facility]* Date Instruction Additional Infor mation No Information [facility] Work Phone: Progress note Author Tevin Gregg [facility] HospitalNote Date/TimeJuly 2024 11:[address] [address] GENETICS NURSE Progress Note Signed Patient: Shaneka Nugent MR#: [id number] : 2000 Acct:[id number] Age/Sex: 24 / F Adm Date: 5 Loc: 3S Room: [address] [place] [address] Type: ADM IN Attending Dr: Brock Trejo MD Copies to: ~ Date of Service: 01/03/2025 OB - PN: Subj Subjective Post Delivery Day #: Day 2 Patient comments: no complaints [place] baby status: doing well feeding status: pumping and bottle feeding OB - PN: Obj Exam Physical Exam Vital signs: Vital Signs - 8 hr 01/03/25 09:07 Temperature 98.0 F Pulse Rate 83 Respiratory Rate 18 Blood Pressure 124/75 02 Sat by Pulse Oximetry 99 Oxygen Delivery Method Room Air Constitutional Constitutional: no acute distress and cooperative HEENT Exam Head: Present normocephalic and atraumatic ENT: Present mucous membranes moist Respiratory Exam Respiratory: Present CTA bilaterally; Absent accessory muscle use Cardiovascular Exam Cardiovascular: Present RRR, S1 and S2; Absent murmur Abdominal Exam Abdominal: Present soft; Absent distended or guarding Fundus: Present firm (U=0) Extremities Exam Extremities: Present edema (2+ lower extremity pitting edema bilaterally); Absent cyanosis, palpable cord or Obdulia's sign Skin Exam Skin: Present intact, dry and warm; Absent rash Neurological Exam Neurological: Present alert, oriented X3 and normal speech Psychiatric Exam Psychiatric: Present normal affect Urinary Catheter Management Urethral ([place]): Cath placed during this visit: no OB - PN: Obj Data Labs 01/01/25 07:07 Labs: 12/31/24 11:20: RPR w/Rflx to Titer Non reactive, Syphilis Interpret Comment Assessment/Plan Assessment (1) Status post vaginal delivery: Plan: See discharge instruction sheet (2) anemia: Plan: Rx ferrous sulfate 3 and 25 mg once daily along with her vitamin Plan day: 2 Vaginal delivery plan (if applicable): routine care, discharge home and follow up 6 weeks Documented By: Tevin Gregg DO 01/03/25 1152 Signed By: <Electronically signed by Tevin Gregg DO> 01/03/25 1154 [facility] Work Phone: Progress note* Clinical Note Date No Information [facility] Work Phone: Reason for referral (narrative)* Reason For Referral No Information [facility] Work Phone: Reason for referral (narrative)No reason for referral information [facility] Work Phone: Review of systems Narrative - Reported* System Pos/Neg Findings No Information [facility] Work Phone: Summary Purpose Family History Relationship Condition Age at Onset Recorded Date/T orion Not Specified No pertinent family history Unknown Relationship Condition Age at Onset Recorded Date/T orion Not Specified No pertinent family history Unknown fatherAcute Crohn's diseaseUnknown Family Member Type Diagnosis Age At Onset Mother Problem Alive and well FatherProblemAlive and well Advance Directives Advance Directive Response Recorded Date/ Time Advance Directives No December 03 11:02pm Directive Yes / No Effective Date File Name No Information Chief Complaint and Reason for Visit From encounter dated 04/27/2025 12:36'. dl (chief complaint). Description: dl Chief Complaint tingling Chief Complaint Admit Date 18 wks iup- leaking fluid August 28, 2024 11:17pm unable to gain weight September 132024 12:47pm Chief Complaint Admit Date 18 wks iup- leaking fluid August 28, 2024 11:17pm unable to gain weight September 132024 12:47pm 23 wks iup abd pain September 28, 2024 9:2 4pm Chief Complaint Admit Date 18 wks iup- leaking fluid August 28, 2024 11:17pm unable to gain weight September 132024 12:47pm 23 wks iup abd pain September 28, 2024 9:2 4pm IUP (Intrauterine ) October 15, 2024 1:54pm Chief Complaint Admit Date IUP (Intrauterine ) October 15, 2024 1:54pm 31 weeks iup, thinks water broke November 12:27am IUP (Intrauterine ) December 15, 2024 2:01pm Z36.85 December 19, 2024 11:0 9am NST December 19, 2024 1:11 pm 35 wk iup/contractions December 22, 2024 7 :37pm NST - 36 weeks December 27, 2024 12:1 1pm Contractions, think water broke December 10:17am Reason for Visit Admit Date anemia December 31, 2024 10:1 7am Status post vaginal delivery December 31, 2024 10:17am Chief Complaint Admit Date IUP (Intrauterine ) October 15, 2024 1:54pm 31 weeks iup, thinks water broke November 12:27am IUP (Intrauterine ) December 15, 2024 2:01pm Z36.85 December 19, 2024 11:0 9am NST December 19, 2024 1:11 pm 35 wk iup/contractions December 22, 2024 7 :37pm NST - 36 weeks December 27, 2024 12:1 1pm Contractions, think water broke December 10:17am Visit January 06, 2025 10:30 am Visit January 07, 2025 10:00 am Chief Complaint Admit Date 31 weeks iup, thinks water broke November 12:27am IUP (Intrauterine ) December 15, 2024 2:01pm Z36.85 December 19, 2024 11:0 9am NST December 19, 2024 1:11 pm 35 wk iup/contractions December 22, 2024 7 :37pm NST - 36 weeks December 27, 2024 12:1 1pm Contractions, think water broke December 10:17am Visit January 06, 2025 10:30 am Visit January 07, 2025 10:00 am Rash on neck February 03, 2025 10: 34am Chief Complaint Admit Date 35 wk iup/contractions December 22, 2024 7 :37pm NST - 36 weeks December 27, 2024 12:1 1pm Contractions, think water broke December 10:17am Visit January 06, 2025 10:30 am Visit January 07, 2025 10:00 am Rash on neck February 03, 2025 10: 34am Established Patient March 22, 2025 5:58pm Reason for Visit Admit Date anemia December 31, 2024 10:1 7am Status post vaginal delivery December 31, 2024 10:17am Contact dermatitis February 03, 2025 10: 34am Major depression, recurrent March 222024 5:58pm Obesity, morbid, BMI 40.0-49.9 March 22, 2025 5:58pm Chief Complaint Admit Date Rash on neck February 03, 2025 10: 34am Established Patient March 22, 2025 5:58pm lower back pain April 18, 2025 4 :05pm Reason for Visit Admit Date Contact dermatitis February 03, 2025 10: 34am ANGEL (generalized anxiety disorder) Patience doe 2024 5:58pm Major depression, recurrent March 222024 5:58pm Obesity, morbid, BMI 40.0-49.9 March 22, 2025 5:58pm Chief Complaint Admit Date Rash on neck February 03, 2025 10: 34am Established Patient March 22, 2025 5:58pm lower back pain April 18, 2025 4 :05pm Meds not agreeing with her April 20, 2025 3:20pm Reason for Visit Admit Date Contact dermatitis February 03, 2025 10: 34am ANGEL (generalized anxiety disorder) Patience [facility] 2024 5:58pm Major depression, recurrent March 222024 5:58pm Obesity, morbid, BMI 40.0-49.9 March 22, 2025 5:58pm Strain of lumbar region April 18 4:05pm Anxiety and depression April 20 3:20pm Obesity, morbid, BMI 40.0-49.9 April 052024 3:20pm Reason for Referral SpecialtyDiagnoses / ProceduresReferred By ContactReferred To Contact Diagnoses Disturbance in sleep behavior Procedures CONSULT TO SLEEP MEDICINE - ADULT OFFICE/OUTPATIENT [facility] 60 MINUTES Beth Allison, CAN OPERATOR.YARD ASSOCIATE [address] [place] [address] Referral IDStatusReasonStart DateExpiration DateVisits RequestedVisits [id number] PCP Requested Referral [id number] / ProceduresReferred By ContactReferred To Contact Diagnoses Obesity, Class III, BMI 40-49.9 (morbid obesity) (HCC) Procedures ENDOCRINOLOGY DIETITIAN VISIT (MNT) MEDICAL NUTRITION ASSMT&IVNTJ INDIV EACH 15 DE MEDICAL NUTRITION ASSMT&IVNTJ INDIV EACH 15 DE MEDICAL NUTRITION ASSMT&IVNTJ INDIV EACH 15 DE MEDICAL NUTRITION ASSMT&IVNTJ INDIV EACH 15 DE Beth Allison APRN.YARD ASSOCIATE [address] [place] [address] Referral IDStatusReasonStart DateExpiration DateVisits RequestedVisits [id number] PCP Requested Referral [id number] / ProceduresReferred By ContactReferred To ContactPsychology Diagnoses Anxiety and depression Procedures CONSULT TO PSYCHOLOGY OFFICE/OUTPATIENT [facility] 60 MINUTES Beth Allison APRN.YARD ASSOCIATE [address] [place] [address] Referral IDStatusReasonStart DateExpiration DateVisits RequestedVisits [id number] Review PCP Requested Referral [id number] / ProceduresReferred By ContactReferred To ContactCT IMAGING Diagnoses Elevated testosterone level Procedures CT ADRENAL/PELVIS WO/W IVCON CT ABD & PELVIS W/WO CONTRST 1+ BODY REGNS Kameron White MD [facility] [place] [address] Ct Imaging [place] [address] Referral IDStatusReasonStart DateExpiration DateVisits RequestedVisits [id number] Request Auto-Generated Referral [id number] / ProceduresReferred By ContactReferred To Contact Diagnoses Class 3 severe obesity with body mass index (BMI) of 40.0 to 44.9 in adult, unspecified obesity type, unspecified whether serious comorbidity present (HCC) Procedures ENDOCRINE MEDICAL WEIGHT MANAGEMENT OFFICE/OUTPATIENT [facility] 60 MINUTES Kameron White MD [address] [place] [address] Referral IDStatusReasonStart DateExpiration DateVisits RequestedVisits [id number] PCP Requested Referral / Additional Source Comments REASON FOR VISIT (unrecogniz ed section and content) ReasonCommentsnew ptSpecialtyDiagnoses / ProceduresReferred By ContactReferred To ContactEndocrinology / [facility] Diagnoses Elevated DHEA Procedures OFFICE/OUTPATIENT [facility] 60 MINUTES AMB REFERRAL TO ENDOCRINOLOGY Megan Walker MD [address] [place] [address] Wilder Otero MD [address] [place] [address] Referral IDStatusReasonStart DateExpiration DateVisits RequestedVisits [id number] PCP/[id number] / Procedures Referred By ContactReferred To ContactCT IMAGING Diagnoses Elevated testosterone level Procedures CT ADRENAL/PELVIS WO/W IVCON CT ABD & PELVIS W/WO CONTRST 1+ BODY REGNS Kameron White MD [address] [place] [address] [place] [address] Referral IDStatusReasonStart DateExpiration DateVisits RequestedVisits [id number] Auto-Generated Referral [id number] PAReasonCommentsMedical Weight ManagementSpecialtyDiagnoses / ProceduresReferred By ContactReferred To Contact Diagnoses Class 3 severe obesity with body mass index (BMI) of 40.0 to 44.9 in adult, unspecified obesity type, unspecified whether serious comorbidity present (HCC) Procedures ENDOCRINE MEDICAL WEIGHT MANAGEMENT OFFICE/OUTPATIENT [facility] MDM 60 MINUTES Kameron White MD [address] [place] [address] Referral IDStatusReasonStart DateExpiration DateVisits RequestedVisits [id number] PCP Requested Referral /[id number] Nutrition TherapySpecialtyDiagnoses / ProceduresReferred By ContactReferred To Contact Diagnoses Obesity, Class III, BMI 40-49.9 (morbid obesity) (HCC) Procedures ENDOCRINOLOGY DIETITIAN VISIT (MNT) MEDICAL NUTRITION ASSMT&IVNTJ INDIV EACH 15 DE MEDICAL NUTRITION ASSMT&IVNTJ INDIV EACH 15 DE MEDICAL NUTRITION ASSMT&IVNTJ INDIV EACH 15 DE MEDICAL NUTRITION ASSMT&IVNTJ INDIV EACH 15 DE Beth Allison, CAN OPERATOR.YARD ASSOCIATE [address] [place] [address] Referral IDStatusReasonStart DateExpiration DateVisits RequestedVisits [id number] PCP Requested Referral [id number] VisitReasonComments Psychiatric EvaluationPCP NOMS referralsSpecialtyDiagnoses / ProceduresReferred By ContactReferred To ContactPsychiatry / Behavioral Health Diagnoses Mood disorder ([facility]/HCC) Procedures AR OFFICE/OUTPATIENT [facility] 60 MINUTES Ying Reid, CRISTINA [address] [place] [address] Emerald Morgan, CAN OPERATOR-[facility] [address] [address] Referral IDStatusReasonStart DateExpiration DateVisits RequestedVisits [id number] Specialty Services Required [id number] ManagementFollow-upWants to discuss Zoloft. Did edibles over weekend when felt off. Has not done edibles since and feels betterReasonCommentsAD (Adjustment Disorder)BipolarReasonCommentsRoutine VisitPatient present for office visit following in house US. Patient states she has some pain in her Left groin area that has a sharp pain. P: NegG: NegReasonCommentsAppointmentReasonCommentsConsultSpecialtyDiagnoses / Procedures Referred By ContactReferred To [facility] [place]note 2] Diagnoses Encounter for anatomic survey (HCC) Polyhydramnios in second trimester, single or unspecified fetus (HCC) Procedures OBSTETRIC ULTRASOUND WHI US PREG UTERUS AFTER 1ST TRIMEST GESTATION Provider, Deicer [employer] [facility] [address] [place] [address] Referral IDStatusReasonStart DateExpiration DateVisits RequestedVisits [id number] Auto-Generated Referral /[id number] VisitPatient present for PNC. Patient states she has a lot of lower perlvic pain. Patient is seeking a re ferral for Chiropractor. P: NegG: NegReasonCommentsRoutine VisitPatient present for PNC, patient states she noticed some bleeding last night. She also stated she took Monistat 7 for what she suspected to be a yeast infection with little to no relief. P: Neg G: NegReasonCommentsNon-stress TestReasonComments Routine VisitPatient present for PNC, patient P: G:ReasonComments Routine VisitPatient present for PNC, patient denies any issues or complaints at this time. P: Neg G: NegReasonCommentsPostpartum Caredepression ReasonCommentsPostpartum CarePatient present for PP care, patient denies any issues or complaints at this time. Patient states she has a lot going on at home at the moment and has seen her PCP to get put on some medication. Patient states she's no longer breast feeding, baby is bottle fed with formula. Formula: NeoSureReasonCommentsPolycystic Ovarian SyndromeReasonCommentsMedication PreauthorizationWegovy 0.25mg- Not covered INFORMATION SOURCE (unrecogn ized section and content) DATE CREATED AUTHOR 09/26/2022 [facility] DATE CREATED AUTHOR AUTHOR'S ORGANIZ ATION 02/20/2024 [facility] DATE CREATED AUTHOR AUTHOR'S ORGANIZ ATION 01/21/2025 [facility] DATE CREATED AUTHOR AUTHOR'S ORGANIZ ATION 04/12/2025 [facility] DATE CREATED AUTHOR AUTHOR'S ORGANIZ ATION 04/29/2025 [facility] DATE CREATED AUTHOR AUTHOR'S ORGANIZ ATION 05/05/2025 [facility] EPIC Care Teams (unrecognized sec tion and content) Team MemberRelationshipSpecialtyStart DateEnd Date Lei Salmeron MD [address] [place] [address] PCP - [facility]08/18/23 Ying Reid COAL BRIQUETTE MACHINE OPERATOR [address] [place] [address] Nurse PractitionerWellstar [facility]08/18/23Team MemberRelationshipSpecialtyStart DateEnd Date Lei Salmeron MD [address] [place] [address] PCP - [facility]08/18/23 Yign Reid NP [address] [place] [address] Nurse PractitionerWellstar [facility]08/18/23 Team Status: Active Member Role Status Dates Ying Reid Primary Care Provider Active Team Status: Inactive Member Role Status Dates Ying Reid Primary Care Provider Active Sta rt: December 04, 2023 End: December 03Terrell Clark ProviderActiveStart: December 04, 2023 End: December 04, 2023Team MemberRelationshipSpecialtyStart DateEnd Date Nicole Fraga [address] [place] [address] PCP - DdxyqdjQuadrkeeux64/28/15 Ying Reid CNP [address] [place] [address] Family Medicine01/15/24Team MemberRelationshipSpecialtyStart DateEnd Date Nicole Fraga [address] [place] [address] PCP - KhtapopLioulxqubm35/28/15 Ying Reid, YARD ASSOCIATE [address] [place] [address] [facility]01/15/24Te MemberRelationshipSpecialtyStart DateEnd Date Nicole Fraga [address] [place], [place] [id number] PCP - QdezekiZtigjcynhs91/28/15 Ying Reid, YARD ASSOCIATE [address] [place] [address] [facility]01/15/24Te MemberRelationshipSpecialtyStart DateEnd Date Nicole Fraga MD [address] [place] [address] PCP - [place] [address] Ying Reid, YARD ASSOCIATE [address] [place] [address] [facility]01/15/24Te MemberRelationshipSpecialtyStart DateEnd Date Nicole Fraga MD [address] [place] [address] PCP - GrvwwyeJjypqaktfe98/28/15 Ying Reid, YARD ASSOCIATE [address] [place] [address] [facility]01/15/24Team MemberRelationshipSpecialtyStart DateEnd Date Nicole Fraga MD [address] [place], [place] [id number] PCP - QbxtnojOzsiovsixf54/28/15 Ying Reid, YARD ASSOCIATE [address] [place] [address] [facility]01/15/24Team MemberRelationshipSpecialtyStart DateEnd Date Nicole Fraga MD [address] [place], [place] [id number] PCP - YiomiuyLkafinksdj02/28/15 Ying Reid, YARD ASSOCIATE [address] [place] [address] [facility]01/15/24Team MemberRelationshipSpecialtyStart DateEnd Date Nicole Fraga MD [address] [place], [place] [id number] PCP - IdcfusqVnbmveqjao16/28/15 Ying Reid, YARD ASSOCIATE [address] [place] [address] [facility]01/15/24Team MemberRelationshipSpecialtyStart DateEnd Date Lei Salmeron MD [address] [place] [address] [facility] - [facility]08/18/23 Ying Reid, COAL BRIQUETTE MACHINE OPERATOR [address] [place] [address] PCP - [employer]03/06/24 Ying Reid NP [address] [place] [address] Nurse Pract[facility] Medicine08/18/23Team MemberRelationshipSpecialtyStart DateEnd Date Lei Salmeron MD [address] [place] [address] PCP - [facility]08/18/23 Ying Reid NP [address] [place] [address] PCP - [employer]03/06/24 Ying Reid NP [address] [place] [address] Nurse PractitionerWell[facility]08/18/23Team MemberRelationshipSpecialtyStart DateEnd Date Lei Salmeron MD [address] [place] [address] PCP - [facility]08/18/23 Ying Reid NP [address] [place] [address] PCP - [employer]03/06/24 Ying Reid NP [address] [place] [address] Nurse Pract[facility]08/18/23Team MemberRelationshipSpecialtyStart DateEnd Date Lei Salmeron MD [address] [place] [address] PCP - [facility]Well[facility]08/18/23 Ying Reid NP [address] [place] [address] PCP - [employer]03/06/24 Ying Reid NP [address] [place] [address] Nurse PractitionerWell[facility]08/18/23Team MemberRelationshipSpecialtyStart DateEnd Date Lei Salmeron MD [address] [place] [address] PCP - [facility]Well[facility]08/18/23 Ying Reid NP [address] [place] [address] Nurse PractitionerWell[facility]08/18/23Team MemberRelationshipSpecialtyStart DateEnd Date Lie Salmeron MD [address] [place] [address] PCP - [facility]Well[facility]08/18/23 Ying Reid NP [address] [place] [address] Nurse PractitionerWell[facility]08/18/23Team MemberRelationshipSpecialtyStart DateEnd Date Lei Salmeron MD [address] [place] [address] PCP - Generalmily Medicine08/18/23 Ying Reid, CRISTINA [address] [place] [address] Nurse Pract[facility] Medicine08/18/23Team MemberRelationshipSpecialtyStart DateEnd Date Lei Salmeron MD [address] [place] [address] PCP - [facility] Medicine08/18/23 Ying Reid NP [address] [place] [address] Nurse PractitionerWell[facility]08/18/23Team MemberRelationshipSpecialtyStart DateEnd Date Lei Salmeron MD [address] [place] [address] PCP - [facility] Medicine08/18/23 Ying Reid NP [address] [place] [address] Nurse Pract[facility]08/18/23Team MemberRelationshipSpecialtyStart DateEnd Date Lei Salmeron MD [address] [place] [address] PCP - [facility]08/18/23 Ying Reid NP [address] [place] [address] PCP - [employer]03/06/24 Ying Reid NP [address] [place] [address] Nurse PractitionerWell[facility]08/18/23Team MemberRelationshipSpecialtyStart DateEnd Date Lei Salmeron MD [address] [place] [address] PCP - [facility]08/18/23 Ying Reid NP [address] [place] [address] PCP - [employer]03/06/24 Ying Reid NP [address] [place] [address] Nurse PractitionerWell[facility]08/18/23Team MemberRelationshipSpecialtyStart DateEnd Date Lei Salmeron MD [address] [place] [address] PCP - [facility]08/18/23 Ying Reid NP [address] [place] [address] Nurse PractitionerWell[facility]08/18/23 Emerald Morgan APRN-FUEL STORAGE TECHNICIAN [address] [facility] [address] [place] [address] Nurse PractitionerPsychiatr07/21/24Team MemberRelationshipSpecialtyStart DateEnd Date Lei Salmeron MD [address] [place] [address] PCP - [facility] Medicine08/18/23 Ying Reid NP [address] [place] [address] Nurse PractitionerWell[facility]08/18/23 Emerald Morgan CAN OPERATOR-FUEL STORAGE TECHNICIAN [address] [facility] [address] [place] [address] Nurse PractitionerPsychiatr07/21/24Team MemberRelationshipSpecialtyStart DateEnd Date Lei Salmeron MD [address] [place] [address] PCP - [facility]08/18/23 Ying Reid, CIRSTINA [address] [place] [address] Nurse PractitionerWell[facility]08/18/23 Emerald Morgan, CAN OPERATOR-FUEL STORAGE TECHNICIAN [address] [facility] [address] [place] [address] Nurse PractitionerPsychiatrTeam MemberRelationshipSpecialtyStart DateEnd Date Lei Salmeron MD [address] [place] [address] PCP - GeneralFamily Medicine08/18/23 Ying Reid NP [address] [place] [address] Nurse PractitionerWaverly Health Centerly Medicine08/18/23 Emerald Morgan, [facility] [address] [facility] [address] [place] [address] Nurse PractitionerPsychiatr07/21/24Team MemberRelationshipSpecialtyStart DateEnd Date Lei Salmeron MD [address] [place] [address] PCP - GeneralWaverly Health Centerly Medicine08/18/23 Ying Reid NP [address] [place] [address] [facility]08/18/23 Emerald Morgan, [facility] [address] [facility] [address] [place] [address] Nurse PractitionerPsychiatry1Team MemberRelationshipSpecialtyStart DateEnd Date Lei Salmeron MD [address] [place] [address] PCP - [facility]08/18/23 Ying Reid NP [address] [place] [address] Nurse PractitionerW[facility] Medicine08/18/23 Emerald Morgan, CAN OPERATOR-FUEL STORAGE TECHNICIAN [address] [facility] [address] [place] [address] Nurse PractitionerPsychiatry1Team MemberRelationshipSpecialtyStart DateEnd Date Lei Salmeron MD [address] [place] [address] PCP - [facility]08/18/23 Ying Reid NP [address] [place] [address] Nurse PractitionerWell[facility]08/18/23 Emerald Morgan, CAN OPERATOR-FUEL STORAGE TECHNICIAN [address] [facility] [address] [place] [address] Nurse PractitionerPsychiatry1 Team Status: Inactive Member Role Status Dates Ying Reid Primary Care Provider Active Sta rt: August 28, 2024 End: August 29, 2024Terrell Moran ProviderActiveStart: August 28, 2024 End: August 29, 2024 Team Status: Inactive Member Role Status Dates Ying Reid Primary Care Provider Active Sta rt: September 13, 2024 End: September 13bethany Arce RDAttdaija ProviderActiveStart: September 13, 2024 End: September 13, 2024Team MemberRelationshipSpecialtyStart DateEnd Date Lei Salmeron MD [address] [place] [address] PCP - [facility]08/18/23 Ying Reid NP [address] [place] [address] Nurse Pract[facility] Medicine08/18/23 Emerald Morgan, CAN OPERATOR-FUEL STORAGE TECHNICIAN [address] [facility] [address] [place] [address] Nurse PractitionerPsychiatr07/21/24Team MemberRelationshipSpecialtyStart DateEnd Date Lei Salmeron MD [address] [place] [address] PCP - [facility]08/18/23 Ying Reid NP [address] [place] [address] Nurse PractitionerWell[facility]08/18/23 Emerald Morgan, CAN OPERATOR-FUEL STORAGE TECHNICIAN [address] [facility] [address] [place] [address] Nurse PractitionerCardinal Hill Rehabilitation [facility]07/21/24 Team Status: Inactive Member Role Status Dates Ying Reid Primary Care Provider Active Sta rt: September 28, 2024 End: September 28riRon Griffin ProviderActiveStart: September 28, 2024 End: September 28, 2024Team MemberRelationshipSpecialtyStart DateEnd Date Lei Salmeron MD [address] [place] [address] PCP - [facility]08/18/23 Ying Reid NP [address] [place] [address] Nurse PractitionerFapaul a. [facility] Medicine08/18/23 Emerald Morgan, CAN OPERATOR-FUEL STORAGE TECHNICIAN [address] [facility] [place] [address] Nurse PractitionerPsychiatr07/21/24Team MemberRelationshipSpecialtyStart DateEnd Date Nicole Fraga MD [address] [place] [address] PCP - PtxvfuvCgsjsryokl11/28/15 Ying Reid, YARD ASSOCIATE [address] [place] [address] [facility]01/15/24 Team Status: Inactive Member Role Status Dates Ying Reid Primary Care Provider Active Sta rt: October 15, 2024 End: October 15, 2024Kathldaquan Juan DOAttdaija ProviderActiveStart: October 15, 2024 End: October 15, 2024Team MemberRelationshipSpecialtyStart DateEnd Date Nicole Fraga MD [address] [place] [address] PCP - XqkadijNrknicaurk06/28/15 Ying Reid, YARD ASSOCIATE [address] [place] [address] [facility]01/15/24Team MemberRelationshipSpecialtyStart DateEnd Date Nicole Fraga MD [address] [place] [id number] PCP - XmubczeQaxotjncqn00/28/15 Ying Reid, YARD ASSOCIATE [address] [place] [address] Family Medicine01/15/24Team MemberRelationshipSpecialtyStart DateEnd Date Unique Zee MD [address] [place] [address] PCP - GeneralPediatric Infectious Disease08/05/18Team MemberRelationshipSpecialty Start DateEnd Date Lei Salmeron MD [address] [place] [address] PCP - [facility]08/18/23 Ying Reid NP [address] [place] [address] Nurse PractitionerFaEffingham Hospital08/18/23 Emerald Morgan APRN-FUEL STORAGE TECHNICIAN [address] [facility] [address] [place] [address] Nurse PractitionerPsychiatr07/21/24Team MemberRelationshipSpecialtyStart DateEnd Date Lei Salmeron MD [address] [place] [address] PCP - Generalmily Medicine08/18/23 Ying Reid NP [address] [place] [address] Nurse Pract[facility]erW[facility]am [facility] Medicine08/18/23 Emerald Morgan APRN-FUEL STORAGE TECHNICIAN [address] [facility] [address] [place] [address] Nurse PractitionerPsychiatr07/21/24Te MemberRelationshipSpecialtyStart DateEnd Date Lei Salmeron MD [address] [place] [address] PCP - [facility]08/18/23 Ying Reid NP [address] [place] [address] Nurse PractitionerWell[facility]08/18/23 Emerald Morgan, CAN OPERATOR-FUEL STORAGE TECHNICIAN [address] [facility] [address] [place] [address] Nurse PractitionerPsychiatr07/21/24Te MemberRelationshipSpecialtyStart DateEnd Date Lei Salmeron MD [address] [place] [address] [facility]08/18/23 Ying Reid NP [address] [place] [address] Nurse PractitionerWell[facility]08/18/23 Emerald Morgan, CAN OPERATOR-FUEL STORAGE TECHNICIAN [address] [facility] [address] [place] [address] Nurse PractitionerCardinal Hill Rehabilitation [facility]07/21/24Te MemberRelationshipSpecialtyStart DateEnd Date Lei Salmeron MD [address] [place] [address] PCP - Generalmily Medicine08/18/23 Ying Reid, CRISTINA [address] [place] [address] Nurse Pract[facility]erW[facility] Medicine08/18/23 Emerald Morgan, CAN OPERATOR-[facility] [address] [facility] [address] [place] [address] Nurse PractitionerPsychiatr07/21/24Team MemberRelationshipSpecialtyStart DateEnd Date Lei Salmeron MD [address] [place] [id number] PCP - [facility] Medicine08/18/23 Ying Reid NP [address] [place] [phone] Nurse Pract[facility]08/18/23 Emerald Morgan, [facility] [address] [facility] [address] [place] [address] Nurse PractitionerPsychiatr07/21/24Team MemberRelationshipSpecialtyStart DateEnd Date Lei Salmeron MD [address] [place] [address] [facility] Ying Reid NP [address] [place] [phone] [facility]08/18/23 Emerald Morgan, CAN OPERATOR-FUEL STORAGE TECHNICIAN [address] [place] [address] Nurse PractitionerPsychiatry1 Team Status: Active Member Role Status Dates NON STAFF Primary Care Provider Active Team Status: Inactive Member Role Status Dates Ying Reid Primary Care Provider Active Sta rt: November 22, 2024 End: November 22, 2024KatFabien Wells ProviderActiveStart: November 22, 2024 End: November 22, 2024 Team Status: Inactive Member Role Status Dates Ying Reid Primary Care Provider Active Sta rt: December 15, 2024 End: December 15, 2024Ron Luis ProviderActiveStart: December 15, 2024 End: December 15, 2024 Team Status: Inactive Member Role Status Dates Megan Walker MD Attending Provider Active St art: December 19, 2024 End: December 19, 2024 Team Status: Inactive Member Role Status Dates Ying Reid Primary Care Provider Active Sta rt: December 19, 2024 End: December 19, 2024Ron Luis ProviderActiveStart: December 19, 2024 End: December 19, 2024 Team Status: Inactive Member Role Status Dates NON STAFF Primary Care Provider Active Start: December 22, 2024 End: December 22, 2024KatFabien Wells ProviderActiveStart: December 22, 2024 End: December 22, 2024 Team Status: Inactive Member Role Status Dates NON STAFF Primary Care Provider Active Start: December 27, 2024 End: December 27, 2024Ron Luis ProviderActiveStart: December 27, 2024 End: December 27, 2024 Team Status: Inactive Member Role Status Dates NON STAFF Primary Care Provider Active Start: December 31, 2024 End: January 03riKyle Griffin ProviderActiveStart: December 31, 2024 End: January 03rimary Trejo MDAttending ProviderActiveStart: December 31, 2024 End: January 03, 2025 Team Status: Inactive Member Role Status Dates NON STAFF Primary Care Provider Active Start: January 06, 2025 End: January 06Ron Keller ProviderActiveStart: January 06, 2025 End: January 06, 2025 Team Status: Inactive Member Role Status Dates NON STAFF Primary Care Provider Active Start: January 07, 2025 End: January 07Ron Keller ProviderActiveStart: January 07, 2025 End: January 07, 2025 Name Effective Dates (start - stop) Status Members No Information Team Status: Inactive Member Role Status Dates Rosa Lal APRN Attending Provider Active Start: February 03, 2025 End: February 03, 2025Ying Gannon [facility] ProviderActiveStart: February 03, 2025 End: February 03, 2025Team MemberRelationshipSpecialtyStart DateEnd Date Lei Salmeron MD [address] [place] [phone] PCP - [facility] Medicine08/18/23 Ying Reid NP [address] [place] [phone] [facility]08/18/23 Emerald Morgan, CAN OPERATOR-FUEL STORAGE TECHNICIAN [address] [address] [place] [address] Nurse PractitionerPsychiatry1/Team MemberRelationshipSpecialtyStart DateEnd Date Lei Salmeron MD [address] [place] [phone] PCP - [facility] Medicine08/18/23 Ying Reid NP [address] [place] [phone] Nurse PractitionerFamily Medicine08/18/23 Emerald Morgan APRN-FUEL STORAGE TECHNICIAN [address] [address] Nurse PractitionerPsychiatr07/21/24Team MemberRelationshipSpecialtyStart DateEnd Date Nicole Fraga MD [address] [place] [id number] PCP - BompyzcBdedfzkwko86/28/15 Ying Reid, YARD ASSOCIATE [address] [place], [place] [address] [address] Family Medicine01/15/24 Team Status: Active Member Role Status Dates Ying Reid COAL BRIQUETTE MACHINE OPERATOR-C Primary Care Provider Active Team Status: Inactive Member Role Status Dates Rosa Lal APRN Attending Provider Active Start: February 03, 2025 End: February 03, 2025iYng Reid COAL BRIQUETTE MACHINE OPERATOR-CPrimary Care ProviderActiveStart: February 03, 2025 End: February 03, 2025 Team Status: Inactive Member Role Status Dates Ying Reid , COAL BRIQUETTE MACHINE OPERATOR-C Primary Care Provider Active Start: March 22, 2025 End: March 22, 2025Ying Reid COAL BRIQUETTE MACHINE OPERATOR-CAttending ProviderActiveStart: March 22, 2025 End: March 22, 2025 Team Status: Inactive Member Role Status Dates Ying Reid , COAL BRIQUETTE MACHINE OPERATOR-C Primary Care Provider Active Start: April 18, 2025 End: April 18Shorty Carbajal ProviderActiveStart: April 18, 2025 End: April 18, 2025 Team Status: Inactive Member Role Status Dates Ying Reid , COAL BRIQUETTE MACHINE OPERATOR-C Primary Care Provider Active Start: April 20, 2025 End: April 20, 2025Ying Reid COAL BRIQUETTE MACHINE OPERATOR-CAttending ProviderActiveStart: April 20, 2025 End: April 20, 2025Team MemberRelationshipSpecialtyStart DateEnd Date Lei Salmeron MD PCP - [facility]08/18/23 Ying Reid NP [address] [place] [address] PCP - [employer]03/06/2412 Ying Reid NP [facility]08/18/23 Emerald Morgan, CAN OPERATOR-[facility] [address] [place] [address] Nurse PractitionerPsychiatr07/21/24 Liudmila Hadley, [facility] [address] [place] [address] Social WorkerHe[facility] Health07/06/2409Team MemberRelationshipSpecialtyStart DateEnd Date Lei Salmeron MD PCP - [facility] Medicine08/18/23 Ying Ried NP [facility]08/18/23 Emerald Morgan, CAN OPERATOR-[facility] [address] [place] [address] Nurse PractitionerPsychiatry1 Goals (unrecognized section and content) Goals may be documented in a n alternate section Source Comments (unrecognize d section and content) In the event this informatio n is protected by the Federal Confidentiality of Alcohol and Drug Abuse Patient Records regulations: The Federal rules restrict any use of the information to criminally investigate or prosecute any alcohol or drug abuse patient.[facility] HospitalIn the event this information is protected by the Federal Confidentiality of Alcohol and Drug Abuse Patient Records regulations: The Federal rules restrict any use of the information to criminally investigate or prosecute any alcohol or drug abuse patient.[facility] HospitalIn the event this information is protected by the Federal Confidentiality of Alcohol and Drug Abuse Patient Records regulations: The Federal rules restrict any use of the information to criminally investigate or prosecute any alcohol or drug abuse patient.[facility] HospitalIn the event this information is protected by the Federal Confidentiality of Alcohol and Drug Abuse Patient Records regulations: The Federal rules restrict any use of the information to criminally investigate or prosecute any alcohol or drug abuse patient.[facility] HospitalIn the event this information is protected by the Federal Confidentiality of Alcohol and Drug Abuse Patient Records regulations: The Federal rules restrict any use of the information to criminally investigate or prosecute any alcohol or drug abuse patient.[facility] HospitalIn the event this information is protected by the Federal Confidentiality of Alcohol and Drug Abuse Patient Records regulations: The Federal rules restrict any use of the information to criminally investigate or prosecute any alcohol or drug abuse patient.[facility] HospitalIn the event this information is protected by the Federal Confidentiality of Alcohol and Drug Abuse Patient Records regulations: The Federal rules restrict any use of the information to criminally investigate or prosecute any alcohol or drug abuse patient.[facility] HospitalIn the event this information is protected by the Federal Confidentiality of Alcohol and Drug Abuse Patient Records regulations: The Federal rules restrict any use of the information to criminally investigate or prosecute any alcohol or drug abuse patient.[facility] HospitalIn the event this information is protected by the Federal Confidentiality of Alcohol and Drug Abuse Patient Records regulations: The Federal rules restrict any use of the information to criminally investigate or prosecute any alcohol or drug abuse patient.[facility] HospitalIn the event this information is protected by the Federal Confidentiality of Alcohol and Drug Abuse Patient Records regulations: The Federal rules restrict any use of the information to criminally investigate or prosecute any alcohol or drug abuse patient.[facility] HospitalIn the event this information is protected by the Federal Confidentiality of Alcohol and Drug Abuse Patient Records regulations: The Federal rules restrict any use of the information to criminally investigate or prosecute any alcohol or drug abuse patient.[facility] HospitalIn the event this information is protected by the Federal Confidentiality of Alcohol and Drug Abuse Patient Records regulations: The Federal rules restrict any use of the information to criminally investigate or prosecute any alcohol or drug abuse patient.[facility] HospitalIn the event this information is protected by the Federal Confidentiality of Alcohol and Drug Abuse Patient Records regulations: The Federal rules restrict any use of the information to criminally investigate or prosecute any alcohol or drug abuse patient.[facility] HospitalIn the event this information is protected by the Federal Confidentiality of Alcohol and Drug Abuse Patient Records regulations: The Federal rules restrict any use of the information to criminally investigate or prosecute any alcohol or drug abuse patient.[facility] HospitalIn the event this information is protected by the Federal Confidentiality of Alcohol and Drug Abuse Patient Records regulations: The Federal rules restrict any use of the information to criminally investigate or prosecute any alcohol or drug abuse patient.[facility] FOR RECORDS PERTAINING TO PATIENTS WHO ARE [...] BE BASED ON THE PRIMARY CLINICAL RECORDS. [facility] [employer] [facility]. provides no warranty or guarantee of the accuracy or completeness of information in this document.
--- OUTSIDE RECORDS SUMMARY | 2025-06-04 00:21 | XMS_ITS | Clinical Summary ---
Author Organization [facility] Address [address] [place] [address] Care Team Providers Care Crushing Mill Operator Name Role Phone Ying Reid IMMIGRATION CASE WORKER Unavailable [phone] Emerald Morgan MOVIE SHOT CAMERA OPERATOR-SLAB WORKER Unavailable Lei Salmeron MD Primary Care Provider [phone] Allergies Active AllergyReactionsCriticalityNoted SuezGsdicsvzDkynjuuxevvHygvJoa81/09/2024 Medications MedicationSigDispense QuantityRefillsLast FilledStart DateEnd DateStatus Progesterone 200 MG suppository Indications:Miscarriage ([facility])Insert 200 mg into the vagina at bedtime 30 suppository 4Active Additional Information Patient not taking.Reported on 05/04/2025 magnesium oxide (Mag-Ox) 400 MG tablet Take 1 tablet by mouth at wacisvy53/09/2025Active magnesium oxide (Mag-Ox) 400 (240 Mg) MG tablet Take 400 mg by mouth at yeeilen67/08/2025Active NIFEdipine XL (Procardia XL) 30 MG 24 hr tablet Indications:Uterine contractions ([facility])Take 1 tablet (30 mg) by mouth Daily Do not crush, chew, or split. 5 tablet /6Active Additional Information Patient not taking.Reported on 05/04/2025 ferrous sulfate (Fe Tabs) 325 (65 Fe) MG EC tablet Indications:Iron deficiency anemia, unspecified iron deficiency anemia typeTake 1 tablet (325 mg) by mouth in the morning. Take with meals. Do not crush, chew, or split. 30 tablet [id number] Additional Information Patient not taking.Reported on 05/04/2025 buPROPion (Wellbutrin) 100 MG tablet Indications:Mild episode of recurrent major depressive disorderTake 1 tablet (100 mg) by mouth in the morning and 1 tablet (100 mg) before bedtime. 60 tablet 5Active FLUoxetine (PROzac) 20 MG capsule Take 20 mg by mouth DailyActive traZODone (Desyrel) 50 MG tablet Take 50 mg by mouth at bedtimeActive levonorgestrel-ethinyl estradiol (Nordette) 0.15-30 MG-MCG tablet Take 1 tablet by mouth DailyActive NALTREXONE HCL PO Take 4 mg by mouth in the morning and 4 mg at noon and 4 mg in the evening and 4 mg before bedtime.Active aspirin 81 MG chewable tablet Indications:Miscarriage ([facility])Chew 1 tablet (81 mg) Daily 30 tablet Expired Additional Information Patient not taking.Reported on 05/04/2025 Active Problems ProblemNoted DateDiagnosed DateStrain of thoracic back zkxpkp0305/17/2024 Assessment & Plan (05/17/2024 10:14 AM EST): Ice to affected area 4 times daily for 20 minutes Add NSAID, and cont tylenol as well Fu if not better ANGEL (generalized anxiety disorder)03/09/2024annabis abuse03/09/2024Major depression, hiengvitp63/22/2024 Assessment & Plan (02/13/2025 5:23 PM EDT): Hx of depression/anxiety, has been off meds [...] Please contact the office if these occur. Rash and nonspecific skin cqistdec07/09/2024 Assessment & Plan (01/12/2024 12:56 PM EDT): No new soaps/lotions etc Recommend trial of OTC cortisone cream and cetirizine Fu if not better Paresthesia of foot, lsbmyjjcr63/09/2024 Assessment & Plan (01/12/2024 12:57 PM EDT): Pain and NT to feet, mother with hx of small fiber neuropathy Wonders if this is what she has Would like referral to neurology Other chest pain12/10/2023 Assessment & Plan (01/04/2024 7:20 PM EDT): No further episodes of chest pain since her last visit Assessment & Plan (12/10/2023 10:37 AM EDT): Reviewed ER notes and discussed with pt: at this time pt does not feel she wants to proceed with getting a full cardiac work up, she felt fine the next day, and she will RTO or go to ER if again has similar symptoms and will proceed at that time with work up I agree that this is a reasonable POC Frequent clafvzjprz48/21/2024 Assessment & Plan (11/24/2023 10:30 AM EDT): Reviewed possible differentials Would like referred to ENT Semhqhii92/13/2024 Assessment & Plan (10/01/2023 2:40 PM EDT): Trazodone did not help in the past She is actively trying to get , so detention meds may be difficult We will trial eszopiclone d/t classification Szvmxtrhknlgfzoj43/13/2024 Assessment & Plan (02/15/2024 7:26 PM EDT): Continue with endo Breakthrough bleeding on Weqtpxbkr98/13/2024Torus frhfvqkao01/13/2024 Overview (08/18/2023): Polycystic Ovarian Disease; pt had seen quality control technician and not a confirmed dx at this time. Polycystic ovary fotfvmmf99/13/2024 Assessment & Plan (01/04/2024 7:25 PM EDT): Cannot tolerate metformin , recommend speaking to endo regarding Pt would like to see a new endo, and [facility] had referred , told pt to contact [facility] for a new provider Mood cpffayjl15/13/2024 Assessment & Plan (02/15/2024 7:26 PM EDT): Will hold on meds per pt's request Assessment & Plan (01/12/2024 12:55 PM EDT): Pt stopped lamictal, and while I do not think the rash is related, we will hold on restarting. I will refer to psych for treatment Assessment & Plan (01/04/2024 7:21 PM EDT): Will increase dose on lamictal to 100mg Fu in 6 weeks Sooner if needed Assessment & Plan (11/24/2023 10:31 AM EDT): Advised of side effects and symptoms to monitor for Will fu in 4 weeks for recheck Anxiety and tanoneglwm48/13/2024 Overview (08/18/2023): meds in the past: sertraline, fluoxetine, trazodone, abilify Assessment & Plan (02/15/2024 7:27 PM EDT): Remains off meds Assessment & Plan (12/10/2023 10:35 AM EDT): Possible panic attack during the time this was happening when she was fishing as she experienced NTto bilat hands/feet, and around mouth No med changes at this time Assessment & Plan (10/01/2023 2:04 PM EDT): Was on medication, currently not and her symptoms are fairly stable Vhpdpwle51/13/2024llergic snlwbzbu92/13/0535Belolislss29/13/2024 Assessment & Plan (08/18/2023 9:54 AM EST): Tylenol, motrin prn Warm salt water gargles Add zithromax Fu if not better Obesity, morbid, BMI 40.0-49.9008/18/2023 Assessment & Plan (02/13/2025 5:24 PM EDT): Discussed with patient their BMI (actual, verses recommended). We have also discussed lifestyle modifications: attempts to perform physical activity as chronic conditions allow, also to monitor dietary intake: increasing protein/fruits/veggies and lowering carb intake (unless contraindicated). Limit sodas, juices, and sugary drinks. COVID-19 virus /15/2022 Overview (08/18/2023): tested positive Assessment & Plan (08/18/2023 9:52 AM EST): + at home test in last 14 days Feeling better still with laryngitis Encounters DateTypeDepartmentCare JsyyXfibhpzxbqb51/13/2025 3:00 PM ESTOffice Visit [facility] [address] [place] [phone] Jose Castillo DPM Ingrown toenail (Primary Dx); Left foot pain; Pes planus of both feet; Pain in both feet05/18/2025amboo flowsheet [facility] [address] [place] [address] Jose Castillo DPM 05/18/20254967Aaonjl12/30/2025 8:00 AM EDTOffice Visit [facility] [address] [place] [phone] Jose Castillo, SONALI Ingrown toenail (Primary Dx); Left foot pain05/04/20256398Kldgun96/14/2025Refill [facility] [address] [place] [address] Megan Hui MD Miscarriage ([facility])from Last 3 Months Immunizations ImmunizationAdministration DatesNext GitQCkM4802/08/2015,02/24/2008,03/01/2003, 2002,2002Hep A, ped/adol, 2 dose04/06/2019,10/05/2018Hep B, Xmjvudgmigk49/27/2003,2002,2002Hep B, adult03/01/2003,2002, 2002Hib (PRP-OMP)03/01/2003,2002,2002IPV02/24/2008,03/01/2003, 2002,2002MMR02/24/2008,07/14/2003Meningococcal B, Recombinant 11/04/2018,10/05/2018Meningococcal OWW9Z9510/05/2018Pneumococcal Conjugate PCV 13 03/01/2003,2002,09/16/20022097Snpmfprfd81/21/2008,10/30/2003 Family History Medical HistoryRelationNameCommentsCrohn's diseaseFatherJimDepressionFatherJim HypotensionFatherJimanxietyFatherJimNo Known ProblemsMaternal GrandfatherCancer Maternal GrandmotherJackieOvarian cancerMaternal GrandmotherJackieGoutMother Darby brunnerHypertensionMotherNicole brunnerNeuropathyMotherNicole lyudmila blood clotsOtherpaternal sideNo Known ProblemsPaternal GrandfatherDepression Paternal GrandmotherLindaNo Known ProblemsSisterRelationNameStatusCommentsFather JimAliveMaternal GrandfatherMaternal GrandmotherJackieMotherNicole brunnerAlive OtherPaternal GrandfatherPaternal GrandmotherLindaSisterAlive Social History Tobacco UseTypesPacks/DayYears UsedDateSmoking Tobacco: NeverSmokeless Tobacco: Never Tobacco Cessation:Counseling Given: Not Answered Alcohol UseStandard Drinks/WeekCommentsNot Currently1 (1 standard drink = 0.6 oz pure alcohol)Caffeine intake: 100 mg/dailyHumiliation, Afraid, Rape, and Kick questionnaireAnswerDate RecordedWithin the last year, have you been afraid of your partner or ex-partner?No08/04/2023Within the last year, have you been humiliated or emotionally abused in other ways by your partner or ex-partner?No 08/04/2023Within the last year, have you been kicked, hit, slapped, or otherwise physically hurt by your partner or ex-partner?No08/04/2023Within the last year, have you been raped or forced to have any kind of sexual activity by your part ner or ex-partner?No08/04/2023Social Connection and Isolation PanelAnswerDate RecordedIn a typical week, how many times do you talk on the phone with family, friends, or neighbors?Once a week08/04/2023How often do you get together with friends or relatives?Never08/04/2023How often do you attend jew or druze services?Never08/04/2023o you belong to any clubs or organizations such as jew groups, unions, fraternal or athletic groups, or school groups?No 08/04/2023How often do you attend meetings of the clubs or organizations you belong to?Never08/04/2023re you , , , , never , or living with a partner?Living with qxvdjsf0608/04/2023UDIT-CAnswerDate RecordedQ1: How often do you have a drink containing alcohol?Monthly or less 02/25/2024Q2: How many drinks containing alcohol do you have on a typical day when you are drinking?1 or Q3: How often do you have six or more drinks on one occasion?Never02/25/2024Overall Financial Resource Strain (CARDIA) AnswerDate RecordedHow hard is it for you to pay for the very basics like food, housing, medical care, and heating?Very hard08/04/2023HQ-2AnswerDate Recorded Patient Health Questionnaire-2 Wiout869[facility] [employer] - Occupational Stress QuestionnaireAnswerDate RecordedDo you feel stress - tense, restless, nervous, or anxious, or unable to sleep at night because your mind is troubled all the time - these days?To some wfiafr5008/04/2023Exercise Vital SignAnswerDate RecordedOn average, how many days per week do you engage in moderate to strenuous exercise (like a brisk walk)?2 days08/04/2023On average, how many minutes do you engage in exercise at this level?40 min08/04/2023Hunger Vital SignAnswerDate RecordedWithin the past 12 months, you worried that your food would run out before you got the money to buymore.Often true08/04/2023 Within the past 12 months, the food you bought just didn't last and you didn't have money to get more.Often true08/04/2023RAPARE - TransportationAnswerDate RecordedIn the past 12 months, has lack of transportation kept you from medical appointments or from getting medications?No08/04/2023In the past 12 months, has lack of transportation kept you from meetings, work, or from getting things needed for daily living?No08/04/2023Housing Stability Vital SignAnswerDate RecordedIn the last 12 months, was there a time when you were not able to pay the mortgage or rent on time?No08/04/2023In the last 12 months, how many places have you lived?In the last 12 months, was there a time when you did not have a steady place to sleep or slept in ashelter (including now)?No 08/04/2023Edinburgh Depression ScaleAnswerDate RecordedEdinburgh Depression Scale Ifvyr2766/12/2025The thought of harming myself has occurred to me.Never02/14/2025CommentsUnknownSex and Gender Information ValueDate RecordedSex Assigned at ZizkkEwzjup62/17/2023 10:40 AM EDTLegal Sex Eqqfiv3809/17/2022 6:52 PM EDTGender QayckuomYvxhrp34/17/2023 10:40 AM EDTSexual RhxpldzyltsLgwpyitg44/17/2023 10:40 AM EDTOccupationIndustryJob Start DateJob End DateDunkin' DonutsNot on fileNot on fileNot on file Last Filed Vital Signs Vital SignReadingTime TakenCommentsBlood Ywnjbeof723/72002/14/2025 10:32 AM EDT Irdmr5103 4:46 PM UIFRffdzofnxyp80 ??C (98.6 ??F)02/13/2025 4:46 PM EDT Respiratory Iasl3561 4:46 PM EDTOxygen Orqotnqgab59%02/13/2025 4:46 PM EDTInhaled Oxygen Concentration--Zhnjmc76.6 kg (202 lb)02/14/2025 10:32 AM EDT Mvctve607.5 cm (5' 2 )02/15/2024 6:58 PM EDTBody Mass Index36.95002/15/2024 6:58 PM EDT Plan of Treatment DateTypeDepartmentCare Team (Latest Contact Info)Gloxnvgdycl50/12/2026 10:00 AM ESTOffice Visit [facility] [address] [place] [address] Megan Hui MD [address] [place] [address] Insurance Care Teams Team MemberRelationshipSpecialtyStart DateEnd Date Lei Salmeron MD [address] [place] [phone] [facility] Altt[facility]ky[facility]/25 Ying Reid NP [address] [place] [phone] Nurse Pract[facility]er[facility] Medicine08/18/23 Emerald Morgan APRN-SLAB WORKER [address] [place] [address] [place] [address] Nurse PractitionerPsychiatr07/21/24
--- OUTSIDE RECORDS SUMMARY | 2025-06-04 00:21 | XMS_ITS | Clinical Summary ---
Author Organization [facility] Address [address] [place] [address] Care Team Providers Care Supervisor Sawing And Assembly Name Role Phone Walker Avalos MD Primary Care Provider [phone] Allergies No known active allergies Medications MedicationSigDispense QuantityRefillsLast FilledStart DateEnd DateStatus BIOTIN ORAL Take by mouth.Active metFORMIN (GLUCOPHAGE) 500 mg oral tablet Take by mouth.Active amoxicillin (AMOXIL) 500 mg oral capsule Take by mouth.Active JULEBER 0.15-0.03 mg oral tablet Take 1 tablet by mouth once daily.08/29/2015Active spironolactone (ALDACTONE) 100 mg oral tablet Indications:Hair lossTake 1 tablet by mouth once daily. 30 tablet Active Active Problems No known active problems Social History Tobacco UseTypesPacks/DayYears UsedDateSmoking Tobacco: NeverComments UnknownSex and Gender InformationValueDate RecordedSex Assigned at BirthNot on fileLegal SshPfunxd72/26/2017 10:36 AM ESTGender IdentityNot on fileSexual OrientationNot on file Last Filed Vital Signs Vital SignReadingTime TakenCommentsBlood Pressure--Pulse--Temperature-- Respiratory Rate--Oxygen Saturation--Inhaled Oxygen Concentration--Hzyxco49.2 kg (179 lb 0.2 oz)08/11/2016 10:30 AM ESTHeight--Body Mass Index-- Plan of Treatment Health MaintenanceDue DateLast DoneCommentsMMR Vaccine (1 of 1 - Standard series)2003DTaP/Tdap/Td Vaccine (1 - Tdap)2009Varicella Vaccine (1 of 2 - 13+ 2-dose series)2015HPV Vaccine (1 - 3-dose series)2017 Meningococcal B Vaccine (1 of 2 - Standard)2018Hepatitis B Vaccine (1 of 3 - 19+ 3-dose series)1COVID-19 Vaccine (2024- season)2025 Influenza Vaccine (#1)2025HIB VaccineAged OutNo longer eligible based on patient's age to complete this topicHepatitis A VaccineAged OutNo longer eligible based on patient's age to complete this topicIPV VaccineAged OutNo longer eligible based on patient's age to complete this topicMeningococcal ACWY VaccineAged OutNo longer eligible based on patient's age to complete this topic Pneumococcal VaccineAged OutNo longer eligible based on patient's age to complete this topicRSV AntibodiesAged OutNo longer eligible based on patient's age to complete this topicRotavirus VaccineAged OutNo longer eligible based on patient's age to complete this topic Care Teams Team MemberRelationshipSpecialtyStart DateEnd Date Walker Avalos MD [facility] [facility], [facility] [place] [address] PCP - GeneralGeneral Practice07/31/16
--- OUTSIDE RECORDS SUMMARY | 2025-06-04 00:21 | XMS_ITS | Clinical Summary ---
Author Organization [facility] Address [facility] [facility], [address] [place] [address] Care Team Providers Care Sales Effectiveness Manager Name Role Phone Walker Avalos MD Primary Care Provider [phone] Allergies No known active allergies Medications MedicationSigDispense QuantityRefillsLast FilledStart DateEnd DateStatus ibuprofen (ADVIL;MOTRIN) 200 MG tablet Take 200 mg by mouth every 6 hours as needed for Pain.Active spironolactone (ALDACTONE) 50 MG tablet Take 50 mg by mouth daily Dr. Ordonez for diaphoreisiActive Cholecalciferol 2000 units CAPS Take 2,000 Units by mouthActive Biotin 5 MG TBDP Take 2 capsules by mouthActive cyanocobalamin (V-R VITAMIN B-12) 500 MCG tablet Take 1 tablet by mouthActive triamcinolone acetonide (KENALOG) 10 MG/ML injection Intralesional kenalog 5 mg/ml up to 3 ml to areas of hair loss.01/02/2017Active Active Problems ProblemNoted DateDiagnosed DateEnvironmental ctbdkgetj18/25/2016PCOS (polycystic ovarian syndrome)08/21/2015Alopecia of scalp08/21/2015 Immunizations ImmunizationAdministration DatesNext UnxMAiW2802/08/2015,02/24/2008,03/01/2003, 2002,2002Hepatitis B (Engerix-B)03/01/2003,2002,2002Hib PRP-OMP, PEDVAXHIB, (age 2m-6y, Adlt Risk), IM, 0.5mL03/01/2003,2002, 2002MMR, PRIORIX, M-M-R II, (age 12m+), SC, 0.5mL08,07/14/2003 Pneumococcal, PCV-13, PREVNAR 13, (age 6w+), IM, 0.5mL08,2002, 2002Poliovirus, IPOL, (age 6w+), SC/IM, 0.5mL08,03/01/2003, 2002,2002Varicella, VARIVAX, (age 12m+), SC, 0.5mL08, 10/30/2003 Family History Medical HistoryRelationNameCommentsCrohn's DiseaseFatherCancerMaternal GrandmotherRelationNameStatusCommentsFatherMaternal GrandmotherMotherAliveSister Alive Social History Tobacco UseTypesPacks/DayYears UsedDateSmoking Tobacco: Passive Smoke Exposure - Never SmokerSmokeless Tobacco: NeverAlcohol UseStandard Drinks/WeekCommentsNo0 (1 standard drink = 0.6 oz pure alcohol)CommentsUnknownSex and Gender InformationValueDate RecordedSex Assigned at BirthNot on fileLegal SexFemale 08/15/2012 9:43 PM ESTGender IdentityNot on fileSexual OrientationNot on file Last Filed Vital Signs Vital SignReadingTime TakenCommentsBlood Dvmlomiy364/7708 9:17 AM EDT Ceffp008802/04/2018 9:17 AM RPDEnwbqujmmqm85.7 ??C (98.1 ??F)02/04/2018 9:17 AM EDTRespiratory Svgh335502/04/2018 9:17 AM EDTOxygen Saturation--Inhaled Oxygen Concentration--Pyopkf43.4 kg (205 lb 12.8 oz)02/04/2018 9:17 AM GRINuqaea727.2 cm (5' 2.68 )02/04/2018 9:17 AM EDTBody Mass Index36.8302/04/2018 9:17 AM EDT Plan of Treatment Not on file Insurance * Guarantor: Crystal Jones TypeRelation to PatientDate of BirthPhone Billing AddressPersonal/FbpxpzRuafuh85/02/1977 [address] [place] [address] Care Teams Team MemberRelationshipSpecialtyStart DateEnd Walker Avalos MD PCP - GeneralPediatrics02/24/12
[2025-06-04 00:30] LABS: Glucose Urine UA NEGATIVE (NEGATIVE)
[2025-06-04 00:31] LABS: HCG Qualitative Urine* NEGATIVE (NEGATIVE)
[2025-06-04 00:36] LABS: Cast Seen? NONE SEEN #/LPF (NONE SEEN); Crystals Seen? None Seen #/HPF (None Seen); Urine Culture Indicated YES-FRMC
[2025-06-04] MEDS: FLUCONAZOLE 150 MG TABLET PO (01:55)
--- NOTE | 2025-06-04 02:16 | ED_ITS ---
HPI HPI - General Adult General Chief complaint: Urogenital-Female Stated complaint: PAIN/BURNING VAGINAL AREA Time Seen by Provider: 06/04/25 00:05 Source: patient Mode of arrival: walk-in Limitations: no limitations History of Present Illness HPI narrative: Patient is a 24-year-old female presenting to the emergency department for evaluation of vaginal discomfort. Patient states that over the last month she has been having vaginal irritation, itchiness, and burning sensation. Over the last day she has been having some discharge as well. She states she is sexually active with her boyfriend. She has not been sexually active in over a month and a half. She is in a monogamous relationship for a long period of time with no new sexual partners. She states she was tested for STDs 10 months ago when she was and everything came back negative. She denies any abdominal pain or flank pain. No nausea or vomiting. No fevers or chills. No chest pain or shortness of breath. Related Data Home Medications ?Medication ?Instructions ?Recorded ?Confirmed metformin 500 mg tablet mg 12/04/23 bupropion HCl 100 mg tablet mg PO 06/04/25 fluoxetine 20 mg capsule mg 06/04/25 levonorgestrel 0.15 mg-ethinyl tab 06/04/25 estradiol 0.03 mg tablet (Altavera (28)) trazodone 50 mg tablet mg 06/04/25 Previous Rx's ?Medication ?Instructions ?Recorded fluconazole 150 mg tablet 150 mg PO DAILY 1 dose #1 ta b 06/04/25 Allergies Allergy/AdvReac Type Severity Reaction Status Date / Time lamotrigine (From Lamictal) Allergy Rash Verified 06/04/25 00:08 Opioid HPI Opioid Management Most Recent Opioid Data: Last Pain Scale 6 12/04/23, 23:38 Review of Systems ROS Status of ROS 10 or more systems reviewed and unremark able except as noted in history and below PFSH PFSH Social History Smoking status: Never smoker Little interest or pleasure in doing things: not at all Feeling down, depressed, or hopeless: not at all Exam Narrative Exam Narrative: CONSTITUTIONAL: Well-appearing, answering questions and following commands appropriately SKIN: Was warm and dry. EYES: Sclerae white. EARS, NOSE, THROAT: Moist oral mucosa. RESPIRATORY: Nonlabored respirations CARDIOVASCULAR: Normal rate and regular rhythm. There is no S3, S4, murmur, rub. GASTROINTESTINAL: Abdomen is soft, nontender, nondistended MUSCULOSKELETAL: No peripheral edema. PELVIC: Pelvic examination performed with female nurse radio frequency engineer demonstrated an erythematous and edematous vulva. On speculum examination, there is a mild amount of clumpy white, cottage cheeselike discharge. No significant purulence. No tenderness with speculum examination. Constitutional Vital Signs, click to edit/add: Last Vital Signs Temp 98.4 F 06/04/25 00:05 Pulse 91 H 06/04/25 00:05 Resp 18 06/04/25 00:05 BP 133/90 06/04/25 00:05 Pulse Ox 97 06/04/25 00:05 O2 Del Method Room Air 06/04/25 00:05 Course Vital Signs Vital signs: Vital Signs Temperature 98.4 F 06/04/25 00:05 Pulse Rate 91 H 06/04/25 00:05 Respiratory Rate 18 06/04/25 00:05 Blood Pressure 133/90 06/04/25 00:05 Pulse Oximetry 97 06/04/25 00:05 Oxygen Delivery Method Room Air 06/04/25 00:05 Temperature 98.4 F 06/04/25 00:05 Pulse Rate 91 H 06/04/25 00:05 Respiratory Rate 18 06/04/25 00:05 Blood Pressure 133/90 06/04/25 00:05 Pulse Oximetry 97 06/04/25 00:05 Oxygen Delivery Method Room Air 06/04/25 00:05 Medical Decision Making [facility] Narrative Medical decision making narrative: My clinical impression is of the patient's symptoms are secondary to yeast vaginitis. Other differential diagnosis includes bacterial vaginosis, gonorrhea/chlamydia/trichomonas. She has no significant abdominal pain or fevers to suggest PID. Wet mount and [id number] were sent. test negative. Wet mount demonstrated few budding yeast, rare hyphae. No clue cells or trichomonas. Many bacteria. I do believe the patient is stable for discharge. Patient's presentation is most likely consistent with yeast vaginitis. She was given a dose of 150 mg oral Diflucan here in the ED. They were instructed to follow up with her APPRENTICE JOCKEY should her symptoms persist. Return precautions were given including any new or worsening symptoms. They were given a prescription for Diflucan 150 mg to take in 72 hours should her symptoms not improve. Patient understands and agrees to the plan. FINAL IMPRESSION: #Acute yeast vaginitis DISPOSITION: Discharged home CONDITION: Good Lab Data Lab results reviewed: Yes I reviewed the patient's lab results Labs: Lab Results 06/04/25 Range/Units 00:15 Urine Color Yellow (YELLOW) Urine Clarity Cloudy A (CLEAR) Urine pH 6.5 (5.0-9.0) Ur Specific [place] 1.025 (1.005-1.025) Urine Protein Negative (NEG/TRACE) mg/dL Urine Glucose (UA) Negative (NEGATIVE) mg/dL Urine Ketones Trace A (NEGATIVE) mg/dL Urine Occult Blood Small A (NEGATIVE) Urine Nitrite Negative (NEGATIVE) Urine Bilirubin Negative (NEGATIVE) Urine Urobilinogen 0.2 (0.2-1.0) EU/dL Ur Leukocyte Esterase Large A (NEGATIVE) Urine RBC 2-5 A (0-2) #/HPF Urine WBC >100 A (NONE SEEN) #/HPF Ur Squamous Epith Cells Many A (NONE/RARE) #/LPF Urine Crystals None seen (None Seen) #/HPF Urine Bacteria Large A (NONE SEEN) #/HPF Urine Casts None seen (NONE SEEN) #/LPF Urine Mucus Small A (NONE SEEN) Ur Culture Indicated? Yes-[facility] [place] Urine HCG, Qual Negative (NEGATIVE) Discharge Plan Discharge Chief Complaint: Urogenital-Female Clinical Impression: Yeast vaginitis Patient Disposition: Home, Self-Care Time of Disposition Decision: 01:49 Condition: Good Mode of Transportation: Private Vehicle Prescriptions / Home Meds: New fluconazole 150 mg tablet 150 mg PO DAILY Qty: 1 0RF Rx Instructions: take on 06/06/2025 if symptoms persist No Action trazodone 50 mg tablet levonorgestrel-ethinyl estrad [Altavera (28)] 0.15-0.03 mg tablet bupropion HCl 100 mg tablet PO fluoxetine 20 mg capsule metformin 500 mg tablet Print Language: Faroese Instructions: Yeast Infection (ED) Referrals: Ying Reid MANAGER WEB APPLICATION [Primary Care Provider, Family Practice] - 1 week Discharge Date/Time: 06/04/25 02:01
[2025-06-06 20:08] LABS: Neisseria gonorrhoeae, NAA Negative (Negative)
== END 2025-06-04 02:01 | disposition home or self-care (01) ==
PROVIDERS: Emergency Provider Student in an Organized Health Care Education/Training Program; PCP Nurse Practitioner
DX: B37.31 Acute candidiasis of vulva and vagina (principal)
CPT/HCPCS: 81001; 84703; 87086; 87088; 87106; 87210; 87480; 87491; 87510; 87591; 87660; 99283